=== PATIENT | female | born 1975 | race Caucasian/White ===

== ENCOUNTER 2018-03-16 22:26 | Emergency (ER) | payer MEDICARE, OTHER, SELFPAY ==
[2018-03-16 22:31] VITALS: BP 144/86; PULSE 71; RESP 17; TEMP 36.9; O2SAT 96
--- NOTE | 2018-03-16 22:58 | ED.GENADUL ---
Disposition Clinical Impression: Diarrhea, Dehydration Disposition: HOME Condition: Good Instructions: Dehydration (ED), Acute Diarrhea (ED) Additional Instructions: Small, frequent sips of fluids to maintain hydration. Home to rest this evening. Continue all regularly prescribed medications. Return to the emergency department for any acute concerns. Medical Decision Making - Lab Data Laboratory Results - last 24 hr 03/16/18 03/16/18 23:37 23:37 WBC 7.55 RBC 4.91 Hgb 13.7 Hct 41.0 MCV 83.5 MCH 27.9 MCHC 33.4 RDW 16.0 H Plt Count 185 MPV 11.9 H Immature Gran % 0.1 Neutrophils % 61.8 Lymphocytes % 23.8 Monocytes % 11.3 Eosinophils % 2.6 Basophils % 0.4 Absolute Neutrophils 4.66 Absolute Lymphocytes 1.80 Absolute Monocytes 0.85 H Absolute Eosinophils 0.20 Absolute Basophils 0.03 Sodium 140 Potassium 3.6 Chloride 106 Carbon Dioxide 27.6 Anion Gap 6.4 BUN 19 H Creatinine 0.74 Estimated GFR/1.73 m2 >= 60.00 Glucose 88 Calcium 8.7 Magnesium 2.3 Total Bilirubin 0.4 AST 15 ALT 24 Alkaline Phosphatase 109 Total Protein 6.6 Albumin 3.2 L Results reviewed for labs ordered during visit: Yes - Medical Decision Making 42-year-old female with recurrent diarrhea presents with increased episodes approximately 20 today. She is afebrile and well-appearing. She has increased bowel sounds on exam. Patient had IV access established, given fluid bolus, antiemetic, referred for laboratory testing. Comprehensive panel unremarkable except BUN of 19. White blood cell count 7, hematocrit 41, platelets 185. Patient improved following rehydration. She does likely have a component of short gut syndrome, therefore at risk for rapid GI losses. Able to tolerate liquids by mouth. Subjectively better. Stable and appropriate for home management. History of Present Illness - General Chief complaint: Nausea/Vomit/Diar Stated complaint: SEVERE DEHYDRATION Time Seen by Provider: 03/16/18 22:57 Source: patient, RN notes reviewed Mode of arrival: ambulatory Limitations: no limitations - History of Present Illness Initial comments: Diarrhea: 42-year-old female with a history of recurrent and near daily episodes of loose stool, now somewhat worsened since beginning the ketogenic diet. She also has history of short gut syndrome status post bowel resection. She presents today with generalized moderate weakness, lightheadedness with rising, multiple episodes of diarrhea today. No sniffing and vomiting. She has not had a fever. There has been no blood in the stool. Denies bloating or distention, no increased flatus. No exacerbating or ameliorating factors. - Related Data Lactobacillus Acidophilus [Acidophilus] 1 each PO DAILY 06/23/15 RiTUXimab [Rituxan] 10 mg IV DIRECTED vial 06/23/15 Multivitamin [Multi-Vitamin Daily] 1 each PO DAILY 11/03/15 SUMAtriptan [Imitrex] 50 mg PO 1 PRN,REPEAT IN 1 HR #18 tab 01/14/17 Cholecalciferol (Vitamin D3) [Vitamin D3] 1,000 unit PO DAILY 02/18/17 Folic Acid 1 mg PO DAILY tab-cap 02/28/17 Lactobacillus Rhamnosus R0011 [Probiotic Digestive Care] 1 each PO 02/28/17 Thiamine HCl 100 mg PO DAILY 02/28/17 Trazodone HCl 50 mg PO HS PRN #30 tab 10/11/17 Gabapentin 0 PO HS 11/21/17 Leflunomide 20 mg PO DAILY tab-cap 11/21/17 Apixaban [Eliquis] 5 mg PO BID #60 tab 01/15/18 Clonazepam 1 mg PO BID PRN #28 tab-cap 01/29/18 Allergies Allergy/AdvReac Type Severity Reaction Status Date / Time Sulfa (Sulfonamide Allergy Unknown Wheezing Unverified 01/29/18 12:40 Antibiotics) Latex, Natural Rubber AdvReac Unverified 01/29/18 12:40 medical tape AdvReac Mild local Uncoded 12/24/15 18:24 irritation Review of Systems Other: 6 systems reviewed, otherwise negative Past Medical History - Past Medical History Medical history: arthritis (Rheumatoid), GERD, PE cirrhosis, hernia, renal calculi Surgical history: cholecystectomy, - Social History Alcohol use: rarely, occasionally Drug use: none General Exam - General Limitations: no limitations General appearance: alert, in no apparent distress - Head Head exam: Present: atraumatic, normocephalic - Eye Eye exam: Present: PERRL, EOMI - ENT ENT exam: Present: mucous membranes dry - Neck Neck exam: Present: normal inspection - Respiratory Respiratory exam: Present: normal lung sounds bilaterally. Absent: respiratory distress - Cardiovascular Cardiovascular Exam: Present: regular rate, normal rhythm - GI/Abdominal GI/Abdominal exam: Present: soft, hyperactive bowel sounds. Absent: distended, tenderness - Extremities Exam Extremities exam: Present: normal inspection - Neurological Exam Neurological exam: Present: alert, oriented X3 - Psychiatric Psychiatric exam: Present: normal affect, normal mood - Skin Skin exam: Present: warm, dry, intact Course Vital Signs - 24 hr // 22:31 Temperature 36.9 C Pulse 71 Respiratory 17 Rate Blood Pressure 144/86 Pulse Oximetry 96
[2018-03-16 23:54] LABS: Abs Immature Grans 0.01 k/cumm (0.0-0.09); Absolute Basophil Count 0.03 k/cumm (0.0-0.2); Absolute Monocyte Count 0.85 k/cumm (0.11-0.7); Absolute Neutrophil Count 4.66 k/cumm (1.2-6.7); Basophils % 0.4; Eosinophils % 2.6; HGB 13.7 g/dL (12.0-15.5); Immature Grans % 0.1; Lymphocytes % 23.8; Mean Corp. HGB Concentration 33.4 g/dL (32.0-36.0); Mean Corpuscular Hemoglobin 27.9 pg (27.0-33.0); Mean Corpuscular Volume 83.5 fL (80-95); Mean Platelet Volume 11.9 fL (8.0-11.0); Monocytes % 11.3; Neutrophils % 61.8; Platelet Count 185 x1000/uL (130-400); RBC 4.91 m/cumm (4.00-5.20); White Blood Cell Count 7.55 k/cumm (4.4-10.8)
[2018-03-17] MEDS: Normal Saline 1,000 ML 1000 ML IV ×2 (00:01→00:40)
[2018-03-17] MEDS: Ondansetron 4 MG/2 ML VIAL IVP (00:02)
[2018-03-17 00:10] LABS: ALT 24 U/L (12-78); AST 15 U/L (15-37); Albumin 3.2 g/dL (3.4-5.0); Alkaline Phosphatase 109 U/L (46-116); Anion Gap 6.4 mmol/L (3-11); BUN 19 mg/dL (7-18); Bilirubin, Total 0.4 mg/dL (0.2-1.0); CO2 27.6 mmol/L (21.0-32.0); CREATININE 0.74 mg/dL (0.55-1.02); Calcium 8.7 mg/dL (8.5-10.1); Chloride 106 mmol/L (98-107); Glucose 88 mg/dL (70-100); Magnesium 2.3 mg/dL (1.8-2.4); Potassium 3.6 mmol/L (3.5-5.1); Sodium 140 mmol/L (136-145); Total Protein 6.6 g/dL (6.4-8.2)
[2018-03-17 03:00] VITALS: BP 140/84; PULSE 70; RESP 18; O2SAT 96
== END 2018-03-17 02:29 | disposition home or self-care (01) ==
PROVIDERS: Emergency Provider Emergency Medicine; PCP Nurse Practitioner
DX: R19.7 Diarrhea, unspecified (principal); E86.0 Dehydration; K91.2 Postsurgical malabsorption, not elsewhere classified; R42 Dizziness and giddiness
CPT/HCPCS: 36415; 80053; 96361; 96374; 99284; 83735; 85025; J2405

== ENCOUNTER 2018-10-02 20:20 | Emergency (ER) | payer MEDICARE, OTHER, SELFPAY ==
[2018-10-02 20:26] VITALS: BP 173/58; PULSE 63; RESP 20; TEMP 36.8; O2SAT 98
--- NOTE | 2018-10-02 20:44 | ED.GENADUL_ITS ---
Discharge Plan Disposition Patient Disposition: HOME Condition: Good Discharge Details Chief Complaint: FacialProb Clinical Impression: History of trigeminal neuralgia, TMJ (dislocation of temporomandibular joint) Primary Care Provider: Rosa Elena Conway ED Provider: Esvin Egan Home Meds and New Rx's Prescriptions: New acetaminophen [Mapap Extra Strength] 500 MG tablet 1,000 mg PO Q6H 5 Days Qty: 60 RF: 0 ibuprofen [Motrin IB] 200 MG tablet 600 mg PO Q6H 5 Days Qty: 60 RF: 0 carbamazepine 100 mg capsule, ER multiphase 12 hr 100 mg PO BID Qty: 10 RF: 0 No Action Rituxan 10 MG/1 ML concentrate 10 mg IV DIRECTED RF: 0 Lactobacillus acidophilus 1 EACH capsule 1 ea PO DAILY RF: 0 multivitamin [Daily Multi-Vitamin] 1 EACH tablet 1 ea PO DAILY RF: 0 sumatriptan succinate [Imitrex] 50 MG tablet 50 mg PO 1 PRN,REPEAT IN 1 HR Qty: 18 RF: 3 folic acid 1 MG tablet 1 mg PO DAILY RF: 0 hydroxychloroquine 200 mg Tablet 1 tab PO DAILY RF: 0 Discharge Instructions Instructions: Trigeminal Neuralgia (ED), Temporomandibular Disorder (ED) Additional Instructions: Please take medications as directed. Please follow-up with your primary care provider as soon as possible for reassessment. If you notice any worsening of your symptoms, or any new symptoms such as vomiting, diarrhea, fever, chills, shortness of breath, chest pain, numbness, weakness, or fainting , please return immediately to the emergency department for reevaluation. Please follow up with your primary care provider as soon as possible for reassessment and reevaluation. As always, it was a pleasure participating in your medical care today. Referrals: Rosa Elena Conway, ANA [Primary Care Provider] - Discharge Data Discharge Date/Time-TO BE ENTERED AT DEPARTURE: 10/02/18 21:07 Medical Decision Making This is a very pleasant 43-year-old female who presents today with 1-2 days of signs and symptoms concerning for trigeminal neuralgia complicated by TMJ. She has left-sided jaw pain primarily located over the left temporomandibular joint, however in conjunction with this there is some associated nerve like pain with tingling, is a cold-like sensation, and sharp sensation over the trigeminal nerve distribution. Physical exam demonstrates no neurologic abnormalities, and a clinical and neurologic exam inconsistent with a CVA or stroke. Because of the nature of the patient's pain, I did perform a local block with a 50-50 mixture of 1% lidocaine and 0.25% bupivacaine with no epinephrine. 8 cc total were injected, 4 over the left TMJ, and for the location of her tooth that was previously removed at the patient's personal request. The patient had complete resolution of her symptoms with this. With no clinical evidence of abscess in the tooth, no jaw abnormalities on exam, reassuring vital signs, no systemic symptoms concerning for fever, and a physical exam inconsistent with ACS, or a neurologic abnormality upstroke, feel that her signs and symptoms at this time are clinically consistent with trigeminal neuralgia and TMJ pain. With complete resolution of her symptoms after block, we will prescribe carbamazepine for trigeminal neuralgia, and r ecommend continued Tylenol or Motrin. We discussed the importance of follow-up with her dentist as well as her PCP and the patient understands. I have extensively reviewed the treatment plan and discharge instructions with the patient and their family. I have addressed all patient concerns at this time. The patient and family was made aware of what symptoms to monitor for that would warrant a return to the emergency department. Discussed the plan with the patient and family, they demonstrate verbal understanding and agreement with our assessment and plan at this time. HPI General Date/Time Provider Initiated Documentation: 10/02/18 20:28 . HPI Narrative: This is a pleasant 43-year-old female with a past medical history of rheumatoid arthritis, who presents today for left jaw and left tooth pain. The patient states that 2-3 weeks ago she had her bottom left tooth removed, and since then has had some residual numbness and tingling, however over the last 1- 2 days she has noted significant left TMJ pain, as well as pain near to the area where her tooth was removed. She describes it as a burning and sharp-like sensation with cold stabbing-like sensation as well. It radiates in the distribution of the trigeminal nerve over the left upper forehead, face and left jaw. No associated radiation to the neck, no pain or associated symptoms in the chest, shoulders, or arms. She denies any chest pressure or heaviness. She denies any history of cardiac disease or any family history of cardiac disease. Symptoms are made worse with chewing. They are not improved with Tylenol. She denies any trauma, and she denies any systemic symptoms of fever or chills. She has no other complaints at this time. Related Data Home Medications Medication Instructions Recorded Confirmed Lactobacillus acidophilus 1 ea PO DAILY 06/23/15 10/02/18 Rituxan 10 mg IV DIRECTED vial 06/23/15 10/02/18 multivitamin [Daily Multi-Vitamin] 1 ea PO DAILY 11/03/15 10/02/18 sumatriptan succinate [Imitrex] 50 mg PO 1 PRN,REPEAT IN 1 HR #18 01/14/17 tab folic acid 1 mg PO DAILY tab-cap 02/28/17 10/02/18 acetaminophen [Mapap Extra 1,000 mg PO Q6H 5 Days #60 tab 10/02/18 Strength] carbamazepine 100 mg PO BID #10 cap 10/02/18 hydroxychloroquine 1 tab PO DAILY 10/02/18 10/02/18 ibuprofen [Motrin Ib] 600 mg PO Q6H 5 Days #60 tab 10/02/18 Previous Rx's Medication Instructions Recorded acetaminophen [Mapap Extra 1,000 mg PO Q6H 5 Days #60 tab 10/02/18 Strength] carbamazepine 100 mg PO BID #10 cap 10/02/18 ibuprofen [Motrin Ib] 600 mg PO Q6H 5 Days #60 tab 10/02/18 Allergies Allergy/AdvReac Type Severity Reaction Status Date / Time Sulfa (Sulfonamide Allergy Unknown Wheezing Unverified 10/02/18 20:36 Antibiotics) Latex, Natural Rubber AdvReac Unverified 10/02/18 20:36 medical tape AdvReac Mild local Uncoded 10/02/18 20:36 irritation General Stated Complaint: FacialProb SINTIA: 3 Review of Systems Review of Systems All systems reviewed & are unremarkable except as noted in HPI and below PFSH Medical History Dysmenorrhea Pulmonary embolism Surgical History section (~2011) Ligation of fallopian tube (12/08/11) Family History Mother No problems noted. Father No problems noted. Social History Smoking/Tobacco Use Status: Never Exam Narrative Exam Narrative: 1.Const: Well-nourished, Well-developed, appearing stated age 2.Eyes: PERRL, no conjunctival injection, and symmetrical lids. 3.ENT: Atraumatic external nose and ears. Moist MM. Neck: Symmetric, trachea midline, No thyromegaly. Worsening tenderness on palpation over the TMJ, as well as over the left lower jaw. No neck tightness or stiffness. Oral exam demonstrates no evidence of abscess, fluctuance around the removed tooth, or other abnormalities. No dental caries. Removed tooth location demonstrates excellent gingival healing. 4.CVS: +S1/S2, No murmurs or gallops. Peripheral pulses 2+ and equal in all extremities. Brisk capillary refill in all extremities. 5.RESP: Unlabored respiratory effort. Clear to auscultation bilaterally. No wheezes rales or rhonchi 6.GI: Soft, Nontender/Nondistended, No hepatosplenomegaly. No guarding or rebound. 7.MSK: Normocephalic/Atraumatic, Extremities w/o deformity or ttp No cyanosis or clubbing, Normal movement of all extremities 8.Skin: Warm, Dry. No rashes or lesions. 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 Sensation grossly intact, no focal neurologic deficits. All 6 cardinal planes of vision are fully intact. No evidence of rotatory or vertical nystagmus. The patient demonstrated a normal [id number], good dexterity. There was no evidence of dysdiadochokinesia. Patient was able to ambulate without difficulty. There was no wide-based gait. Romberg, and oesm-[id number] are both normal on testing. Sensation was intact bilaterally as well as muscle strength bilaterally for all extremities. Patient was able to verbalize butter cup with no slurring, or miss pronunciation. 10.Psych: (AAO) x3. Appropriate mood and affect Course Vital Signs Temperature 36.8 C 10/02/18 20:26 Pulse 63 10/02/18 20:26 Respiratory Rate 20 10/02/18 20:26 Blood Pressure 173/58 H 10/02/18 20:26 Pulse Oximetry 98 10/02/18 20:26 Temperature 36.8 C 10/02/18 20:26 Temperature Source Temporal Artery Scan 10/02/18 20:26 Pulse 63 10/02/18 20:26 Respiratory Rate 20 10/02/18 20:26 Respiratory Effort Non-Labored 10/02/18 20:26 Blood Pressure 173/58 H 10/02/18 20:26 Blood Pressure Position Sitting 10/02/18 20:26 Pulse Oximetry 98 10/02/18 20:26 Oxygen Delivery Method Room Air 10/02/18 20:26 Oxygen Flow Rate 0 10/02/18 20:26 Pain Level 8 10/02/18 20:30
[2018-10-02 21:18] VITALS: BP 173/58; PULSE 77; RESP 16; TEMP 36.9; O2SAT 98
== END 2018-10-02 21:07 | disposition home or self-care (01) ==
LOC: ER 20:59
PROVIDERS: Emergency Provider Student in an Organized Health Care Education/Training Program; PCP Nurse Practitioner
DX: G50.0 Trigeminal neuralgia (principal); M26.622 Arthralgia of left temporomandibular joint; Y84.8 Other medical procedures as the cause of abnormal reaction of the patient, or of later complication, without mention of misadventure at the time of the procedure
CPT/HCPCS: 64402

== ENCOUNTER 2018-10-05 02:02 | Emergency (ER) | payer MEDICARE, SELFPAY ==
[2018-10-05 02:10] VITALS: BP 165/100; PULSE 84; RESP 20; TEMP 37; O2SAT 100
--- NOTE | 2018-10-05 02:19 | W.ED.GENAD ---
Discharge Plan Disposition Patient Disposition: HOME Condition: Good Discharge Details Chief Complaint: DentalOral Clinical Impression: Dental infection Primary Care Provider: Rosa Elena Conway ED Provider: Johnny Palomares Meds and New Rx's Prescriptions: New hydrocodone-acetaminophen 10-325 mg Tablet 1 tab PO Q6H PRN (Reason: Pain) Qty: 10 RF: 0 amoxicillin-pot clavulanate [Augmentin] 875-125 mg tablet 1 tab PO BID Qty: 14 RF: 0 Continued Rituxan 10 MG/1 ML concentrate 10 mg IV DIRECTED RF: 0 Lactobacillus acidophilus 1 EACH capsule 1 ea PO DAILY RF: 0 multivitamin [Daily Multi-Vitamin] 1 EACH tablet 1 ea PO DAILY RF: 0 sumatriptan succinate [Imitrex] 50 MG tablet 50 mg PO 1 PRN,REPEAT IN 1 HR Qty: 18 RF: 3 folic acid 1 MG tablet 1 mg PO DAILY RF: 0 hydroxychloroquine 200 mg Tablet 1 tab PO DAILY RF: 0 ibuprofen [Motrin IB] 200 MG tablet 600 mg PO Q6H 5 Days Qty: 60 RF: 0 Discontinued acetaminophen [Mapap Extra Strength] 500 MG tablet 1,000 mg PO Q6H 5 Days Qty: 60 RF: 0 carbamazepine 100 mg capsule, ER multiphase 12 hr 100 mg PO BID Qty: 10 RF: 0 Discharge Instructions Instructions: Dental Abscess (ED) Additional Instructions: You appear to have a dental infection. Please take antibiotic as directed. You may use the hydrocodone/acetaminophen for severe pain. Use ibuprofen for mild pain. Contact your dentist on Saturday for follow-up. Return to ED for difficulty breathing, inability to swallow, worsening pain or swelling to the face, high fever. Medical Decision Making Patient appears to have a significant dental infection as a cause of her pain and swelling. She is quite uncomfortable and crying. She is given Augmentin for the infection. She is given hydrocodone/acetaminophen for pain. She is also given an injection of Toradol. Patient eventually got enough relief that she was comfortable. She did develop some nausea and was given Zofran ODT. She will be discharged home to continue Augmentin. She is given a hydrocodone/acetaminophen for use in the morning as well as prescription for 10 more. She was given the state information sheet and informed consent was signed. She was told not to use regular Tylenol while using hydrocodone/acetaminophen. She may continue to use Motrin. She needs to contact her dentist on Saturday for follow-up. Return to ED for fever, difficulty breathing, inability to swallow, worsening pain swelling of the face. HPI General Mode of arrival: ambulatory. Date/Time Provider Initiated Documentation: 10/05/18 02:05. Limitations to Documentation: no limitations. Information obtained by: patient. HPI Narrative: Patient presents with left jaw pain and swelling. Patient seen here a few days ago for jaw pain. At that time had an injection and was prescribed medications for trigeminal neuralgia as well as possible dental problem. She has been unable to get the carbamazepine filled. She does have an appointment to see primary care. Pain has never really got better. If anything it is worse. Tonight her face began to swell up. She is not having any difficulty breathing. She has discomfort with swallowing but is able to swallow. She is in a significant amount of pain and comes in for evaluation. Related Data Home Medications Medication Instructions Recorded Confirmed Lactobacillus acidophilus 1 ea PO DAILY 06/23/15 10/02/18 Rituxan 10 mg IV DIRECTED vial 06/23/15 10/05/18 multivitamin [Daily Multi-Vitamin] 1 ea PO DAILY 11/03/15 10/05/18 sumatriptan succinate [Imitrex] 50 mg PO 1 PRN,REPEAT IN 1 HR #18 01/14/17 10/05/18 tab folic acid 1 mg PO DAILY tab-cap 02/28/17 10/05/18 hydroxychloroquine 1 tab PO DAILY 10/02/18 10/05/18 ibuprofen [Motrin IB] 600 mg PO Q6H 5 Days #60 tab 10/02/18 10/05/18 amoxicillin-pot clavulanate 1 tab PO BID #14 tab 10/05/18 [Augmentin] hydrocodone-acetaminophen 1 tab PO Q6H PRN #10 tab 10/05/18 Previous Rx's Medication Instructions Recorded ibuprofen [Motrin IB] 600 mg PO Q6H 5 Days #60 tab 10/02/18 amoxicillin-pot clavulanate 1 tab PO BID #14 tab 10/05/18 [Augmentin] hydrocodone-acetaminophen 1 tab PO Q6H PRN #10 tab 10/05/18 Allergies Allergy/AdvReac Type Severity Reaction Status Date / Time Sulfa (Sulfonamide Allergy Unknown Wheezing Unverified 10/05/18 02:17 Antibiotics) Latex, Natural Rubber AdvReac Unverified 10/05/18 02:17 medical tape AdvReac Mild local Uncoded 10/05/18 02:17 irritation General Stated Complaint: DentalOral SINTIA: 4 Review of Systems Constitutional Denies chills, Denies fever(s), Reports headache(s) and Denies weakness Eyes Denies change in vision and Denies eye pain ENT Reports dental pain, Denies otalgia, Reports facial pain, Reports headache(s), Denies lip swelling, Reports neck pain, Denies throat swelling and Denies tongue swelling Cardiovascular Denies dyspnea Respiratory Denies cough, Denies dyspnea and Denies stridor Musculoskeletal Reports neck pain and Denies numbness Integumentary/Breasts Denies erythema Neurologic Denies confusion, Reports headache(s), Denies focal weakness, Denies numbness and Denies weakness Psychiatric Denies confusion Allergic/Immunologic Denies lip swelling, Denies throat swelling and Denies tongue swelling [facility] Medical History Dysmenorrhea Pulmonary embolism Surgical History section (~2011) Ligation of fallopian tube (12/08/11) Family History Mother No problems noted. Father No problems noted. Social History Smoking/Tobacco Use Status: Never Exam Const General: cooperative and uncomfortable Orientation: alert and oriented x3 HENMT Head: normocephalic and atraumatic Ears: external ears normal Face and sinus: no erythema, no fluctuance, tenderness on the left mandible and other (left mandibular/facial swelling) Mouth: oropharynx normal Teeth and gingiva: gingiva normal and other (percussion tenderness of 18) Throat: posterior oropharynx normal and uvula midline Neck Neck: no lymphadenopathy, trachea midline, supple and tender (left anterior neck under jaw) Resp Effort & Inspection: normal respiratory effort and no stridor Auscultation: clear to auscultation bilaterally Skin General skin exam: no erythema Neuro General: alert, moves all extremities, no focal motor deficits and CN's II-XI intact bilaterally Course Vital Signs Temperature 98.6 F 10/05/18 02:10 Pulse 84 10/05/18 02:10 Respiratory Rate 20 10/05/18 02:10 Blood Pressure 165/100 H 10/05/18 02:10 Pulse Oximetry 100 10/05/18 02:10 Temperature 98.6 F 10/05/18 02:10 Temperature Source Temporal Artery Scan 10/05/18 02:10 Pulse 84 10/05/18 02:10 Respiratory Rate 20 10/05/18 02:10 Respiratory Effort 10/05/18 02:10 Blood Pressure 165/100 H 10/05/18 02:10 Pulse Oximetry 100 10/05/18 02:10 Oxygen Delivery Method Room Air 10/05/18 02:10 Oxygen Flow Rate 0 10/05/18 02:10 Pain Level 10 10/05/18 02:16
[2018-10-05] MEDS: Amoxicillin 875/Clav. 125 TAB PO (02:31)
[2018-10-05] MEDS: HYDROcodone 10/Acetaminophen 325 TAB PO ×2 (02:37→03:32)
[2018-10-05] MEDS: Ketorolac 30 MG/ML VIAL IM (02:57)
[2018-10-05] MEDS: Ondansetron O.D.T. 4 MG TABEF PO (03:31)
== END 2018-10-05 03:55 | disposition home or self-care (01) ==
PROVIDERS: Emergency Provider Emergency Medicine; PCP Nurse Practitioner
DX: K04.7 Periapical abscess without sinus (principal)
CPT/HCPCS: 96372; 99284; J1885; J3490

== ENCOUNTER 2020-09-29 03:01 | Outpatient (CLI) | payer MEDICARE, SELFPAY ==
--- NOTE | 2020-09-29 15:59 | DI.MAMMO_ITS ---
EXAM: MG MAMMO SCREENING CLINICAL HISTORY: screening,Z12.39 TECHNIQUE: Bilateral full field digital CC and MLO mammographic images were obtained with 3D tomosyn thesis and utilizing computer aided detection (CAD). COMPARISON: Available for comparison. FINDINGS: Masses/Architectural Distortion: None seen. Microcalcifications: No suspicious pleomorphic-type are seen. Skin Thickening/Nipple Retraction: None. IMPRESSION: 1. No significant interval change with no specific features of malignancy noted. 2. Unless there is more urgent need, screening mammography is recommended, as per [employer] guidelines. BI-RADS Category 1 - Negative Breast Density - Category B - Scattered areas of fibroglandular density Breast density category C or D implies that the patient has dense breast tissue. Dense breast tissue is very common and is not abnormal but dense breast tissue can make it harder to find cancer on a ma mmogram. Also, dense breast tissue may increase their breast cancer risk. This information about the result of the mammogram report was provided to the patient to raise their awareness. Use this report when you speak with the patient about their risks for breast cancer, which includes their family hist ory. At that time, you may recommend for more screening tests (Ultrasound or MRI) as they might be us eful based on their risk. A negative radiographic report should not delay biopsy if a dominant or clinically suspicious mass is present. Up to ten percent of cancers are not identified on mammography. A negative report may reinforce clinical impression. Adenosis and dense breasts may obscure an underlying neoplasm. False positive reports average 6 to 10%. Patient will receive a letter notifying them of these results.
== END 2020-09-29 03:21 ==
PROVIDERS: PCP Nurse Practitioner; Visit Provider Nurse Practitioner
DX: Z12.31 Encounter for screening mammogram for malignant neoplasm of breast (principal)
CPT/HCPCS: 77063; 77067

== ENCOUNTER 2020-10-25 00:49 | Outpatient (CLI) | payer MEDICARE, OTHER, SELFPAY ==
--- NOTE | 2020-10-25 07:45 | DI.US_ITS ---
EXAM: US PELVIS TRANSVAGINAL CLINICAL HISTORY: dysfunctional uterine bleeding, n93.8 TECHNIQUE: Ultrasound performed using standard protocol. COMPARISON: US RENAL ULTRASOUND(P) from 10/08/2016 FINDINGS: Pelvic ultrasound was performed transabdominally and transvaginally. Uterus measures 10.8 x 3.2 x 4. 3 cm in diameter. The endometrial stripe is not well visualized myometrium is grossly unremarkable. There are a couple of small nabothian cysts. Left ovary is nonvisualized. Right ovary measures 18 x 9 x 9 millimeters and has an unremarkable fol licular appearance. Limited scanning of the kidneys shows no gross hydronephrosis or nephrolithiasis. No free fluid identified in the cul-de-sac. IMPRESSION: Technically poor visualization of endometrial stripe. Otherwise uterus unremarkable. Left ovary non visualized, right ovary unremarkable in appearance. DATA REPOSITORY:
== END 2020-10-25 00:50 ==
LOC: DI 00:50
PROVIDERS: PCP Nurse Practitioner; Visit Provider Obstetrics & Gynecology
DX: N93.8 Other specified abnormal uterine and vaginal bleeding (principal)
CPT/HCPCS: 76830; 76856

== ENCOUNTER 2020-11-01 15:34 | Outpatient (REF) | payer MEDICARE, OTHER, SELFPAY ==
--- NOTE | 2020-11-01 15:00 | ENDOMET_PTH ---
PATIENT: Monique Zamora LOC: [facility] U#:[id number] AGE/SX: 45/F ROOM: RE11/01/[address]: Brittney Rodriguez DO : 1975 BED: DIS: 11/01/2020 SPEC #: [id number] RECD: 11/01/20 17:36 STATUS: LEAH REQ #: [id number] NIESHA: 11/01/20 15:[address]: Brittney Rodriguez DEPT: Surgical Specimen RECD BY: Kenia Bender ENTERED: 11/01/20 17:36 SP TYPE: Endomet OTHR DR: Rosa Elena Conway APRN Tissues: 1 - ENDOMETRIUM BX/GRACIA Procedures: GROSS AND MICRO LEVEL 4 Comments: [id number]
== END 2020-11-01 15:35 | disposition home or self-care (01) ==
LOC: LBN 15:34
PROVIDERS: PCP Nurse Practitioner; Visit Provider Obstetrics & Gynecology
DX: N85.8 Other specified noninflammatory disorders of uterus (principal); N93.8 Other specified abnormal uterine and vaginal bleeding
CPT/HCPCS: 88305

== ENCOUNTER → 2020-11-25 13:41 | Outpatient (CLI) | payer MEDICARE, OTHER, SELFPAY ==
--- NOTE | 2020-11-25 15:36 | DI.RAD_ITS ---
EXAM: XR ANKLE LT COMPLETE CLINICAL HISTORY: glass lac r/o foreign body, laceration with ankle complication, S91.019A TECHNIQUE: 2D digital imaging was performed. COMPARISON: No exams were available for comparison FINDINGS: BONES: No acute fracture is present. No bony destructive lesion is seen. Heel spurs. JOINTS:The ankle mortise is normally aligned. SOFT TISSUE: Soft tissue swelling, greater medially. No foreign body is visible. IMPRESSION: Soft tissue swelling. No visible foreign body DATA REPOSITORY: RADIATION DOSE DELIVERED:
== END ==
PROVIDERS: PCP Nurse Practitioner; Visit Provider Nurse Practitioner Family
DX: S91.019A Laceration without foreign body, unspecified ankle, initial encounter (principal); M79.89 Other specified soft tissue disorders
CPT/HCPCS: 73610

== ENCOUNTER 2020-11-25 15:59 | Outpatient (REF) | payer MEDICARE, OTHER, SELFPAY | END 2020-11-25 16:00 | disposition home or self-care (01) | LOC: LBN 15:59 | PROVIDERS: PCP Nurse Practitioner; Visit Provider Nurse Practitioner Family | DX: S91.012A Laceration without foreign body, left ankle, initial encounter (principal); L03.116 Cellulitis of left lower limb | CPT/HCPCS: 87070; 87205 ==

== ENCOUNTER 2021-11-20 13:21 | Outpatient (CLI) | payer MEDICARE, SELFPAY ==
[2021-11-20 13:26] LABS: Abs Immature Grans 0.02 10^3/uL (0.0-0.06); Absolute Basophil Count 0.03 10^3/uL (0.0-0.2); Absolute Eosinophil Count 0.14 10^3/uL (0.0-0.7); Absolute Lymphocyte Count 1.94 10^3/uL (1.2-3.4); Absolute Monocyte Count 0.44 10^3/uL (0.1-0.8); Absolute Neutrophil Count 4.08 10^3/uL (1.2-6.7); Basophils % 0.5; ESR 23 mm/hr (0-20); Eosinophils % 2.1; HCT 44.8 % (36.0-46.0); HGB 15.2 g/dL (11.2-15.7); Immature Grans % 0.3; Lymphocytes % 29.2; MCH 28.4 pg (27.0-33.0); MCHC 33.9 % (32.0-36.0); MCV 83.6 fL (80-95); MPV 9.3 fL (8.0-11.0); Monocytes % 6.6; Neutrophils % 61.3; Nucleated RBC 0 %; Platelet Count 218 10^3/uL (130-400); RBC 5.36 10^6/uL (3.93-5.22); RDW 13.3 % (11.7-14.6); RDW-SD 40.6 fL; WBC 6.65 10^3/uL (4.4-10.8)
[2021-11-20 14:17] LABS: ALT 48 U/L (14-59); AST 34 U/L (15-37); Alkaline Phosphatase 116 U/L (46-116); Anion Gap 10.8 mmol/L (3-11); BUN 18 mg/dL (7-18); Bilirubin, Total 0.5 mg/dL (0.2-1.0); C-Reactive Protein 2.67 mg/dL (0.0-0.3); CO2 24.2 mmol/L (21.0-32.0); CREATININE 0.9 mg/dL (0.55-1.02); Calcium 9.2 mg/dL (8.5-10.1); Chloride 105 mmol/L (98-107); Glucose 111 mg/dL (74-106); Magnesium 2.3 mg/dL (1.8-2.4); Potassium 4.2 mmol/L (3.5-5.1); Sodium 140 mmol/L (136-145); Total Protein 7.2 g/dL (6.4-8.2)
[2021-11-20 14:39] LABS: Vitamin D 25 Total 37.2 ng/mL (30-100)
[2021-11-21 11:50] LABS: Lyme Ab w Rflx to Lyme Confirm Negative (Negative)
== END 2021-11-20 13:22 | disposition home or self-care (01) ==
LOC: LBO 13:29
PROVIDERS: PCP Nurse Practitioner; Visit Provider Nurse Practitioner
DX: R52 Pain, unspecified (principal); Z79.899 Other long term (current) drug therapy; J45.909 Unspecified asthma, uncomplicated
CPT/HCPCS: 36415; 80053; 82306; 85652; 83735; 85025; 86140; 86618

== ENCOUNTER 2022-08-04 16:14 | Emergency (ER) | payer MEDICARE, SELFPAY ==
--- NOTE | 2022-08-04 16:18 | NUR.NOTE ---
Nursing Note: Patient brought in by EMS and delivered to Waiting room, Recieved Call from access stating patient was leaving, PT states that they are leaving, did not want to wait, and is going to try to be seen at [facility]
--- OUTSIDE RECORDS SUMMARY | 2022-08-04 16:22 | XMS_ITS | Encounter Summary ---
:1975 Author Organization [facility] [place] [address] Care Team Providers Name Role Phone Rosa Elena Conway APRN Primary Care Provider Encounter Details Date Type Department Care Team Description 07/25/2022 Telephone Rheumatology at [facility] [place] [address] Social History Tobacco Use Types Packs/Day Years Used Date Smoking Tobacco: Every Day Cigarettes 1 Smokeless Tobacco: Never Alcohol Use Standard Drinks/Week Comments No 0 (1 standard drink = 0.6 oz pure alcoho l) Sex Assigned at Date Recorded Not on file documented as of this encounter Plan of Treatment Not on filedocumented as of this encounter Visit Diagnoses Not on filedocumented in this encounter Care Teams Goodwill Ambassador Relationship Specialty Start Date End Date Rosa Elena Conway APRN PCP - General Internal Medicine 11/21/17 [address] [place], [place] [id number] documented as of this encounter
--- OUTSIDE RECORDS SUMMARY | 2022-08-04 16:22 | XMS_ITS | Encounter Summary ---
:1975 Author Organization [facility] [place] [address] Care Team Providers Name Role Phone Rosa Elena Conway APRN Primary Care Provider Reason for Visit Reason Onset Date Comments Medication Refill 07/24/2022 Encounter Details Date Type Department Care Team Description 07/24/2022 Refill Rheumatology at [facility] Nia Munguia RN Seropositive rheumatoid [facility] [place] [address] Social History Tobacco Use Types Packs/Day Years Used Date Smoking Tobacco: Every Day Cigarettes 1 Smokeless Tobacco: Never Alcohol Use Standard Drinks/Week Comments No 0 (1 standard drink = 0.6 oz pure alcoho l) Sex Assigned at Date Recorded Not on file documented as of this encounter Miscellaneous Notes Telephone Encounter - Nia Munguia RN - 07/24/2022 2:23 PM EST Call back to the patient. Nurse gave message the Provider would like to see her as it has been quite some time(over a year). The patient will call back and make an appointment. Telephone Encounter - Nia Munguia RN - 07/24/2022 1:21 PM EST Patient took last Methylprednisolone today and is the only way she manages her flares and really needs to have the additional doses as is out. Message sent to Provider to review. documented in this encounter Plan of Treatment Not on filedocumented as of this encounter Visit Diagnoses Diagnosis Seropositive rheumatoid arthritis Rheumatoid arthritis documented in this encounter Care Teams Line Installer Relationship Specialty Start Date End Date Rosa Elena Conway APRN PCP - General Internal Medicine 11/21/[address] [place] [address] documented as of this encounter
--- OUTSIDE RECORDS SUMMARY | 2022-08-04 16:22 | XMS_ITS | Encounter Summary ---
:1975 Author Organization [facility] [place] [address] Care Team Providers Name Role Phone Rosa Elena Conway APRN Primary Care Provider Encounter Details Date Type Department Care Team Description 12/22/2021 Refill Rheumatology at [facility] [place] [address] Social History Tobacco Use Types Packs/Day Years Used Date Smoking Tobacco: Every Day Cigarettes 1 Smokeless Tobacco: Never Alcohol Use Standard Drinks/Week Comments No 0 (1 standard drink = 0.6 oz pure alcoho l) Sex Assigned at Date Recorded Not on file documented as of this encounter Miscellaneous Notes Telephone Encounter - Nia Munguia RN - 12/22/2021 1:31 PM EDTSummary: Call back to the patient. Call back to patient to provider message from Provider as stated below: Per Shon CASTILLO no rx, pt has a hx of prednisone induced psychosis if she is having a flare, she can call her PCP or go to urgent care for immediate treatment she needs to be seen and does not have a scheduled appointment. Nurse states she had attempted to contact her(patient) The phone had gone to voicemail which was full/not able to leave a message to have her return the call back. Patient said Oh, I just got off the phone with the Provider, he called me directly. He said he will call in a Medrol Pack I cannot believe this. I do not want to see that Provider again I want to change to a different Provider, more in line with how I am, and to discuss my situation with I was berated on why I had not done things. I was not able to go see a Urologist as the Provider did not place the referral, and labs not ordered. This nurse encouraged the patient to chose one of the other, possibly female providers. The patient may be more comfortable with them and their style of doctoring? The patient thinks this would be good idea, and will call back later to re- schedule the appointment with a different clinician. Nurse discussed situation with Ana Lozoya DO. Dr Lozoya suggested Kimi Genao APRN for possible provider to have appointment with. Telephone Encounter - Nia Munguia RN - 12/22/2021 1:22 PM EDT TC to the patient many times(5 times). Mailbox full and not able to received any message at this time. Nurse also sent a message through [facility] Portal to go to urgent care/call PCP for more immediate treatment per Shon CASTILLO. Nurse will see if able to reach emergency contact-if appropriate. Telephone Encounter - Nia Munguia RN - 12/22/2021 10:39 AM EDT Caller: Patient Relationship: Self Clarified Two Patient Identifiers: [x] Reason For Call: Achiness x one week multiple sites Assessment/Symptom Review (onset, location, duration, what makes it better or worse, pertinent positives and negatives): Patient reported increase discomfort starting approximately one week ago. She currently is off all the RA medications. I try to stay off everything I can. Baseline complaints of joint stiffness, especially to arms bilaterally,hips, and knee. It is everywhere and then it changes. When asked about any sites red/hot/swollen patient states the worst spots are her Elbows, ribs, and hand. Sleeping poorly, and her family/ has had to help with activizes and movement in her home. This has been very troubling to her. Denied f/c/n/v and no complaints verbalized regarding urinary/bowels at this time. Has been using her Hot tub,seems to help some. I don't really want to be taking a Medrol Pack, but I know this is what I have to do Patient uses [facility] in [facility] for pharmacy needs. Nurse states she will send this note to the Provider. Nurse to call her with updated information and possible medication she may receive. Review of Systems Related to Reason for Call: System POS NEG Not Applicable Head (ENT /Neuro) [] [x] [] Cardiac [] [x] [] Respiratory [] [x] [] GI [] [x] [] [] [x] [] Musculoskeletal [x] [] [] Integumentary [] [x] [] Mental Health [] [x] [] Select Specific Decision Support Tool Used: Telephone Triage Protocols for Nurses, 5th Edition, Lilliam Garcia, 2016 Name of Guideline/Protocol Used: Pain Disposition/Plan of Care: Defer to provider recommendation Patient/Caregiver verbalizes understanding of plan of care: Yes Patient/Caregiver agrees with plan: Yes Advised patient/caregiver to: call office back for any new or worsening symptoms Patient/Caregiver demonstrates understanding via teach back: Yes documented in this encounter Plan of Treatment Not on filedocumented as of this encounter Visit Diagnoses Not on filedocumented in this encounter Care Teams Creative Art Director Relationship Specialty Start Date End Date Rosa Elena Conway APRN PCP - General Internal Medicine 11/21/17 [address] [place] [address] documented as of this encounter
--- OUTSIDE RECORDS SUMMARY | 2022-08-04 16:22 | XMS_ITS | Encounter Summary ---
:1975 Author Organization [facility] Address [address] [place] [address] Care Team Providers Name Role Phone Ramila Conwayilene Orantes APRN Primary Care Provider Reason for Visit Reason Comments Specialty Pharmacy Review abatacept (Orencia) 125 mg/m L Auto-Injector Encounter Details Date Type Department Care Team Description 03/08/2021 Specialty Pharmacy Pharmacy at [facility] Review (a [address] (Orencia) 125 mg/mL [place], [place] Auto-Injector) [id number] Social History Tobacco Use Types Packs/Day Years Used Date Smoking Tobacco: Every Day Cigarettes 0.5 Smokeless Tobacco: Never Alcohol Use Standard Drinks/Week Comments No 0 (1 standard drink = 0.6 oz pure alcoho l) Sex Assigned at Date Recorded Not on file documented as of this encounter Progress Notes [facility] - 03/08/2021 11:59 PM EDT The - Specialty Pharmacy has completed a benefits investigation for Monique Zamora to review their eligibility to fill at [facility]. Per patient's medication list they are prescribed abatacept (Orencia) 125 mg/mL Auto-Injector and the medication is able to be filled at the [facility]; however, due to excessive patient pay amount under current insurance plan, patient was advised to pursue sustainability director support. documented in this encounter Plan of Treatment Not on filedocumented as of this encounter Visit Diagnoses Not on filedocumented in this encounter Care Teams All Terrain Vehicle Racer Relationship Specialty Start Date End Date Rosa Elena Conway APRN PCP - General Internal Medicine 11/21/[address] [place] [address] documented as of this encounter
--- OUTSIDE RECORDS SUMMARY | 2022-08-04 16:22 | XMS_ITS | Encounter Summary ---
:1975 Author Organization [facility] [place] [address] Care Team Providers Name Role Phone ManRosa Elena APRN Primary Care Provider Encounter Details Date Type Department Care Team Description 12/22/2021 Orders Only [place] [facility] Shon Cabrera Seropositive [facility] JONATHAN [place] [address] [place] [address] R[place]UMATOLOGY [place] [id number] Social History Tobacco Use Types Packs/Day Years Used Date Smoking Tobacco: Every Day Cigarettes 1 Smokeless Tobacco: Never Alcohol Use Standard Drinks/Week Comments No 0 (1 standard drink = 0.6 oz pure alcoho l) Sex Assigned at Date Recorded Not on file documented as of this encounter Progress Notes Shon Cabrera PA - 12/22/2021 1:04 PM EDT Patient complaining of a polyarticular flare. Since her last visit patient reports that she has not been on hydroxychloroquine for probably about 5 years last prescription sent in by Dr. Knott was never picked up. Patient and her feel that the majority of her medical problems were related to her medical care and the medications she has been on. Patient feels that the majority of her problems are related to diet. The keto diet has been very helpful to her. 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 However her and her feel that she needs to try some intermittent low-dose Medrol to try and get her arthralgias under control because roghtnow they are severe, both hands are swollen and puffy, she has other arthralgias as well. They are aware of the side effects and will keep the dose down as low as reasonably possible. I did have the suspicion that she might be having recurrent cppd exacerbations at her last visit she was prescribed colchicine she did not pick it up because of the expense. Her and her just want to deal with the acute flareup and desires no additional intervention for now. I did suggest a retrial of hydroxychloroquine. Also discussed the implications of celiac disease. Patient was offered as needed Xanax to help deal with any anxiety caused by Medrol they declined. She takes neither NSAIDs nor tramadol although both were listed in the chart. It sounds like theremay have been an issue with tramadol in the past. May follow up here PRN, patient and generally unhappy with their medical care history. documented in this encounter Plan of Treatment Not on filedocumented as of this encounter Visit Diagnoses Diagnosis Seropositive rheumatoid arthritis Rheumatoid arthritis documented in this encounter Care Teams Thread Singer Relationship Specialty Start Date End Date Rosa Elena Conway APRN PCP - General Internal Medicine 11/21/[address] [place] [address] documented as of this encounter
--- OUTSIDE RECORDS SUMMARY | 2022-08-04 16:22 | XMS_ITS | Encounter Summary ---
:1975 Author Organization [facility] [place] [address] Care Team Providers Name Role Phone Rosa Elena Conway APRN Primary Care Provider Encounter Details Date Type Department Care Team Description 06/08/2021 Office Visit Rheumatology at [facility] Shon Cabrera Seropositive rheumatoid arth ritis (Primary Dx); [facility] JONATHAN Molina Seropositive rheumatoid arthritis of [place] [facility] current use of non -steroidal anti-inflammatories (NSAID); [place] [address] CENTER Fibromyalgia; [phone] RHEUMATOLOGY Obesity, unspecified classification, uns pecified obesity type, unspecified whether serious comorbidity present [place], [place] [address] Social History Tobacco Use Types Packs/Day Years Used Date Smoking Tobacco: Every Day Cigarettes 1 Smokeless Tobacco: Never Alcohol Use Standard Drinks/Week Comments No 0 (1 standard drink = 0.6 oz pure alcoho l) Sex Assigned at Date Recorded Not on file documented as of this encounter Last Filed Vital Signs Vital Sign Reading Time Taken Comments Blood Pressure 143/89 06/08/2021 12:45 PM EDT Pulse 77 06/08/2021 12:45 PM EDT Temperature 37.2 ??C (99 ??F) 06/08/2021 12:45 PM EDT Respiratory Rate - - Oxygen Saturation 100% 06/08/2021 12:45 PM EDT Inhaled Oxygen Concentration - - Weight 99.8 kg (220 lb) 06/08/2021 12:45 PM EDT Height - - Body Mass Index 41.59 09/23/2020 2:09 PM EST documented in this encounter Patient Instructions Patient InstructionsSShon helm PA - 06/08/2021 4:00 PM EDT Follow up 6 months Continue HCQ Follow up 6-12 months documented in this encounter Progress Notes Shon Cabrera PA - 06/08/2021 4:00 PM EDT Rheumatology Outpatient Note Chart review conducted prior to the visit includes review of PMHx, medications, allergies, and prioroffice notes. The most pertinent findings are listed below. The Patient History Form was reviewed with the patient, which included review of ROS, social hx, pmhx, famhx, current and prior medications, allergies, IZs, and ADLs. The form is scanned into the patient's chart. History of Present Illness: Monique Zamora is a 45 y.o. female who presents today for evaluation of RA. Problem List 1. Seropositive RA (RF and CCP) -Diagnosed with seropositive RA in 2006. Was following with a children's service worker at [facility]. Her RA control before was good on HCQ, MTX, and enbrel. She had very few flares on this combo. Prior xrays per patient showed no erosions. Unfortunately also got on this combination (her OCP was recalled b/c it was packaged improperly) and her prior children's service worker suggested aborting the . The patient opted not to do that and had a healthy baby boy. She had a placental abruptionand emergency . RX: - MTX - lack of efficacy - LEF - chronic diarrhea - Humira - 2ndary failure - Enbrel - 2ndary failure - RTX (1g every 4 months) - not covered by new insurance ?? 2. Diverticulitis ?? 3 Pneumatosis intestinalis - ?medication related perforation Right hemicolectomy January 2014, ileostomy, reversal July 2014. She now has chronic diarrhea. Within 15 minutes of eating she needs to go to the bathroom ?? 4. PTSD, depression and anxiety ?? 5. Fibromyalgia ?? 6. pulmonary embolism x 2 thought to be secondary to inflammatory state +OCP (See Dr. Russelljs note) 03/08/21: Per Dr. Knott: Assessment and Plan: Monique Zamora is a 45 y.o. female with seropositive RA not currently on DMARD therapy, PE X2, diverticulitis, and fibromyalgia who is following up on RA. In October we decided to start Orencia which was approved but with a high copay; Monique has not yet applied for financial assistance through the pharmaceutical [employer] and she has decided not to pursue this. Her medical history poses challenges with RA treatment. Due to history of diverticulitis and PE, DANITZA (-) and IL 6 (-) are contraindicated. Monique experienced secondary failures with TNF (-) (Enbrel, Humira). Rituxan worked well but was stopped due to insurance coverage issues. Monique wishes to avoid steroids because of significant emotional lability and psychosis from them. She is now on a ketogenic diet which worked well for her RA in the past. We discussed that a combination of DMARD therapy plus diet changes may be the best treatment for her, and she is willing to re try HCQ. ?? # Seropositive RA - active - Restart HCQ 200mg BID - this alone is unlikely to control her RA but is better than no DMARD therapy. - Next steps are to try reintroducing MTX or SSZ - cost is a barrier for Monique so triple therapy may be most reasonable - Tramadol for pain control - 50mg BID PRN ?? # Financial barrier to care - limits options for RA treatment - patient decided not to pursue financial assistance for orencia Interval History: Patient presents today for follow-up of rheumatoid arthritis she continues on hydroxychloroquine. She notices every time she loses weight she has decreased arthralgias. She is now re dedicated to losing weight as she is not significantly helpful. She reports frequent and flat fractions with a history of bladder infections and per the patient continuing infection she has a history of kidney stones butshe also gets upper respiratory tract infections. She has significant difficulty with steroids and gets steroid-induced psychosis so attempts to avoid this unless absolutely necessary. She is complaining of current pain in her hands hips and knees she utilizes Tylenol, ibuprofen, and ice to help control her arthralgias. ?? Review of Systems Constitutional: Negative for anorexia, diaphoresis, absenteeism and malaise/fatigue. Respiratory: Negative for cough, shortness of breath, hemoptysis, orthopnea and pleuritic pain. Gastrointestinal: Negative for GERD, nausea, steatorrhea and trouble swallowing. HENT: Negative. Musculoskeletal: Positive for joint pain, stiffness and joint swelling. Negative for myalgias and fracture. Endocrine: Negative for polydipsia, polyphagia, polyuria and Cushingoid appearance. Skin: Negative for erythema. Allergies Allergies Allergen Reactions ??? Latex, Natural Rubber Other reaction(s): Latex, Natural Rubber ??? Sulfa (Sulfonamide Antibiotics) Anaphylaxis Other reaction(s): Wheezing ??? Tape, Permeable Adhesive Medications Current Outpatient Medications on File Prior to Visit Medication Sig Dispense Refill ??? hydrOXYchloroQUINE (Plaquenil) 200 mg Tablet Take 1 tablet by mouth 2 times daily. 180 tablet 3 ??? traMADoL (Ultram) 50 mg Tablet Take 1 tablet by mouth 2 times daily as needed for Pain. 60 tablet 0 ??? omeprazole (PriLOSEC) 20 mg Capsule, Delayed Release(E.C.) Take 1 capsule by mouth daily. 30 capsule 11 ??? ibuprofen (Advil;Motrin) 800 mg Tablet Take 800 mg by mouth every 6 hours as needed for Pain. Indications: rheumatoid arthritis ??? brexpiprazole 0.5 mg Tablet Take by mouth daily. ??? MULTIVITAMIN/IRON/FOLIC ACID (MULTI-VIRAL ORAL) Take by mouth daily. No current facility-administered medications on file prior to visit. PMHX Patient Active Problem List Diagnosis Code ??? Rheumatoid arthritis(714.0) M06.9 ??? Anxiety F41.9 ??? Depression F32.9 ??? AMA (advanced maternal age) multigravida 35+ O09.529 ??? Obesity E66.9 ??? Pneumatosis coli K63.89 ??? Pulmonary embolism I26.99 SurgHX Past Surgical History: Procedure Laterality Date ??? SECTION 2001 ??? SECTION 2003 ??? SECTION 2011 ??? PRO COLONOSCOPY, DIAGNOSTIC 06/07/2014 COLONOSCOPY, DIAGNOSTIC performed by Beni Hernandez MD at [facility] ENDOSCOPY ??? PRO EXPLORATORY OF ABDOMEN 01/28/2014 @EXPLORATORY LAPAROTOMY, WITH/WITHOUT BIOPSY(S) performed by Mele Alexander MD at [facility] MAIN OR ? ? PRO REMVL COLON & TERM ILEUM W/ILEOCOLOSTOMY N/A 07/20/2014 @COLECTOMY, PARTIAL, WITH REMOVAL TERMINAL ILEUM, WITH ILEOCOLOSTOMY performed by Mele Alexander MD at [facility] MAIN OR ??? PRO UNLISTED PROCEDURE, SMALL INTESTINE 01/28/2014 HEMICOLECTOMY, WITH ILEOSTOMY performed by Mele Alexander MD at [facility] MAIN OR Physical Examination: BP 143/89 Pulse 77 Temp 37.2 ??C (99 ??F) (Temporal) Wt 99.8 kg (220 lb) SpO2 100% BMI 41.59 kg/m?? Musculoskeletal: Puffy appearance to the hands with diffuse swelling across the dorsum of the hand and PIPs No other peripheral synovitis erythema warmth noted Physical Exam Constitutional: General: She is not in acute distress. Appearance: She is not ill-appearing, toxic-appearing or diaphoretic. HENT: Head: Normocephalic and atraumatic. Right Ear: External ear normal. Left Ear: External ear normal. Nose: Nose normal. Eyes: General: No scleral icterus. Right eye: No discharge. Left eye: No discharge. Conjunctiva/sclera: Conjunctivae normal. Cardiovascular: Rate and Rhythm: Regular rhythm. Heart sounds: Normal heart sounds. No friction rub. No gallop. Pulmonary: Effort: Pulmonary effort is normal. No respiratory distress. Breath sounds: Normal breath sounds. No stridor. No wheezing, rhonchi or rales. Chest: Chest wall: No tenderness. Abdominal: Palpations: Abdomen is soft. Tenderness: There is no guarding or rebound. Musculoskeletal: General: Swelling present. No tenderness, deformity or signs of injury. Right lower leg: No edema. Left lower leg: No edema. Skin: General: Skin is warm and dry. Coloration: Skin is not jaundiced or pale. Findings: No bruising, erythema, lesion or rash. Neurological: Mental Status: She is alert and oriented to person, place, and time. Psychiatric: Mood and Affect: Mood normal. Behavior: Behavior normal. Thought Content: Thought content normal. Judgment: Judgment normal. Impression/Recommendations : Monique Zamora is a 45 y.o. female who presents today with seropositive rheumatoid arthritis patient on hydroxychloroquine without complication patient with complaints of recurrent infections unable to tolerate prednisone due to prednisone induced psychosis. After review of her options she elected to continue hydroxychloroquine as previous further immunosuppression is problematic given how frequently she gets infections. She will continue with as needed ibuprofen and Tylenol and given the appearance of her hands, puffy, will empirically try her on colchicine to see if she improves side effects reviewed expectations discussed patient in agreement we will otherwise see her again in follow-up in 6 to 12 months sooner if desired or indicated patient in agreement with this plan. documented in this encounter Plan of Treatment Not on filedocumented as of this encounter Visit Diagnoses Diagnosis Seropositive rheumatoid arthritis - Prim yaneth Rheumatoid arthritis Seropositive rheumatoid arthritis of myles d [facility] current use of non-steroidal a nti-inflammatories (NSAID) Encounter for long-term (current) use of non-steroidal anti-inflammatories Fibromyalgia Mylagia and myositis, unspecified Obesity, unspecified classification, uns pecified obesity type, unspecified whether serious comorbidity present documented in this encounter Care Teams Brand Inspector Relationship Specialty Start Date End Date Rosa Elena Conway APRN PCP - General Internal Medicine 11/21/[address] [place] [address] documented as of this encounter
--- OUTSIDE RECORDS SUMMARY | 2022-08-04 16:23 | XMS_ITS | Encounter Summary ---
:1975 Author Organization [facility] [place] [address] Care Team Providers Name Role Phone Derrick Johnson MD Primary Care Provider [phone] Reason for Visit Reason Comments GI Problem Consultation (Routine) - Closed Specialty Diagnoses / Procedures Referred By Contact Refer red To Contact Gastroenterology Diagnoses Rheumatoid arthritis of multiple sites without organ or system involvement with positive rheumatoid factor Chronic diarrhea Rebeca Valerio, [facility] DO [facility] [place] [phone] Fax: Referral ID Status Reason Start Date Expiration Date Visits V isits Requested Authorized [id number] Closed Consult, 11/23/2016 11/23/2017 1 1 Test & Treat Encounter Details Date Type Department Care Team Description 01/24/2017 Office Visit Gastroenterology at [facility] O'Cici, Tracia, Functional diarrhea [facility] [place] [address] [facility] MEDICAL [phone] [facility] [address] Social History Tobacco Use Types Packs/Day Years Used Date Smoking Tobacco: Every Day Cigarettes Smokeless Tobacco: Never Comments: Quit in 2008 Alcohol Use Standard Drinks/Week Comments No 0 (1 standard drink = 0.6 oz pure alcoho l) Sex Assigned at Date Recorded Not on file documented as of this encounter Last Filed Vital Signs Vital Sign Reading Time Taken Comments Blood Pressure 126/74 01/24/2017 9:07 AM EDT Pulse 86 01/24/2017 9:07 AM EDT Temperature - - Respiratory Rate - - Oxygen Saturation - - Inhaled Oxygen Concentration - - Weight 86.6 kg (191 lb) 01/24/2017 9:07 AM EDT Height 155 cm (5' 1.02) 01/24/2017 9:07 AM EDT Body Mass Index 36.06 01/24/2017 9:07 AM EDT documented in this encounter Progress Notes Gage Ramos RN - 01/24/2017 9:00 AM EDT Section of Gastroenterology and Hepatology [address] [place] [address] .Monique Zamora : 1975 Patient is here for further evaluation of gastrointestinal symptoms at the request of Rebeca Valerio. HPI: Pt is here for chronic diarrhea. Hx of pneumatosis intestinalis. Hemicolectomy with ileostomy. Reversal in 2013. Hx of c diff. Several tx. Per pt last cdiff test was negative. This was . Pt notes she knows the difference between cdiff diarrhea and her chronic diarrhea. Eating is the trigger. 10-15 minutes post-prandially has cramps and diarrhea. Has to avoid certain foods as they make sx worse. When sx at their worse she is on brat diet. Or will not eat. Has had fecal incontinent episodes. Having 3 or more stools per day. Tried imodium with no relief. No blood in stool. Mucous in stools. No sx during the night. Sometimes stool/flatus at anus but has difficulty evacuating. At times does not feel empty. At timesfood in stool. Hx of anal fissures and hemorrhoids. Daily florastor. 2013 colonoscopy: The perianal and digital rectal examinations were ? normal. ? Moderate amount of thick mucous in transverse colon ? impaired complete visualization of the mucosal ? surface. Moderate colitis (?diversion colitis) noted ? throughtout colon but findings more prominent in ? transverse and descending segments. Mucosal biopsies ? obtained at 40 cm and 20 cm from anal verge. ? A sessile polyp was found in the mid transverse ? colon. The polyp was 3 mm in size. The polyp was ? removed with a cold biopsy forceps. Resection and ? retrieval were complete. Verification of patient ? identification for the specimen was done. Estimated ? blood loss was minimal. ? The exam was otherwise without abnormality. ? Impression: ?- One 3 mm polyp in the mid ? transverse colon. Resected and ? retrieved. ? - The examination was otherwise ? normal. ? - Mild ? diversion colitis noted in ? more proximal portion of residual ? colon Recommendation: ?- Discharge patient to home. With dietary changes and exercising, pt is losing weight. Has lost 30 pounds since October. No chronic nsaids. No food allergies. No reflux, dysphagia, odynophagia, n/v, chest pain. Bloating. ? Social History Social History ??? Marital status: Spouse name: N/A ??? Number of children: N/A ??? Years of education: N/A Occupational History ??? Not on file. Social History Main Topics ??? Smoking status: Current Every Day Smoker Types: Cigarettes ??? Smokeless tobacco: Never Used Comment: Quit in 2008 ??? Alcohol use No ??? Drug use: No ??? Sexual activity: Yes Partners: Male Other Topics Concern ??? Tobacco In Home No Social History Narrative Medical History: RA, ptsd, anxiety, hx of PEs, fibromyalgia Surgical History: Hemicolectomy with ileostomy; reversal of ileostomy; csection x 3; cholecystectomy Family History: no gi etiologies Allergies Allergen Reactions ??? Latex, Natural Rubber Other reaction(s): Latex, Natural Rubber ??? Sulfa (Sulfonamide Antibiotics) Anaphylaxis Other reaction(s): Wheezing ??? Tape, Permeable Adhesive Current Outpatient Prescriptions: ??? traMADol (ULTRAM) 50 mg Tablet, Take 1-2 tablets by mouth every 6 hours as needed for Pain., Disp: 240 tablet, Rfl: 3 ??? CHOLECALCIFEROL, VITAMIN D3, (VITAMIN D3 ORAL), Take 400 Units by mouth., Disp: , Rfl: ??? apixaban (ELIQUIS) 5 mg Tablet, 2.5 mg 2 times daily., Disp: , Rfl: ??? RITUXIMAB (RITUXAN IV), , Disp: , Rfl: ??? ALPRAZolam (XANAX) 1 mg Tablet, Take 1 mg by mouth 2 times daily. Take 1 mg by mouth 2 times daily, Disp: , Rfl: ??? ferrous sulfate 325 mg (65 mg iron) Tablet, Take 325 mg by mouth daily (with breakfast)., Disp: , Rfl: ??? SUMAtriptan (IMITREX) 50 mg Tablet, , Disp: , Rfl: ??? acidophilus-pectin, citrus 100 million cell-10 mg Capsule, Take by mouth., Disp: , Rfl: ??? QUEtiapine (SEROQUEL) 100 mg Tablet, Take 100 mg by mouth. Takes 100 mg a.a. And 300 mg night, Disp: , Rfl: ??? acetaminophen (TYLENOL) 500 mg Tablet, Take 1,000 mg by mouth every 6 hours as needed for Pain.,Disp: , Rfl: ??? MULTIVITAMIN/IRON/FOLIC ACID (MULTI-VIRAL ORAL), Take by mouth daily., Disp: , Rfl: ??? diclofenac 1 % Gel, Apply 2 g topically 4 times daily. (Patient not taking: Reported on 07/18/2016), Disp: 1 Tube, Rfl: 3 Review of Systems - Negative except General: Cardiac: Resp: GI: see above : MS: Neuro: Skin: Psyche: Sleep: Endo: Impression: 1. Chronic diarrhea: questran 1 packet qd. Can increase if needed; Bentyl 10- 20mg qd to qid. 2. Bloating: low fodmap diet; kefir; may need to consider hbt. 3. Pelvic floor dysfunction: foot stool or squatty potty; relaxation 4. Gif in 6-8 weeks I spent a total of 54 minutes face to face with this patient; 39 minutes were spent counseling the patient in the medical problems described above. Sincerely, Gage Ramos NP Section of Gastroenterology and Hepatology documented in this encounter Plan of Treatment Not on filedocumented as of this encounter Visit Diagnoses Diagnosis Functional diarrhea documented in this encounter Care Teams Stores Naval Relationship Specialty Start Date End Date Derrick Johnson MD PCP - General General Internal Medicine 12/27/15 [address] [place] [address] documented as of this encounter
--- OUTSIDE RECORDS SUMMARY | 2022-08-04 16:23 | XMS_ITS | Encounter Summary ---
:1975 Author Organization [facility] [place] [address] Care Team Providers Name Role Phone Derrick Johnson MD Primary Care Provider [phone] Encounter Details Date Type Department Care Team Description 03/20/2017 Unscheduled Rheumatology at [facility] Iman Rheumatoid arthritis of mult iple sites without organ or system involvement with positive rheumatoid factor; Encounter One [facility] Rebeca Reeder DO Fibromyalgia [facility] [phone] RHEUMATOLOGY [phone] [place] [address] Social History Tobacco Use Types Packs/Day Years Used Date Smoking Tobacco: Every Day Cigarettes Smokeless Tobacco: Never Comments: Quit in 2008 Alcohol Use Standard Drinks/Week Comments No 0 (1 standard drink = 0.6 oz pure alcoho l) Sex Assigned at Date Recorded Not on file documented as of this encounter Progress Notes Rebeca Valerio DO - 03/20/2017 11:59 PM EDT Outpatient Rheumatology Followup Problem List 1. RF+, CCP+ RA. -Diagnosed with seropositive RA in 2006. Was following with a emergency room doctor at [facility]. Her RA control before was good on HCQ, MTX, and enbrel. She had very few flares on this combo. Prior xrays per patient showed no erosions. Unfortunately also got on this combination (her OCP was recalled b/c it was packaged improperly) and her prior emergency room doctor suggested aborting the . The patient opted not to do that and had a healthy baby boy. She had a placental abruptionand emergency . Treated then with MTX, and enbrel. Then humira. Most recently Rituxan 1000 mg every 4 months. Methotrexate stopped due to lack of efficacy. 2. Pneumatosis intestinalis Right hemicolectomy January 2014, ileostomy, reversal July 2014. She now has chronic diarrhea. Within 15 minutes of eating she needs to go to the bathroom (we are avoiding actemra and xeljanz) 3. PTSD, depression and anxiety 4. Fibromyalgia 5. pulmonary embolism x 2 thought to be secondary to inflammatory state +OCP (See Dr. Russelljs note) Interim History: Monique returns today for routine followup of her RA in med infusion. She is receiving rituxan today. Her RA is OK. Her life is settling down a bit. She had no acute issues to discuss today. PMH: seropositive ra dX in 2006, PTSD, fibromyalgia, 3 c-sections, cholecystectomy, kidney stones, migraines, pneumatosis coli s/p right hemicolectomy. Social Hx: she and her are . They have 3 children, no tobacco, no etoh. Has been unable to work due to her rheumatoid arthritis and fibromyalgia. Family Hx: maternal aunt with RA, does not know her father's side, 1 brother and 2 sisters with no autoimmune disease, has 3 children Exam: Gen: comfortable, pleasant, seen in med infusion today Skin: no rash Joints: hands puffy Eyes: normal sclera Neuro: grossly intact. She has multiple tenderpoints. Assessment and Plan: 1. RF+, CCP+ RA 2. PTSD, depression and anxiety 3. Pulmonary embolism x 2 4. Hx of c diff Monique will continue with every 4 month Rituxan infusions. No labs needed today. I will see her back in 4 months at next infusion documented in this encounter Plan of Treatment Not on filedocumented as of this encounter Visit Diagnoses Diagnosis Rheumatoid arthritis of multiple sites w ithout organ or system involvement with positive rheumatoid factor Fibromyalgia Mylagia and myositis, unspecified documented in this encounter Care Teams Research Attorney Relationship Specialty Start Date End Date Derrick Johnson MD PCP - General General Internal Medicine 12/27/[address] [place] [address] documented as of this encounter
--- OUTSIDE RECORDS SUMMARY | 2022-08-04 16:23 | XMS_ITS | Encounter Summary ---
:1975 Author Organization [facility] [place] [address] Care Team Providers Name Role Phone Derrick Johnson MD Primary Care Provider [phone] Reason for Referral High Dollar Medication (Routine) - Closed Specialty Diagnoses / Procedures Referred By Contact Refer red To Contact Med Infusion Diagnoses Rheumatoid arthritis involving multiple sites with positive rheumatoid factor Rebeca Valerio [facility] Med Infusion 3d Procedures TC RITUXIMAB, 100MG, INJECTION (RITUXAN) [facility] [place] [address] [place] [address] Referral ID Status Reason Start Date Expiration Date Visits V isits Requested Authorized [id number] Closed Consult, 07/23/2017 07/23/2018 3 3 Test & Treat Encounter Details Date Type Department Care Team Description 03/11/2017 Orders Only Rheumatology at [facility] Iman Rheumatoid arthritis [facility] Rebeca Reeder DO involving multiple [facility] [place] [address] [address] [address] rheumatoid factor [phone] RHEUMATOLOGY DEP T. [place], [place] [address] Social History Tobacco Use Types Packs/Day Years Used Date Smoking Tobacco: Every Day Cigarettes Smokeless Tobacco: Never Comments: Quit in 2008 Alcohol Use Standard Drinks/Week Comments No 0 (1 standard drink = 0.6 oz pure alcoho l) Sex Assigned at Date Recorded Not on file documented as of this encounter Plan of Treatment Scheduled Referrals Name Type Priority Associated Order Schedule Diagnoses Auth Request for Outpatient Referral Routine Rheumatoid Orde red: Infusion Medication arthritis involving 0 03/11/2017 multiple sites with positive rheumatoid factor documented as of this encounter Visit Diagnoses Diagnosis Rheumatoid arthritis involving multiple sites with positive rheumatoid factor documented in this encounter Care Teams Reed Man Relationship Specialty Start Date End Date Derrick Johnson MD PCP - General General Internal Medicine 12/27/15 8 [address] [place] [address] documented as of this encounter
--- OUTSIDE RECORDS SUMMARY | 2022-08-04 16:23 | XMS_ITS | Encounter Summary ---
:1975 Author Organization [facility] [place] [address] Care Team Providers Name Role Phone Rosa Elena Conway APRN Primary Care Provider Encounter Details Date Type Department Care Team Description 03/24/2018 Office Visit Rheumatology at [facility] Iman Rhe[facility] without organ or system involvement with positive rheumatoid factor; [facility] [place] [address] CENTER [phone] R[address]PT. [place] [address] Social History Tobacco Use Types Packs/Day Years Used Date Smoking Tobacco: Every Day Cigarettes Smokeless Tobacco: Never Comments: Quit in 2008 Alcohol Use Standard Drinks/Week Comments No 0 (1 standard drink = 0.6 oz pure alcoho l) Sex Assigned at Date Recorded Not on file documented as of this encounter Progress Notes Rebeca Valerio DO - 03/24/2018 1:30 PM EDT Outpatient Rheumatology Followup Problem List 1. RF+, CCP+ RA. -Diagnosed with seropositive RA in 2006. Was following with a antitank assault gunner at [facility]. Her RA control before was good on HCQ, MTX, and enbrel. She had very few flares on this combo. Prior xrays per patient showed no erosions. Unfortunately also got on this combination (her OCP was recalled b/c it was packaged improperly) and her prior antitank assault gunner suggested aborting the . The patient opted [...] returns today for routine followup of her . She received rituxan today. Last seen in November. At last visit I started her on leflunomide in addition to Rituxan. She does feel like it is helping her arthritis however she has had worsening of her chronic diarrhea particularly in the last 2 weeks. She had testing done by her primary care provider including CBC and CMP. Interestingly her albumin is 3.2 despite eating a high-protein diet. She also had stool studies done for ova andparasites and C. difficile and these were all negative. I started her on gabapentin for poor sleep and pain from fibromyalgia. It is helping her pain that she feels off balance with it. She is taking 800 mg at bedtime. We talked about adjusting the dose. PMH: seropositive ra dX in 2006, PTSD, fibromyalgia, 3 c-sections, cholecystectomy, kidney stones, migraines, pneumatosis coli s/p right hemicolectomy. Social Hx: , They have 3 children, no tobacco, no etoh. Has been unable to work due to her rheumatoid arthritis and fibromyalgia. Family Hx: maternal aunt with RA, does not know her father's side, 1 brother and 2 sisters with no autoimmune disease, has 3 children Exam: Gen: comfortable, pleasant, accompanied by her . I saw her in medical infusion today Skin: no rash Joints: no synovitis in the hands. Eyes: normal sclera Neuro: grossly intact. She has multiple tenderpoints. Assessment and Plan: 1. RF+, CCP+ RA 2. PTSD, depression and anxiety 3. Pulmonary embolism x 2 4. Hx of c diff 5. fibromyalgia Monique will continue with every 4 month Rituxan infusions. Since she has had worsening of her chronic diarrhea I told her to stop the leflunomide. I told her it would take several months for this to come out of her system completely. I will see her back in 2 months and at that point we will reevaluate her arthritis and decide if we need to add another medication. Regarding her gabapentin, she will continue with 800 mg at bedtime. I did say she could move this upcloser to dinner if she is having problems getting up in the morning. I gave her 100 mg tablets to try in the mid to late morning. This could be titrated up as well. I will see her back in 2 months. documented in this encounter Plan of Treatment Not on filedocumented as of this encounter Visit Diagnoses Diagnosis Rheumatoid arthritis of multiple sites w [facility] organ or system involvement with positive rheumatoid factor Fibromyalgia Mylagia and myositis, unspecified documented in this encounter Care Teams Nylon Mender Relationship Specialty Start Date End Date Rosa Elena Conway APRN PCP - General Internal Medicine 11/21/[address] [place] [address] documented as of this encounter
--- OUTSIDE RECORDS SUMMARY | 2022-08-04 16:23 | XMS_ITS | Encounter Summary ---
:1975 Author Organization [facility] [place] [address] Care Team Providers Name Role Phone Derrick Johnson MD Primary Care Provider [phone] Reason for Referral High Dollar Medication (Routine) - Duplicate Referral Specialty Diagnoses / Procedures Referred By Contact Refer red To Contact Med Infusion Diagnoses Rheumatoid arthritis involving multiple sites with positive rheumatoid factor Rebeca Valerio [facility] Med Infusion 3d DO [facility] [place] [address] [place] [address] Referral ID Status Reason Start Expiration Visits Visits Date Date Requested Authorized [id number] Duplicate Consult, 07/17/2017 07/17/2018 1 1 Referral Test & Treat Encounter Details Date Type Department Care Team Description 07/17/2017 Orders Only Rheumatology at [facility] Iman Rheumatoid arthritis [facility] Rebeca Reeder DO involving multiple [facility] [place] [place] [address] [address] [address] rheumatoid factor [phone] RHEUMAT[address] DEP T. [place], [place] [address] Social History Tobacco Use Types [...] Rheumatoid Orde red: Infusion Medication arthritis involving 1 09/16/2016 multiple sites with positive rheumatoid factor documented as of this encounter Visit Diagnoses Diagnosis Rheumatoid arthritis involving multiple sites with positive rheumatoid factor documented in this encounter Care Teams Manager Car Relationship Specialty Start Date End Date Derrick Johnson MD PCP - General General Internal Medicine 12/27/15 [address] [place] [address] documented as of this encounter
--- OUTSIDE RECORDS SUMMARY | 2022-08-04 16:23 | XMS_ITS | Encounter Summary ---
:1975 Author Organization [facility] [place] [address] Care Team Providers Name Role Phone Rosa Elena Conway APRN Primary Care Provider Encounter Details Date Type Department Care Team Description 12/06/[address] [facility] [place] [address] Social History Tobacco Use Types Packs/Day [...] on filedocumented in this encounter Care Teams Rag Cutting Machine Operator Relationship Specialty Start Date End Date Rosa Elena Conway APRN PCP - General Internal Medicine 11/21/17 [address] [place], [place] [address] documented as of this encounter
--- OUTSIDE RECORDS SUMMARY | 2022-08-04 16:23 | XMS_ITS | Encounter Summary ---
:1975 Author Organization [facility] [place] [address] Care Team Providers Name Role Phone Rosa Elena Conway APRN Primary Care Provider Reason for Referral High Dollar Medication (Routine) - Specialty Diagnoses / Procedures Referred By Contact Refer red To Contact Med Infusion Diagnoses Rheumatoid arthritis involving multiple sites with positive rheumatoid factor Rebeca Valerio madhu Med Infusion 3d DO [facility] [place] [address] [place] [address] Referral ID Status Reason Start Date Expiration Date Visits V isits Requested Authorized [id number] Consult, 07/07/2018 03/13/2019 2 2 Test & Treat Encounter Details Date Type Department Care Team Description 03/13/2018 Orders Only Rheumatology at [facility] Iman Rheumatoid arthritis [facility] Rebeca Reeder DO involving multiple [facility] [place] [address] [address] rheumatoid factor [phone] RHEUMATOLOGY DEP T. [place], [place] [address] Social History Tobacco Use Types [...] Orde red: Infusion Medication arthritis involving 0 03/13/2018 multiple sites with positive rheumatoid factor documented as of this encounter Visit Diagnoses Diagnosis Rheumatoid arthritis involving multiple sites with positive rheumatoid factor documented in this encounter Care Teams Activities Director Scouting Relationship Specialty Start Date End Date Rosa Elena Conway APRN PCP - General Internal Medicine 11/21/[address] [place] [address] documented as of this encounter
--- OUTSIDE RECORDS SUMMARY | 2022-08-04 16:23 | XMS_ITS | Encounter Summary ---
:1975 Author Organization [facility] [place] [address] Care Team Providers Name Role Phone Rosa Elena Conway APRN Primary Care Provider Reason for Visit Reason Onset Date Comments Medication Refill 10/29/2016 Encounter Details Date Type Department Care Team Description 10/29/2016 Refill Rheumatology at [facility] [place] [address] Social History Tobacco Use Types Packs/Day Years Used Date Smoking Tobacco: Former Cigarettes Smokeless Tobacco: Never Comments: Quit in 2008 Alcohol Use Standard Drinks/Week Comments No 0 (1 standard drink = 0.6 oz pure alcoho l) Sex Assigned at Date Recorded Not on file documented as of this encounter Plan of Treatment Not on filedocumented as of this encounter Visit Diagnoses Not on filedocumented in this encounter Care Teams Maintenance And Operations Supervisor Relationship Specialty Start Date End Date Rosa Elena Conway APRN PCP - General Internal Medicine 11/21/17 [address] [place], [place] [address] documented as of this encounter
--- OUTSIDE RECORDS SUMMARY | 2022-08-04 16:23 | XMS_ITS | Encounter Summary ---
:1975 Author Organization [facility] [place] [address] Care Team Providers Name Role Phone Derrick Johnson MD Primary Care Provider [phone] Reason for Visit Reason Onset Date Comments Other 10/01/2016 Encounter Details Date Type Department Care Team Description 10/01/2016 Refill Rheumatology at [facility] Deja Ibanez, [place] [address] Social History Tobacco Use Types Packs/Day Years Used Date Smoking Tobacco: Former Cigarettes Smokeless Tobacco: Never Comments: Quit in 2008 Alcohol Use Standard Drinks/Week Comments No 0 (1 standard drink = 0.6 oz pure alcoho l) Sex Assigned at Date Recorded Not on file documented as of this encounter Miscellaneous Notes Telephone Encounter - Deja Ibanez RN - 10/01/2016 1:29 PM EST I spoke with Monique and she tested last Saturday for C-Diff and has not received results yet. She is not taking antibiotics currently. She will call GI for results. Monique will take Prednisone as recommended by Dr. Valerio 20-3,15-3,10-3,5-3. Monique will call Rheumatology nurse if she is not improving by Saturday. Telephone Encounter - Deja Ibanez RN - 10/01/2016 12:40 PM EST Monique calls to report that she is having a flare of her whole body and reports swelling from head to toes. States she is unable to move without assistance. Reports that she had body aches and fever over the weekend and that resolved. She thinks this causedher to flare. Is requesting Prednisone and a letter so she can miss her Social Security hearing on . RTC to Monique, she states swelling is from neck down and she has multiple joint pain. No fevers now. Taking Tramadol and Tylenol. No Prednisone currently. Reports lumps in chest that she is going to have Mammogram and Ultrasound for end of September. Reports Bladder mass and is having Ultrasound as well. Will check with Dr. Valerio about seeing Monique. documented in this encounter Plan of Treatment Not on filedocumented as of this encounter Visit Diagnoses Not on filedocumented in this encounter Care Teams Tray Setter Relationship Specialty Start Date End Date Derrick Johnson MD PCP - General General Internal Medicine 12/27/15 [address] [place] [address] documented as of this encounter
--- OUTSIDE RECORDS SUMMARY | 2022-08-04 16:23 | XMS_ITS | Encounter Summary ---
:1975 [place] [address] Care Team Providers Name Role Phone Rosa Elena Conway APRN Primary Care Provider Encounter Details Date Type Department Care Team Description 10/19/2020 Telephone Rheumatology at [facility] Edd Knott DO [facility] [place] [address] RHEUMATOLOGY [phone] [place], [place] [address] (Wo rk) Social History Tobacco Use Types Packs/Day Years Used Date Smoking Tobacco: Every Day Cigarettes 0.5 Smokeless Tobacco: Never Alcohol Use Standard Drinks/Week Comments No 0 (1 standard drink = 0.6 oz pure alcoho l) Sex Assigned at Date Recorded Not on file documented as of this encounter Miscellaneous Notes Telephone Encounter - Edd Knott DO - 10/19/2020 1:29 PM EST Called Monique to discuss labs and treatment of RA. She is still experiencing active disease, and istaking indomethacin only as needed because of its high laboy. It does not help much. We reviewed Orencia as the next option for her, and she is agreeable to this. She prefers to do an injectable rather than RTX infusions. We will change indomethacin to naproxen which should be cheaper and she can use this twice a day. Monique prefers to avoid steroids because of their effects on her mood. We will follow up in 1 month at our schedule appt. Edd Knott DO [facility] Rheumatology documented in this encounter Plan of Treatment Not on filedocumented as of this encounter Visit Diagnoses Not on filedocumented in this encounter Care Teams Sap Business Analyst Relationship Specialty Start Date End Date Rosa Elena Conway APRN PCP - General Internal Medicine 11/21/[address] [place] [address] documented as of this encounter
--- OUTSIDE RECORDS SUMMARY | 2022-08-04 16:23 | XMS_ITS | Encounter Summary ---
:1975 Author Organization [place] [place] [address] Care Team Providers Name Role Phone Rosa Elena Conway APRN Primary Care Provider Reason for Visit Reason Onset Date Comments Medication Refill 12/09/2017 Encounter Details Date Type Department Care Team Description 12/09/2017 Refill Rheumatology at [facility] Carl Gr[place], [place] [address] Social History Tobacco Use Types Packs/Day Years Used Date Smoking Tobacco: Every Day Cigarettes Smokeless Tobacco: Never Comments: Quit in 2008 Alcohol Use Standard Drinks/Week Comments No 0 (1 standard drink = 0.6 oz pure alcoho l) Sex Assigned at Date Recorded Not on file documented as of this encounter Miscellaneous Notes Telephone Encounter - Carl Grissom RN - 12/09/2017 12:52 PM EDT Prescription routed and patient updated. documented in this encounter Plan of Treatment Not on filedocumented as of this encounter Visit Diagnoses Not on filedocumented in this encounter Care Teams Assisted Living Home Director Relationship Specialty Start Date End Date Rosa Elena Conway APRN PCP - General Internal Medicine 11/21/17 [address] [place] [address] documented as of this encounter
--- OUTSIDE RECORDS SUMMARY | 2022-08-04 16:23 | XMS_ITS | Encounter Summary ---
:1975 Author Organization [facility] [place] [address] Care Team Providers Name Role Phone Derrick Johnson MD Primary Care Provider [phone] Reason for Referral Consultation (Routine) - Closed Specialty Diagnoses / Procedures Referred By Contact Refer red To Contact Gastroenterology Diagnoses Rheumatoid arthritis of multiple sites without organ or system involvement with positive rheumatoid factor Chronic diarrhea Rebeca Valerio, [facility] DO One [facility] [place] [phone] Fax: Referral ID Status Reason Start Date Expiration Date Visits V isits Requested Authorized [id number] Closed Consult, 11/23/2016 11/23/2017 1 1 Test & Treat Encounter Details Date Type Department Care Team Description 11/23/2016 Unscheduled Rheumatology at [facility] Iman Rheumatoid arthritis of mult iple sites without organ or system involvement with positive rheumatoid factor; Encounter One [facility] Rebeca Reeder DO Fibromyalgia; [facility] PTSD (post-traumatic stress disorder); [place], [place] [address]ENTER DR Chronic diarrhea [phone] RHEUMATOLOGY [phone] [place] [address] Social History Tobacco Use Types Packs/Day Years Used Date Smoking Tobacco: Former Cigarettes Smokeless Tobacco: Never Comments: Quit in 2008 Alcohol Use Standard Drinks/Week Comments No 0 (1 standard drink = 0.6 oz pure alcoho l) Sex Assigned at Date Recorded Not on file documented as of this encounter Progress Notes Rebeca Valerio, - 11/23/2016 2:57 PM EDT Outpatient Rheumatology Followup Problem List 1. RF+, CCP+ RA. -Diagnosed with seropositive RA in 2006. Was following with a personal companion at [facility]. Her RA control before was good on HCQ, MTX, and enbrel. She had very few flares on this combo. Prior xrays per patient showed no erosions. Unfortunately also got on this combination (her OCP was recalled b/c it was packaged improperly) and her prior personal companion suggested aborting the . The patient opted [...] followup of her RA in med infusion. Had rituxan today which she receives as 1000 mg every 4 months. She feels it getting close to the time of infusion. Still feels she is getting benefit from this. Still has a lot of pain. Complicated by fibromyalgia,stress makes the pain worse. Her functioning is different day to day. Some days she can't get out ofbed. Other days are good days. Her has been helping with the kids. Despite her recent c diff testing being negative she continues to have diarrhea after every meal. Nofevers. No abdominal pain. PMH: seropositive ra dX in 2006, PTSD, [...] month Rituxan infusions. No labs needed today. Continue tramadol as needed for pain. I would like GI here to see her for her chronic diarrhea. I support her pursuing SSI. Her RA has been difficult to control and is complicated by her fibromyalgia pain and the stress in her life. She is trying to work through it as best she can. I will see her back in 4 months at next infusion on 03/20 documented in this encounter Plan of Treatment Scheduled Referrals Name Type Priority Associated Order Schedule Diagnoses Referral to Outpatient Routine Rheumatoid Ordered: Gastroenterology Referral arthritis of 11/23/2016 multiple sites without organ or system involvement with positive rheumatoid facto r Chronic diarrhea documented as of this encounter Visit Diagnoses Diagnosis Rheumatoid arthritis of multiple sites w ithout organ or system involvement with positive rheumatoid factor Fibromyalgia Mylagia and myositis, unspecified PTSD (post-traumatic stress disorder) Posttraumatic stress disorder Chronic diarrhea Diarrhea documented in this encounter Care Teams Production Department Supervisor Relationship Specialty Start Date End Date Derrick Johnson MD PCP - General General Internal Medicine 12/27/15 [address] [place] [address] documented as of this encounter
--- OUTSIDE RECORDS SUMMARY | 2022-08-04 16:23 | XMS_ITS | Encounter Summary ---
:1975 Author Organization [facility] [address] Care Team Providers Name Role Phone Rosa Elena Conway Rolanda DESOUZA Primary Care Provider Encounter Details Date Type Department Care Team Description 10/06/2018 Ancillary Procedure Radiology Library at [facility] sharmin Olson MD [facility] [place] [address] [place] [address] [phone] (Wo rk) Social History Tobacco Use Types Packs/Day Years Used Date Smoking Tobacco: Every Day Cigarettes Smokeless Tobacco: Never Comments: Quit in 2008 Alcohol Use Standard Drinks/Week Comments No 0 (1 standard drink = 0.6 oz pure alcoho l) Sex Assigned at Date Recorded Not on file documented as of this encounter Plan of Treatment Not on filedocumented as of this encounter Procedures Procedure Name Priority Date/Time Associated Diagnosis Comme nts FILM LIBRARY Routine 10/06/2018 3:58 PM Results f or this STORAGE ONLY CT EST procedure ar e in SPINE the results section. documented in this encounter Results Film Library- Storage Only CT Spine (10/06/2018 3:58 PM EST) Specimen (Source) Anatomical Location Collection Method / Collectio n Time Received Time / Laterality Volume Narrative RAD - 10/06/2018 3:58 PM EST This exam is for storage only and is aut o-finalizing. Kayla Olson MD IMG FILM LIBRARY ORDERABLES Performing Organization Address City/State/ZIP Code Phon e Number [facility] [place], [place] documented in this encounter Visit Diagnoses Not on filedocumented in this encounter Care Teams Human Factors Engineer Relationship Specialty Start Date End Date Rosa Elena Conway APRN PCP - General Internal Medicine 11/21/17 [address] [place] [address] documented as of this encounter
--- OUTSIDE RECORDS SUMMARY | 2022-08-04 16:23 | XMS_ITS | Encounter Summary ---
:1975 Author Organization [facility] [place] [address] Care Team Providers Name Role Phone Rosa Elena Conway APRN Primary Care Provider Encounter Details Date Type Department Care Team Description 11/21/2017 Office Visit [place] [facility] [place] Rheumatoid arthritis [facility] Rebeca Reeder DO of multiple sites [facility] [place] [address] system involvement [phone] RHEUMATOLOGY with positive DEPT. rheumatoid factor [place] [address] Social History Tobacco Use Types Packs/Day Years Used Date Smoking Tobacco: Every Day Cigarettes Smokeless Tobacco: Never Comments: Quit in 2008 Alcohol Use Standard Drinks/Week Comments No 0 (1 standard drink = 0.6 oz pure alcoho l) Sex Assigned at Date Recorded Not on file documented as of this encounter Progress Notes Rebeca Valerio DO - 11/21/2017 2:30 PM EDT Outpatient Rheumatology Followup Problem List 1. RF+, CCP+ RA. -Diagnosed with seropositive RA in 2006. Was following with a wet process operator at [facility]. Her RA control before was good on HCQ, MTX, and enbrel. She had very few flares on this combo. Prior xrays per patient showed no erosions. Unfortunately also got on this combination (her OCP was recalled b/c it was packaged improperly) and her prior wet process operator suggested aborting the . The patient opted [...] of her . She received rituxan today. Shecontinues to have benefit from Rituxan but feels it wearing off close to the time of her next infusion. Has been having trouble sleeping. taking trazodone 100 mg nightly. Trouble falling asleep. Combo of anxiety and pain Has tried flexeril and it does not help her sleep. Has never taken gabapentin. May be took amitriptyline when she was an inpatient but is not sure. PMH: seropositive ra dX in 2006, PTSD, [...] Gen: comfortable, pleasant, accompanied by her . Skin: no rash Joints: no synovitis in the hands. She is very tender to palpation Eyes: normal sclera Neuro: grossly intact. She has multiple tenderpoints. Assessment and Plan: 1. RF+, CCP+ RA 2. PTSD, depression and anxiety 3. Pulmonary embolism x 2 4. Hx of c diff fibromyalgia Monique will continue with every 4 month Rituxan infusions. We decided to add leflunomide 20 mg daily. We discussed risks and benefits including avoidance of . Will try Gabapentin 300-600 mg nightly. Can titrate up to 1200 mg if needed She needs Labs and hand/foot xrays-we will do these at [facility]. Next infusion is scheduled for March 24 infusion. I will try to see her at that time. documented in this encounter Plan of Treatment Not on filedocumented as of this encounter Visit Diagnoses Diagnosis Rheumatoid arthritis of multiple sites w [facility] organ or system involvement with positive rheumatoid factor documented in this encounter Care Teams Right Of Way Supervisor Relationship Specialty Start Date End Date Rosa Elena Conway APRN PCP - General Internal Medicine 11/21/[address] [place] [address] documented as of this encounter
--- OUTSIDE RECORDS SUMMARY | 2022-08-04 16:23 | XMS_ITS | Encounter Summary ---
:1975 Author Organization [facility] [place] [address] Care Team Providers Name Role Phone Ramila Conwayyce Rolanda DESOUZA Primary Care Provider Reason for Visit Reason Onset Date Comments Questions 03/24/2018 Encounter Details Date Type Department Care Team Description 03/24/2018 Telephone Rheumatology at [facility] [address] Social History Tobacco Use Types Packs/Day Years Used Date Smoking Tobacco: Every Day Cigarettes Smokeless Tobacco: Never Comments: Quit in 2008 Alcohol Use Standard Drinks/Week Comments No 0 (1 standard drink = 0.6 oz pure alcoho l) Sex Assigned at Date Recorded Not on file documented as of this encounter Miscellaneous Notes Telephone Encounter - Carl Grissom RN - 03/26/2018 2:05 PM EDT Call placed to [facility] Internal medicine, no answer. No return call from previous message left. Telephone Encounter - Carl Grissom RN - 03/24/2018 4:13 PM EDT Images from the original note were not included. Rebeca Valerio, DO Carl Grissom RN ? Caller: Unspecified (Today, ??3:56 PM) ? HI Carl, She is taking 800 mg at night. The 1200 mg that is prescribed makes her too off balance. I prescribed 100 mg tablets so that she can try a low dose during the day to see if this helps with her pain. Left message with [facility] Medicine with call back number provided. Telephone Encounter - Carl Grissom RN - 03/24/2018 3:57 PM EDT Cain from [facility] Medicine calls for clarification of Gabapentin. Note indicates 800 mg, order indicates 3x 400 mg. documented in this encounter Plan of Treatment Not on filedocumented as of this encounter Visit Diagnoses Not on filedocumented in this encounter Care Teams Plasticator Relationship Specialty Start Date End Date Rosa Elena Conway APRN PCP - General Internal Medicine 11/21/[address] [place] [address] documented as of this encounter
--- OUTSIDE RECORDS SUMMARY | 2022-08-04 16:23 | XMS_ITS | Encounter Summary ---
:1975 Author Organization [facility] [place] [address] Care Team Providers Name Role Phone Rosa Elena Conway APRN Primary Care Provider Encounter Details Date Type Department Care Team Description 11/22/2017 Hospital Encounter Radiology Library at Nikolas Valerio [facility] M, DO [facility] [place] [address] [place] [address] RHEUMATOLOGY DEPT. [phone] [place], [place] [address] (Wo rk) Social History Tobacco Use Types Packs/Day Years Used Date Smoking Tobacco: Every Day Cigarettes Smokeless Tobacco: Never Comments: Quit in 2008 Alcohol Use Standard Drinks/Week Comments No 0 (1 standard drink = 0.6 oz pure alcoho l) Sex Assigned at Date Recorded Not on file documented as of this encounter Medications at Time of Discharge Medication Sig Dispensed Refills Start Date End Date Lactobacillus Take by mouth. 0 06/23/2015 Acidophilus 100 million cell Capsule SUMAtriptan (Imitrex) 50 Take by mouth. 0 017 mg Tablet MULTIVITAMIN/IRON/FOLIC Take by mouth 0 ACID (MULTI-VIRAL ORAL) daily. folic acid (Folvite) 1 Take by mouth. 0 7 12/22/2021 mg Tablet riTUXimab (Rituxan) 10 Inject into the 0 06/23/20 15 12/22/2021 mg/mL Concentrate vein. leflunomide (ARAVA) 20 Take 1 tablet by 90 tablet 3 018 12/29/2018 mg Tablet mouth daily. gabapentin (NEURONTIN) Take 1-2 capsules 180 capsule 3 11/2112/09/2017 300 mg Capsule by mouth nightly. apixaban (ELIQUIS) 5 mg 2.5 mg 2 times 0 11/25/19 16 12/29/2018 Tablet daily. RITUXIMAB (RITUXAN IV) 0 06/23/2015 SUMAtriptan (IMITREX) 50 0 09/14/2015 12/29/2018 mg Tablet documented as of this encounter Plan of Treatment Not on filedocumented as of this encounter Procedures Procedure Name Priority Date/Time Associated Diagnosis Comme nts FILM LIBRARY Routine 11/22/2017 12:05 AM Results for this STORAGE ONLY DX EDT procedure ar e in HAND the results section. documented in this encounter Results Film Library- Storage Only DX Hand (11/22/2017 12:05 AM EDT) Specimen (Source) Anatomical Location Collection Method / Collectio n Time Received Time / Laterality Volume Narrative [facility] - 11/24/2017 12:59 PM EDT This exam is for storage only and is aut o-finalizing. Rebeca Valerio DO IMRyan FILM LIBRARY ORDERABLES Performing Organization Address City/State/ZIP Code Phon e Number [place], [place] documented in this encounter Visit Diagnoses Not on filedocumented in this encounter Care Teams Product Introduction Manager Relationship Specialty Start Date End Date Rosa Elena Conway APRN PCP - General Internal Medicine 11/21/[address] [place] [address] documented as of this encounter
--- OUTSIDE RECORDS SUMMARY | 2022-08-04 16:23 | XMS_ITS | Encounter Summary ---
:1975 Author Organization [facility] [place] [address] Care Team Providers Name Role Phone Rosa Elena Conway APRN Primary Care Provider Reason for Visit Reason Comments IV Medication High Dollar Medication (Routine) - Closed Specialty Diagnoses / Procedures Referred By Contact Refer red To Contact Med Infusion Diagnoses Rheumatoid arthritis involving multiple sites with positive rheumatoid factor Rebeca Valerio [facility] Med Infusion 3d Procedures TC RITUXIMAB, 100MG, INJECTION (RITUXAN) DO [facility] [place] [address] [place] [address] Referral ID Status Reason Start Date Expiration Date Visits V isits Requested Authorized [id number] Closed Consult, 07/23/2017 07/23/2018 3 3 Test & Treat Encounter Details Date Type Department Care Team Description 11/21/2017 Hospital En[place] [facility] [place] [facility] involving [place] [address] rheumatoid factor [phone] Social History Tobacco Use Types Packs/Day Years Used Date Smoking Tobacco: Every Day Cigarettes Smokeless Tobacco: Never Comments: Quit in 2008 Alcohol Use Standard Drinks/Week Comments No 0 (1 standard drink = 0.6 oz pure alcoho l) Sex Assigned at Date Recorded Not on file documented as of this encounter Last Filed Vital Signs Vital Sign Reading Time Taken Comments Blood Pressure - - Pulse 75 11/21/2017 9:25 AM EDT Temperature 36.4 ??C (97.5 ??F) 11/21/2017 9:25 AM EDT Respiratory Rate 20 11/21/2017 9:25 AM EDT Oxygen Saturation 99% 11/21/2017 9:25 AM EDT Inhaled Oxygen Concentration - - Weight - - Height - - Body Mass Index - - documented in this encounter Medications at Time of Discharge [...] mg Tablet documented as of this encounter Progress Notes Teresa Boston RN - 11/21/2017 9:32 AM EDT Patient Name: Monique Zamora Patient Age: 42 y.o. Birthdate: 1975 Admit date: 11/21/2017 Attending Physician: No att. providers found INFUSION THERAPY ADMINISTRATION NOTES DIAGNOSIS: Rheumatoid Arthritis REASON FOR VISIT: Rituxan infusion SUBJECTIVE: Offers no complaints. OBJECTIVE: Last dose received on 07/24/2017 VITALS: Pulse 75 Temp 36.4 ??C (97.5 ??F) (Oral) Resp 20 SpO2 99% IF PAIN >5, INTERVENTION AND EFFECTIVENESS: na IV ACCESS: Peripheral IV Line - Single Lumen 11/21/17 0930 median cubital vein (antecubital fossa), right 22 gauge (Active) HYDRATION: N/A ANTIEMETICS/PREMEDS, Benadryl 25 mg PO Patient identification and orders checked against actual dose given at bedside by Isabell Boston RN TREATMENT Rituxan 1000 mg IV Administration times: See NOV 08 dosing schedule used. REACTIONS None. ASSESSMENT: Tolerated infusion well. PLAN: Return to clinic 03/24/2018. documented in this encounter Plan of Treatment Not on filedocumented as of this encounter Visit Diagnoses Diagnosis Rheumatoid arthritis involving multiple sites with positive rheumatoid factor documented in this encounter Administered Medications Inactive Administered Medications - up to 3 most recent administrations Medication Order NOV Action Action Date Dose Rate Site diphenhydrAMINE (BENADRYL) capsule Given 11/21/2017 9:27 AM EDT 25 mg 25 mg 25 mg, Oral, ONCE, 1 dose, On Aditi 11/21/17 at 0930, FIRST INFUSION Upon arrival prior to rituximab, Outpatient Transfusion, Routine riTUXimab (RITUXAN) 1,000 mg in sodium New Bag 11/21/2017 9:55 AM EDT 1,000 mg chloride 0.9% 500 mL infusion 1,000 mg, Intravenous, ONCE, 1 dose, On Aditi 11/21/17 at 0930, FIRST INFUSION Administer intravenously at an initial rate of 50 mg/hour. If no hypersensitivity or infusion-related events occur, increase infusion rate in 50 mg/hour increments every 30 minutes, to a maximum of 400 mg/hour. If hypersensitivity or an infusion-related event develops, the infusion should be temporarily slowed or interrupted. Upon improvement of the patient's symptoms, the infusion can be continued at one-half the previous rate., Outpatient Transfusion, Indication: see associated diagnosis documented in this encounter Care Teams Auto Repair Technician Relationship Specialty Start Date End Date Rosa Elena Conway APRN PCP - General Internal Medicine 11/21/[address] [place] [address] documented as of this encounter
--- OUTSIDE RECORDS SUMMARY | 2022-08-04 16:23 | XMS_ITS | Encounter Summary ---
:1975 Author Organization [facility] [place] [address] Care Team Providers Name Role Phone Rosa Elena Conway APRN Primary Care Provider Reason for Visit Reason Onset Date Comments Medication Refill 05/23/2018 Encounter Details Date Type Department Care Team Description 05/23/2018 Refill Rheumatology at [facility] Rebeca Valerio [facility] [place] [address] RHEUMATOLOGY DEPT. [phone] [place], [place] [address] (Wo rk) Social History Tobacco [...] on filedocumented in this encounter Care Teams Electric Range Assembler Relationship Specialty Start Date End Date Rosa Elena Conway APRN PCP - General Internal Medicine 11/21/17 [address] [place], [place] [address] documented as of this encounter
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
--- OUTSIDE RECORDS SUMMARY | 2022-08-04 16:23 | XMS_ITS | Encounter Summary ---
:1975 Author Organization [facility] [place] [address] Care Team Providers Name Role Phone ManRosa Elena APRN Primary Care Provider Encounter Details Date Type Department Care Team Description 09/30/2020 Telephone Rheumatology at [facility] [place] Hema Cagle, [place] [address] Social History Tobacco Use Types Packs/Day Years Used Date Smoking Tobacco: Every Day Cigarettes 0.5 Smokeless Tobacco: Never Alcohol Use Standard Drinks/Week Comments No 0 (1 standard drink = 0.6 oz pure alcoho l) Sex Assigned at Date Recorded Not on file documented as of this encounter Miscellaneous Notes Telephone Encounter - Hema Cagle RN - 09/30/2020 8:47 AM EST Edd Knott, DO sent to Hema Cagle, MICHELLE ?? Helio Garrido, I'm working with our pharmacist to get Rituxan infusions for Monique, but we will need her to have labs done before I can order the infusion. Can you remind her that the labs are ordered to be done at , but that if she wants to have them elsewhere we can fax the orders. Thank you Travis RTC to Monique and let her know the above information from Dr. Knott. She states that she would liketo have her lab request sent to [facility]. She also states that after talking withher , that she does not want to do the Rituxan, she would like to try a biologic. I [facility]ed [facility]request to [facility]. documented in this encounter Plan of Treatment Not on filedocumented as of this encounter Visit Diagnoses Not on filedocumented in this encounter Care Teams Direct Entry Midwife Relationship Specialty Start Date End Date Rosa Elena Conway APRN PCP - General Internal Medicine 11/21/[address] [place] [address] documented as of this encounter
--- OUTSIDE RECORDS SUMMARY | 2022-08-04 16:23 | XMS_ITS | Encounter Summary ---
:1975 Author Organization [facility] [place] [address] Care Team Providers Name Role Phone Derrick Johnson MD Primary Care Provider [phone] Reason for Visit High Dollar Medication (Routine) - Closed Specialty Diagnoses / Procedures Referred By Contact Refer red To Contact Med Infusion Diagnoses Rheumatoid arthritis involving multiple sites with positive rheumatoid factor Rebeca Valerio, [facility] Med Infusion 3d Procedures TC RITUXIMAB, 100MG, INJECTION (RITUXAN) DO [facility] [place] [address] [place] [address] Referral ID Status Reason Start Date Expiration Date Visits V isits Requested Authorized [id number] Closed Consult, 07/23/2017 07/23/2018 3 3 Test & Treat Encounter Details Date Type Department Care Team Description 07/24/2017 Hospital Encounter Med Infusion [place] [facility] [place] Rheumatoid arthritis [facility] involving multiple [place] [address] rheumatoid factor [phone] Social History Tobacco Use Types Packs/Day Years Used Date Smoking Tobacco: Every Day Cigarettes Smokeless Tobacco: Never Comments: Quit in 2008 Alcohol Use Standard Drinks/Week Comments No 0 (1 standard drink = 0.6 oz pure alcoho l) Sex Assigned at Date Recorded Not on file documented as of this encounter Last Filed Vital Signs Vital Sign Reading Time Taken Comments Blood Pressure 119/75 07/24/2017 9:34 AM EST Pulse 88 07/24/2017 9:34 AM EST Temperature 36.9 ??C (98.4 ??F) 07/24/2017 9:34 AM EST Respiratory Rate - - Oxygen Saturation 99% 07/24/2017 9:34 AM EST Inhaled Oxygen Concentration - - Weight - - Height - - Body Mass Index - - documented in this encounter Medications at Time of Discharge Medication Sig Dispensed Refills Start Date End Date Lactobacillus Acidophilus Take by mouth. 0 2014 100 million cell Capsule SUMAtriptan (Imitrex) 50 Take by mouth. 0 017 mg Tablet MULTIVITAMIN/IRON/FOLIC Take by mouth 0 ACID (MULTI-VIRAL ORAL) daily. folic acid (Folvite) 1 mg Take by mouth. 0 201612/22/2021 Tablet riTUXimab (Rituxan) 10 Inject into the 0 06/23/20 15 12/22/2021 mg/mL Concentrate vein. apixaban (ELIQUIS) 5 mg 2.5 mg 2 times 0 11/25/19 16 12/29/2018 Tablet daily. RITUXIMAB (RITUXAN IV) 0 06/23/2015 SUMAtriptan (IMITREX) 50 0 09/14/2015 12/29/2018 mg Tablet documented as of this encounter Progress Notes Ace Chadwick RN - 07/24/2017 9:45 AM EST Patient Name: Monique Zamora Patient Age: 42 y.o. Birthdate: 1975 Admit date: 07/24/2017 Attending Physician: No att. providers found INFUSION THERAPY ADMINISTRATION NOTES DIAGNOSIS: The encounter diagnosis was Rheumatoid arthritis involving multiple sites with positive rheumatoid factor. REASON FOR VISIT: Rituxan Infusion SUBJECTIVE: Offers no complaints. OBJECTIVE: Last dose received on 03/20/17 VITALS: BP 119/75 (Patient Position: Sitting) Pulse 88 Temp 36.9 ??C (98.4 ??F) SpO2 99% IF PAIN >5, INTERVENTION AND EFFECTIVENESS: na IV ACCESS: Peripheral IV Line - Single Lumen 07/24/17 0940 basilic vein (medial side of arm), left 24 gauge;3/4in length (Active) HYDRATION: NS @ KVO starting with vascular access, off with start of infusion ANTIEMETICS/PREMEDS, Benadryl 25 mg IV@ [id number] Patient identification and orders checked against actual dose given at bedside by Ace Chadwick RN TREATMENT Rituxan 1000 mg IV Administration times: See Nov dosing schedule used. REACTIONS None. ASSESSMENT: Tolerated infusion well. PLAN: Return to clinic on 11/21/17. documented in this encounter Plan of Treatment Not on filedocumented as of this encounter Visit Diagnoses Diagnosis Rheumatoid arthritis involving multiple sites with positive rheumatoid factor documented in this encounter Administered Medications Inactive Administered Medications - up to 3 most recent administrations Medication Order Nov Dose Rate Site diphenhydrAMINE (BENADRYL) capsule Given 07/24/2017 9:40 AM EST 25 mg 25 mg 25 mg, Oral, ONCE, 1 dose, On Sat07/24/17 at 0945, FIRST INFUSION Upon arrival prior to rituximab, Outpatient Transfusion, Routine riTUXimab (RITUXAN) 1,000 mg in sodium New Bag 07/24/2017 9:56 AM EST 1,000 mg chloride 0.9% 500 mL infusion 1,000 mg, Intravenous, ONCE, 1 dose, On Sat07/24/17 at 0945, FIRST INFUSION Administer intravenously at an initial [...] diagnosis documented in this encounter Care Teams Head Men'S Golf Coach Relationship Specialty Start Date End Date Derrick Johnson MD PCP - General General Internal Medicine 12/27/15 [address] [place] [address] documented as of this encounter
--- OUTSIDE RECORDS SUMMARY | 2022-08-04 16:23 | XMS_ITS | Encounter Summary ---
:1975 Author Organization [facility] [place] [address] Care Team Providers Name Role Phone Rosa Elena Conway APRN Primary Care Provider Encounter Details Date Type Department Care Team Description 11/29/2020 [place] [facility]nott Seropositive rheumatoid arth ritis of hand; (TeleHealth) [facility] DO Jesse [facility] current use of non-steroidal a nti-inflammatories ([place]ID) [place] [address] CENTER [phone] [place] [address] Social History Tobacco Use Types Packs/Day Years Used Date Smoking Tobacco: Every Day Cigarettes 0.5 Smokeless Tobacco: Never Alcohol Use Standard Drinks/Week Comments No 0 (1 standard drink = 0.6 oz pure alcoho l) Sex Assigned at Date Recorded Not on file documented as of this encounter Progress Notes Edd Knott DO - 11/29/2020 3:45 PM EDT Outpatient Rheumatology Followup - Video Encounter ID: Monique Zamora is a 45 y.o. female with seropositive RA, diverticulitis, h/o PE X2, pneumatosis intestinalis and chronic diarrhea here for follow up on RA Interim History: Last seen 09/2020. - high RA activity off treatment - Orencia ordered 10/2020 but patient has not yet received it. CC: joint pain HPI: Monique is feeling worse than our last visit. Since then she developed a soft tissue infection ankle, on keflex since 11/25 - improving. Stitches remain, tomorrow possibly will be removed. She has a history of C diff and is worried about this on antibiotics. Joints feel worse. Hands, wrists, knees, shoulders are painful. She has not yet received orencia. Taking ibuprofen 800mg 4 times daily + night sweats No fevers ROS: all systems reviewed and are negative except as in HPI Problem List 1. Seropositive RA (RF and CCP) -Diagnosed with seropositive RA in 2006. Was following with a diesel engine fitter at [facility]. Her RA control before was good on HCQ, MTX, and enbrel. She had very few flares on this combo. Prior xrays per patient showed no erosions. Unfortunately also got on this combination (her OCP was recalled b/c it was packaged improperly) and her prior diesel engine fitter suggested aborting the . The patient opted not to do that and had a healthy baby boy. She had a placental abruptionand emergency . RX: - MTX - lack of efficacy - LEF - chronic diarrhea - Humira - 2ndary failure - Enbrel - 2ndary failure - RTX (1g every 4 months) - not covered by new insurance 2. Diverticulitis 3 Pneumatosis intestinalis - ?medication related perforation Right hemicolectomy January 2014, ileostomy, reversal July 2014. She now has chronic diarrhea. Within 15 minutes of eating she needs to go to the bathroom 4. PTSD, depression and anxiety 5. Fibromyalgia 6. pulmonary embolism x 2 thought to be secondary to inflammatory state +OCP (See Dr. Russelljs note) PMH: seropositive ra dX in 2006, PTSD, fibromyalgia, 3 c-sections, cholecystectomy, kidney stones, migraines, pneumatosis coli s/p right hemicolectomy. Social Hx: , 3 children, no tobacco, no etoh. Family Hx: maternal aunt with RA, does not know her father's side, 1 brother and 2 sisters with no autoimmune disease, has 3 children Exam: Vitals and exam not performed today Previous MDK US (09/2020) - Limited Exam R 2nd, 3rd and 5th MCPs: grade 2 synovitis by smith scale with negative PD, no erosions seen. Assessment and Plan: Monique Zamora is a 45 y.o. female with seropositive RA not currently on DMARD therapy, PE X2, diverticulitis, and fibromyalgia who is following up on RA after our initial visit in September during which she was suffering from high RA activity. In October we decided to start Orencia which was approved but with a high copay; Monique has not yet applied for financial assistance through the pharmaceutical [employer] and I encouraged her to do this. Her medical history poses challenges with RA treatment. Due to history of diverticulitis and PE, DANITZA(-) and IL 6 (-) are contraindicated. Monique experienced secondary failures with TNF (-) (Enbrel, Humira). Rituxan worked well but was stopped due to insurance coverage issues. Monique wishes to avoid steroids because of significant emotional lability from them, and instead wewill use NSAIDs with tylenol for pain relief. # Seropositive RA - active - Pending financial assistance application for Orencia - Advised Monique to start Orencia after skin infection is completely healed and finished with antibiotics # [facility] NSAID use - Advised that current dose of 800mg every 6 hours is above recommended amount - Start PPI # [employer] customer service immunosuppressant medication use - I recommended Monique receive the COVID vaccine, she declined - If she changes her mind she knows to reach out to me regarding orencia dose RTC 12 weeks Edd Knott DO [facility] [place] I spent 30 minutes caring for the patient today including chart review and documentation. documented in this encounter Plan of Treatment Not on filedocumented as of this encounter Visit Diagnoses Diagnosis Seropositive rheumatoid arthritis of myles d [facility] current use of non-steroidal a nti-inflammatories (NSAID) Encounter for long-term (current) use of non-steroidal anti-inflammatories documented in this encounter Care Teams Dramatic Teacher Relationship Specialty Start Date End Date Rosa Elena Conway APRN PCP - General Internal Medicine 11/21/[address] [place] [address] documented as of this encounter
--- OUTSIDE RECORDS SUMMARY | 2022-08-04 16:23 | XMS_ITS | Encounter Summary ---
:1975 [place] [address] Care Team Providers Name Role Phone Rosa Elena Conway APRN Primary Care Provider Encounter Details Date Type Department Care Team Description 09/29/2020 Orders Only [place] [facility] [place]nott, [facility] [place] [address] RHEUMATOLOGY [phone] [place], [place] [address] (Wo rk) Social History Tobacco [...] on filedocumented in this encounter Care Teams Communications Attendant Relationship Specialty Start Date End Date Rosa Elena Conway APRN PCP - General Internal Medicine 11/21/17 [address] [place], [place] [address] documented as of this encounter
--- OUTSIDE RECORDS SUMMARY | 2022-08-04 16:23 | XMS_ITS | Encounter Summary ---
:1975 Author Organization [facility] [place] [address] Care Team Providers Name Role Phone Rosa Elena Conway APRN Primary Care Provider Reason for Referral High Dollar Medication (Routine) - Closed Specialty Diagnoses / Procedures Referred By Contact Refer red To Contact Med Infusion Diagnoses Rheumatoid arthritis involving multiple sites with positive rheumatoid factor Rebeca Valerio [facility] Med Infusion 3d DO [facility] [place] [address] [place] [address] Referral ID Status Reason Start Date Expiration Date Visits V isits Requested Authorized [id number] Closed Consult, 11/27/2018 11/27/2019 1 1 Test & Treat Encounter Details Date Type Department Care Team Description 11/27/2018 Orders Only [place] [facility] Rheumatoid arthritis [facility] Rebeca Reeder DO involving multiple [facility] [place] [address] [address] [address] rheumatoid factor [phone] RHEUMATOLOGY DEP T. [place], [place] [address] Social History Tobacco Use Types [...] Orde red: Infusion Medication arthritis involving 0 11/27/2018 multiple sites with positive rheumatoid factor documented as of this encounter Visit Diagnoses Diagnosis Rheumatoid arthritis involving multiple sites with positive rheumatoid factor documented in this encounter Care Teams Laborer Driver Relationship Specialty Start Date End Date Rosa Elena Conway APRN PCP - General Internal Medicine 11/21/[address] [place] [address] documented as of this encounter
--- OUTSIDE RECORDS SUMMARY | 2022-08-04 16:23 | XMS_ITS | Encounter Summary ---
:1975 Author Organization [facility] [place] [address] Care Team Providers Name Role Phone ManRosa Elena APRN Primary Care Provider Reason for Visit Reason Onset Date Comments Triage 04/03/2018 Encounter Details Date Type Department Care Team Description 04/03/2018 Telephone Rhe[place] [facility] [place] [address] Social History Tobacco Use Types Packs/Day Years Used Date Smoking Tobacco: Every Day Cigarettes Smokeless Tobacco: Never Comments: Quit in 2008 Alcohol Use Standard Drinks/Week Comments No 0 (1 standard drink = 0.6 oz pure alcoho l) Sex Assigned at Date Recorded Not on file documented as of this encounter Miscellaneous Notes Telephone Encounter - Deja Ibanez RN - 04/14/2018 1:41 PM EDT No RTC from Monique. Will close encounter. Telephone Encounter - Deja Ibanez RN - 04/03/2018 12:46 PM EDT Call received from Monique asking for a RTC. RTC and left message for Monique to RTC to nurse. documented in this encounter Plan of Treatment Not on filedocumented as of this encounter Visit Diagnoses Not on filedocumented in this encounter Care Teams Gyroscopic Instrument Tester Relationship Specialty Start Date End Date Rosa Elena Conway APRN PCP - General Internal Medicine 11/21/[address] [place] [address] documented as of this encounter
--- OUTSIDE RECORDS SUMMARY | 2022-08-04 16:23 | XMS_ITS | Encounter Summary ---
:1975 Author Organization [facility] [place] [address] Care Team Providers Name Role Phone Rosa Elena Conway APRN Primary Care Provider Encounter Details Date Type Department Care Team Description 04/04/2018 Orders Only Rheumatology at [place] Rebeca Valerio, [facility] [place] [address] [facility] [phone] RHEUMATOLOGY [place], [place] [address] (Wo rk) Social History Tobacco [...] on filedocumented in this encounter Care Teams Mental Health Clinician Relationship Specialty Start Date End Date Rosa Elena Conway APRN PCP - General Internal Medicine 11/21/17 [place] [address] documented as of this encounter
--- OUTSIDE RECORDS SUMMARY | 2022-08-04 16:23 | XMS_ITS | Encounter Summary ---
:1975 Author Organization [facility] [place] [address] Care Team Providers Name Role Phone Rosa Elena Conway APRN Primary Care Provider Encounter Details Date Type Department Care Team Description 12/29/2018 [place] [facility] [place] Rheumatoid arthritis of mult iple sites without organ or system involvement with positive rheumatoid factor; [facility] Rebeca Reeder DO Anxiety; [place] [address] CENTER [phone] RHEUMATOLOGY DEPT. [place], [place] [address] Social History Tobacco Use Types [...] Sign Reading Time Taken Comments Blood Pressure 130/63 12/29/2018 12:10 PM EDT Pulse 84 12/29/2018 12:10 PM EDT Temperature 36.8 ??C (98.2 ??F) 12/29/2018 12:10 PM EDT Respiratory Rate - - Oxygen Saturation 100% 12/29/2018 12:10 PM EDT Inhaled Oxygen Concentration - - Weight 69.9 kg (154 lb) 12/29/2018 12:10 PM EDT Height 154.9 cm (5' 1) 12/29/2018 12:10 PM EDT Body Mass Index 29.1 12/29/2018 12:10 PM EDT documented in this encounter Progress Notes Rebeca Valerio, - 12/29/2018 12:00 PM EDT Outpatient Rheumatology Followup Problem List 1. RF+, CCP+ RA. -Diagnosed with seropositive RA in 2006. Was following with a recycle coordinator at [facility]. Her RA control before was good on HCQ, MTX, and enbrel. She had very few flares on this combo. Prior xrays per patient showed no erosions. Unfortunately also got on this combination (her OCP was recalled b/c it was packaged improperly) and her prior recycle coordinator suggested aborting the . The patient opted not to do that and had a healthy baby boy. She had a placental abruptionand emergency . Treated then with MTX, and enbrel. Then humira. Most recently Rituxan 1000 mg every 4 months. Methotrexate stopped due to lack of efficacy. Leflunomide stopped due to exacerbation of chronic diarrhea. 2. Pneumatosis intestinalis Right hemicolectomy January 2014, [...] today for routine followup of her . Last rituxan was in July. She was receiving 1 infusion every 4 months. She would like to stop the rituxan. She has lost about 70pounds and feels a lot better. She eats a keto diet. If she eats anything with gluten she feels immediately sick. She also discovered that her well water was contaminated. Once this was fixed her chronic diarrhea stopped. Taking hydroxychloroquine which we added at last visit. She is taking 1 pill daily. Would like to stop that too - she is very sensitive to the sun. She had 2 dental abscesses. Needed IV antibiotics. Lots of stress at home with her oldest son. PMH: seropositive ra dX in 2006, PTSD, fibromyalgia, 3 c-sections, cholecystectomy, kidney stones, migraines, pneumatosis coli s/p right hemicolectomy. Social Hx: , They have 3 children, no tobacco, no etoh. They are renovating their home and getting ready to sell it. Looking to move to the [facility]. Family Hx: maternal aunt with RA, does not know her father's side, 1 brother and 2 sisters with no autoimmune disease, has 3 children Exam: Gen: comfortable, pleasant, accompanied by her . She has a URI and is wearing a mask. Skin: no rash Joints: no synovitis in the hands but the MCPs are TTP Eyes: normal sclera Neuro: grossly intact. Assessment and Plan: 1. RF+, CCP+ RA 2. PTSD, depression and anxiety 3. Pulmonary embolism x 2 4. Hx of c diff 5. Fibromyalgia Monique seems to be doing well from the standpoint of her RA. She wants to hold off on rituxan for now which I think is reasonable. We discussed that the effect may linger for quite awhile. If her RA flares we should consider another dose. Continue 1 plaquenil per day for now. She would like to stop it with the warmer weather coming and more sun exposure. We will get xrays of her hands and feet today to look for progression of disease. RTC in 6 months documented in this encounter Plan of Treatment Not on filedocumented as of this encounter Visit Diagnoses Diagnosis Rheumatoid arthritis of multiple sites w [facility] organ or system involvement with positive rheumatoid factor Anxiety Anxiety state, unspecified Fibromyalgia Mylagia and myositis, unspecified documented in this encounter Care Teams Plan Nurse Relationship Specialty Start Date End Date Rosa Elena Conway APRN PCP - General Internal Medicine 11/21/[address] [place] [address] documented as of this encounter
--- OUTSIDE RECORDS SUMMARY | 2022-08-04 16:23 | XMS_ITS | Encounter Summary ---
:1975 Author Organization [facility] [place] [address] Care Team Providers Name Role Phone Rosa Elena Conway APRN Primary Care Provider Encounter Details Date Type Department Care Team Description 11/11/2019 Telephone [place] [facility] Candace Salinas APRN [facility] [address] [place] [id number] [phone] (Wo rk) Social History Tobacco Use Types Packs/Day Years Used Date Smoking Tobacco: Every Day Cigarettes Smokeless Tobacco: Never Comments: Quit in 2008 Alcohol Use Standard Drinks/Week Comments No 0 (1 standard drink = 0.6 oz pure alcoho l) Sex Assigned at Date Recorded Not on file documented as of this encounter Miscellaneous Notes Telephone Encounter - Keisha Sequeira RN - 11/11/2019 12:38 PM EST Kristel from the disability insurance company left a VM wanting to know if Dr Valerio had received the disability paperwork and if so, how far along is she in the process of getting it filled out. Relayed Dr Oquendo's message stating she had completed the paperwork and faxed it in last week. They stated that they never received it, could we provide the number that it was faxed. Unfortunately, I did not have that number available. documented in this encounter Plan of Treatment Not on filedocumented as of this encounter Visit Diagnoses Not on filedocumented in this encounter Care Teams Archeologist Relationship Specialty Start Date End Date Rosa Elena Conway APRN PCP - General Internal Medicine 11/21/[address] [place] [address] documented as of this encounter
--- OUTSIDE RECORDS SUMMARY | 2022-08-04 16:23 | XMS_ITS | Encounter Summary ---
:1975 Author Organization [facility] [place] [address] Care Team Providers Name Role Phone Rosa Elena Conway APRN Primary Care Provider Encounter Details Date Type Department Care Team Description 07/01/2019 Office Visit [place] [facility] [place] Rheumatoid arthritis of mult iple sites without organ or system involvement with positive rheumatoid factor; [facility] Rebeca [place] [address] CENTER [phone] RHE[address] DEPT. [place], [place] [address] Social History Tobacco Use Types [...] Sign Reading Time Taken Comments Blood Pressure 126/82 07/01/2019 11:32 AM EDT Pulse 68 07/01/2019 11:32 AM EDT Temperature 36.8 ??C (98.3 ??F) 07/01/2019 11:32 AM EDT Respiratory Rate - - Oxygen Saturation 99% 07/01/2019 11:32 AM EDT Inhaled Oxygen Concentration - - Weight 86.2 kg (190 lb) 07/01/2019 11:32 AM EDT Height 154.9 cm (5' 1) 07/01/2019 11:32 AM EDT Body Mass Index 35.9 07/01/2019 11:32 AM EDT documented in this encounter Progress Notes Rebeca Valerio, - 07/01/2019 11:30 AM EDT Outpatient Rheumatology Followup Problem List 1. RF+, CCP+ RA. -Diagnosed with seropositive RA in 2006. Was following with a assistance representative at [facility]. Her RA control before was good on HCQ, MTX, and enbrel. She had very few flares on this combo. Prior xrays per patient showed no erosions. Unfortunately also got on this combination (her OCP was recalled b/c it was packaged improperly) and her prior assistance representative suggested aborting the . The patient opted [...] secondary to inflammatory state +OCP (See Dr. Hadley note) Interim History: Monique returns today for routine followup of her . Last seen in December. rituxan wasin July 2018. She wanted to stop rituximab. We stopped plaquenil as well. She is very sore. She has gained some weight back. Keto diet made her feel better. Her right shoulder and left hip hurt themost. She has had 2 teeth extracted due to infections. She is taking advil and tylenol around the clock. They help a little. Hands, wrists, shoulders, hips are all involved. Her knees, ankles and feet are OK. She does not want to go back on medications at this time. PMH: seropositive ra dX in 2006, PTSD, fibromyalgia, 3 c-sections, cholecystectomy, kidney stones, migraines, pneumatosis coli s/p right hemicolectomy. Social Hx: , They have 3 children, no tobacco, no etoh. They are renovating their home and getting ready to sell it. Looking to move to the [facility]. Family Hx: maternal aunt with RA, does not know her father's side, 1 brother and 2 sisters with no autoimmune disease, has 3 children Exam: Gen: comfortable, pleasant, accompanied by her son. Skin: no rash Joints: 2nd and 3rd MCPs are swollen and tender b/l. Right shoulder with impingement signs Eyes: normal sclera Neuro: grossly intact. Assessment and Plan: 1. RF+, CCP+ RA 2. PTSD, depression and anxiety 3. Pulmonary embolism x 2 4. Hx of c diff 5. Fibromyalgia Monique always feels better when she is following a keto diet. She will try to get back to that. She does not want medications for her RA right now. If things flare she will let me know. It sounds like her new insurance will not pay for rituximab. I would favor xeljanz XR next for her. RTC in 6 months. documented in this encounter Plan of Treatment Not on filedocumented as of this encounter Visit Diagnoses Diagnosis [facility] with positive rheumatoid factor Fibromyalgia Mylagia and myositis, unspecified documented in this encounter Care Teams Memorial Adviser Relationship Specialty Start Date End Date Rosa Elena Conway APRN PCP - General Internal Medicine 11/21/[address] [place] [address] documented as of this encounter
--- OUTSIDE RECORDS SUMMARY | 2022-08-04 16:23 | XMS_ITS | Encounter Summary ---
:1975 Author Organization [facility] [address] Care Team Providers Name Role Phone Derrick Johnson MD Primary Care Provider [phone] Encounter Details Date Type Department Care Team Description 07/24/2017 Office Visit [place] [facility]man Rheumatoid arthritis [facility] Rebeca Reeder DO of multiple sites [facility] [place] [address] system involvement [phone] RHEUMATOLOGY with positive DEPT. rheumatoid factor [place] [address] Social History Tobacco Use Types Packs/Day Years Used Date Smoking Tobacco: Every Day Cigarettes Smokeless Tobacco: Never Comments: Quit in 2008 Alcohol Use Standard Drinks/Week Comments No 0 (1 standard drink = 0.6 oz pure alcoho l) Sex Assigned at Date Recorded Not on file documented as of this encounter Progress Notes Rebeca Valerio DO - 07/24/2017 12:00 PM EST Outpatient Rheumatology Followup Problem List 1. RF+, CCP+ RA. -Diagnosed with seropositive RA in 2006. Was following with a treasury representative at [facility]. Her RA control before was good on HCQ, MTX, and enbrel. She had very few flares on this combo. Prior xrays per patient showed no erosions. Unfortunately also got on this combination (her OCP was recalled b/c it was packaged improperly) and her prior treasury representative suggested aborting the . The patient [...] receiving rituxan today. Her RA is OK. Right 4th PIP joint hurts as do both of her knees. She feels as if she is still getting benefit from rituximab. No infections. She has stopped essentially all of her medications and is now only taking eliquis and rituxan. She continues to have chronic diarrhea. PMH: seropositive ra dX in 2006, PTSD, [...] med infusion today Skin: no rash Joints: no synovitis in the hands. Right 4th pip joint is tender. She can make a full fist. Both knee hyperextend Eyes: normal sclera Neuro: grossly intact. She has multiple tenderpoints. Assessment and Plan: 1. RF+, CCP+ RA 2. PTSD, depression and anxiety 3. Pulmonary embolism x 2 4. Hx of c diff Monique will continue with every 4 month Rituxan infusions. No labs needed today.we will repeat labs and hand/foot xrays at next visit. I will see her back in 4 months documented in this encounter Plan of Treatment Not on filedocumented as of this encounter Visit Diagnoses Diagnosis Rheumatoid arthritis of multiple sites w ithout organ or system involvement with positive rheumatoid factor documented in this encounter Care Teams Clinical Immunologist Relationship Specialty Start Date End Date Derrick Johnson MD PCP - General General Internal Medicine 12/27/[address] [place] [address] documented as of this encounter
--- OUTSIDE RECORDS SUMMARY | 2022-08-04 16:23 | XMS_ITS | Encounter Summary ---
:1975 Author Organization [facility] Address [address] [place] [address] Care Team Providers Name Role Phone ManRosa Elena moya APRN Primary Care Provider Reason for Visit Reason Comments Specialty Pharmacy Review abatacept (Orencia) 125 mg/m L Encounter Details Date Type Department Care Team Description 11/22/2020 Specialty [place] [facility] [place] [facility] Review (a [address] (Orencia) 125 mg/mL) [place] [id number] Social History Tobacco Use Types Packs/Day Years Used Date Smoking Tobacco: Every Day Cigarettes 0.5 Smokeless Tobacco: Never Alcohol Use Standard Drinks/Week Comments No 0 (1 standard drink = 0.6 oz pure alcoho l) Sex Assigned at Date Recorded Not on file documented as of this encounter Progress Notes [place] - 11/22/2020 11:59 PM EDT The - Specialty Pharmacy has completed a benefits investigation for Monique Zamora to review their eligibility to fill at [facility]. Per patient's medication list they are prescribed abatacept (Orencia) 125 mg/mL and the medication is not able to be filled at the [facility]. documented in this encounter Plan of Treatment Not on filedocumented as of this encounter Visit Diagnoses Not on filedocumented in this encounter Care Teams Surveillance Sensor Officer Relationship Specialty Start Date End Date Rosa Elena Conway APRN PCP - General Internal Medicine 11/21/[address] [place] [address] documented as of this encounter
--- OUTSIDE RECORDS SUMMARY | 2022-08-04 16:23 | XMS_ITS | Encounter Summary ---
:1975 Author Organization [facility] Address [address] [place] [address] Care Team Providers Name Role Phone Rosa Elena Conway APRN Primary Care Provider Reason for Visit Reason Comments Prior Authorization Orencia Clickject 125mg/mL S OAJ Encounter Details Date Type Department Care Team Description 10/19/2020 Specialty Pharmacy Pharmacy at [facility] [place] Mire[facility] Marie Prior Authorization [facility] A ([address] 125mg/mL SOAJ) [place] [id number] Social History Tobacco Use Types Packs/Day Years Used Date Smoking Tobacco: Every Day Cigarettes 0.5 Smokeless Tobacco: Never Alcohol Use Standard Drinks/Week Comments No 0 (1 standard drink = 0.6 oz pure alcoho l) Sex Assigned at Date Recorded Not on file documented as of this encounter Progress Notes Mirella Marie A - 10/19/2020 3:55 PM EST [facility], Medication Prior Authorization Patient: Monique Zamora Patient : 1975 Patient Address: [address] [place] [id number] (home) Medication Name: ORENCIA CLICKJECT 125 MG/ML SUBCUTANEOUS AUTO-INJECTOR Medication ID: [id number] Patient Location: [facility] RHEUMATOLOGY 5C Patient Location Comment: Subscriber Insurance: Rx Options [place] Subscriber Insurance Comment: Fax: Physician: LAWRENCE LANDAVERDE Physician Comment: Sent Via: [facility] [place]: [id number] Ref/Case/PA#: [id number] Medication Strength Frequency Requested: Inject the contents of one pen (125mg) subcutaneously once weekly. Qty/Day Supply: 01/04 New Start: New to Therapy Diagnosis & ICD-10 Code: Rheumatoid arthritis with positive rheumatoid factor, involving unspecified site M05.9 Patient Notified: Left Voicemessage Submission Notes: None Mirella Marie 10/19/20 4:06 PM Mirella Bolton - 10/19/2020 3:55 PM EST [facility], Prior Authorization Approval Medication Name: ORENCIA CLICKJECT 125 MG/ML SUBCUTANEOUS AUTO-INJECTOR Medication ID: [id number] Approval Dates: 10/19/2020 to 09/08/2021 Insurance requirements/notes: None Other Notes: None Case/Reference #: N/A Approval notification Received via: Fax Copay: $[phone] Copay assistance: Patient Assistance Referral Copay Notes: Insurance mandated Pharmacy: [facility] Fillable at [facility]: Yes Pharmacy staff will be reaching out to the patient to inform them of their medication's approval by their insurance. If applicable, a pharmacist will speak with the patient to offer our specialty pharmacy services and to arrange delivery of their medication. Mirella Marie 10/20/20 8:58 AM Delmis Kirby [facility] - 10/19/2020 3:55 PM EST [facility]- Career Development Director Assistance Update The [facility] has looked into assistance for the following patient, but we have not been able to find any copay cards or foundations with available funding for them. The patient has been provided information to apply for apron cleaner assistance program to receive free medication. The [facility] will follow-up with the patient in 7 days to see if they need any additional guidance. Patient: Monique Zamora : 1975 Medication: ORENCIA CLICKJECT 125 MG/ML SUBCUTANEOUS AUTO-INJECTOR Dosing: Inject the contents of one pen (125mg) subcutaneously once weekly. Insurance: Rx Options [place] Medicare Part D?: Yes [place] has been approved, current copay is: $1,782.40 Delmis Damon RPH 10/25/20 10:07 AM documented in this encounter Plan of Treatment Not on filedocumented as of this encounter Visit Diagnoses Not on filedocumented in this encounter Care Teams Piano Technician Relationship Specialty Start Date End Date Rosa Elena Conway APRN PCP - General Internal Medicine 11/21/[address] [place] [address] documented as of this encounter
--- OUTSIDE RECORDS SUMMARY | 2022-08-04 16:24 | XMS_ITS | Encounter Summary ---
:1975 Author Hub Email Address Author Hub Preferred Language Ivorian Marital Status Adventist Affiliation Unknown Race White Ethnic Group Not or Author Organization [place] [address] Care Team Providers Name Role Phone Adrián Reynolds MD Primary Care Provider [phone] Reason for Visit Reason Comments IV Medication High Dollar Medication (Routine) - Specialty Diagnoses / Procedures Referred By Contact Refer red To Contact Med Infusion Diagnoses Rheumatoid arthritis Rebeca Valerio, [facility] Med Infusion 3d Procedures TC RITUXIMAB, 100MG, INJECTION (RITUXAN) DO [facility] [place] [address] [place] [address] Referral ID Status Reason Start Date Expiration Date Visits V isits Requested Authorized [id number] Evaluate and 01/31/2015 02/01/2016 12 12 Treat Encounter Details Date Type Department Care Team Description 06/02/2015 Hospital Encounter Med Infusion at [facility], [place] [address] Social History Tobacco Use Types Packs/Day Years Used Date Smoking Tobacco: Former Cigarettes Smokeless Tobacco: Never Comments: Quit in 2008 Alcohol Use Standard Drinks/Week Comments No 0 (1 standard drink = 0.6 oz pure alcoho l) Sex Assigned at Date Recorded Not on file documented as of this encounter Last Filed Vital Signs Vital Sign Reading Time Taken Comments Blood Pressure 138/78 06/02/2015 10:14 AM EDT Pulse 77 06/02/2015 10:14 AM EDT Temperature 37.3 ??C (99.1 ??F) 06/02/2015 10:14 AM EDT Respiratory Rate 16 06/02/2015 10:14 AM EDT Oxygen Saturation 100% 06/02/2015 10:14 AM EDT Inhaled Oxygen Concentration - - Weight - - Height - - Body Mass Index - - documented in this encounter Medications at Time of Discharge Medication Sig Dispensed Refills Start Date End Date MULTIVITAMIN/IRON/FOLIC Take by mouth 0 ACID (MULTI-VIRAL ORAL) daily. QUEtiapine (SEROQUEL) 100 Take 100 mg by 0 07/24/2017 mg Tablet mouth. Takes 100 mg a.a. And 300 mg night L-Norgest&E Estradiol-E Take 1 tablet by 90 tablet 3 201410/31/2015 Estrad 0.15 mg-30 mcg mouth daily. (84)/10 mcg (7) Tablet, Dose Pack, 3 Months traMADol (ULTRAM) 50 mg Take 1-2 tablets 240 tablet 3 201408/01/2015 Tablet by mouth every 6 hours as needed for Pain. diclofenac 1 % Gel Apply 2 g 1 Tube 3 01/20/20152016 topically 4 times daily. methotrexate 2.5 mg Tablet Take 10 tablets 120 tablet 3 10/1105/10/2016 by mouth once a week. Split dose 5 in am. and 5 in pm. methylPREDNISolone (MEDROL) Take 2.5 tablets 90 tablet 3 06/20/2015 4 mg Tablet by mouth daily. Dose is 10 mg daily. clonazePAM (KLONOPIN) 1 mg Take 1 mg by 0 10/31/2015 Tablet mouth 2 times daily as needed for Anxiety. acetaminophen (TYLENOL) 500 Take 1,000 mg by 0 07/24/2017 mg Tablet mouth every 6 hours as needed for Pain. folic acid (FOLVITE) 1 mg Take 1 tablet by 90 tablet 3 12/0905/10/2016 tablet mouth daily. sertraline (ZOLOFT) 50 mg Take 100 mg by 0 10/31/2015 tablet mouth daily. documented as of this encounter Progress Notes Flavia Stein RN - 06/02/2015 11:22 AM EDT Patient Name: Monique Zamora Patient Age: 39 y.o. Birthdate: 1975 Admit date: 06/02/2015 Attending Physician: DR SCOTT BAUMANN INFUSION THERAPY ADMINISTRATION NOTES DIAGNOSIS: The encounter diagnosis was Rheumatoid arthritis. REASON FOR VISIT: Rituxan SUBJECTIVE: I was supposed to go 6 months between infusions but my arthritis started acting up so we are doing every 4 month infusions now OBJECTIVE: Last dose received on 12-23 VITALS: BP 138/78 mmHg Pulse 77 Temp(Src) 37.3 ??C (99.1 ??F) (Oral) Resp 16 SpO2 100% IF PAIN >5, INTERVENTION AND EFFECTIVENESS: na IV ACCESS: Peripheral IV - Single Lumen 06/02/15 1025 median cubital vein right (antecubital fossa) 3/4 in length;24 gauge (Active) HYDRATION, RATE, START TIME, STOP TIME NS @ KVO 1025. Off with infusion ANTIEMETICS/PREMEDS, DOSE, ROUTE, START TIME, STOP TIME Tylenol 650 mg po 1020 Benadryl 25 mg IV@ 1030 to 1045 Patient identification and orders checked against actual dose given at bedside by Flavia Stein RN TREATMENT/BLOOD/OTHER, DOSE, ROUTE, START TIME, STOP TIME rituxan 1000 mg IV see MAR Second dose schedule used REACTIONS (DESCRIPTION, TIME, INTERVENTION AND EFFECTIVENESS) None. ASSESSMENT: Tolerated infusion well. PLAN: Return to clinic in 4 months On 09-29 Follow up per rheumatology clinic. documented in this encounter Plan of Treatment Not on filedocumented as of this encounter Visit Diagnoses Diagnosis Rheumatoid arthritis documented in this encounter Administered Medications Inactive Administered Medications - up to 3 most recent administrations Medication Order MAR Action Action Date Dose Rate Site acetaminophen (TYLENOL) tablet Given 06/02/2015 10:20 AM EDT 650 mg 650 mg 650 mg, Oral, ONCE, 1 dose, On Aditi 06/02/15 at 1030, FIRST INFUSION Upon arrival prior to rituximab., Outpatient Transfusion, Routine diphenhydrAMINE (BENADRYL) injection 25 mg Given 06/02/2015 10:30 AM EDT 25 mg 25 mg, Intravenous, ONCE, 1 dose, On Aditi 06/02/15 at 1030, FIRST INFUSION Upon arrival prior to rituximab., Outpatient Transfusion, Routine riTUXimab (RITUXAN) 1,000 mg in sodium New Bag 06/02/2015 11:0 0 AM EDT 1,000 mg chloride 0.9% 500 mL infusion 1,000 mg, Intravenous, ONCE, 1 dose, On Aditi 06/02/15 at 1100, FIRST INFUSION Administer intravenously at an initial [...] diagnosis documented in this encounter Care Teams Ruby Software Developer Relationship Specialty Start Date End Date Adrián Reynolds MD PCP - General 12/04/13 10/30/[address] [place] [address] documented as of this encounter
--- OUTSIDE RECORDS SUMMARY | 2022-08-04 16:24 | XMS_ITS | Encounter Summary ---
:1975 Author Organization [facility] [place] [address] Care Team Providers Name Role Phone Estefani Rodriguez MD Primary Care Provider Encounter Details Date Type Department Care Team Description 11/05/2015 Telephone Hematology and Oncol ogy at [facility] Lilibeth Wu, [place] [phone] Social History Tobacco Use Types Packs/Day Years Used Date Smoking Tobacco: Former Cigarettes Smokeless Tobacco: Never Comments: Quit in 2008 Alcohol Use Standard Drinks/Week Comments No 0 (1 standard drink = 0.6 oz pure alcoho l) Sex Assigned at Date Recorded Not on file documented as of this encounter Miscellaneous Notes Telephone Encounter - Lilibeth Wu RN - 11/05/2015 9:42 AM EST T/c to patient and reviewed lab results and recommendations outlined by Dr. Son below. Monique had an opportunity to have questions answered. Patient has a follow up prosper't with Dr. Son in a few weeks and will discuss alternative oral anticoagulants at this time. Patient to see her CANVASS MANAGER physician to discuss options for mennorrhagia, including an ablation, Mirena IUD and progesterone only pills. Monique stated her menorrhagia has not been as 'bad' recently. Will discuss preparation needed from an anitcoagulation perspective prior to ablation with Dr. Barksdale at her next clinic visit. Lilibeth Wu, MSN, RN ===View-only below this line=== ----- Message ----- From: Sanjana Son MD Sent: 11/04/2015 1:12 PM To: MICHELLE March: can you let her know if she needs sth for her menorrhagia, she can consider Mirena IUD or progesterone only pill? I forgot to let her know at the visit. Thanks, Sanjana Ms. Melgar is a 40 year old woman with history of pulmonary embolism who is here for evaluation of thrombophilia and duration of anticoagulation. PLAN 1. Thrombophilia testing today ?? 2. Continue enoxaparin for now with a plan to switch to one of target specific oral anticoagulants either apixaban or rivaroxaban at follow-up visit ?? 3. I am in favor to recommend long-term anticoagulation in her case. Will determine the duration of anticoagulation after reviewing lab, imaging 4. Request CTA result/imaging from OSH ?? 5. Consider Mirena IUD or progesterone only pill for contraception/menorrhagia. All of her questions were answered at her satisfaction. I will see her back in 3 weeks to discuss thrombophilia testing and finalize my recommendation regarding choice and duration of anticoagulation. Sanjana Son MD [facility] Results for MONIQUE MELGAR ( ) as of 11/07/2015 15:08 Ref. Range 10/31/2015 16:15 Platelets Latest Ref Range: 145-370 x10(3)/mcL 210 PT Latest Ref Range: 12.0-15.0 sec 13.3 INR Latest Ref Range: 0.9-1.1 1.0 PTT Latest Ref Range: 25-35 sec 34 Fibrinogen Latest Ref Range: 175-450 mg/dL 320 Thrombin Time Latest Ref Range: 15-20 sec 25 (H) Lupus Anticoag Latest Ref Range: Neg Neg APC Resistance Latest Ref Range: >=2.00 2.42 Antithrombin Latest Ref Range: 80-120 % 72 (L) Protein C Act Latest Ref Range: 67-156 % activity 149 Protein S Act Latest Ref Range: 65-123 % activity 149 (H) Homocyst Tot Latest Ref Range: <=15 mcmol/L 8 PROTHROMBIN MUT Unknown In process Rpt documented in this encounter Plan of Treatment Not on filedocumented as of this encounter Visit Diagnoses Not on filedocumented in this encounter Care Teams Enlisted Aircrew/Aerial Observer/Gunner Relationship Specialty Start Date End Date Estefani Rodriguez MD PCP - General General Internal Medicine 10/31/15 [address] [place] [address] documented as of this encounter
--- OUTSIDE RECORDS SUMMARY | 2022-08-04 16:24 | XMS_ITS | Encounter Summary ---
:1975 Author Organization [facility] Address [address] [place] [address] Care Team Providers Name Role Phone Estefani Rodriguez MD Primary Care Provider Reason for Visit Reason Comments Advice Only Consultation (Routine) - Closed Specialty Diagnoses / Procedures Referred By Contact Refer red To Contact Hematology and Oncology Diagnoses coagulopathy eval due to second pulmonary emboli, despite therpeutic INR on Derrick Aranda [facility] Hem Onc roseline Moore MD [address] [id number] Fax: Referral ID Status Reason Start Date Expiration Date Visits V isits Requested Authorized [id number] Closed Consult, 10/04/2015 10/03/2016 1 1 [facility] Encounter Details Date Type Department Care Team Description 10/31/2015 Office Visit Hematology and Sanjana Delacruz R, Pulmona ry embolism, Oncology at [facility] other (Primary Dx) [facility] [address] HEMATOLOGY/ONCOLOG [id number] Y DEPT. [phone] [place], [place] [address] Social History Tobacco Use Types Packs/Day Years Used Date Smoking Tobacco: Former Cigarettes Smokeless Tobacco: Never Comments: Quit in 2008 Alcohol Use Standard Drinks/Week Comments No 0 (1 standard drink = 0.6 oz pure alcoho l) Sex Assigned at Date Recorded Not on file documented as of this encounter Last Filed Vital Signs Vital Sign Reading Time Taken Comments Blood Pressure 137/87 10/31/2015 2:24 PM EST Pulse 101 10/31/2015 2:24 PM EST Temperature 36.2 ??C (97.2 ??F) 10/31/2015 2:24 PM EST Respiratory Rate 18 10/31/2015 2:24 PM EST Oxygen Saturation 100% 10/31/2015 2:24 PM EST Inhaled Oxygen Concentration - - Weight 103.3 kg (227 lb 11.8 oz) 10/31/2015 2:24 PM EST Height 155.2 cm (5' 1.1) 10/31/2015 2:24 PM EST Body Mass Index 42.89 10/31/2015 2:24 PM EST documented in this encounter Progress Notes Camryn Xiao, DO - 10/31/2015 2:29 PM EST [facility] Department of Medicine [place] [id number] [facility] THROMBOSIS CONSULTATION DATE OF VISIT 10/31/2015 Patient Monique Zamora [address] Johnson PRIMARY CARE PHYSICIAN ESTEFANI RODRIGUEZ MD REASON FOR CONSULTATION Recurrent PE while on anticoagulation HISTORY OF THE PRESENT ILLNESS Monique Zamora is a 40 y.o. woman with Rheumatoid Arthritis, Obesity, and Fibromyalgia who is seenin consultation at the request of Dr. Johnson for recurrent pulmonary emboli. The history is obtained from the patient, and I have reviewed extensive medical records provided by the referring physician and located in the electronic medical record to fill in gaps in the patient's recollection of events, treatments and outcomes. Ms. Zamora initially presented in June 2015 when she developed symptoms of pain deep inside her left anterior rib cage. Symptoms came on gradually but acutely, her breathing became more labored and associated with shortness of breath so she sough immediate medical attention at [facility]. CT chest done was notable for a large thrombus in the posterior descending branch of the left pulmonary artery extending into the 2nd and 3rd order arterial branches. She was hospitalized and started on heparin infusion with a bridge to warfarin and her symptoms resolved within one months time. Ultrasound of bilateral LE done 07/07 revealed no lower extremity DVT. Preceding the development of this blood clot, she had been trialed on control in attempts to control heavy menses. She has a long history of having been on control as a young adult, at least 10 years. She also recalls having a flare of her RA in late May where she was relatively immobile in bed. Overall, she has had very poor disease control since diagnosis in 2006 with frequent flares in her hands, wrists, shoulders. She is currently on infusional rituximab every 4 months, this will be her third infusion but she thinks itis not frequent enough. Additionally, she is on weekly methotrexate and daily steroids. She was maintained on warfarin without complications until an episode of excessive menstrual bleeding in July requiring reversal with Vitamin K. She was not transfused with blood products, monitored overnight, but subsequently experienced nearly a month of subtherapeutic INR during August. At this time, CT chest was repeated on 07/29 noting resolution of previously described left sided PE. In mid-September, she developed chest pain symptoms with the same presentation as before but in a slightly more lateral location over her left chest wall. According to pulmonary notes, she was evaluated at [facility] where a chest Xray was negative and a follow up CT chest done at [place] showed new left-sided PE. Those exams are unavailable to us for review. She was taken off warfarin and put on Lovenox twice daily. Since then, she has bruising on her abdomen but otherwise is tolerating the injections well. There is no significant bleeding. There is no mention of any follow up LE ultrasound. She had one further episode of chest pain earlier this month prompting a repeat CT chest done 10/12 that showed no filling defects and small left pleural effusion. A malignancy work up noted a right breast nodule that was evaluated with ultrasound to be a simple cyst. THROMBOSIS RISK FACTORS Risk Factor Comment Obesity (BMI >30 kg/m2) V/A Y Body mass index is 42.89 kg/(m^2). Diabetes V/A Current smoker V/A Estrogen or estrogen/progestin V/A V/A Inflammatory disease V/A Y Recent surgery (<3 months) V Recent hospitalization (<3 mo) V Recent travel (<3 mo) V Period of immobility V Documented thrombophilia V Accident/Trauma V/A Cancer or treatment for cancer V/A Blood transfusion V/A Central venous catheter V Family history (1st degree) V/A Varicose veins/venous insuff. V Hypertension A Hyperlipidemia A Vascular disease A V: Risk factor for venous thrombosis; A: Risk factor for arterial thrombosis PAST MEDICAL HISTORY Past Medical History Diagnosis Date ??? Rheumatoid arthritis(714.0) ??? Depression ??? Anxiety ??? Fibromyalgia OPERATIVE PROCEDURES Past Surgical History Procedure Laterality Date ??? section 2000 ??? section 2003 ??? section 2011 ??? Pro exploratory of abdomen 01/28/2014 @EXPLORATORY LAPAROTOMY, WITH/WITHOUT BIOPSY(S) performed by Mele Alexander MD at [facility] MAIN OR ??? Pro unlisted procedure, small intestine 01/28/2014 HEMICOLECTOMY, WITH ILEOSTOMY performed by Mele Alexander MD at [facility] MAIN OR ??? Pro colonoscopy, diagnostic 06/07/2014 COLONOSCOPY, DIAGNOSTIC performed by Beni Hernandez MD at [facility] ENDOSCOPY ? ? Pro remvl colon & term ileum w/ileocolostomy N/A 07/20/2014 @COLECTOMY, PARTIAL, WITH REMOVAL TERMINAL ILEUM, WITH ILEOCOLOSTOMY performed by Mele Alexander MD at [facility] MAIN OR ??? N/A 07/20/2014 MODIFIER , ILEOSTOMY TAKEDOWN performed by Mele Alexander MD at [facility] MAIN OR OBSTETRIC HISTORY Menses at age 11 - medical - miscarriage at 24 weeks - 2 boys, 1 girl 2011 difficult with abruptio placenta 3 c-sections No estrogen creams/supplements BC use as above MEDICATIONS Medications 10/31/15 1437 Medication Sig Taking? enoxaparin (LOVENOX) 100 mg/mL Syringe 1 mg/kg/dose. Yes LORazepam (ATIVAN) 0.5 mg Tablet Yes PARoxetine (PAXIL) 20 mg Tablet Yes SUMAtriptan (IMITREX) 50 mg Tablet Yes acidophilus-pectin, citrus 100 million cell-10 mg Capsule Take by mouth. Yes traMADol (ULTRAM) 50 mg Tablet Take 1-2 tablets by mouth every 6 hours as needed for Pain. Yes methylPREDNISolone (MEDROL) 4 mg Tablet Take 3 tablets by mouth daily. Yes QUEtiapine (SEROQUEL) 100 mg Tablet Take 100 mg by mouth 2 times daily. Yes diclofenac 1 % Gel Apply 2 g topically 4 times daily. Yes methotrexate 2.5 mg Tablet Take 10 tablets by mouth once a week. Split dose 5 in am. and 5 in pm. Yes MULTIVITAMIN/IRON/FOLIC ACID (MULTI-VIRAL ORAL) Take by mouth daily. Yes folic acid (FOLVITE) 1 mg tablet Take 1 tablet by mouth daily. Yes prazosin (MINIPRESS) 5 mg Capsule venlafaxine (EFFEXOR-XR) 150 mg Capsule, Sust. Release 24 hr acetaminophen (TYLENOL) 500 mg Tablet Take 1,000 mg by mouth every 6 hours as needed for Pain. ADVERSE DRUG REACTIONS Allergies as of 10/31/2015 - Review Complete 10/31/2015 Allergen Reaction Noted ??? Latex, natural rubber 10/31/2015 ??? Sulfa (sulfonamide antibiotics) Anaphylaxis ??? Tape, permeable adhesive 01/28/2014 FAMILY HISTORY M: alive with emphysema from smoking F: unknown family history 1 brother, 2 sisters - no known health problems Maternal Aunt with RA No family hx of cancers or blood clotting conditions SOCIAL HISTORY Prior smoker age 14-24 ~1PPD No ETOH, drugs REVIEW OF SYSTEMS Fevers/chills/sweats No Recent infections No Unexplained weight loss/gain Weight gain with use of steroids, increased appetite Headache/lightheadedness/syncope Recent vertigo Sinus pain/pressure No Oral sores/lesions/bleeding No Sore throat/dysphagia No Nosebleeds No Cough/SOB/chest pain/heart racing No, last bout of chest pain ~2 weeks ago [facility] Nausea/vomiting/dyspepsia Occasional nausea Abdominal pain Constant IBS Diarrhea/constipation No Urinary pain, burning, incontinence No Hematuria No Vaginal discharge/bleeding No Skin rashes/ulcers No Back/joint pain/swelling RA: fingers, shoulders, knees, hips Leg swelling/pain/redness Chronic LE edema, L>R Bruising/petechiae/bleeding/melena No Sensory/motor No Polydipsia/polyuria/heat/cold intol No Lumps/bumps/swollen glands No Other Negative except as above PHYSICAL EXAMINATION BP 137/87 mmHg Pulse 101 Temp(Src) 36.2 ??C (97.2 ??F) (Temporal) Resp 18 Ht 155.2 cm (5' 1.1) Wt 103.3 kg (227 lb 11.8 oz) BMI 42.89 kg/m2 SpO2 100% GENERAL: Well-appearing, obese, articulate white female. HEENT: Oropharynx clear; no mucosal lesions, petechiae, bleeding, thrush or ulcers. NECK: Supple; no cervical, supraclavicular or submental adenopathy. BREASTS: Exam deferred. CHEST/LUNGS: Clear to auscultation/percussion. No rales, rhonchi, wheezes. HEART: Regular rate and rhythm; no murmur, rub, gallop GASTROINTESTINAL: Abdomen soft, non-tender, no hepatosplenomegaly. GENITOURINARY: Exam deferred. EXTREMITIES: No clubbing, cyanosis or edema. No erythema, tenderness or palpable cords. No venous varicosities. No skin discoloration or hemosiderin deposits. Peripheral pulses palpable. Hypertrophic joints noted over b/l MCPs, tender to palpation. MUSCULOSKELETAL: Spine nontender. Full ROM all joints. SKIN: No ecchymoses, petechiae, ulcers or rashes. LYMPH: No palpable lymph nodes. NEUROLOGIC: Alert, oriented. Speech clear, coherent. No focal deficits noted. PSYCHIATRIC: Appropriate affect, no apparent distress. LABORATORY STUDIES Pending. RADIOGRAPHIC STUDIES I have personally reviewed images from the following studies: as listed above in HPI. IMPRESSION Monique Zamora is a 40 y.o. obese woman with rheumatoid arthritis who sustained a large pulmonary embolus in the left pulmonary artery, likely provoked by her poorly controlled chronic inflammatory condition and obesity, less likely her use of oral contraceptives as she historically used these medica tions without VTE. We suspect her second PE may have been precipitated by continued RA and subtherapeutic INR during the month of July/August after administration of vitamin K. We agree with use of enoxaparin at this time, however do not feel this represents a failure of anticoagulation. We will recommend thrombophilia testing today and depending on these results may recommend continued (long-term) anticoagulation at least while her rheumatoid arthritis is not well controlled. PLAN/RECOMMENDATIONS - Stay on enoxaparin while ongoing risk factors not under control - Review September CT imaging to determine if this is truly recurrent or not - Thrombophilia testing to determine long-term options RTO: November 21, 2015 at 11 am Monique Zamora had the opportunity to ask questions and indicated that all her questions were answered to her satisfaction. She will follow up with me in approximately three weeks to discuss the results of the thrombosis testing, and I will finalize my recommendations at that time. Camryn Xiao DO Hematology-Oncology Fellow Pager [phone] 10/31/2015 4:36 PM +*+*+*+*+*+*+*+*+*+*+*+*+*+*+*+*+*+*+*+*+*+*+*+*+*+*+*+*+*+*+*+*+*+*+*+*+*+* Thrombosis Attending Physician I have independently interviewed and examined this patient in the outpatient clinic and have personally reviewed the relevant clinical, laboratory and radiological data with Dr. Xiao Hematology/Oncology Fellow. Please refer to the comprehensive consultation note above, with which I concur, for complete details of our encounter with this patient. I have reviewed and endorse the recommendations as outlined and have made any additions/corrections below. Ms. Zamora is a 40 year old woman with history of pulmonary embolism who is here for evaluation of thrombophilia and duration of anticoagulation. In her case, her pulmonary embolism appeared to be unprovoked. There was no surgery, hospitalization, travel within the 3 months of her PE. However, she has at least 2 ongoing clinical risk factors forVTE including her inflammatory disease such as poorly controlled rheumatoid arthritis and morbid obesity. She stated that her RA is poorly controlled and she would have at least acute flare of her RA every 1-2 months. There was one acute flare of RA in May 2015 (a few weeks before her PE). We reviewed that the risk of VTE recurrence is the highest within the first 3 months after initial diagnosis ofPE, I think her recurrent PE can be explained by subtherapeutic INR. She reports to have subtherapeutic INR levels for a month. First I recommend her to perform thrombophilia testing to rule out both inherited and acquired thrombophilia. Given that she had multiple imaging at different hospitals, I would like to request the imaging and result of those CT to review. We did not have the result of the second CT that confirmed her recurrent PE. For now, I asked her to continue enoxaparin until she sees me back in 3 weeks for follow-up. If there is no evidence of antiphospholipid syndrome, target specific oral anticoagulant such as apixaban orrivaxoban would be a good option for her. Given that her inflammatory disease and morbid obesity continue to be ongoing clinical risk factors and if she truly had a recurrent event, I think that her risk of VTE recurrence is as high as 20% over 2 years following discontinuation of anticoagulation, therefore I am in favor to recommend long-term anticoagulation in her case if she continues to do well on anticoagulant. I will finalize my recommendation at follow-up visit. Finally estrogen containing oral contraceptive is contraindicated for her. Mirena IUD or progesterone only pill are not associated with VTE risk and can be considered for contraception and menorrhagia. PLAN 1. Thrombophilia testing today 2. Continue enoxaparin for now with a plan to switch to one of target specific oral anticoagulants either apixaban or rivaroxaban at follow-up visit 3. I am in favor to recommend long-term anticoagulation in her case. Will determine the duration of anticoagulation after reviewing lab, imaging 4. Request CTA result/imaging from OSH 5. Consider Mirena IUD or progesterone only pill for contraception/menorrhagia. All of her questions were answered at her satisfaction. I will see her back in 3 weeks to discuss thrombophilia testing and finalize my recommendation regarding choice and duration of anticoagulation. Sanjana Son MD [facility] documented in this encounter Plan of Treatment Not on filedocumented as of this encounter Procedures Procedure Name Priority Date/Time Associated Comments Diagnosis PROTHROMBIN MUT Routine 10/31/2015 4:15 PM Result s for this EST procedure are i n the results section. TT Routine 10/31/2015 4:15 PM Pulmonary embolism, Re sults for this EST other procedure are i n the results section. PTT Routine 10/31/2015 4:15 PM Pulmonary embolism, Re sults for this EST other procedure are i n the results section. PT Routine 10/31/2015 4:15 PM Pulmonary embolism, Re sults for this EST other procedure are i n the results section. PLAT Routine 10/31/2015 4:15 PM Pulmonary embolism, Re sults for this EST other procedure are i n the results section. LANT Routine 10/31/2015 4:15 PM Pulmonary embolism, Re sults for this EST other procedure are i n the results section. FIBR Routine 10/31/2015 4:15 PM Pulmonary embolism, Re sults for this EST other procedure are i n the results section. THROMBOSIS SCREEN Routine 10/31/2015 4:15 PM Pulmonary embolis m, EST other THS REPORT Routine 10/31/2015 4:15 PM Pulmonary embolism, Re sults for this EST other procedure are i n the results section. PROTEIN S ACTIVITY Routine 10/31/2015 4:15 PM Res ults for this EST procedure are i n the results section. APC RESISTANCE Routine 10/31/2015 4:15 PM Results for this EST procedure are i n the results section. BETA-2 GLYCOPROTEIN Routine 10/31/2015 4:15 PM Pulmonary embol ism, Results for this ANTIBODIES EST other procedure are i n the results section. PROTEIN C ACTIVITY Routine 10/31/2015 4:15 PM Res ults for this EST procedure are i n the results section. CARDIOLIPIN ANTIBODY Routine 10/31/2015 4:15 PM Pulmonary embo lism, Results for this SCREEN EST other procedure are i n the results section. ANTITHROMBIN Routine 10/31/2015 4:15 PM Results f or this EST procedure are i n the results section. HOMOCYSTEINE TOTAL, Routine 10/31/2015 4:15 PM Pulmonary embol ism, Results for this PLASMA EST other procedure are i n the results section. THROMBOSIS SCREEN Routine 10/31/2015 4:07 PM Resu lts for this REPORT EST procedure are i n the results section. documented in this encounter Results PT Mut (10/31/2015 4:15 PM EST) Component Value Ref Test Analysis Performed At [facility] Range Method Time Signature Prothrombin Negative JESUS MANUEL Mutation [facility] Prothrombin RESULT: NEGATIVE FOR THE 202 10G>A MUTATON IN THE 3' UNTRANSLATED REGION OF THE JESUS MANUEL Mutation PROTHROMBIN GENE (([id number]) [id number]). [facility] METHODS: The region of interest in the Prothrombin gene (2 0210G->A) is HOSPITAL interrogated using a TaqMan allelic discrimination assay. Genomic DNA was LABORATORY isolated from the submitted peripheral blood specimen. Real- time PCR was performed to amplify a short region span brice the mutation site, and genotyping was performed by allelic discrimination using a mixture of f luorescently labeled probes, one of which is specific for the wild type g aparna, the other specific for the mutant gene. This assay was performed usi ng analyte specific reagents which are regulated by the U.S. Food and Drug Administration. This test was develop ed and its performance characteristics determined by the Molecular Pathology Laboratory at [facility]. This test is used for clinical purposes an d should not be considered as investigational or for research purposes. It has not been cleared or approved by the U.S. Food and Drug Administration. However, as a [employer] licensed laboratory, our facility is approved for such high complexity clinical testing. Comment: [VERIFIED DATE]11.08.15 Verified By:Isidro DOSS, Ph.D., Trinity Health Systeming Director, Cytogenetics (Electronic Signature) Specimen Anatomical Collection Method Collection Time Receive d Time (Source) Location / / Volume Laterality Blood specimen Venous Draw / 10/31/2015 4:15 PM 2015 (specimen) Unknown EST 12:01 PM EST Resulting Agency Comment Spec In Lab Sanjana Delacruz MD HEMATOLOGY ORDERABLES Performing Organization Address City/[facility]/[place] [address] (ABNORMAL) Protein S Activity (10/31/2015 4:15 PM EST) Patholo gist Method Time Signature Protein S Act 149 (H) 65 - 123 % [facility] LABORATORY Specimen Anatomical Collection Method Collection Time Receive d Time (Source) Location / / Volume Laterality Blood specimen Venous Draw / 10/31/2015 4:15 PM 2015 4:23 (specimen) Unknown EST PM EST Resulting Agency Comment Spec In Lab Sanjana Delacruz MD HEMATOLOGY ORDERABLES Performing Organization Address City/[facility]/[place] [address] Protein C activity (10/31/2015 4:15 PM EST) Analysis Performed At Patho logist Time Signature Protein C Act 149 67 - 156 % [facility] LABORATORY Specimen Anatomical Collection Method Collection Time Receive d Time (Source) Location / / Volume Laterality Blood specimen Venous Draw / 10/31/2015 4:15 PM 2015 4:23 (specimen) Unknown EST PM EST Resulting Agency Comment Spec In Lab Sanjana Delacruz MD HEMATOLOGY ORDERABLES Performing Organization Address City/[facility]/ZIP Code Phon e Number [address] (ABNORMAL) Antithrombin (10/31/2015 4:15 PM EST) P athologist Signature Antithrombin 72 (L) 80 - 120 % [facility] LAB[facility] Specimen Anatomical Collection Method Collection Time Receive d Time (Source) Location / / Volume Laterality Blood specimen Venous Draw / 10/31/2015 4:15 PM 2015 4:23 (specimen) Unknown EST PM EST Resulting Agency Comment Spec In Lab Sanjana Delacruz MD HEMATOLOGY ORDERABLES Performing Organization Address City/[facility] Code Phon e Number [address] APC resistance (10/31/2015 4:15 PM EST) athologist [facility] APC Resistance 2.42 >=2.00 [facility] Comment: Methodology: Clot-based This test was developed and its performa nce characteristics determined by [facility]. It h as not been cleared or approved by the FDA. The laboratory is regulated under [place] as qualified to perform high complexity testing. This test is used fo r clinical purposes. It should not be regarded as investigational or for resea [facility]. Specimen Anatomical Collection Method Collection Time Receive d Time (Source) Location / / Volume Laterality Blood specimen Venous Draw / 10/31/2015 4:15 PM 2015 4:23 (specimen) Unknown EST PM EST Resulting Agency Comment Spec In Lab Sanjana Delacruz MD HEMATOLOGY ORDERABLES Performing Organization Address City/[facility]/[place] [address] Beta-2 glycoprotein antibodies (10/31/2015 4:15 PM EST) P athologist Signature B2GPI IgG <21 <=20 [facility] Comment: Ranges ?Units ----- ? ----- Normal ? <21 Low Positive (+) ? 21-50 Moderate Positive (+) ? 51- 100 High Positive (+) ?>1 00 B2GPI IgM <21 <=20 unit(s) [facility] Comment: Ranges ? Units ----- ?----- Normal ?<21 Low Positive (+) ? 21 -50 Moderate Positive (+) ?51-1 00 High Positive (+) ? >100 B2GPI Interp see note [facility] Comment: See Thrombosis Screen Report in eDH under Coagulation Reports Specimen Anatomical Collection Method Collection Time Receive d Time (Source) Location / / Volume Laterality Blood specimen 10/31/2015 4:15 PM 016 7:48 (specimen) EST AM EST Resulting Agency Comment Spec In Lab Sanjana Delacruz MD IMMUNOLOGY ORDERABLES Performing Organization Address City/State/[place] [address] Homocysteine Total, Plasma (10/31/2015 4:15 PM EST) P athologist Signature Homocyst Tot 8 <=15 [facility] mcmol/L [facility] LAB[facility] Specimen Anatomical Collection Method Collection Time Receive d Time (Source) Location / / Volume Laterality Blood specimen 10/31/2015 4:15 PM 016 4:23 (specimen) EST PM EST Resulting Agency Comment Spec In Lab Sanjana Delacruz MD CHEMISTRY ORDERABLES Performing Organization Address City/State/[place] [address] [facility] [address] Cardiolipin Antibody Screen (10/31/2015 4:15 PM EST) P athologist Signature Cardiolipin IgG <23 <=22 GPL [facility] unit(s) [facility]OR[facility] Comment: Ranges ? GPL ------- ? ------ Normal ?<23 Low Positive ? 23-35 Moderate Positive ?36 -50 High Positive ? >5 0 Cardiolipin IgM <11 <=10 MPL unit(s) [facility] LABORATORY Comment: Ranges ?MPL ----- ?----- Normal ?<11 Low Positive ? 11-20 Moderate Positive ?21 -30 High Positive ? >3 0 Specimen Anatomical Collection Method Collection Time Receive d Time (Source) Location / / Volume Laterality Blood specimen 10/31/2015 4:15 PM 016 7:48 (specimen) EST AM EST Resulting Agency Comment Spec In Lab Sanjana Delacruz MD IMMUNOLOGY ORDERABLES Performing Organization Address City/[facility]/ZIP Code Phon e Number [address] THS Report (10/31/2015 4:15 PM EST) Analysis Performed At Patho logist Time Signature THS Report See Comment [facility] LABORATORY Comment: See Thrombosis Screen Report [id number] under Hematopathology Reports. Specimen Anatomical Collection Method Collection Time Receive d Time (Source) Location / / Volume Laterality Blood specimen 10/31/2015 4:15 PM 016 4:23 (specimen) EST PM EST Resulting Agency Comment Spec In Lab Sanjana Delacruz MD HEMATOLOGY ORDERABLES Performing Organization Address City/[facility]/[place] [address] Plat (10/31/2015 4:15 PM EST) P athologist Signature Platelets 210 145 - 370 [facility] x10(3)/[facility] LABORATORY Specimen Anatomical Collection Method Collection Time Receive d Time (Source) Location / / Volume Laterality Blood specimen 10/31/2015 4:15 PM 016 4:23 (specimen) EST PM EST Resulting Agency Comment Spec In Lab Sanjana Delacruz MD HEMATOLOGY ORDERABLES Performing Organization Address City/[facility]/ZIP Code Phon e Number [address] Lant (10/31/2015 4:15 PM EST) P athologist Signature Lupus Anticoag Neg Neg [facility] LABORATORY Specimen Anatomical Collection Method Collection Time Receive d Time (Source) Location / / Volume Laterality Blood specimen 10/31/2015 4:15 PM 02/22/2 016 4:23 (specimen) EST PM EST Resulting Agency Comment Spec In Lab Sanjana Delacruz MD HEMATOLOGY ORDERABLES Performing Organization Address City/[facility]/ZIP Code Phon e Number [address] (ABNORMAL) TT (10/31/2015 4:15 PM EST) P athologist Signature Thrombin Time 25 (H) 15 - 20 [facility] LABORATORY Comment: A prolongation in the thrombin time (>20 seconds) may be indicative of hypofibrinogenemia or dysfibrinogenemia. The thrombin time will be prolonged, often markedly so, by the presence of he lucille or direct thrombin inhibitors (argatroban, bivalirudin, dabigatran) in the specimen. Specimen Anatomical Collection Method Collection Time Receive d Time (Source) Location / / Volume Laterality Blood specimen 10/31/2015 4:15 PM 016 4:23 (specimen) EST PM EST Resulting Agency Comment Spec In Lab Sanjana Delacruz MD HEMATOLOGY ORDERABLES Performing Organization Address City/[facility]/[place] [address] FIBR (10/31/2015 4:15 PM EST) P athologist Signature Fibrinogen 320 175 - 450 [facility] mg/dL [facility] LAB[facility] Comment: A fibrinogen level >100 mg/dL is adequat e for hemostasis in most patients without underlying bleeding disorders. Specimen Anatomical Collection Method Collection Time Receive d Time (Source) Location / / Volume Laterality Blood specimen 10/31/2015 4:15 PM 016 4:23 (specimen) EST PM EST Resulting Agency Comment Spec In Lab Sanjana Delacruz MD HEMATOLOGY ORDERABLES Performing Organization Address City/[facility]/ZIP Code Phon e Number [address] PTT (10/31/2015 4:15 PM EST) P athologist Signature PTT 34 25 - 35 sec [facility] LABORATORY Comment: The recommended therapeutic range for fu ll dose, unfractionated heparin at [facility] is 80 ? 114 seconds. The use of the anti-Xa (heparin) level rather than the PTT is recommended for monitoring anticoagul ation intensity in critically ill patients receiving unfractionated hepari n by continuous IV infusion. Specimen Anatomical Collection Method Collection Time Receive d Time (Source) Location / / Volume Laterality Blood specimen 10/31/2015 4:15 PM 016 4:23 (specimen) EST PM EST Resulting Agency Comment Spec In Lab Sanjana Delacruz MD HEMATOLOGY ORDERABLES Performing Organization Address City/[facility] [place] [address] PT (10/31/2015 4:15 PM EST) P athologist Signature PT 13.3 12.0 - 15.0 [facility] LABORATORY Comment: An INR <2.0 indicates adequate procoagul ant activity for hemostasis in most patients without underlying bleeding dis orders, though the INR may not adequately reflect hemostatic capacity i n patients with liver disease and synthetic impairment. The recommended ta rget INR range for therapeutic anticoagulation is 2.0 ? 3.0 for most applications, though lower and higher ranges may be appropriate depending on c linical circumstances. INR 1.0 0.9 - 1.1 [facility] LABORATORY Specimen Anatomical Collection Method Collection Time Receive d Time (Source) Location / / Volume Laterality Blood specimen 10/31/2015 4:15 PM 016 4:23 (specimen) EST PM EST Resulting Agency Comment Spec In Lab Sanjana Delacruz MD HEMATOLOGY ORDERABLES Performing Organization Address City/[facility] Phon e Number [place] [phone] HOSPITAL LAB[address]ORY Drive Thrombosis Screen Report (10/31/2015 4:07 PM EST) Component Value Ref Test Analysis Performed At [facility] gist Range Method Time Signature Thrombosis [id number] ?Location: [address] [place] [address] The signing pathologist has (i) examined the relevant preparation(s) for the [facility] specimen(s) and (ii) rendered or confirmed the diagnosis(es) . HOSPITAL LABORATORY . ? Throm bosis Screen DIAGNOSIS Slightly decreased antithrom bin . otherwise, Negative test results for thrombotic risk factors commonly associated with thromboembolic disease. CORRECTED REPORT (see Discussion) 11/10/15 PK 11/29/15 Verified by: ? Brayan Lord MD ?Hematopathologist ?(Electronic Signature ) The attending pathologist whose signature appears on this re port has reviewed all diagnostic slides and has edited the gross and/ or microscopic portion of the report in john dering the final pathologic diagnosis. ADDITIONAL STUDIES TEST ?(REFERENCE RANGE) ?RESULT Platelet count ?(145,000-370,000/uL) ?210,000/cumm PT ?(12-15) ? 13.3 sec PTT ? (25-35) ? 34 sec Fibrinogen ?(175-450) ? 320 mg/dl Thrombin time ? (15-20) ? 25 sec APC resistance, ratio ? (>2.00) ? 2.4 Antithrombin ?(80-120%) ? 72% Protein C* ?(67-156%) ? 149% Protein S* ?(M:66-139%)( F:65-123%) ??149% Lupus anticoagulant ? (negative) ?neg Anticardiolipin antibodies ?(IgG <23 GPL) ? <23 GPL Anticardiolipin antibodies ?(IgM <11 MPL) ? <11 MPL Diob-1-eaeucuooqphi-1 antibodies ??(IgG <21 units) ? IgG <21 units Gmki-2-gsvjtnhqjfgg-1 antibodies ??(IgM <21 units) ? IgM <21 units Homocysteine, random, plasma ?(<15 umol/L) ?8 umol/L Factor V Leiden Mutation ?(normal) ?NOT DONE Prothrombin (13852 G->A) mutation (normal) ?neg ?* Functional assay for free Protein S and Protein C DISCUSSION The screening test for resis tance to activated protein C (APC) is normal, DNA assay for Factor V Leiden mutation is not indicated. Antithrombin level is margin ally low, and above that commonly seen in heterozygous deficiency (40-60%). Acquir ed deficiency may be seen in association with heparin therapy, liver disease, nephrotic sy ndrome, surgery, inflammatory bowel disease, use of oral contraceptives and other co nditions. Suggest correlation with clinical and family history, and repeat testing in 6-8 weeks if clinically ben anted Case discussed with Dr Sanjana Son MD 11/29/15. Correction Note: ??Discussion on antith rombin added. ?? There are no other changes to the text of this report. . CLINICAL INFORMATION DVT, on lovenox. Specimen (Source) Anatomical Collection Method Collection Time Re ceived Time Location / / Volume Laterality 10/31/2015 4:07 PM EST Sanjana Delacruz MD PATHOLOGY/CYTOLOGY ORDERABLE S Performing Organization Address City/State/ZIP Code Phon e Number [place] [phone] documented in this encounter Visit Diagnoses Diagnosis Pulmonary embolism, other - Primary documented in this encounter Care Teams Wind Turbine Electrical Engineer Relationship Specialty Start Date End Date Estefani Rodriguez MD PCP - General General Internal Medicine 10/31/15 [address] [place] [address] documented as of this encounter
--- OUTSIDE RECORDS SUMMARY | 2022-08-04 16:24 | XMS_ITS | Encounter Summary ---
:1975 Author Organization [facility] Address [address] [place] [address] Care Team Providers Name Role Phone Adrián Reynolds MD Primary Care Provider [phone] Encounter Details Date Type Department Care Team Description 07/07/2015 Hospital Encounter Radiology Library at [facility], [place] [address] Social History Tobacco Use Types Packs/Day [...] mouth. 0 2014 100 million cell Capsule MULTIVITAMIN/IRON/FOLIC Take by mouth 0 ACID (MULTI-VIRAL ORAL) daily. riTUXimab (Rituxan) 10 Inject into the 0 06/23/20 15 12/22/2021 mg/mL Concentrate vein. RITUXIMAB (RITUXAN IV) 0 06/23/2015 LORazepam (ATIVAN) 0.5 mg 0 06/27/2015 11/10/2015 Tablet methylPREDNISolone (MEDROL) Take 3 tablets by 90 tablet 3 1 11/10/2015 4 mg Tablet mouth daily. QUEtiapine (SEROQUEL) 100 Take 100 mg [...] 5 in am. and 5 in pm. clonazePAM (KLONOPIN) 1 mg Take 1 mg [...] mouth daily. documented as of this encounter Plan of Treatment Not on filedocumented as of this encounter Procedures Procedure Name Priority Date/Time Associated Comments Diagnosis FILM LIBRARY STORAGE Routine 07/07/2015 12:00 AM Pain Results for this ONLY ULTRASOUND EDT procedure ar e in STUDY the results section. documented in this encounter Results Film Library- Storage only Ultrasound Study (07/07/2015 12:00 AM EDT) Specimen (Source) Anatomical Location Collection Method / Collectio n Time Received Time / Laterality Volume Narrative KAMRYN - 10/14/2015 5:42 PM EST See PACS for result report. Dr Dawn [facility] IMRyan FILM LIBRARY ORDERABLES Performing Organization Address City/State/ZIP Code Phon e Number [place], [place] documented in this encounter Visit Diagnoses Diagnosis Pain Generalized pain documented in this encounter Care Teams Life Coach Relationship Specialty Start Date End Date Adrián Reynolds MD PCP - General 12/04/13 10/30/[address] [place] [address] documented as of this encounter
--- OUTSIDE RECORDS SUMMARY | 2022-08-04 16:24 | XMS_ITS | Encounter Summary ---
:1975 Author Organization [facility] [place] [address] Care Team Providers Name Role Phone Adrián Reynolds MD Primary Care Provider [phone] Encounter Details Date Type Department Care Team Description 05/05/2015 Telephone [place] [facility] [place] [place] [address] Social History Tobacco Use Types Packs/Day Years Used Date Smoking Tobacco: Former Cigarettes Smokeless Tobacco: Never Comments: Quit in 2008 Alcohol Use Standard Drinks/Week Comments No 0 (1 standard drink = 0.6 oz pure alcoho l) Sex Assigned at Date Recorded Not on file documented as of this encounter Miscellaneous Notes Telephone Encounter - Deja Ibanez RN - 05/06/2015 9:21 AM EDT I had discussed treating her with 2 infusions every 6 months vs 1 infusion every 4 months. It has been 4 months since her last infusion and since she is still flaring, I will schedule her for 1 infusion every 4 months. Jerri let her now that med infusion will contact her to schedule. Yudy will contact her for a f/u appt with me. Thanks, Rebeca I have spoken with Monique and she is on board 1 infusion every 4 months. Telephone Encounter - Deja Ibanez RN - 05/05/2015 8:47 AM EDT Monique calls this am because she is unable to make her appointment with Dr. Valerio due to GI illness for the last 3 days and she also reports an inflamed Right Elbo. Reports positive swelling andpain, denies redness or fevers. She is currently at 4 mg of Medrol and took Ibuprofen 400 mg this am after she was able to keep her food down. She will try some moist heat as well. She feels that she can manage this with current plan. She is concerned about scheduling Rituxan infusion, as she was going to discuss this with Dr. Valerio today. She would like to schedule per Dr. Valerio. documented in this encounter Plan of Treatment Not on filedocumented as of this encounter Visit Diagnoses Not on filedocumented in this encounter Care Teams Auxiliary Operator Relationship Specialty Start Date End Date Adrián Reynolds MD PCP - General 12/04/13 10/30/[address] [place] [address] documented as of this encounter
--- OUTSIDE RECORDS SUMMARY | 2022-08-04 16:24 | XMS_ITS | Encounter Summary ---
:1975 Author Organization [facility] [place] [address] Care Team Providers Name Role Phone Derrick Johnson MD Primary Care Provider [phone] Encounter Details Date Type Department Care Team Description 01/04/2016 Telephone Hematology and Oncol ogy at [facility] Lilibeth Wu, [place] [address] Social History Tobacco Use Types Packs/Day Years Used Date Smoking Tobacco: Former Cigarettes Smokeless Tobacco: Never Comments: Quit in 2008 Alcohol Use Standard Drinks/Week Comments No 0 (1 standard drink = 0.6 oz pure alcoho l) Sex Assigned at Date Recorded Not on file documented as of this encounter Miscellaneous Notes Telephone Encounter - Lilibeth Wu RN - 01/04/2016 10:28 AM EDT Request for [facility] Disability form was faxed for Dr. Son to fill out. Called and spoke with agent at the [facility] at . Relayed message that Dr. Son is gullet slitter saw patient for consultation due to a DVT. She recommends this form be forwarded to patient's P CP office to be completed. Agent appreciative and requested Dr. Son's clinic note be faxed for review. Clinic note faxed to . Lilibeth Wu, MSN, RN documented in this encounter Plan of Treatment Not on filedocumented as of this encounter Visit Diagnoses Not on filedocumented in this encounter Care Teams Scene Painter Relationship Specialty Start Date End Date Derrick Johnson MD PCP - General General Internal Medicine 12/27/15 [address] [place] [address] documented as of this encounter
--- OUTSIDE RECORDS SUMMARY | 2022-08-04 16:24 | XMS_ITS | Encounter Summary ---
:1975 Author Organization [facility] [place] [address] Care Team Providers Name Role Phone Adrián Reynolds MD Primary Care Provider [phone] Reason for Visit Reason Onset Date Comments Medication Refill 08/01/2015 Encounter Details Date Type Department Care Team Description 08/01/2015 Refill Rheumatology at [facility] Deja Ibanez, [place] [address] Social History Tobacco Use Types Packs/Day Years Used Date Smoking Tobacco: Former Cigarettes Smokeless Tobacco: Never Comments: Quit in 2008 Alcohol Use Standard Drinks/Week Comments No 0 (1 standard drink = 0.6 oz pure alcoho l) Sex Assigned at Date Recorded Not on file documented as of this encounter Miscellaneous Notes Telephone Encounter - Deja Ibanez RN - 08/01/2015 4:11 PM EST Called Tramadol to [facility] pharmacy. documented in this encounter Plan of Treatment Not on filedocumented as of this encounter Visit Diagnoses Not on filedocumented in this encounter Care Teams Rn Bsn Relationship Specialty Start Date End Date Adrián Reynolds MD PCP - General 12/04/13 10/30/15 [address] [place] [address] documented as of this encounter
--- OUTSIDE RECORDS SUMMARY | 2022-08-04 16:24 | XMS_ITS | Encounter Summary ---
:1975 Author Organization [facility] [place] [address] Care Team Providers Name Role Phone Derrick Johnson MD Primary Care Provider [phone] Encounter Details Date Type Department Care Team Description 03/22/2016 Telephone Hematology [place] [facility] [place] Wu, [place] [address] Social History Tobacco Use Types Packs/Day Years Used Date Smoking Tobacco: Former Cigarettes Smokeless Tobacco: Never Comments: Quit in 2008 Alcohol Use Standard Drinks/Week Comments No 0 (1 standard drink = 0.6 oz pure alcoho l) Sex Assigned at Date Recorded Not on file documented as of this encounter Miscellaneous Notes Telephone Encounter - Lilibeth Wu RN - 03/22/2016 12:27 PM EDT T/c to patient. Reviewed labs from 10/31 and 03/[address] Son's recommendations outlined below. Patient will reduce dose to apixaban, 2.5mg. By mouth, twice daily. T/c to PCP office. Requested Dr. Johnson renew script for apixaban going forward. A copy of Dr. Son's note and this phone note will be faxed to office for review. fax [phone] ELIJAH Vela RN Results for MONIQUE MELGAR ( ) as of 03/22/2016 12:27 Ref. Range 10/31/2015 16:15 03/13/2016 14:24 PT Latest Ref Range: 12.0 - 15.0 sec 13.3 INR Latest Ref Range: 0.9 - 1.1 1.0 PTT Latest Ref Range: 25 - 35 sec 34 Fibrinogen Latest Ref Range: 175 - 450 mg/dL 320 Thrombin Time Latest Ref Range: 15 - 20 sec 25 (H) THS Report Unknown See Comment Lupus Anticoag Latest Ref Range: Neg Neg APC Resistance Latest Ref Range: >=2.00 2.42 Antithrombin Latest Ref Range: 80 - 120 % 72 (L) 83 Protein C Act Latest Ref Range: 67 - 156 % activity 149 Protein S Act Latest Ref Range: 65 - 123 % activity 149 (H) Homocyst Tot Latest Ref Range: <=15 mcmol/L 8 B2GPI IgG Latest Ref Range: <=20 unit(s) <21 B2GPI IgM Latest Ref Range: <=20 unit(s) <21 B2GPI Interp Unknown see note Cardiolipin IgG Latest Ref Range: <=22 GPL unit(s) <23 Cardiolipin IgM Latest Ref Range: <=10 MPL unit(s) <11 Prothrombin Mutation Unknown Negative PROTHROMBIN MUT Unknown Rpt ===View-only below this line=== ----- Message ----- From: Sanjana Son MD Sent: 03/20/2016 6:03 PM To: Lilibeth Wu RN Subject: please call patient Lilibeth, She has cancelled follow-up appointment recently and I asked her to get lab drawn last week when I was away. I tried to reach her to review lab result, but not able to reach her. Can you call her to review lab result? Her repeat lab showed normal antithrombin level. No evidence of antithrombin deficiency. Currently she is on apixaban 5 mg PO BID. She has completed at least >6 months of anticoagulation. 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 Can you please also communicate this to her PCP's office and ask her PCP to refill her future apixaban? Thank you, Sanjana documented in this encounter Plan of Treatment Not on filedocumented as of this encounter Visit Diagnoses Not on filedocumented in this encounter Care Teams Sewage Treatment Plant Operator Relationship Specialty Start Date End Date Derrick Johnson MD PCP - General General Internal Medicine 12/27/15 [address] [place] [address] documented as of this encounter
--- OUTSIDE RECORDS SUMMARY | 2022-08-04 16:24 | XMS_ITS | Encounter Summary ---
:1975 [address] [facility] [place] [address] Care Team Providers Name Role Phone Derrick Johnson MD Primary Care Provider [phone] Reason for Visit Reason Onset Date Comments Other 05/16/2016 Referral Encounter Details Date Type Department Care Team Description 05/16/2016 Telephone Rheumatology at [facility] Deja Ibanez RN Other (Referral) [place] [address] Social History Tobacco Use Types Packs/Day Years Used Date Smoking Tobacco: Former Cigarettes Smokeless Tobacco: Never Comments: Quit in 2008 Alcohol Use Standard Drinks/Week Comments No 0 (1 standard drink = 0.6 oz pure alcoho l) Sex Assigned at Date Recorded Not on file documented as of this encounter Miscellaneous Notes Telephone Encounter - Deja Ibanez RN - 05/16/2016 12:18 PM EDT Monique calls to report that she has not heard from GI yet to schedule an appointment. She states Brynn advised she call Rheumatology if she has not heard from GI by the beginning of this week. documented in this encounter Plan of Treatment Not on filedocumented as of this encounter Visit Diagnoses Not on filedocumented in this encounter Care Teams Certified Hyperbaric Technician Relationship Specialty Start Date End Date Derrick Johnson MD PCP - General General Internal Medicine 12/27/15 [address] [place] [address] documented as of this encounter
--- OUTSIDE RECORDS SUMMARY | 2022-08-04 16:24 | XMS_ITS | Encounter Summary ---
:1975 Author Organization [facility] Address [address] [place] [address] Care Team Providers Name Role Phone Adrián Reynolds MD Primary Care Provider [phone] Encounter Details Date Type Department Care Team Description 10/12/2015 Hospital Encounter Radiology Library at [facility], [place] [address] Social History Tobacco Use Types Packs/Day [...] Concentrate vein. RITUXIMAB (RITUXAN IV) 0 06/23/2015 enoxaparin (LOVENOX) 100 1 mg/kg/dose. 0 10/03/19 16 11/21/2015 mg/mL Syringe LORazepam (ATIVAN) 0.5 mg 0 06/27/2015 11/10/2015 Tablet PARoxetine (PAXIL) 20 mg 0 10/05/2015 03/13/2016 Tablet SUMAtriptan (IMITREX) 50 mg 0 09/14/19 16 12/29/2018 Tablet venlafaxine (EFFEXOR-XR) 0 08/29/2015 11/10/2015 150 mg Capsule, Sust. Release 24 hr traMADol (ULTRAM) 50 mg Take 1-2 tablets 240 tablet 3 201411/10/2015 Tablet by mouth every 6 hours as needed for Pain. methylPREDNISolone (MEDROL) Take 3 tablets by 90 tablet 3 1 11/10/2015 4 mg Tablet mouth daily. QUEtiapine (SEROQUEL) 100 Take 100 mg by 0 07/24/2017 mg Tablet mouth. Takes 100 mg a.a. And 300 mg night L-Norgest&E Estradiol-E Take 1 tablet by 90 tablet 3 201410/31/2015 Estrad 0.15 mg-30 mcg mouth daily. (84)/10 mcg (7) Tablet, Dose Pack, 3 Months diclofenac 1 % Gel Apply 2 g [...] Associated Diagnosis Comme nts FILM LIBRARY Routine 10/12/2015 12:05 AM Pain Results for this STORAGE ONLY CT EST procedure ar e in CHEST the results section. documented in this encounter Results Film Library- Storage Only CT Chest (10/12/2015 12:05 AM EST) Specimen (Source) Anatomical Location Collection Method / Collectio n Time Received Time / Laterality Volume Narrative DH RAD - 10/14/2015 5:38 PM EST See PACS for result report. Dr Dawn [facility] IMG FILM LIBRARY ORDERABLES Performing Organization Address City/State/ZIP Code [facility] e Number [place], [place] documented in this encounter Visit Diagnoses Diagnosis Pain Generalized pain documented in this encounter Care Teams [employer] Architect Relationship Specialty Start Date End Date Adrián Reynolds MD PCP - General 12/04/13 10/30/[address] [place] [address] documented as of this encounter
--- OUTSIDE RECORDS SUMMARY | 2022-08-04 16:24 | XMS_ITS | Encounter Summary ---
:1975 Author Organization [facility] Address [address] [place] [address] Care Team Providers Name Role Phone Derrick Johnson MD Primary Care Provider [phone] Encounter Details Date Type Department Care Team Description 12/28/2015 Clinical Support Endocrinology at [facility] C Nurse, Adrenal insufficiency [address] [place] [address] Social History Tobacco Use Types Packs/Day Years Used Date Smoking Tobacco: Former Cigarettes Smokeless Tobacco: Never Comments: Quit in 2008 Alcohol Use Standard Drinks/Week Comments No 0 (1 standard drink = 0.6 oz pure alcoho l) Sex Assigned at Date Recorded Not on file documented as of this encounter Progress Notes Charisse Kirkpatrick LPN - 12/28/2015 9:24 AM EDT Cosyntropin 0.25 mg administered IM in left deltoid per order. Site negative before and after injection. Patient aware to return to lab in approx 1 hr for level draw. documented in this encounter Plan of Treatment Not on filedocumented as of this encounter Visit Diagnoses Diagnosis Adrenal insufficiency Glucocorticoid deficiency documented in this encounter Administered Medications Inactive Administered Medications - up to 3 most recent administrations Medication Order MAR Action Action Date Dose Rate Site cosyntropin (CORTROSYN) Given 12/28/2015 9:00 AM EDT 0.25 mg Left Arm injection 0.25 mg 0.25 mg, Intravenous, ONCE, 1 dose, On Sat12/28/15 at 0945, Routine documented in this encounter Care Teams Clay Press Operator Relationship Specialty Start Date End Date Derrick Johnson MD PCP - General General Internal Medicine 12/27/15 [address] [place] [address] documented as of this encounter
--- OUTSIDE RECORDS SUMMARY | 2022-08-04 16:24 | XMS_ITS | Encounter Summary ---
:1975 Author Organization [facility] [place] [address] Care Team Providers Name Role Phone Derrick Johnson MD Primary Care Provider [phone] Reason for Visit Reason Onset Date Comments Other 05/25/2016 Encounter Details Date Type Department Care Team Description 05/25/2016 Telephone Rheumatology at [facility] [place] [address] Social History Tobacco Use Types Packs/Day Years Used Date Smoking Tobacco: Former Cigarettes Smokeless Tobacco: Never Comments: Quit in 2008 Alcohol Use Standard Drinks/Week Comments No 0 (1 standard drink = 0.6 oz pure alcoho l) Sex Assigned at Date Recorded Not on file documented as of this encounter Miscellaneous Notes Telephone Encounter - Deja Ibanez RN - 05/28/2016 8:44 AM EDT Faxed GI referral to Dr. [place] Avery at request of Dr. Valerio. Telephone Encounter - Deja Ibanez RN - 05/25/2016 4:40 PM EDT Monique was seen at [facility] and Abdominal CT Scan was done with negative results. She did receive another name for a GI doctor closer to her home. She would like us to refer her to [facility] Avery [phone]. Monique has started Medrol Dose Pack. documented in this encounter Plan of Treatment Not on filedocumented as of this encounter Visit Diagnoses Not on filedocumented in this encounter Care Teams Educational Therapist Relationship Specialty Start Date End Date Derrick Johnson MD PCP - General General Internal Medicine 12/27/15 [address] [place] [address] documented as of this encounter
--- OUTSIDE RECORDS SUMMARY | 2022-08-04 16:24 | XMS_ITS | Encounter Summary ---
:1975 Author Organization [facility] [place] [address] Care Team Providers Name Role Phone Derrick Johnson MD Primary Care Provider [phone] Reason for Visit Reason Onset Date Comments Other 06/13/2016 Letter Encounter Details Date Type Department Care Team Description 06/13/2016 Telephone Rheumatology at [facility] Deja Ibanez RN Other (Letter) [place] [address] Social History Tobacco Use Types Packs/Day Years Used Date Smoking Tobacco: Former Cigarettes Smokeless Tobacco: Never Comments: Quit in 2008 Alcohol Use Standard Drinks/Week Comments No 0 (1 standard drink = 0.6 oz pure alcoho l) Sex Assigned at Date Recorded Not on file documented as of this encounter Miscellaneous Notes Telephone Encounter - Deja Ibanez RN - 06/13/2016 9:05 AM EDT Monique calls today wanting to know if we can write a letter for her to be released from Jury duty due to her illness. Will provide a letter and fax to [place] [address] at [phone]. documented in this encounter Plan of Treatment Not on filedocumented as of this encounter Visit Diagnoses Not on filedocumented in this encounter Care Teams Uke Driver Relationship Specialty Start Date End Date Derrick Johnson MD PCP - General General Internal Medicine 12/27/15 [address] [place] [address] documented as of this encounter
--- OUTSIDE RECORDS SUMMARY | 2022-08-04 16:24 | XMS_ITS | Encounter Summary ---
:1975 Author Organization [facility] [place] [address] Care Team Providers Name Role Phone Derrick Johnson MD Primary Care Provider [phone] Reason for Visit Reason Comments Hirsutism Consultation (Routine) - Closed Specialty Diagnoses / Procedures Referred By Contact Refer red To Contact Endocrinology Diagnoses Pt of RA on chronic steroids being tapered, has fatigue, hypotension, dizziness, ? glucocorticoid deficiency, please evaluate may need a low ACTM stimulation test. Estefani Rodriguez MD [facility] [address] [place] [id number] Referral ID Status Reason Start Date Expiration Date Visits V isits Requested Authorized [id number] Closed Evaluate and 12/19/2015 12/18/2016 1 1 [facility] Encounter Details Date Type Department Care Team Description 12/27/2015 Office Visit Endocrinology at [facility] C Juan Jose Miles MD [facility] [place] [address] Age related [facility] Shalonda Petty MD [facility] [place] [address] [place] [address] Social History Tobacco Use Types Packs/Day Years Used Date Smoking Tobacco: Former Cigarettes Smokeless Tobacco: Never Comments: Quit in 2008 Alcohol Use Standard Drinks/Week Comments No 0 (1 standard drink = 0.6 oz pure alcoho l) Sex Assigned at Date Recorded Not on file documented as of this encounter Last Filed Vital Signs Vital Sign Reading Time Taken Comments Blood Pressure 134/81 12/27/2015 8:54 AM EDT Pulse 91 12/27/2015 8:54 AM EDT Temperature - - Respiratory Rate - - Oxygen Saturation - - Inhaled Oxygen Concentration - - Weight 103 kg (227 lb) 12/27/2015 8:54 AM EDT Height 155.2 cm (5' 1.1) 12/27/2015 8:54 AM EDT Body Mass Index 42.75 12/27/2015 8:54 AM EDT documented in this encounter Progress Notes Juan Jose Miles MD - 01/03/2016 6:51 PM EDT I saw this patient with Dr petty . I reviewed the bishop portions of the history and physical exam, and reviewed pertinent lab data. I answered all patient questions. I was involved in all medical decision making and agree with this plan. Shlaonda Petty MD - 12/28/2015 1:51 PM EDT Results for MONIQUE MELGAR ( ) as of 12/28/2015 13:49 Ref. Range 12/28/2015 08:52 12/28/2015 10:10 Cortisol Latest Units: mcg/dL 19.9 29.3 Monique had a successful stim test. Baseline and post stim cortisol levels were normal. Will hold off hydrocortisone Shalonda Petty MD - 12/26/2015 2:51 PM EDT ENDOCRINOLOGY OUTPATIENT CONSULTATION Patient Name: Monique Melgar Date of Consultation: 12/26/2015 Consulting Physician: Dr. Johnson Reason for Consultation: rule out adrenal insufficiency History of Presenting Illness: This is a 40 y o F with PMH of RA on immunosuppressive therapy with biologics and steroids here for concern to r/o adrenal insufficiency. Mrs. Melgar was diagnosed with seropositive RA in 2006. Previously on HCQ, MTX, and enbrel. Most recently Rituxan 1000 mg every 4 months. She has non erosive arthritis as per rheum notes. Since her diagnosis in 2006, she has been on chronic steroids for much of the past 5 years. Most recently as per clinic note in 11/10/2015 her medrol was reduced from 6->4 mg with a slow taper. However most recently she had severe joint pains after a recent bout of viral gastroenteritis concerning for a RA flare, and her steroids were upped back to 12 mg medrol, which she has been taking for the past 3 days. She was referred to us since she has had at least 2 syncopal episodes and multiple pre-syncopal episodes over the past year, not particularly related in timing to the weaning of her steroids. She describes hypotension ( systolic of 90's), dizzy spells with tunnel vision associated with room spinning, difficulty in concentrating, and nausea without vomiting during the 2 syncopal episodes. Her maintenance dose of solumedrol previously was 6 mg daily ( 5-10 mg). Her PCP ordered 2 MRI's- the initial one suggested a pituitary cyst which was not visualized on f/u exam. ( scanned into our system). Has chronic headaches. Has regular menses. Denies polyuria, loss ofperipheral vision, galactorrhea, hypoglycemia, sexual dysfunction, temp intolerance or constipation. No hyperglycemia, h/o DM, no previous DEXA, no h/o HTN, Hypokalemia, falls or fractures. Easy bruising + But is on eliquis. Has had weight gain- Weight 227 lbs BMI- 42.8 ( 100 lbs since diagnosis). 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 No abnormal sweating or flushing. No galactorrhea or breast tenderness. Normal sexual desire. Integument: No excessive hair growth, balding, acne or oily skin. No ulcerations. No easily bruising. Neurological: No headache or weakness. No seizure, fainting or dizziness Eyes: No recent vision changes ENT: No dysphagia, dental issues Cardiovascular: No chest pain or palpitations Respiratory: No cough, wheezing, shortness of breath GI: Normal appetite. No nausea, vomiting, diarrhea, constipation : No frequent urinary tract infections or polyuria Musculoskeletal: No joint aches, muscle pain. No back pain Psychiatric: No depression, anxiety Past Medical History: Patient Active Problem List Diagnosis Code ??? Rheumatoid arthritis M06.9 ??? Anxiety F41.9 ??? Depression F32.9 ??? AMA (advanced maternal age) multigravida 35+ O09.529 ??? Obesity E66.9 ??? Pneumatosis coli K63.89 ??? Pulmonary embolism I26.99 Current Medications: ??? ALPRAZolam (XANAX) 1 mg Tablet ??? ferrous sulfate 325 mg (65 mg iron) Tablet ??? methylPREDNISolone (MEDROL) 4 mg Tablet ??? PARoxetine (PAXIL) 20 mg Tablet ??? prazosin (MINIPRESS) 5 mg Capsule ??? acidophilus-pectin, citrus 100 million cell-10 mg Capsule ??? QUEtiapine (SEROQUEL) 100 mg Tablet ??? diclofenac 1 % Gel ??? methotrexate 2.5 mg Tablet ??? MULTIVITAMIN/IRON/FOLIC ACID (MULTI-VIRAL ORAL) ??? folic acid (FOLVITE) 1 mg tablet ??? traMADol (ULTRAM) 50 mg Tablet ??? SUMAtriptan (IMITREX) 50 mg Tablet ??? acetaminophen (TYLENOL) 500 mg Tablet Social History: Alcohol use: no Cigarette use: no Illicit drug use: no Homemaker Family History: No adrenal disorders Thyroid No osteoporosis Allergies: Allergies Allergen Reactions ??? Latex, Natural Rubber Other reaction(s): Latex, Natural Rubber ??? Sulfa (Sulfonamide Antibiotics) Anaphylaxis Other reaction(s): Wheezing ??? Tape, Permeable Adhesive Vitals Last value Range last 24 hrs Temperature Heart Rate Blood Pressure Respiratory Rate SpO2 Physical Exam: General appearance: pleasant female pt, appears stated age, not in distress HEENT: anicteric, EOMI, BRITTNI, no lymphadenopathy, moist mucus membranes.+ Dorsal fat pad No acanthosis CVS: +S1, S2. no murmurs, RRR Pulm: clear to auscultation BL Abd: soft, non-tender, non-distended, +bowel sounds, no rebound or guarding. + abdominal obesity. Striae whitish Extremities: b/l synovitis of both hands, ? Early swan neck deformity left 4 th PCP Mild kyphosis Spine: no spinal tenderness Skin: no lesions, no violaceous striae, no acanthosis nigricans, no skin tags/freckling Thyroid gland: normal consistency no goiter Pertinent Laboratory Findings: Results for MONIQUE MELGAR ( ) as of 12/27/2015 10:07 Ref. Range 05/26/2015 11:43 Sodium Latest Ref Range: 135-145 mmol/L 141 Potassium Latest Ref Range: 3.5-5.0 mmol/L 4.2 Chloride Latest Ref Range: 98-107 mmol/L 105 CO2 Latest Ref Range: 22-31 mmol/L 25 Anion Gap Latest Ref Range: 5-15 mmol/L 11 BUN Latest Ref Range: 8-18 mg/dL 9 Creatinine Latest Ref Range: 0.70-1.20 mg/dL 0.71 Assessment: This is a 40 y.o. 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 Monique has had assistant terminal manager steroid use ( close to 20 mg of prednisone for >3 months) and hence we would most likely expect her HPA axis to be suppressed and being at risk of secondary adrenal insufficiency. She has been on doses of methy pred of 16 mg ( roughly= 20 mg prednisone) which is supra-physiologic ( normal prednisone close to 7.5 mg qd). Hence it is conceivable that when her steroid dose is lowered she could experience symptoms c/w partial adrenal insufficiency. To test this hypothesis wewill plan to conduct an ACTH stim test before her AM solumedrol dosing. If she fails to stim to a cortisol > 18, she may benefit from physiologic dose Hydrocortisone replacement 10, 5 and 5 mg dailyfor 3 months. If she has improvement in symptoms, this may be continued. If no improvement we would discontinue. This would also allow for titration down of her solumedrol as tolerated by Rheum. Per National osteoporosis guidelines, pt is a candidate for BMD testing to r/o osteoporosis. Plan: - f/u - cosyntropin test - f/u DEXA scan - needs fasting glucose, lipids checked yearly Thank you for the consult. This case has been discussed with Dr. Miles of Endocrinology. Shalonda Petty MD Endocrinology Fellow Pager- [phone] documented in this encounter Plan of Treatment Not on filedocumented as of this encounter Results Cortisol (12/28/2015 8:52 AM EDT) P athologist Signature Cortisol 19.9 mcg/dL [facility] Comment: Reference ranges: ??AM (7-10am): ??6.2-19.4 mcg/dL ??PM (4-8pm): ??2.3-12.3 mcg/dL Specimen Anatomical Collection Method Collection Time Receive d Time (Source) Location / / Volume Laterality Blood specimen 12/28/2015 8:52 AM 016 9:04 (specimen) EDT AM EDT Resulting Agency Comment Spec In Lab Juan Jose Miles MD CHEMISTRY ORDERABLES Performing Organization Address City/State/[place] [address] documented in this encounter Visit Diagnoses Diagnosis Age related osteoporosis Senile osteoporosis documented in this encounter Care Teams Archival Records Clerk Relationship Specialty Start Date End Date Derrick Johnson MD PCP - General General Internal Medicine 12/27/15 8 [address] [place] [address] documented as of this encounter
--- OUTSIDE RECORDS SUMMARY | 2022-08-04 16:24 | XMS_ITS | Encounter Summary ---
:1975 Author Organization [facility] [place] [address] Care Team Providers Name Role Phone Adrián Reynolds MD Primary Care Provider [phone] Encounter Details Date Type Department Care Team Description 04/15/2015 Telephone Rheumatology at [facility] Rebeca Valerio, [facility] [place] [address] [facility] [phone] RHEUMATOLOGY DEP [place] [id number] (Wo rk) Social History Tobacco Use Types Packs/Day Years Used Date Smoking Tobacco: Former Cigarettes Smokeless Tobacco: Never Comments: Quit in 2008 Alcohol Use Standard Drinks/Week Comments No 0 (1 standard drink = 0.6 oz pure alcoho l) Sex Assigned at Date Recorded Not on file documented as of this encounter Miscellaneous Notes Telephone Encounter - Dasha Zapata MD - 04/15/2015 5:13 PM EDT 39 y/o female with 1. RA (RF+, CCP+) on rituxan, MTX and medrol. 2. PTSD, depression and anxiety 3. 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 No shooting/radiating pains. No trauma. Low grade fevers and diaphoresis (+) Feels pain is not typical of her RA flare. Patient is on immunosuppressants for RA Plan: 1.Recommended ED visit. Concerns for psoas abscess (fever, diaphoresis, deep achy pain, h/o abdominal surgery). Believe patient would benefit from a thorough examination and vitals check and further evaluation as indicated. 2. Discussed possible differentials including infectious etiology. Patient admits to understand concerns and need for ED visit. DASHA ZAPATA MD Telephone Encounter - Carrol Evans RN - 04/15/2015 4:05 PM EDT Md field professional Dr. Zapata made aware of current patient status. Requested he contact patient and determineneed to go to ED due to extensive medical history and recent abdominal/colon surgery. Telephone Encounter - Chelsea Boles LPN - 04/15/2015 1:25 PM EDT Pt is currently on a slow taper of medrol. She has been taking 4 mg every day for the past 3 weeks. Today pt experienced increased low back and left hip pain that started this morning. Pain is 9/10; sharp, aching. Pt reports that this is an RA flare-up. Pt has been applying heat and ice and that has made the pain a little more tolerable, but if I movethe pain is excruciating. Pt discusses that in the past her medrol dose has been increased to alleviate an RA flare-up, however, she is trying to taper off of the medrol and so would like to know if there could be another option for her. In review of pt's chart it is noted that pt has taken dilaudid, as well as, oxycodone for pain/post-op in 2013. Denies: Numbness, tingling and/or progressive weakness in extremities, swelling and/or redness, recent trauma to affected area, and fever. Msg forwarded to Aleena Jones NP, in Dr. Oquendo's absence. documented in this encounter Plan of Treatment Not on filedocumented as of this encounter Visit Diagnoses Not on filedocumented in this encounter Care Teams Mangle Tender Relationship Specialty Start Date End Date Adrián Reynolds MD PCP - General 12/04/13 10/30/[address] [place] [address] documented as of this encounter
--- OUTSIDE RECORDS SUMMARY | 2022-08-04 16:24 | XMS_ITS | Encounter Summary ---
:1975 Author Organization [facility] [place] [address] Care Team Providers Name Role Phone Estefani Rodriguez MD Primary Care Provider Encounter Details Date Type Department Care Team Description 11/10/2015 Office Visit Rheumatology at [facility] Iman Rheumatoid arthritis(714.0); [facility] Rebeca Reeder DO Postoperative pulmonary embolism, [place] [address] CENTER [phone] RHEUMAT[address]PT. [place] [address] Social History Tobacco Use Types Packs/Day Years Used Date Smoking Tobacco: Former Cigarettes Smokeless Tobacco: Never Comments: Quit in 2008 Alcohol Use Standard Drinks/Week Comments No 0 (1 standard drink = 0.6 oz pure alcoho l) Sex Assigned at Date Recorded Not on file documented as of this encounter Progress Notes Rebeca Valerio DO - 11/10/2015 3:30 PM EST Outpatient Rheumatology Followup Problem List 1. RF+, CCP+ RA. -Diagnosed with seropositive RA in 2006. Was following with a choker setter at [facility]. Her RA control before was good on HCQ, MTX, and enbrel. She had very few flares on this combo. Prior xrays per patient showed no erosions. Unfortunately also got on this combination (her OCP was recalled b/c it was packaged improperly) and her prior choker setter suggested aborting the . The patient opted not to do that and had a healthy baby boy. She had a placental abruptionand emergency . Treated then with MTX, and enbrel. Then humira. Most recently Rituxan 1000 mg every 4 months. 2. Pneumatosis intestinalis Right hemicolectomy January 2014, ileostomy, reversal July 2014. She now has chronic diarrhea. Within 15 minutes of eating she needs to go to the bathroom 3. PTSD, depression and anxiety 4. Fibromyalgia Interim History: Since last being seen here in May she developed new pulmonary embolism x 2. Now on lovenox instead of warfarin. Was seen here in Hematology and had a workup for hypercoagulable states. She is taking medrol 8 mg daily.she had her next rituxan infusion today which went well. Her pain was really starting to escalate. This infusion was overdue because of her other medical issues that came up. She continues to take tramadol. PMH: seropositive ra dX in 2006, PTSD, fibromyalgia, 3 c-sections, cholecystectomy, kidney stones, migraines, pneumatosis coli s/p right hemicolectomy. 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 Wrists and elbows seem OK. Knees are not swollen but are tender in the medial joint lines b/l Assessment and Plan: 1. RF+, CCP+ RA 2. PTSD, depression and anxiety 3. Pulmonary embolism x 2 We discussed her methotrexate. She does not feel like it is helping at all. I think it is reasonableto take a break and stop it along with folic acid. We will see how she does with rituxan with medrol. i asked her to try decreasing medrol to 6 mg in about 2 weeks and to taper slowly - by every 4-6 weeks if she can. If she needs another medication I would start arava. We discussed that we should avoid actemra and xeljanz b/c of the risk of spontaneous bowel rupture. I will see her back in 4 months on the same day as her next rituxan infusion. documented in this encounter Plan of Treatment Not on filedocumented as of this encounter Visit Diagnoses Diagnosis Rheumatoid arthritis(714.0) Rheumatoid arthritis Postoperative pulmonary embolism, initia l encounter documented in this encounter Care Teams Silk Weaver Relationship Specialty Start Date End Date Estefani Rodriguez MD PCP - General General Internal Medicine 10/31/15 [address] [place] [address] documented as of this encounter
--- OUTSIDE RECORDS SUMMARY | 2022-08-04 16:24 | XMS_ITS | Encounter Summary ---
:1975 Author Organization [facility] [place] [address] Care Team Providers Name Role Phone Derrick Johnson MD Primary Care Provider [phone] Encounter Details Date Type Department Care Team Description 03/13/2016 Hospital Encounter Hematology and Other p [place] [facility] without acute [facility] [place] [address] Social History Tobacco Use Types Packs/Day [...] Tablet daily. RITUXIMAB (RITUXAN IV) 0 06/23/2015 ALPRAZolam (XANAX) 1 mg Take 1 mg by 0 07/24/2017 Tablet mouth 2 times daily. Take 1 mg by mouth 2 times daily ferrous sulfate 325 mg (65 Take 325 mg by 0 07/24/2017 mg iron) Tablet mouth daily (with breakfast). traMADol (ULTRAM) 50 mg Take 1-2 tablets 240 tablet 5 201506/11/2016 Tablet by mouth every 6 hours as needed for Pain. methylPREDNISolone (MEDROL) Take 2 tablets by 180 tablet 3 0 11/10/2015 05/10/2016 4 mg Tablet mouth daily. SUMAtriptan (IMITREX) 50 mg 0 09/14/19 16 12/29/2018 Tablet acidophilus-pectin, citrus Take by mouth. 0 07/24/2017 100 million cell-10 mg Capsule QUEtiapine (SEROQUEL) 100 Take 100 mg by 0 07/24/2017 mg Tablet mouth. Takes 100 mg a.a. And 300 mg night diclofenac 1 % Gel Apply 2 g 1 Tube 3 01/20/20152016 topically 4 times daily. methotrexate 2.5 mg Tablet Take 10 tablets 120 tablet 3 10/1105/10/2016 by mouth once a week. Split dose 5 in am. and 5 in pm. acetaminophen (TYLENOL) 500 Take 1,000 mg by 0 07/24/2017 mg Tablet mouth every 6 hours as needed for Pain. folic acid (FOLVITE) 1 mg Take 1 tablet by 90 tablet 3 12/0905/10/2016 tablet mouth daily. documented as of this encounter Plan of Treatment Not on filedocumented as of this encounter Procedures Procedure Name Priority Date/Time Associated Diagnosis Comme nts ANTITHROMBIN Routine 03/13/2016 2:24 PM Other pulmonary Result s for this EDT embolism without acute proce dure are in cor pulmonale, the results unspecified chronicity secti on. documented in this encounter Results Antithrombin (03/13/2016 2:24 PM EDT) P athologist Signature Antithrombin 83 80 - 120 % [facility] Specimen Anatomical Collection Method Collection Time Receive d Time (Source) Location / / Volume Laterality Blood specimen 03/13/2016 2:24 PM 016 2:31 (specimen) EDT PM EDT Resulting Agency Comment Spec In Lab Sanjana Delacruz MD HEMATOLOGY ORDERABLES Performing Organization Address City/State/[place] [address] documented in this encounter Visit Diagnoses Diagnosis Other pulmonary embolism without acute c or pulmonale, unspecified chronicity documented in this encounter Care Teams Call Center Director Relationship Specialty Start Date End Date Derrick Johnson MD PCP - General General Internal Medicine 12/27/15 [address] [place] [address] documented as of this encounter
--- OUTSIDE RECORDS SUMMARY | 2022-08-04 16:24 | XMS_ITS | Encounter Summary ---
:1975 Author Organization [facility] [address] Care Team Providers Name Role Phone Derrick Johnson MD Primary Care Provider [phone] Reason for Visit Reason Comments IV Medication High Dollar Medication (Routine) - Specialty Diagnoses / Procedures Referred By Contact Refer red To Contact Med Infusion Diagnoses Rheumatoid arthritis involving both hands, unspecified rheumatoid factor presence Rebeca Valerio, [facility] Med Infusion 3d Procedures TC RITUXIMAB, 100MG, INJECTION (RITUXAN) DO [facility] [place] [address] [place] [address] Referral ID Status Reason Start Date Expiration Date Visits V isits Requested Authorized [id number] Consult, 09/29/2015 07/18/2017 8 8 Test & Treat Encounter Details Date Type Department Care Team Description 07/18/2016 Hospital Encounter Med Infusion at [facility] Rheumatoid arthritis [facility] involving hand [place] [address] factor, unspecified [phone] laterality Social History Tobacco Use Types Packs/Day Years Used Date Smoking Tobacco: Former Cigarettes Smokeless Tobacco: Never Comments: Quit in 2008 Alcohol Use Standard Drinks/Week Comments No 0 (1 standard drink = 0.6 oz pure alcoho l) Sex Assigned at Date Recorded Not on file documented as of this encounter Last Filed Vital Signs Vital Sign Reading Time Taken Comments Blood Pressure 124/76 07/18/2016 9:31 AM EST Pulse 84 07/18/2016 9:31 AM EST Temperature 36.9 ??C (98.4 ??F) 07/18/2016 9:31 AM EST Respiratory Rate 16 07/18/2016 9:31 AM EST Oxygen Saturation 98% 07/18/2016 9:31 AM EST Inhaled Oxygen Concentration - - Weight - - Height - - Body Mass Index - - documented in this encounter Medications at Time of Discharge Medication Sig Dispensed Refills Start Date End Date Lactobacillus Take by mouth. 0 06/23/2015 Acidophilus 100 million cell Capsule MULTIVITAMIN/IRON/FOLIC Take by mouth daily. 0 ACID (MULTI-VIRAL ORAL) riTUXimab (Rituxan) 10 Inject into the 0 06/23/20 15 12/22/2021 mg/mL Concentrate vein. CHOLECALCIFEROL, VITAMIN Take 400 Units by 0 07/24/2017 D3, (VITAMIN D3 ORAL) mouth. traMADol (ULTRAM) 50 mg Take 1-2 tablets by 240 tablet 3 08/201610/29/2016 Tablet mouth every 6 hours as needed for Pain. prazosin (MINIPRESS) 5 nightly. Reported on 0 01/24/2017 mg Capsule 01/24/2017 apixaban (ELIQUIS) 5 mg 2.5 mg 2 times 0 11/25/19 16 12/29/2018 Tablet daily. RITUXIMAB (RITUXAN IV) 0 06/23/2015 ALPRAZolam (XANAX) 1 mg Take 1 mg by mouth 2 0 07/24/2017 Tablet times daily. Take 1 mg by mouth 2 times daily ferrous sulfate 325 mg Take 325 mg by mouth 0 07/24/2017 (65 mg iron) Tablet daily (with breakfast). SUMAtriptan (IMITREX) 50 0 09/14/2015 12/29/2018 mg Tablet acidophilus-pectin, Take by mouth. 0 1 09/23/2016 citrus 100 million cell-10 mg Capsule QUEtiapine (SEROQUEL) Take 100 mg by 0 07/24/2017 100 mg Tablet mouth. Takes 100 mg a.a. And 300 mg night diclofenac 1 % Gel Apply 2 g topically 1 Tube 3 01/21/20 15 07/24/2017 4 times daily. acetaminophen (TYLENOL) Take 1,000 mg by 0 07/24/2017 500 mg Tablet mouth every 6 hours as needed for Pain. documented as of this encounter Progress Notes Teresa Boston RN - 07/18/2016 9:33 AM EST Patient Name: Monique Zamora Patient Age: 41 y.o. Birthdate: 1975 Admit date: 07/18/2016 Attending Physician: No att. providers found INFUSION THERAPY ADMINISTRATION NOTES DIAGNOSIS: Rheumatoid Arthritis REASON FOR VISIT: Rituxan day # 1 SUBJECTIVE: Offers no complaints. OBJECTIVE: Last dose received in March VITALS: BP 124/76 (Patient Position: Sitting) Pulse 84 Temp 36.9 ??C (98.4 ??F) (Oral) Resp 16 SpO2 98% IF PAIN >5, INTERVENTION AND EFFECTIVENESS: na IV ACCESS: Peripheral IV Line - Single Lumen 07/18/16 0925 median cubital vein (antecubital fossa), right 22 gauge (Active) HYDRATION: NS @ KVO 0925 off with infusion ANTIEMETICS/PREMEDS, Benadryl 25 mg IV@ 0925 to 0935 Patient identification and orders checked against actual dose given at bedside by Isabell Boston RN TREATMENT Rituxan 1000 mg IV Administration times: See NOV 08 dosing schedule used. REACTIONS None. ASSESSMENT: Tolerated infusion well. PLAN: Return to clinic as scheduled. documented in this encounter Plan of Treatment Not on filedocumented as of this encounter Visit Diagnoses Diagnosis Rheumatoid arthritis involving hand with positive rheumatoid factor, unspecified laterality documented in this encounter Administered Medications Inactive Administered Medications - up to 3 most recent administrations Medication Order Nov Action Date Dose Rate Site diphenhydrAMINE (BENADRYL) Given 07/18/2016 9:25 AM EST 25 mg injection 25 mg 25 mg, Intravenous, ONCE, 1 dose, On Sat07/18/16 at 0930, FIRST INFUSION Upon arrival prior to rituximab., Outpatient Transfusion, Routine riTUXimab (RITUXAN) 1,000 mg in sodium New Bag 07/18/2016 9:50 AM EST 1,000 mg chloride 0.9% 500 mL infusion 1,000 mg, Intravenous, ONCE, 1 dose, On Sat07/18/16 at 0930, FIRST INFUSION Administer intravenously at [...] diagnosis documented in this encounter Care Teams Him Specialists Relationship Specialty Start Date End Date Derrick Johnson MD PCP - General General Internal Medicine 12/27/15 [address] [place] [address] documented as of this encounter
--- OUTSIDE RECORDS SUMMARY | 2022-08-04 16:24 | XMS_ITS | Encounter Summary ---
:1975 Author Organization [facility] [place] [address] Care Team Providers Name Role Phone Derrick Johnson MD Primary Care Provider [phone] Encounter Details Date Type Department Care Team Description 12/28/2015 Orders Only Endocrinology at [facility] Shalonda Kim, Adrenal insufficiency [facility] [place] [address] [place] [address] [place] [address] Social History Tobacco Use Types Packs/Day Years Used Date Smoking Tobacco: Former Cigarettes Smokeless Tobacco: Never Comments: Quit in 2008 Alcohol Use Standard Drinks/Week Comments No 0 (1 standard drink = 0.6 oz pure alcoho l) Sex Assigned at Date Recorded Not on file documented as of this encounter Plan of Treatment Not on filedocumented as of this encounter Results Cortisol (12/28/2015 10:10 AM EDT) P athologist Signature Cortisol 29.3 mcg/dL [facility] Comment: Reference ranges: ??AM (7-10am): ??6.2-19.4 mcg/dL ??PM (4-8pm): ??2.3-12.3 mcg/dL Specimen Anatomical Collection Method Collection Time Receive d Time (Source) Location / / Volume Laterality Blood specimen 12/28/2015 10:10 6 (specimen) AM EDT 10:23 AM EDT Resulting Agency Comment Spec In Lab Juan Jose Miles MD CHEMISTRY ORDERABLES Performing Organization Address City/State/ZIP Code Phon e Number [place] [id number] documented in this encounter Visit Diagnoses Diagnosis Adrenal insufficiency Glucocorticoid deficiency documented in this encounter Care Teams Printing Mechanist Relationship Specialty Start Date End Date eDrrick Johnson MD PCP - General General Internal Medicine 12/27/15 [address] [place] [address] documented as of this encounter
--- OUTSIDE RECORDS SUMMARY | 2022-08-04 16:24 | XMS_ITS | Encounter Summary ---
:1975 Author Organization [facility] [place] [address] Care Team Providers Name Role Phone Derrick Johnson MD Primary Care Provider [phone] Reason for Referral High Dollar Medication (Routine) - Closed Specialty Diagnoses / Procedures Referred By Contact Refer red To Contact Med Infusion Diagnoses Rheumatoid arthritis involving hand with positive rheumatoid factor, unspecified laterality Rebeca Valerio, [facility] Med Infusion 3d Procedures TC RITUXIMAB, 100MG, INJECTION (RITUXAN) DO [facility] [place] [address] [place] [address] Referral ID Status Reason Start Date Expiration Date Visits V isits Requested Authorized [id number] Closed Consult, 07/18/2016 07/18/2017 1 1 Test & Treat Encounter Details Date Type Department Care Team Description 07/13/2016 Orders Only Rheumatology at [facility] Rheumatoid arthritis [facility] Rebeca Reeder DO involving hand with Drive [facility] [place] [address] [address] [address] factor, unspecified [phone] [address] laterality [place], [place] [address] Social History Tobacco Use Types Packs/Day Years Used Date Smoking Tobacco: Former Cigarettes Smokeless Tobacco: Never Comments: Quit in 2008 Alcohol Use Standard Drinks/Week Comments No 0 (1 standard drink = 0.6 oz pure alcoho l) Sex Assigned at Date Recorded Not on file documented as of this encounter Plan of Treatment Scheduled Referrals Name Type Priority Associated Diagnoses Order S kellee Reed Request for Outpatient Referral Routine Rheumatoid arthri tis Ordered: Infusion Medication involving hand with 1 09/12/2015 positive rheumatoid factor, unspecified laterality documented as of this encounter Visit Diagnoses Diagnosis Rheumatoid arthritis involving hand with positive rheumatoid factor, unspecified laterality documented in this encounter Care Teams Oracle Consultant Relationship Specialty Start Date End Date Derrick Johnson MD PCP - General General Internal Medicine 12/27/15 [address] [place] [address] documented as of this encounter
--- OUTSIDE RECORDS SUMMARY | 2022-08-04 16:24 | XMS_ITS | Encounter Summary ---
:1975 Author Organization [facility] Address [address] [place] [address] Care Team Providers Name Role Phone Adrián Reynolds MD Primary Care Provider [phone] Encounter Details Date Type Department Care Team Description 10/12/2015 Hospital Encounter Radiology Library at [facility], [place] [address] Social History Tobacco Use Types Packs/Day [...] Diagnosis Comme nts FILM LIBRARY Routine 10/12/2015 12:00 AM Pain Results for this STORAGE ONLY DX EST procedure ar e in CHEST the results section. documented in this encounter Results Film Library- Storage only DX Chest (10/12/2015 12:00 AM EST) Specimen (Source) Anatomical Location Collection Method / Collectio n Time Received Time / Laterality Volume Narrative [facility] RAD - 10/14/2015 5:18 PM EST See PACS for result report. [facility] IMG FILM LIBRARY ORDERABLES Performing Organization Address City/State/ZIP Code [facility] e Number [place], [place] documented in this encounter Visit Diagnoses Diagnosis Pain Generalized pain documented in this encounter Care Teams Seismology Teacher Relationship Specialty Start Date End Date Adrián Reynolds MD PCP - General 12/04/13 10/30/[address] [place] [address] documented as of this encounter
--- OUTSIDE RECORDS SUMMARY | 2022-08-04 16:24 | XMS_ITS | Encounter Summary ---
:1975 Author Organization [facility] [place] [address] Care Team Providers Name Role Phone Estefani Rodriguez MD Primary Care Provider Reason for Visit Reason Comments IV Medication High Dollar Medication (Routine) - Specialty Diagnoses / Procedures Referred By Contact Refer red To Contact Med Infusion Diagnoses Rheumatoid arthritis Rebeca Valerio, [facility] Med Infusion 3d Procedures TC RITUXIMAB, 100MG, INJECTION (RITUXAN) DO [facility] [address] [place] [address] [place] [address] Referral ID Status Reason Start Date Expiration Date Visits V isits Requested Authorized [id number] Evaluate and 01/31/2015 02/01/2016 12 12 Treat Encounter Details Date Type Department Care Team Description 11/10/2015 Hospital Encounter Med Infusion at [facility] Rheumatoid arthritis [facility] involving both hands, [place] [address] factor presence [phone] [M06.041, M06.0 42] Social History Tobacco Use Types Packs/Day Years Used Date Smoking Tobacco: Former Cigarettes Smokeless Tobacco: Never Comments: Quit in 2008 Alcohol Use Standard Drinks/Week Comments No 0 (1 standard drink = 0.6 oz pure alcoho l) Sex Assigned at Date Recorded Not on file documented as of this encounter Last Filed Vital Signs Vital Sign Reading Time Taken Comments Blood Pressure 115/75 11/10/2015 11:35 AM EST Pulse 85 11/10/2015 11:35 AM EST Temperature 36.6 ??C (97.9 ??F) 11/10/2015 11:35 AM EST Respiratory Rate 16 11/10/2015 11:35 AM EST Oxygen Saturation 98% 11/10/2015 11:35 AM EST Inhaled Oxygen Concentration - - [...] Concentrate vein. RITUXIMAB (RITUXAN IV) 0 06/23/2015 ALPRAZolam (XANAX) [...] 11/10/2015 05/10/2016 4 mg Tablet mouth daily. enoxaparin (LOVENOX) 100 1 mg/kg/dose. 0 10/03/19 16 11/21/2015 mg/mL Syringe PARoxetine (PAXIL) 20 mg 0 10/05/2015 03/13/2016 Tablet prazosin (MINIPRESS) 5 mg 0 10/21/2015 03/13/2016 Capsule SUMAtriptan (IMITREX) 50 mg 0 09/14/19 16 [...] encounter Progress Notes Teresa Boston RN - 11/10/2015 11:46 AM EST Patient Name: Monique Zamora Patient Age: 40 y.o. Birthdate: 1975 Admit date: 11/10/2015 Attending Physician: No att. providers found INFUSION THERAPY ADMINISTRATION NOTES DIAGNOSIS: Rheumatoid Arthritis REASON FOR VISIT: Rituxan day # 1 SUBJECTIVE: Offers no complaints. OBJECTIVE: Last dose received on 06/02/2015 VITALS: BP 115/75 mmHg Pulse 85 Temp(Src) 36.6 ??C (97.9 ??F) (Oral) Resp 16 SpO2 98% IF PAIN >5, INTERVENTION AND EFFECTIVENESS: na IV ACCESS: Peripheral IV - Single Lumen 11/10/15 1135 median cubital vein right (antecubital fossa) 22 gauge (Active) HYDRATION: NS @ KVO 1130 off with infusion ANTIEMETICS/PREMEDS, Benadryl 25 mg IV@ 1135 to 1145 Patient identification and orders checked against actual dose given at bedside by Isabell Boston RN TREATMENT Rituxan 1000 mg IV Administration times: See NOV 08 day dosing schedule used. REACTIONS None. ASSESSMENT: Tolerated infusion well. PLAN: Return to clinic on 03/13/2016. documented in this encounter Plan of Treatment Not on filedocumented as of this encounter Visit Diagnoses Diagnosis Rheumatoid arthritis involving both hand s, unspecified rheumatoid factor presence [M06.041, M06.042] documented in this encounter Administered Medications Inactive Administered Medications - up to 3 most recent administrations Medication Order MAR Action Action Date Dose Rate Site acetaminophen (TYLENOL) tablet Given 11/10/2015 11:30 AM EST 650 mg 650 mg 650 mg, Oral, ONCE, 1 dose, On Aditi 11/10/15 at 1145, FIRST INFUSION Upon arrival prior to rituximab., Outpatient Transfusion, Routine diphenhydrAMINE (BENADRYL) injection 25 mg Given 11/10/2015 11:40 AM EST 25 mg 25 mg, Intravenous, ONCE, 1 dose, On Aditi 11/10/15 at 1145, FIRST INFUSION Upon arrival prior to rituximab., Outpatient Transfusion, Routine riTUXimab (RITUXAN) 1,000 mg in sodium New Bag 11/10/2015 11:5 5 AM EST 1,000 mg chloride 0.9% 500 mL infusion 1,000 mg, Intravenous, ONCE, 1 dose, On Aditi 11/10/15 at 1145, FIRST INFUSION Administer intravenously at an initial [...] diagnosis documented in this encounter Care Teams Screw Machine Tool Setter Relationship Specialty Start Date End Date Estefani Rodriguez MD PCP - General General Internal Medicine 10/31/15 [address] [place] [address] documented as of this encounter
--- OUTSIDE RECORDS SUMMARY | 2022-08-04 16:24 | XMS_ITS | Encounter Summary ---
:1975 Author Organization [facility] [place] [address] Care Team Providers Name Role Phone Derrick Johnson MD Primary Care Provider [phone] Reason for Visit Reason Comments Abdominal Pain Pelvic Pain Encounter Details Date Type Department Care Team Description 07/18/2016 - Emergency Emergency Department Rosa M Narayan, [place] norrhagia with regular cycle; 07/19/2016 Dora Iraheta MD Abnormal uterine and vaginal bleeding, u nspecified; [facility] MEDICAL Pelvic and perineal pain; [facility] Anemia, unspecified; [facility] EMERGENCY Shortness of breath; [facility] Rheumatoid arthritis, unspecified; [id number] [place] [address] Fibromyalgia; [phone] Anxiety; (Work) Major depressive disorder, single episod e, unspecified; [phone] Personal histor y of PE (pulmonary embolism); (Fax) Personal histor y of unspecified infectious and parasitic disease; Personal histor y of tobacco use, presenting hazards to health; Personal histor y of unspecified digestive disease; Other specified postprocedural states; Encounter for l alisha-term (current) use of other medications; 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; Other nonmedici nal substance allergy status; Personal histor y of allergy to sulfonamides; Allergy to late x Social History Tobacco Use Types Packs/Day Years Used Date Smoking Tobacco: Former Cigarettes Smokeless Tobacco: Never Comments: Quit in 2008 Alcohol Use Standard Drinks/Week Comments No 0 (1 standard drink = 0.6 oz pure alcoho l) Sex Assigned at Date Recorded Not on file documented as of this encounter Last Filed Vital Signs Vital Sign Reading Time Taken Comments Blood Pressure 136/78 07/19/2016 12:21 AM EST Pulse 80 07/18/2016 10:30 PM EST Temperature 36.9 ??C (98.4 ??F) 07/18/2016 3:18 PM EST Respiratory Rate 16 07/18/2016 3:18 PM EST Oxygen Saturation 91% 07/19/2016 12:21 AM EST Inhaled Oxygen Concentration - - Weight 97.5 kg (214 lb 15.2 oz) 07/18/2016 3:18 PM EST Height 155 cm (5' 1.02) 07/18/2016 3:18 PM EST Body Mass Index 40.58 07/18/2016 3:18 PM EST documented in this encounter Discharge Instructions Discharge InstructionsRosa M Nraayan MD - 07/19/2016 12:05 AM EST Images from the original note were not included. [facility] Anemia From Heavy Bleeding: Care Instructions Have your hemoglobin rechecked within 24-28 hours if you continue to have heavy menstrual bleeding. Follow up with your [facility]. Your Care Instructions Anemia means that your body does not have enough red blood cells. Red blood cells carry oxygen around the body. When you have anemia, you may feel dizzy, tired, and weak. You may also feel your heart pounding. For some people, it's hard to focus and think clearly. One common cause of anemia is bleeding. Bleeding from ulcers, hemorrhoids, cancer, or other problemscan cause anemia. It may also be caused by heavy menstrual periods. Your treatment may include iron pills. Iron helps your body make hemoglobin. Hemoglobin is the part of the red blood cell that carries oxygen. If you have severe anemia, you may need a blood transfusion to give you red blood cells as quickly as possible. Sometimes it takes several months to get iron levels back to normal. Follow-up care is a bishop part of your treatment and safety. Be sure to make and go to all appointments, and call your doctor if you are having problems. It's also a good idea to know your test results and keep a list of the medicines you take. How can you care for yourself at home? ?? Be safe with medicines. Take your medicines exactly as prescribed. Call your doctor if you think you are having a problem with your medicine. ?? Follow your doctor's advice about eating foods that have a lot of iron in them. These include redmeat, shellfish, poultry, and eggs. They also include beans, raisins, whole-grain bread, and leafy green vegetables. ?? Steam your vegetables. This is the best way to prepare them if you want to get as much iron as possible. ?? Iron pills can cause constipation. If you take them, there are things you can do to avoid constipation. Drink plenty of fluids, eat foods with a lot of fiber, and exercise every day. When should you call for help? Call 911 anytime you think you may need emergency care. For example, call if: ?? You passed out (lost consciousness). ?? Your stools are maroon or very bloody. Call your doctor now or seek immediate medical care if: ?? You have new or worse trouble breathing. ?? You are dizzy or lightheaded, or you feel like you may faint. ?? You have any abnormal bleeding, such as: ?? Nosebleeds. ?? Vaginal bleeding that is different (heavier, more frequent, at a different time of the month) than what you are used to. ?? Bloody or black stools, or rectal bleeding. ?? Bloody or pink urine. Watch closely for changes in your health, and be sure to contact your doctor if: ?? You feel weaker or more tired than usual. ?? You do not get better as expected. Where can you learn more? Visit our health information library at [email or web address] You can also view health information on [employer], your personal patient account. Log in or sign up today. Enter I435 in the search box to learn more about Anemia From Heavy Bleeding: Care Instructions. ?? [id number] [employer]. Care instructions adapted under license by [facility]. This care instruction is for use with your licensed healthcare professional. If you have questionsabout a medical condition or this instruction, always ask your healthcare professional. [employer] disclaims any warranty or liability for your use of this information. Content Version: [id number]; Current as of: February 24, 2016 documented in this encounter Medications at Time [...] for Pain. documented as of this encounter ED Notes Rosa M Narayan MD - 07/18/2016 11:35 PM EST Chief Complaint Patient presents with ??? Abdominal Pain ??? 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 Diff in april which has resolved. Notes her bowel movements have returned to her baseline consistency and frequency and are not mucosusy or particularly malodorous. Pt is unable to quantify how many pads she has used in the last few hours but notes that there has been a lot of bleeding. No fevers or chills. Has been seen by [facility] for heavy periods and is considering an ablation for chronic mild anemia. No other vaginal discharge. No new sexual partners but does have sex with one male partner. Allergies Allergen Reactions ??? Latex, Natural Rubber Other reaction(s): Latex, Natural Rubber ??? Sulfa (Sulfonamide Antibiotics) Anaphylaxis Other reaction(s): Wheezing ??? Tape, Permeable Adhesive Review of Systems All other systems reviewed and are negative. Physical Exam Constitutional: She is oriented to person, place, and time. She appears well- developed and well-nourished. She appears distressed. HENT: Head: Normocephalic and atraumatic. Mouth/Throat: No oropharyngeal exudate. Eyes: EOM are normal. Pupils are equal, round, and reactive to light. Neck: Normal range of motion. Neck supple. Cardiovascular: Normal rate, regular rhythm and normal heart sounds. Exam reveals no gallop and no friction rub. No murmur heard. Pulmonary/Chest: Effort normal and breath sounds normal. No respiratory distress. She has no wheezes. She has no rales. She exhibits no tenderness. Abdominal: Soft. Bowel sounds are normal. She exhibits no distension and no mass. There is tenderness (TTP most pronounced in the suprapubic area, no tender in the upper quadrants. ). There is no rebound and no guarding. Exam limited by morbid obesity Genitourinary: Vagina normal. No vaginal discharge found. Genitourinary Comments: Blood in the vaginal vault, no vaginal or cervical lacs, cervical os closed,no friability, mass, or erythema of the cervix. Bimanual exam reveals tenderness of the bilateral adenexa and uterus. Musculoskeletal: Normal range of motion. She exhibits no edema. Neurological: She is alert and oriented to person, place, and time. Skin: Skin is warm and dry. No rash noted. No erythema. Psychiatric: She has a normal mood and affect. Her behavior is normal. Procedures MDM Ddx includes menorrhagia, ovarian cyst, ectopic , spontaneous or missed AB, less likely ovarian torsion. Doubt appendicitis, c. Diff (though checking stool per pt request), mesenteric ischemia, SBO. Will get US, labs, treat pain, IVF, re-eval. ED Course: Of note pt had subjective SOB for a very short period of time which seemed to be related to some anxiety and pain. CXR ordered and negative. US negative, discussed with pt RBA of further imaging (CT), admission to [facility] or d/c home with close f/u, pt elects to go home and f/u for repeat Hgb within 24-48 hr. 6 hr Hgb dropped by 0.7, no needfor transfusion at this time. Rosa M Narayan MD 07/19/16 0025 documented in this encounter Miscellaneous Notes ED Triage - Abram Molina - 07/18/2016 3:21 PM EST Patient is treated for rheumatoid arthritis and received Ritixan infusion before going to rheumatology appoint where her baseline abdominal pain and pelvic pain acutely worsened prompting code white. She has had gas cramps since being treated for C. Diff in April having completed course of antibiotics. documented in this encounter Plan of Treatment Not on filedocumented as of this encounter Procedures Procedure Name Priority Date/Time Associated Comments Diagnosis US TRANSVAGINAL NON STAT 07/18/2016 11:43 Resu lts for this OB PM EST procedure are i n the results section. HEMOGLOBIN STAT 07/18/2016 10:02 Results for this PM EST procedure are i n the results section. C. DIFFICILE SCREEN Routine 07/18/2016 9:39 PM Re sults for this EST procedure are i n the results section. XR CHEST PA AND STAT 07/18/2016 7:17 PM Result s for this LATERAL EST procedure are i n the results section. HEMOGRAM STAT 07/18/2016 5:10 PM Results f or this EST procedure are i n the results section. DIFFERENTIAL, STAT 07/18/2016 5:10 PM Results for this AUTOMATED EST procedure are i n the results section. BLUE TUBE HOLD STAT 07/18/2016 5:10 PM Results for this EST procedure are i n the results section. GREEN TUBE HOLD STAT 07/18/2016 5:10 PM Result s for this EST procedure are i n the results section. CBC (WITH DIFF) STAT 07/18/2016 5:10 PM EST BETA HCG, STAT 07/18/2016 5:10 PM Results f or this QUANTITATIVE EST procedure are i n the results section. POCT URINE STAT 07/18/2016 Results for this procedure are i n the results section. POCT URINE DIPSTICK STAT 07/18/2016 Results for this procedure are i n the results section. documented in this encounter Results US Transvaginal Non OB (07/18/2016 11:43 PM EST) Anatomical Region Laterality Modality Ultrasound Specimen (Source) Anatomical Location Collection Method / Collectio n Time Received Time / Laterality Volume Impressions 07/19/2016 4:49 AM EST 1. ??No evidence of active ovarian torsion. 2. ??Bladder wall thickening and debris within the lumen consistent with UTI. I have personally reviewed the image(s) and the residents interpretation and agree with the findings, Nick Jara at 07/19/2016 4:49 AM Narrative 07/19/2016 4:49 AM EST EXAM: US TRANSVAGINAL NON OB CLINICAL HISTORY: ?? Bilateral adnexal and uterine tenderness to palpation, large-volume vaginal bleeding COMPARISON STUDY: ?? None TECHNIQUE: ?? Transvaginal images were obtained. [place] r Doppler studies performed. Emergency study. Probe #36 was used FINDINGS: The uterus is retroverted and retroflexe d and measures 5.7 cm in length. Small 0.5 cm x 0.6 cm fibroid in the mid poste rior myometrium. The endometrial echo measures 0.9 cm. Pa tient is currently menstruating. The right ovary measures 3.0 cm x 1.8 cm x 1.9 cm. Doppler detected blood flow. Total volume of 5.0 cc and containing a anechoic thick-walled cyst with a vessel that courses nearby to this cyst as conf irmed on cine clips. The left ovary measures 2.7 cm x 1.6 cm x 1.6 cm. Doppler sector blood flow. Total volume of 3.6 cc. There is a small amount of simple fluid in the cul-de-sac. The bladder wall is thickened and floati ng debris is seen within the bladder. Procedure Note Nick Jara MD - 07/19/2016 EXAM: US TRANSVAGINAL NON OB CLINICAL HISTORY: Bilateral adnexal and uterine tenderness to palpation, large-volume vaginal bleeding COMPARISON STUDY: None TECHNIQUE: Transvaginal images were obtained. [place] r Doppler studies performed. Emergency study. Probe #36 was used FINDINGS: The uterus is retroverted and retroflexe d and measures 5.7 cm in length. Small 0.5 cm x 0.6 cm fibroid in the mid poste rior myometrium. The endometrial echo measures 0.9 cm. Pa [place] is currently menstruating. The right ovary measures 3.0 cm x 1.8 cm x 1.9 cm. Doppler detected blood flow. Total volume of 5.0 cc and containing a anechoic thick-walled cyst with a vessel that courses nearby to this cyst as conf irmed on cine clips. The left ovary measures 2.7 cm x 1.6 cm x 1.6 cm. Doppler sector blood flow. Total volume of 3.6 cc. There is a small amount of simple fluid in the cul-de-sac. The bladder wall is thickened and floati ng debris is seen within the bladder. IMPRESSION 1. No evidence of active ovarian torsion . 2. Bladder wall thickening and debris wi thin the lumen consistent with UTI. I have personally reviewed the image(s) and the residents interpretation and agree with the findings, Nick Jara at 07/19/2016 4:49 AM Rosa M Narayan MD IMG US PELVIC ORDERABLES (ABNORMAL) Hemoglobin (07/18/2016 10:02 PM EST) P athologist Signature Hemoglobin 11.3 (L) 11.7 - [facility]/dL [facility] Specimen Anatomical Collection Method Collection Time Receive d Time (Source) Location / / Volume Laterality Blood specimen 07/18/2016 10:02 6 (specimen) PM EST 10:09 PM EST Resulting Agency Comment Spec In Lab Rosa M Narayan MD HEMATOLOGY ORDERABLES Performing Organization Address [facility]/[place] [address] (ABNORMAL) C. Difficile Screen (07/18/2016 9:39 PM EST) [facility] gist Method Time Signature C Diff Screen Positive (A) Negative [facility] Comment: C. diff ??Positive (Toxin negative, PCR positive) A positive PCR test establishes the pres ence of a toxin-carrying C. difficile strain in the specimen, but does not dis tinguish between colonization and disease. Patient needs to remain on Cont act Precautions until discharge or approval by Infection Prevention. Specimen Anatomical Collection Method Collection Time Receive d Time (Source) Location / / Volume Laterality Stool specimen 07/18/2016 9:39 PM 016 (specimen) EST 10:59 PM EST Comment: I am aware that this test may b e canceled if the patient has had->formed stool, laxatives within 48hrs, (-) test within 7 days, (+) test within 14 days Resulting Agency Comment Spec In Lab Rosa M Narayan MD MICROBIOLOGY - GENERAL ORDER ANGELES Performing Organization Address City/[facility] [place] [address] XR Chest PA & Lateral (Generic) (07/18/2016 7:17 PM EST) Anatomical Region Laterality Modality Chest N/A Digital Radiography Specimen (Source) Anatomical Location Collection Method / Collectio n Time Received Time / Laterality Volume Impressions 07/18/2016 7:24 PM EST No radiographic evidence of active cardiopulmonary disease. Narrative 07/18/2016 7:24 PM EST EXAMINATION: XR CHEST PA AND LATERAL (GENERIC) CLINICAL HISTORY: sudden onset SOB TECHNIQUE: Frontal and lateral radiograp hs of the chest COMPARISON: 10/12/2015 FINDINGS: Cardiomediastinal contours are within no rmal limits. Lungs are clear. There are no pleural ef fusions. Kyphosis of the thoracic spine. Procedure Note Tammy Xiao MD - 07/18/2016 EXAMINATION: XR CHEST PA AND LATERAL (GE NERIC) CLINICAL HISTORY: sudden onset SOB TECHNIQUE: Frontal and lateral radiograp hs of the chest COMPARISON: 10/12/2015 FINDINGS: Cardiomediastinal contours are within no rmal limits. Lungs are clear. There are no pleural ef fusions. Kyphosis of the thoracic spine. IMPRESSION No radiographic evidence of active cardi opulmonary disease. Rosa M Narayan MD IMG DX ORDERABLES Green Tube HOLD (07/18/2016 5:10 PM EST) P athologist Signature Green Hold Sample in [facility] LABORATORY Specimen Anatomical Collection Method Collection Time Receive d Time (Source) Location / / Volume Laterality Blood specimen Venous Draw / 07/18/2016 5:10 PM 2015 5:21 (specimen) Unknown EST PM EST Rosa M Narayan MD CHEMISTRY ORDERABLES Performing Organization Address City/[facility]/[place] [address] Blue Tube HOLD (07/18/2016 5:10 PM EST) P athologist Signature Blue Hold Sample in [facility] LABORATORY Specimen Anatomical Collection Method Collection Time Receive d Time (Source) Location / / Volume Laterality Blood specimen Venous Draw / 07/18/2016 5:10 PM 2015 5:22 (specimen) Unknown EST PM EST Rosa M Narayan MD HEMATOLOGY ORDERABLES Performing Organization Address City/[facility]/[place] [address] (ABNORMAL) Differential, Automated (07/18/2016 5:10 PM EST) athologist Signature Neutrophils % 62.0 % [facility] Neutr Abs (ANC) 3.75 1.70 - [facility] 6.10 [facility] x10(3)/[facility] LABORATORY Lymphocytes % 24.0 % [facility] Lymphocytes Abs 1.4 0.9 - 3.2 [facility] x10(3)/[facility] LABORATORY Monocytes % 8.9 % [facility] Monocyte Abs 0.5 0.3 - 0.9 [facility] x10(3)/[facility] LABORATORY Eosinophils % 3.1 % [facility] Eosinophils Abs 0.2 0.0 - 0.4 [facility] x10(3)/[facility] LABORATORY Basophils % 0.7 % [facility] Basophils Abs 0.0 0.0 - 0.1 [facility] x10(3)/[facility] LABORATORY Immature Gran % 1.30 % [facility] Comment: Immature granulocytes(IG's)percentage an d absolute count will include metamyelocytes, myelocytes, and promyelo cytes. Blood smears from CBCs yielding IG's will be scanned manually for concor dance. If this scan disagrees with the automated IG or if promyelocytes are not ed, a manual differential will be performed. Helen Gran Abs 0.08 (H) 0.00 - 0.04 x10(3)/[facility] LABORATORY Specimen Anatomical Collection Method Collection Time Receive d Time (Source) Location / / Volume Laterality Blood specimen 07/18/2016 5:10 PM 016 5:21 (specimen) EST PM EST Resulting Agency Comment Spec In Lab Rosa M Narayan MD HEMATOLOGY ORDERABLES Performing Organization Address City/State/[place] [address] Hemogram (07/18/2016 5:10 PM EST) P athologist Signature WBC 6.0 4.0 - 9.5 [facility] x10(3)/[facility] LABORATORY RBC 4.19 4.00 - [facility] 5.21 [facility] x10(6)/[facility] LABORATORY Hemoglobin 12.0 11.7 - [facility] 15.5 gm/dL [facility] Hematocrit 36.0 35.7 - [facility] 45.8 % [facility] MCV 85.9 82.6 - [facility] 94.4 fL [facility] MCH 28.6 27.1 - [facility] 32.0 pg [facility] MCHC 33.3 31.7 - [place] 35.0 gm/dL [facility] Platelets 208 145 - 357 [place] x10(3)/[facility] LABORATORY RDWSD 43.8 37.0 - [place] 46.0 [facility] RDWCV 14.1 11.5 - [facility] CAL 14.1 % [facility] MPV 10.0 7.6 - 12.9 [facility] nRBC % Auto 0.0 % [facility] nRBC Abs Auto 0.000 0.000 - [place] 0.000 [facility] x10(3)/[facility] LABORATORY Specimen Anatomical Collection Method Collection Time Receive d Time (Source) Location / / Volume Laterality Blood specimen 07/18/2016 5:10 PM 016 5:21 (specimen) EST PM EST Resulting Agency Comment Spec In Lab Rosa M Narayan MD HEMATOLOGY ORDERABLES Performing Organization Address City/State/[place] [address] Beta HCG, quantitative (07/18/2016 5:10 PM EST) athologist Signature Beta hCG Quant <1 mlU/ML [facility] Comment: REFERENCE RANGES NON- FEMALE: ??Less than 5 mIU/m L POSTMENOPAUSAL FEMALE: ??Less than 8 mIU /mL ? -- FEMALES -- Weeks of ? HCG range ??(mIU/mL) ? 3 weeks ? 5.8 - 71.2 ? 4 weeks ? 9.5 - 750 ? 5 weeks ? 217 - 7,138 ? 6 weeks ? 158 - 31,795 ? 7 weeks ? 3,697 - 163,563 ? 8 weeks ? 32,065 - 149,571 ? 9 weeks ? 63,803 - 151,410 ?10 weeks ? 46,509 - 186,977 ?12 weeks ? 27,832 - 210,612 ?14 weeks ? 13,950 - 62,530 ?15 weeks ? 12,039 - 70,971 ?16 weeks ? 9,040 - 56,451 ?17 weeks ? 8,175 - 55,868 ?18 weeks ? 8,409 - 63,829 Specimen Anatomical Collection Method Collection Time Receive d Time (Source) Location / / Volume Laterality Blood specimen 07/18/2016 5:10 PM 016 5:21 (specimen) EST PM EST Resulting Agency Comment Spec In Lab Rosa M Narayan MD CHEMISTRY ORDERABLES Performing Organization Address City/State/[place] [address] POCT urine (07/18/2016) [employer] gist Method Time Signature POC Urine HCG Negative Negative - Negative POC Control Internal Controls Acceptable Specimen (Source) Anatomical Location Collection Method / Collectio n Time Received Time / Laterality Volume 07/18/2016 Rosa M Narayan MD POINT OF CARE TEST ORDERABLE S POCT urine dipstick (07/18/2016) [employer] Method Time Signature POC Sp 1.025 1.002 - [place] 1.030 POC pH, UA 5 5.0 - 8.5 POC Leuk, UA trace Negative - Negative POC Nitrite, negative Negative - UA Negative POC Protein, 30 Negative - UA Negative mg/dL POC Glucose, normal Normal - UA Normal mg/dL POC Ketone, negative Negative - UA Negative POC Urobil, normal 0.2 - 1.0 UA mg/dL POC Bili, UA negative Negative - Negative POC Blood, UA about 250 Negative - Negative lizette/uL Specimen (Source) Anatomical Location Collection Method / Collectio n Time Received Time / Laterality Volume 07/18/2016 Rosa M Narayan MD POINT OF CARE TEST ORDERABLE S documented in this encounter Visit Diagnoses Diagnosis Menorrhagia with regular cycle Excessive or frequent menstruation Abnormal uterine and vaginal bleeding, u nspecified Pelvic and perineal pain Unspecified symptom associated with fema le genital organs Anemia, unspecified Shortness of breath Rheumatoid arthritis, unspecified Fibromyalgia Mylagia and myositis, unspecified Anxiety Anxiety state, unspecified Major depressive disorder, single episod e, unspecified Personal history of PE (pulmonary emboli sm) Personal history of pulmonary embolism Personal history of unspecified infectio us and parasitic disease Personal history of tobacco use, present ing hazards to health Personal history of unspecified digestiv e disease Other specified postprocedural states Encounter 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 long-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 (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 Long-term (current) use of anticoagulant s Other nonmedicinal substance allergy sta tus Personal history of allergy to sulfonami jovanny Allergy to latex documented in this encounter Administered Medications Inactive Administered Medications - up to 3 most recent administrations Medication Order MAR Action Action Date Dose Rate Site HYDROmorphone (DILAUDID) injection 1 Given 07/18/2016 5:16 PM ES T 1 mg mg 1 mg, Intravenous, ONCE, 1 dose, On Sat07/18/16 at 1715, STAT HYDROmorphone (DILAUDID) injection 1 mg Given 07/18/2016 8:29 PM EST 1 mg 1 mg, Intravenous, ONCE, 1 dose, On Sat07/18/16 at 1951, STAT HYDROmorphone (DILAUDID) injection 1 mg Given 07/18/2016 10:14 PM EST 1 mg 1 mg, Intravenous, ONCE, 1 dose, On Sat07/18/16 at 2207, STAT HYDROmorphone (DILAUDID) injection 1 mg Given 07/18/2016 11:54 PM EST 1 mg 1 mg, Intravenous, ONCE, 1 dose, On Sat07/18/16 at 2344, STAT morphine 4 mg/mL carpuject 10 mg Given 07/18/2016 4:24 PM EST 10 mg 10 mg, Intravenous, ONCE, 1 dose, On Sat07/18/16 at 1556, STAT sodium chloride 0.9% 1,000 mL IV bolus Given 07/18/2016 4:26 PM EST 4000 mL/hr at 4,000 mL/hr, Intravenous, ONCE, 1 dose, On Sat07/18/16 at 1556 sodium chloride 0.9% 1,000 mL IV bolus Given 07/18/2016 6:41 PM EST 4000 mL/hr at 4,000 mL/hr, Intravenous, ONCE, 1 dose, On Sat07/18/16 at 1841 TAKE HOME vial of 5, oxyCODONE-acetamino phen (PERCOCET) 5-325 mg tablet 1-2 tablet, Oral, EVERY 6 HOURS PRN, Sta rting on Aditi 07/19/16 at 0001, Until Aditi 07/19/16 at 0238, Pain, Maximum dose of acetaminophen is 4000 mg from all sources in 24 hours., STAT documented in this encounter Active and Recently Administered Medications Times are shown in EST. Scheduled Medication Order 07/17/2016 07/18/2016 07/19/2016 HYDROmorphone (DILAUDID) injection 1 mg (COMPLETED) 171 (Given - Provider: Abram Molina) 1 mg, Intravenous, ONCE, 1 dose, Sat07/18/16 at 1715, STAT HYDROmorphone (DILAUDID) injection 1 mg (COMPLETED) 202 (Given - Provider: Abram Molina) 1 mg, Intravenous, ONCE, 1 dose, Sat07/18/16 at 1951, STAT HYDROmorphone (DILAUDID) injection 1 mg (COMPLETED) 2214 (Given - Provider: Abram Molina) 1 mg, Intravenous, ONCE, 1 dose, Sat07/18/16 at 2207, STAT HYDROmorphone (DILAUDID) injection 1 mg (COMPLETED) 2354 (Given - Provider: Abram Molina) 1 mg, Intravenous, ONCE, 1 dose, Sat07/18/16 at 2344, STAT morphine 4 mg/mL carpuject 10 mg (COMPLETED) 1624 (Given - Provider: Abram Molina) 10 mg, Intravenous, ONCE, 1 dose, Sat07/18/16 at 1556, STAT sodium chloride 0.9% 1,000 mL IV bolus (COMPLETED) 1626 (Given - Provider: Abram Molina)1718 (IV Stop - Provider: Abram Molina) at 4,000 mL/hr, Intravenous, ONCE, 1 dose, Sat07/18/16 at 1556 sodium chloride 0.9% 1,000 mL IV bolus (COMPLETED) 1841 (Given - Provider: Marcy Proctor RN) at 4,000 mL/hr, Intravenous, ONCE, 1 dose, Sat07/18/16 at 1841 PRN Medication Order 07/17/2016 07/18/2016 07/19/2016 TAKE HOME vial of 5, oxyCODONE-acetaminophen (PERCOCET) 5-325 mg tablet 1-2 tablet, Oral, EVERY 6 HOURS PRN, Sta rting Aditi 07/19/16 at 0001, Until Aditi 07/19/16 at 0238, Pain, Maximum dose of acetaminophen is 4000 mg from all sources in 24 hours., STAT documented in this encounter Care Teams Call Center Operator Relationship Specialty Start Date End Date Ziobrowski, Derrick F, MD PCP - General General Internal Medicine 12/27/15 [address] [place] [address] documented as of this encounter
--- OUTSIDE RECORDS SUMMARY | 2022-08-04 16:24 | XMS_ITS | Encounter Summary ---
:1975 Author Organization [place] [address] Care Team Providers Name Role Phone Adrián Reynolds MD Primary Care Provider [phone] Reason for Referral High Dollar Medication (Routine) - Duplicate Referral Specialty Diagnoses / Procedures Referred By Contact Refer red To Contact Med Infusion Diagnoses Rheumatoid arthritis involving both hands, unspecified rheumatoid factor presence Rebeca Valerio [facility] Med Infusion 3d Procedures TC RITUXIMAB, 100MG, INJECTION (RITUXAN) DO [facility] [place] [address] [place] [address] Referral ID Status Reason Start Expiration Visits Visits Date Date Requested Authorized [id number] Duplicate Consult, 09/28/2015 09/27/2016 4 4 Referral Test & Treat Encounter Details Date Type Department Care Team Description 09/28/2015 Orders Only Rheumatology at [facility] Katy Valerio arthritis [facility] Rebeca Reeder DO involving both hands, Drive [facility] [place] [address] [address] rheumatoid factor [phone] RHEUMATOLOGY DEP T. presence [M06.041, [place], [place] [address] M06.042] Social History Tobacco Use Types Packs/Day Years [...] Rheumatoid arthri tis Ordered: Infusion Medication involving both 2015 hands, unspecified rheumatoid factor presence [M06.041, M06.042] documented as of this encounter Visit Diagnoses Diagnosis Rheumatoid arthritis involving both hand s, unspecified rheumatoid factor presence [M06.041, M06.042] documented in this encounter Care Teams Hydro Operator Relationship Specialty Start Date End Date Adrián Reynolds MD PCP - General 12/04/13 10/30/[address] [place] [address] documented as of this encounter
--- OUTSIDE RECORDS SUMMARY | 2022-08-04 16:24 | XMS_ITS | Encounter Summary ---
:1975 Author Organization [facility] [place] [address] Care Team Providers Name Role Phone Derrick Johnson MD Primary Care Provider [phone] Reason for Referral Consultation (Routine) - Canceled Specialty Diagnoses / Procedures Referred By Contact Refer red To Contact Gastroenterology Diagnoses Postprandial diarrhea Rebeca Valerio O'Shana, Tracia, APRN DO [facility] GASTROENTEROLOGY DEPT. [place] [address] [place] [address] Referral ID Status Reason Start Date Expiration Date Visits V isits Requested Authorized [id number] Canceled Consult, 03/13/2016 03/13/2017 1 1 Test & Treat Encounter Details Date Type Department Care Team Description 03/13/2016 Office [place] [facility] [place] Miguel Valerio diarrhea [facility] [place] [address] CENTER [phone] [address] [place] [id number] Social History Tobacco Use Types Packs/Day Years Used Date Smoking Tobacco: Former Cigarettes Smokeless Tobacco: Never Comments: Quit in 2008 Alcohol Use Standard Drinks/Week Comments No 0 (1 standard drink = 0.6 oz pure alcoho l) Sex Assigned at Date Recorded Not on file documented as of this encounter Last Filed Vital Signs Vital Sign Reading Time Taken Comments Blood Pressure 121/67 03/13/2016 2:38 PM EDT Pulse 59 03/13/2016 2:38 PM EDT Temperature 36.7 ??C (98.1 ??F) 03/13/2016 2:38 PM EDT Respiratory Rate - - Oxygen Saturation 99% 03/13/2016 2:38 PM EDT Inhaled Oxygen Concentration - - Weight - - Height 154.9 cm (5' 1) 03/13/2016 2:38 PM EDT Body Mass Index - - documented in this encounter Progress Notes Rebeca Valerio, DO - 03/13/2016 2:35 PM EDT Outpatient Rheumatology Followup Problem List 1. RF+, CCP+ RA. -Diagnosed with seropositive RA in 2006. Was following with a vice president network at [facility]. Her RA control before was good on HCQ, MTX, and enbrel. She had very few flares on this combo. Prior xrays per patient showed no erosions. Unfortunately also got on this combination (her OCP was recalled b/c it was packaged improperly) and her prior vice president network suggested aborting the . The patient opted [...] +OCP (See Dr. Hadley note) Interim History: Had rituxan today which she receives as 1000 mg every 4 months. She came off medrol1 week ago. She is weaning herself off tramadol - only taking 1/2 pill BID. She has been trying to swim. Was seen in endocrinology and adrenal insufficiency was ruled out with normal cosyntropin stim test. Her anticoagulation was changed to oral and she is doing well with that. Her bowel issues are significant. Last week and 1 day the week before she was in bed all day with cramping abdominal pain. everytime she eats she has diarrhea. She has been eating a BRAT diet for 2 weeks. She just ate a breadstick and a few bites of pizza and she had to run to the bathroom. PMH: seropositive ra dX in 2006, PTSD, fibromyalgia, 3 c-sections, cholecystectomy, kidney stones, migraines, pneumatosis coli s/p right hemicolectomy. 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 RF+, CCP+ RA 2. PTSD, depression and anxiety 3. Pulmonary embolism x 2 4. Post-prandial diarrhea Rituxan is working well for her arthritis. MTX is off and she is no worse. In fact, she is now off medrol x 1 week and weaning herself off tramadol. i congratulated her for all of this. I am referring her to GI for recommendations for her post-prandial diarrhea. For now I asked her to try imodium. She is not having fever and otherwise looks the best that I have seen her in a long time. RTC in 4 months on same day as next Rituxan infusion. documented in this encounter Plan of Treatment Scheduled Referrals Name Type Priority Associated Order Schedule Diagnoses Referral to Outpatient Routine Postprandial Ordered: Gastroenterology Referral diarrhea 03/13/2016 documented as of this encounter Visit Diagnoses Diagnosis Postprandial diarrhea Diarrhea documented in this encounter Care Teams Small Business Consultant Relationship Specialty Start Date End Date Derrick Johnson MD PCP - General General Internal Medicine 12/27/15 [address] [place] [address] documented as of this encounter
--- OUTSIDE RECORDS SUMMARY | 2022-08-04 16:24 | XMS_ITS | Encounter Summary ---
:1975 Author Organization [facility] [place] [address] Care Team Providers Name Role Phone Derrick Johnson MD Primary Care Provider [phone] Encounter Details Date Type Department Care Team Description 05/29/2016 Telephone Rheumatology at [facility] [place] [address] Social History Tobacco Use Types Packs/Day Years Used Date Smoking Tobacco: Former Cigarettes Smokeless Tobacco: Never Comments: Quit in 2008 Alcohol Use Standard Drinks/Week Comments No 0 (1 standard drink = 0.6 oz pure alcoho l) Sex Assigned at Date Recorded Not on file documented as of this encounter Miscellaneous Notes Telephone Encounter - Deja Ibanez RN - 05/29/2016 4:22 PM EDT I spoke with Jeffreykevin and she will call [facility] and ask for Containers for stool specimens. I advised that I requested them when I faxed the orders. Telephone Encounter - Deja Ibanez RN - 05/29/2016 12:42 PM EDT Mo, I spoke with Dr. Avery. He recommended ordering stool studies for c diff and lactoferrin. If they areboth negative we can try questran. Her appointment is still in July. He thinks she has something called choleretic diarrhea. I have ordered the stool studies in e[place]. Can you have her do them in [place]? I think it is a closest place. Rebeca I have left a message for Monique to RTC to nurse. Telephone Encounter - Deja Ibanez RN - 05/29/2016 10:39 AM EDT Monique calls back and states Referral was not received at office of . I sent this yesterday after calling his office for the fax number. I will fax again if needed. Monique states Dr. Avery is booking into July but can get her in quicker if Dr. Valerio callshim directly to discuss urgency. I advised that I will pass this message along to her with the contact number. [phone]. documented in this encounter Plan of Treatment Not on filedocumented as of this encounter Visit Diagnoses Not on filedocumented in this encounter Care Teams Hazmat Cdl A Driver Relationship Specialty Start Date End Date Derrick Johnson MD PCP - General General Internal Medicine 12/27/15 [address] [place] [address] documented as of this encounter
--- OUTSIDE RECORDS SUMMARY | 2022-08-04 16:24 | XMS_ITS | Encounter Summary ---
:1975 Author Organization [facility] Address [address] [place] [address] Care Team Providers Name Role Phone Adrián Reynolds MD Primary Care Provider [phone] Encounter Details Date Type Department Care Team Description 06/24/2015 Hospital Encounter Radiology Library at [facility], [place] [address] Social History Tobacco Use Types Packs/Day [...] Concentrate vein. RITUXIMAB (RITUXAN IV) 0 06/23/2015 methylPREDNISolone (MEDROL) Take 3 tablets by 90 [...] Associated Diagnosis Comme nts FILM LIBRARY Routine 06/24/2015 12:05 AM Pain Results for this STORAGE ONLY CT EDT procedure ar e in CHEST the results section. documented in this encounter Results Film Library- Storage Only CT Chest (06/24/2015 12:05 AM EDT) Specimen (Source) Anatomical Location Collection Method / Collectio n Time Received Time / Laterality Volume Narrative KAMRYN - 10/14/2015 5:44 PM EST See PACS for result report. Dr Dawn [facility] FILM LIBRARY ORDERABLES Performing Organization Address City/State/ZIP Code Phon e Number KAMRYN KAMRYN [place], [place] documented in this encounter Visit Diagnoses Diagnosis Pain Generalized pain documented in this encounter Care Teams Clothing Cutter Relationship Specialty Start Date End Date Adrián Reynolds MD PCP - General 12/04/13 10/30/[address] [place] [address] documented as of this encounter
--- OUTSIDE RECORDS SUMMARY | 2022-08-04 16:24 | XMS_ITS | Encounter Summary ---
:1975 Author Organization [facility] Address [address] [place] [address] Care Team Providers Name Role Phone Adrián Reynolds MD Primary Care Provider [phone] Encounter Details Date Type Department Care Team Description 07/29/2015 Hospital Encounter Radiology Library at [facility], [place] [address] Social History Tobacco Use Types Packs/Day [...] Associated Diagnosis Comme nts FILM LIBRARY Routine 07/29/2015 12:00 AM Pain Results for this STORAGE ONLY CT EST procedure ar e in CHEST the results section. documented in this encounter Results Film Library- Storage Only CT Chest (07/29/2015 12:00 AM EST) Specimen (Source) Anatomical Location Collection Method / Collectio n Time Received Time / Laterality Volume Narrative KAMRYN - 10/14/2015 5:43 PM EST See PACS for result report. [facility] FIL[facility] LIBRARY ORDERABLES Performing Organization Address City/State/ZIP Code Phon e Number [place], [place] documented in this encounter Visit Diagnoses Diagnosis Pain Generalized pain documented in this encounter Care Teams Buttonhole Maker Relationship Specialty Start Date End Date Adrián Reynolds MD PCP - General 12/04/13 10/30/[address] [place] [address] documented as of this encounter
--- OUTSIDE RECORDS SUMMARY | 2022-08-04 16:24 | XMS_ITS | Encounter Summary ---
:1975 Author Organization [facility] [address] Care Team Providers Name Role Phone Derrick Johnson MD Primary Care Provider [phone] Reason for Visit Reason Onset Date Comments Medication Refill 06/20/2016 Encounter Details Date Type Department Care Team Description 06/20/2016 Refill [place] [facility] [place]banez, [place] [address] Social History Tobacco Use Types Packs/Day Years Used Date Smoking Tobacco: Former Cigarettes Smokeless Tobacco: Never Comments: Quit in 2008 Alcohol Use Standard Drinks/Week Comments No 0 (1 standard drink = 0.6 oz pure alcoho l) Sex Assigned at Date Recorded Not on file documented as of this encounter Miscellaneous Notes Telephone Encounter - Deja Ibanez RN - 06/20/2016 3:43 PM EDT Monique calls today and states she was only given 60 tablets of Tramadol with last Rx. She states that she has to pay $10 with each prescription no matter if it is 60 tabs or 240 tablets. She would like a new Rx sent to pharmacy documented in this encounter Plan of Treatment Not on filedocumented as of this encounter Visit Diagnoses Not on filedocumented in this encounter Care Teams Material Mover Relationship Specialty Start Date End Date Derrick Johnson MD PCP - General General Internal Medicine 12/27/15 [address] [place] [address] documented as of this encounter
--- OUTSIDE RECORDS SUMMARY | 2022-08-04 16:24 | XMS_ITS | Encounter Summary ---
:1975 Author Organization [facility] [place] [address] Care Team Providers Name Role Phone Adrián Reynolds MD Primary Care Provider [phone] Encounter Details Date Type Department Care Team Description 06/20/2015 Orders Only Rheumatology at [facility] Rebeca Valerio, [place] [address] [facility] [phone] RHEUMATOLOGY [place], [place] [address] (Wo rk) Social History Tobacco [...] on filedocumented in this encounter Care Teams Electronics Worker Relationship Specialty Start Date End Date Adrián Reynolds MD PCP - General 12/04/13 10/30/15 4 [place] [address] documented as of this encounter
--- OUTSIDE RECORDS SUMMARY | 2022-08-04 16:24 | XMS_ITS | Encounter Summary ---
:1975 Author Organization [facility] [place] [address] Care Team Providers Name Role Phone Adrián Reynolds MD Primary Care Provider [phone] Reason for Referral Consultation (Routine) - Complete - Patient Seen (External Appt Consult Notes Rcv'd) Specialty Diagnoses / Procedures Referred By Contact Refer red To Contact Med Infusion Diagnoses Rheumatoid arthritis Rebeca Valerio, [facility] Med Infusion 3d [facility] [place] [address] [place] [address] Referral ID Status Reason Start Expiration Visits Visits Date Date Requested Authorized [id number] Complete - Consult, 05/06/2015 05/05/2016 1 1 Patient Seen Test & (External Treat Appt Consult Notes Rcv'd) Encounter Details Date Type Department Care Team Description 05/06/2015 Orders Only Rheumatology at [facility] Iman Rheumatoid reza [facility] [place] [address] RHEUMATOLOGY DEP T. [place], [place] [address] Social History Tobacco Use Types Packs/Day Years Used Date Smoking Tobacco: Former Cigarettes Smokeless Tobacco: Never Comments: Quit in 2008 Alcohol Use Standard Drinks/Week Comments No 0 (1 standard drink = 0.6 oz pure alcoho l) Sex Assigned at Date Recorded Not on file documented as of this encounter Plan of Treatment Scheduled Referrals Name Type Priority Associated Diagnoses Order S chedule Referral to Outpatient Referral Routine Rheumatoid arthritis Ordered: Infusion Clinic 05/06/2015 documented as of this encounter Visit Diagnoses Diagnosis Rheumatoid arthritis documented in this encounter Care Teams Manager Acute Relationship Specialty Start Date End Date Adrián Reynolds MD PCP - General 12/04/13 10/30/[address] [place] [address] documented as of this encounter
--- OUTSIDE RECORDS SUMMARY | 2022-08-04 16:24 | XMS_ITS | Encounter Summary ---
:1975 Author Organization [facility] [place] [address] Care Team Providers Name Role Phone Derrick Johnson MD Primary Care Provider [phone] Reason for Visit Reason Onset Date Comments Other 06/11/2016 Follow Up Encounter Details Date Type Department Care Team Description 06/11/2016 Telephone Rheumatology at [facility] Deja Ibanez RN Other (Follow Up) [place] [address] Social History Tobacco Use Types Packs/Day Years Used Date Smoking Tobacco: Former Cigarettes Smokeless Tobacco: Never Comments: Quit in 2008 Alcohol Use Standard Drinks/Week Comments No 0 (1 standard drink = 0.6 oz pure alcoho l) Sex Assigned at Date Recorded Not on file documented as of this encounter Miscellaneous Notes Telephone Encounter - Deja Ibanez RN - 06/11/2016 1:14 PM EDT No, I have not received his notes yet. There is no need for her to see GI at this point if Dr. Avery is going to followup with her. Thanks, Rebeca I spoke with Monique and she will have notes faxed to us. She will continue with Dr. Avery. I advised that Tramadol was ordered. Telephone Encounter - Deja Ibanez RN - 06/11/2016 11:21 AM EDT Monique calls today to ask if we received office notes from Dr. Avery? She has heard from GI @ [facility] and wants to know if referral is still needed? She reports that she was started on Antibiotics 4 times daily for 14 days and she is starting to feel better. documented in this encounter Plan of Treatment Not on filedocumented as of this encounter Visit Diagnoses Not on filedocumented in this encounter Care Teams Welding Machine Operator Resistance Relationship Specialty Start Date End Date Derrick Johnson MD PCP - General General Internal Medicine 12/27/15 [address] [place] [address] documented as of this encounter
--- OUTSIDE RECORDS SUMMARY | 2022-08-04 16:24 | XMS_ITS | Encounter Summary ---
:1975 Author Organization [facility] [place] [address] Care Team Providers Name Role Phone Derrick Johnson MD Primary Care Provider Reason for Visit Reason Onset Date Comments Other 06/06/2016 Follow Up Encounter Details Date Type Department Care Team Description 06/06/2016 Telephone Rhe[place]ology at [facility] Deja Ibanez RN Other (Follow Up) [place] [address] Social History Tobacco Use Types Packs/Day Years Used Date Smoking Tobacco: Former Cigarettes Smokeless Tobacco: Never Comments: Quit in 2008 Alcohol Use Standard Drinks/Week Comments No 0 (1 standard drink = 0.6 oz pure alcoho l) Sex Assigned at Date Recorded Not on file documented as of this encounter Miscellaneous Notes Telephone Encounter - Deja Ibanez RN - 06/06/2016 3:20 PM EDT Monique calls today to report that PCP called her today to tell her that stool specimen came back aspositive for C-Diff. Monique has an appointment tomorrow with GI, Dr. Avery. She would like to follow up with him for his recommendations. She will have labs faxed to this office. documented in this encounter Plan of Treatment Not on filedocumented as of this encounter Visit Diagnoses Not on filedocumented in this encounter Care Teams Sea Captain Relationship Specialty Start Date End Date Derrick Johnson MD PCP - General General Internal Medicine 12/27/15 [address] [place] [address] documented as of this encounter
--- OUTSIDE RECORDS SUMMARY | 2022-08-04 16:24 | XMS_ITS | Encounter Summary ---
:1975 Author Organization [place] [address] Care Team Providers Name Role Phone Derrick Johnson MD Primary Care Provider [phone] Reason for Visit Reason Comments IV Medication High Dollar Medication (Routine) - Specialty Diagnoses / Procedures Referred By Contact Refer red To Contact Med Infusion Diagnoses Rheumatoid arthritis involving both hands, unspecified rheumatoid factor presence Rebeca Valerio, [facility] Med Infusion 3d Procedures TC RITUXIMAB, 100MG, INJECTION (RITUXAN) DO [facility] [place] [address] [place] [address] Referral ID Status Reason Start Date Expiration Date Visits V isits Requested Authorized [id number] Consult, 09/29/2015 07/18/2017 8 8 Test & Treat Encounter Details Date Type Department Care Team Description 03/13/2016 Hospital Encounter Med Infusion [place] [facility] [place] Rheumatoid arthritis [facility] involving both hands, [place] [address] factor presence [phone] [M06.041, M06.0 42] Social History Tobacco Use [...] Time Taken Comments Blood Pressure 121/67 03/13/2016 10:48 AM EDT Pulse 59 03/13/2016 10:48 AM EDT Temperature 36.7 ??C (98.1 ??F) 03/13/2016 10:48 AM EDT Respiratory Rate 16 03/13/2016 10:48 AM EDT Oxygen Saturation 99% 03/13/2016 10:48 AM EDT Inhaled Oxygen Concentration - - [...] encounter Progress Notes Ace Chadwick RN - 03/13/2016 2:24 PM EDT Patient Name: Monique Zamora Patient Age: 40 y.o. Birthdate: 1975 Admit date: 03/13/2016 Attending Physician: Eda att. providers found INFUSION THERAPY ADMINISTRATION NOTES DIAGNOSIS: The encounter diagnosis was Rheumatoid arthritis involving both hands, unspecified rheumatoid factorpresence [M06.041, M06.042]. REASON FOR VISIT: Rituxan Infusion SUBJECTIVE: Offers no complaints. OBJECTIVE: Last dose received on 11/10/15 VITALS: BP 121/67 (Patient Position: Sitting) Pulse 59 Temp 36.7 ??C (98.1 ??F) (Oral) Resp 16 SpO2 99% IF PAIN >5, INTERVENTION AND EFFECTIVENESS: na IV ACCESS: Peripheral IV - Single Lumen 03/13/16 1043 basilic vein right (medial side of arm) 24 gauge;3/4 in length (Active) HYDRATION: NS @ KVO 1043 off with infusion ANTIEMETICS/PREMEDS, Methylprednisolone - Does not receive the solumedrol Benadryl 25 mg IV@ See MAR for times Patient identification and orders checked against actual dose given at bedside by Ace Chadwick RN TREATMENT Rituxan 100 mg IV Administration times: See NOV second day dosing schedule used. REACTIONS None. ASSESSMENT: Tolerated infusion well. PLAN: Follow up per Rheumatology documented in this encounter Plan of Treatment Not on filedocumented as of this encounter Visit Diagnoses Diagnosis Rheumatoid arthritis involving both hand s, unspecified rheumatoid factor presence [M06.041, M06.042] documented in this encounter Administered Medications Inactive Administered Medications - up to 3 most recent administrations Medication Order MAR Action Action Date Dose Rate Site diphenhydrAMINE (BENADRYL) Given 03/13/2016 10:43 AM EDT 25 mg injection 25 mg 25 mg, Intravenous, ONCE, 1 dose, On Sat03/13/16 at 1045, FIRST INFUSION Upon arrival prior to rituximab., Outpatient Transfusion, Routine riTUXimab (RITUXAN) 1,000 mg in sodium New Bag 03/13/2016 11:0 5 AM EDT 1,000 mg chloride 0.9% 500 mL infusion 1,000 mg, Intravenous, ONCE, 1 dose, On Sat03/13/16 at 1130, FIRST INFUSION Administer intravenously at an initial [...] diagnosis documented in this encounter Care Teams Cougar Hunter Relationship Specialty Start Date End Date Derrick Johnson MD PCP - General General Internal Medicine 12/27/15 [address] [place] [address] documented as of this encounter
--- OUTSIDE RECORDS SUMMARY | 2022-08-04 16:24 | XMS_ITS | Encounter Summary ---
:1975 Author Organization [facility] [address] Care Team Providers Name Role Phone Derrick Johnson MD Primary Care Provider [phone] Encounter Details Date Type Department Care Team Description 12/28/2015 Orders Only Endocrinology at [facility] Shalonda Kim, Adrenal insufficiency [place] [address] [place] [address] ENDOCRINOLOGY [place] [id number] Social History Tobacco Use Types Packs/Day Years [...] deficiency documented in this encounter Care Teams Warehouse Order Puller Relationship Specialty Start Date End Date Derrick Johnson MD PCP - General General Internal Medicine 12/27/15 8 [address] [place] [address] documented as of this encounter
--- OUTSIDE RECORDS SUMMARY | 2022-08-04 16:24 | XMS_ITS | Encounter Summary ---
:1975 Author Organization [facility] [place] [address] Care Team Providers Name Role Phone Adrián Reynolds MD Primary Care Provider [phone] Reason for Referral High Dollar Medication (Routine) - Specialty Diagnoses / Procedures Referred By Contact Refer red To Contact Med Infusion Diagnoses Rheumatoid arthritis involving both hands, unspecified rheumatoid factor presence Rebeca Valerio, [facility] Med Infusion 3d Procedures TC RITUXIMAB, 100MG, INJECTION (RITUXAN) DO [facility] [place] [address] [place] [address] Referral ID Status Reason Start Date Expiration Date Visits V isits Requested Authorized [id number] Consult, 09/29/2015 07/18/2017 8 8 Test & Treat Encounter Details Date Type Department Care Team Description 09/29/2015 Orders Only [place] [facility] [place]y Valerio arthritis [facility] Rebeca Reeder DO involving both hands, Drive [facility] [place] [address] [address] rheumatoid factor [phone] RHEUMATOLOGY DEP T. presence [M06.041, [place], [place] [address] M06.042] Social History Tobacco [...] Name Type Priority Associated Diagnoses Order S cheduadenike Auth Request for Outpatient Referral Routine Rheumatoid arthri tis Ordered: Infusion Medication involving both 2015 hands, unspecified rheumatoid factor presence [M06.041, M06.042] documented as of this encounter Visit Diagnoses Diagnosis Rheumatoid arthritis involving both hand s, unspecified rheumatoid factor presence [M06.041, M06.042] documented in this encounter Care Teams Dental Director Relationship Specialty Start Date End Date Adrián Reynolds MD PCP - General 12/04/13 10/30/15 [address] [place] [address] documented as of this encounter
--- OUTSIDE RECORDS SUMMARY | 2022-08-04 16:25 | XMS_ITS | Encounter Summary ---
:1975 Author Organization [facility] [address] Care Team Providers Name Role Phone Adrián Reynolds MD Primary Care Provider Encounter Details Date Type Department Care Team Description 07/20/2014 Anesthesia Event Main Operating Room Jeffry Cornejo MD [facility] [place] [address] [facility] Keila Nixon MD [facility] [place]PT [place] [address] [place] [address] Anesthesia Record Procedure Summary Procedure Name Responsible Anesthesia Start Anesthesia Stop Time Anesthesiologist Time MODIFIER Yair Benjamin D, MD 07/20/14 1533 07/20/14 1857 ILEOSTOMY TAKEDOWN Events Date Time Event Comment 07/20/2014 1429 1533 Start 1536 AN Verify 1536 An Start Data 1541 An Induction 1548 An Intubation 1549 Anesthesia Ready 1610 Procedure Start 1646 Break/Relief In BETTY Orantes CRNA 1657 Break/Relief Out 1755 Handoff The patient's ch art was reviewed. The current anestetic course as well as the anesthetic plans were also review ed. HEIDE BRAN CRNA 1812 Quick Note 18 FR NG tube in serted, placement confirmed by surgeon. 53 CM @ Lt Nare. 1844 Extubation/LMA Out Extubated w/o event to at 6L. 1847 an stop data 185 Stop To PACU, report to RN. VSS. Medicated for pain with good effect . Name Total Midazolam 2 mg fentaNYL 200 mcg Propofol 150 mg Rocuronium 70 mg Ondansetron 4 mg Dexamethasone 8 mg Neostigmine 2 mg Glycopyrrolate 0.3 mg ceFAZolin (ANCEF) 2g in dextrose 5% 50 mL 2 g metroNIDAZOLE (FLAGYL) 1000 mg in sodium chloride 0.9% 200 mL (2x100 mL 500 mg bags) heparin (porcine) subcutaneous injection 5,000 Units 5 ,000 Units HYDROmorphone 1.6 mg Lactated Ringers 2,000 mL Agents Name O2 Air N2O Sevoflurane (et) Blood No blood administrations on file. Lines, Drains, and Airways Type Details Placement Removal (RETIRED By SPR20) 12/08/11; 0333; 07/18/16 12/08/11 0333 by 05/25 0000 by Incision Ese March RN Scott, Mar k W Incision 01/28/14; abdomen; 01/28/14 0000 by 07/18/16 000 0 by 07/18/16 Antonio Brewer RN Scott, Mark W Ileostomy 01/29/14; ileostomy; 01/29/14 0000 by 07/17/16 0 000 by 07/17/16 Antonio Brewer RN Scott, Mark W Incision 07/20/14; abdomen; 07/20/14 0000 by 07/18/16 000 0 by midline; 07/18/16 Trinidad Mohamud RN Scott, Ma rk W Incision 07/20/14; abdomen; 07/20/14 0000 by 07/18/16 000 0 by (ileostomy takedown); Slime Madrigal RN Scott, Mark W 07/18/16 PIV 07/20/14; 1244; 07/20/14 1244 by 07/24/14 1051 b y metacarpal vein left Dora Alexander RN Camp, Ci ndy R, RN (top of hand); [id number] catheter system; 20 gauge, 1 in length; intradermal injection; painful upon flushing; site symptomatic, catheter intact; 07/24/14; 1051 ETT Mask Ventilation: Easy 07/20/14 1548 by 07/20/14 1844 by (1); ETT Type: Cuffed; Kayla Mckinnon David C, ETT Size: 7 mm; Mac E, JITTERBUG OPERATOR JITTERBUG OPERATOR Blade: 3; Notes: Asleep, Pre-O2; Attempts: 1; Laryngoscopy Grade: 1 NG/OG Tube 07/20/14; 1551; 07/20/14 1551 by 07/21/14 1040 b y orogastric; mouth; Kayla Mckinnon Meaghan E, Inserted without E, JITTERBUG OPERATOR RN resistance, placed to low wall suction; 07/21/14; 1040 Urethral Catheter 07/20/14; 1600; 07/20/14 1600 by 07/21/14 0657 by indwelling double lumen Joan Weber, RN Bran ch, Eliana R, catheter; 100% silicone; RN 16; inserted at this facility; 1; 5; 10; none; drainage bag to dependent drainage; Inserted by Martir Mohamud RN. ; 07/21/14; 0657 documented in this encounter Social History Tobacco Use Types Packs/Day Years Used Date Smoking Tobacco: Former Cigarettes Smokeless Tobacco: Never Comments: Quit in 2008 Alcohol Use Standard Drinks/Week Comments No 0 (1 standard drink = 0.6 oz pure alcoho l) Sex Assigned at Date Recorded Not on file documented as of this encounter OR Notes Anesthesia Postprocedure Evaluation - Jeffry Mazariegos MD - 07/21/2014 9:44 AM EST Patient: Monique Zamora Procedure(s) Performed: Procedure(s): MODIFIER , ILEOSTOMY TAKEDOWN @COLECTOMY, PARTIAL, WITH REMOVAL TERMINAL ILEUM, WITH ILEOCOLOSTOMY Actual Anesthetic: general Patient location: floor Post-op pain: Adequate analgesia Post-op nausea: no nausea or vomiting Last Vitals: Filed Vitals: 07/21/14 0854 BP: Pulse: Temp: Resp: 16 Post-op cardiovascular and respiratory status: is stable Level of consciousness: awake, alert and oriented Complications: no apparent complications and tolerated the procedure well Fluid Status: normal Anesthesia Preprocedure Evaluation - Lorin Kwan MD - 07/20/2014 2:26 PM EST Pre-Anesthesia Evaluation for: Monique Zamora a 39 y.o. female. Procedure(s): @CLOSE ENTEROSTOMY, LG,SM INTESTINE, W\RESECT COLORECTAL ANAST. MODIFIER , ILEOSTOMY TAKEDOWN Patient Active Problem List Diagnosis ??? 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 Obesity ??? AMA (advanced maternal age) multigravida 35+ ??? Rheumatoid arthritis ??? Anxiety ??? Depression Past Medical History Diagnosis Date ??? Rheumatoid arthritis(714.0) ??? Depression ??? Anxiety ??? Fibromyalgia Past Surgical History Procedure Laterality Date ??? section 2000 ??? section 2003 ??? section 2011 ??? Exploratory of abdomen 01/28/2014 @EXPLORATORY LAPAROTOMY, WITH/WITHOUT BIOPSY(S) performed by Mele Alexander MD at [facility] MAIN OR ??? Intestine surg procedure unlisted 01/28/2014 HEMICOLECTOMY, WITH ILEOSTOMY performed by Mele Alexander MD at [facility] MAIN OR ??? Colonoscopy, diagnostic 06/07/2014 COLONOSCOPY, DIAGNOSTIC performed by Beni Hernandez MD at [facility] ENDOSCOPY History Substance Use Topics ??? Smoking status: Former Smoker Types: Cigarettes ??? Smokeless tobacco: Never Used Comment: Quit in 2008 ??? Alcohol Use: No History Drug Use No Allergies Allergen Reactions ??? Sulfa (Sulfonamide Antibiotics) Anaphylaxis ??? Tape, Permeable Adhesive Medications: MAR and/or home medications have been reviewed. Physical Exam: Filed Vitals: 07/20/14 1230 BP: 157/100 Pulse: 87 Temp: 36.6 ??C (97.9 ??F) Resp: 18 Body mass index is 40.04 kg/(m^2). Height: 152.4 cm (5') Weight - Scale: 92.987 kg (205 lb) Airway Assessment: Mallampati: II TM distance: >3 FB Neck ROM: full Cardiovascular Assessment: Pulmonary Assessment: Dental Assessment: - normal exam Misc Assessment: Anesthesia Plan: ASA 3 general, with a(n) intravenous induction 39 year old female presents for ileostomy reversal following hemicolectomy 01/2014. Patient is chronically immunosuppressed because of treatment for RA. Also history of depression. No cardiopulmonary disease. Appropriately NPO. Anaphylaxis to Sulfa. Region - Other Informed Consent: Anesthetic plan and risks discussed with patient and spouse. Plan discussed with JITTERBUG OPERATOR. [facility]. Assessment: documented in this encounter Plan of Treatment Not on filedocumented as of this encounter Visit Diagnoses Not on filedocumented in this encounter Administered Medications Inactive Administered Medications - up to 3 most recent administrations Medication Order MAR Action Action Date Dose Rate Site ceFAZolin (ANCEF) 2g in dextrose 5% Given 07/20/2014 3:56 PM EST 2 g 50 mL 2 g, Intravenous, EVERY 3 HOURS, 1 dose, First dose on Sat07/20/14 at 1300, For 30 minutes., Day of Surgery (Day of Procedure), Indication for (Active or Suspected): Prophylaxis dexamethasone (DECADRON) injection Given 07/20/2014 4:05 PM EST 8 mg PRN, Starting on Sat07/20/14 at 1605, Until Sat07/20/14 at 1858, Anesthesia Intra-op, Routine fentaNYL 50mcg/mL injection Given 07/20/2014 4:09 PM EST 100 mcg PRN, Starting on Sat07/20/14 at 1540, Until Sat07/20/14 at 1858, Pain, Anesthesia Intra-op, Routine Given 07/20/2014 3:40 PM EST 100 mcg glycopyrrolate (ROBINUL) injection Given 07/20/2014 6:31 PM EST 0.3 mg PRN, Starting on Sat07/20/14 at 1831, Until Sat07/20/14 at 1858, Anesthesia Intra-op, Routine heparin (porcine) subcutaneous injection Given 014 3:59 PM EST 5,000 Units 5,000 Units 5,000 Units, Subcutaneous, ONCE, 1 dose, On Sat07/20/14 at 1300, Day of Surgery (Day of Procedure), Routine HYDROmorphone (DILAUDID) injection Given 07/20/2014 6:47 PM EST 0.6 mg PRN, Starting on Sat07/20/14 at 1613, Until Sat07/20/14 at 1858, Pain, Anesthesia Intra-op, Routine Given 07/20/2014 6:40 PM EST 0.4 mg Given 07/20/2014 4:13 PM EST 0.6 mg lactated ringers infusion New Bag 07/20/2014 3:33 PM EST CONTINUOUS PRN, Starting on Sat07/20/14 at 1533, Until Sat07/20/14 at 1858, Anesthesia Intra-op metroNIDAZOLE (FLAGYL) 1000 mg in sodium Given 07/20/2014 3:56 P M EST 500 mg chloride 0.9% 200 mL (2x100 mL bags) 1,000 mg, Intravenous, EVERY 8 HOURS, 1 dose, First dose on Sat07/20/14 at 1300, Administer over 60 Minutes, Infuse two bags of 500 mg/100 mL each over 30 minutes consecutively. Total dose 1000 mg/200 mL. Document infusion initiation time of first bag., Day of Surgery (Day of Procedure), Indication for (Active or Suspected): Prophylaxis midazolam (PF) (VERSED) 1 mg/mL injectio n Given 07/20/2014 3:33 PM EST 2 mg PRN, Starting on Sat07/20/14 at 1533, Until Sat07/20/14 at 1858, Sleep, Anesthesia Intra-op, Routine neostigmine (PROSTIGMINE) injection Given 07/20/2014 6:31 PM EST 2 mg PRN, Starting on Sat07/20/14 at 1831, Until Sat07/20/14 at 1858, Anesthesia Intra-op, Routine ondansetron (ZOFRAN) injection Given 07/20/2014 5:57 PM EST 4 mg PRN, Starting on Sat07/20/14 at 1757, Until Sat07/20/14 at 1858, Nausea, Anesthesia Intra-op, Routine propofol (DIPRIVAN) 10 mg/mL bolus injection Given 07/2014 3:43 PM EST 150 mg (Anesthesia) PRN, Starting on Sat07/20/14 at 1543, Until Sat07/20/14 at 1858, Anesthesia Intra-op rocuronium (ZEMURON) injection Given 07/20/2014 4:39 PM EST 20 mg PRN, Starting on 11/11/14 at 1543, Until Sat07/20/14 at 1858, Anesthesia Intra-op, Routine Given 07/20/2014 3:43 PM EST 50 mg documented in this encounter Care Teams Medical Office Scheduler Relationship Specialty Start Date End Date Adrián Reynolds MD PCP - General 12/04/13 10/30/[address] [place] [address] documented as of this encounter
--- OUTSIDE RECORDS SUMMARY | 2022-08-04 16:25 | XMS_ITS | Encounter Summary ---
:1975 [place] [address] Care Team Providers Name Role Phone Adrián Reynolds MD Primary Care Provider [phone] Reason for Visit Reason Onset Date Comments Medication Refill 03/25/2015 Encounter Details Date Type Department Care Team Description 03/25/2015 Refill Rheumatology at [facility] [place] Rebeca Valerio [facility] [address] RHEUMATOLOGY DEPT. [phone] [place], [place] [address] (Wo rk) Social History Tobacco [...] on filedocumented in this encounter Care Teams Special Library Librarian Relationship Specialty Start Date End Date Adrián Reynolds MD PCP - General 12/04/13 10/30/15 [address] [place] [address] documented as of this encounter
--- OUTSIDE RECORDS SUMMARY | 2022-08-04 16:25 | XMS_ITS | Encounter Summary ---
:1975 Author Organization [facility] [place] [address] Care Team Providers Name Role Phone Adrián Reynolds MD Primary Care Provider [phone] Encounter Details Date Type Department Care Team Description 06/07/2014 Surgery Gastroenterology at [facility] [place] Carlos Alberto Vázquez MD COLONOSCOPY, [facility] D rive [facility] [place] [address] GENERAL SURGERY [place] [address] Social History Tobacco Use Types Packs/Day Years Used Date Smoking Tobacco: Former Cigarettes Smokeless Tobacco: Never Comments: Quit in 2008 Alcohol Use Standard Drinks/Week Comments No 0 (1 standard drink = 0.6 oz pure alcoho l) Sex Assigned at Date Recorded Not on file documented as of this encounter Last Filed Vital Signs Vital Sign Reading Time Taken Comments Blood Pressure 110/64 06/07/2014 10:50 AM EDT Pulse 77 06/07/2014 10:50 AM EDT Temperature 36.6 ??C (97.9 ??F) 06/07/2014 9:30 AM EDT Respiratory Rate 16 06/07/2014 10:50 AM EDT Oxygen Saturation 98% 06/07/2014 10:50 AM EDT Inhaled Oxygen Concentration - - Weight - - Height - - Body Mass Index - - documented in this encounter Discharge Instructions Discharge Merna Mtz RN - 06/07/2014 10:56 AM EDT Colonoscopy and polyp removal What to expect after the procedure You may feel a little more gassy or bloated than usual, this is normal. You should expect the return of normal bowel function in the next 2 to 3 days. Because some polyps were removed, you may see a little blood with the next few bowel movements, this should be a small amount ( less than a few tablespoons) and will resolve on it's own. ACTIVITY Because of the sedation that you received Your judgement and reaction time are effected ?? Go home and rest for the remainder for the day. You may resume your normal activities tomorrow ?? Change from one position to the next slowly because you may lose your balance unexpectedly. ?? Be careful on stairs, as you may be unsteady. ?? Avoid strenuous activity for 48 to 72 hrs FOR THE NEXT 24 HRS ?? DO NOT DRIVE OR OPERATE MACHINERY ?? DO NOT DRINK ALCOHOLIC BEVERAGES ?? DO NOT SIGN LEGAL DOCUMENTS ?? If you are a smoker: DO NOT SMOKE WHILE YOU ARE ALONE Diet ?? Start by eating small portions of foods that ordinarily will not upset your stomach, avoid gas producing foods for the next few days. ?? Be gentle with what you choose to start with ?? A soft diet may be helpful for the next 3 days as this may help to keep your stools soft. ?? Drink plenty of fluids ( unless your doctor has told you not to). Medicines Avoid medicines that influence the way your blood clots for the next week. These would include anti-inflammatory medicine, such as ibuprofen( Advil, Motrin) and naproxen ( Aleve). If you need something for discomfort, Tylenol (Acetaminophen) is safe if used as directed. Your Doctor will tell you whento restart your prescribed blood thinners The IV site-- slight tenderness, or redness is normal, you can use warm compresses if you get concerned. If the tenderness +/or redness increases or foul drainage and a red streak occurs, please contact your PCP immediately. When should you call for help? Call 911 anytime you think you may need emergency care. For example If you pass out (loss of consciousness) If you pass maroon or bloody stools If you have severe belly pain Call your healthcare provider or seek immediate medical care if: Your stools are black or tar like Your stools have streaks of blood that is more pronounced with each BM You have belly pain, or your belly is swollen and firm You vomit You have a fever You are very dizzy Watch closely for changes in your health, and be sure to contact your doctor if you have any problems. Your Doctor will let you know when you will need your next colonoscopy. The results of your test andyour risk for colorectal cancer will help your doctor decide how often you need to be checked. Saturday-Saturday Clinic [phone] 8a-5p Same Day Endo [phone] 7a-8p Otherwise contact [phone] and ask to speak to the cone trucker reservation agent Follow up care is a bishop part of your treatment and safety. Be sure to make and go to all appointments, and call your doctor if you are having problems. Discharge instructions reviewed with patient who expresses understanding Patient InstructionsMuCarlos Alberto brower MD - 06/07/2014 10:47 AM EDT Please see Recommendations in the Provation procedure report which is documented in the procedural note in [facility]. documented in this encounter Medications at Time of Discharge Medication Sig Dispensed Refills Start Date End Date Adalimumab (HUMIRA PEN) Inject 0.8 mLs 12 each 3 04/08/20 14 07/29/2014 40 mg/0.8 mL PnKt subcutaneously once a week. traMADol (ULTRAM) 50 mg Take 1-2 tablets by 240 tablet 3 06/201408/03/2014 tablet mouth every 6 hours as needed for Pain. methotrexate 2.5 mg Take 8 tablets by 96 tablet 3 4 11/04/2014 tablet mouth once a week. Ostomy Adhesive Convatec Stomahesive 1 Tube 12 02/05/2014 07/29/2014 PsteIndications: Paste #[id number] Attention to ileostomy Ostomy Supplies 12 Coloplast cut to fit 20 each 12 02/0507/29/2014 MiscIndications: flat pouch #[id number] Attention to ileostomy Ostomy Supplies Coloplast Elastic 40 strip 12 02/05/2014 StrpIndications: Barrier Strips, box Attention to ileostomy of 20 pouches (2 boxes/mos) #[id number] Ostomy Supplies Stomahesive Powder 1 Bottle 4 02/05/2014 1 09/28/2013 PowdIndications: #68796 Attention to ileostomy Ostomy Supplies [employer] 50 each 4 02/05/201407/29 SwabIndications: Nosting skin barrier Attention to ileostomy wipes (box/50) #[id number] methylPREDNISolone 24 mg daily x 7 180 tablet 2 01/11/2014 1 10/03/2013 (MEDROL) 4 mg tablet days, then decrease by 4 mg every 7 days ondansetron (ZOFRAN-ODT) 0 12/24/2013 07/19/2014 4 mg oral disintegrating tablet folic acid (FOLVITE) 1 mg Take 1 tablet by 90 tablet 3 12/0905/10/2016 tablet mouth daily. SUMAtriptan (IMITREX) 50 as needed. 0 09/16/2013 07/19/2014 mg tablet sertraline (ZOLOFT) 50 mg Take 100 mg by mouth 0 10/31/2015 tablet daily. clonAZEpam (KLONOPIN) 1 0 11/01/2006 1 09/18/2013 mg tablet documented as of this encounter H&P Notes Carlos Alberto Vázquez MD - 06/07/2014 9:59 AM EDT Patient Name: Aaron Zamora Patient Age: 38 y.o. Birthdate: 1975 Admit date: 06/07/2014 Attending Physician: Carlos Alberto Vázquez MD 38 yo female, S/P ascending colectomy with ileostomy and Keith closure of colon For pneumatosis intestinalis in 01/20 presents for colonoscopic surveillance of distal colon prior to reanastomosis. Hxminor rectal bleeding several yrs ago. No family hx colorectal Ca or IBD. PMH: Rhematoid arthritis ROS otherwise negative Meds: as listed in EMR (Humira, Medrol, Klonopin, Tramadol, Sertrolene, Allergies: Sulfa P/E WD, obese female with Cushingoid facies Neck: FROM Chest: Clear Cor: RR w/out M Abd: Soft, obese, nontender. Well healed midline incision. Ileostomy RLQ Ext: No calf tenderness or edema. IMP: S/P ascending colectomy for Pneumatosis, for screening colonoscopy. Details of plannned [procedure discussed. Risks and complications outlined. Pt aware that inadequate prep may preclude performing the procedure. She wishes to proceed. documented in this encounter Miscellaneous Notes Miscellaneous - Provider, Scanning - 06/07/2014 9:35 PM EDT Miscellaneous - Provider, Scanning - 06/07/2014 4:23 PM EDT OR Attestation - Carlos Alberto Vázquez MD - 06/07/2014 10:47 AM EDT Attestation:Attestation: I was present and I participated during the entire procedure (does not need to include opening and closing). CARLOS ALBERTO VÁZQUEZ Case Date: 06/07/2014 CARLOS ALBERTO VÁZQUEZ MD 06/07/2014 documented in this encounter Plan of Treatment Not on filedocumented as of this encounter Procedures Procedure Name Priority Date/Time Associated Comments Diagnosis SURGICAL PATHOLOGY Routine 06/07/2014 10:47 Resul ts for this REPORT AM EDT procedure are i n the results section. SPECIMEN TO PATHOLOGY Routine 06/07/2014 10:47 Re sults for this AM EDT procedure are i n the results section. SPECIMEN TO PATHOLOGY Routine 06/07/2014 10:47 Re sults for this AM EDT procedure are i n the results section. SPECIMEN TO PATHOLOGY Routine 06/07/2014 10:47 Re sults for this AM EDT procedure are i n the results section. COLONOSCOPY, 06/07/2014 10:00 PRE OSTOMY REVERSAL DIAGNOSTIC AM EDT COLONOSCOPY Routine 06/07/2014 9:43 AM Results f or this EDT procedure are i n the results section. documented in this encounter Results Surgical Pathology Report (06/07/2014 10:47 AM EDT) [facility] Method Time Signature Surgical CERNER Pathology ? [facility] Report ? Provider: ?? CARLOS ALBERTO VÁZQUEZ ?Pt. Name: ?? SHAHEED CARTER AARON Ag ? Acc #: ?[id number] ?Pt. MRN: ?[id number] ? Col Date: ?? 4 ? /Sex: ?1975,(38 years),Female ? Rec Date: ?? 06/07/2014 ? LOC: ?4T ? SURGICAL PATHOLOGY ? ---Pathologic Diagnosis--- ? A - Transverse colon polyp, biopsy: ? Polypoid colonic mucosa with lymphoid aggregate . ? B - Colon, 40 cm, biopsies: ? Colonic mucosa within normal limits. ? C - Colon, 20 cm, biopsy: ? Colonic mucosa within normal limits. ? Cr-PX ? 06/08/14 ? AAS ? 06/08/14 Verified by: ? Kevon Doll MD ? Pathologist ? (Electronic Si gnature) ? The attending pathologist whose signature appears o n this report has ? reviewed all diagnostic slides and has edited the hai ss and/or ? microscopic portion of the report in rendering the fi nal pathologic ? diagnosis. ? ---Gross Description--- ? A - Labeled/Fixative: Polyp biopsy (3 mm) mid transve rse, formalin. ? Quantity/Size: Single, 0.4 cm. ? Tissue Description: Soft, benton-pink tissue. ? Sections/Processing: (T1) ? B - Labeled/Fixative: Mucosal biopsy 40 cm, formalin. ? Quantity/Size: Two, 0.1 and 0.3 cm. ? Tissue Description: Soft, benton-pink tissue. ? Sections/Processing: (T1) ? C - Labeled/Fixative: Mucosal biopsy at 20 cm, formal in. ? Quantity/Size: Single, 0.3 cm. ? Tissue Description: Soft, red-benton tissue. ? Sections/Processing: (T1) ??ejr ? ---Clinical Information--- ? Specimen Submitted: ? A - Polyp biopsy (3mm) mid transverse colon ? B - Mucosal biopsy at 40cm ? C - Mucosal biopsy at 20cm ? [facility] ? Provider: ?? CARLOS ALBERTO VÁZQUEZ ?Pt. Name: ?? AARON BARTON ? Acc #: ?[id number] ?Pt. MRN: ?[id number] ? Col Date: ?? 4 ? /Sex: ?1975,(38 years),Female ? Rec Date: ?? 06/07/2014 ? LOC: ?4T ? SURGICAL PATHOLOGY ? Clinical History: ? Status post right colectomy for pneumatosis intesti nalis,? 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 Clinical Diagnosis: ? Same Specimen (Source) Anatomical Collection Method Collection Time Re ceived Time Location / / Volume Laterality 06/07/2014 10:47 AM EDT Carlos Alberto Vázquez MD PATHOLOGY/CYTOLOGY ORDERABLE S Performing Organization Address City/State/[place] [address] CERNER MILLENNIUM Specimen to Pathology (surgical or derm) (06/07/2014 10:47 AM EDT) Specimen Anatomical Collection Method Collection Time Receive d Time (Source) Location / / Volume Laterality AP Specimen 06/07/2014 10:47 06/07/2014 AM EDT 10:47 AM EDT Narrative CERNER MILLENNIUM - 06/07/2014 10:47 AM EDT Specimen requisition ordered. ??Separate Pathology report to follow Carlos Alberto Vázquez MD PATHOLOGY/CYTOLOGY ORDERABLE S Performing Organization Address [facility]/[place] [address] CERNER MILLENNIUM Specimen to Pathology (surgical or derm) (06/07/2014 10:47 AM EDT) Specimen Anatomical Collection Method Collection Time Receive d Time (Source) Location / / Volume Laterality AP Specimen 06/07/2014 10:47 06/07/2014 AM EDT 10:47 AM EDT Narrative CERNER MILLENNIUM - 06/07/2014 10:47 AM EDT Specimen requisition ordered. ??Separate Pathology report to follow Carlos Alberto Vázquez MD PATHOLOGY/CYTOLOGY ORDERABLE S Performing Organization Address City/State/[place] [address] CERNER MILLENNIUM Specimen to Pathology (surgical or derm) (06/07/2014 10:47 AM EDT) Specimen Anatomical Collection Method Collection Time Receive d Time (Source) Location / / Volume Laterality AP Specimen 06/07/2014 10:47 06/07/2014 AM EDT 10:47 AM EDT Narrative CERNER MILLENNIUM - 06/07/2014 10:47 AM EDT Specimen requisition ordered. ??Separate Pathology report to follow Carlos Alberto Vázquez MD PATHOLOGY/CYTOLOGY ORDERABLE S Performing Organization Address City/State/[place] [address] CERNER MILLENNIUM COLONOSCOPY (06/07/2014 9:43 AM EDT) Patholo gist Method Time Signature COLONOSCOPY [facility]OVATION Endoscopy Patient Name: Aaron Zamora ? Procedure Date: 06/07/2014 9:43 AM ? Date of : 1975 ? Age: 38 ? Order #: [id number] ? Procedure: ? Colonoscopy Indications: ? S/P ascending colectomy with ? ileostomy for pneumatosis ? intestinalis of uncertain cau se. Providers: ? Carlos Alberto Vázquez MD, Ese Jarrell. ? Arnold RN, Destiney Smith tt, ? Private Chef Referring MD: ?Adrián Reynolds MD Medicines: ? Midazolam 8 mg IV, Fentanyl 450 ? micrograms IV Complications: ? No immediate complications. Procedure: ? Pre-Anesthesia Assessment: ? - Mental Status Examination: alert ? and oriented. Airway Examinat ion: ? normal oropharyngeal airway a nd neck ? mobility. Respiratory Examina tion: ? clear to auscultation. CV ? Examination: RRR, no murmurs, no S3 ? or S4. ? - ASA Grade Assessment: II - A ? patient with mild systemic di sease. ? - After reviewing the risks a nd ? benefits, the patient was wild med in ? satisfactory condition to und ergo the ? procedure. ? - The anesthesia plan was to use ? moderate sedation/analgesia ? (conscious sedation). ? - Immediately prior to admini stration ? of medications, the patient w as ? re-assessed for adequacy to r eceive ? sedatives. ? - Sedation was administered b y an ? endoscopy nurse. The sedation level ? attained was moderate. ? - The heart rate, respiratory rate, ? oxygen saturations, blood pre ssure, ? adequacy of pulmonary ventila tion, ? and response to care were mon itored ? throughout the procedure. ? - The physical status of the patient ? was re-assessed after the pro cedure. ? The procedure, indications, b enefits, ? risks and alternatives were e xplained ? to the patient. Specifically ? discussed were potential ? complications including, but not ? limited to, bleeding, perfora tion, ? infection, missing a cancer, and ? adverse medication reactions. The ? patient was placed in the lef t ? lateral decubitus position, a nd a ? digital rectal exam was perfo rmed. ? The Colonoscope was inserted in the ? anus and under direct visuali zation, ? advanced to the proximal end of the ? divided colon (transverse col on, 80 ? cm) for evaluation. This was the ? intended extent. Careful insp ection ? was made as the colonoscope w as ? withdrawn. The colonoscopy wa s ? performed without difficulty. The ? patient tolerated the procedu re ? fairly well. The quality of t he bowel ? preparation was good. ? Findings: ? The perianal and digital rectal examinations were [...] in the mid ? transverse colon. Resected an d ? retrieved. ? - The examination was otherwi se ? normal. ? - Mild ? diversion colitis no ari in ? more proximal portion of resi dual ? colon Recommendation: ?- Discharge patient to home. ? Carlos Alberto Vázquez MD 06/07/2014 10:58 AM This report has been signed electronically. Number of Addenda: 0 Note Initiated On: 06/07/2014 9:43 AM Specimen (Source) Anatomical Collection Method Collection Time Re ceived Time Location / / Volume Laterality 06/07/2014 9:43 AM EDT Adrián Reynolds MD GENERAL SURGICAL ORDERABLES Performing Organization Address City/State/ZIP Code Phon e Number [employer] documented in this encounter Visit Diagnoses Not on filedocumented in this encounter Administered Medications Inactive Administered Medications - up to 3 most recent administrations Medication Order MAR Action Action Date Dose Rate Site fentaNYL 50mcg/mL injection Given 06/07/2014 10:27 AM EDT 50 mcg ONCE PRN, Starting on Sat06/07/14 at 1006, Until Sat06/07/14 at 1135, Pain, Intra-Operative (Intra-Procedure), Routine Given 06/07/2014 10:24 AM EDT 50 mcg Given 06/07/2014 10:21 AM EDT 50 mcg lactated ringers infusion New Bag 06/07/2014 9:33 AM EDT 100 mL/hr 100 mL/hr 100 mL/hr, Intravenous, CONTINUOUS, Starting on Sat06/07/14 at 0945, Until Sat06/07/14 at 1135, Endoscopy (Day of Procedure) midazolam (PF) (VERSED) 1 mg/mL injectio n Given 06/07/2014 10:27 AM EDT 0.5 mg ONCE PRN, Starting on Sat06/07/14 at 1006, Until Sat06/07/14 at 1135, Sleep, Intra-Operative (Intra-Procedure), Routine Given 06/07/2014 10:24 AM EDT 0.5 mg Given 06/07/2014 10:21 AM EDT 1 mg documented in this encounter Active and Recently Administered Medications Times are shown in EDT. Continuous Medication Order 06/05/2014 06/06/2014 06/07/2014 lactated ringers infusion (CANCELED) 0933 (New Bag - Provider: Douglas Sinclair RN) 100 mL/hr, at 100 mL/hr, Intravenous, CO NTINUOUS, Starting Sat06/07/14 at 0945, Until Sat06/07/14 at 1135, Endo (Day of Procedure) PRN Medication Order 06/05/2014 06/06/2014 06/07/2014 fentaNYL 50mcg/mL injection (CANCELED) 1006 (Given - Provider: Ese Barrett RN)1009 (Given - Provider: Ese Barrett RN)1012 (Given - Provider: Ese Barrett RN)1015 (Given - Provider: Ese Barrett RN)1018 (Given - Provider: Ese Barrett RN) ONCE PRN, Starting Sat06/07/14 at 1006, Until Sat06/07/14 at 1135, Pain, Intra- Operative (Intra-Procedure), Routine 102 1 (Given - Provider: Ese Barrett RN)1024 (Given - Provider: Ese Barrett RN)1027 (Given - Provider: Ese Barrett RN) midazolam (PF) (VERSED) 1 mg/mL injection (CANCELED) 1006 (Given - Provider: Ese Barrett RN)1009 (Given - Provider: Ese Barrett RN)1012 (Given - Provider: Ese Barrett RN)1015 (Given - Provider: Ese Barrett RN)1018 (Given - Provider: Ese Barrett RN) ONCE PRN, Starting Sat06/07/14 at 1006, Until Sat06/07/14 at 1135, Sleep, Intra- Operative (Intra-Procedure), Routine 102 1 (Given - Provider: Ese Barrett RN)1024 (Given - Provider: Ese Barrett RN)1027 (Given - Provider: Ese Barrett RN) documented in this encounter Care Teams Mechanic Driver Relationship Specialty Start Date End Date Adrián Reynolds MD PCP - General 12/04/13 10/30/15 [address] [place] [address] documented as of this encounter
--- OUTSIDE RECORDS SUMMARY | 2022-08-04 16:25 | XMS_ITS | Encounter Summary ---
:1975 Author Organization [facility] [place] [address] Care Team Providers Name Role Phone Adrián Reynolds MD Primary Care Provider [phone] Reason for Visit Reason Onset Date Comments Medication Refill 11/04/2014 Encounter Details Date Type Department Care Team Description 11/04/2014 Refill Rheumatology at [facility] [place] Deja Ibanez, [place] [address] Social History Tobacco Use Types Packs/Day [...] on filedocumented in this encounter Care Teams Mix Crusher Operator Relationship Specialty Start Date End Date Adrián Reynolds MD PCP - General 12/04/13 10/30/15 [facility] [place] [address] documented as of this encounter
--- OUTSIDE RECORDS SUMMARY | 2022-08-04 16:25 | XMS_ITS | Encounter Summary ---
:1975 Author Organization [facility] [place] [address] Care Team Providers Name Role Phone Adrián Reynolds MD Primary Care Provider [phone] Encounter Details Date Type Department Care Team Description 12/23/2014 Hospital Encounter Med Infusion at CLINIC, DR DENISE Adams umatoid arthritis [facility] [place]etta Martinez MD [facility] [place] [address] [place] [address] Social History Tobacco Use Types Packs/Day Years Used Date Smoking Tobacco: Former Cigarettes Smokeless Tobacco: Never Comments: Quit in 2008 Alcohol Use Standard Drinks/Week Comments No 0 (1 standard drink = 0.6 oz pure alcoho l) Sex Assigned at Date Recorded Not on file documented as of this encounter Last Filed Vital Signs Vital Sign Reading Time Taken Comments Blood Pressure 132/80 12/23/2014 10:41 AM EDT Pulse 88 12/23/2014 10:41 AM EDT Temperature 36.8 ??C (98.2 ??F) 12/23/2014 10:41 AM EDT Respiratory Rate 18 12/23/2014 10:41 AM EDT Oxygen Saturation 99% 12/23/2014 10:41 AM EDT Inhaled Oxygen Concentration - - Weight - - Height - - Body Mass Index - - documented in this encounter Medications at Time of Discharge Medication Sig Dispensed Refills Start Date End Date MULTIVITAMIN/IRON/FOLIC ACID Take by mouth 0 (MULTI-VIRAL ORAL) daily. traMADol (ULTRAM) 50 mg Take 1-2 tablets 240 tablet 3 201403/25/2015 Tablet by mouth every 6 hours as needed for Pain. methotrexate 2.5 mg Tablet Take 10 tablets [...] encounter Progress Notes Ace Chadwick RN - 12/23/2014 11:10 AM EDT Patient Name: Monique Zamora Patient Age: 39 y.o. Birthdate: 1975 Admit date: 12/23/2014 Attending Physician: Dr Denise Valverde INFUSION THERAPY ADMINISTRATION NOTES DIAGNOSIS: The encounter diagnosis was Rheumatoid arthritis. REASON FOR VISIT: # 15 SUBJECTIVE: Offers no complaints. OBJECTIVE: Last dose received on 12/01/14 VITALS: BP 132/80 Pulse 88 Temp(Src) 36.8 ??C (98.2 ??F) (Oral) Resp 18 SpO2 99% IF PAIN >5, INTERVENTION AND EFFECTIVENESS: na IV ACCESS: Peripheral IV - Single Lumen 12/23/14 1050 median vein left (underside of arm) 24 gauge;3/4 in length (Active) HYDRATION: NS @ KVO 1050 off with infusion ANTIEMETICS/PREMEDS, Methylprednisolone 100 mg IV @ See MAR Benadryl 25 mg IV@ See MAR Patient identification and orders checked against actual [...] Date Dose Rate Site diphenhydrAMINE (BENADRYL) Given 12/23/2014 11:00 AM EDT 25 mg injection 25 mg 25 mg, Intravenous, ONCE, 1 dose, On Aditi 12/23/14 at 1045, SUBSEQUENT INFUSION Upon arrival prior to rituximab., Outpatient Transfusion, Routine methylPREDNISolone sodium succinate (PF) Given 12/23/2014 10:50 AM EDT 100 mg (solu-MEDROL) injection 100 mg 100 mg, Intravenous, ONCE, 1 dose, On Aditi 12/23/14 at 1045, SUBSEQUENT INFUSION Upon arrival prior to rituximab., Outpatient Transfusion riTUXimab (RITUXAN) 1,000 mg in sodium New Bag 12/23/2014 11:1 5 AM EDT 1,000 mg chloride 0.9% 500 mL infusion 1,000 mg, Intravenous, ONCE, 1 dose, On Aditi 12/23/14 at 1130, SUBSEQUENT INFUSION Administer at an initial rate of 100 mg/hour. Increase by 100 mg/hour at 30 minute intervals to a maximum of 400 mg/hour, as tolerated. If hypersensitivity or an infusion-related event develops, the infusion should be temporarily slowed or interrupted. Upon improvement of the patient's symptoms, the infusion can be continued at one-half the previous rate., Outpatient Transfusion, Indication: see associated diagnosis documented in this encounter Care Teams Ship Unloader Relationship Specialty Start Date End Date Adrián Reynolds MD PCP - General 12/04/13 10/30/[id number] [place] [address] documented as of this encounter
--- OUTSIDE RECORDS SUMMARY | 2022-08-04 16:25 | XMS_ITS | Encounter Summary ---
:1975 Author Organization [facility] [place] [address] Care Team Providers Name Role Phone Adrián Reynolds MD Primary Care Provider [phone] Encounter Details Date Type Department Care Team Description 11/04/2014 [place] [facility]y Valerio [facility] Ag Reeder DO arthritis(714.0) [place] [address] [facility] [phone] RHEUMATOLOGY [place], [place] [address] Social History Tobacco Use Types Packs/Day Years Used Date Smoking Tobacco: Former Cigarettes Smokeless Tobacco: Never Comments: Quit in 2008 Alcohol Use Standard Drinks/Week Comments No 0 (1 standard drink = 0.6 oz pure alcoho l) Sex Assigned at Date Recorded Not on file documented as of this encounter Progress Notes Rebeca Valerio DO - 11/04/2014 2:13 PM EST Outpatient Rheumatology Followup HPI: 37 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 The patient was diagnosed with seropositive RA in 2006 and was seen here once by Dr. Bello. Was following with a plate and frame filter operator at [facility]. Her RA control before was good on HCQ, MTX,and enbrel. She had very few flares on this combo. Prior xrays per patient showed no erosions. Unfortunately also got on this combination (her OCP was recalled b/c it was packaged improperly) and her prior plate and frame filter operator suggested aborting the . The patient opted not to do that and has been following her with BIOLOGICAL SCIENCE TECHNICIAN and her is advancing normally. She stopped all RA meds ataround 6 weeks gestation which is when she found out she was . Her RA was OK during her 1st trimester but during her 2nd trimester her pain worsened requiring moderate doses of prednisone. I ended up putting her back on enbrel during her . She delivered her son 7 weeks prematurely after she had a placental abruption and emergency . Methotrexate was restarted after I spoke with her in January 2012. Interim History: Last seen in May. Had her colostomy reversed. Having diarrhea after eating. Is taking 12 mg of medrol daily. Can not go down to 8 mg. She feels manic with this dose. She is back on MTX and humira since early August. Her left shoulder hurts, her feet hurt also. PMH: seropositive ra dX in 2006, PTSD, fibromyalgia, 3 c-sections, cholecystectomy, kidney stones, migraines, pneumatosis coli s/p right hemicolectomy. 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 Stoma is intact and draining Mouth: MMM, no oral ulcers Eyes: normal sclera Joints: her 2nd and 3rd MCPs are swollen and tender. Better shoulder ROM today. Elbows nontender. B/l knees are tender. Assessment and Plan: 1. RF+, CCP+ RA 2. PTSD, depression and anxiety 3. 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 Her RA is not under control. Has tried 2 TNF inhibitors and a 3rd is likely not going to produce anybenefit. Stop humira. Start rituxan Decrease medrol to 10 mg daily Labs today. Increase mtx to 10 tabs RTC in 3 months. documented in this encounter Miscellaneous Notes Addendum Note - Jossie Blue - 11/04/2014 2:51 PM EST Addended by: JOSSIE BLUE on: 11/04/2014 02:51 PM Modules accepted: Orders documented in this encounter Plan of Treatment Not on filedocumented as of this encounter Procedures Procedure Name Priority Date/Time Associated Comments Diagnosis HEMOGRAM Routine 11/04/2014 2:50 PM Rheumatoid Results f or this EST arthritis(714.0) procedure a re in the results section. DIFFERENTIAL, Routine 11/04/2014 2:50 PM Rheumatoid Results for this AUTOMATED EST arthritis(714.0) procedure a re in the results section. SEDIMENTATION RATE Routine 11/04/2014 2:50 PM Rheumatoid Res ults for this EST arthritis(714.0) procedure a re in the results section. CBC (WITH DIFF) Routine 11/04/2014 2:50 PM Rheumatoid EST arthritis(714.0) CRP, CARDIAC RISK (HS Routine 11/04/2014 2:50 PM Rheumatoid Results for this CRP) EST arthritis(714.0) procedure a re in the results section. COMPREHENSIVE Routine 11/04/2014 2:50 PM Rheumatoid Results for this METABOLIC PANEL EST arthritis(714.0) procedur e are in (NON-FASTING) the results section. documented in this encounter Results (ABNORMAL) Differential, Automated (11/04/2014 2:50 PM EST) [facility] Method Time Signature Neutrophils % 81.8 % CERNER MILLENNIUM Neutr Abs (ANC) 9.88 (H) 1.50 - CERNER 6.30 MILLENNIUM x10(3)/mc L Lymphocytes % 13.5 % CERNER MILLENNIUM Lymphocytes Abs 1.6 1.0 - 3.6 CERNER x10(3)/mc MILLENNIUM L Monocytes % 3.6 % CERNER MILLENNIUM Monocyte Abs 0.4 0.2 - 1.0 CERNER x10(3)/mc MILLENNIUM L Eosinophils % 0.2 % CERNER MILLENNIUM Eosinophils Abs 0.0 0.0 - 0.5 CERNER x10(3)/mc MILLENNIUM L Basophils % 0.2 % CERNER MILLENNIUM Basophils Abs 0.0 0.0 - 0.2 CERNER x10(3)/mc MILLENNIUM L Immature Gran % 0.70 % CERNER MILLENNIUM Comment: Immature granulocytes(IG's)percentage an d absolute count will include metamyelocytes, myelocytes, and promyelo cytes. Blood smears from CBCs yielding IG's will be scanned manually for concor dance. If this scan disagrees with the automated IG or if promyelocytes are not ed, a manual differential will be performed. Helen Gran Abs 0.09 (H) 0.00 - 0.05 x10(3)/mcL CER NER MILLENNIUM Specimen Anatomical Collection Method Collection Time Receive d Time (Source) Location / / Volume Laterality Blood specimen 11/04/2014 2:50 PM 015 2:58 (specimen) EST PM EST Resulting Agency Comment Spec In Lab Rebeca Valerio DO HEMATOLOGY ORDERABLES Performing Organization Address City/State/[place] [address] CERNER MILLENNIUM (ABNORMAL) Hemogram (11/04/2014 2:50 PM EST) P athologist Signature WBC 12.1 (H) 4.0 - 10.0 CERNER x10(3)/mcL MILLENNIUM RBC 4.81 3.93 - CERNER 5.22 MILLENNIUM x10(6)/mcL Hemoglobin 12.5 11.2 - CERNER 15.7 gm/dL MILLENNIUM Hematocrit 39.1 34.0 - CERNER 45.0 % MILLENNIUM MCV 81.3 79.0 - CERNER 94.0 fL MILLENNIUM MCH 26.0 (L) 26.6 - CERNER 32.2 pg MILLENNIUM MCHC 32.0 32.0 - CERNER 36.5 gm/dL MILLENNIUM Platelets 244 145 - 370 CERNER x10(3)/mcL MILLENNIUM RDWSD 41.8 35.0 - CERNER 46.0 fL MILLENNIUM RDWCV 14.1 10.9 - CERNER 14.4 % MILLENNIUM MPV 9.9 9.0 - 12.0 CERNER fL MILLENNIUM Specimen Anatomical Collection Method Collection Time Receive d Time (Source) Location / / Volume Laterality Blood specimen 11/04/2014 2:50 PM 015 2:58 (specimen) EST PM EST Resulting Agency Comment Spec In Lab Rebeca M Iman DO HEMATOLOGY ORDERABLES Performing Organization Address City/State/[place] [address] CERNER MILLENNIUM Sedimentation rate (11/04/2014 2:50 PM EST) P athologist Signature Sed Rate 12 0 - 20 CERNER mm/hr MILLENNIUM Specimen Anatomical Collection Method Collection Time Receive d Time (Source) Location / / Volume Laterality Blood specimen 11/04/2014 2:50 PM 015 2:58 (specimen) EST PM EST Resulting Agency Comment Spec In Lab Rebeca M Iman DO HEMATOLOGY ORDERABLES Performing Organization Address City/[facility]/[place] [address] CERNER MILLENNIUM High Sensitivity CRP (11/04/2014 2:50 PM EST) P athologist Signature CRP High Sens 5.4 mg/L CERNER MILLENNIUM Comment: Interpretations: 1) For accurate cardiac risk assessment, the average of 2 values >2 weeks apart should be obtained (ref 1&2). A value >1 0 mg/L indicates an inflammatory condition, concentrations >10 mg/L shoul d not be used for cardiac risk assessment. ?<1.0 mg/L: low risk ?1.0 - 3.0 mg/L: moderate risk ?>3.0 mg/L: high risk groups for fu ture cardiovascular events 2) The general reference range of appare ntly healthy individuals using this test is <5.0 mg/L (derived from the test package insert) References: 1. Morgan YEE et. al. ??AHA/CDC Scientif ic Statement: Markers of Inflammation and Cardiovascular Disease. ??Circulatio n 2003; 107:499-511 2. Ridker PM. ??Clinical applications of C-reactive protein for cardiovascular disease detection and prevention. ??Circ ulation 2003; 107:363-369 Specimen Anatomical Collection Method Collection Time Receive d Time (Source) Location / / Volume Laterality Blood specimen 11/04/2014 2:50 PM 015 2:58 (specimen) EST PM EST Resulting Agency Comment Spec In Lab Rebeca Valerio DO CHEMISTRY ORDERABLES Performing Organization Address City/State/ZIP Code Phon e Number [place] [id number] CERNER MILLENNIUM Comprehensive metabolic panel (non-fasting) (11/04/2014 2:50 PM EST) P athologist Signature Glucose Lvl 114 60 - 199 CERNER mg/dL MILLENNIUM Comment: Diabetes: >=200 mg/dL plus symp toms BUN 18 8 - 18 mg/dL CERNER MILLENNIUM Creatinine 0.71 0.70 - 1.20 mg/dL CERNER MILL ENNIUM Comment: Please note that the pediatric reference intervals supplied above were not validated at [facility]. Results from pediatri c patients should be interpreted in conjunction to the patient's age, height and muscle mass. Sodium 140 135 - 145 mmol/L CERNER ARIS NIUM Potassium 4.1 3.5 - 5.0 mmol/L CERNER RAIS NIUM Comment: Please note: ??Patients with WBC >100,00 0 may have falsely elevated Potassium levels. ??For accurate Potassium quantif ication in these patients send serum separator tube (gold top) for subsequent determinations. ??Contact the Clinical Chemistry Laboratory if there are any qu estions. Chloride 101 98 - 107 mmol/L CERNER MILLENN IUM CO2 26 22 - 31 mmol/L CERNER MILLENNI UM Anion Gap 13 5 - 15 mmol/L CERNER MILLENNIU M Calcium 9.2 8.5 - 10.5 mg/dL CERNER ARIS NIUM Total Protein 7.4 6.4 - 8.3 gm/dL CERNER MIL LENNIUM Albumin 4.2 3.2 - 5.2 gm/dL CERNER MILLENN IUM AST 18 0 - 30 unit/L CERNER MILLENNIU M ALT 22 0 - 30 unit/L CERNER MILLENNIU M Alk Phos 98 40 - 104 unit/L CERNER MILLENN IUM Total Bilirubin 0.2 0.2 - 1.3 mg/dL MICHELLE M ILLENNIUM Bili, Direct 0.1 0.0 - 0.3 mg/dL MICHELLE MILL ENNIUM Estimated GFR >60 >=60 MICHELLE BABCOCKCARLIEMAYCO Reeder Comment: This estimated GFR (eGFR) value was calc ulated using the MDRD equation which has been validated on patients between t he ages of 18 and 70. The MDRD should not be used to assess kidney function in patients < 18 years of age or in patients with extremes of body mass, or in patients with acute kidney failure. This value should be multiplied by 1.2 f or patients. For further information please copy and past e the following links into your internet browser. http://[employer]/DHnkdep http://[employer]/DHMCnkf Specimen Anatomical Collection Method Collection Time Receive d Time (Source) Location / / Volume Laterality Blood specimen 11/04/2014 2:50 PM 015 2:58 (specimen) EST PM EST Resulting Agency Comment Spec In Lab Rebeca Valerio DO CHEMISTRY ORDERABLES Performing Organization Address City/State/ZIP Code Phon e Number [address] MICHELLE ESCALANTE documented in this encounter Visit Diagnoses Diagnosis Rheumatoid arthritis(714.0) Rheumatoid arthritis documented in this encounter Care Teams Crochet Beader Relationship Specialty Start Date End Date Adrián Reynolds MD PCP - General 12/04/13 10/30/[address] [place] [address] documented as of this encounter
--- OUTSIDE RECORDS SUMMARY | 2022-08-04 16:25 | XMS_ITS | Encounter Summary ---
:1975 Author Organization [facility] [place] [address] Care Team Providers Name Role Phone Adrián Reynolds MD Primary Care Provider [phone] Reason for Visit Reason Comments Pharyngitis Otalgia Encounter Details Date Type Department Care Team Description 08/16/2014 Telephone General Surgery at [facility] Maxine Murphy RN Pharyngitis; [place] [address] Social History Tobacco Use Types Packs/Day Years Used Date Smoking Tobacco: Former Cigarettes Smokeless Tobacco: Never Comments: Quit in 2008 Alcohol Use Standard Drinks/Week Comments No 0 (1 standard drink = 0.6 oz pure alcoho l) Sex Assigned at Date Recorded Not on file documented as of this encounter Miscellaneous Notes Telephone Encounter - Maxine Murphy RN - 08/16/2014 8:49 AM EST Ms. Zamora calls today to report a fever of 101.7, chills, right ear pain, and a sore throat to the point that it is too painful for her to swallow. I recommended she contact her PCP for an urgent appointment. She agrees. documented in this encounter Plan of Treatment Not on filedocumented as of this encounter Visit Diagnoses Not on filedocumented in this encounter Care Teams Scow Hand Relationship Specialty Start Date End Date Adrián Reynolds MD PCP - General 12/04/13 10/30/[address] [place] [address] documented as of this encounter
--- OUTSIDE RECORDS SUMMARY | 2022-08-04 16:25 | XMS_ITS | Encounter Summary ---
:1975 Author Organization [facility] [place] [address] Care Team Providers Name Role Phone Adrián Reynolds MD Primary Care Provider [phone] Reason for Visit Reason Onset Date Comments Medication Refill 08/03/2014 Encounter Details Date Type Department Care Team Description 08/03/2014 Refill Rheumatology at [facility] [place] Rebeca Valerio [facility] [place] [address] [place] [address] RHEUMATOLOGY DEPT. [phone] [place], [place] [address] (Wo rk) Social History Tobacco Use Types Packs/Day Years Used Date Smoking Tobacco: Former Cigarettes Smokeless Tobacco: Never Comments: Quit in 2008 Alcohol Use Standard Drinks/Week Comments No 0 (1 standard drink = 0.6 oz pure alcoho l) Sex Assigned at Date Recorded Not on file documented as of this encounter Miscellaneous Notes Telephone Encounter - Deja Ibanez RN - 08/03/2014 3:48 PM EST Call received from Shanedimitris requesting Medrol taper. She is currently off Humira for another month due to surgery and has been on Medrol 16 mg for the last 8 days, she thinks she can decrease to 12 mg. She would like a refill on Tramadol as well. She states that her surgeon is ok with her taking Medrol. She is also taking MTX. We can call Tramadol in if she is out or it can wait until returns Saturday. i have asked Monique to call tomorrow for follow up with Candy. documented in this encounter Plan of Treatment Not on filedocumented as of this encounter Visit Diagnoses Not on filedocumented in this encounter Care Teams Licensed Retail Supervisor Relationship Specialty Start Date End Date Adrián Reynolds MD PCP - General 12/04/13 10/30/[address] [place] [address] documented as of this encounter
--- OUTSIDE RECORDS SUMMARY | 2022-08-04 16:25 | XMS_ITS | Encounter Summary ---
:1975 Author Organization [place] [address] Care Team Providers Name Role Phone Adrián Bautista MD Primary Care Provider [phone] Encounter Details Date Type Department Care Team Description 07/20/2014 Surgery Main Operating Room Deepthi Alexander MD MODIFIER , [place] [address] [place] [address] [phone] Social History Tobacco Use Types Packs/Day Years Used Date Smoking Tobacco: Former Cigarettes Smokeless Tobacco: Never Comments: Quit in 2008 Alcohol Use Standard Drinks/Week Comments No 0 (1 standard drink = 0.6 oz pure alcoho l) Sex Assigned at Date Recorded Not on file documented as of this encounter Last Filed Vital Signs Vital Sign Reading Time Taken Comments Blood Pressure 113/66 07/29/2014 9:09 AM EST Pulse 74 07/29/2014 9:09 AM EST Temperature 36.8 ??C (98.2 ??F) 07/29/2014 9:09 AM EST Respiratory Rate 16 07/29/2014 9:09 AM EST Oxygen Saturation 97% 07/29/2014 9:09 AM EST Inhaled Oxygen Concentration - - Weight 93 kg (205 lb) 07/20/2014 12:30 PM EST Height 152.4 cm (5') 07/20/2014 12:30 PM EST Body Mass Index 40.04 07/20/2014 12:30 PM EST documented in this encounter Discharge Instructions Patient InstructionsJocelyne Mejia MD - 07/23/2014 8:04 PM EST Discharge Instructions CALL YOUR PHYSICIAN IF: ??? You have a fever greater than 101 degrees Farenheit within one month of your surgery. ? ? You have diarrhea or vomiting for >24 hours, or stop having bowel movements and passing flatus ??? You have worsening pain, not controlled with your pain medication. ??? You develop redness, swelling, or new drainage from your wound. Prescriptions: You have been prescribed narcotic pain medications (Dilaudid) to control your discomfort after surgery. ? DO NOT use alcohol, drive, or operate heavy or complex machinery while taking these medications. ? Narcotic pain medications may cause constipation. ? Stool softeners, such as Colace; mild laxatives, such as Milk of Magnesia, Sennakot, or Ducolax tabs; or enemas may be used if needed and are [id number] (OTC) medications available at most local pharmacies. Prunes or prune juice, taken daily, can also be helpful for constipation treatment or pr evention and are available at most supermarkets. Driving Restrictions: - No driving if you are too sore from surgery to enter or exit your vehicle comfortably, or if you are too sore to easily check your blind spot. No driving while using prescription pain medications Activities: ? Discuss return to work or school with your surgeon. ? No heavy lifting. You may lift what is comfortable to lift with one arm. Nothing greater than 15 pounds until re-evaluated by your physician. Diet: ? Eat a well-balanced diet. Fresh fruits, vegetables and fiber-containing foods are recommended. This will assist in wound healing. Recommendations: ? Take it easy for two weeks. Remember, If it hurts, don't do it. ? Take several slow, short walks each day for the first two weeks, and gradually increase your distance. We recommend at least 4 times a day. Wound Care: ? You can shower per usual routine and wash the incision area gently. Pat incision dry with a clean,dry towel. ? Do not submerge the wound under water (avoid spas, pools and bathtubs) until it is fully healed. ? Do not use creams, oils, or ointments on the wound. ? Keep the wound open to air if it is not draining. Comfort: ? Some incision soreness can be expected. ? Take your pain medication as needed and prescribed. ? Taper use of pain medication as pain lessens. Follow-up Appointments: A Follow-up appointment will be scheduled with Dr. Alexander in the [facility] the first week in August. You will recieve a letter in the mail and/or a phone call with information about this appointment. Please call [phone] (clinic number for appointments) to confirm date and time of your appointment, or if you do not receive information about your appointment in a timely manner. Your surgeon may not be Mechanical Technician, especially during the night or on weekends, so be ready to describe yourself and your surgery when you call. CC: Primary Care Physician: ADRIÁN BAUTISTA MD documented in this encounter Medications at Time of Discharge Medication Sig Dispensed Refills Start Date End Date MULTIVITAMIN/IRON/FOLIC Take by mouth 0 ACID (MULTI-VIRAL ORAL) daily. HYDROmorphone (DILAUDID) 2 Take 1-2 tablets 90 tablet 0 08/13/2014 mg Tablet by mouth every 4 hours as needed for Pain (for mild pain). ondansetron (ZOFRAN, Take 1 tablet by 20 tablet 0 201308/13/2014 HYDROCHLORIDE,) 4 mg Tablet mouth every 8 hours as needed for Nausea. clonazePAM (KLONOPIN) 1 mg Take 1 mg by 0 10/31/2015 Tablet mouth 2 times daily as needed for Anxiety. acetaminophen (TYLENOL) 500 Take 1,000 mg by 0 07/24/2017 mg Tablet mouth every 6 hours as needed for Pain. traMADol (ULTRAM) 50 mg Take 1-2 tablets 240 tablet 3 201308/03/2014 tablet by mouth every 6 hours as needed for Pain. methotrexate 2.5 mg tablet Take 8 tablets by 96 tablet 3 11/04/2014 mouth once a week. methylPREDNISolone (MEDROL) 24 mg daily x 7 180 tablet 2 01/201408/03/2014 4 mg tablet days, then decrease by 4 mg every 7 days folic acid (FOLVITE) 1 mg Take 1 tablet by 90 tablet 3 12/0905/10/2016 tablet mouth daily. sertraline (ZOLOFT) 50 mg Take 100 mg by 0 10/31/2015 tablet mouth daily. documented as of this encounter Progress Notes Slime Madrigal RN - 07/29/2014 3:30 PM EST Patient discharged to home with [facility] services. IV removed, site benign. My assessment remains unchanged from my previous assessment. Patient denies chest pain and shortness of breath. Discussed pain management with patient, pain tolerable. Patient medicated prior to discharge. Patient has all belongings. Patient received discharge summary and prescriptions. These were reviewed. All questions answered.Patient encouraged to call with questions or concerns. Patient discharged to home with family. Discharge Summary was faxed, RN called report to [facility]. Denny Shook - 07/29/2014 2:53 PM EST Puller Out Encounter Note Patient Name: Aaron Zamora : [id number] MR#: [id number] Admit Date: 07/20/2014 12:07 PM Hospital Day 9 days Narrative:Visited to introduce and assess acceptance of Puller Out services. Pt was awake, alert, oriented and in chair. Pt says that she is feeling better and she is living with her and has three children and youngest is three years old. Pt said that she was working but because of health issues she was not able to carry on but now she is hoping to get better and go back to work again. Pt askfor prayers and blessings. Assessment:Patient coping positively with stresses of illness/hospitalization at this time. Pt has purpose of life and thankful to God for her children. Pt was tearful as she was talking about her health issues and when her third child was born and has many complications. Pt maurizio and family is sourceof source of courage an strength. Intervention and Outcome: Provided emotional support and encouraging presence.[facility] Out services accepted.Conversation to build trusting relationship.Provided prayer.Provided pastoral presence.Provided spiritual guidance. Pt expressed thankfulness for visit and asked to visit again. Follow-up: yes Time in Direct Care:30 Mins Denny Shook 07/29/2014 Janette Fernandez - 07/29/2014 1:26 PM EST Nutrition Services - Initial Note Aaron Zamora : 1975 AGE: 39 y.o. Patient Active Problem List Diagnosis Date Noted ??? Pneumatosis coli 02/02/2014 Priority: High ??? Obesity 09/08/2011 ??? AMA (advanced maternal age) multigravida 35+ 08/25/2011 ??? Rheumatoid arthritis ??? Anxiety ??? Depression Reason for Nutrition Intervention: Hospital Day 9 Diet Order: Regular Appetite: Fair Food allergies: NKFA Chewing/Swallowing difficulty: None Height: 152.4cm Weight: 92.9kg Body mass index is 40.04 kg/(m^2). Assessment: Patient stated her appetite depends on if she is nauseas. She reported sticking to blandfoods for now and slowly increasing her appetite. Patient had eaten almost all of lunch tray during visit. Encouraged patient to contact Nutrition Services if further questions arise. Nutrition Plan: Continue Current Diet Recommend Daily Multi Vitamins. Monitor weight. Encourage good po intake. Support and encouragement provided. Nutrition services to follow weekly thru hospital course unless consulted in the interim. STEFAN Nation Jocelyne Mejia MD - 07/29/2014 10:14 AM EST ACUTE CARE SURGERY SERVICE INPATIENT PROGRESS NOTE ID: Aaron Zamora ( ) is a 39 y.o. female admitted on 07/20/2014 s/p ileostomy takedown on 07/20/14. 24hr events: -ambulating daily -advanced to regular yesterday, tolerated some PO intake but had abdominal cramping in afternoon, reglan was also started but thought to be contributing to cramps and was d/c'd -ezekiel removed -c-diff sent given immunosuppression and loose stool S: feeling well, continues to pass flatus and stool, stool is becoming more solid. Vitals: Last value Range last 24 hrs Temperature Temp: 37.1 ??C (98.8 ??F) Temp: [36.9 ??C (98.4 ??F)-37.4 ??C (99.3 ??F)] Heart Rate Heart Rate: 70 Heart Rate: [66-70] Blood Pressure BP: 135/78 mmHg BP: (126-135)/(66-78) Respiratory Rate Resp: 18 Resp: [16-18] SpO2 SpO2: 97 % SpO2: [97 %-100 %] RA Intake and Output: Last 24 Current Shift Last 3 Shifts 07/28 07 - 07/29 0700 In: 1476 [P.O.:1320] Out: - UOP not recorded overnight 07/27 190 - 07/29 0700 In: 1956 [P.O.:1800] Out: - Physical Exam: General: resting comfortably in no acute distress. Neuro: Awake, alert, responds to questions appropriately, CN II-XII grossly intact, moving all four extremities spontaneously. CV: RRR. Pulm: Normal effort, no respiratory distress. Abd: Soft, non-tender, non-distended, no peritoneal signs. Incision c/d/i covered by steristrips, ileostomy site without packing in place, non- erythematous or malodorous. Skin: warm, dry, well perfused. Psych: mood and affect normal and appropriate Meds: Drips: Scheduled: lactobacillus 1 tablet Oral Daily esomeprazole 40 mg Oral Daily heparin (porcine) 5,000 Units Subcutaneous Q8H WILFRIDO methylPREDNISolone 4 mg Intravenous Daily sertraline 50 mg Oral Daily sodium chloride 0.9 % 5 mL Intravenous BID PRN: prochlorperazine 10 mg Q6H PRN Or prochlorperazine 10 mg Q6H PRN HYDROmorphone 2 mg Q4H PRN Or HYDROmorphone 4 mg Q4H PRN Or HYDROmorphone 6 mg Q4H PRN acetaminophen 1,000 mg Q6H PRN LORazepam 0.5 mg Q6H PRN Or LORazepam 0.5 mg Q6H PRN flu vacc (5 yrs+) (PF) 0.5 mL Prior to discharge sodium chloride 0.9 % 5-20 mL Q1 Min PRN lidocaine 0.3 mL Once PRN ondansetron 4 mg Q8H PRN Labs: Recent Labs 07/27/14 0430 07/26/14 0600 07/25/14 0453 WBC 6.8 6.8 9.3 HGB 10.3* 9.9* 10.4* HCT 31.2* 30.2* 32.2* PLATELET 230 214 243 Recent Labs 07/29/14 0429 07/28/14 0335 07/27/14 0430 NA 139 137 138 K 3.5 3.5 3.4* CL 100 99 98 CO2 24 23 24 BUN 8 8 8 CREATININE 0.60* 0.61* 0.58* GLUCOSE 87 89 86 Micro: c-diff pending Imaging/Studies: No new. Assessment: Aaron Zamora is a 39 y.o. female s/p elective ileostomy reversal on 07/20/14, AROBF,NGT removed 07/21, re-inserted 07/24 for vomiting and signs of obstruction, imaging 06/24 negative for obstruction, bowel function returning, advancing diet. Primary problem is persistent nausea not controlled with medications. Plan: -f/u c diff -PO dilaudid PRN -ativan PRN -mIVFs: HLIV -diet: Regular diet -BID WTD changes of ileostomy packing -methylprednisolone 4mg qday -holding other RA meds -ppx: nexium; SQH q8h Dispo: -floor status, possible d/c over the weekend -[X] follow-up w/ Lori Nino scheduled for 08/10 Code Status: Full Code Jocelyne Mejia MD PGY-1 Pager #[phone] Associated attestation - Deepthi Alexander MD - 07/29/2014 1:48 PM EST Acute Care Surgery Attending Addendum: I have seen this patient and agree with the above note with the following additions and/or modifications. Feels better today. Bowel movements much less and now more formed. Tolerated lunch without antiemetics and no nausea. Wound c/d/i without erythema. No feversor chills. Suggested she start back her methotrexate and can use medrol for RA pain. She is asking to leave and at this time there is no medical indication to keep her in the hospital. Will discharge today and follow up with me in two weeks. Jocelyne Mejia MD - 07/28/2014 11:59 AM EST ACUTE CARE SURGERY SERVICE INPATIENT PROGRESS NOTE ID: Aaron Zamora ( ) is a 39 y.o. female admitted on 07/20/2014 s/p ileostomy takedown on 07/20/14. 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 Vitals: Last value Range last 24 hrs Temperature Temp: 36.8 ??C (98.2 ??F) Temp: [36.8 ??C (98.2 ??F)-37.4 ??C (99.3 ??F)] Heart Rate Heart Rate: 68 Heart Rate: [59-74] Blood Pressure BP: 129/74 mmHg BP: (129-146)/(73-84) Respiratory Rate Resp: 16 Resp: [16] SpO2 SpO2: 98 % SpO2: [96 %-100 %] RA Intake and Output: Last 24 Current Shift Last 3 Shifts 07/27 701 - 07/28 700 In: 630 [P.O.:630] Out: - UOP not recorded overnight 07/28 701 - 07/28 1900 In: 396 [P.O.:240] Out: - 07/26 1901 - 07/28 700 In: 2346.7 [P.O.:630; I.V.:1716.7] Out: - Physical Exam: General: resting comfortably in no acute distress. Neuro: Awake, alert, responds to questions appropriately, CN II-XII grossly intact, moving all four extremities spontaneously. CV: RRR. Pulm: Normal effort, no respiratory distress. Abd: Soft, non-tender, non-distended, no peritoneal signs. Incision closed with ezekiel c/d/i, ileostomy site without packing in place, non-erythematous or malodorous. Skin: warm, dry, well perfused. Psych: mood and affect normal and appropriate Meds: Drips: Scheduled: metoclopramide 10 mg Oral 4 Times Daily AC & HS esomeprazole 40 mg Oral Daily heparin (porcine) 5,000 Units Subcutaneous Q8H WILFRIDO methylPREDNISolone 4 mg Intravenous Daily sertraline 50 mg Oral Daily sodium chloride 0.9 % 5 mL Intravenous BID PRN: HYDROmorphone 2 mg Q4H PRN Or HYDROmorphone 4 mg Q4H PRN Or HYDROmorphone 6 mg Q4H PRN acetaminophen 1,000 mg Q6H PRN LORazepam 0.5 mg Q6H PRN Or LORazepam 0.5 mg Q6H PRN flu vacc (5 yrs+) (PF) 0.5 mL Prior to discharge sodium chloride 0.9 % 5-20 mL Q1 Min PRN lidocaine 0.3 mL Once PRN ondansetron 4 mg Q8H PRN Labs: Recent Labs 07/27/14 0430 07/26/14 0600 07/25/14 0453 WBC 6.8 6.8 9.3 HGB 10.3* 9.9* 10.4* HCT 31.2* 30.2* 32.2* PLATELET 230 214 243 Recent Labs 07/28/14 0335 07/27/14 0430 07/26/14 0600 NA 137 138 142 K 3.5 3.4* 3.5 CL 99 98 102 CO2 23 24 26 BUN 8 8 12 CREATININE 0.61* 0.58* 0.56* GLUCOSE 89 86 76 Imaging/Studies: No new. Assessment: Aaron Zamora is a 39 y.o. female s/p elective ileostomy reversal on 07/20/14, AROBF,NGT removed 07/21, re-inserted 07/24 for vomiting and signs of obstruction, imaging 06/24 negative for obstruction, bowel function returning, advancing diet. Plan: -remove ezekiel today -PO dilaudid PRN -ativan PRN -mIVFs: HLIV -diet: Regular diet -BID WTD changes of ileostomy packing -methylprednisolone 4mg qday -holding other RA meds -ppx: nexium; SQH q8h Dispo: -floor status -[X] follow-up w/ Lori Nino scheduled for 08/10 Code Status: Full Code Jocelyne Mejia MD PGY-1 Pager #[phone] Associated attestation - Deepthi Alexander MD - 07/28/2014 9:16 PM EST Acute Care Surgery Attending Addendum: I have seen this patient and agree with the above note with the following additions and/or modifications. Was feeling better this morning until receiving reglan which resulted in increased abdominal cramps and loose bowel movements. Nausea better tonight and trying to take some liquids. Afebrile and non taxic appearing. Given her loose bowel movements, immunosuppression and risk for C diff will send a stool sample. Continue diet as tolerated. IPI Certification I certify that I am a D-H credentialed attending provider with admitting privileges and that the patient meets or has met medical necessity to require an inpatient IPI level of care meeting a minimum of two midnights or is on the [facility] inpatient only procedure list (status C) due to: Postop ileus Jocelyne Mejia MD - 07/27/2014 2:12 PM EST ACUTE CARE SURGERY SERVICE INPATIENT PROGRESS NOTE ID: Aaron Zamora ( ) is a 39 y.o. female admitted on 07/20/2014 s/p ileostomy takedown on 07/20/14. 24hr events: -ambulating daily -advanced to clears yesterday, tolerated well, some nausea this morning S: feeling well, continues to pass flatus and loose stool Vitals: Last value Range last 24 hrs Temperature Temp: 37.3 ??C (99.1 ??F) Temp: [36.6 ??C (97.9 ??F)-37.3 ??C (99.1 ??F)] Heart Rate Heart Rate: 59 Heart Rate: [59-81] Blood Pressure BP: 142/81 mmHg BP: (126-147)/(70-81) Respiratory Rate Resp: 16 Resp: [16-17] SpO2 SpO2: 97 % SpO2: [96 %-99 %] RA Intake and Output: Last 24 Current Shift Last 3 Shifts 07/26 07 - 07/27 0700 In: 2938.7 [I.V.:2938.7] Out: 650 [Urine:650] UOP not recorded overnight 07/25 1901 - 07/27 07 In: 4023.7 [I.V.:3993.7] Out: 1630 [Urine:1450] Physical Exam: General: resting comfortably in no acute distress. Neuro: Awake, alert, responds to questions appropriately, CN II-XII grossly intact, moving all four extremities spontaneously. CV: RRR. Pulm: Normal effort, no respiratory distress. Abd: Soft, non-tender, non-distended, no peritoneal signs. Incision closed with ezekiel c/d/i, ileostomy site without packing in place, non-erythematous or malodorous. Skin: warm, dry, well perfused. Psych: mood and affect normal and appropriate Meds: Drips: ??? HYDROmorphone ??? ONLINE MARKETING ANALYST bishop Scheduled: [START ON 07/28/2014] esomeprazole 40 mg Oral Daily heparin (porcine) 5,000 Units Subcutaneous Q8H WILFRIDO methylPREDNISolone 4 mg Intravenous Daily sertraline 50 mg Oral Daily sodium chloride 0.9 % 5 mL Intravenous BID PRN: HYDROmorphone 2 mg Q4H PRN Or HYDROmorphone 4 mg Q4H PRN Or HYDROmorphone 6 mg Q4H PRN acetaminophen 1,000 mg Q6H PRN LORazepam 0.5 mg Q6H PRN Or LORazepam 0.5 mg Q6H PRN diphenhydrAMINE 25 mg Q30 Min PRN nalOXone 0.2 mg Q1 Min PRN ONLINE MARKETING ANALYST bishop Continuous PRN prochlorperazine 10 mg Q6H PRN flu vacc (5 yrs+) (PF) 0.5 mL Prior to discharge sodium chloride 0.9 % 5-20 mL Q1 Min PRN lidocaine 0.3 mL Once PRN ondansetron 4 mg Q8H PRN Labs: Recent Labs 07/27/14 0430 07/26/14 0600 07/25/14 0453 WBC 6.8 6.8 9.3 HGB 10.3* 9.9* 10.4* HCT 31.2* 30.2* 32.2* PLATELET 230 214 243 Recent Labs 07/27/14 0430 07/26/14 0600 07/25/14 0453 NA 138 142 139 K 3.4* 3.5 4.1 CL 98 102 99 CO2 24 26 27 BUN 8 12 13 CREATININE 0.58* 0.56* 0.63* GLUCOSE 86 76 88 Imaging/Studies: No new. Assessment: Aaron Zamora is a 39 y.o. female s/p elective ileostomy reversal on 07/20/14, AROBF,NGT removed 07/21, re-inserted 07/24 for vomiting and signs of obstruction, imaging 06/24 negative for obstruction, bowel function returning, advancing diet. Plan: -Dilaudid ONLINE MARKETING ANALYST, d/c when controlled on PO meds -PO dilaudid PRN -ativan PRN -mIVFs: HLIV -diet: Regular diet -BID WTD changes of ileostomy packing -methylprednisolone 4mg qday -restart methotrexate when tolerating PO -home adalimumab injection brought from home, plan to give today -ppx: nexium; SQH q8h Dispo: -floor status -[ ] restart RA meds -[X] follow-up w/ Lori Nino scheduled for 08/10 -[X] nursing visit for staple removal schedule for 07/28 Code Status: Full Code Jocelyne Mejia MD PGY-1 Pager #[phone] Associated attestation - Deepthi Alexander MD - 07/27/2014 4:14 PM EST Acute Care Surgery Attending Addendum: I have seen this patient and agree with the above note with the following additions and/or modifications. Passing stool and flatus regularly. Pain decreased and controlled. No fevers or chills. Tolerating some clears and a little food. Intermittent nausea, no emesis. Will continue with diet as tolerated but have advised her to go slow. IPI Certification I certify that I am a D-H credentialed attending provider with admitting privileges and that the patient meets or has met medical necessity to require an inpatient IPI level of care meeting a minimum of two midnights or is on the [facility] inpatient only procedure list (status C) due to: Post-op ileus Melanie Seay RN - 07/26/2014 10:32 PM EST Assumed care of this patient at 1900. AFVSS. Is ambulating independently to the bathroom after ringing for assist with lines and getting OOB. Her pain is well controlled. + bowel sounds, had a watery BM this shift. Spirits good. Will monitor. Deepthi Malagon MD - 07/26/2014 10:18 AM EST ACUTE CARE SURGERY SERVICE INPATIENT PROGRESS NOTE ID: Aaron Zamora ( ) is a 39 y.o. female admitted on 07/20/2014 s/p ileostomy takedown on 07/20/14. 24hr events: -acute abdominal series negative for obstruction -ambulating daily -NGT put to gravity with minimal output after 4 hours, removed at 1030 S: feeling well, had a large BM and passing flatus since last night Vitals: Last value Range last 24 hrs Temperature Temp: 36.9 ??C (98.4 ??F) Temp: [36.6 ??C (97.9 ??F)-37.2 ??C (99 ??F)] Heart Rate Heart Rate: 84 Heart Rate: [70-87] Blood Pressure BP: 135/79 mmHg BP: (127-146)/(70-81) Respiratory Rate Resp: 18 Resp: [17-18] SpO2 SpO2: 98 % SpO2: [96 %-98 %] RA Intake and Output: Last 24 Current Shift Last 3 Shifts 07/25 701 - 07/26 700 In: 2584 [I.V.:2374] Out: 2480 [Urine:1200] NGT: 1300 07/26 701 - 07/26 1900 In: - Out: 250 [Urine:250] 07/24 1901 - 07/26 700 In: 3836 [I.V.:3476] Out: 3080 [Urine:1500] Physical Exam: General: resting comfortably in no acute distress. Neuro: Awake, alert, responds to questions appropriately, CN II-XII grossly intact, moving all four extremities spontaneously. HEENT: NGT in place to suction, draining green fluid CV: RRR. Pulm: Normal effort, no respiratory distress. Abd: Soft, non-tender, non-distended, no peritoneal signs. Incision closed with ezekiel c/d/i, ileostomy site without packing in place, non-erythematous or malodorous. Skin: warm, dry, well perfused. Psych: mood and affect normal and appropriate Meds: Drips: ??? lactated ringers 100 mL/hr (07/25/14 4008) ??? HYDROmorphone ??? ONLINE MARKETING ANALYST bishop Scheduled: heparin (porcine) 5,000 Units Subcutaneous Q8H WILFRIDO methylPREDNISolone 4 mg Intravenous Daily esomeprazole 40 mg Intravenous Daily sertraline 50 mg Oral Daily sodium chloride 0.9 % 5 mL Intravenous BID PRN: LORazepam 0.5 mg Q6H PRN diphenhydrAMINE 25 mg Q30 Min PRN prochlorperazine 5 mg Q30 Min PRN nalOXone 0.2 mg Q1 Min PRN ONLINE MARKETING ANALYST bishop Continuous PRN prochlorperazine 10 mg Q6H PRN flu vacc (5 yrs+) (PF) 0.5 mL Prior to discharge sodium chloride 0.9 % 5-20 mL Q1 Min PRN lidocaine 0.3 mL Once PRN ondansetron 4 mg Q8H PRN Labs: Recent Labs 07/26/14 0600 07/25/14 0453 07/24/14 0450 WBC 6.8 9.3 12.2* HGB 9.9* 10.4* 12.9 HCT 30.2* 32.2* 39.1 PLATELET 214 243 318 Recent Labs 07/26/14 0600 07/25/14 0453 07/24/14 0450 NA 142 139 140 K 3.5 4.1 3.7 CL 102 99 102 CO2 26 27 22 BUN 12 13 11 CREATININE 0.56* 0.63* 0.59* GLUCOSE 76 88 135 Imaging/Studies: Acute Abdominal Series: Chest: No acute lung disease. Abdomen: Scattered, nonspecific small bowel air-fluid levels. No distended loops of small bowel. No evidence of small bowel obstruction. Nasogastric tube tip in stomach. No free air. Paucity of bowel gas in the colon. Assessment: Aaron Zamora is a 39 y.o. female s/p elective ileostomy reversal on 07/20/14, AROBF,NGT removed 07/21, re-inserted 07/24 for vomiting and signs of obstruction, imaging 06/24 negative for obstruction, currently NGT/NPO for decompression and AROBF. Plan: -Dilaudid ONLINE MARKETING ANALYST -mIVFs: LR@100 -diet: NPO diet (Give Meds), may advance this sips this evening if doing well -BID WTD changes of ileostomy packing -methylprednisolone 4mg qday -restart methotrexate when tolerating PO -will speak with pharmacy regarding adalimumab injection -ppx: nexium; SQH q8h Dispo: -floor status -[ ] ?restart RA meds -[X] follow-up w/ Lori Nino scheduled for 08/10 -[X] nursing visit for staple removal schedule for 07/28 Code Status: Full Code Jocelyne Mejia MD PGY-1 Pager #[phone] Acute Care Surgery Attending Addendum: I have seen this patient and agree with the above note with the following additions and/or modifications. Once again moving bowels and now less nauseated. NGT clamped for several hours and feels well, removed. Will continue with just ice chips for now and consider sips later if she remains without nausea. Continue to encourage ambulation. IPI Certification I certify that I am a D-H credentialed attending provider with admitting privileges and that the patient meets or has met medical necessity to require an inpatient IPI level of care meeting a minimum of two midnights or is on the CMS inpatient only procedure list (status C) due to: Post-op Ileus Rose Mary Monte RN - 07/25/2014 10:49 PM EST I assumed care for pt from [id number]. I agree with previous nurses assessment. Pt remains in NAD, VSS, NG tube connected to cont wall suction, intermittently flushed. Pt's pain is being controlled withDilaudid ONLINE MARKETING ANALYST. Pt up with 1x assist. Dressing remains c/d/i. Pt encouraged to call with any needs. Will continue to monitor. Deepthi Malagon MD - 07/25/2014 10:56 AM EST ACUTE CARE SURGERY SERVICE INPATIENT PROGRESS NOTE ID: Aaron Zamora ( ) is a 39 y.o. female admitted on 07/20/2014 s/p ileostomy takedown on 07/20/14. 24hr events: -vomiting and NGT replaced yesterday -ambulating daily S: feeling much better with NGT in place and dilaudid ONLINE MARKETING ANALYST Vitals: Last value Range last 24 hrs Temperature Temp: 36.8 ??C (98.2 ??F) Temp: [36.8 ??C (98.2 ??F)-37.5 ??C (99.5 ??F)] Heart Rate Heart Rate: 77 Heart Rate: [74-95] Blood Pressure BP: 120/72 mmHg BP: (113-140)/(63-82) Respiratory Rate Resp: 18 Resp: [16-18] SpO2 SpO2: 97 % SpO2: [95 %-98 %] RA Intake and Output: Last 24 Current Shift Last 3 Shifts 07/24 701 - 07/25 0700 In: 2941 [P.O.:120; I.V.:2671] Out: 2200 [Urine:700] 07/25 701 - 07/25 190 In: 30 Out: - 07/23 1901 - 07/25 0700 In: 2941 [P.O.:120; I.V.:2671] Out: 2750 [Urine:700] Physical Exam: General: resting comfortably in no acute distress. Neuro: Awake, alert, responds to questions appropriately, CN II-XII grossly intact, moving all four extremities spontaneously. HEENT: NGT in place to suction, draining green fluid CV: RRR. Pulm: Normal effort, no respiratory distress. Abd: Soft, non-tender, non-distended, no peritoneal signs. Incision closed with ezekiel c/d/i, ileostomy site without packing in place, non-erythematous or malodorous. Skin: warm, dry, well perfused. Psych: mood and affect normal and appropriate Meds: Drips: ??? lactated ringers 100 mL/hr (07/25/14 0223) ??? HYDROmorphone ??? ONLINE MARKETING ANALYST bishop Scheduled: heparin (porcine) 5,000 Units Subcutaneous Q8H WILFRIDO methylPREDNISolone 4 mg Intravenous Daily esomeprazole 40 mg Intravenous Daily sertraline 50 mg Oral Daily sodium chloride 0.9 % 5 mL Intravenous BID PRN: LORazepam 0.5 mg Q6H PRN acetaminophen 1,000 mg Q6H PRN diphenhydrAMINE 25 mg Q30 Min PRN prochlorperazine 5 mg Q30 Min PRN nalOXone 0.2 mg Q1 Min PRN ONLINE MARKETING ANALYST bishop Continuous PRN prochlorperazine 10 mg Q6H PRN flu vacc (5 yrs+) (PF) 0.5 mL Prior to discharge sodium chloride 0.9 % 5-20 mL Q1 Min PRN lidocaine 0.3 mL Once PRN ondansetron 4 mg Q8H PRN Labs: Recent Labs 07/25/14 0453 07/24/14 0450 07/23/14 0441 WBC 9.3 12.2* 7.2 HGB 10.4* 12.9 9.3* HCT 32.2* 39.1 29.2* PLATELET 243 318 182 Recent Labs 07/25/14 0453 07/24/14 0450 07/23/14 0441 NA 139 140 141 K 4.1 3.7 3.7 CL 99 102 105 CO2 27 22 26 BUN 13 11 6* CREATININE 0.63* 0.59* 0.58* GLUCOSE 88 135 86 Imaging/Studies: -no new Assessment: Aaron Zamora is a 39 y.o. female s/p elective ileostomy reversal on 07/20/14, AROBF,NGT removed 07/21, re-inserted 07/24 for vomiting and signs of obstruction. Plan: -acute abd series this morning -NGT to suction -IV dilaudid PRN -mIVFs: LR@100 -diet: NPO -BID WTD changes of ileostomy packing -methylprednisolone 4mg qday -transition home meds to IV -ppx: nexium; SQH q8h Dispo: -floor status -[X] schedule follow-up with Dr. Alexander or Lori in 2 weeks -[X] schedule nursing visit for staple removal 7-10d from surgery Code Status: Full Code Jocelyne Mejia MD PGY-1 Pager #[phone] Acute Care Surgery Attending Addendum: I have seen this patient and agree with the above note with the following additions and/or modifications. Feeling better today. Pain control switched back to ONLINE MARKETING ANALYST over night with better pain control and decreased narcotic usage. NGT output decreased over night butstill not moving bowels. Ambulating some. Acute abdominal series with minimal dilation of small bowel and a paucity of gas in the colon. As she is afebrile with a normal WBC will hold off on CT scan today and continue with NGT decompression. IPI Certification I certify that I am a D-H credentialed attending provider with admitting privileges and that the patient meets or has met medical necessity to require an inpatient IPI level of care meeting a minimum of two midnights or is on the [facility] inpatient only procedure list (status C) due to: Postop ileus Lucy Madrid - 07/24/2014 2:55 PM EST Removed catheter Lucy Madrid - 07/24/2014 2:54 PM EST Patient c/o pain at piv site. Possible insertion bruise at site and small vein with 20g catheter. Lilliam Ramey RN - 07/24/2014 2:42 AM EST Patient arrived to floor via bed Flex Bed unit. Patient A&O x 4, lungs clear, heart rate regular. Patient has hypoactive bowel sounds and. Patient has a midline incision that is open to air, and a wet to dry dressing to the ileostomy site, noted to be clean dry and intact. Patient states their pain level is 6/10. Patient denies chest pain, shortness of breath, numbness or tingling. Patient does endorse nausea, Zofran 4 mg IV given. Patient oriented to room, call perry. RN will monitor patient. Deepthi Alexander MD - 07/24/2014 12:33 AM EST ACUTE CARE SURGERY SERVICE INPATIENT PROGRESS NOTE ID: Aaron Zamora ( ) is a 39 y.o. female admitted on 07/20/2014 s/p ileostomy takedown on 07/20/14. 24hr events: 1. Emesis ~2 L this AM 2. Nauseated, pain poorly controlled 3. LUE IV failed Vitals: Last value Range last 24 hrs Temperature Temp: 37.3 ??C (99.1 ??F) Temp: [36.9 ??C (98.4 ??F)-37.5 ??C (99.5 ??F)] Heart Rate Heart Rate: 94 Heart Rate: [72-94] Blood Pressure BP: 141/95 mmHg BP: (114-149)/(73-105) Respiratory Rate Resp: 18 Resp: [16-20] SpO2 SpO2: 95 % SpO2: [95 %-99 %] RA Intake and Output: Last 24 Current Shift Last 3 Shifts 07/23 07 - 07/24 0700 In: 420 [P.O.:420] Out: 525 [Urine:525] 07/22 701 - 07/23 1900 In: 3337 [P.O.:970; I.V.:2367] Out: 1975 [Urine:1975] Physical Exam: General: resting comfortably in no acute distress. Neuro: Awake, alert, responds to questions appropriately, CN II-XII grossly intact, moving all four extremities spontaneously. CV: RRR. Pulm: Normal effort, no respiratory distress. Abd: Soft, non-tender, non-distended, no peritoneal signs. Incision closed with ezekiel c/d/i, ileostomy site without packing in place, non-erythematous or malodorous. Skin: warm, dry, well perfused. Psych: mood and affect normal and appropriate Meds: Drips: Scheduled: acetaminophen 1,000 mg Oral Q6H WILFRIDO methylPREDNISolone 4 mg Oral Daily sertraline 50 mg Oral Daily sodium chloride 0.9 % 5 mL Intravenous BID heparin (porcine) 5,000 Units Subcutaneous Q12H WILFRIDO esomeprazole 40 mg Oral Daily Or esomeprazole 40 mg Intravenous Daily PRN: HYDROmorphone 0.3-0.6 mg Q2H PRN HYDROmorphone 4-8 mg Q3H PRN prochlorperazine 10 mg Q6H PRN Or prochlorperazine 10 mg Q6H PRN flu vacc (5 yrs+) (PF) 0.5 mL Prior to discharge clonazePAM 1 mg BID PRN sodium chloride 0.9 % 5-20 mL Q1 Min PRN lidocaine 0.3 mL Once PRN ondansetron 4 mg Q8H PRN Or ondansetron 4 mg Q8H PRN Labs: Recent Labs 07/23/14 0441 07/22/14 0516 07/21/14 0438 WBC 7.2 9.4 17.3* HGB 9.3* 9.8* 11.7 HCT 29.2* 29.9* 35.4 PLATELET 182 176 224 Recent Labs 07/23/14 0441 07/22/14 0516 07/21/14 0438 NA 141 139 139 K 3.7 3.5 4.3 CL 105 101 100 CO2 26 27 24 BUN 6* 9 8 CREATININE 0.58* 0.65* 0.79 GLUCOSE 86 95 134 Imaging/Studies: -no new Assessment: Aaron Zamora is a 39 y.o. female s/p elective ileostomy reversal on 07/20/14, bowel function returned, but with new emesis this AM and associated nausea Plan: -NGT -IV team for new IV -IV dilaudid PRN -mIVFs: LR@75 -diet: NPO -BID WTD changes of ileostomy packing -methylprednisolone 4mg qday -transition home meds to IV -ppx: nexium; SQH changed to Q8 from Q12 Dispo: -floor status -[X] schedule follow-up with Dr. Alexander or Lori in 2 weeks -[X] schedule nursing visit for staple removal 7-10d from surgery Code Status: Full Code LUIS GOMEZ MD 07/24/2014 Acute Care Surgery Attending Addendum: I have seen this patient and agree with the above note with the following additions and/or modifications. Reports to feeling nauseated most of yesterday and over night. Large amount of emesis this morning and NGT placed with relief. Denies any fevers or chills. Abdominal distension is better now and was causing some discomfort but improved. Bowel movements and flatus decreased. CBC hemo-concentrated and uop decreased, suspect she is intravascularly depleted so will order a one liter fluid bolus. Have encouraged ambulation. If no evidence of improvement tomorrow or fever or rising WBC will consider CT scan to assess. IPI Certification I certify that I am a D-H credentialed attending provider with admitting privileges and that the patient meets or has met medical necessity to require an inpatient IPI level of care meeting a minimum of two midnights or is on the [facility] inpatient only procedure list (status C) due to: Post-op ileus Kayla Recinos RN - 07/23/2014 11:45 PM EST Report called to Lilliam on . Patient notified of transfer, belongings With patient. Transportation called. Jocelyne Sanchez MD - 07/23/2014 9:09 AM EST ACUTE CARE SURGERY SERVICE INPATIENT PROGRESS NOTE ID: Aaron Zamora ( ) is a 39 y.o. female admitted on 07/20/2014 s/p ileostomy takedown on 07/20/14. 24hr events: -had a small BM and passing flatus -bowel sounds returning -tolerated clears Subjective: Pt denies SOB, chest pain, n/v or worsening of pain. Vitals: Last value Range last 24 hrs Temperature Temp: 36.9 ??C (98.4 ??F) Temp: [36.7 ??C (98.1 ??F)-37 ??C (98.6 ??F)] Heart Rate Heart Rate: 88 Heart Rate: [72-88] Blood Pressure BP: 114/73 mmHg BP: (102-136)/(65-90) Respiratory Rate Resp: 18 Resp: [16-18] SpO2 SpO2: 99 % SpO2: [97 %-99 %] RA Intake and Output: Last 24 Current Shift Last 3 Shifts 07/22 07 - 07/23 07 In: 2917 [P.O.:550; I.V.:2367] Out: 1450 [Urine:1450] 07/21 1901 - 07/23 0700 In: 5088 [P.O.:590; I.V.:4498] Out: 2500 [Urine:2500] Physical Exam: General: resting comfortably in no acute distress. Neuro: Awake, alert, responds to questions appropriately, CN II-XII grossly intact, moving all four extremities spontaneously. CV: RRR. Pulm: Normal effort, no respiratory distress. Abd: Soft, non-tender, non-distended, no peritoneal signs. Incision closed with ezekiel c/d/i, ileostomy site packed. Skin: warm, dry, well perfused. Meds: Drips: Scheduled: methylPREDNISolone 4 mg Oral Daily sertraline 50 mg Oral Daily sodium chloride 0.9 % 5 mL Intravenous BID heparin (porcine) 5,000 Units Subcutaneous Q12H WILFRIDO esomeprazole 40 mg Oral Daily Or esomeprazole 40 mg Intravenous Daily acetaminophen 1,000 mg Intravenous Q6H WILFRIDO PRN: HYDROmorphone 2 mg Q4H PRN Or HYDROmorphone 4 mg Q4H PRN Or HYDROmorphone 6 mg Q4H PRN flu vacc (5 yrs+) (PF) 0.5 mL Prior to discharge clonazePAM 1 mg BID PRN sodium chloride 0.9 % 5-20 mL Q1 Min PRN lidocaine 0.3 mL Once PRN ondansetron 4 mg Q8H PRN Or ondansetron 4 mg Q8H PRN Labs: Recent Labs 07/23/141 07/22/14 0516 07/21/14 0438 WBC 7.2 9.4 17.3* HGB 9.3* 9.8* 11.7 HCT 29.2* 29.9* 35.4 PLATELET 182 176 224 Recent Labs 07/23/14 0441 07/22/14 0516 07/21/14 0438 NA 141 139 139 K 3.7 3.5 4.3 CL 105 101 100 CO2 26 27 24 BUN 6* 9 8 CREATININE 0.58* 0.65* 0.79 GLUCOSE 86 95 134 Imaging/Studies: -no new Assessment: Aaron Zamora is a 39 y.o. female s/p elective ileostomy reversal on 07/20/14, doing well post-op, bowel function returning. Plan: -d/c dilaudid ONLINE MARKETING ANALYST -PO dilaudid PRN -mIVFs: HLIV -diet: Regular diet -BID WTD changes of ileostomy packing -scheduled IV tylenol and ketorolac 15mg q8h -methylprednisolone 4mg qday -restarted home meds -may shower today -ppx: nexium and SQH Dispo: -floor status -[X] schedule follow-up with Dr. Alexander or Lori in 2 weeks -[X] schedule nursing visit for staple removal 7-10d from surgery Code Status: Full Code Jocelyne Mejia MD PGY-1 Pager #[phone] 07/23/2014 Angela Zhang RN - 07/22/2014 2:37 PM EST Paged resident, pt states she is feeling dizzy and a little nauseated and the pain is changing in her abdomen. Catherine Nixon RN - 07/22/2014 1:44 PM EST Chart reviewed 39 y.o. female admitted on 07/20/2014 s/p ileostomy takedown on 07/20/14. Met with patient today- up in chair- manager life sciences for pain control Patient lives with and 3 children in [facility]- has been followed by [facility]- patient requesting Referral to [facility] for RN, ENRIQUE and homemaking Given her recent RA flares and difficulty with rx- she feels she needs more support @ home Advised that given RA dz- she should consider contacting [facility] and be assigned a machine adjuster leader case trim as heradvocate P- will contact RS with above referral and pend orders for MD signature Jocelyne Mejia MD - 07/22/2014 11:57 AM EST ACUTE CARE SURGERY SERVICE INPATIENT PROGRESS NOTE ID: Aaron Zamora ( ) is a 39 y.o. female admitted on 07/20/2014 s/p ileostomy takedown on 07/20/14. 24hr events: -doing well, no events Subjective: Pt denies SOB, chest pain, n/v or worsening of pain. No flatus. Vitals: Last value Range last 24 hrs Temperature Temp: 37 ??C (98.6 ??F) Temp: [36.6 ??C (97.9 ??F)-37.1 ??C (98.8 ??F)] Heart Rate Heart Rate: 86 Heart Rate: [68-86] Blood Pressure BP: 121/70 mmHg BP: (93-126)/(54-73) Respiratory Rate Resp: 18 Resp: [16-18] SpO2 SpO2: 96 % SpO2: [94 %-98 %] RA Intake and Output: Last 24 Current Shift Last 3 Shifts 07/21 701 - 07/22 07 In: 2291 [P.O.:160; I.V.:2131] Out: 1300 [Urine:1300] 07/22 701 - 07/22 1900 In: 1020 [P.O.:720; I.V.:300] Out: - 07/20 1901 - 07/22 07 In: 2596 [P.O.:160; I.V.:2436] Out: 2500 [Urine:2500] Physical Exam: General: resting comfortably in no acute distress. Neuro: Awake, alert, responds to questions appropriately, CN II-XII grossly intact, moving all four extremities spontaneously. CV: RRR. Pulm: Normal effort, no respiratory distress. Abd: Soft, non-tender, non-distended, no peritoneal signs. Incision closed with ezekiel c/d/i, ileostomy site packed. Skin: warm, dry, well perfused. Meds: Drips: ??? HYDROmorphone ??? ONLINE MARKETING ANALYST bishop ??? dextrose 5% and sodium chloride 0.45% 100 mL/hr (07/22/14 0648) Scheduled: ketorolac 15 mg Intravenous Q8H methylPREDNISolone 4 mg Oral Daily sertraline 50 mg Oral Daily sodium chloride 0.9 % 5 mL Intravenous BID heparin (porcine) 5,000 Units Subcutaneous Q12H WILFRIDO esomeprazole 40 mg Oral Daily Or esomeprazole 40 mg Intravenous Daily acetaminophen 1,000 mg Intravenous Q6H WILFRIDO PRN: HYDROmorphone 2 mg Q4H PRN Or HYDROmorphone 4 mg Q4H PRN Or HYDROmorphone 6 mg Q4H PRN diphenhydrAMINE 25 mg Q30 Min PRN prochlorperazine 5 mg Q30 Min PRN nalOXone 0.2 mg Q1 Min PRN ONLINE MARKETING ANALYST bishop Continuous PRN flu vacc (5 yrs+) (PF) 0.5 mL Prior to discharge clonazePAM 1 mg BID PRN sodium chloride 0.9 % 5-20 mL Q1 Min PRN lidocaine 0.3 mL Once PRN ondansetron 4 mg Q8H PRN Or ondansetron 4 mg Q8H PRN Labs: Recent Labs 07/22/14 0516 07/21/14 0438 WBC 9.4 17.3* HGB 9.8* 11.7 HCT 29.9* 35.4 PLATELET 176 224 Recent Labs 07/22/14 0516 07/21/14 0438 NA 139 139 K 3.5 4.3 CL 101 100 CO2 27 24 BUN 9 8 CREATININE 0.65* 0.79 GLUCOSE 95 134 Imaging/Studies: -no new Assessment: Aaron Zamora is a 39 y.o. female s/p elective ileostomy reversal on 07/20/14, doing well post-op, AROBF. Plan: -dilaudid ONLINE MARKETING ANALYST -PO dilaudid PRN -mIVFs: D5 1/2NS @ 75/hr -diet: NPO diet (Give Meds) -BID WTD changes of ileostomy packing -scheduled IV tylenol and ketorolac 15mg q8h -advance to clears when passing flatus -methylprednisolone 4mg qday -restarted home meds -january shower Saturday -ppx: nexium and SQH Dispo: -floor status -[ ] schedule follow-up with Dr. Alexander or Lori in 2 weeks Code Status: Full Code Jocelyne Mejia MD PGY-1 Pager #[phone] 07/22/2014 Juan Jose Mustafa RN - 07/22/2014 6:27 AM EST MD in to see---abd. Incision now CUT OFF SAW OPERATOR METAL--- Jocelyne Sanchez MD - 07/21/2014 12:55 PM EST ACUTE CARE SURGERY SERVICE INPATIENT PROGRESS NOTE ID: Aaron Zamora ( ) is a 39 y.o. female admitted on 07/20/2014 s/p ileostomy takedown on 07/20/14. 24hr events: -admitted to floor post-op, stable, doing well -200ml output from NGT since surgery, NGT removed on rounds -lim d/c'd, voided spontaneously -difficulty with pain control with morphine, changed to dilaudid ONLINE MARKETING ANALYST with significant improvement Subjective: Pt denies SOB, chest pain, abdominal pain, n/v or worsening of pain. Vitals: Last value Range last 24 hrs Temperature Temp: 37.1 ??C (98.8 ??F) Temp: [36.1 ??C (97 ??F)-37.7 ??C (99.9 ??F)] Heart Rate Heart Rate: 81 Heart Rate: [71-106] Blood Pressure BP: 103/65 mmHg BP: (103-141)/(60-87) Respiratory Rate Resp: 16 Resp: [10-16] SpO2 SpO2: 95 % SpO2: [95 %-100 %] Intake and Output: Last 24 Current Shift Last 3 Shifts 07/20 701 - 07/21 07 In: 2305 [I.V.:2305] Out: 1500 [Urine:1400] NGT: 200 07/21 701 - 07/21 1900 In: - Out: 50 [Urine:50] 07/19 1901 - 07/21 0700 In: 2305 [I.V.:2305] Out: 1500 [Urine:1400] Physical Exam: General: resting comfortably in no acute distress. Neuro: Awake, alert, responds to questions appropriately, CN II-XII grossly intact, moving all four extremities spontaneously. CV: RRR. Pulm: Normal effort, no respiratory distress. Abd: Soft, non-tender, non-distended, no peritoneal signs. Incision c/d/i, ileostomy site packed. Skin: warm, dry, well perfused. Meds: Drips: ??? HYDROmorphone ??? ONLINE MARKETING ANALYST bishop ??? dextrose 5% and sodium chloride 0.45% 100 mL/hr (07/21/14 0958) Scheduled: ketorolac 15 mg Intravenous Q8H methylPREDNISolone 4 mg Oral Daily sertraline 50 mg Oral Daily sodium chloride 0.9 % 5 mL Intravenous BID heparin (porcine) 5,000 Units Subcutaneous Q12H WILFRIDO esomeprazole 40 mg Oral Daily Or esomeprazole 40 mg Intravenous Daily acetaminophen 1,000 mg Intravenous Q6H WILFRIDO PRN: diphenhydrAMINE 25 mg Q30 Min PRN prochlorperazine 5 mg Q30 Min PRN nalOXone 0.2 mg Q1 Min PRN ONLINE MARKETING ANALYST bishop Continuous PRN clonazePAM 1 mg BID PRN sodium chloride 0.9 % 5-20 mL Q1 Min PRN lidocaine 0.3 mL Once PRN ondansetron 4 mg Q8H PRN Or ondansetron 4 mg Q8H PRN Labs: Recent Labs 07/21/14 0438 WBC 17.3* HGB 11.7 HCT 35.4 PLATELET 224 Recent Labs 07/21/14 0438 NA 139 K 4.3 CL 100 CO2 24 BUN 8 CREATININE 0.79 GLUCOSE 134 Imaging/Studies: -no new Assessment: Aaron Zamora is a 39 y.o. female s/p elective ileostomy reversal on 07/20/14, doing well post-op, AROBF. Plan: -dilaudid ONLINE MARKETING ANALYST -mIVFs: D5 1/2NS -diet: NPO diet (Give Meds) -BID WTD changes of ileostomy packing -scheduled IV tylenol and ketorolac 15mg q8h -advance to clears when passing flatus -methylprednisolone 4mg qday -restarted home meds -ppx: nexium and SQH Dispo: -floor status -[ ] schedule follow-up with Dr. Alexander Code Status: Full Code Jocelyne Mejia MD PGY-1 Pager #[phone] 07/21/2014 Associated attestation - Blas Gutierrez III, MD - 07/21/2014 1:17 PM EST Trauma/Acute Care Surgery, Attending Please see the above progress note by Dr. Mejia for complete details. His note reflects my personal examination, review of labs/imaging and discussion on rounds. The note documents an acurate reflection of our assessment; post op recovery from ileostomy reversal. Will be assuming care from Dr Alexander. IPI Certification I certify that I am a D-H credentialed attending provider with admitting privileges and that the patient meets or has met medical necessity to require an inpatient IPI level of care meeting a minimum of two midnights or is on the [facility] inpatient only procedure list (status C) due to: post-operative carethat cannot be delivered as an outpatient; examples: pain only controlled with IV pain medication; frequent or complex wound care/dressing changes; NPO requiring IV fluid support. Eliana Sosa RN - 07/21/2014 5:11 AM EST 1mg dilaudid was effective in relieving patient pain, ONLINE MARKETING ANALYST 4 hr dose limit modified. Resting in bed now, will continue to monitor. Anjel Salinas MD - 07/20/2014 11:55 PM EST Post-Operative Check: ID: Aaron Zamora is a 39 y.o. female s/p modifier, ileostomy takedown, removal of terminal ileumwith ileocolostomy. Subjective: Complaining of 10/10 abdominal pain, found crying during visit. Denies nausea/vomiting, chest pain or SOB. Last value Range last 24 hrs Temperature Temp: 37.7 ??C (99.9 ??F) Temp: [36.1 ??C (97 ??F)-37.7 ??C (99.9 ??F)] Heart Rate Heart Rate: 91 Heart Rate: [71-106] Blood Pressure BP: 122/79 mmHg BP: (121-157)/(69-100) BP (Arterial Line): -- Respiratory Rate Resp: 12 Resp: [10-18] SpO2 SpO2: 99 % SpO2: [96 %-100 %] I/O: I/O last 3 completed shifts: In: 1999 [I.V.:1999] Out: 300 [Urine:200; Blood:100] I/O this shift: In: 305 [I.V.:305] Out: 500 [Urine:500] Physical Exam: General: Appears to be in distress due to inadequate pain control, uncomfortable, conversant HEENT: NGT in place suctioning dark green bilious fluid CVS: RRR, no m/r/g Pulm: CTAB, no wheezes or rhonchi Abd: soft, appropriately tender by incision, moderately distended, incision is c/d/i. No rebounding,gaurding, or rigidity Skin: warm, dry Ext: no cyanosis, clubbing or edema. Cap refill <2sec A&P: Aaron Zamora is a 39 y.o. female s/p modifier, ileostomy takedown, removal of terminal ileum with ileocolostomy currently in stable condition. Postoperative course complicated by Increasedabdominal pain which is resolving following adjustment of pain regimen, all vital signs stable and no evidence of peritoneal signs at this time. - Continue post operative plan per primary team - Morphine ONLINE MARKETING ANALYST settings have been adjusted to 1mg/7 minute lockout interval/15mg max in 4 hours. Scheduled IV tylenol ordered q6 hours. Unresponsive to morphine 1mg/ml injection. Dilaudid Injection 1mgone time for breakthrough pain ordered, and she appears to be responsive to this. Continue home zoloft. - LR @ 125ml/hr - Continue NGT, PRN Zofran for nausea, PRN phenergan for nausea - Continue intraop Ancef and Flagyl - Nexium, SQH Eliana Heaton RN - 07/20/2014 10:00 PM EST Patient arrived from PACU, Reported pained worsening in abdomen, manager life sciences in place, however patient had reached lock out of 10mg /4 hr limit. paged, IV tylenol ordered. Patient continues to complain of pain, paged several times throughout 2200 hour and informed of this. 1 mg IV morphine ordered and given at 2330. Patient complaining of pain continuously all through 2200/2300 hour. Wire Frame Lampshade Maker in to see patient, continues to have pain, Wire Frame Lampshade Maker reports continuous pain and that has not been relieved by 1 mgmorphine. 2336- Awaiting more Breakthrough pain medication and alteration of ONLINE MARKETING ANALYST dose/MEdication. Afua Kimbrough RN - 07/20/2014 7:45 PM EST 1847 - pt to pacu via bed. Monitor and o2 attached. Monitor alarms set per pacu protocols. Report received and care resumed. Pt arouses to verbal. kezia Hooks. Neuro intact. C/o pain in abd 910 - moansooow frequently. Iv meds begun. gd sats on mask and lungs clear but decreased. Encouraged pt to take deep breaths. Vss. ivf infusing via left hand piv. Skin intact. Afebrile. abd dressing cdi. No drains. bilat venodynes on. Pt npo. Left nare NGT to CLWS - irrigated with 30 cc sterile water and air bolus confirmed. Blue port flushed with air as well. ngt draining small brown bilious driange. Pt c/o nausea - iv meds begun. Lim with gd amounts pale yellow urine. 2 bags belongings at bedside. manager life sciences hung and pt using well. 1999 - redosed with ancef [address] Alexander at bedside to update pt. Pt resting soundly with stable vss however will moan out and state pain 7/10. Also c/o occassional nausea. Pt seems anxious at times. 2029 - pt pain level 6/10 - tolerates this at home. Pt states ok to tolerate this level. Vss. Turnedpt - back intact - joi turn well. Dressing with moist drainage at lower portion. Mouth care done. 2044 - report called to MICHELLE Fleming and pt readied for transfer to [facility] via bed with o2. documented in this encounter H&P Notes Deepthi Alexander MD - 07/20/2014 2:13 PM EST Patient Name: Aaron Zamora Patient Age: 39 y.o. Birthdate: 1975 Admit date: 07/20/2014 Attending Physician: Deepthi Alexander MD Presents today after being seen last week in clinic. Denies any chest pain, shortness of breath, fevers or chills. Has stopped taking her medrol for a couple of days. Last dose of Humira was ten days ago. Clear liquids last night and ileostomy output thin. No changes since exam last week, heart is regular and lungs are clear bilateral. Plan for OR today for ileostomy reversal. documented in this encounter Miscellaneous Notes Discharge Summary - Jocelyne Mejia MD - 07/29/2014 1:45 PM EST ACUTE CARE SURGERY SERVICE INPATIENT DISCHARGE SUMMARY Patient Name: Aaron Zamora Patient Age: 39 y.o. : 1975 Attending Physician: Deepthi Alexander MD Date of Admission: 07/20/2014 Date of Discharge: 07/29/2014 Primary Diagnosis: 1. Ileostomy takedown 2. Post-operative ileus Secondary Diagnosis: 1. Rheumatoid arthritis Operations/Major Procedures: Operations: 07/20/2014 Surgeon(s) and Role: * Deepthi Alexander MD - Primary * Carrol Kumar MD - Resident-Surgeon Chief: Procedure(s): MODIFIER , ILEOSTOMY TAKEDOWN @COLECTOMY, PARTIAL, WITH REMOVAL TERMINAL ILEUM, WITH ILEOCOLOSTOMY HPI: Source: Dr. [facility] Note Ms. Zamora presents to clinic today to discuss reversal of her ileostomoy. She underwent a right hemicolectomy in January of this year for pneumatosis And given the amount of immunosuppression she was on at the time an end ileostomy was created. Since surgery her abdominal pain has improved and her RA hasbeen doing well, and she has nearly weaned off of her Medrol. She has been eating well and is payingclose attention to her liquids for fear of becoming dehydrated. The ileostomy output has been a little loose lately leading to some skin irritation, however she feels she is able to manage this at thistime. Denies any fevers, chills, nausea, emesis, chest pain or shortness of breath. She has had an active summer and her energy has been good. 38 year old woman recovering well nearly four months after surgery. Her RA has been well controlled and she is weaning from her Medrol. We discussed the plan for surgery which would be through her previous incision and would involve connecting her small intestine back with her colon. The risk of anastomotic leak, abdominal infection and hernia were all discussed, and I mentioned that given her obesity and immunosuppression her risk of hernia was higher. I explained that despite her you age that a pre-op colonoscopy is important to rule out any tumor or obstruction prior to surgery and this has beenscheduled. We will need to hold some of her medications around the time of surgery to help reduce her risk of infection and to allow for wound healing. I will discuss this with her Oncologist. Hospital Course: Aaron Zamora was admitted to the Acute Care Surgery Service on 07/20/2014 for ileostomy takedown. On 07/20/14 she was taken to the operating room where the above procedures were performed. She tolerated the operation well and there were no apparent complications. She was admitted post-operatively for observation and management. Her post-operative course was complicated by slow return of bowel function requiring reinsertion of an NG tube on 07/24. She began passing flatus and stool on 07/25, however had difficultly tolerating PO until day before discharge. For her RA she was given methylprednisolone throughout her stay but methotrexate and humira were held. Aaron Zamora was tolerating regular diet, ambulating and voiding without difficulty, afebrile with stable vital signs, and her pain was well controlled on oral pain medications when she was deemed ready for discharge on 07/29/2014. Shefelt that she was ready to return home and was please with this plan. VNA was ordered. Follow-up appo intment to see Dr. Alexander the first week of August were made. Updated Allergies/ADRs: Allergies Allergen Reactions ??? Sulfa (Sulfonamide Antibiotics) Anaphylaxis ??? Tape, Permeable Adhesive Pending Lab Data at Discharge: No current labs Condition at Discharge: Stable Important Studies and Lab Data: Labs: Recent Labs 07/27/14 0430 WBC 6.8 HGB 10.3* HCT 31.2* PLATELET 230 Recent Labs 07/29/14 0429 07/28/14 0335 07/27/14 0430 NA 139 137 138 K 3.5 3.5 3.4* CL 100 99 98 CO2 24 23 24 BUN 8 8 8 CREATININE 0.60* 0.61* 0.58* GLUCOSE 87 89 86 CALCIUM 9.2 8.9 9.2 Studies: XR Abd post-op 07/20/14: Findings NG tube projects over left upper quadrant. An additional small metallic density projects above the NG tube and may represent a portion of the NG tube. This is above the top clips and therefore not within the surgical field. Remainder of the abdomen appears normal. Impression No evidence of retained surgical object. XR Abd 07/24/14: Findings A feeding tube extends below the level of the diaphragm and current across midline at the level of the gastric body. Surgical clips are present in the right upper quadrant. XR acute abd series 07/25/14: Chest: No acute lung disease. Abdomen: Scattered, nonspecific small bowel air-fluid levels. No distended loops of small bowel. No evidence of small bowel obstruction. Nasogastric tube tip in stomach. No free air. Paucity of bowel gas in the colon. Discharge Examination: Last value Range last 12 hrs Temperature Temp: 36.8 ??C (98.2 ??F) Temp: [36.8 ??C (98.2 ??F)-37.1 ??C (98.8 ??F)] Heart Rate Heart Rate: 74 Heart Rate: [70-74] Blood Pressure BP: 113/66 mmHg BP: (113-135)/(66-78) Respiratory Rate Resp: 16 Resp: [16-18] SpO2 SpO2: 97 % SpO2: [97 %] I/Os: I/O last 3 completed shifts: In: 6 [P.O.:1800; IV Piggyback:156] Out: - Physical Exam: General: resting comfortably in no acute distress. Neuro: Awake, alert, responds to questions appropriately, CN II-XII grossly intact, moving all four extremities spontaneously. CV: RRR. Pulm: Normal effort, no respiratory distress. Abd: Soft, non-tender, non-distended, no peritoneal signs. Incision c/d/i covered by steristrips, stables removed, ileostomy site packed. Skin: warm, dry, well perfused. Discharge to: Home Discharge Medications: The following medications have been prescribed for you. If you notice any adverse reactions to your medications, please contact your primary care physician immediately or go to the nearest Emergency Department. Your Medications New Medications Dose Details HYDROmorphone 2 mg Tab Commonly known as: DILAUDID Take 1-2 tablets by mouth every 4 hours as needed for Pain (for mild pain). 2-4 mg Quantity: 90 tablet Refills: 0 ondansetron 4 mg Tab Commonly known as: ZOFRAN ( HYDROCHLORIDE) Take 1 tablet by mouth every 8 hours as needed for Nausea. 4 mg Quantity: 20 tablet Refills: 0 Continued medications, unchanged Dose Details acetaminophen 500 mg Tab Commonly known as: TYLENOL Take 1,000 mg by mouth every 6 hours as needed for Pain. 1000 mg Refills: 0 clonazePAM 1 mg Tab Commonly known as: KlonoPIN Take 1 mg by mouth 2 times daily as needed for Anxiety. 1 mg Refills: 0 folic acid 1 mg Tab Commonly known as: FOLVITE Take 1 tablet by mouth daily. 1 mg Quantity: 90 tablet Refills: 3 methotrexate 2.5 mg Tab Take 8 tablets by mouth once a week. 20 mg Quantity: 96 tablet Refills: 3 methylPREDNISolone 4 mg Tab Commonly known as: MEDROL 24 mg daily x 7 days, then decrease by 4 mg every 7 days Quantity: 180 tablet Refills: 2 MULTI-VIRAL ORAL Take by mouth daily. Refills: 0 sertraline 50 mg Tab Commonly known as: ZOLOFT Take 50 mg by mouth daily. 50 mg Refills: 0 traMADol 50 mg Tab Commonly known as: ULTRAM Take 1-2 tablets by mouth every 6 hours as needed for Pain. 50-100 mg Quantity: 240 tablet Refills: 3 STOPPED Medications Adalimumab 40 mg/0.8 mL Pnkt Commonly known as: HUMIRA PEN Ostomy Adhesive Pste Ostomy Supplies 12 Misc Ostomy Supplies Powd Ostomy Supplies Strp Ostomy Supplies Swab Follow-up Care & Plans: For questions, orders or appointments related to your continuing care after your discharge, you or your provider should contact the physician that managed that part of your care. General Surgery: PCP: ADRIÁN BAUTISTA MD, . Please follow-up with your PCP as needed. Issues to be followed-up with your PCP: 1. Rheumatoid arthritis Scheduled Appointments: To be scheduled. Outpatient Services/Studies: Referral to Home Health - at DISCHARGE Order Comments: DOCUMENTATION FOR VNA SERVICES (INCLUDING THOSE PATIENTS WITH MEDICARE COVERAGE REQUIRING HOME VNA SERVICES AND/OR HOSPICE SERVICES) PATIENT'S LOCATION: [facility] [address] [address] (home) Cell: No relevant phone numbers on file. Technology Education Instructor's Name: self In discussion with the attending physician, it is certified that this patient is under their care and that they, or a Nurse Practitioner,Clinical Nurse specialist or Physician Hide Shaker who is working directly with them, had a face to face encounter that meets the physician face to face encounter requirements with this patient on 07/22/2014 The encounter with the patient was in whole, or in part, for the following medical condition, which is the primary reason for home health care services: post operative monitoring In discussion with the provider, it is certified that, based on their findings, the following services are medically necessary for home health services. To provide the following care/treatments with the clinical findings supporting the need for servicesas follows: HOME CARE ORDERS: RN ORDERS:Assess incision, vital signs, cardiopulmonary status, nutrition, hydration, elimination, meds effectiveness and management; reinforce education re health issues- assess for homemaking services SENIOR TALENT MANAGEMENT CONSULTANT: assist with personal care- light meal prep HOME HEALTH CARE AGENCY: [facility]. PHONE: [phone] FAX: [phone] Start of care: 24 hrs after discharge Please note that any additional orders needs or changes will need to be obtained from this patient'sPCP: ADRIÁN BAUTISTA MD [phone] [facility] / [facility] [id number] All VNA agencies which cover the area of patient's residence have been reviewed, either verbally or in writing, and patient/family have chosen the home health care agency noted Question Response Notes Agency name and contact information [facility] Patient location post discharge home What services are requested Registered Nurse What services are requested Home Health Aide Responsible MD post discharge contact info PCP Instructions Given to Patient at Discharge: Patient Instructions Discharge Instructions CALL YOUR PHYSICIAN IF: ??? You have a fever greater than 101 degrees Farenheit within one month of your surgery. ? ? You have diarrhea or vomiting for >24 hours, or stop having bowel movements and passing flatus ??? You have worsening pain, not controlled with your pain medication. ??? You develop redness, swelling, or new drainage from your wound. Prescriptions: You have been prescribed narcotic pain medications (Dilaudid) to control your discomfort after surgery. ? DO NOT use alcohol, drive, or operate heavy or complex machinery while taking these medications. ? Narcotic pain medications may cause constipation. ? Stool softeners, such as Colace; mild laxatives, such as Milk of Magnesia, Sennakot, or Ducolax tabs; or enemas may be used if needed and are zjdt-fvc-[id number] (OTC) medications available at most local pharmacies. Prunes or prune juice, taken daily, can also be helpful for constipation treatment or pr evention and are available at most supermarkets. Driving Restrictions: - No driving if you are too sore from surgery to enter or exit your vehicle comfortably, or if you are too sore to easily check your blind spot. No driving while using prescription pain medications Activities: ? Discuss return to work or school with your surgeon. ? No heavy lifting. You may lift what is comfortable to lift with one arm. Nothing greater than 15 pounds until re-evaluated by your physician. Diet: ? Eat a well-balanced diet. Fresh fruits, vegetables and fiber-containing foods are recommended. This will assist in wound healing. Recommendations: ? Take it easy for two weeks. Remember, If it hurts, don't do it. ? Take several slow, short walks each day for the first two weeks, and gradually increase your distance. We recommend at least 4 times a day. Wound Care: ? You can shower per usual routine and wash the incision area gently. Pat incision dry with a clean,dry towel. ? Do not submerge the wound under water (avoid spas, pools and bathtubs) until it is fully healed. ? Do not use creams, oils, or ointments on the wound. ? Keep the wound open to air if it is not draining. Comfort: ? Some incision soreness can be expected. ? Take your pain medication as needed and prescribed. ? Taper use of pain medication as pain lessens. Follow-up Appointments: A Follow-up appointment will be scheduled with Dr. Alexander in the [facility] the first week in August. You will recieve a letter in the mail and/or a phone call with information about this appointment. Please call [phone] (clinic number for appointments) to confirm date and time of your appointment, or if you do not receive information about your appointment in a timely manner. Your surgeon may not be Mechanical Technician, especially during the night or on weekends, so be ready to describe yourself and your surgery when you call. CC: Primary Care Physician: ADRIÁN BAUTISTA MD General Instructions None Call your doctor if: Please call your doctor immediately or go to an Emergency Department if you notice worsening pain not controlled by pain medications, uncontrolled headache, vision changes, chest pain, difficulty breathing, persistent nausea and vomiting, new redness or swelling in any extremities, new onset weakness or changes in sensation, or for any fevers greater than 101.3 F. Signed: JOCELYNE MEJIA MD 07/29/2014 Plan of Care - Padmini Valdez RN - 07/29/2014 3:55 AM EST Problem: General Plan of Care Goal: Plan of Care Review 07/29/14 0349 Plan of Care Review Plan of Care Outcome Status ongoing (interventions implemented as appropriate) Progress improving Coping/Psychosocial Response Interventions Plan of Care Reviewed with patient OUTCOME EVALUATION NOTE: OUTCOME SUMMARY: Pain well controlled this evening, one episode of nausea resolved with PO compazine, stool sample sent to lab for C. Diff testing. PLAN MOVING FORWARD: Pending outcome of C. Diff test, preparing for discharge soon? INDIVIDUALIZED FALL PREVENTION: Assistance: independent Supervision: when out of room Surveillance: Robert, hourly rounding CPG OUTCOME EVALUATION: Goal: Fall Prevention-Safe Patient Handling 07/28/142027 Safety Interventions Safety Precautions/Fall Reduction environmental modification;fall reduction program maintained;lighting adjusted for task/safety;nonskid shoes/slippers when out of bed Musculoskeletal Interventions Activity/Level of Assistance up in room;independently Positioning independent Ying Fall Risk History of Falling 0 Secondary Diagnosis 15 Ambulatory Aids 0 Intravenous Therapy/Heparin/Saline Lock 20 Gait/Transferring 0 Mental Status 0 Score 35 OTHER Ying Fall Risk Medium (25-44) Goal: Discharge Needs Assessment 07/29/14348 Discharge Needs Assessment Concerns to be Addressed no discharge needs identified Readmission Within the Last 30 Days no previous admission in last 30 days Equipment Needed After Discharge none Living Environment Transportation Available family or friend will provide Self-Care Equipment Currently Used at Home none Current Health Anticipated Changes Related to Illness none Problem: Pain, Acute (Adult, Obstetrics) Goal: Identify Signs and Symptoms and Related Risk Factors Signs and symptoms and related risk factors are identified upon initiation of Human Response Clinical Practice Guideline (CPG) 07/29/149 Pain, Acute Related Risk Factors (Acute Pain) anxiety Signs and Symptoms (Acute Pain) verbalization of pain descriptors Goal: Acceptable Pain Control/Comfort Level Patient will demonstrate the desired outcomes. 07/29/14348 Pain, Acute (Adult, Obstetrics) Acceptable Pain Control/Comfort Level achieves outcome Plan of Care - Lilliam Barfield RN - 07/28/2014 1:25 PM EST Problem: General Plan of Care Goal: Plan of Care Review Outcome: Ongoing (Interventions Implemented as Appropriate) 07/28/14 1318 Plan of Care Review Plan of Care Outcome Status ongoing (interventions implemented as appropriate) Progress improving Coping/Psychosocial Response Interventions Plan of Care Reviewed with patient OUTCOME EVALUATION NOTE: OUTCOME SUMMARY: ONLINE MARKETING ANALYST discontinued this morning. Pt tolerating oral pain medication as needed. First dose of reglan given, see MAR. Pt having increased diarrhea. Reglan discontinued. Pt ambulating independently in room.Pt continues to have nausea. Antinausea medication given when available. Wet to dry dressing change to abdomen done this morning. PLAN MOVING FORWARD: Pain control; nausea control INDIVIDUALIZED FALL PREVENTION: Assistance: independent Supervision: no assistance with ADLs Surveillance: Greggo, hourly rounding CPG GOAL OUTCOME EVALUATION: Goal: Individualization and Mutuality 07/28/14 1318 Individualization Patient Specific Goals pain control; nausea control Goal: Fall Prevention-Safe Patient Handling 07/28/14 0912 Safety Interventions Safety Precautions/Fall Reduction assistive device;fall reduction program maintained;environmental modification;nonskid shoes/slippers when out of bed Goal: Discharge Needs Assessment 07/28/14 131 Discharge Needs Assessment Equipment Needed After Discharge none Self-Care Equipment Currently Used at Home none Problem: Pain, Acute (Adult, Obstetrics) Goal: Acceptable Pain Control/Comfort Level Patient will demonstrate the desired outcomes. 07/28/14 1318 Pain, Acute (Adult, Obstetrics) Acceptable Pain Control/Comfort Level making progress toward outcome Plan of Care - Padmini Valdez RN - 07/28/2014 4:48 AM EST Problem: General Plan of Care Goal: Plan of Care Review 07/28/14 0440 Plan of Care Review Plan of Care Outcome Status ongoing (interventions implemented as appropriate) Progress improving Coping/Psychosocial Response Interventions Plan of Care Reviewed with patient OUTCOME EVALUATION NOTE: OUTCOME SUMMARY: Trying to move away from ONLINE MARKETING ANALYST towards PO pain control complicated by nausea when swallowing pills. Patient preferring to use ONLINE MARKETING ANALYST at this time despite reminding of above plan to transition. PLAN MOVING FORWARD: Discuss ways to help pt take pills (ex. Crushed in applesauce) to help with moving away from ONLINE MARKETING ANALYST INDIVIDUALIZED FALL PREVENTION: Assistance: Standby assist Supervision: with toileting, walking long distances Surveillance: Robert, hourly rounding CPG OUTCOME EVALUATION: Goal: Fall Prevention-Safe Patient Handling 07/26/14 1300 07/27/14 2134 07/28/14 0440 Safety Interventions Safety Precautions/Fall Reduction -- assistive device;environmental modification;fall reduction program maintained;lighting adjusted for task/safety -- Musculoskeletal Interventions Activity/Level of Assistance -- up in room;independently -- Positioning -- independent -- Muscle Strengthening -- -- activity/mobility promoted Self-Care Promotion -- -- adaptive equipment provided Ying Fall Risk History of Falling -- 0 -- Secondary Diagnosis -- 15 -- Ambulatory Aids -- 0 -- Intravenous Therapy/Heparin/Saline Lock -- 20 -- Gait/Transferring -- 10 -- Mental Status -- 0 -- Score -- 45 -- Activity and Safety Assistive Device (none) -- -- OTHER Ying Fall Risk -- High (45 and higher) -- Goal: Discharge Needs Assessment 07/28/14 0440 Discharge Needs Assessment Concerns to be Addressed no discharge needs identified Readmission Within the Last 30 Days no previous admission in last 30 days Equipment Needed After Discharge none Living Environment Transportation Available family or friend will provide Self-Care Equipment Currently Used at Home none Current Health Anticipated Changes Related to Illness none Problem: Pain, Acute (Adult, Obstetrics) Goal: Identify Signs and Symptoms and Related Risk Factors Signs and symptoms and related risk factors are identified upon initiation of Human Response Clinical Practice Guideline (CPG) 07/28/140 Pain, Acute Related Risk Factors (Acute Pain) anxiety;initially high pain levels Signs and Symptoms (Acute Pain) constipation/diarrhea;verbalization of pain descriptors Goal: Acceptable Pain Control/Comfort Level Patient will demonstrate the desired outcomes. 07/28/14 0440 Pain, Acute (Adult, Obstetrics) Acceptable Pain Control/Comfort Level making progress toward outcome Plan of Care - Damaris Bender RN - 07/27/2014 6:45 PM EST Problem: General Plan of Care Goal: Plan of Care Review 07/27/141837 Plan of Care Review Plan of Care Outcome Status ongoing (interventions implemented as appropriate) Progress improving Coping/Psychosocial Response Interventions Plan of Care Reviewed with patient OUTCOME EVALUATION NOTE: OUTCOME SUMMARY: PT taking oral PRN pain medications (see MAR) and trying to use less of ONLINE MARKETING ANALYST. Intermittent nausea throughout day and dry heaving. Medications given to help with nausea (see MAR). Pt tolerating regular diet fairly well. Eating slowly and light foods helps to avoid nausea. PLAN MOVING FORWARD: Pain control, nausea control, ambulation INDIVIDUALIZED FALL PREVENTION: Assistance: Independent Supervision: Independent Surveillance: Hourly aramingrobert CPG GOAL OUTCOME EVALUATION: Goal: Individualization and Mutuality 11/18/14 1838 Individualization Individualize the Plan of Care: Maintain pain and nausea control using PRN meds Patient Specific Goals Pain control, tolerate regular diet, no N/V Mutuality/Individual Preferences What anxieties, fears or concerns do you have about your health or care? Pain, N/V Goal: Fall Prevention-Safe Patient Handling 07/27/14 0800 Musculoskeletal Interventions Activity/Level of Assistance up ad lisa;up in room Positioning independent Muscle Strengthening activity/mobility promoted Self-Care Promotion independence encouraged while providing assistance Goal: Discharge Needs Assessment 07/27/141837 Discharge Needs Assessment Concerns to be Addressed no discharge needs identified Equipment Needed After Discharge none Living Environment Transportation Available family or friend will provide Self-Care Equipment Currently Used at Home none Problem: Pain, Acute (Adult, Obstetrics) Intervention: Pain Management Interventions 07/27/14 0800 Pain/Comfort Interventions Pain Management Interventions multimodal measures utilized Plan of Care - Josué Eng RN - 07/27/2014 1:30 AM EST Problem: General Plan of Care Goal: Plan of Care Review Outcome: Ongoing (Interventions Implemented as Appropriate) 07/25/14 1417 07/26/14 1300 Plan of Care Review Plan of Care Outcome Status ongoing (interventions implemented as appropriate) -- Progress improving -- Coping/Psychosocial Response Interventions Plan of Care Reviewed with -- patient Goal: Individualization and Mutuality Outcome: Ongoing (Interventions Implemented as Appropriate) 07/25/14 0400 07/25/14 1417 07/26/14 1820 Individualization Individualize the Plan of Care: -- Maintaine adequate pain control and maintain nausea relief. -- Patient Specific Preferences -- Like to be apart of care decisions. -- Patient Specific Goals -- -- Pain control, tolerate clear liquid diet, ambulate Patient Specific Interventions -- NGT flushed frequently for nausea relief, clumbs gather in tubing.-- Mutuality/Individual Preferences What anxieties, fears or concerns do you have about your health or care? -- -- Inadequate pain control What questions do you have about your health or care? Patient wants to know if her concerns will be listened to by staff. -- -- What information would help us give you more personalized care? -- Patient has chronic pain. Anxietyr/t prior care providers to listening to patient needs. -- Goal: Fall Prevention-Safe Patient Handling Outcome: Ongoing (Interventions Implemented as Appropriate) 07/25/14 0833 07/26/14 1300 07/26/14 2145 Safety Interventions Safety Precautions/Fall Reduction -- assistive device;low bed;fall reduction program maintained;nonskid shoes/slippers when out of bed -- Musculoskeletal Interventions Activity/Level of Assistance -- up ad lisa;up in de leon -- Positioning -- -- independent Muscle Strengthening -- activity/mobility promoted -- Self-Care Promotion independence encouraged while providing assistance -- -- Ying Fall Risk History of Falling -- 0 -- Secondary Diagnosis -- 15 -- Ambulatory Aids -- 15 -- Intravenous Therapy/Heparin/Saline Lock -- 20 -- Gait/Transferring -- 10 -- Mental Status -- 0 -- Score -- 60 -- Activity and Safety Assistive Device -- (none) -- OTHER Ying Fall Risk -- High (45 and higher) -- Goal: Discharge Needs Assessment Outcome: Ongoing (Interventions Implemented as Appropriate) 07/23/14 1012 07/26/14 1820 Discharge Needs Assessment Concerns to be Addressed -- no discharge needs identified Concerns Comments home health through [facility] and working on -- Readmission Within the Last 30 Days -- no previous admission in last 30 days Equipment Needed After Discharge -- none Living Environment Transportation Available -- family or friend will provide Problem: Pain, Acute (Adult, Obstetrics) Goal: Identify Signs and Symptoms and Related Risk Factors Signs and symptoms and related risk factors are identified upon initiation of Human Response Clinical Practice Guideline (CPG) Outcome: Ongoing (Interventions Implemented as Appropriate) 07/25/14 1417 07/26/14 1820 Pain, Acute Related Risk Factors (Acute Pain) anxiety;initially high pain levels;surgery -- Signs and Symptoms (Acute Pain) -- constipation/diarrhea;verbalization of pain descriptors Goal: Acceptable Pain Control/Comfort Level Patient will demonstrate the desired outcomes. Outcome: Ongoing (Interventions Implemented as Appropriate) 07/26/14 1820 Pain, Acute (Adult, Obstetrics) Acceptable Pain Control/Comfort Level making progress toward outcome Comments: OUTCOME EVALUATION NOTE: OUTCOME SUMMARY: Pt. Stable, no signs of nausea or vomiting, pt. oob with minimal assistance to void. No change in condition noted this shift PLAN MOVING FORWARD: INDIVIDUALIZED FALL PREVENTION: Assistance: Supervision: Surveillance: Masimo and rounding CPG GOAL OUTCOME EVALUATION: Plan of Care - Damaris Bender RN - 07/26/2014 6:28 PM EST Problem: General Plan of Care Goal: Plan of Care Review OUTCOME EVALUATION NOTE: OUTCOME SUMMARY: Pt ambulated around unit today independently. NG tube was removed. Tolerating well with no N/V. Pt ate popsicle and jello, tolerated both well. Diet advanced to clear liquids. Had several BM's this afternoon. Pain controled well with ONLINE MARKETING ANALYST. Wet to dry dressing change done at ileostomy site this am. PLAN MOVING FORWARD: Pain control, see how pt tolerated advanced diet to clear liquids, ambulate INDIVIDUALIZED FALL PREVENTION: Assistance: Independent Supervision: Independent Surveillance: Hourly rounding, robert CPG GOAL OUTCOME EVALUATION: Goal: Individualization and Mutuality 07/26/141819 Individualization Patient Specific Goals Pain control, tolerate clear liquid diet, ambulate Mutuality/Individual Preferences What anxieties, fears or concerns do you have about your health or care? Inadequate pain control Goal: Fall Prevention-Safe Patient Handling 07/26/14 1300 Safety Interventions Safety Precautions/Fall Reduction assistive device;low bed;fall reduction program maintained;nonskidshoes/slippers when out of bed Musculoskeletal Interventions Activity/Level of Assistance up ad lisa;up in de leon Positioning up in chair;independent Muscle Strengthening activity/mobility promoted Goal: Discharge Needs Assessment 07/26/14 182 Discharge Needs Assessment Concerns to be Addressed no discharge needs identified Readmission Within the Last 30 Days no previous admission in last 30 days Equipment Needed After Discharge none Living Environment Transportation Available family or friend will provide Problem: Pain, Acute (Adult, Obstetrics) Intervention: Pain Management Interventions 07/26/14 1300 Pain/Comfort Interventions Pain Management Interventions multimodal measures utilized Goal: Identify Signs and Symptoms and Related Risk Factors Signs and symptoms and related risk factors are identified upon initiation of Human Response Clinical Practice Guideline (CPG) 07/26/14 1820 Pain, Acute Signs and Symptoms (Acute Pain) constipation/diarrhea;verbalization of pain descriptors Goal: Acceptable Pain Control/Comfort Level Patient will demonstrate the desired outcomes. 07/26/14 1820 Pain, Acute (Adult, Obstetrics) Acceptable Pain Control/Comfort Level making progress toward outcome Plan of Care - Josué Eng RN - 07/26/2014 1:59 AM EST Problem: General Plan of Care Goal: Plan of Care Review Outcome: Ongoing (Interventions Implemented as Appropriate) 07/25/14 1417 Plan of Care Review Plan of Care Outcome Status ongoing (interventions implemented as appropriate) Progress improving Coping/Psychosocial Response Interventions Plan of Care Reviewed with patient OUTCOME EVALUATION NOTE: Patient on masimo and rounding. No changes or problems noted this shift PLAN MOVING FORWARD: No changes noted this shift continue towards discharge INDIVIDUALIZED FALL PREVENTION: Assistance: Supervision: Surveillance: CPG GOAL OUTCOME EVALUATION: Goal: Individualization and Mutuality Outcome: Ongoing (Interventions Implemented as Appropriate) 07/25/14 0400 07/25/14 1417 Individualization Individualize the Plan of Care: -- Maintaine adequate pain control and maintain nausea relief. Patient Specific Preferences -- Like to be apart of care decisions. Patient Specific Goals -- Pain control, nausea control, mobilize, Xray, dsg changes BID. Patient Specific Interventions -- NGT flushed frequently for nausea relief, clumbs gather in tubing. Mutuality/Individual Preferences What anxieties, fears or concerns do you have about your health or care? -- Inadequate pain control,not being listened to by care providers. What questions do you have about your health or care? Patient wants to know if her concerns will be listened to by staff. -- What information would help us give you more personalized care? -- Patient has chronic pain. Anxietyr/t prior care providers to listening to patient needs. Goal: Fall Prevention-Safe Patient Handling Outcome: Ongoing (Interventions Implemented as Appropriate) 07/25/14 0833 07/25/14 1000 07/25/14 1835 Safety Interventions Safety Precautions/Fall Reduction assistive device;commode/urinal/bedpan at bedside;fall reduction program maintained;environmental modification;lighting adjusted for task/safety;low bed;room near unitstation;nonskid shoes/slippers when out of bed -- -- Musculoskeletal Interventions Activity/Level of Assistance -- -- up in room;ambulated;with stand by assist Positioning independent -- -- Muscle Strengthening activity/mobility promoted;up in chair encouraged for meals and activities -- -- Self-Care Promotion independence encouraged while providing assistance -- -- Ying Fall Risk History of Falling 0 -- -- Secondary Diagnosis 15 -- -- Ambulatory Aids 15 -- -- Intravenous Therapy/Heparin/Saline Lock 20 -- -- Gait/Transferring 0 -- -- Mental Status 0 -- -- Score 50 -- -- Activity and Safety Assistive Device -- Front wheel walker -- OTHER Ying Fall Risk High (45 and higher) -- -- Goal: Discharge Needs Assessment Outcome: Ongoing (Interventions Implemented as Appropriate) 07/23/14 1012 07/25/141416 Discharge Needs Assessment Concerns to be Addressed -- no discharge needs identified Concerns Comments home health through [facility] and working on -- Readmission Within the Last 30 Days -- no previous admission in last 30 days Equipment Needed After Discharge none;other (see comments) (poise pads, bed pads ) -- Living Environment Transportation Available -- family or friend will provide Problem: Pain, Acute (Adult, Obstetrics) Goal: Identify Signs and Symptoms and Related Risk Factors Signs and symptoms and related risk factors are identified upon initiation of Human Response Clinical Practice Guideline (CPG) Outcome: Ongoing (Interventions Implemented as Appropriate) 07/25/141416 Pain, Acute Related Risk Factors (Acute Pain) anxiety;initially high pain levels;surgery Signs and Symptoms (Acute Pain) constipation/diarrhea;facial mask of pain/grimace;fatigue/weakness;guarding/abnormal posturing/positioning;nausea/vomiting/anorexia;verbalization of pain descriptors Goal: Acceptable Pain Control/Comfort Level Patient will demonstrate the desired outcomes. Outcome: Ongoing (Interventions Implemented as Appropriate) 07/25/141416 Pain, Acute (Adult, Obstetrics) Acceptable Pain Control/Comfort Level making progress toward outcome Plan of Care - Laxmi Sheldon RN - 07/25/2014 2:28 PM EST Problem: General Plan of Care Goal: Plan of Care Review 07/25/141416 Plan of Care Review Plan of Care Outcome Status ongoing (interventions implemented as appropriate) Progress improving Coping/Psychosocial Response Interventions Plan of Care Reviewed with patient OUTCOME EVALUATION NOTE: OUTCOME SUMMARY: Patient progressing towards d/c goals appropriately. Patient had NGT replaced yesterday and has put out moderate amounts of green drainage. Patient tried for BM with no outcome, passing flatus. Nausea improved from previous days per patient. Patient states pain is well managed with ONLINE MARKETING ANALYST, anxious about how long providers with let her keep it for pain control. Family visited with patient for couple of hours this afternoon, which put patient in better spirits. Will continue to monitor and help patient reach d/c goals. PLAN MOVING FORWARD: Plan to continue with nausea management keeping pt NPO, and monitoring output from NGT. Improve patient anxiety but allowing time with patient and listening to patient needs. Frequently monitor and assess pain level to ensure adequate pain control. Mobilize as tolerated. INDIVIDUALIZED FALL PREVENTION: Assistance: Patient is mobilizing with standby assist. Supervision: Patient requires minimal assistance with ADL's. Surveillance: Patient monitored with purposeful rounding and teresa. CPG GOAL OUTCOME EVALUATION: Goal: Individualization and Mutuality 07/25/14 1417 Individualization Individualize the Plan of Care: Maintaine adequate pain control and maintain nausea relief. Patient Specific Preferences Like to be apart of care decisions. Patient Specific Goals Pain control, nausea control, mobilize, Xray, dsg changes BID. Patient Specific Interventions NGT flushed frequently for nausea relief, clumbs gather in tubing. Mutuality/Individual Preferences What anxieties, fears or concerns do you have about your health or care? Inadequate pain control, not being listened to by care providers. What information would help us give you more personalized care? Patient has chronic pain. Anxiety r/t prior care providers to listening to patient needs. Goal: Fall Prevention-Safe Patient Handling 07/25/14 0833 07/25/14 1000 07/25/14 1258 Safety Interventions Safety Precautions/Fall Reduction assistive device;commode/urinal/bedpan at bedside;fall reduction program maintained;environmental modification;lighting adjusted for task/safety;low bed;room near unitstation;nonskid shoes/slippers when out of bed -- -- Musculoskeletal Interventions Activity/Level of Assistance -- -- up in room;ambulated;with stand by assist Positioning independent -- -- Muscle Strengthening activity/mobility promoted;up in chair encouraged for meals and activities -- -- Self-Care Promotion independence encouraged while providing assistance -- -- Ying Fall Risk History of Falling 0 -- -- Secondary Diagnosis 15 -- -- Ambulatory Aids 15 -- -- Intravenous Therapy/Heparin/Saline Lock 20 -- -- Gait/Transferring 0 -- -- Mental Status 0 -- -- Score 50 -- -- Activity and Safety Assistive Device -- Front wheel walker -- OTHER Ying Fall Risk High (45 and higher) -- -- Goal: Discharge Needs Assessment 07/25/14 1417 Discharge Needs Assessment Concerns to be Addressed no discharge needs identified Readmission Within the Last 30 Days no previous admission in last 30 days Living Environment Transportation Available family or friend will provide Problem: Pain, Acute (Adult, Obstetrics) Goal: Identify Signs and Symptoms and Related Risk Factors Signs and symptoms and related risk factors are identified upon initiation of Human Response Clinical Practice Guideline (CPG) 07/25/14 1417 Pain, Acute Related Risk Factors (Acute Pain) anxiety;initially high pain levels;surgery Signs and Symptoms (Acute Pain) constipation/diarrhea;facial mask of pain/grimace;fatigue/weakness;guarding/abnormal posturing/positioning;nausea/vomiting/anorexia;verbalization of pain descriptors Goal: Acceptable Pain Control/Comfort Level Patient will demonstrate the desired outcomes. 07/25/14 1417 Pain, Acute (Adult, Obstetrics) Acceptable Pain Control/Comfort Level making progress toward outcome Plan of Care - Lilliam Ramey RN - 07/25/2014 4:21 AM EST Problem: General Plan of Care Goal: Plan of Care Review 07/25/14 0400 Plan of Care Review Plan of Care Outcome Status ongoing (interventions implemented as appropriate) Progress improving Coping/Psychosocial Response Interventions Plan of Care Reviewed with patient OUTCOME EVALUATION NOTE: OUTCOME SUMMARY: At start of shift patient pain was poorly controlled. Patient was able to receive 0.6mg dilaudid IV for pain every two hours, but this was only effective for about an hour at a time before wearing off.MD was contacted and pain control strategies were discussed. Patient was started on a Dilaudid ONLINE MARKETING ANALYST at 0.2-10-4. Overall patient's pain is well controlled, decreasing from 7-8/10 to 3/10. Patient has actually used less pain medication with the ONLINE MARKETING ANALYST, and has not approached her 4 hour limit at any time. Patient also has and NG tube to wall suction in place. NGT has required flushing several times due to thickness of secretions to maintain patency. Patient has had some anxiety and intermittent nausea forwhich she has received lorazepam IV with good effect. PLAN MOVING FORWARD: Continue to monitor pain, and when patient is able to tolerate orals, transition off ONLINE MARKETING ANALYST to PO medication. Continue to monitor NGT for patency. INDIVIDUALIZED FALL PREVENTION: Assistance: Patient is standby assist as she requires help with IV pole and NGT. Supervision: Assisting with medical equipment when patient mobilizes. Surveillance: Robert, Purposeful Hourly Rounding CPG GOAL OUTCOME EVALUATION: Goal: Individualization and Mutuality 07/25/14 0400 Individualization Individualize the Plan of Care: Maintain adequate pain control, monitor and treat s/s of nausea Patient Specific Goals pain control and treatment for nausea and anxiety as needed Patient Specific Interventions Patient started on ONLINE MARKETING ANALYST for better pain management Mutuality/Individual Preferences What anxieties, fears or concerns do you have about your health or care? That pain will not adequately be controlled, and that she won't be listened to/believed about her pain. What questions do you have about your health or care? Patient wants to know if her concerns will be listened to by staff. What information would help us give you more personalized care? Patient has been in a lot of pain, and has tried to be patint with the process, but this has been difficult Goal: Fall Prevention-Safe Patient Handling 07/22/14 0130 07/22/14 1654 07/24/14 0100 Safety Interventions Safety Precautions/Fall Reduction -- -- -- Musculoskeletal Interventions Activity/Level of Assistance -- -- -- Positioning -- -- -- Muscle Strengthening -- activity/mobility promoted;mobility in bed promoted -- Self-Care Promotion meal setup provided -- -- Ying Fall Risk History of Falling -- -- -- Secondary Diagnosis -- -- -- Ambulatory Aids -- -- -- Intravenous Therapy/Heparin/Saline Lock -- -- -- Gait/Transferring -- -- -- Mental Status -- -- -- Score -- -- -- Activity and Safety Assistive Device -- -- Standard walker OTHER Ying Fall Risk -- -- -- 07/24/14 4708 Safety Interventions Safety Precautions/Fall Reduction environmental modification;fall reduction program maintained;lighting adjusted for task/safety;nonskid shoes/slippers when out of bed Musculoskeletal Interventions Activity/Level of Assistance up ad lisa;up in room;ambulated;with stand by assist Positioning up in chair Muscle Strengthening -- Self-Care Promotion -- Ying Fall Risk History of Falling 0 Secondary Diagnosis 15 Ambulatory Aids 15 Intravenous Therapy/Heparin/Saline Lock 20 Gait/Transferring 0 Mental Status 0 Score 50 Activity and Safety Assistive Device -- OTHER Ying Fall Risk High (45 and higher) Goal: Discharge Needs Assessment 07/25/14 0400 Discharge Needs Assessment Concerns to be Addressed care coordination/care conferences Readmission Within the Last 30 Days no previous admission in last 30 days Living Environment Transportation Available family or friend will provide;car Problem: Pain, Acute (Adult, Obstetrics) Goal: Acceptable Pain Control/Comfort Level Patient will demonstrate the desired outcomes. Outcome: Ongoing (Interventions Implemented as Appropriate) 07/25/14 0400 Pain, Acute (Adult, Obstetrics) Acceptable Pain Control/Comfort Level making progress toward outcome Plan of Care - Arpan Lugo RN - 07/24/2014 7:52 PM EST Problem: Nausea/Vomiting in Preg, Includes Hyperemesis (Adult, Obstetrics) Goal: Signs and symptoms of listed potential problems will be absent or manageable (reference (Nausea/Vomiting in Preg, Includes Hyperemesis (Adult, Obstetrics)) CPG) Outcome: Ongoing (Interventions Implemented as Appropriate) Had a projectile vomiting todat for 2.5 liter of greenish emesis which promoted NG placement by MD at 1240 PM. Had 900 cc returned right away with relief. NGT on cont suction with occasional requiring flush. Received one liter of IV bolus/ K runs. UO 400 cc all day dark justin urine. IV at 100 cc started. Plan of Care - Arpan Lugo RN - 07/24/2014 7:46 PM EST Problem: Pain, Acute (Adult, Obstetrics) Goal: Acceptable Pain Control/Comfort Level Patient will demonstrate the desired outcomes. Outcome: Ongoing (Interventions Implemented as Appropriate) 07/24/141944 Pain, Acute (Adult, Obstetrics) Acceptable Pain Control/Comfort Level making progress toward outcome Pain med given q 2 IV dilaudid. Added Acetaminophen IV this evening per MD. Plan of Care - Arpan Lugo RN - 07/24/2014 7:45 PM EST Problem: Activity Intolerance (Adult, Obstetrics) Goal: Activity Tolerance Patient will demonstrate the desired outcomes. Outcome: Outcome (s) achieved Date Met: 07/24/14 07/24/141943 Activity Intolerance (Adult, Obstetrics) Activity Tolerance achieves outcome Steady with one stand by assist. No dizziness. Tolerating well with activities. Plan of Care - Arpan Lugo RN - 07/24/2014 7:44 PM EST Problem: Skin Integrity Impairment, Risk/Actual (Adult, Obstetrics) Goal: Identify Signs and Symptoms and Related Risk Factors Signs and symptoms and related risk factors are identified upon initiation of Human Response Clinical Practice Guideline (CPG) Outcome: Ongoing (Interventions Implemented as Appropriate) VSS afebrile. Patient is being closely monitored. Plan of Care - Arpan Lugo RN - 07/24/2014 7:42 PM EST Problem: Skin Integrity Impairment, Risk/Actual (Adult, Obstetrics) Goal: Skin Integrity/Wound Healing Patient will demonstrate the desired outcomes. Outcome: Ongoing (Interventions Implemented as Appropriate) 07/24/141940 Skin Integrity Impairment, Risk/Actual (Adult, Obstetrics) Skin Integrity/Wound Healing making progress toward outcome Abd incision open to air with ezekiel. Intact S/p ileo site ar right side healing wound pink. Wet to dry dressing done. Plan of Care - Delmis Monet RN - 07/23/2014 10:33 AM EST Problem: General Plan of Care Goal: Plan of Care Review 07/23/14 101 Plan of Care Review Plan of Care Outcome Status ongoing (interventions implemented as appropriate) Progress improving Coping/Psychosocial Response Interventions Plan of Care Reviewed with patient Garden Labourer assumed care of pt at 0700. A&OX3. VSS on RA. Pt controlled per MAR. Pt OOB to chair for most of morning. Pt up to bathroom with standby assist. Pt calm and cooperative in care. Plan of carereviewed with pt. Pt now on regular diet and tolerating well. PO fluids encouraged. Pt able to make needs known, call light within reach. Please see MAR and interactive view for additional information. Goal: Individualization and Mutuality 07/21/14 1200 07/23/14 101 Individualization Patient Specific Goals -- pain control Mutuality/Individual Preferences What anxieties, fears or concerns do you have about your health or care? getting sicker -- Goal: Fall Prevention-Safe Patient Handling 07/23/14 1012 Safety Interventions Safety Precautions/Fall Reduction commode/urinal/bedpan at bedside Goal: Discharge Needs Assessment Outcome: Ongoing (Interventions Implemented as Appropriate) 07/22/14 0129 07/23/14 101 Discharge Needs Assessment Concerns to be Addressed -- adjustment to diagnosis/illness concerns Concerns Comments -- home health through [facility] and working on Readmission Within the Last 30 Days no previous admission in last 30 days -- Equipment Needed After Discharge -- none;other (see comments) (poise pads, bed pads ) Problem: Pain, Acute (Adult, Obstetrics) Goal: Acceptable Pain Control/Comfort Level Patient will demonstrate the desired outcomes. Outcome: Ongoing (Interventions Implemented as Appropriate) 07/23/14 101 Pain, Acute (Adult, Obstetrics) Acceptable Pain Control/Comfort Level making progress toward outcome Problem: Activity Intolerance (Adult, Obstetrics) Goal: Activity Tolerance Patient will demonstrate the desired outcomes. Outcome: Ongoing (Interventions Implemented as Appropriate) 07/23/14 101 Activity Intolerance (Adult, Obstetrics) Activity Tolerance making progress toward outcome Goal: Effective Energy Conservation Techniques Patient will demonstrate the desired outcomes. Outcome: Ongoing (Interventions Implemented as Appropriate) 07/23/14 1012 Activity Intolerance (Adult, Obstetrics) Effective Energy Conservation Techniques making progress toward outcome Plan of Care - Eliana Sosa RN - 07/23/2014 6:43 AM EST Problem: General Plan of Care Goal: Plan of Care Review 07/23/14 0642 Plan of Care Review Plan of Care Outcome Status ongoing (interventions implemented as appropriate) Progress progress toward functional goals is gradual Coping/Psychosocial Response Interventions Plan of Care Reviewed with patient Plan of Care - Angela Zhang RN - 07/22/2014 5:05 PM EST Problem: General Plan of Care Goal: Plan of Care Review Outcome: Ongoing (Interventions Implemented as Appropriate) 07/22/14 1654 Plan of Care Review Plan of Care Outcome Status ongoing (interventions implemented as appropriate) Progress improving Coping/Psychosocial Response Interventions Plan of Care Reviewed with patient Pt OOB today ambulating. Had 2 BMs one formed one liquid. Had period of dizziness/discomfort prior to second BM, relief after. Now tolerating small amts of clear PO. Pain otherwise tolerable on currentregimen. Goal: Individualization and Mutuality 07/21/14 1200 Mutuality/Individual Preferences What anxieties, fears or concerns do you have about your health or care? getting sicker Goal: Fall Prevention-Safe Patient Handling Outcome: Ongoing (Interventions Implemented as Appropriate) 07/21/14 1300 07/22/14 0130 07/22/14 0800 Safety Interventions Safety Precautions/Fall Reduction -- -- environmental modification;fall reduction program maintained;low bed;lighting adjusted for task/safety Musculoskeletal Interventions Activity/Level of Assistance -- -- -- Positioning -- -- -- Muscle Strengthening -- -- -- Self-Care Promotion -- meal setup provided -- Ying Fall Risk History of Falling -- -- 0 Secondary Diagnosis -- -- 15 Ambulatory Aids -- -- 0 Intravenous Therapy/Heparin/Saline Lock -- -- 20 Gait/Transferring -- -- 0 Mental Status -- -- 0 Score -- -- 35 Activity and Safety Assistive Device Front wheel walker -- -- OTHER Ying Fall Risk -- -- Medium (25-44) 07/22/14 1500 07/22/141653 Safety Interventions Safety Precautions/Fall Reduction -- -- Musculoskeletal Interventions Activity/Level of Assistance up ad lisa;bed rest -- Positioning HOB up 30-45 degrees;supine -- Muscle Strengthening -- activity/mobility promoted;mobility in bed promoted Self-Care Promotion -- -- Ying Fall Risk History of Falling -- -- Secondary Diagnosis -- -- Ambulatory Aids -- -- Intravenous Therapy/Heparin/Saline Lock -- -- Gait/Transferring -- -- Mental Status -- -- Score -- -- Activity and Safety Assistive Device -- -- OTHER Ying Fall Risk -- -- Goal: Discharge Needs Assessment Outcome: Ongoing (Interventions Implemented as Appropriate) Problem: Pain, Acute (Adult, Obstetrics) Goal: Identify Signs and Symptoms and Related Risk Factors Signs and symptoms and related risk factors are identified upon initiation of Human Response Clinical Practice Guideline (CPG) Outcome: Outcome (s) achieved Date Met: 07/22/14 07/22/141653 Pain, Acute Related Risk Factors (Acute Pain) comorbidities;inadequate control (episodic versus continuous management);surgery Signs and Symptoms (Acute Pain) constipation/diarrhea;fatigue/weakness;fear of reinjury;guarding/abnormal posturing/positioning Goal: Acceptable Pain Control/Comfort Level Patient will demonstrate the desired outcomes. Outcome: Ongoing (Interventions Implemented as Appropriate) Problem: Activity Intolerance (Adult, Obstetrics) Goal: Identify Signs and Symptoms and Related Risk Factors Signs and symptoms and related risk factors are identified upon initiation of Human Response Clinical Practice Guideline (CPG) Outcome: Outcome (s) achieved Date Met: 07/22/14 07/22/141653 Activity Intolerance Personal Related Risk Factors (Activity Intolerance) general weakness Physiological Related Risk Factors (Activity Intolerance) pain Treatment Related Related Risk Factors (Activity Intolerance) medication side effects;surgical treatment Signs and Symptoms (Activity Intolerance) pain/discomfort Goal: Activity Tolerance Patient will demonstrate the desired outcomes. Outcome: Ongoing (Interventions Implemented as Appropriate) 07/22/141653 Activity Intolerance (Adult, Obstetrics) Activity Tolerance making progress toward outcome Goal: Effective Energy Conservation Techniques Patient will demonstrate the desired outcomes. Outcome: Ongoing (Interventions Implemented as Appropriate) 07/22/141653 Activity Intolerance (Adult, Obstetrics) Effective Energy Conservation Techniques making progress toward outcome Plan of Care - Juan Jose Vidal RN - 07/22/2014 1:32 AM EST Problem: General Plan of Care Goal: Plan of Care Review Outcome: Ongoing (Interventions Implemented as Appropriate) 07/22/14 0132 Plan of Care Review Plan of Care Outcome Status ongoing (interventions implemented as appropriate) Progress improving Coping/Psychosocial Response Interventions Plan of Care Reviewed with patient Plan of Natalio - Juan Jose Vidal RN - 07/22/2014 1:32 AM EST Problem: General Plan of Care Goal: Fall Prevention-Safe Patient Handling Outcome: Ongoing (Interventions Implemented as Appropriate) 07/22/14 0130 Safety Interventions Safety Precautions/Fall Reduction environmental modification;lighting adjusted for task/safety;room near unit station Musculoskeletal Interventions Activity/Level of Assistance with stand by assist Positioning independent Self-Care Promotion meal setup provided Plan of Natalio - Juan Jose Vidal RN - 07/22/2014 1:30 AM EST Problem: General Plan of Care Goal: Discharge Needs Assessment Outcome: Ongoing (Interventions Implemented as Appropriate) 07/22/14 0129 Discharge Needs Assessment Concerns to be Addressed no discharge needs identified Readmission Within the Last 30 Days no previous admission in last 30 days Plan of Natalio - Juan Jose Vidal RN - 07/22/2014 1:29 AM EST Problem: Pain, Acute (Adult, Obstetrics) Goal: Identify Signs and Symptoms and Related Risk Factors Signs and symptoms and related risk factors are identified upon initiation of Human Response Clinical Practice Guideline (CPG) Outcome: Ongoing (Interventions Implemented as Appropriate) 07/22/14 0128 Pain, Acute Related Risk Factors (Acute Pain) anxiety Signs and Symptoms (Acute Pain) moaning Plan of Natalio - Juan Jose Vidal RN - 07/22/2014 1:28 AM EST Problem: Pain, Acute (Adult, Obstetrics) Goal: Acceptable Pain Control/Comfort Level Patient will demonstrate the desired outcomes. Outcome: Ongoing (Interventions Implemented as Appropriate) 07/22/14 0127 Pain, Acute (Adult, Obstetrics) Acceptable Pain Control/Comfort Level making progress toward outcome Plan of Care - Delmis Monet RN - 07/21/2014 1:22 PM EST Problem: General Plan of Care Goal: Fall Prevention-Safe Patient Handling Outcome: Ongoing (Interventions Implemented as Appropriate) 07/21/14 1320 Safety Interventions Safety Precautions/Fall Reduction nonskid shoes/slippers when out of bed;room near unit station Musculoskeletal Interventions Activity/Level of Assistance up in room;with 1-person assist Goal: Discharge Needs Assessment Outcome: Ongoing (Interventions Implemented as Appropriate) Problem: Pain, Acute (Adult, Obstetrics) Goal: Identify Signs and Symptoms and Related Risk Factors Signs and symptoms and related risk factors are identified upon initiation of Human Response Clinical Practice Guideline (CPG) Outcome: Ongoing (Interventions Implemented as Appropriate) Goal: Acceptable Pain Control/Comfort Level Patient will demonstrate the desired outcomes. Outcome: Ongoing (Interventions Implemented as Appropriate) Comments: Garden Labourer assumed care of pt at 0700. A&OX3. VSS on RA. Pt calm and cooperative in care. Plan of care reviewed with pt. Plan for pain control reviewed with pt and pt receiving good pain relief with ONLINE MARKETING ANALYST. NG tube removed in AM by team. Pt tolerating ice chips and hard candy per diet order. Lim removed in am and voiding and PVRs documented in interactive view. Pt able to make needs known, call light within reach. Please see MAR and interactive view for additional information. Op Note - Deepthi Alexander MD - 07/21/2014 11:33 AM EST [facility] Operative Note Patient Name: Aaron Zamora : [id number] MR#: [id number] Case Date: 07/20/2014 Surgeon: Surgeon(s) and Role: * Deepthi Alexander MD - Primary * Carrol Kumar MD - Resident-Surgeon Chief Preoperative diagnosis: ILEOSTOMY Postoperative diagnosis: ILEOSTOMY Procedure(s): MODIFIER , ILEOSTOMY TAKEDOWN REMOVAL TERMINAL ILEUM, WITH ILEOCOLOSTOMY Anesthesia: General Findings: Terminal ileum resected after taking down the ileostomy. Stapled side to side ileocolonic anastomosis performed and mesentery closed. Complications: none Fluids: 2800 mls Estimated Blood Loss: 100 mls UOP: 200 mls Drains: none Disposition: awakened from anesthesia, extubated and taken to the recovery room in a stable condition, having suffered no apparent untoward event. Condition: doing well without problems Specimens removed during surgery: terminal ileum Surgical Closure: midline wound with all layers closed; RLQ wound with fascia closed, skin left partially open and packed. 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 Presents this admission for take down of ileostomy. Procedure Description: After informed consent was confirmed the patient was brought back to the operating room and placed supine on the OR table. Anesthesia administered general anesthetic and intubated the patient with an ETT. Additional support lines and a lim were placed. Her stoma appliance was r emoved and stoma oversewn with silk to prevent contamination during the surgery. Pre-operative antibiotics were given. Her abdomen was prepped and draped in the usual sterile fashion. A time-out was performed. Our attention was then turned to the patient's abdomen where a midline incision was made over her previous scar, extending slightly inferior to ensure entrance into unscarred abdomen. Subcutaneous tissues and midline fascia were divided with cautery. We then entered her peritoneum sharply. We noted relatively dense adhesions of omentum to the midline scar. Adhesiolysis was performed with a combination of sharp dissection and electrocautery. Her abdomen was explored. Additional interloop adhesions were noted and lysed with sharp dissection, taking great care to avoid enterotomy. A Bookwalter retractor was placed to improve exposure. Once all adhesions were taken down, we identified the end ileostomy and the stapled transverse colon. Next, we isolated the end ileostomy just below the fascia. We turned our attention to taking this down. To do so, an elliptical incision was made on the patient's RLQto include the stoma. Electrocautery was used to dissect the end ileostomy free from subcutaneous tis sues. The ileostomy was then reduced into the abdomen. The distal 5cm was stapled with an endo AMANDA (blue load) and sent to pathology. At this time we ran the entire small bowel from the ligament of Treitz to the TI and ensured the mesentary was well aligned. We then turned our attention to creating our anastomosis. To do this we aligned the stapled off transverse colon and the TI in a [id number] fashion. A 75 blue load endo AMANDA was used to create the ileocolonic anastomosis and the common enterotomy was then closed in a two layer fashion: first, with an imbricating stitch using 3-0 PDS, then withLemberts using 3-0 silk. This was done without incident and no tension. The anastomosis was widely patent. The mesenteric defect was closed with running 3-0 vicryl. Next, our attention was turned to the patient's RLQ, at her prior stoma site. We repaired the fascial defect primarily from within the abdomen, reapproximating the fascia and peritoneum with a running PDS suture fashion. Once we were satis fied with this repair we inspected the abdomen one last time. The abdomen was irrigated and hemostasis was ensured. The midiline fascia was then closed primarily with running #1 PDS. The wound was irrigated with antibiotic solution and the skin overlying this incision was then closed with ezekiel. Next, we turned to the subcutaneous defect in the RLQ over the prior stoma. The underlying fascial/muscle layers were closed with figure of eight PDS. Then, the skin and superficial subcutaneous tissues were irrigated with Bacitracin solution, the skin edges on both sides of the previous ileostomy site was closed with ezekiel and the middle portion of the wound was packed with a damp to dry dressing. Midline wound was closed with ezekiel. All counts were reported to be correct at the end of the case. Post-operative xray confirmed no retained objects. The patient was awoken, extubated and taken to PACU in stable condition. Dr. Alexander waspresent and scrubbed for the entire case. [facility] - Eliana Sosa RN - 07/20/2014 10:14 PM EST Problem: General Plan of Care Goal: Plan of Care Review Outcome: Ongoing (Interventions Implemented as Appropriate) 07/20/142 Plan of Care Review Plan of Care Outcome Status ongoing (interventions implemented as appropriate) Progress no change Coping/Psychosocial Response Interventions Plan of Care Reviewed with patient Attempting to maintain patient comfort as she recovers from Ileostomy reversal surgery. ONLINE MARKETING ANALYST in placeand patient aware of how to use and is doing so appropriately. Brief Op Note - Deepthi Alexander MD - 07/20/2014 6:50 PM EST Brief Operative Note Patient Name: Aaron Zamora : [id number] MR#: [id number] Case Date: 07/20/2014 Surgeon: Surgeon(s) and Role: * Deepthi Alexander MD - Primary * Carrol Kumar MD - Resident-Surgeon Chief Preoperative diagnosis: ILEOSTOMY Postoperative diagnosis: ILEOSTOMY Procedure(s): MODIFIER , ILEOSTOMY TAKEDOWN REMOVAL TERMINAL ILEUM, WITH ILEOCOLOSTOMY Anesthesia: General Findings: Terminal ileum resected after taking down the ileostomy. Stapled side to side ileocolonic anastomosis performed and mesentery closed. Complications: none Fluids: 2800 mls Estimated Blood Loss: 100 mls UOP: 200 mls Drains: none Disposition: awakened from anesthesia, extubated and taken to the recovery room in a stable condition, having suffered no apparent untoward event. Condition: doing well without problems (Please see the Surgical Encounter Summary for any Implant and Specimen details pertinent to this patient.) documented in this encounter Plan of Treatment Not on filedocumented as of this encounter Procedures Procedure Name Priority Date/Time Associated Comments Diagnosis BASIC METABOLIC PANEL Routine 07/29/2014 4:29 AM Results for this (NON-FASTING) EST procedure are in the results section. C. DIFFICILE SCREEN Routine 07/28/2014 11:55 Resu lts for this PM EST procedure are i n the results section. BASIC METABOLIC PANEL Routine 07/28/2014 3:35 AM Results for this (NON-FASTING) EST procedure are in the results section. HEMOGRAM Routine 07/27/2014 4:30 AM Results f or this EST procedure are i n the results section. DIFFERENTIAL, Routine 07/27/2014 4:30 AM Results for this AUTOMATED EST procedure are i n the results section. CBC (WITH DIFF) Routine 07/27/2014 4:30 AM EST BASIC METABOLIC PANEL Routine 07/27/2014 4:30 AM Results for this (NON-FASTING) EST procedure are in the results section. HEMOGRAM Routine 07/26/2014 6:00 AM Results f or this EST procedure are i n the results section. DIFFERENTIAL, Routine 07/26/2014 6:00 AM Results for this AUTOMATED EST procedure are i n the results section. CBC (WITH DIFF) Routine 07/26/2014 6:00 AM EST BASIC METABOLIC PANEL Routine 07/26/2014 6:00 AM Results for this (NON-FASTING) EST procedure are in the results section. XR ABDOMEN ACUTE Routine 07/25/2014 11:28 Results for this SERIES W PA CHEST AM EST procedure are in the results section. HEMOGRAM Routine 07/25/2014 4:53 AM Results f or this EST procedure are i n the results section. DIFFERENTIAL, Routine 07/25/2014 4:53 AM Results for this AUTOMATED EST procedure are i n the results section. CBC (WITH DIFF) Routine 07/25/2014 4:53 AM EST BASIC METABOLIC PANEL Routine 07/25/2014 4:53 AM Results for this (NON-FASTING) EST procedure are in the results section. XR ABDOMEN 1 VIEW Routine 07/24/2014 5:51 PM Resu lts for this EST procedure are i n the results section. HEMOGRAM Routine 07/24/2014 4:50 AM Results f or this EST procedure are i n the results section. DIFFERENTIAL, Routine 07/24/2014 4:50 AM Results for this AUTOMATED EST procedure are i n the results section. CBC (WITH DIFF) Routine 07/24/2014 4:50 AM EST BASIC METABOLIC PANEL Routine 07/24/2014 4:50 AM Results for this (NON-FASTING) EST procedure are in the results section. HEMOGRAM Routine 07/23/2014 4:41 AM Results f or this EST procedure are i n the results section. DIFFERENTIAL, Routine 07/23/2014 4:41 AM Results for this AUTOMATED EST procedure are i n the results section. CBC (WITH DIFF) Routine 07/23/2014 4:41 AM EST BASIC METABOLIC PANEL Routine 07/23/2014 4:41 AM Results for this (NON-FASTING) EST procedure are in the results section. HEMOGRAM Routine 07/22/2014 5:16 AM Results f or this EST procedure are i n the results section. DIFFERENTIAL, Routine 07/22/2014 5:16 AM Results for this AUTOMATED EST procedure are i n the results section. CBC (WITH DIFF) Routine 07/22/2014 5:16 AM EST BASIC METABOLIC PANEL Routine 07/22/2014 5:16 AM Results for this (NON-FASTING) EST procedure are in the results section. HEMOGRAM Routine 07/21/2014 4:38 AM Results f or this EST procedure are i n the results section. DIFFERENTIAL, Routine 07/21/2014 4:38 AM Results for this AUTOMATED EST procedure are i n the results section. CBC (WITH DIFF) Routine 07/21/2014 4:38 AM EST BASIC METABOLIC PANEL Routine 07/21/2014 4:38 AM Results for this (NON-FASTING) EST procedure are in the results section. XR ABDOMEN 1 VIEW Routine 07/20/2014 6:29 PM Resu lts for this EST procedure are i n the results section. SURGICAL PATHOLOGY Routine 07/20/2014 5:11 PM Res ults for this REPORT EST procedure are i n the results section. SPECIMEN TO PATHOLOGY Routine 07/20/2014 5:11 PM Results for this EST procedure are i n the results section. @COLECTOMY, PARTIAL, 07/20/2014 3:36 PM ILEOSTOMY WITH REMOVAL TERMINAL EST ILEUM, WITH ILEOCOLOSTOMY (WRVU 20.89) MODIFIER , ILEOSTOMY 07/20/2014 3:36 PM ILEOSTOMY TAKEDOWN EST documented in this encounter Results (ABNORMAL) Basic Metabolic Panel (non-fasting) (07/29/2014 4:29 AM EST) athologist Signature Glucose Lvl 87 60 - 199 CERNER mg/dL MILLENNIUM Comment: Diabetes: >=200 mg/dL plus symp toms BUN 8 8 - 18 mg/dL CERNER MILLENNIUM Creatinine 0.60 (L) 0.70 - 1.20 mg/dL CERNER MILL ENNIUM Comment: Please note that the pediatric reference intervals supplied above were not validated at [facility]. Results from pediatri c patients should be interpreted in conjunction to the patient's age, height and muscle mass. Sodium 139 135 - 145 mmol/L CERNER ARIS NIUM Potassium 3.5 3.5 - 5.0 mmol/L CERNER ARIS NIUM Comment: Please note: ??Patients with WBC >100,00 0 may have falsely elevated Potassium levels. ??For accurate Potassium quantif ication in these patients send serum separator tube (gold top) for subsequent determinations. ??Contact the Clinical Chemistry Laboratory if there are any qu estions. Chloride 100 98 - 107 mmol/L CERNER MILLENN IUM CO2 24 22 - 31 mmol/L CERNER MILLENNI UM Anion Gap 15 5 - 15 mmol/L CERNER MILLENNIU M Calcium 9.2 8.5 - 10.5 mg/dL CERNER ARIS NIUM Estimated GFR >60 >=60 CERNER MILLENNIU M Comment: This estimated GFR (eGFR) value was [...] the following links into your internet browser. [email or web address] [email or web address] Specimen Anatomical Collection Method Collection Time Receive d Time (Source) Location / / Volume Laterality Blood specimen 07/29/2014 4:29 AM 014 5:11 (specimen) EST AM EST Resulting Agency Comment Spec In Lab Deepthi Alexander MD CHEMISTRY ORDERABLES Performing Organization Address City/State/ZIP Code Phon e Number [place] [phone] CERNER MILLENNIUM C. Difficile Screen (07/28/2014 11:55 PM EST) Analysis Performed At Patho logist Time Signature C Diff Screen Negative Negative CERNER MILLENNIUM Specimen Anatomical Collection Method Collection Time Receive d Time (Source) Location / / Volume Laterality Stool specimen 07/28/2014 11:55 11/20/201 4 7:21 (specimen) PM EST AM EST Resulting Agency Comment Spec In Lab Deepthi Alexander MD MICROBIOLOGY - GENERAL ORDER ANGELES Performing Organization Address City/State/[place] [address] CERNER MILLENNIUM (ABNORMAL) Basic Metabolic Panel (non-fasting) (07/28/2014 3:35 AM EST) P athologist Signature Glucose Lvl 89 60 - 199 CERNER mg/dL MILLENNIUM Comment: Diabetes: >=200 mg/dL plus symp toms BUN 8 8 - 18 mg/dL CERNER MILLENNIUM Creatinine 0.61 (L) 0.70 - 1.20 mg/dL CERNER MILL ENNIUM Comment: Please note that the pediatric reference intervals supplied above were not validated at [facility]. Results from pediatri c patients should be interpreted in conjunction to the patient's age, height and muscle mass. Sodium 137 135 - 145 mmol/L CERNER ARIS NIUM Potassium 3.5 3.5 - 5.0 mmol/L CERNER ARIS NIUM Comment: Please note: ??Patients with WBC >100,00 0 may have falsely elevated Potassium levels. ??For accurate Potassium quantif ication in these patients send serum separator tube (gold top) for subsequent determinations. ??Contact the Clinical Chemistry Laboratory if there are any qu estions. Chloride 99 98 - 107 mmol/L CERNER MILLENN IUM CO2 23 22 - 31 mmol/L CERNER MILLENNI UM Anion Gap 15 5 - 15 mmol/L CERNER MILLENNIU M Calcium 8.9 8.5 - 10.5 mg/dL CERNER ARIS NIUM Estimated GFR >60 >=60 CERNER MILLENNIU M Comment: This estimated GFR (eGFR) value was [...] the following links into your internet browser. [email or web address]/DHnkdep [email or web address] Specimen Anatomical Collection Method Collection Time Receive d Time (Source) Location / / Volume Laterality Blood specimen 07/28/2014 3:35 AM 014 4:01 (specimen) EST AM EST Resulting Agency Comment Spec In Lab Deepthi Alexander MD CHEMISTRY ORDERABLES Performing Organization Address City/[facility]/[place]IP [facility] [place] [address] CERNER MILLENNIUM (ABNORMAL) Differential, Automated (07/27/2014 4:30 AM EST) P athologist Signature Neutrophils % 59.2 % CERNER MILLENNIUM Neutr Abs (ANC) 4.03 1.50 - CERNER 6.30 MILLENNIUM x10(3)/mcL Lymphocytes % 28.7 % CERNER MILLENNIUM Lymphocytes Abs 2.0 1.0 - 3.6 CERNER x10(3)/mcL MILLENNIUM Monocytes % 7.4 % CERNER MILLENNIUM Monocyte Abs 0.5 0.2 - 1.0 CERNER x10(3)/mcL MILLENNIUM Eosinophils % 2.9 % CERNER MILLENNIUM Eosinophils Abs 0.2 0.0 - 0.5 CERNER x10(3)/mcL MILLENNIUM Basophils % 0.3 % CERNER MILLENNIUM Basophils Abs 0.0 0.0 - 0.2 CERNER x10(3)/mcL MILLENNIUM Immature Gran % 1.50 % CERNER MILLENNIUM Comment: Immature granulocytes(IG's)percentage an d absolute count will include metamyelocytes, myelocytes, and promyelo cytes. Blood smears from CBCs yielding IG's will be scanned manually for concor dance. If this scan disagrees with the automated IG or if promyelocytes are not ed, a manual differential will be performed. Helen Gran Abs 0.10 (H) 0.00 - 0.05 x10(3)/mcL CER NER MILLENNIUM Specimen Anatomical Collection Method Collection Time Receive d Time (Source) Location / / Volume Laterality Blood specimen 07/27/2014 4:30 AM 014 4:48 (specimen) EST AM EST Resulting Agency Comment Spec In Lab Deepthi Alexander MD HEMATOLOGY ORDERABLES Performing Organization Address City/State/ZIP Code [place] [address] CERNER MILLENNIUM (ABNORMAL) Hemogram (07/27/2014 4:30 AM EST) athologist Signature WBC 6.8 4.0 - 10.0 CERNER x10(3)/mcL MILLENNIUM RBC 3.70 (L) 3.93 - CERNER 5.22 MILLENNIUM x10(6)/mcL Hemoglobin 10.3 (L) 11.2 - CERNER 15.7 gm/dL MILLENNIUM Hematocrit 31.2 (L) 34.0 - CERNER 45.0 % MILLENNIUM MCV 84.3 79.0 - CERNER 94.0 fL MILLENNIUM MCH 27.8 26.6 - CERNER 32.2 pg MILLENNIUM MCHC 33.0 32.0 - CERNER 36.5 gm/dL MILLENNIUM Platelets 230 145 - 370 CERNER x10(3)/mcL MILLENNIUM RDWSD 43.4 35.0 - CERNER 46.0 fL MILLENNIUM RDWCV 14.1 10.9 - CERNER 14.4 % MILLENNIUM MPV 9.9 9.0 - 12.0 CERNER fL MILLENNIUM Specimen Anatomical Collection Method Collection Time Receive d Time (Source) Location / / Volume Laterality Blood specimen 07/27/2014 4:30 AM 014 4:48 (specimen) EST AM EST Resulting Agency Comment Spec In Lab Deepthi Alexander MD HEMATOLOGY ORDERABLES Performing Organization Address City/[facility]/ZIP Code [place] [address] CERNER MILLENNIUM (ABNORMAL) Basic Metabolic Panel (non-fasting) (07/27/2014 4:30 AM EST) athologist Signature Glucose Lvl 86 60 - 199 CERNER mg/dL MILLENNIUM Comment: Diabetes: >=200 mg/dL plus symp toms BUN 8 8 - 18 mg/dL CERNER MILLENNIUM Creatinine 0.58 (L) 0.70 - 1.20 mg/dL CERNER MILL ENNIUM Comment: Please note that the pediatric reference intervals supplied above were not validated at [facility]. Results from pediatri c patients should be interpreted in conjunction to the patient's age, height and muscle mass. Sodium 138 135 - 145 mmol/L CERNER ARIS NIUM Potassium 3.4 (L) 3.5 - 5.0 mmol/L CERNER ARIS NIUM Comment: Please note: ??Patients with WBC >100,00 0 may have falsely elevated Potassium levels. ??For accurate Potassium quantif ication in these patients send serum separator tube (gold top) for subsequent determinations. ??Contact the Clinical Chemistry Laboratory if there are any qu estions. Chloride 98 98 - 107 mmol/L CERNER MILLENN IUM CO2 24 22 - 31 mmol/L CERNER MILLENNI UM Anion Gap 16 (H) 5 - 15 mmol/L CERNER MILLENNIU M Calcium 9.2 8.5 - 10.5 mg/dL CERNER ARIS NIUM Estimated GFR >60 >=60 CERNER MILLENNIU M Comment: This estimated GFR (eGFR) value was [...] the following links into your internet browser. [email or web address] Specimen Anatomical Collection Method Collection Time Receive d Time (Source) Location / / Volume Laterality Blood specimen 07/27/2014 4:30 AM 014 4:48 (specimen) EST AM EST Resulting Agency Comment Spec In Lab Deepthi Alexander MD CHEMISTRY ORDERABLES Performing Organization Address City/State/ZIP Code Phon e Number [place] [phone] CERNER MILLENNIUM (ABNORMAL) Differential, Automated (07/26/2014 6:00 AM EST) P athologist Signature Neutrophils % 62.1 % CERNER MILLENNIUM Neutr Abs (ANC) 4.23 1.50 - CERNER 6.30 MILLENNIUM x10(3)/mcL Lymphocytes % 26.2 % CERNER MILLENNIUM Lymphocytes Abs 1.8 1.0 - 3.6 CERNER x10(3)/mcL MILLENNIUM Monocytes % 7.0 % CERNER MILLENNIUM Monocyte Abs 0.5 0.2 - 1.0 CERNER x10(3)/mcL MILLENNIUM Eosinophils % 3.4 % CERNER MILLENNIUM Eosinophils Abs 0.2 0.0 - 0.5 CERNER x10(3)/mcL MILLENNIUM Basophils % 0.1 % CERNER MILLENNIUM Basophils Abs 0.0 0.0 - 0.2 CERNER x10(3)/mcL MILLENNIUM Immature Gran % 1.20 % CERNER MILLENNIUM Comment: Immature granulocytes(IG's)percentage an d absolute count will include metamyelocytes, myelocytes, and promyelo cytes. Blood smears from CBCs yielding IG's will be scanned manually for concor dance. If this scan disagrees with the automated IG or if promyelocytes are not ed, a manual differential will be performed. Helen Gran Abs 0.08 (H) 0.00 - 0.05 x10(3)/mcL CER NER MILLENNIUM Specimen Anatomical Collection Method Collection Time Receive d Time (Source) Location / / Volume Laterality Blood specimen 07/26/2014 6:00 AM 014 6:57 (specimen) EST AM EST Resulting Agency Comment Spec In Lab Deepthi Alexander MD HEMATOLOGY ORDERABLES Performing Organization Address City/State/ZIP Code Phon e Number [place] [phone] CERNER MILLENNIUM (ABNORMAL) Hemogram (07/26/2014 6:00 AM EST) P athologist Signature WBC 6.8 4.0 - 10.0 CERNER x10(3)/mcL MILLENNIUM RBC 3.53 (L) 3.93 - CERNER 5.22 MILLENNIUM x10(6)/mcL Hemoglobin 9.9 (L) 11.2 - CERNER 15.7 gm/dL MILLENNIUM Hematocrit 30.2 (L) 34.0 - CERNER 45.0 % MILLENNIUM MCV 85.6 79.0 - CERNER 94.0 fL MILLENNIUM MCH 28.0 26.6 - CERNER 32.2 pg MILLENNIUM MCHC 32.8 32.0 - CERNER 36.5 gm/dL MILLENNIUM Platelets 214 145 - 370 CERNER x10(3)/mcL MILLENNIUM RDWSD 45.3 35.0 - CERNER 46.0 fL MILLENNIUM RDWCV 14.6 (H) 10.9 - CERNER 14.4 % MILLENNIUM MPV 9.6 9.0 - 12.0 CERNER fL MILLENNIUM Specimen Anatomical Collection Method Collection Time Receive d Time (Source) Location / / Volume Laterality Blood specimen 07/26/2014 6:00 AM 014 6:57 (specimen) EST AM EST Resulting Agency Comment Spec In Lab Deepthi Alexander MD HEMATOLOGY ORDERABLES Performing Organization Address City/State/ZIP Code Phon e Number [place] [phone] CERNER MILLENNIUM (ABNORMAL) Basic Metabolic Panel (non-fasting) (07/26/2014 6:00 AM EST) athologist Signature Glucose Lvl 76 60 - 199 CERNER mg/dL MILLENNIUM Comment: Diabetes: >=200 mg/dL plus symp toms BUN 12 8 - 18 mg/dL CERNER MILLENNIUM Creatinine 0.56 (L) 0.70 - 1.20 mg/dL CERNER MILL ENNIUM Comment: Please note that the pediatric reference intervals supplied above were not validated at [facility]. Results from pediatri c patients should be interpreted in conjunction to the patient's age, height and muscle mass. Sodium 142 135 - 145 mmol/L CERNER ARIS NIUM Potassium 3.5 3.5 - 5.0 mmol/L CERNER ARIS NIUM Comment: Please note: ??Patients with WBC >100,00 0 may have falsely elevated Potassium levels. ??For accurate Potassium quantif ication in these patients send serum separator tube (gold top) for subsequent determinations. ??Contact the Clinical Chemistry Laboratory if there are any qu estions. Chloride 102 98 - 107 mmol/L CERNER MILLENN IUM CO2 26 22 - 31 mmol/L CERNER MILLENNI UM Anion Gap 14 5 - 15 mmol/L CERNER MILLENNIU M Calcium 8.7 8.5 - 10.5 mg/dL CERNER ARIS NIUM Estimated GFR >60 >=60 MICHELLE Reeder Comment: This estimated GFR (eGFR) value [...] the following links into your internet browser. [email or web address] Specimen Anatomical Collection Method Collection Time Receive d Time (Source) Location / / Volume Laterality Blood specimen 07/26/2014 6:00 AM 014 6:57 (specimen) EST AM EST Resulting Agency Comment Spec In Lab Deepthi Alexander MD CHEMISTRY ORDERABLES Performing Organization Address City/State/ZIP Code [place] [address] MICHELLE ROJASIUM XR abdomen acute series with PA chest (07/25/2014 11:28 AM EST) Anatomical Region Laterality Modality Abdomen, Chest N/A Radiographic Imaging Specimen (Source) Anatomical Collection Method Collection Time Re ceived Time Location / / Volume Laterality 07/25/2014 11:28 AM EST Narrative 07/25/2014 11:34 AM EST Examination ACUTE ABD SERIES WITH PA CHEST/CORE Clinical History pod#5 from ileostomy reversal. no return of bowel function. ?ileus vs obstruction. Comparison None Technique Single-view chest. ??3 views abdomen. Findings Chest: No acute lung disease. Abdomen: Scattered, nonspecific small bowel air-f luid levels. ??No distended loops of small bowel. ??No evidence of small amanda l obstruction. Nasogastric tube tip in stomach. No free air. ?? Paucity of bowel gas in the colon. Impression Procedure Note Lenny Cody MD - 07/25/2014Form atting of this note might be different from the original. Examination ACUTE ABD SERIES WITH PA CHEST/CORE Clinical History pod#5 from ileostomy reversal. no return of bowel function. ?ileus vs obstruction. Comparison None Technique Single-view chest. 3 views abdomen. Findings Chest: No acute lung disease. Abdomen: Scattered, nonspecific small bowel air-f luid levels. No distended loops of small bowel. No evidence of small bowel obstruction. Nasogastric tube tip in stomach. No free air. Paucity of bowel gas in the colon. Impression Blas uGtierrez III, MD IMG DX ORDERABLES (ABNORMAL) Differential, Automated (07/25/2014 4:53 AM EST) athologist Signature Neutrophils % 63.6 % CERNER MILLENNIUM Neutr Abs (ANC) 5.94 1.50 - CERNER 6.30 MILLENNIUM x10(3)/mcL Lymphocytes % 27.1 % CERNER MILLENNIUM Lymphocytes Abs 2.5 1.0 - 3.6 CERNER x10(3)/mcL MILLENNIUM Monocytes % 6.4 % CERNER MILLENNIUM Monocyte Abs 0.6 0.2 - 1.0 CERNER x10(3)/mcL MILLENNIUM Eosinophils % 1.8 % CERNER MILLENNIUM Eosinophils Abs 0.2 0.0 - 0.5 CERNER x10(3)/mcL MILLENNIUM Basophils % 0.2 % CERNER MILLENNIUM Basophils Abs 0.0 0.0 - 0.2 CERNER x10(3)/mcL MILLENNIUM Immature Gran % 0.90 % CERNER MILLENNIUM Comment: Immature granulocytes(IG's)percentage an d absolute count will include metamyelocytes, myelocytes, and promyelo cytes. Blood smears from CBCs yielding IG's will be scanned manually for concor dance. If this scan disagrees with the automated IG or if promyelocytes are not ed, a manual differential will be performed. Helen Gran Abs 0.08 (H) 0.00 - 0.05 x10(3)/mcL CER NER MILLENNIUM Specimen Anatomical Collection Method Collection Time Receive d Time (Source) Location / / Volume Laterality Blood specimen 07/25/2014 4:53 AM 014 4:58 (specimen) EST AM EST Resulting Agency Comment Spec In Lab Deepthi Alexander MD HEMATOLOGY ORDERABLES Performing Organization Address City/State/ZIP Code [place] [address] CERNER MILLENNIUM (ABNORMAL) Hemogram (07/25/2014 4:53 AM EST) athologist Signature WBC 9.3 4.0 - 10.0 CERNER x10(3)/mcL MILLENNIUM RBC 3.73 (L) 3.93 - CERNER 5.22 MILLENNIUM x10(6)/mcL Hemoglobin 10.4 (L) 11.2 - CERNER 15.7 gm/dL MILLENNIUM Hematocrit 32.2 (L) 34.0 - CERNER 45.0 % MILLENNIUM MCV 86.3 79.0 - CERNER 94.0 fL MILLENNIUM MCH 27.9 26.6 - CERNER 32.2 pg MILLENNIUM MCHC 32.3 32.0 - CERNER 36.5 gm/dL MILLENNIUM Platelets 243 145 - 370 CERNER x10(3)/mcL MILLENNIUM RDWSD 45.1 35.0 - CERNER 46.0 fL MILLENNIUM RDWCV 14.4 10.9 - CERNER 14.4 % MILLENNIUM MPV 9.7 9.0 - 12.0 CERNER fL MILLENNIUM Specimen Anatomical Collection Method Collection Time Receive d Time (Source) Location / / Volume Laterality Blood specimen 07/25/2014 4:53 AM 014 4:58 (specimen) EST AM EST Resulting Agency Comment Spec In Lab Deepthi Alexander MD HEMATOLOGY ORDERABLES Performing Organization Address City/State/ZIP Code [place] [address] CERNER MILLENNIUM (ABNORMAL) Basic Metabolic Panel (non-fasting) (07/25/2014 4:53 AM EST) athologist Signature Glucose Lvl 88 60 - 199 CERNER mg/dL MILLENNIUM Comment: Diabetes: >=200 mg/dL plus symp toms BUN 13 8 - 18 mg/dL CERNER MILLENNIUM Creatinine 0.63 (L) 0.70 - 1.20 mg/dL CERNER MILL ENNIUM Comment: Please note that the pediatric reference intervals supplied above were not validated at [facility]. Results from pediatri c patients should be interpreted in conjunction to the patient's age, height and muscle mass. Sodium 139 135 - 145 mmol/L CERNER ARIS NIUM Potassium 4.1 3.5 - 5.0 mmol/L CERNER ARIS NIUM Comment: Please note: ??Patients with WBC >100,00 0 may have falsely elevated Potassium levels. ??For accurate Potassium quantif ication in these patients send serum separator tube (gold top) for subsequent determinations. ??Contact the Clinical Chemistry Laboratory if there are any qu estions. Chloride 99 98 - 107 mmol/L CERNER MILLENN IUM CO2 27 22 - 31 mmol/L CERNER MILLENNI UM Anion Gap 13 5 - 15 mmol/L CERNER MILLENNIU M Calcium 8.9 8.5 - 10.5 mg/dL CERNER ARIS NIUM Estimated GFR >60 >=60 CERNER MILLENNIU M Comment: This estimated GFR (eGFR) value was [...] the following links into your internet browser. [email or web address] Specimen Anatomical Collection Method Collection Time Receive d Time (Source) Location / / Volume Laterality Blood specimen 07/25/2014 4:53 AM 014 4:58 (specimen) EST AM EST Resulting Agency Comment Spec In Lab Deepthi Alexander MD CHEMISTRY ORDERABLES Performing Organization Address City/State/ZIP Code Phon e Number [place] [phone] CERNER MILLENNIUM XR abdomen 1 view (07/24/2014 5:51 PM EST) Anatomical Region Laterality Modality Abdomen N/A Radiographic Imaging Specimen (Source) Anatomical Collection Method Collection Time Re ceived Time Location / / Volume Laterality 07/24/2014 5:51 PM EST Narrative 07/24/2014 8:58 PM EST Examination ABDOMEN SINGLE VIEW/CORE Clinical History post ngt placement Comparison None Technique Single supine abdomen. Findings A feeding tube extends below the level o f the diaphragm and current across midline at the level of the gastric body . ??Surgical clips are present in the right upper quadrant. Procedure Note Marlon Rosenberg MD - 07/24/2014Forma tting of this note might be different from the original. Examination ABDOMEN SINGLE VIEW/CORE Clinical History post ngt placement Comparison None Technique Single supine abdomen. Findings A feeding tube extends below the level o f the diaphragm and current across midline at the level of the gastric body . Surgical clips are present in the right upper quadrant. Blas Gutierrez III, MD IMG DX ORDERABLES (ABNORMAL) Differential, Automated (07/24/2014 4:50 AM EST) [facility] Method Time Signature Neutrophils % 79.0 % CERNER MILLENNIUM Neutr Abs (ANC) 9.64 (H) 1.50 - CERNER 6.30 MILLENNIUM x10(3)/mc L Lymphocytes % 11.7 % CERNER MILLENNIUM Lymphocytes Abs 1.4 1.0 - 3.6 CERNER x10(3)/mc MILLENNIUM L Monocytes % 6.9 % CERNER MILLENNIUM Monocyte Abs 0.8 0.2 - 1.0 CERNER x10(3)/mc MILLENNIUM L Eosinophils % 1.6 % CERNER MILLENNIUM Eosinophils Abs 0.2 0.0 - 0.5 CERNER x10(3)/mc MILLENNIUM L Basophils % 0.2 % CERNER MILLENNIUM Basophils Abs 0.0 0.0 - 0.2 CERNER x10(3)/mc MILLENNIUM L Immature Gran % 0.60 % CERNER MILLENNIUM Comment: Immature granulocytes(IG's)percentage an d absolute count will include metamyelocytes, myelocytes, and promyelo cytes. Blood smears from CBCs yielding IG's will be scanned manually for concor dance. If this scan disagrees with the automated IG or if promyelocytes are not ed, a manual differential will be performed. Helen Gran Abs 0.07 (H) 0.00 - 0.05 x10(3)/mcL CER NER MILLENNIUM Specimen Anatomical Collection Method Collection Time Receive d Time (Source) Location / / Volume Laterality Blood specimen 07/24/2014 4:50 AM 014 5:21 (specimen) EST AM EST Resulting Agency Comment Spec In Lab Deepthi Alexander MD HEMATOLOGY ORDERABLES Performing Organization Address City/[facility]/ZIP Code [place] [address] CERNER MILLENNIUM (ABNORMAL) Hemogram (07/24/2014 4:50 AM EST) P athologist Signature WBC 12.2 (H) 4.0 - 10.0 CERNER x10(3)/mcL MILLENNIUM RBC 4.55 3.93 - CERNER 5.22 MILLENNIUM x10(6)/mcL Hemoglobin 12.9 11.2 - CERNER 15.7 gm/dL MILLENNIUM Hematocrit 39.1 34.0 - CERNER 45.0 % MILLENNIUM MCV 85.9 79.0 - CERNER 94.0 fL MILLENNIUM MCH 28.4 26.6 - CERNER 32.2 pg MILLENNIUM MCHC 33.0 32.0 - CERNER 36.5 gm/dL MILLENNIUM Platelets 318 145 - 370 CERNER x10(3)/mcL MILLENNIUM RDWSD 46.3 (H) 35.0 - CERNER 46.0 fL MILLENNIUM RDWCV 14.9 (H) 10.9 - CERNER 14.4 % MILLENNIUM MPV 10.1 9.0 - 12.0 CERNER fL MILLENNIUM Specimen Anatomical Collection Method Collection Time Receive d Time (Source) Location / / Volume Laterality Blood specimen 07/24/2014 4:50 AM 014 5:21 (specimen) EST AM EST Resulting Agency Comment Spec In Lab Deepthi Alexander MD HEMATOLOGY ORDERABLES Performing Organization Address City/[facility]/ZIP Code [place] [address] CERNER MILLENNIUM (ABNORMAL) Basic Metabolic Panel (non-fasting) (07/24/2014 4:50 AM EST) P athologist Signature Glucose Lvl 135 60 - 199 CERNER mg/dL MILLENNIUM Comment: Diabetes: >=200 mg/dL plus symp toms BUN 11 8 - 18 mg/dL CERNER MILLENNIUM Comment: result rechecked- llu Creatinine 0.59 (L) 0.70 - 1.20 mg/dL CERNER MILL ENNIUM Comment: Please note that the pediatric reference intervals supplied above were not validated at [facility]. Results from pediatri c patients should be interpreted in conjunction to the patient's age, height and muscle mass. Sodium 140 135 - 145 mmol/L CERNER ARIS NIUM Potassium 3.7 3.5 - 5.0 mmol/L CERNER ARIS NIUM Comment: Please note: ??Patients with WBC >100,00 0 may have falsely elevated Potassium levels. ??For accurate Potassium quantif ication in these patients send serum separator tube (gold top) for subsequent determinations. ??Contact the Clinical Chemistry Laboratory if there are any qu estions. Chloride 102 98 - 107 mmol/L CERNER MILLENN IUM CO2 22 22 - 31 mmol/L CERNER MILLENNI UM Anion Gap 16 (H) 5 - 15 mmol/L CERNER MILLENNIU M Calcium 9.2 8.5 - 10.5 mg/dL CERNER ARIS NIUM Estimated GFR >60 >=60 CERNER MILLENNIU M Comment: This estimated GFR (eGFR) value was [...] the following links into your internet browser. [email or web address] Specimen Anatomical Collection Method Collection Time Receive d Time (Source) Location / / Volume Laterality Blood specimen 07/24/2014 4:50 AM 014 5:21 (specimen) EST AM EST Resulting Agency Comment Spec In Lab Deepthi Alexander MD CHEMISTRY ORDERABLES Performing Organization Address City/State/Z[place] [address] CERNER MILLENNIUM Differential, Automated (07/23/2014 4:41 AM EST) P athologist Signature Neutrophils % 65.8 % CERNER MILLENNIUM Neutr Abs (ANC) 4.77 1.50 - CERNER 6.30 MILLENNIUM x10(3)/mcL Lymphocytes % 22.5 % CERNER MILLENNIUM Lymphocytes Abs 1.6 1.0 - 3.6 CERNER x10(3)/mcL MILLENNIUM Monocytes % 7.6 % CERNER MILLENNIUM Monocyte Abs 0.6 0.2 - 1.0 CERNER x10(3)/mcL MILLENNIUM Eosinophils % 3.4 % CERNER MILLENNIUM Eosinophils Abs 0.2 0.0 - 0.5 CERNER x10(3)/mcL MILLENNIUM Basophils % 0.1 % CERNER MILLENNIUM Basophils Abs 0.0 0.0 - 0.2 CERNER x10(3)/mcL MILLENNIUM Immature Gran % 0.60 % CERNER MILLENNIUM Comment: Immature granulocytes(IG's)percentage an d absolute count will include metamyelocytes, myelocytes, and promyelo cytes. Blood smears from CBCs yielding IG's will be scanned manually for concor dance. If this scan disagrees with the automated IG or if promyelocytes are not ed, a manual differential will be performed. Helen Gran Abs 0.04 0.00 - 0.05 x10(3)/mcL CER NER MILLENNIUM Specimen Anatomical Collection Method Collection Time Receive d Time (Source) Location / / Volume Laterality Blood specimen 07/23/2014 4:41 AM 014 5:12 (specimen) EST AM EST Resulting Agency Comment Spec In Lab Deepthi Alexander MD HEMATOLOGY ORDERABLES Performing Organization Address City/State/ZIP Code Phon e Number [place] [phone] CERNER MILLENNIUM (ABNORMAL) Hemogram (07/23/2014 4:41 AM EST) P athologist Signature WBC 7.2 4.0 - 10.0 CERNER x10(3)/mcL MILLENNIUM RBC 3.33 (L) 3.93 - CERNER 5.22 MILLENNIUM x10(6)/mcL Hemoglobin 9.3 (L) 11.2 - CERNER 15.7 gm/dL MILLENNIUM Hematocrit 29.2 (L) 34.0 - CERNER 45.0 % MILLENNIUM MCV 87.7 79.0 - CERNER 94.0 fL MILLENNIUM MCH 27.9 26.6 - CERNER 32.2 pg MILLENNIUM MCHC 31.8 (L) 32.0 - CERNER 36.5 gm/dL MILLENNIUM Platelets 182 145 - 370 CERNER x10(3)/mcL MILLENNIUM RDWSD 48.6 (H) 35.0 - CERNER 46.0 fL MILLENNIUM RDWCV 15.2 (H) 10.9 - CERNER 14.4 % MILLENNIUM MPV 9.1 9.0 - 12.0 CERNER fL MILLENNIUM Specimen Anatomical Collection Method Collection Time Receive d Time (Source) Location / / Volume Laterality Blood specimen 07/23/2014 4:41 AM 014 5:12 (specimen) EST AM EST Resulting Agency Comment Spec In Lab Deepthi Alexander MD HEMATOLOGY ORDERABLES Performing Organization Address City/State/ZIP Code Phon e Number [place] [phone] CERNER MILLENNIUM (ABNORMAL) Basic Metabolic Panel (non-fasting) (07/23/2014 4:41 AM EST) athologist Signature Glucose Lvl 86 60 - 199 CERNER mg/dL MILLENNIUM Comment: Diabetes: >=200 mg/dL plus symp toms BUN 6 (L) 8 - 18 mg/dL CERNER MILLENNIUM Creatinine 0.58 (L) 0.70 - 1.20 mg/dL CERNER MILL ENNIUM Comment: Please note that the pediatric reference intervals supplied above were not validated at [facility]. Results from pediatri c patients should be interpreted in conjunction to the patient's age, height and muscle mass. Sodium 141 135 - 145 mmol/L CERNER ARIS NIUM Potassium 3.7 3.5 - 5.0 mmol/L CERNER ARIS NIUM Comment: Please note: ??Patients with WBC >100,00 0 may have falsely elevated Potassium levels. ??For accurate Potassium quantif ication in these patients send serum separator tube (gold top) for subsequent determinations. ??Contact the Clinical Chemistry Laboratory if there are any qu estions. Chloride 105 98 - 107 mmol/L CERNER MILLENN IUM CO2 26 22 - 31 mmol/L CERNER MILLENNI UM Anion Gap 10 5 - 15 mmol/L CERNER MILLENNIU M Calcium 8.7 8.5 - 10.5 mg/dL MICHELLE HURST NIUM Estimated GFR >60 >=60 CERERIN ROJASIU M Comment: This estimated GFR (eGFR) value was [...] the following links into your internet browser. [email or web address] Specimen Anatomical Collection Method Collection Time Receive d Time (Source) Location / / Volume Laterality Blood specimen 07/23/2014 4:41 AM 014 5:12 (specimen) EST AM EST Resulting Agency Comment Spec In Lab Deepthi Alexander MD CHEMISTRY ORDERABLES Performing Organization Address City/State/ZIP Code [place] [address] CERNER MILLENNIUM (ABNORMAL) Differential, Automated (07/22/2014 5:16 AM EST) [facility] Method Time Signature Neutrophils % 70.9 % CERNER MILLENNIUM Neutr Abs (ANC) 6.64 (H) 1.50 - CERNER 6.30 MILLENNIUM x10(3)/mc L Lymphocytes % 20.0 % CERNER MILLENNIUM Lymphocytes Abs 1.9 1.0 - 3.6 CERNER x10(3)/mc MILLENNIUM L Monocytes % 6.9 % CERNER MILLENNIUM Monocyte Abs 0.6 0.2 - 1.0 CERNER x10(3)/mc MILLENNIUM L Eosinophils % 1.9 % CERNER MILLENNIUM Eosinophils Abs 0.2 0.0 - 0.5 CERNER x10(3)/mc MILLENNIUM L Basophils % 0.1 % CERNER MILLENNIUM Basophils Abs 0.0 0.0 - 0.2 CERNER x10(3)/mc MILLENNIUM L Immature Gran % 0.20 % CERNER MILLENNIUM Comment: Immature granulocytes(IG's)percentage an d absolute count will include metamyelocytes, myelocytes, and promyelo cytes. Blood smears from CBCs yielding IG's will be scanned manually for concor dance. If this scan disagrees with the automated IG or if promyelocytes are not ed, a manual differential will be performed. Helen Gran Abs 0.02 0.00 - 0.05 x10(3)/mcL CER NER MILLENNIUM Specimen Anatomical Collection Method Collection Time Receive d Time (Source) Location / / Volume Laterality Blood specimen 07/22/2014 5:16 AM 014 5:31 (specimen) EST AM EST Resulting Agency Comment Spec In Lab Deepthi Alexander MD HEMATOLOGY ORDERABLES Performing Organization Address City/State/ZIP Code Phon e Number [place] [phone] CERNER MILLENNIUM (ABNORMAL) Hemogram (07/22/2014 5:16 AM EST) P athologist Signature WBC 9.4 4.0 - 10.0 CERNER x10(3)/mcL MILLENNIUM RBC 3.42 (L) 3.93 - CERNER 5.22 MILLENNIUM x10(6)/mcL Hemoglobin 9.8 (L) 11.2 - CERNER 15.7 gm/dL MILLENNIUM Hematocrit 29.9 (L) 34.0 - CERNER 45.0 % MILLENNIUM MCV 87.4 79.0 - CERNER 94.0 fL MILLENNIUM MCH 28.7 26.6 - CERNER 32.2 pg MILLENNIUM MCHC 32.8 32.0 - CERNER 36.5 gm/dL MILLENNIUM Platelets 176 145 - 370 CERNER x10(3)/mcL MILLENNIUM RDWSD 48.0 (H) 35.0 - CERNER 46.0 fL MILLENNIUM RDWCV 15.2 (H) 10.9 - CERNER 14.4 % MILLENNIUM MPV 9.4 9.0 - 12.0 CERNER fL MILLENNIUM Specimen Anatomical Collection Method Collection Time Receive d Time (Source) Location / / Volume Laterality Blood specimen 07/22/2014 5:16 AM 014 5:31 (specimen) EST AM EST Resulting Agency Comment Spec In Lab Deepthi Alexander MD HEMATOLOGY ORDERABLES Performing Organization Address City/State/ZIP Code Phon e Number [place] [phone] CERNER MILLENNIUM (ABNORMAL) Basic Metabolic Panel (non-fasting) (07/22/2014 5:16 AM EST) P athologist Signature Glucose Lvl 95 60 - 199 CERNER mg/dL MILLENNIUM Comment: Diabetes: >=200 mg/dL plus symp toms BUN 9 8 - 18 mg/dL CERNER MILLENNIUM Creatinine 0.65 (L) 0.70 - 1.20 mg/dL CERNER MILL ENNIUM Comment: Please note that the pediatric reference intervals supplied above were not validated at [facility]. Results from pediatri c patients should be interpreted in conjunction to the patient's age, height and muscle mass. Sodium 139 135 - 145 mmol/L CERNER ARIS NIUM Potassium 3.5 3.5 - 5.0 mmol/L CERNER ARIS NIUM Comment: Please note: ??Patients with WBC >100,00 0 may have falsely elevated Potassium levels. ??For accurate Potassium quantif ication in these patients send serum separator tube (gold top) for subsequent determinations. ??Contact the Clinical Chemistry Laboratory if there are any qu estions. Chloride 101 98 - 107 mmol/L CERNER MILLENN IUM CO2 27 22 - 31 mmol/L CERNER MILLENNI UM Anion Gap 11 5 - 15 mmol/L CERNER MILLENNIU M Calcium 8.4 (L) 8.5 - 10.5 mg/dL CERNER ARIS NIUM Estimated GFR >60 >=60 CERNER MILLENNIU M Comment: This estimated GFR (eGFR) value was [...] the following links into your internet browser. [email or web address] Specimen Anatomical Collection Method Collection Time Receive d Time (Source) Location / / Volume Laterality Blood specimen 07/22/2014 5:16 AM 014 5:31 (specimen) EST AM EST Resulting Agency Comment Spec In Lab Deepthi Alexander MD CHEMISTRY ORDERABLES Performing Organization Address City/State/[place] [address] CERNER MILLENNIUM (ABNORMAL) Differential, Automated (07/21/2014 4:38 AM EST) [facility] gist Method Time Signature Neutrophils % 87.5 % CERNER MILLENNIUM Neutr Abs (ANC) 15.14 (H) 1.50 - CERNER 6.30 MILLENNIUM x10(3)/mc L Lymphocytes % 6.1 % CERNER MILLENNIUM Lymphocytes Abs 1.0 1.0 - 3.6 CERNER x10(3)/mc MILLENNIUM L Monocytes % 6.0 % CERNER MILLENNIUM Monocyte Abs 1.0 0.2 - 1.0 CERNER x10(3)/mc MILLENNIUM L Eosinophils % 0.0 % CERNER MILLENNIUM Eosinophils Abs 0.0 0.0 - 0.5 CERNER x10(3)/mc MILLENNIUM L Basophils % 0.1 % CERNER MILLENNIUM Basophils Abs 0.0 0.0 - 0.2 CERNER x10(3)/mc MILLENNIUM L Immature Gran % 0.30 % CERNER MILLENNIUM Comment: Immature granulocytes(IG's)percentage an d absolute count will include metamyelocytes, myelocytes, and promyelo cytes. Blood smears from CBCs yielding IG's will be scanned manually for concor dance. If this scan disagrees with the automated IG or if promyelocytes are not ed, a manual differential will be performed. Helen Gran Abs 0.05 0.00 - 0.05 x10(3)/mcL CER NER MILLENNIUM Specimen Anatomical Collection Method Collection Time Receive d Time (Source) Location / / Volume Laterality Blood specimen 07/21/2014 4:38 AM 014 4:46 (specimen) EST AM EST Resulting Agency Comment Spec In Lab Deepthi Alexander MD HEMATOLOGY ORDERABLES Performing Organization Address City/State/ZIP [place] [address] CERNER MILLENNIUM (ABNORMAL) Hemogram (07/21/2014 4:38 AM EST) athologist Signature WBC 17.3 (H) 4.0 - 10.0 CERNER x10(3)/mcL MILLENNIUM RBC 4.19 3.93 - CERNER 5.22 MILLENNIUM x10(6)/mcL Hemoglobin 11.7 11.2 - CERNER 15.7 gm/dL MILLENNIUM Hematocrit 35.4 34.0 - CERNER 45.0 % MILLENNIUM MCV 84.5 79.0 - CERNER 94.0 fL MILLENNIUM MCH 27.9 26.6 - CERNER 32.2 pg MILLENNIUM MCHC 33.1 32.0 - CERNER 36.5 gm/dL MILLENNIUM Platelets 224 145 - 370 CERNER x10(3)/mcL MILLENNIUM RDWSD 46.2 (H) 35.0 - CERNER 46.0 fL MILLENNIUM RDWCV 15.0 (H) 10.9 - CERNER 14.4 % MILLENNIUM MPV 9.1 9.0 - 12.0 CERNER fL MILLENNIUM Specimen Anatomical Collection Method Collection Time Receive d Time (Source) Location / / Volume Laterality Blood specimen 07/21/2014 4:38 AM 014 4:46 (specimen) EST AM EST Resulting Agency Comment Spec In Lab Deepthi Alexander MD HEMATOLOGY ORDERABLES Performing Organization Address City/State/ZIP Code Phon e Number JESUS MANUEL ESPARZA[address] CERNER MILLENNIUM Basic Metabolic Panel (non-fasting) (07/21/2014 4:38 AM EST) athologist Signature Glucose Lvl 134 60 - 199 CERNER mg/dL MILLENNIUM Comment: Diabetes: >=200 mg/dL plus symp toms BUN 8 8 - 18 mg/dL CERNER MILLENNIUM Creatinine 0.79 0.70 - 1.20 mg/dL CERNER MILL ENNIUM Comment: Please note that the pediatric reference intervals supplied above were not validated at [facility]. Results from pediatri c patients should be interpreted in conjunction to the patient's age, height and muscle mass. Sodium 139 135 - 145 mmol/L CERNER ARIS NIUM Potassium 4.3 3.5 - 5.0 mmol/L CERNER ARIS NIUM Comment: Please note: ??Patients with WBC >100,00 0 may have falsely elevated Potassium levels. ??For accurate Potassium quantif ication in these patients send serum separator tube (gold top) for subsequent determinations. ??Contact the Clinical Chemistry Laboratory if there are any qu estions. Chloride 100 98 - 107 mmol/L CERNER MILLENN IUM CO2 24 22 - 31 mmol/L CERNER MILLENNI UM Anion Gap 15 5 - 15 mmol/L CERNER MILLENNIU M Calcium 8.8 8.5 - 10.5 mg/dL CERNER ARIS NIUM Estimated GFR >60 >=60 CERNER MILLENNIU M Comment: This estimated GFR (eGFR) value was [...] the following links into your internet browser. http://Memento/DHnkdep http://Memento/DHMCnkf Specimen Anatomical Collection Method Collection Time Receive d Time (Source) Location / / Volume Laterality Blood specimen 07/21/2014 4:38 AM 014 4:46 (specimen) EST AM EST Resulting Agency Comment Spec In Lab Deepthi Alexander MD CHEMISTRY ORDERABLES Performing Organization Address City/State/ZIP [place] [address] CERNER MILLENNIUM XR abdomen 1 view (07/20/2014 6:29 PM EST) Anatomical Region Laterality Modality Abdomen N/A Radiographic Imaging Specimen (Source) Anatomical Collection Method Collection Time Re ceived Time Location / / Volume Laterality 07/20/2014 6:29 PM EST Narrative 07/20/2014 6:[address] scan 01/28/2014. Examination ABDOMEN SINGLE VIEW/XPORT Clinical History [place] Screening for foreign object RETAINED OBJECT PROTOCOL---OR20 CALL [id number] WITH RESULT Comparison None Technique Findings NG tube projects over left upper quadran t. ??An additional small metallic density projects above the NG tube and m ay represent a portion of the NG tube. ?? This is above the top clips and therefor e not within the surgical field. ?? Remainder of the abdomen appears normal. ?? Impression No evidence of retained surgical object . Procedure Note Ana Almanza MD - 07/[address] scan 01/28/2014. Examination ABDOMEN SINGLE VIEW/XPORT Clinical History TN Screening for foreign object RETAINED OBJECT PROTOCOL---OR20 CALL [id number] WITH RESULT Comparison None Technique Findings NG tube projects over left upper quadran t. An additional small metallic density projects above the NG tube and m ay represent a portion of the NG tube. This is above the top clips and therefor e not within the surgical field. Remainder of the abdomen appears normal. Impression No evidence of retained surgical object . Deepthi Alexander MD IMG DX ORDERABLES Surgical Pathology Report (07/20/2014 5:11 PM EST) Component Value Ref Test Analysis Performed At [facility] Method Time Signature Surgical CERNER Pathology ? [facility] Report ? Provider: ?? DEEPTHI ALEXANDER ?Pt. Name: ?? AARON BARTON ? Acc #: ?[id number] ?Pt. MRN: ?[id number] ? Col Date: ?? 07/20/20 14 ?/Sex: ?1975,(39 years),Female ? Rec Date: ?? 07/20/2014 ?LOC: ?FTU ? SURGICAL PATHOLOGY ? ---Pathologic Diagnosis--- ? 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 ? CR-0 ? 07/23/14 ? JLH ? 07/23/14 Verified by: ? Jim Anderson MD ? Pathologist ? (Electronic Si gnature) ? The attending pathologist whose signature appears o n this report has ? reviewed all diagnostic slides and has edited the hai ss and/or ? microscopic portion of the report in rendering the fi nal pathologic ? diagnosis. ? ---Gross Description--- ? A - Labeled/Fixative: Terminal ileum, fresh. ? Quantity/Size: Single, 8.5 x 3.1 x 3 x 1 cm. ? Tissue Description: Segment of small amanda l with an intact 2.5 x 2.3 cm ? stoma. ??At examination, the stoma is intact wi thout lesions grossly. ? Sections of the underlying segment of small bow el are folded benton-pink ? without lesions. ? Sections/Processing: Dietetic Intern secti ons are submitted. (R2) ??pps ? ---Clinical Information--- ? Specimen Submitted: ? A - Terminal ileum ? Clinical History: ? Ileostomy ? Clinical Diagnosis: ? Ileostomy Specimen (Source) Anatomical Collection Method Collection Time Re ceived Time Location / / Volume Laterality 07/20/2014 5:11 PM EST Deepthi Alexander MD PATHOLOGY/CYTOLOGY ORDERABLE S Performing Organization Address City/State/ZIP [place] [address] MICHELLE ESCALANTE Specimen to Pathology (surgical or derm) (07/20/2014 5:11 PM EST) Specimen Anatomical Collection Method Collection Time Receive d Time (Source) Location / / Volume Laterality AP Specimen 07/20/2014 5:11 PM 4 5:11 EST PM EST Narrative MICHELLE ESCALANTE - 07/20/2014 5:[address] Specimen requisition ordered. ??Separate Pathology report to follow Deepthi Alexander MD PATHOLOGY/CYTOLOGY ORDERABLE S Performing Organization Address City/State/ZIP Code [place] [address] [facility] documented in this encounter Visit Diagnoses Not on filedocumented in this encounter Active and Recently Administered Medications Times are shown in EST. Scheduled Medication Order 07/27/2014 07/28/2014 07/29/2014 acetaminophen (OFIRMEV) injection 1,000 mg (COMPLETED) 2039 (Given - Provider: Padmini Valdez RN) 1,000 mg, Intravenous, at 400 mL/hr, ONC E, 1 dose, 07/27/14 at 2100, Maximum dose of acetaminophen is 4000 mg from all sources in 24 hours., STAT esomeprazole (NexIUM) capsule 40 mg (CANCELED) 0912 (Given - Provider: Lilliam Barfield, MICHELLE) 0911 (Given - Provider: Slime Madrigal RN) 40 mg, Oral, DAILY, First dose on Sat at 0900, Until Discontinued, Routine esomeprazole (NexIUM) injection 40 mg (CANCELED) 0829 (Given - Provider: Damaris Bender, MICHELLE) 40 mg, Intravenous, DAILY, First dose on Sat07/24/14 at 1145, Until Discontinued, Routine heparin (porcine) subcutaneous injection 5,000 Units ( CANCELED) 0640 (Given - Provider: Josué Eng RN)1314 (Given - Provider: Damaris Bender, MICHELLE)2053 (Given - Provider: Padmini Valdez RN)2200 (Not Given - Provider: Padmini Valdez RN - Reason: See comment - Comment: given earlier per pt request) 0600 (Not Given - Provider: Padmini stiles RN - Reason: Patient/family refused)1400 (Not Given - Provider: Lilliam Barfield RN - Reason: Patient/family refused)2045 (Given - Provider: Padmini Valdez, MICHELLE) 0631 (Given - Provider: Padmini Valdez, MICHELLE)1341 (Not Given - Provider: Slime Madrigal RN - Reason: Patient/family refused) 5,000 Units, Subcutaneous, EVERY 8 HOURS SCHEDULED, First dose on Sat07/24/14 at 1400, Until Discontinued, Routine lactobacillus (BACID) tablet 1 tablet (CANCELED) 2042 (Given - Provider: Padmini Valdez, MICHELLE) 0911 (Given - Provider: Slime Madrigal, MICHELLE) 1 tablet, Oral, DAILY, First dose on Sat07/28/14 at 2000, Until Discontinued, Routine methylPREDNISolone sodium succinate (PF) (solu-MEDROL) 40 mg/mL injection 4 mg (CANCELED) 0830 (Given - Provider: Damaris Bender, MICHELLE) 05 26 (Given - Provider: Lilliam Barfield, MICHELLE) 0911 (Given - Provider: Slime Madrigal, MICHELLE) 4 mg, Intravenous, DAILY, First dose on Sat07/24/14 at 1130, Until Discontinued, Routine metoclopramide (REGLAN) tablet 10 mg (CANCELED) 1140 (Given - Provider: Lilliam Barfield, MICHELLE) 10 mg, Oral, 4 TIMES DAILY BEFORE MEALS & NIGHTLY, First dose on Sat07/28/14 at 1130, Until Discontinued, Routine sertraline (ZOLOFT) tablet 50 mg (CANCELED) 0828 (Give n - Provider: Damaris Bender RN) 09 (Given - Provider: Lilliam Barfield, MICHELLE) 0911 (Give n - Provider: Slime Madrigal, MICHELLE) 50 mg, Oral, DAILY, First dose on Sat at 0900, Until Discontinued, Routine sodium chloride 0.9 % flush 5 mL (CANCELED) 0830 (Give n - Provider: Damaris Bender RN)2034 (Given - Provider: Padmini Valdez, MICHELLE) 920 (Given - Provider: Lilliam Barfield, MICHELLE)2010 (Given - Provider: Padmini Valdez, MICHELLE) 09 (Given - Provider: Slime Madrigal, MICHELLE) 5 mL, Intravenous, 2 TIMES DAILY, First dose on Sat07/20/14 at 2215, Until Discontinued, Recovery (Recovery-Hospital Unit), Routine PRN Medication Order 07/27/2014 07/28/2014 07/29/2014 acetaminophen (OFIRMEV) injection 1,000 mg (CANCELED) 0505 (Given - Provider: Josué Eng RN)1113 (Given - Provider: Damaris Bender, MICHELLE) 1,000 mg, Intravenous, at 400 mL/hr, QUAN RY 6 HOURS PRN, 4 doses, Starting 07/26/14 at 1041, Until Sat07/27/14 at 1308, pain, Maximum dose of acetaminophen is 4000 mg from all sources in 24 hours., Routine acetaminophen (TYLENOL) tablet 1,000 mg (CANCELED) 0917 (Given - Provider: Lilliam Barfield RN)1801 (Given - Provider: Lilliam Barfield RN) 1,000 mg, Oral, EVERY 6 HOURS PRN, Start ing Sat07/27/14 at 1306, Until Aditi 07/29/14 at 1734, Pain, Maximum dose of acetaminophen is 4000 mg from all sources in 24 hours., Routine HYDROmorphone (DILAUDID) tablet 2 mg 0945 (See Alterna tive - Provider: Damaris Bender RN)1422 (See Alternative - Provider: Damaris Bender, MICHELLE)1804 (See Alternative - Provider: Damaris Bender, MICHELLE) 0913 (See Alternative - Provider: Lilliam Barfield RN)1611 (See Alternative - Provider: Lilliam Barfield RN)2028 (See Alternative - Provider: Padmini Valdez, MICHELLE) 0439 (See Alternative - Provider: Padmini Valdez, MICHELLE)0922 (See Alternative - Provider: Slime Madrigal RN)1342 (See Alternative - Provider: Slime Madrigal RN) 2 mg, Oral, EVERY 4 HOURS PRN, Starting Sat07/27/14 at 0737, Until Aditi 07/29/14 at 1734, Pain, for mild pain, May give an additional 2 mg one time if pain not relieved in 30-60 minutes., Routine HYDROmorphone (DILAUDID) tablet 4 mg (CANCELED) 0945 ( Given - Provider: Damaris Bender RN)1422 (Given - Provider: Damaris Bender RN)1804 (Given - Provider: Damaris Bender RN) 0913 (Given - Provider: Lilliam Barfield RN)1611 (Given - Provider: Lilliam Barfield RN)2027 (See Alternative - Provider: Padmini Valdez RN) 0439 (See Alternative - Provider: Padmini Valdez RN)0922 (Given - Provider: Slime Madrigal, MICHELLE)1342 (See Alternative - Provider: Slime Madrigal, MICHELLE) 4 mg, Oral, EVERY 4 HOURS PRN, Starting Sat07/27/14 at 0737, Until Sat07/29/14 at 1734, Pain, for moderate pain, May give an additional 2 mg one time if pain not relieved in 30-60 minutes., Routine HYDROmorphone (DILAUDID) tablet 6 mg (CANCELED) 0945 ( See Alternative - Provider: Damaris Bender RN)1422 (See Alternative - Provider: Damaris Bender RN)1804 (See Alternative - Provider: Damaris Bender RN) 0913 (See Alternative - Provider: Lilliam Barfield RN)1611 (See Alternative - Provider: Lilliam Barfield RN)2027 (Given - Provider: Padmini Valdez RN) 0439 (Given - Provider: Padmini Valdez RN)0922 (See Alternative - Provider: Slime Madrigal, MICHELLE)1342 (Given - Provider: Slime Madrigal, MICHELLE) 6 mg, Oral, EVERY 4 HOURS PRN, Pain, for severe pain, Starting Sat07/27/14 at 0737, May give an additional 2 mg one time if pain not relieved in 30-60 minutes. LORazepam (ATIVAN) injection 0.5 mg (CANCELED) 0505 (S ee Alternative - Provider: Josué Eng RN)2049 (Given - Provider: Padmini Valdez, MICHELLE) 0916 (See Alternative - Provider: Lilliam Barfield RN)2027 (See Alternative - Provider: Padmini Valdez, MICHELLE) 0922 (See Alternative - Provider: Slime Madrigal, MICHELLE) 0.5 mg, Intravenous, EVERY 6 HOURS PRN, Starting Sat07/26/14 at 1125, Until Sat07/29/14 at 1734, Anxiety, Routine LORazepam (ATIVAN) tablet 0.5 mg (CANCELED) 0505 (Give n - Provider: Josué Eng RN)2049 (See Alternative - Provider: Padmini Valdez, RN) 0916 (Given - Provider: Lilliam Barfield, RN)2027 (Given - Provider: Padmini Valdez, RN) 09 (Given - Provider: Slime Madrigal RN) 0.5 mg, Oral, EVERY 6 HOURS PRN, Startin g 07/26/14 at 1125, Until Aditi 07/29/14 at 1734, Anxiety, Routine ondansetron (ZOFRAN) injection 4 mg (CANCELED) 1314 (G iven - Provider: Damaris Bender, MICHELLE) 0613 (Given - Provider: Padmini Valdez, MICHELLE) 4 mg, Intravenous, EVERY 8 HOURS PRN, St arting 07/20/14 at 2151, Until Aditi 07/29/14 at 1734, Nausea, May repeat times one in 30 minutes if ineffective, Recovery (Recovery-Hospital Unit), Routine prochlorperazine (COMPAZINE) injection 5 mg (COMPLETED ) 0402 (Given - Provider: Josué Eng RN) 5 mg, Intravenous, EVERY 30 MIN PRN, 2 d oses, Starting 07/24/14 at 2137, Until Discontinued, Nausea, May repeat in 30 minutes if no relief from previous dose. HOLD if patient is sedated. Maximum dose is 40 mg in 24 hours., Routine prochlorperazine (COMPAZINE) tablet 10 mg (CANCELED) 1 805 (Given - Provider: Damaris Bender, MICHELLE) 10 mg, Oral, EVERY 6 HOURS PRN, Starting Sat07/23/14 at 1636, Until Sat07/28/14 at 0725, Nausea, Nausea/Vomiting, If unable to take PO, may give IV, Routine prochlorperazine (COMPAZINE) tablet 10 mg (CANCELED) 1333 (Given - Provider: Lilliam Barfield, RN)2007 (Given - Provider: Padmini Valdez, MICHELLE) 0439 (Given - Provider: Padmini Valdez, MICHELLE) 10 mg, Oral, EVERY 6 HOURS PRN, Starting 07/28/14 at 1308, Until Aditi 07/29/14 at 1734, Nausea, Nausea/Vomiting, If unable to take PO, may give IV, Routine documented in this encounter Care Teams Surgical Nurse Practitioner Relationship Specialty Start Date End Date Adrián Bautista MD PCP - General 12/04/13 10/30/[address] [place] [address] documented as of this encounter
--- OUTSIDE RECORDS SUMMARY | 2022-08-04 16:25 | XMS_ITS | Encounter Summary ---
:1975 Author Organization [facility] [place] [address] Care Team Providers Name Role Phone Adrián Reynolds MD Primary Care Provider [phone] Encounter Details Date Type Department Care Team Description 01/20/2015 Follow-Up Rheumatology at [facility] Katy Valerio [facility] Ag Reeder DO arthritis(714.0) [place] [address] [facility] [phone] RHEUMATOLOGY [place], [place] [address] Social History Tobacco Use Types Packs/Day Years Used Date Smoking Tobacco: Former Cigarettes Smokeless Tobacco: Never Comments: Quit in 2008 Alcohol Use Standard Drinks/Week Comments No 0 (1 standard drink = 0.6 oz pure alcoho l) Sex Assigned at Date Recorded Not on file documented as of this encounter Progress Notes Rebeca Valerio DO - 01/20/2015 1:46 PM EDT Outpatient Rheumatology Followup HPI: 37 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 The patient was diagnosed with seropositive RA in 2006 and was seen here once by Dr. Bello. Was following with a college or university department head at [facility]. Her RA control before was good on HCQ, MTX,and enbrel. She had very few flares on this combo. Prior xrays per patient showed no erosions. Unfortunately also got on this combination (her OCP was recalled b/c it was packaged improperly) and her prior college or university department head suggested aborting the . The patient opted not to do that and has been following her with COMPUTER ASSISTANT and her is advancing normally. She stopped [...] January 2012. Interim History: Last seen in October. Was inpatient at [facility] for 6 days for abdominal pain, diarrhea, couldn't eat or drink. Was treated with abx. CT was negative. She saw a GI and will have a colonoscopy on February 09. She is taking 6 mg of medrol, down from 12 mg. Every 2 weeks she is going downby 1/4 of a pill. She received rituxan x 2 end of November/beginning of December. This seems to be helping. She had a terrible reaction to solumedrol and describes what I think is psychosis. PMH: seropositive ra dX in 2006, PTSD, fibromyalgia, 3 c-sections, cholecystectomy, kidney stones, migraines, pneumatosis coli s/p right hemicolectomy. 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 Elbows and wrists nontender. B/l knees are tender. Assessment and Plan: 1. RF+, CCP+ RA 2. PTSD, depression and anxiety 3. 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 I do not know what her recent hospitalization was caused by. I will get the records from [facility]. Repeat rituxan at 6 month margot or we could repeat one dose at 4 months.she will let me know as we get closer. NO SOLUMEDROL with next infusion. Gets labs and records from [facility]. RT in 3 months. documented in this encounter Plan of Treatment Not on filedocumented as of this encounter Visit Diagnoses Diagnosis Rheumatoid arthritis(714.0) Rheumatoid arthritis documented in this encounter Care Teams Land Inspector Relationship Specialty Start Date End Date Adrián Reynolds MD PCP - General 12/04/13 10/30/[address] [place] [address] documented as of this encounter
--- OUTSIDE RECORDS SUMMARY | 2022-08-04 16:25 | XMS_ITS | Encounter Summary ---
:1975 Author Organization [facility] [place] [address] Care Team Providers Name Role Phone Adrián Reynolds MD Primary Care Provider [phone] Reason for Visit Reason Onset Date Comments Other 12/31/2014 Encounter Details Date Type Department Care Team Description 12/31/2014 Telephone [place] [facility] Deja Ibanez, [place] [address] Social History Tobacco Use Types Packs/Day Years Used Date Smoking Tobacco: Former Cigarettes Smokeless Tobacco: Never Comments: Quit in 2008 Alcohol Use Standard Drinks/Week Comments No 0 (1 standard drink = 0.6 oz pure alcoho l) Sex Assigned at Date Recorded Not on file documented as of this encounter Miscellaneous Notes Telephone Encounter - Deja Ibanez RN - 12/31/2014 2:22 PM EDT Monique calls for PCP recommendation in [place]. She states she was told but is not sure. She will call Dr. Loi Billy to schedule an appointment. documented in this encounter Plan of Treatment Not on filedocumented as of this encounter Visit Diagnoses Not on filedocumented in this encounter Care Teams Manager Business Planning Relationship Specialty Start Date End Date Adrián Reynolds MD PCP - General 12/04/13 10/30/[address] [place] [address] documented as of this encounter
--- OUTSIDE RECORDS SUMMARY | 2022-08-04 16:25 | XMS_ITS | Encounter Summary ---
:1975 Author Organization [facility] [place] [address] Care Team Providers Name Role Phone Adrián Bautista MD Primary Care Provider [phone] Encounter Details Date Type Department Care Team Description 07/20/2014 - Hospital Encounter 3 Deepthi Hoffman MD [facility] [place] [address] Pneumatosis coli 07/29/2014 [facility] Blas Gutierrez III, MD [facility] [place] [address] [place] [id number] Social History Tobacco Use Types Packs/Day Years [...] may be used if needed and are wihb-mik-ecwnkvl (OTC) medications available at most local pharmacies. [...] Alexander in the General Surgery Outpatient Clinic -Automotive Quality Engineer 4L the first week in August. You will recieve a letter in the mail and/or a phone call with information about this appointment. Please call [phone] (clinic number for appointments) to confirm date and time of your appointment, or if you do not receive information about your appointment in a timely manner. Your surgeon may not be Functional Skills Tutor, especially during the night or on weekends, [...] PM EST Patient discharged to home with VNA services. IV removed, site benign. My assessment [...] faxed, RN called report to VNA. Denny Tsang - 07/29/2014 2:53 PM EST Owner Professional Engineer Encounter Note Patient Name: Aaron Zamora : [id number] MR#: [id number] Admit Date: 07/20/2014 12:07 PM Hospital Day 9 days Narrative:Visited to introduce and assess acceptance of Owner Professional Engineer services. Pt was awake, alert, oriented and [...] and Outcome: Provided emotional support and encouraging presence.Owner Professional Engineer services accepted.Conversation to build trusting relationship.Provided prayer.Provided pastoral presence.Provided spiritual guidance. Pt expressed thankfulness for visit and asked to visit again. Follow-up: yes Time in Direct Care:30 Mins Dennyjimena Shook 07/29/2014 Janette Fernandez - 07/29/2014 1:26 [...] 24 Current Shift Last 3 Shifts 07/28 0701 - 07/29 0700 In: 1476 [P.O.:1320] Out: [...] Full Code Jocelyne Mejia MD PGY-1 Pager #[phone] Associated attestation - Deepthi Alexander MD - [...] morning, pt thinks may be related to BLEND PLANT OPERATOR, d/c'd BLEND PLANT OPERATOR S: feeling well, continues to pass flatus [...] Full Code Jocelyne Mejia MD PGY-1 Pager #[phone] Associated attestation - Deepthi Alexander MD - [...] of two midnights or is on the [facility] inpatient only procedure list (status C) due [...] 24 Current Shift Last 3 Shifts 07/26 0701 - 07/27 0700 In: 2938.7 [I.V.:2938.7] Out: 650 [Urine:650] UOP not recorded overnight 07/25 1901 - 07/27 0700 In: 4023.7 [I.V.:3993.7] Out: 1630 [Urine:1450] Physical [...] and appropriate Meds: Drips: ??? HYDROmorphone ??? BLEND PLANT OPERATOR bishop Scheduled: [START ON 07/28/2014] esomeprazole 40 [...] PRN nalOXone 0.2 mg Q1 Min PRN BLEND PLANT OPERATOR bishop Continuous PRN prochlorperazine 10 mg Q6H [...] bowel function returning, advancing diet. Plan: -Dilaudid BLEND PLANT OPERATOR, d/c when controlled on PO meds -PO [...] Full Code Jocelyne Mejia MD PGY-1 Pager #[phone] Associated attestation - Deepthi Alexander MD - [...] of two midnights or is on the [facility] inpatient only procedure list (status C) due [...] 24 Current Shift Last 3 Shifts 07/25 07 - 07/26 0700 In: 2584 [I.V.:2374] Out: 2480 [Urine:1200] NGT: 1300 07/26 0701 - 07/26 1900 In: - Out: 250 [...] Meds: Drips: ??? lactated ringers 100 mL/hr (07/25/142252) ??? HYDROmorphone ??? BLEND PLANT OPERATOR bishop Scheduled: heparin (porcine) 5,000 Units Subcutaneous Q8H WILFRIDO methylPREDNISolone 4 mg Intravenous Daily esomeprazole 40 mg Intravenous Daily sertraline 50 mg Oral Daily sodium chloride 0.9 % 5 mL Intravenous BID PRN: LORazepam 0.5 mg Q6H PRN diphenhydrAMINE 25 mg Q30 Min PRN prochlorperazine 5 mg Q30 Min PRN nalOXone 0.2 mg Q1 Min PRN BLEND PLANT OPERATOR bishop Continuous PRN prochlorperazine 10 mg Q6H [...] NGT/NPO for decompression and AROBF. Plan: -Dilaudid BLEND PLANT OPERATOR -mIVFs: LR@100 -diet: NPO diet (Give Meds), [...] Full Code Jocelyne Mejia MD PGY-1 Pager #[phone] Acute Care Surgery Attending Addendum: I have [...] C) due to: Post-op Ileus Rose Mary Tipton RN - 07/25/2014 10:49 PM EST I assumed care for pt from [id number]. I agree with previous nurses assessment. Pt remains in NAD, VSS, NG tube connected to cont wall suction, intermittently flushed. Pt's pain is being controlled withDilaudid BLEND PLANT OPERATOR. Pt up with 1x assist. Dressing remains c/d/i. Pt encouraged to call with any needs. Will continue to monitor. Deepthi Alexander MD - 07/25/2014 10:56 AM EST ACUTE CARE SURGERY SERVICE INPATIENT PROGRESS NOTE ID: Aaron Zamora ( ) is a 39 y.o. female admitted on 07/20/2014 s/p ileostomy takedown on 07/20/14. 24hr events: -vomiting and NGT replaced yesterday -ambulating daily S: feeling much better with NGT in place and dilaudid BLEND PLANT OPERATOR Vitals: Last value Range last 24 hrs [...] Last 3 Shifts 07/24 701 - 07/25 700 In: 2941 [P.O.:120; I.V.:2671] Out: 2200 [Urine:700] 07/25 701 - 07/25 1900 In: 30 Out: - 07/23 1901 - 07/25 07 In: 2941 [P.O.:120; I.V.:2671] Out: 2750 [Urine:700] [...] 100 mL/hr (07/25/14 0223) ??? HYDROmorphone ??? BLEND PLANT OPERATOR bishop Scheduled: heparin (porcine) 5,000 Units Subcutaneous Q8H WILFRIDO methylPREDNISolone 4 mg Intravenous Daily esomeprazole 40 mg Intravenous Daily sertraline 50 mg Oral Daily sodium chloride 0.9 % 5 mL Intravenous BID PRN: LORazepam 0.5 mg Q6H PRN acetaminophen 1,000 mg Q6H PRN diphenhydrAMINE 25 mg Q30 Min PRN prochlorperazine 5 mg Q30 Min PRN nalOXone 0.2 mg Q1 Min PRN BLEND PLANT OPERATOR bishop Continuous PRN prochlorperazine 10 mg Q6H [...] Full Code Jocelyne Mejia MD PGY-1 Pager #[phone] Acute Care Surgery Attending Addendum: I have seen this patient and agree with the above note with the following additions and/or modifications. Feeling better today. Pain control switched back to BLEND PLANT OPERATOR over night with better pain control and [...] of two midnights or is on the [facility] inpatient only procedure list (status C) due [...] call perry. RN will monitor patient. Deepthi Malagon MD - 07/24/2014 12:33 AM EST ACUTE [...] 24 Current Shift Last 3 Shifts 07/23 701 - 07/24 0700 In: 420 [P.O.:420] Out: [...] from surgery Code Status: Full Code LUIS GOMZE MD 07/24/2014 Acute Care Surgery Attending Addendum: [...] of two midnights or is on the [facility] inpatient only procedure list (status C) due [...] 2917 [P.O.:550; I.V.:2367] Out: 1450 [Urine:1450] 07/21 190 - 07/23 0700 In: 5088 [P.O.:590; I.V.:4498] [...] post-op, bowel function returning. Plan: -d/c dilaudid BLEND PLANT OPERATOR -PO dilaudid PRN -mIVFs: HLIV -diet: Regular [...] Full Code Jocelyne Mejia MD PGY-1 Pager #[phone] 07/23/2014 Angela Zhang RN - 07/22/2014 2:37 PM EST Paged resident, pt states she is feeling dizzy and a little nauseated and the pain is changing in her abdomen. Catherine Nixon RN - 07/22/2014 1:44 PM EST Chart reviewed 39 y.o. female admitted on 07/20/2014 s/p ileostomy takedown on 07/20/14. Met with patient today- up in chair- lead operator for pain control Patient lives with and 3 children in [facility]- has been followed by [facility]- patient requesting Referral to [facility] for RN, CURRICULUM AND INSTRUCTION DIRECTOR and homemaking Given her recent RA flares and difficulty with rx- she feels she needs more support @ home Advised that given RA dz- she should consider contacting Walter and be assigned a case mgr as heradvocate P- will contact RS with [...] Last 3 Shifts 07/21 701 - 07/22 700 In: 2291 [P.O.:160; I.V.:2131] Out: 1300 [Urine:1300] [...] well perfused. Meds: Drips: ??? HYDROmorphone ??? BLEND PLANT OPERATOR bishop ??? dextrose 5% and sodium chloride [...] PRN nalOXone 0.2 mg Q1 Min PRN BLEND PLANT OPERATOR bishop Continuous PRN flu vacc (5 yrs+) [...] 07/20/14, doing well post-op, AROBF. Plan: -dilaudid BLEND PLANT OPERATOR -PO dilaudid PRN -mIVFs: D5 1/2NS @ 75/hr -diet: NPO diet (Give Meds) -BID WTD changes of ileostomy packing -scheduled IV tylenol and ketorolac 15mg q8h -advance to clears when passing flatus -methylprednisolone 4mg qday -restarted home meds -may shower Saturday -ppx: nexium and SQH Dispo: -floor status -[ ] schedule follow-up with Dr. Alexander or Lori in 2 weeks Code Status: Full Code Jocelyne Mejia MD PGY-1 Pager #[phone] 07/22/2014 Juan Jose Mustafa RN - 07/22/2014 6:27 AM EST in to see---abd. Incision now DOMONIQUE--- Jocelyne Sanchez MD - 07/21/2014 12:55 PM [...] pain control with morphine, changed to dilaudid BLEND PLANT OPERATOR with significant improvement Subjective: Pt denies SOB, [...] 24 Current Shift Last 3 Shifts 07/20 0701 - 07/21 0700 In: 2305 [I.V.:2305] Out: 1500 [Urine:1400] NGT: 200 07/21 0701 - 07/21 190 In: - Out: 50 [Urine:50] 07/19 1901 [...] well perfused. Meds: Drips: ??? HYDROmorphone ??? BLEND PLANT OPERATOR bishop ??? dextrose 5% and sodium chloride [...] PRN nalOXone 0.2 mg Q1 Min PRN BLEND PLANT OPERATOR bishop Continuous PRN clonazePAM 1 mg BID [...] 07/20/14, doing well post-op, AROBF. Plan: -dilaudid BLEND PLANT OPERATOR -mIVFs: D5 1/2NS -diet: NPO diet (Give Meds) -BID WTD changes of ileostomy packing -scheduled IV tylenol and ketorolac 15mg q8h -advance to clears when passing flatus -methylprednisolone 4mg qday -restarted home meds -ppx: nexium and SQH Dispo: -floor status -[ ] schedule follow-up with Dr. Alexander Code Status: Full Code Jocelyne Mejia MD PGY-1 Pager #[phone] 07/21/2014 Associated attestation - Blas Gutierrez III, [...] of two midnights or is on the [facility] inpatient only procedure list (status C) due to: post-operative carethat cannot be delivered as an outpatient; examples: pain only controlled with IV pain medication; frequent or complex wound care/dressing changes; NPO requiring IV fluid support. Loli Sosa RN - 07/21/2014 5:11 AM EST 1mg dilaudid was effective in relieving patient pain, BLEND PLANT OPERATOR 4 hr dose limit modified. Resting in [...] operative plan per primary team - Morphine BLEND PLANT OPERATOR settings have been adjusted to 1mg/7 minute [...] intraop Ancef and Flagyl - Nexium, SQH Loli Sosa, RN - 07/20/2014 10:00 PM EST Patient arrived from PACU, Reported pained worsening in abdomen, lead operator in place, however patient had reached lock out of 10mg /4 hr limit. paged, IV tylenol ordered. Patient continues to complain of pain, MD paged several times throughout 2200 hour and informed of this. 1 mg IV morphine ordered and given at 2330. Patient complaining of pain continuously all through 2200/2300 hour. Dinkey Engine Operator in to see patient, continues to have pain, Dinkey Engine Operator reports continuous pain and that has not been relieved by 1 mgmorphine. 2336- Awaiting more Breakthrough pain medication and alteration of BLEND PLANT OPERATOR dose/MEdication. Afua Kimbrough RN - 07/20/2014 7:45 PM EST 184 - pt to pacu via bed. Monitor and o2 attached. Monitor alarms set per pacu protocols. Report received and care resumed. Pt arouses to verbal. kezia Hooks. Neuro intact. C/o pain in abd 9/10 - moansooow frequently. Iv meds begun. gd [...] yellow urine. 2 bags belongings at bedside. lead operator hung and pt using well. 1999 - [...] [facility] documented in this [...] but methotrexate and humira were held. Aaron Zamoar was tolerating regular diet, ambulating and voiding [...] I/Os: I/O last 3 completed shifts: In: 1955 [P.O.:1800; IV Piggyback:156] Out: - Physical Exam: [...] VNA SERVICES AND/OR HOSPICE SERVICES) PATIENT'S LOCATION: [facility] Zamora [address] [place] [phone] (home) Cell: No relevant phone numbers on file. Line Inspector's Name: self In discussion with the attending physician, it is certified that this patient is under their care and that they, or a Nurse Practitioner,Clinical Nurse specialist or Physician Surgical Resident who is working directly with them, had [...] re health issues- assess for homemaking services CURRICULUM AND INSTRUCTION DIRECTOR: assist with personal care- light meal prep HOME HEALTH CARE AGENCY: [facility] PHONE: [phone] FAX: [phone] Start of care: 24 hrs after discharge Please note that any additional orders needs or changes will need to be obtained from this patient'sPCP: ADRIÁN BAUTISTA MD [address] [facility] [place] [place] [address] All A agencies which cover the area of patient's residence have been reviewed, either verbally or in writing, and patient/family have chosen the home health care agency noted Question Response Notes Agency name and contact information [facility] Patient location post discharge home [...] may be used if needed and are smya-wmg-jqsxtog (OTC) medications available at most local pharmacies. Prunes or prune juice, taken daily, can also be helpful for constipation treatment or pr evention and are available at most [facility]. Driving Restrictions: - No driving if you [...] Alexander in the General Surgery Outpatient Clinic -Automotive Quality Engineer 4L the first week in August. You will recieve a letter in the mail and/or a phone call with information about this appointment. Please call [phone] (clinic number for appointments) to confirm date and time of your appointment, or if you do not receive information about your appointment in a timely manner. Your surgeon may not be Functional Skills Tutor, especially during the night or on weekends, [...] independent Supervision: when out of room Surveillance: Masimo, hourly rounding CPG OUTCOME EVALUATION: Goal: Fall [...] Level Patient will demonstrate the desired outcomes. 07/29/14 0349 Pain, Acute (Adult, Obstetrics) Acceptable Pain Control/Comfort [...] with patient OUTCOME EVALUATION NOTE: OUTCOME SUMMARY: BLEND PLANT OPERATOR discontinued this morning. Pt tolerating oral pain [...] independent Supervision: no assistance with ADLs Surveillance: Masimo, hourly rounding CPG GOAL OUTCOME EVALUATION: Goal: Individualization and Mutuality 07/28/14 1318 Individualization Patient Specific Goals pain control; nausea control Goal: Fall Prevention-Safe Patient Handling 07/28/14 0912 Safety Interventions Safety Precautions/Fall Reduction assistive device;fall reduction program maintained;environmental modification;nonskid shoes/slippers when out of bed Goal: Discharge Needs Assessment 07/28/14 1318 Discharge Needs Assessment Equipment Needed After Discharge [...] OUTCOME SUMMARY: Trying to move away from BLEND PLANT OPERATOR towards PO pain control complicated by nausea when swallowing pills. Patient preferring to use BLEND PLANT OPERATOR at this time despite reminding of above plan to transition. PLAN MOVING FORWARD: Discuss ways to help pt take pills (ex. Crushed in applesauce) to help with moving away from BLEND PLANT OPERATOR INDIVIDUALIZED FALL PREVENTION: Assistance: Standby assist Supervision: with toileting, walking long distances Surveillance: Masimo, hourly rounding CPG OUTCOME EVALUATION: Goal: Fall [...] of Human Response Clinical Practice Guideline (CPG) 07/28/14 0440 Pain, Acute Related Risk Factors (Acute Pain) [...] of Care Goal: Plan of Care Review 07/27/14 1198 Plan of Care Review Plan of Care Outcome Status ongoing (interventions implemented as appropriate) Progress improving Coping/Psychosocial Response Interventions Plan of Care Reviewed with patient OUTCOME EVALUATION NOTE: OUTCOME SUMMARY: PT taking oral PRN pain medications (see MAR) and trying to use less of BLEND PLANT OPERATOR. Intermittent nausea throughout day and dry heaving. Medications given to help with nausea (see MAR). Pt tolerating regular diet fairly well. Eating slowly and light foods helps to avoid nausea. PLAN MOVING FORWARD: Pain control, nausea control, ambulation INDIVIDUALIZED FALL PREVENTION: Assistance: Independent Supervision: Independent Surveillance: Hourly rounding, robert CPG GOAL OUTCOME EVALUATION: Goal: Individualization and Mutuality 07/27/14 183 Individualization Individualize the Plan of Care: Maintain [...] needs identified Concerns Comments home health through [facility] and working on -- Readmission Within [...] BM's this afternoon. Pain controled well with BLEND PLANT OPERATOR. Wet to dry dressing change done at [...] Strengthening activity/mobility promoted Goal: Discharge Needs Assessment 07/26/141819 Discharge Needs Assessment Concerns to be Addressed [...] Ongoing (Interventions Implemented as Appropriate) 07/25/14 0400 07/25/147 Individualization Individualize the Plan of Care: -- [...] Ongoing (Interventions Implemented as Appropriate) 07/23/14 1012 07/25/14 141 Discharge Needs Assessment Concerns to be Addressed -- no discharge needs identified Concerns Comments home health through [facility] and working on -- Readmission Within [...] Outcome: Ongoing (Interventions Implemented as Appropriate) 07/25/14 141 Pain, Acute Related Risk Factors (Acute Pain) anxiety;initially high pain levels;surgery Signs and Symptoms (Acute Pain) constipation/diarrhea;facial mask of pain/grimace;fatigue/weakness;guarding/abnormal posturing/positioning;nausea/vomiting/anorexia;verbalization of pain descriptors Goal: Acceptable Pain Control/Comfort Level Patient will demonstrate the desired outcomes. Outcome: Ongoing (Interventions Implemented as Appropriate) 07/25/14 1417 Pain, Acute (Adult, Obstetrics) Acceptable [...] Patient states pain is well managed with BLEND PLANT OPERATOR, anxious about how long providers with let [...] GOAL OUTCOME EVALUATION: Goal: Individualization and Mutuality 07/25/141416 Individualization Individualize the Plan of Care: Maintaine [...] discussed. Patient was started on a Dilaudid BLEND PLANT OPERATOR at 0.2-10-4. Overall patient's pain is well controlled, decreasing from 7-8/10 to 3/10. Patient has actually used less pain medication with the BLEND PLANT OPERATOR, and has not approached her 4 hour [...] is able to tolerate orals, transition off BLEND PLANT OPERATOR to PO medication. Continue to monitor NGT for patency. INDIVIDUALIZED FALL PREVENTION: Assistance: Patient is standby assist as she requires help with IV pole and NGT. Supervision: Assisting with medical equipment when patient mobilizes. Surveillance: Roderickimo, Purposeful Hourly Rounding CPG GOAL OUTCOME EVALUATION: Goal: Individualization and Mutuality 07/25/14 0400 Individualization Individualize the Plan of Care: Maintain adequate pain control, monitor and treat s/s of nausea Patient Specific Goals pain control and treatment for nausea and anxiety as needed Patient Specific Interventions Patient started on BLEND PLANT OPERATOR for better pain management Mutuality/Individual Preferences What [...] Ying Fall Risk -- -- -- 07/24/14 2332 Safety Interventions Safety Precautions/Fall Reduction environmental modification;fall [...] Care Goal: Plan of Care Review 07/23/14 1012 Plan of Care Review Plan of Care Outcome Status ongoing (interventions implemented as appropriate) Progress improving Coping/Psychosocial Response Interventions Plan of Care Reviewed with patient Airline Hostess assumed care of pt at 0700. A&OX3. [...] Goal: Individualization and Mutuality 07/21/14 1200 07/23/14 1012 Individualization Patient Specific Goals -- pain control Mutuality/Individual Preferences What anxieties, fears or concerns do you have about your health or care? getting sicker -- Goal: Fall Prevention-Safe Patient Handling 07/23/14 1012 Safety Interventions Safety Precautions/Fall Reduction commode/urinal/bedpan at bedside Goal: Discharge Needs Assessment Outcome: Ongoing (Interventions Implemented as Appropriate) 07/22/14 0129 07/23/14 1012 Discharge Needs Assessment Concerns to be Addressed -- adjustment to diagnosis/illness concerns Concerns Comments -- home health through [facility] aware and working on Readmission Within the Last [...] Appropriate) 07/23/14 1012 Activity Intolerance (Adult, Obstetrics) Activity Tolerance making progress toward outcome Goal: Effective Energy Conservation Techniques Patient will demonstrate the desired outcomes. Outcome: Ongoing (Interventions Implemented as Appropriate) 07/23/14 1012 Activity Intolerance (Adult, Obstetrics) Effective Energy Conservation Techniques making progress toward outcome Plan of Care - Loli Sosa RN - 07/23/2014 6:43 AM EST [...] Ongoing (Interventions Implemented as Appropriate) 07/22/14 1654 Activity Intolerance (Adult, Obstetrics) Effective Energy Conservation [...] Reviewed with patient Plan of Care - Juan Jose Vidal [...] admission in last 30 days Plan of Care - Juan Jose Vidal [...] and Symptoms (Acute Pain) moaning Plan of Care - Juan Jose Vidal [...] Outcome: Ongoing (Interventions Implemented as Appropriate) Comments: Airline Hostess assumed care of pt at 0700. A&OX3. VSS on RA. Pt calm and cooperative in care. Plan of care reviewed with pt. Plan for pain control reviewed with pt and pt receiving good pain relief with BLEND PLANT OPERATOR. NG tube removed in AM by team. Pt tolerating ice chips and hard candy per diet order. Lim removed in am and voiding and PVRs documented in interactive view. Pt able to make needs known, call light within reach. Please see MAR and interactive view for additional information. Op Note - Deepthi Alexander MD - 07/21/2014 11:33 AM EST [facility] Operative Note Patient Name: Aaron Zamora : [id number] MR#: [id number] Case Date: 07/20/2014 Surgeon: Surgeon(s) and Role: [...] transverse colon and the TI in a jqbl-hw-fdhy fashion. A 75 blue load endo AMANDA [...] taken to PACU in stable condition. Dr. Benjamin waspresent and scrubbed for the entire case. Plan of Care - Loli Sosa RN - 07/20/2014 10:14 PM EST Problem: General Plan of Care Goal: Plan of Care Review Outcome: Ongoing (Interventions Implemented as Appropriate) 07/20/14 2212 Plan of Care Review Plan of Care Outcome Status ongoing (interventions implemented as appropriate) Progress no change Coping/Psychosocial Response Interventions Plan of Care Reviewed with patient Attempting to maintain patient comfort as she recovers from Ileostomy reversal surgery. BLEND PLANT OPERATOR in placeand patient aware of how to use and is doing so appropriately. Brief Op Note - Deepthi Alexander MD - 07/20/2014 6:50 PM EST Brief Operative Note Patient Name: Aaron Zamora : [id number] MR#: [id number] Case Date: 07/20/2014 Surgeon: Surgeon(s) and Role: [...] Metabolic Panel (non-fasting) (07/29/2014 4:29 AM EST) P athologist Signature Glucose Lvl 87 60 - 199 CERNER mg/dL MILLENNIUM Comment: Diabetes: >=200 mg/dL plus symp toms BUN 8 8 - 18 mg/dL CERNER MILLENNIUM Creatinine 0.60 (L) 0.70 - 1.20 mg/dL CERNER MILL ENNIUM Comment: Please note that the pediatric reference intervals supplied above were not validated at [facility]. Results from pediatri c patients should be [...] the following links into your internet browser. [email or web address] Specimen Anatomical Collection Method Collection Time Receive d Time (Source) Location / / Volume Laterality Blood specimen 07/29/2014 4:29 AM 014 5:11 (specimen) EST AM EST Resulting Agency Comment Spec In Lab Deepthi Alexander MD CHEMISTRY ORDERABLES Performing Organization Address City/State/[place] [address] CERNER MILLENNIUM C. Difficile Screen (07/28/2014 11:55 PM EST) Analysis Performed At Patho logist Time Signature C Diff Screen Negative Negative CERNER MILLENNIUM Specimen Anatomical Collection Method Collection Time Receive d Time (Source) Location / / Volume Laterality Stool specimen 07/28/2014 11:55 4 7:21 (specimen) PM EST AM EST Resulting Agency Comment Spec In Lab Deepthi Alexander MD MICROBIOLOGY - GENERAL ORDER ANGELES Performing Organization Address City/State/[place] [address] CERNER MILLENNIUM (ABNORMAL) Basic [...] intervals supplied above were not validated at [facility]. Results from pediatri c patients should be [...] the following links into your internet browser. [email or web address] [email or web address] Specimen Anatomical Collection Method Collection Time Receive d Time (Source) Location / / Volume Laterality Blood specimen 07/28/2014 3:35 AM 014 4:01 (specimen) EST AM EST Resulting Agency Comment Spec In Lab Deepthi Alexander MD CHEMISTRY ORDERABLES Performing Organization Address City/State/[place] [address] CERNER MILLENNIUM (ABNORMAL) Differential, [...] Alexander MD HEMATOLOGY ORDERABLES Performing Organization Address City/[facility]/[place] [address] CERNER MILLENNIUM (ABNORMAL) Hemogram (07/27/2014 4:30 AM EST) P athologist Signature WBC 6.8 [...] City/State/ZIP Code Phon e Number [place] [address] CERNER MILLENNIUM (ABNORMAL) Basic Metabolic Panel (non-fasting) (07/27/2014 4:30 AM EST) P athologist Signature Glucose Lvl 86 60 - 199 CERNER mg/dL MILLENNIUM Comment: Diabetes: >=200 mg/dL plus symp toms BUN 8 8 - 18 mg/dL CERNER MILLENNIUM Creatinine 0.58 (L) 0.70 - 1.20 mg/dL CERNER MILL ENNIUM Comment: Please note that the pediatric reference intervals supplied above were not validated at [facility]. Results from pediatri c patients should be [...] the following links into your internet browser. [email or web address] [email or web address]://[employer]/[facility]kf Specimen Anatomical Collection Method Collection Time Receive d Time (Source) Location / / Volume Laterality Blood specimen 07/27/2014 4:30 AM 014 4:48 (specimen) EST AM EST Resulting Agency Comment Spec In Lab Deepthi Alexander MD CHEMISTRY ORDERABLES Performing Organization Address City/State/[place] [address] CERNER MILLENNIUM (ABNORMAL) Differential, [...] Organization Address City/State/[place] [address] CERNER MILLENNIUM (ABNORMAL) Hemogram [...] Organization Address City/State/[place] [address] CERNER MILLENNIUM (ABNORMAL) Basic [...] intervals supplied above were not validated at [facility]. Results from pediatri c patients should be [...] IUM CO2 26 22 - 31 mmol/L CERERIN MILLENNI UM Anion Gap 14 5 - 15 mmol/L CERNER MILLENNIU M Calcium 8.7 8.5 - 10.5 mg/dL MICHELLE ARIS NIUM Estimated GFR >60 >=60 CERNER [...] the following links into your internet browser. [email or web address] [email or web address] Specimen Anatomical Collection Method Collection Time Receive d Time (Source) Location / / Volume Laterality Blood specimen 07/26/2014 6:00 AM 014 6:57 (specimen) EST AM EST Resulting Agency Comment Spec In Lab Deepthi Alexander MD CHEMISTRY ORDERABLES Performing Organization Address City/State/[place] [address] CERERIN MILLENNIUM XR abdomen acute series with PA chest [...] bowel gas in the colon. Impression Blas Gutierrez III, MD IMG DX ORDERABLES (ABNORMAL) Differential, Automated (07/25/2014 4:53 AM EST) P athologist Signature Neutrophils % 63.6 % CERNER [...] Alexander MD HEMATOLOGY ORDERABLES Performing Organization Address City/[facility]/[place] [address] CERNER MILLENNIUM (ABNORMAL) Hemogram [...] Alexander MD HEMATOLOGY ORDERABLES Performing Organization Address City/[facility]/[place] [address] CERNER MILLENNIUM (ABNORMAL) Basic [...] intervals supplied above were not validated at [facility]. Results from pediatri c patients should be [...] the following links into your internet browser. [email or web address] [email or web address] Specimen Anatomical Collection Method Collection Time Receive d Time (Source) Location / / Volume Laterality Blood specimen 07/25/2014 4:53 AM 014 4:58 (specimen) EST AM EST Resulting Agency Comment Spec In Lab Deepthi Alexander MD CHEMISTRY ORDERABLES Performing Organization Address City/State/ZIP Code Phon e Number [place] [id number] CERNER MILLENNIUM XR abdomen [...] (ABNORMAL) Differential, Automated (07/24/2014 4:50 AM EST) [facility] Method Time Signature Neutrophils % 79.0 % [...] Alexander MD HEMATOLOGY ORDERABLES Performing Organization Address City/[facility]/[place] [address] CERNER MILLENNIUM (ABNORMAL) Hemogram [...] Alexander MD HEMATOLOGY ORDERABLES Performing Organization Address City/[facility]/[place] [address] [facility] MILL[facility] (ABNORMAL) Basic Metabolic Panel (non-fasting) (07/24/2014 [...] intervals supplied above were not validated at [facility]. Results from pediatri c patients should be [...] the following links into your internet browser. http://[email or web address] [email or web address] Specimen Anatomical Collection Method Collection Time Receive d Time (Source) Location / / Volume Laterality Blood specimen 07/24/2014 4:50 AM 014 5:21 (specimen) EST AM EST Resulting Agency Comment Spec In Lab Deepthi Alexander MD CHEMISTRY ORDERABLES Performing Organization Address City/State/[place] [address] CERNER MILLENNIUM Differential, Automated [...] Organization Address City/State/[place] [address] CERNER MILLENNIUM (ABNORMAL) Hemogram [...] Organization Address City/State/[place] [address] CERNER MILLENNIUM (ABNORMAL) Basic [...] intervals supplied above were not validated at [facility]. Results from pediatri c patients should be [...] the following links into your internet browser. http://[email or web address] [email or web address]/DHMCnkf Specimen Anatomical Collection Method Collection Time Receive d Time (Source) Location / / Volume Laterality Blood specimen 07/23/2014 4:41 AM 014 5:12 (specimen) EST AM EST Resulting Agency Comment Spec In Lab Deepthi Alexander MD CHEMISTRY ORDERABLES Performing Organization Address City/State/[place] [address] CERNER MILLENNIUM (ABNORMAL) Differential, Automated (07/22/2014 5:16 AM EST) [facility] Method Time Signature Neutrophils % 70.9 % [...] Organization Address City/State/[place] [address] CERNER MILLENNIUM (ABNORMAL) Hemogram [...] Organization Address City/State/[place] [address] CERNER MILLENNIUM (ABNORMAL) Basic [...] intervals supplied above were not validated at [facility]. Results from pediatri c patients should be [...] the following links into your internet browser. http://[employer]/DHnkdep [email or web address]://[employer]/DHMCnkf Specimen Anatomical Collection Method Collection Time Receive d Time (Source) Location / / Volume Laterality Blood specimen 07/22/2014 5:16 AM 014 5:31 (specimen) EST AM EST Resulting Agency Comment Spec In Lab Deepthi Alexander MD CHEMISTRY ORDERABLES Performing Organization Address City/State/ZIP Code Phon e Number [place] [phone] CERNER MILLENNIUM (ABNORMAL) Differential, Automated (07/21/2014 4:38 AM EST) [facility] Method Time Signature Neutrophils % 87.5 % [...] Alexander MD HEMATOLOGY ORDERABLES Performing Organization Address City/[facility]/[place] [address] CERNER MILLENNIUM (ABNORMAL) Hemogram (07/21/2014 4:38 AM EST) P athologist Signature WBC 17.3 (H) 4.0 - [...] Organization Address City/State/[place] [address] CERNER MILLENNIUM Basic Metabolic Panel (non-fasting) (07/21/2014 4:38 AM EST) P athologist Signature Glucose Lvl 134 60 - 199 CERNER mg/dL MILLENNIUM Comment: Diabetes: >=200 mg/dL plus symp toms BUN 8 8 - 18 mg/dL CERNER MILLENNIUM Creatinine 0.79 0.70 - 1.20 mg/dL CERNER MILL ENNIUM Comment: Please note that the pediatric reference intervals supplied above were not validated at [facility]. Results from pediatri c patients should be [...] the following links into your internet browser. [email or web address]://[email or web address] [email or web address] Specimen Anatomical Collection Method Collection Time Receive d Time (Source) Location / / Volume Laterality Blood specimen 07/21/2014 4:38 AM 014 4:46 (specimen) EST AM EST Resulting Agency Comment Spec In Lab Deepthi Alexander MD CHEMISTRY ORDERABLES Performing Organization Address City/State/[place] [address] CERNER MILLENNIUM XR abdomen [...] for foreign object RETAINED OBJECT PROTOCOL---OR20 CALL [id number] WITH RESULT Comparison None Technique Findings NG [...] for foreign object RETAINED OBJECT PROTOCOL---OR20 CALL [id number] WITH RESULT Comparison None Technique Findings NG [...] Component Value Ref Test Analysis Performed At [facility] Method Time Signature Surgical CERNER Pathology ? [facility] Report ? Provider: ?? DEEPTHI ALEXANDER ?Pt. Name: ?? AARON BARTON ? Acc #: ?[id number] ?Pt. MRN: ?[id number] ? Col Date: ?? 07/20/20 14 ?/Sex: [...] folded benton-pink ? without lesions. ? Sections/Processing: [employer] secti ons are submitted. (R2) ??pps ? ---Clinical Information--- ? Specimen Submitted: ? A - Terminal ileum ? Clinical History: ? Ileostomy ? Clinical Diagnosis: ? Ileostomy Specimen (Source) Anatomical Collection Method Collection Time Re ceived Time Location / / Volume Laterality 07/20/2014 5:11 PM EST Deepthi Alexander MD PATHOLOGY/CYTOLOGY ORDERABLE S Performing Organization Address City/State/[place] [address] [facility] Specimen to Pathology (surgical or derm) (07/20/2014 [...] Organization Address City/State/[place] [address] MICHELLE ESCALANTE documented in this encounter Visit Diagnoses Diagnosis Pneumatosis coli Other specified disorder of intestines documented in this encounter Administered Medications Inactive Administered Medications - up to 3 most recent administrations Medication Order MAR Action Action Date Dose Rate Site acetaminophen (OFIRMEV) Given 07/20/2014 10:52 PM 1,000 mg 400 mL/hr injection 1,000 mg EST 1,000 mg, Intravenous, at 400 mL/hr, ONCE, 1 dose, On Sat07/20/14 at 2300, Maximum dose of acetaminophen is 4000 mg from all sources in 24 hours., Routine, Is the indication for perioperative pain? Yes, Are alternative routes (po or pr) not appropriate in this patient? Yes acetaminophen (OFIRMEV) injection Given 07/23/2014 5:[address] 1,000 mg 400 mL/hr 1,000 mg 1,000 mg, Intravenous, at 400 mL/hr, EVERY 6 HOURS SCHEDULED, First dose (after last reorder) on Sat07/21/14 at 0015, Until Discontinued, Maximum dose of acetaminophen is 4000 mg from all sources in 24 hours., Routine, Is the indication for perioperative pain? Yes, Are alternative routes (po or pr) not appropriate in this patient? Yes Given 07/22/2014 10:32 PM EST 1,000 mg 400 mL/hr Given 07/22/2014 5:08 PM EST 1,000 mg 400 mL/hr acetaminophen (OFIRMEV) injection Given 07/25/2014 8:[address] 1,000 mg 400 mL/hr 1,000 mg 1,000 mg, Intravenous, at 400 mL/hr, EVERY 6 HOURS PRN, 4 doses, Starting on 07/24/14 at 1656, Until 07/25/14 at 2109, pain, Maximum dose of acetaminophen is 4000 mg from all sources in 24 hours., Routine, Is the indication for perioperative pain? Yes, Are alternative routes (po or pr) not appropriate in this patient? Yes Given 07/25/2014 2:54 PM EST 1,000 mg 400 mL/hr Given 07/25/2014 6:11 AM EST 1,000 mg 400 mL/hr acetaminophen (OFIRMEV) injection Given 07/27/2014 11:13 AM EST 1,000 mg 400 mL/hr 1,000 mg 1,000 mg, Intravenous, at 400 mL/hr, EVERY 6 HOURS PRN, 4 doses, Starting on Sat07/26/14 at 1041, Until Sat07/27/14 at 1308, pain, Maximum dose of acetaminophen is 4000 mg from all sources in 24 hours., Routine, Is the indication for perioperative pain? Yes, Are alternative routes (po or pr) not appropriate in this patient? Yes Given 07/27/2014 5:05 AM EST 1,000 mg 400 mL/hr Given 07/26/2014 9:28 PM EST 1,000 mg 400 mL/hr acetaminophen (OFIRMEV) injection Given 07/27/2014 8:[address] 1,000 mg 400 mL/hr 1,000 mg 1,000 mg, Intravenous, at 400 mL/hr, ONCE, 1 dose, On Sat07/27/14 at 2100, Maximum dose of acetaminophen is 4000 mg from all sources in 24 hours., STAT, Is the indication for perioperative pain? Yes, Are alternative routes (po or pr) not appropriate in this patient? Yes acetaminophen (TYLENOL) tablet 1,000 mg Given 07/24/2014 6:01 AM EST 1,000 mg 1,000 mg, Oral, EVERY 6 HOURS SCHEDULED, First dose on Sat07/23/14 at 1215, Until Discontinued, Maximum dose of acetaminophen is 4000 mg from all sources in 24 hours., Routine Given 07/24/2014 12:58 AM EST 1,000 mg Given 07/23/2014 12:10 PM EST 1,000 mg acetaminophen (TYLENOL) tablet 1,000 mg Given 07/28/2014 6:01 PM EST 1,000 mg 1,000 mg, Oral, EVERY 6 HOURS PRN, Starting on Sat07/27/14 at 1306, Until Aditi 07/29/14 at 1734, Pain, Maximum dose of acetaminophen is 4000 mg from all sources in 24 hours., Routine Given 07/28/2014 9:17 AM EST 1,000 mg ceFAZolin (ANCEF) 2g in dextrose 5% 50 Given 07/21/2014 3:16 AM EST 2 g 100 mL/hr mL 2 g, Intravenous, EVERY 8 HOURS, 2 doses, First dose on Sat07/20/14 at 1945, Last dose on Sat07/21/14 at 0345, Administer over 30 Minutes, *Beta-lactam based antibiotics (eg. Ampicillin, Cefazolin, Aztreonam) should be administered within 4 hours of the preceding intraoperative dose. *Vancomycin, Flouroquinolones, Clindamycin, Gentamicin, and Metronidazole should be administered within 8 hours of the preceding intraoperative dose., Indication for (Active or Suspected): Prophylaxis Given 07/20/2014 7:50 PM EST 2 g 100 mL/hr clonazePAM (KlonoPIN) tablet 1 mg Given 07/24/2014 6:29 AM EST 1 mg 1 mg, Oral, 2 TIMES DAILY PRN, Starting on Sat07/20/14 at 2152, Until Sat07/24/14 at 1100, Anxiety, Routine Given 07/23/2014 8:20 AM EST 1 mg Given 07/22/2014 2:21 PM EST 1 mg dextrose 5% and sodium chloride New Bag 07/23/2014 3:58 PM EST 75 mL/hr 75 mL/hr 0.45% infusion 75 mL/hr (100 mL/hr), Intravenous, CONTINUOUS, Starting on Sat07/21/14 at 0900, Until Sat07/23/14 at 0738 Rate/Dose Change 07/22/2014 12:00 PM EST 75 mL/hr 75 mL/hr New Bag 07/22/2014 6:48 AM EST 100 mL/hr 100 mL/hr esomeprazole (NexIUM) capsule 40 mg Given 07/23/2014 8:21 AM EST 40 mg 40 mg, Oral, DAILY, First dose on Sat07/21/14 at 0900, Until Discontinued, If unable to take PO, may give IV, Routine Given 07/22/2014 8:03 AM EST 40 mg esomeprazole (NexIUM) capsule 40 mg Given 07/29/2014 9:11 AM EST 40 mg 40 mg, Oral, DAILY, First dose on Sat07/28/14 at 0900, Until Discontinued, Routine Given 07/28/2014 9:12 AM EST 40 mg esomeprazole (NexIUM) injection 40 mg Given 07/21/2014 8:43 AM EST 40 mg 40 mg, Intravenous, DAILY, First dose on Sat07/21/14 at 0900, Until Discontinued, Routine esomeprazole (NexIUM) injection 40 mg Given 07/27/2014 8:29 AM EST 40 mg 40 mg, Intravenous, DAILY, First dose on Sat07/24/14 at 1145, Until Discontinued Given 07/26/2014 8:39 AM EST 40 mg Given 07/25/2014 8:36 AM EST 40 mg heparin (porcine) subcutaneous injection Given 014 8:19 PM EST 5,000 Units 5,000 Units 5,000 Units, Subcutaneous, EVERY 12 HOURS SCHEDULED (2 times per day), First dose on Sat07/21/14 at 0900, Until Discontinued, Routine Given 07/23/2014 9:41 AM EST 5,000 Units Given 07/22/2014 8:50 PM EST 5,000 Units heparin (porcine) subcutaneous injection Given 014 6:31 AM EST 5,000 Units 5,000 Units 5,000 Units, Subcutaneous, EVERY 8 HOURS SCHEDULED, First dose (after last modification) on 07/24/14 at 1400, Until Discontinued, Routine Given 07/28/2014 8:45 PM EST 5,000 Units Given 07/27/2014 8:53 PM EST 5,000 Units HYDROmorphone (DILAUDID) 0.2 mg/mL 10mL Given 07/20/2014 8:17 PM EST 0.4 mg Syringe (IR ONLY) 0.2-0.4 mg, Intravenous, EVERY 5 MIN PRN, Pain, Starting on Sat07/20/14 at 1901, Until Sat07/20/14 at 2105, For moderate pain give: 0.2 mg every 5 minute prn For severe pain give: 0.4 mg every 5 minutes prn Maximum dose: 4 mg per hour Hold for respiratory rate less than 10 per minute., PACU Recovery Given 07/20/2014 7:53 PM EST 0.4 mg Given 07/20/2014 7:21 PM EST 0.4 mg HYDROmorphone (DILAUDID) 1 mg/mL New Syringe/Cartridge 07/21/2014 6:4 5 AM EST [employer] 30 mL Intravenous, [employer] ONLY, Starting on Sat07/21/14 at 0645, Until Sat07/23/14 at 0737 HYDROmorphone (DILAUDID) 1 mg/mL Rate/Dose Verify 07/25/2014 10:04 PM EST 30 mg [employer] 30 mL Intravenous, [employer] ONLY, Starting on 07/24/14 at 2200, Until Sat07/28/14 at 0724 New Syringe/Cartridge 07/24/2014 10:37 PM EST 30 mg HYDROmorphone (DILAUDID) injection 0.3 m g Given 07/24/2014 12:27 PM EST 0.3 mg 0.3 mg, Intravenous, ONCE, 1 dose, On 07/24/14 at 1230, Routine HYDROmorphone (DILAUDID) injection 0.3-0 .6 mg Given 07/24/2014 9:35 PM EST 0.6 mg 0.3-0.6 mg, Intravenous, EVERY 2 HOURS PRN, Starting on Sat07/23/14 at 1257, Until 07/24/14 at 2138, Pain, Routine Given 07/24/2014 7:47 PM EST 0.6 mg Given 07/24/2014 5:24 PM EST 0.6 mg HYDROmorphone (DILAUDID) injection 0.4 m g Given 07/23/2014 12:48 PM EST 0.4 mg 0.4 mg, Intravenous, ONCE, 1 dose, On Sat07/23/14 at 1245, Routine HYDROmorphone (DILAUDID) injection 1 mg Given 07/20/2014 11:44 PM EST 1 mg 1 mg, Intravenous, ONCE, 1 dose, On Sat07/21/14 at 0000, Routine HYDROmorphone (DILAUDID) tablet 2 mg Given 07/23/2014 6:12 AM EST 2 mg 2 mg, Oral, EVERY 4 HOURS PRN, Starting on Aditi 07/22/14 at 0716, Until Sat07/23/14 at 0939, Pain, for mild pain, May give an additional 2 mg one time if pain not relieved in 30-60 minutes., Routine HYDROmorphone (DILAUDID) tablet 2 mg Given 07/23/2014 10:42 AM EST 2 mg 2 mg, Oral, EVERY 3 HOURS PRN, Starting on Sat07/23/14 at 0945, Until Sat07/23/14 at 1258, Pain, for mild pain, May give an additional 2 mg one time if pain not relieved in 30-60 minutes., Routine HYDROmorphone (DILAUDID) tablet 4 mg Given 07/23/2014 9:55 AM EST 4 mg 4 mg, Oral, EVERY 3 HOURS PRN, Starting on Sat07/23/14 at 0945, Until Sat07/23/14 at 1258, Pain, for moderate pain, May give an additional 2 mg one time if pain not relieved in 30-60 minutes., Routine HYDROmorphone (DILAUDID) tablet 4 mg Given 07/29/2014 9:22 AM EST 4 mg 4 mg, Oral, EVERY 4 HOURS PRN, Starting on Sat07/27/14 at 0737, Until Aditi 07/29/14 at 1734, Pain, for moderate pain, May give an additional 2 mg one time if pain not relieved in 30-60 minutes., Routine Given 07/28/2014 4:11 PM EST 4 mg Given 07/28/2014 9:13 AM EST 4 mg HYDROmorphone (DILAUDID) tablet 4-8 mg Given 07/24/2014 6:01 AM EST 8 mg 4-8 mg, Oral, EVERY 3 HOURS PRN, Starting on Sat07/23/14 at 1258, Until 07/24/14 at 1100, Pain, May have up to 8mg in each 3 hour period. May give in divided doses., Routine Given 07/24/2014 1:49 AM EST 8 mg Given 07/23/2014 10:15 PM EST 8 mg HYDROmorphone (DILAUDID) tablet 6 mg Given 07/29/2014 1:42 PM EST 6 mg 6 mg, Oral, EVERY 4 HOURS PRN, Starting on Sat07/27/14 at 0737, Until Aditi 07/29/14 at 1734, Pain, for severe pain, May give an additional 2 mg one time if pain not relieved in 30-60 minutes., Routine Given 07/29/2014 4:39 AM EST 6 mg Given 07/28/2014 8:28 PM EST 6 mg ketorolac (TORADOL) injection 15 mg Given 07/23/2014 5:08 AM EST 15 mg 15 mg, Intravenous, EVERY 8 HOURS, 6 doses, First dose (after last modification) on Sat07/21/14 at 1400, Last dose on Sat07/23/14 at 0600, Routine Given 07/22/2014 10:31 PM EST 15 mg Given 07/22/2014 2:21 PM EST 15 mg ketorolac (TORADOL) injection 30 mg Given 07/21/2014 6:32 AM EST 30 mg 30 mg, Intravenous, EVERY 6 HOURS SCHEDULED, 20 doses, First dose on Sat07/21/14 at 0645, Last dose on Sat07/26/14 at 0000, Routine lactated ringers 1,000 mL IV bolus Given 07/24/2014 3:12 PM EST Intravenous, ONCE, 1 dose, On Sat07/24/14 at 1430 lactated ringers infusion New Bag 07/20/2014 7:26 PM EST 125 mL/hr 125 mL/hr 125 mL/hr, Intravenous, CONTINUOUS, Starting on Sat07/20/14 at 1945, Until Sat07/21/14 at 0832 lactated ringers infusion New Bag 07/26/2014 6:58 PM EST 100 mL/hr 100 mL/hr 100 mL/hr, Intravenous, CONTINUOUS, Starting on Sat07/24/14 at 1315, Until Sat07/27/14 at 1308 New Bag 07/25/2014 10:53 PM EST 100 mL/hr 100 mL/hr New Bag 07/25/2014 12:05 PM EST 100 mL/hr 100 mL/hr lactobacillus (BACID) tablet 1 tablet Given 07/29/2014 9:11 AM EST 1 tablet 1 tablet, Oral, DAILY, First dose on Sat07/28/14 at 2000, Until Discontinued, Routine Given 07/28/2014 8:43 PM EST 1 tablet LORazepam (ATIVAN) injection 0.5 mg Given 07/26/2014 3:06 AM EST 0.5 mg 0.5 mg, Intravenous, EVERY 6 HOURS PRN, Starting on Sat07/24/14 at 1059, Until Sat07/26/14 at 1126, Anxiety, Routine Given 07/25/2014 8:54 PM EST 0.5 mg Given 07/25/2014 2:54 PM EST 0.5 mg LORazepam (ATIVAN) injection 0.5 mg Given 07/26/2014 11:10 AM EST 0.5 mg 0.5 mg, Intravenous, ONCE, 1 dose, On Sat07/26/14 at 1100, Routine LORazepam (ATIVAN) injection 0.5 mg Given 07/27/2014 8:50 PM EST 0.5 mg 0.5 mg, Intravenous, EVERY 6 HOURS PRN, Starting on Sat07/26/14 at 1125, Until Aditi 07/29/14 at 1734, Anxiety, Routine Given 07/26/2014 6:13 PM EST 0.5 mg LORazepam (ATIVAN) tablet 0.5 mg Given 07/29/2014 9:22 AM EST 0.5 mg 0.5 mg, Oral, EVERY 6 HOURS PRN, Starting on Sat07/26/14 at 1125, Until Aditi 07/29/14 at 1734, Anxiety, Routine Given 07/28/2014 8:28 PM EST 0.5 mg Given 07/28/2014 9:16 AM EST 0.5 mg methylPREDNISolone (MEDROL) tablet 4 mg Given 07/24/2014 8:49 AM EST 4 mg 4 mg, Oral, DAILY, First dose on Sat07/21/14 at 0900, Until Discontinued, Routine Given 07/23/2014 8:20 AM EST 4 mg Given 07/22/2014 8:03 AM EST 4 mg methylPREDNISolone sodium succinate (PF) Given 07/29/2014 9:11 A M EST 4 mg (solu-MEDROL) 40 mg/mL injection 4 mg 4 mg, Intravenous, DAILY, First dose on Sat07/24/14 at 1130, Until Discontinued Given 07/28/2014 9:17 AM EST 4 mg Given 07/27/2014 8:30 AM EST 4 mg metoclopramide (REGLAN) tablet 10 mg Given 07/28/2014 11:40 AM EST 10 mg 10 mg, Oral, 4 TIMES DAILY BEFORE MEALS & NIGHTLY, First dose on Sat07/28/14 at 1130, Until Discontinued, Routine morphine (PF) 1 mg/mL injection 1 mg Given 07/20/2014 11:30 PM EST 1 mg 1 mg, Intravenous, ONCE, 1 dose, On Sat07/20/14 at 2330, For breakthrough pain, Routine morphine 1 mg/mL [employer] 30 mL New Syringe/Cartridge 07/20/2014 7:26 PM EST 30 mg Intravenous, [employer] ONLY, Starting on Sat07/20/14 at 1945, Until Sat07/20/14 at 2336 morphine 1 mg/mL [employer] 30 mL Rate/Dose Change 07/20/2014 11:47 PM EST 30 mg Intravenous, [employer] ONLY, Starting on Sat07/21/14 at 0000, Until Sat07/21/14 at 0618 morphine 2 mg/mL carpuject Given 07/20/2014 11:17 PM EST 2 mg 1 dose, Starting on Sat07/20/14 at 2307, Until Sat07/20/14 at 2317, LOLI BRANCH: cabinet override ondansetron (ZOFRAN) injection 4 mg Given 07/28/2014 6:13 AM EST 4 mg 4 mg, Intravenous, EVERY 8 HOURS PRN, Starting on Sat07/20/14 at 2151, Until Aditi 07/29/14 at 1734, Nausea, May repeat times one in 30 minutes if ineffective, Recovery (Rec[facility]-Hospital Unit) Given 07/27/2014 1:14 PM EST 4 mg Given 07/24/2014 10:57 AM EST 4 mg ondansetron (ZOFRAN) injection 4 mg Given 07/20/2014 7:10 PM EST 4 mg 4 mg, Intravenous, EVERY 30 MIN PRN, Starting on Sat07/20/14 at 1901, Until Sat07/20/14 at 2105, Nausea, May repeat 4 mg once in 30 minutes. Consider prochlorperazine if ineffective., PACU Recovery ondansetron (ZOFRAN) injection 4 mg Given 07/23/2014 1:00 PM EST 4 mg 4 mg, Intravenous, ONCE, 1 dose, On Sat07/23/14 at 1315 potassium chloride 10 mEq in 100 mL Given 07/24/2014 6:47 PM EST 5 mEq 100 mL/hr 10 mEq, Intravenous, EVERY 2 HOURS, 4 doses, First dose on Sat07/24/14 at 1200, Last dose on Sat07/24/14 at 1800, Administer over 60 Minutes Given 07/24/2014 4:44 PM EST 5 mEq 100 mL/hr Given 07/24/2014 1:39 PM EST 10 mEq 100 mL/hr prochlorperazine (COMPAZINE) injection 1 0 mg Given 07/23/2014 11:53 PM EST 10 mg 10 mg, Intravenous, EVERY 6 HOURS PRN, Starting on Sat07/23/14 at 1636, Until 07/24/14 at 2138, Nausea, Nausea/Vomiting, Routine Given 07/23/2014 4:56 PM EST 10 mg prochlorperazine (COMPAZINE) injection 5 mg Given 07/27/2014 4:02 AM EST 5 mg 5 mg, Intravenous, EVERY 30 MIN PRN, 2 doses, Starting on Sat07/24/14 at 2137, Until Sat07/27/14 at 0402, Nausea, May repeat in 30 minutes if no relief from previous dose. HOLD if patient is sedated. Maximum dose is 40 mg in 24 hours., Routine Given 07/26/2014 6:49 AM EST 5 mg prochlorperazine (COMPAZINE) tablet 10 m g Given 07/27/2014 6:05 PM EST 10 mg 10 mg, Oral, EVERY 6 HOURS PRN, Starting on Sat07/23/14 at 1636, Until Sat07/28/14 at 0725, Nausea, Nausea/Vomiting, If unable to take PO, may give IV, Routine Given 07/24/2014 8:59 AM EST 10 mg prochlorperazine (COMPAZINE) tablet 10 m g Given 07/29/2014 4:39 AM EST 10 mg 10 mg, Oral, EVERY 6 HOURS PRN, Starting on Sat07/28/14 at 1308, Until Aditi 07/29/14 at 1734, Nausea, Nausea/Vomiting, If unable to take PO, may give IV, Routine Given 07/28/2014 8:08 PM EST 10 mg Given 07/28/2014 1:33 PM EST 10 mg promethazine (PHENERGAN) injection 6.25 mg Given 07/20/2014 7:55 PM EST 6.25 mg 6.25 mg, Intravenous, ONCE PRN, 1 dose, Starting on Sat07/20/14 at 1901, Until Sat07/20/14 at 1955, Nausea, Dilute in 20 mL sodium chloride 0.9% and administer through a free flowing IV. Usual dose range 0.25-0.5 mg/kg/dose to a maximum of 25 mg/dose, PACU Recovery, Routine sertraline (ZOLOFT) tablet 50 mg Given 07/29/2014 9:11 AM EST 50 mg 50 mg, Oral, DAILY, First dose on Sat07/21/14 at 0900, Until Discontinued, Routine Given 07/28/2014 9:12 AM EST 50 mg Given 07/27/2014 8:28 AM EST 50 mg sodium chloride 0.9 % flush 5 mL Given 07/29/2014 9:11 AM EST 5 mLs 5 mL, Intravenous, 2 TIMES DAILY, First dose on Sat07/20/14 at 2215, Until Discontinued, Recovery (Recovery-Hospital Unit), Routine Given 07/28/2014 8:11 PM EST 5 mLs Given 07/28/2014 9:21 AM EST 5 mLs documented in this encounter Active and Recently Administered Medications Times are shown in EST. Scheduled Medication Order 07/27/2014 07/28/2014 07/29/2014 acetaminophen (OFIRMEV) injection 1,000 mg (COMPLETED) 2039 (Given - Provider: Padmini Valdez RN) 1,000 mg, Intravenous, at 400 mL/hr, ONC E, 1 dose, Sat07/27/14 at 2100, Maximum dose of acetaminophen is 4000 mg from all sources in 24 hours., STAT esomeprazole (NexIUM) capsule 40 mg (CANCELED) 0912 (Given - Provider: Lilliam Barfield RN) 0911 (Given - Provider: Slime Madrigal RN) 40 mg, Oral, DAILY, First dose on Sat at 0900, Until Discontinued, Routine esomeprazole (NexIUM) injection 40 mg (CANCELED) 0829 (Given - Provider: Damaris Bender RN) 40 mg, Intravenous, DAILY, First dose on Sat07/24/14 at 1145, Until Discontinued, Routine heparin (porcine) subcutaneous injection 5,000 Units ( CANCELED) 0640 (Given - Provider: Josué Eng RN)1314 (Given - Provider: Damaris Bender RN)2053 (Given - Provider: Padmini Valdez, MICHELLE)2200 (Not Given - Provider: Padmini Valdez RN - Reason: See comment - Comment: given earlier per pt request) 0600 (Not Given - Provider: Padmini stiles RN - Reason: Patient/family refused)1400 (Not Given - Provider: Lilliam Barfield RN - Reason: Patient/family refused)2045 (Given - Provider: Padmini Valdez, MICHELLE) 0631 (Given - Provider: Padmini Valdez RN)1341 (Not Given - Provider: Slime Madrigal RN [...] MICHELLE) 05 26 (Given - Provider: Lilliam Barfield RN) 0911 (Given - Provider: Slime Madrigal, MICHELLE) 4 mg, Intravenous, DAILY, First dose on Sat07/24/14 at 1130, Until Discontinued, Routine metoclopramide (REGLAN) tablet 10 mg (CANCELED) 1140 (Given - Provider: Lilliam Barfield RN) 10 mg, Oral, 4 TIMES DAILY BEFORE [...] Josué Eng RN)1113 (Given - Provider: Damaris Bender RN) 1,000 mg, Intravenous, at 400 mL/hr, QUAN [...] Barfield RN)2028 (See Alternative - Provider: Padmini Valdez RN) 0439 (See Alternative - Provider: Padmini Valdez RN)0922 (See Alternative - Provider: Slime Madrigal RN)1342 [...] Padmini Valdez RN)0922 (Given - Provider: Slime Madrigal RN)1342 (See Alternative - Provider: Slime Madrigal RN) 4 mg, Oral, EVERY 4 HOURS PRN, Starting Sat07/27/14 at 0737, Until Aditi 07/29/14 at 1734, Pain, for moderate pain, May give an additional 2 mg one time if pain not relieved in 30-60 minutes., Routine HYDROmorphone (DILAUDID) tablet 6 mg (CANCELED) 0945 ( See Alternative - Provider: Damaris Bender RN)1422 (See Alternative - Provider: Damaris Bender RN)1804 (See Alternative - Provider: Damaris Bender RN) 0913 (See Alternative - Provider: Lilliam Barfield RN)161 (See Alternative - Provider: Lilliam Barfield RN)2027 (Given - Provider: Padmini Valdez RN) 0439 (Given - Provider: Padmini Valdez RN)0922 (See Alternative - Provider: Slime Madrigal RN)1342 (Given - Provider: Slime Madrigal RN) 6 mg, Oral, EVERY 4 HOURS PRN, Pain, for severe pain, Starting Sat07/27/14 at 0737, May give an additional 2 mg one time if pain not relieved in 30-60 minutes. LORazepam (ATIVAN) injection 0.5 mg (CANCELED) 0505 (S ee Alternative - Provider: Josué Eng RN)2049 (Given - Provider: Padmini Valdez RN) 0916 (See Alternative - Provider: Lilliam Barfield RN)202 (See Alternative - Provider: Padmini Valdez RN) 0922 (See Alternative - Provider: Slime Madrigal RN) 0.5 mg, Intravenous, EVERY 6 HOURS PRN, Starting 07/26/14 at 1125, Until Aditi 07/29/14 at 1734, Anxiety, Routine LORazepam (ATIVAN) tablet 0.5 mg (CANCELED) 0505 (Give n - Provider: Josué Eng RN)2049 (See Alternative - Provider: Padmini Valdez, MICHELLE) 0916 (Given - Provider: Lilliam Barfield, RN)2027 (Given - Provider: Padmini Valdez, MICHELLE) 0922 (Given - Provider: Slime Madrigal RN) 0.5 mg, Oral, EVERY 6 HOURS PRN, Startin g 07/26/14 at 1125, Until Aditi 07/29/14 at 1734, Anxiety, Routine ondansetron (ZOFRAN) injection 4 mg (CANCELED) 1314 (G iven - Provider: Damaris Bender, MICHELLE) 0613 (Given - Provider: Padmini Valdez, MICHELLE) 4 mg, Intravenous, EVERY 8 HOURS PRN, [facility] 07/20/14 at 2151, Until Aditi 07/29/14 at [...] (CANCELED) 1333 (Given - Provider: Lilliam Barfield, MICHELLE)2007 (Given - Provider: Padmini Valdez, MICHELLE) 0439 (Given - Provider: Padmini Valdez RN) 10 mg, Oral, EVERY 6 HOURS PRN, Starting 07/28/14 at 1308, Until Aditi 07/29/14 at 1734, Nausea, Nausea/Vomiting, If unable to take PO, may give IV, Routine documented in this encounter Care Teams Hris Administrator Relationship Specialty Start Date End Date Adrián Bautista MD PCP - General 12/04/13 10/30/[address] [place] [address] documented as of this encounter
--- OUTSIDE RECORDS SUMMARY | 2022-08-04 16:25 | XMS_ITS | Encounter Summary ---
:1975 [place] [address] Care Team Providers Name Role Phone Adrián Reynolds MD Primary Care Provider [phone] Reason for Visit Reason Onset Date Comments Medication Refill 08/23/2014 Encounter Details Date Type Department Care Team Description 08/23/2014 Refill Rheumatology at [facility] Rebeca Valerio [facility]ly [facility] [place] [address] RHEUMATOLOGY DEPT. [phone] [place], [place] [address] (Wo rk) Social History Tobacco [...] on filedocumented in this encounter Care Teams Plant Cytologist Relationship Specialty Start Date End Date Adrián Reynolds MD PCP - General 12/04/13 10/30/15 [address] [place] [address] documented as of this encounter
--- OUTSIDE RECORDS SUMMARY | 2022-08-04 16:25 | XMS_ITS | Encounter Summary ---
:1975 Author Organization [facility] [place] [address] Care Team Providers Name Role Phone Adrián Reynolds MD Primary Care Provider [phone] Reason for Visit Reason Comments Follow-up Encounter Details Date Type Department Care Team Description 07/12/2014 Follow-Up General Surgery at [facility] Mele Alexander MD Pneumatosis coli; [facility] [address] [place] [address] GENERAL SURGERY [phone] [place] [address] (Wo rk) Social History Tobacco Use Types Packs/Day Years Used Date Smoking Tobacco: Former Cigarettes Smokeless Tobacco: Never Comments: Quit in 2008 Alcohol Use Standard Drinks/Week Comments No 0 (1 standard drink = 0.6 oz pure alcoho l) Sex Assigned at Date Recorded Not on file documented as of this encounter Last Filed Vital Signs Vital Sign Reading Time Taken Comments Blood Pressure 134/79 07/12/2014 3:11 PM EST Pulse 81 07/12/2014 3:11 PM EST Temperature - - Respiratory Rate 16 07/12/2014 3:11 PM EST Oxygen Saturation 100% 07/12/2014 3:11 PM EST Inhaled Oxygen Concentration - - Weight 94.2 kg (207 lb 10.8 oz) 07/12/2014 3:11 PM EST Height - - Body Mass Index 39.26 05/20/2014 1:00 PM EDT documented in this encounter Progress Notes Mele Alexander MD - 07/18/2014 9:41 PM EST 01/28/14:Exploratory laparotomy Right colectomy with end ileostomy-Benjamin HPI: Returns today to further discuss ileostomy reversal. She underwent a colonoscopy on 06/07 which showed some diversion colitis along the transverse and proximal descending colon. She has been doing well, managing her ileostomy output although it is frequently loose. Her RA has overall been well controlled but she did bump her medrol up to 6 mg recently, but has since decreased back to 4 mg. Deniesany recent fevers, chills, nausea or emesis. No chest pain or shortness of breath. Exam Gen: over weight, pleasant, in no distress CV: regular Resp: clear bilateral Abd: Soft, non distended, non tender. Well healed midline incision, no hernia. Stoma is pink and there is loose stool noted. Ext: trace bilateral edema of the LE A/P: 39 year old woman almost six months out from a partial colectomy and ileostomy. She is gratefulshe underwent this procedure when she did as it greatly helped her abdominal distress and allowed her to get healthy. She believes her RA is controlled well enough at this time to stop her Humira and pr oceed with surgery. I explained the procedure would involve taking down her ileostomy and removing alittle more of her colon to provide good tissue for isaac anastomosis. We discussed the risks to include anastomotic leak, hernia and infection given her medrol and methotrexate. She understands and wishes to proceed. Plan for surgery next week. documented in this encounter Plan of Treatment Not on filedocumented as of this encounter Procedures Procedure Name Priority Date/Time Associated Diagnosis Comme nts HEMOGRAM Routine 07/12/2014 4:01 PM Pneumatosis coli Resul ts for this EST procedure are i n the results section. DIFFERENTIAL, Routine 07/12/2014 4:01 PM Pneumatosis coli Resu lts for this AUTOMATED EST procedure are i n the results section. CREATININE Routine 07/12/2014 4:01 PM Pneumatosis coli Resul ts for this EST procedure are i n the results section. CBC (WITH DIFF) Routine 07/12/2014 4:01 PM Pneumatosis coli EST BUN Routine 07/12/2014 4:01 PM Pneumatosis coli Resul ts for this EST procedure are i n the results section. ELECTROLYTES PANEL Routine 07/12/2014 4:01 PM Pneumatosis coli Results for this EST procedure are i n the results section. documented in this encounter Results (ABNORMAL) Differential, Automated (07/12/2014 4:01 PM EST) [facility] Method Time Signature Neutrophils % 71.9 % CERNER MILLENNIUM Neutr Abs (ANC) 9.58 (H) 1.50 - CERNER 6.30 MILLENNIUM x10(3)/mc L Lymphocytes % 21.4 % CERNER MILLENNIUM Lymphocytes Abs 2.8 1.0 - 3.6 CERNER x10(3)/mc MILLENNIUM L Monocytes % 5.6 % CERNER MILLENNIUM Monocyte Abs 0.7 0.2 - 1.0 CERNER x10(3)/mc MILLENNIUM L Eosinophils % 0.5 % CERNER MILLENNIUM Eosinophils Abs 0.1 0.0 - 0.5 CERNER x10(3)/mc MILLENNIUM L Basophils % 0.2 % CERNER MILLENNIUM Basophils Abs 0.0 0.0 - 0.2 CERNER x10(3)/mc MILLENNIUM L Immature Gran % 0.40 % CERNER MILLENNIUM Comment: Immature granulocytes(IG's)percentage an [...] Location / / Volume Laterality Blood specimen 07/12/2014 4:01 PM 014 4:06 (specimen) EST PM EST Resulting Agency Comment Spec In Lab Mele Alexander MD HEMATOLOGY ORDERABLES Performing Organization Address City/State/ZIP Code Phon e Number [place] [phone] CERNER MILLENNIUM (ABNORMAL) Hemogram (07/12/2014 4:01 PM EST) athologist Signature WBC 13.3 (H) 4.0 - 10.0 CERNER x10(3)/mcL MILLENNIUM RBC 4.76 3.93 - CERNER 5.22 MILLENNIUM x10(6)/mcL Hemoglobin 13.9 11.2 - CERNER 15.7 gm/dL MILLENNIUM Hematocrit 40.3 34.0 - CERNER 45.0 % MILLENNIUM MCV 84.7 79.0 - CERNER 94.0 fL MILLENNIUM MCH 29.2 26.6 - CERNER 32.2 pg MILLENNIUM MCHC 34.5 32.0 - CERNER 36.5 gm/dL MILLENNIUM Platelets 254 145 - 370 CERNER x10(3)/mcL MILLENNIUM RDWSD 46.5 (H) 35.0 - CERNER 46.0 fL MILLENNIUM RDWCV 15.1 (H) 10.9 - CERNER 14.4 % MILLENNIUM MPV 10.0 9.0 - 12.0 CERNER fL MILLENNIUM Specimen Anatomical Collection Method Collection Time Receive d Time (Source) Location / / Volume Laterality Blood specimen 07/12/2014 4:01 PM 014 4:06 (specimen) EST PM EST Resulting Agency Comment Spec In Lab Mele Alexander MD HEMATOLOGY ORDERABLES Performing Organization Address City/State/[place] [address] CERNER MILLENNIUM Creatinine (07/12/2014 4:01 PM EST) athologist Signature Creatinine 0.82 0.70 - 1.20 CERNER mg/dL MILLENNIUM Comment: Please note that the pediatric reference intervals supplied above were not validated at [facility]. Results from pediatri c patients should be interpreted in conjunction to the patient's age, height and muscle mass. Estimated GFR >60 >=60 CERNER MILLENNIU M [...] the following links into your internet browser. [email or web address] Specimen Anatomical Collection Method Collection Time Receive d Time (Source) Location / / Volume Laterality Blood specimen 07/12/2014 4:01 PM 014 4:06 (specimen) EST PM EST Resulting Agency Comment Spec In Lab Mele Alexander MD CHEMISTRY ORDERABLES Performing Organization Address City/[facility]/[place] [address] CERNER MILLENNIUM (ABNORMAL) BUN (07/12/2014 4:01 PM EST) P athologist Signature BUN 22 (H) 8 - 18 CERNER mg/dL MILLENNIUM Specimen Anatomical Collection Method Collection Time Receive d Time (Source) Location / / Volume Laterality Blood specimen 07/12/2014 4:01 PM 014 4:06 (specimen) EST PM EST Resulting Agency Comment Spec In Lab Mele Alexander MD CHEMISTRY ORDERABLES Performing Organization Address City/[facility]/[place] [address] CERNER MILLENNIUM Electrolytes panel (07/12/2014 4:01 PM EST) P athologist Signature Sodium 138 135 - 145 CERNER mmol/L MILLENNIUM Potassium 4.4 3.5 - 5.0 CERNER mmol/L MILLENNIUM Comment: Please note: ??Patients with WBC >100,00 [...] 5 - 15 mmol/L CERNER MILLENNIU M Specimen Anatomical Collection Method Collection Time Receive d Time (Source) Location / / Volume Laterality Blood specimen 07/12/2014 4:01 PM 014 4:06 (specimen) EST PM EST Resulting Agency Comment Spec In Lab Mele Alexander MD CHEMISTRY ORDERABLES Performing Organization Address City/State/[place] [address] [facility] documented in this encounter Visit Diagnoses Diagnosis Pneumatosis coli Other specified disorder of intestines Ileostomy in place Ileostomy status documented in this encounter Care Teams Kinesiology Internship Relationship Specialty Start Date End Date Adrián Reynolds MD PCP - General 12/04/13 10/30/[address] [place] [address] documented as of this encounter
--- OUTSIDE RECORDS SUMMARY | 2022-08-04 16:25 | XMS_ITS | Encounter Summary ---
:1975 Author Organization [facility] [place] [address] Care Team Providers Name Role Phone Adrián Reynolds MD Primary Care Provider [phone] Reason for Visit Reason Comments IV Medication Encounter Details Date Type Department Care Team Description 12/01/2014 Hospital Encounter Med Infusion at CLINIC, DR DENISE Adams umcristo arthritis [facility] Josh Hermosillo MD [facility] [place] [address] [place] [address] Social History Tobacco Use Types Packs/Day Years Used Date Smoking Tobacco: Former Cigarettes Smokeless Tobacco: Never Comments: Quit in 2008 Alcohol Use Standard Drinks/Week Comments No 0 (1 standard drink = 0.6 oz pure alcoho l) Sex Assigned at Date Recorded Not on file documented as of this encounter Last Filed Vital Signs Vital Sign Reading Time Taken Comments Blood Pressure 132/84 12/01/2014 10:06 AM EDT Pulse 93 12/01/2014 10:06 AM EDT Temperature 36.7 ??C (98.1 ??F) 12/01/2014 10:06 AM EDT Respiratory Rate 18 12/01/2014 10:06 AM EDT Oxygen Saturation 95% 12/01/2014 10:06 AM EDT Inhaled Oxygen Concentration - - [...] encounter Progress Notes Ace Chadwick RN - 12/01/2014 11:58 AM EDT Patient Name: Monique Zamora Patient Age: 39 y.o. Birthdate: 1975 Admit date: 12/01/2014 Attending Physician: Dr Denise Valverde INFUSION THERAPY ADMINISTRATION NOTES DIAGNOSIS: The encounter diagnosis was Rheumatoid arthritis. REASON FOR VISIT: xa # 1 SUBJECTIVE: Offers no complaints. OBJECTIVE: First time receiving this medication, nursing education provided VITALS: BP 132/84 Pulse 93 Temp(Src) 36.7 ??C (98.1 ??F) (Oral) Resp 18 SpO2 95% IF PAIN >5, INTERVENTION AND EFFECTIVENESS: na IV ACCESS: Peripheral IV - Single Lumen 12/01/14 1020 median vein right (underside of arm) 24 gauge;3/4 in length (Active) HYDRATION: NS @ KVO 1020 off with infusion ANTIEMETICS/PREMEDS, Methylprednisolone 100 mg IV @ [id number] Benadryl 25 mg IV@ 1030 to 1040 Patient identification and orders checked against actual dose given at bedside by Ace Chadwick RN TREATMENT Rituxan 1000 mg IV Administration times: See NOV First dosing schedule used. REACTIONS None. ASSESSMENT: Tolerated infusion well. PLAN: Return to clinic on 12/15/14 Follow up per Rheumatology documented in this encounter Plan of Treatment Not on filedocumented as of this encounter Visit Diagnoses Diagnosis Rheumatoid arthritis documented in this encounter Administered Medications Inactive Administered Medications - up to 3 most recent administrations Medication Order MAR Action Action Date Dose Rate Site diphenhydrAMINE (BENADRYL) Given 12/01/2014 10:46 AM EDT 25 mg injection 25 mg 25 mg, Intravenous, ONCE, 1 dose, On Sat12/01/14 at 1015, FIRST INFUSION Upon arrival prior to rituximab., Outpatient Transfusion, Routine methylPREDNISolone sodium succinate (PF) Given 12/01/2014 10:20 AM EDT 100 mg (solu-MEDROL) injection 100 mg 100 mg, Intravenous, ONCE, 1 dose, On Sat12/01/14 at 1015, FIRST INFUSION Upon arrival prior to rituximab., Outpatient Transfusion riTUXimab (RITUXAN) 1,000 mg in sodium New Bag 12/01/2014 11:1 0 AM EDT 1,000 mg chloride 0.9% 500 mL infusion 1,000 mg, Intravenous, ONCE, 1 dose, On Sat12/01/14 at 1045, FIRST INFUSION Administer intravenously at an initial [...] diagnosis documented in this encounter Care Teams Heat Curer Relationship Specialty Start Date End Date Adrián Reynolds MD PCP - General 12/04/13 10/30/15 [address] [facility] [place] [address] documented as of this encounter
--- OUTSIDE RECORDS SUMMARY | 2022-08-04 16:26 | XMS_ITS | Encounter Summary ---
:1975 Author Organization [facility] [place] [address] Care Team Providers Name Role Phone Adrián Reynolds MD Primary Care Provider Reason for Visit Reason Onset Date Comments Results 01/28/2014 Encounter Details Date Type Department Care Team Description 01/28/2014 Telephone Rheumatology at [facility] Rebeca Valerio, Results [facility] [place] [address] [facility] [phone] RHEUMATOLOGY DEP [place], [place] [address] (Wo rk) Social History Tobacco Use Types Packs/Day Years Used Date Smoking Tobacco: Former Cigarettes Comments: quit 2 years ago Alcohol Use Standard Drinks/Week Comments No 0 (1 standard drink = 0.6 oz pure alcoho l) Sex Assigned at Date Recorded Not on file documented as of this encounter Miscellaneous Notes Telephone Encounter - Rebeca Valerio DO - 01/28/2014 5:37 PM EDT I received a call from Dr. Shin in radiology regarding Mrs. Zamora's CT scan of the abdomen. She has had 3-4 weeks of recurrent nausea, vomiting abdominal pain and diarrhea. 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 She continues to have abdominal pain, bloating and nausea. She has been on high dose steroids for her RA and has recently tapered down to 12 of of medrol daily. She is also on Humira which seems to be helping her RA and is allowing us to taper the steroids. Given her continued symptoms and risk for intestinal perforation, I asked her to come to the ED to be evaluated by general surgery. The patient expressed understanding. documented in this encounter Plan of Treatment Not on filedocumented as of this encounter Visit Diagnoses Diagnosis Pneumatosis intestinalis - Primary Other specified disorder of intestines documented in this encounter Care Teams Sheet Cutter Relationship Specialty Start Date End Date Adrián Reynolds MD PCP - General 12/04/13 10/30/[address] [place] [address] documented as of this encounter
--- OUTSIDE RECORDS SUMMARY | 2022-08-04 16:26 | XMS_ITS | Encounter Summary ---
:1975 Author Organization [facility] [place] [address] Care Team Providers Name Role Phone Fadia Bautista MD Primary Care Provider [phone] Reason for Visit Reason Comments Abdominal Pain Encounter Details Date Type Department Care Team Description 01/28/2014 - Hospital Encounter [address] [place] Janene Cline MD [facility] [place] [address] Abdominal pain, 02/03/2014 [facility] Deepthi Alexander MD [facility] [place] [address] unspecified site Hospital Declan Graham MD [facility] [place] [address] [place] [address] Social History Tobacco Use Types Packs/Day Years Used Date Smoking Tobacco: Former Cigarettes Comments: quit 2 years ago Alcohol Use Standard Drinks/Week Comments No 0 (1 standard drink = 0.6 oz pure alcoho l) Sex Assigned at Date Recorded Not on file documented as of this encounter Last Filed Vital Signs Vital Sign Reading Time Taken Comments Blood Pressure 123/63 02/03/2014 9:37 AM EDT Pulse 79 02/03/2014 9:37 AM EDT Temperature 36.7 ??C (98.1 ??F) 02/03/2014 9:37 AM EDT Respiratory Rate 16 02/03/2014 9:37 AM EDT Oxygen Saturation 99% 02/03/2014 9:37 AM EDT Inhaled Oxygen Concentration - - Weight 88.9 kg (196 lb) 01/29/2014 5:18 PM EDT Height 154.9 cm (5' 1) 01/29/2014 5:18 PM EDT Body Mass Index 37.03 01/29/2014 5:18 PM EDT documented in this encounter Discharge Instructions Patient InstructionsHeide Townsend MD - 01/29/2014 5:42 PM EDT Call your doctor if: Please call if you notice worsening redness or drainage from incision(s) lasting longer than 5 days after your surgery, any foul- smelling drainage from the incision, pain not controlled by pain medications, persistent nausea and vomiting, or for any fevers greater than 101.3 F. The number for questions is [phone] before 5 PM weekdays and [phone] after 5 PM and weekends. Activity level: No heavy lifting greater than 10 pounds (about equal to a full gallon jug) for the next 4 weeks or until cleared to do so at follow-up appointment. Otherwise activity as tolerated by comfort level. Diet: You may resume your regular diet as tolerated. Driving: No driving while still taking opioid pain medications (wait at least 6- 8 hours since last dose). No driving if you are still sore from surgery as it may limit your ability to react quickly if necessary. Shower/Bath: You may shower and get incision(s) wet. Pat dry immediately following. Do not scrub them vigorously for the next 2-3 weeks. Do not soak incision(s) for the next 2 weeks (i.e. soaking in bath or swimming) as this may promote a wound infection. Wound Care: Wash incision with soap and water, pat dry, and leave open to air. Allow steri-strips (pieces of tape) to fall off on their own if you have them. You may cover with gauze as needed to prevent incision rubbing on clothes or for any seepage. *Ezekiel: These may be removed in 10-14 days from the date of operation. This may be done during your follow up visit with general surgery Follow up Appointments: Follow-up appointment will be scheduled with general surgery clinic Appointment will be mailed to you. Please call [phone] (clinic number for appointments) to confirm date and time of your appointment if you do not receive your apointment in a timely fashion. DIVISION OF COLON AND RECTAL SURGERY High Ileostomy Output Patient Instructions: This content was designed for use in [facility] Division of Colon & Rectal Surgery Patients Only Patients with new ileostomies are especially prone to dehydration - the most common preventable cause of readmission to the hospital after you are discharged. Please take the following instructions seriously in order to avoid being re-admitted for dehydration. 1. If you are having >1.5 liters (about 6 1/2 cups or 50 ounces) per 24 hours of ileostomy output, then you are at increased risk of becoming dehydrated. 2. Dry mouth, dark urine or less than normal urine output, dizziness, or flu- like symptoms are some signs of dehydration. 3. Please re-hydrate yourself not with plain water (which can make dehydration worse by diluting thesalt in your body) but with coconut water, Pedialyte, or snom-ibw-xxuediv Oral Rehydration Solutions(ORS) available from the pharmacy. 4. If you are having thin watery/loose stool then it needs to be thickened with diet ?? eat stool thickening foods such as the BRAT diet (soft Bananas, white Rice, Applesauce, [place]) aswell as cheese, creamy peanut butter, pasta, mashed potatoes. ?? take Metamucil one TABLESPOON in only 4 oz. of water two to three times per day to thicken your stool. ?? Drink most of your liquids between meals (not with meals) to maximize absorption of the food you eat. ?? Do not restrict salt in your diet, as sodium losses in ostomy output can be great. ?? Potato chips and Gatorade can help to thicken the stool and replace salt losses quickly. ?? Peeled pickles are another high salt food option to help prevent sodium losses in ostomy output. 5. If your stool becomes thicker but still >1.5L per 24 hours then start [id number] Imodiumto slow your stool down ?? Start with half a tablet 30 minutes before meals and at bedtime. ?? If this helps but not enough then increase to 1 tablet 30 minutes before meals and at bedtime. ?? If this helps but not enough then increase to 2 tablets 30 minutes before meals and at bedtime. 6. If you are still having high output then call your team (doctor or stoma nurse) at the hospital (as above). Remember do not take extended release pills or large pills which may cause a blockage. You may crushnon-extended release pills and take them with applesauce, yogurt, or pudding. Intake and Output for New Ileostomy Patients [facility] Division of Colon & Rectal Surgery Name: Intakes / Outputs Date in in in in out out out out out Food Liquid IV fluids TPN urine stool drain #1 drain #2 drain #3 7am 8am 9am 10am 11am 12pm 1pm 2pm 3pm 4pm 5pm 6pm 7pm 12 hour total 8pm 9pm 10pm 11pm 12am 1am 2am 3am 4am 5am 6am 7am 12 hour total 24 hour total documented in this encounter Medications at Time of Discharge Medication Sig Dispensed Refills Start Date End Date oxyCODONE (ROXICODONE) 5 mg Take 1-3 tablets 100 tablet 0 02/15/2014 immediate release tablet by mouth every 3 hours as needed for Pain. methylPREDNISolone (MEDROL) 24 mg daily x 7 180 tablet 2 01/201408/03/2014 4 mg tablet days, then decrease by 4 mg every 7 days ondansetron (ZOFRAN-ODT) 4 0 4 07/19/2014 mg oral disintegrating tablet folic acid (FOLVITE) 1 mg Take 1 tablet by 90 tablet 3 12/0905/10/2016 tablet mouth daily. SUMAtriptan (IMITREX) 50 mg as needed. 0 09/16/19 14 07/19/2014 tablet traMADol (ULTRAM) 50 mg Take 1-2 tablets 240 tablet 3 201303/18/2014 tablet by mouth every 6 hours as needed for Pain. leflunomide (ARAVA) 20 mg Take 1 tablet by 90 tablet 3 11/0705/20/2014 tablet mouth daily. sertraline (ZOLOFT) 50 mg Take 100 mg by 0 10/31/2015 tablet mouth daily. clonAZEpam (KLONOPIN) 1 mg 0 7 07/19/2014 tablet documented as of this encounter Progress Notes Claudette Johnson - 02/03/2014 2:10 PM EDT I met with pt x 2 this a.m prior to her d/c home. She admits that she did not sleep well last night and when she finally took some pain med earlier this a.m the Surgeons arrived and woke her to tell her she could go home. She states she began to panic. I saw her first around 1100 and by that time she states she had calmed down a bit, as she has spoken with her , who is very level headed and got me to think realistically. I visited her for some time today, answering questions, going over paperwork, diet, hydration, pouch change, etc. She has been emptying her own pouch and the stool in the pouch this a.m. Is quite thick and mushy. Her Ileostomy output slowed by 500 cc yesterday compared with the day before without taking any medications (Immodium, Lomotil or Metamucil). I stressed the importance of eating well, particularly protein. She has 3 children at home, the youngest is 2 yrs old but in Preschool. She sounds like she has all in order for help at home. I did not change her pouch today as it had been yesterday, she does like the Coloplast with velcro closure. I packed her 4 more ofthis pouch, #[id number], and paperwork. We will f/u on 02/10 when she RTC to have her ezekiel out. I gave her I & O sheets along with her other paperwork. Luci Al RN - 02/03/2014 1:10 PM EDT Patient discharged to home w/ VNA. IV removed, site benign. My assessment remains unchanged from my previous assessment. Discussed pain management with patient, pain tolerable. Patient medicated prior to discharge. Patient has all belongings and supplies needed. Patient received AVS and prescriptions.These were reviewed, patient verbalizes understanding of AVS. All questions answered. Patient encouraged to call with questions or concerns. Patient discharged to home with friend. Report called to VNA. Claudette Johnsno - 02/03/2014 12:57 PM EDT Intake and Output for New Ileostomy Patients [facility] Division of Colon & Rectal Surgery Name: Intakes / Outputs Date in in in in out out out out out Food Liquid IV fluids TPN urine stool drain #1 drain #2 drain #3 7am 8am 9am 10am 11am 12pm 1pm 2pm 3pm 4pm 5pm 6pm 7pm 12 hour total 8pm 9pm 10pm 11pm 12am 1am 2am 3am 4am 5am 6am 7am 12 hour total 24 hour total Claudette Johnson - 02/03/2014 11:52 AM EDT Ileostomy/Colostomy Pouching: Disposable 1-piece pouch Name: Monique Melgar Type of Ostomy: Ileostomy Use this procedure as a guide when changing your appliance. Read all instructions, assemble all equipment, and empty contents from pouch before beginning actual change. If you have questions, do not hesitate to call Claudette Johnson RN CWOCN or Ana Kingsley RN [facility]OCN at [phone]. Equipment: Company/Order Numbers Wet and dry soft cloth (paper towels) Plastic bag Pen, Scissors, stoma pattern One-piece Pouch Coloplast #[id number] Protective powder Convatec #: [id number] Stomahesive Paste Convate #[id number] Non-allergic tape (4 strips) [employer] paper tape if necessary Liquid Deodorant [place] M9 #0099 Other Supplies (if any) Procedure: 1. Using pattern, trace stoma size on back of wafer and cut out tracing (Be careful not to cut pouch!). 1. Place wafer in a warm place to make it more pliable. 1. Remove old pouch and wafer from skin and discard in plastic bag, be sure to remove clamp from theold pouch. 1. Wash skin and stoma with warm water and pat skin dry. 1. Examine skin and stoma for any irritation. If skin irritation present, apply a dusting of Stomahesive protective powder. Peebles off excess powder, or wafer will not adhere. 1. Remove paper backing from wafer. 1. Apply a bead of Stomahesive paste around cut opening. 1. Apply pouch to skin being sure to center over stoma--angle pouch as desired. Press down firmly, first in center closest to stoma and then outer edges. You may remove paper backing from adhesive outer edges at this point. 1. Attach Clamp. 1. Picture frame (apply 1-piece of tape to each side of the wafer) with waterproof tape when showering, bathing or swimming (optional). Changing Schedule: Twice Weekly Always bring supplies needed for a pouch change when you come in for your clinic visits, or into thespital. Pharmacy or Medical Supply: [facility] DIVISION OF COLON AND RECTAL SURGERY High Ileostomy Output Patient Instructions: This content was designed for use in [facility] Division of Colon & Rectal Surgery Patients Only Patients with new ileostomies are especially prone to dehydration - the most common preventable cause of readmission to the hospital after you are discharged. Please take the following instructions seriously in order to avoid being re-admitted for dehydration. 1. If you are having >1.5 liters (about 6 1/2 cups or 50 ounces) per 24 hours of ileostomy output, then you are at increased risk of becoming dehydrated. 2. Dry mouth, dark urine or less than normal urine output, dizziness, or flu- like symptoms are some signs of dehydration. 3. Please re-hydrate yourself not with plain water (which can make dehydration worse by diluting thesalt in your body) but with coconut water, Pedialyte, or efca-olv-sgcrnzo Oral Rehydration Solutions(ORS) available from the pharmacy. 4. If you are having thin watery/loose stool then it needs to be thickened with diet ?? eat stool thickening foods such as the BRAT diet (soft Bananas, white Rice, Applesauce, [place]) aswell as cheese, creamy peanut butter, pasta, mashed potatoes. ?? take Metamucil one TABLESPOON in only 4 oz. of water two to three times per day to thicken your stool. ?? Drink most of your liquids between meals (not with meals) to maximize absorption of the food you eat. ?? Do not restrict salt in your diet, as sodium losses in ostomy output can be great. ?? Potato chips and Gatorade can help to thicken the stool and replace salt losses quickly. ?? Peeled pickles are another high salt food option to help prevent sodium losses in ostomy output. 5. If your stool becomes thicker but still >1.5L per 24 hours then start [id number] Imodiumto slow your stool down ?? Start with half a tablet 30 minutes before meals and at bedtime. ?? If this helps but not enough then increase to 1 tablet 30 minutes before meals and at bedtime. ?? If this helps but not enough then increase to 2 tablets 30 minutes before meals and at bedtime. 6. If you are still having high output then call your team (doctor or stoma nurse) at the hospital (as above). Remember do not take extended release pills or large pills which may cause a blockage. You may crushnon-extended release pills and take them with applesauce, yogurt, or pudding. Ileostomy Instructions: 2. Skin: The enzymes present in the ileostomy stool are very irritating to the skin. The longer the skin is exposed to these enzymes, the more irritated the skin will become. The pouch should be changed as soon as possible when a leak develops. The signs of leakage include burning or itching of the skin beneath the appliance or obvious visible leakage. Many of problems with skin care evolve from an improper pattern. You must always be sure the size opening cut in your pouch barrier is not more than 1/8 larger than your stoma. If skin becomes irritated, apply a light dusting of protective powder and brush excess off skin; seal this in with a barrier wipe, otherwise pouch will not adhere. If irritated skindoes not clear up in one week, call your ostomy nurse. 3. Odor: May indicate infrequent or improper cleansing of pouch, a soiled clamp, or a leaky pouch. Some odoris expected when emptying and rinsing your pouch. This can be neutralized by dropping a liquid deodorizer into your pouch--such as [place] M9 drops. Odor offenders in the food category are: beans, fish, cheese and eggs. Certain medications such as multivitamins or antibiotics can also cause odor. 4. Gas: Gas is a normal product of the intestine. However, excessive gas can be caused by chewing gum, drinking with a straw or drinking carbonated beverages. Other gas-causing foods: broccoli, cabbage, beans, onions, brussel sprouts, beer, cucumbers. 5. Diet: Chew foods well and drink fluids when eating. Try new foods one at a time to be sure that you can tolerate them. Fiber contained in food may cause a blockage in the stoma if chewing has not broken down the fiber. Some of these offenders are popcorn, nuts, mohawk vegetables, coconut, whole kernel corn, seeds, orange pulp, and the skins of fruit. If in doubt of a certain food, eat it in moderation and follow with extra fluid by mouth. 6. Food Blockage: If a blockage occurs, you may experience cramping in the abdomen, little or no stool output, nauseaor vomiting, or a large amount of liquid stool. If you think that a blockage has occurred, drink more fluids and withhold solid foods. A warm bath/shower may relieve the blockage as well. If symptons persist for more than few hours, Notify your doctor!!! He may ask you to come in to his clinic or the emergency room. 7. Dehydration: (See previous section on High Ileostomy Output) Dehydration can easily occur with the flu or normal perspiring on a hot day. Signs of dehydration include dry mouth, a feeling of weakness, muscle cramps in the legs, or decreased urine output. It's important to replace fluid if you have increased perspiration because of activity, heat or fever, or if you have increased diarrhea. Gatorade is a good fluid replacement since it contains sodium and potassium. Other suggested fluids to take include broths, Coke or 7- Up, and tea. If dehydration occurs because of diarrhea, eat bland foods that will also thicken the consistency of stool. These are applesauce, rice, cereals, bananas, peanut butter and breads. If you become dehydrated Call your Doctor!!!, he may want to order antidiarrheal medications. 8. Medications: It is important to remind all you doctors that you have an ileostomy. Some medications are coated with a thick shell and will not dissolve in the upper gastrointestinal tract. These may pass in entirety into the pouch. The same applies to time release medications. Neither of these will do you any good, they will just increase your pharmacy bill! Laxatives are not needed. Infact, they may cause harm by inducing diarrhea and dehydration. Maalox is a popular antacid which can cause diarrhea if it istaken with any frequency or in large amounts. The antacid Amphogel does not have a laxative effect. 9. Miscellaneous: You should measure your stoma weekly for the first month, then every other week for the second month. (This is when the greatest shrinkage of your stoma occurs.) Measure monthly thereafter. The skin barrier should fit exactly around the stoma or not greater than 1/8 larger. Always carry an extra clamp and skin barrier/pouch with you. Pt with Ileostomy/Colostomy When to call your cardboard inserter/ MD Change in Color: The stoma should always be pink or red in color. Should the color change to white, blue or black, medical notification is required. Bleeding: It is common and normal for the stoma to bleed minimally during gentle washing. Blood found in the pouch requires medical notification. Obstruction (ileostomies only): This situation, moist common with ileostomies, may be due to undigested or improperly chewed foods. Signs and symptoms include, no stool eliminated into the pouch for 6-12hrs, or excess amounts of watery diarrhea, abdominal pain or nausea or vomiting. If swelling of thestoma occurs, a large disposable pouch should be applied. Notify your harvesting contractor or MD. Prolapse: The term implies that the stoma now extends further from the skin surface than it did at discharge from the hospital. An increase of one inch or more requires medical notification. Pain may or may not accompany a prolapse. Retraction: This term implies that the bowel has slightly fallen back into the abdominal cavity. It may become flush with or recessed below the skin. A good seal with the pouch is difficult. Herniation: This term implies that the muscular area in which the stoma is sewn has lost its tone and the entire area, including skin and surrounding stoma now protrudes beyond the normal skin surface. Irritated Skin: Irritated skin can quickly worsen to a difficult to manage situation. Treat irritated skin as you have been taught. If it has not cleared up after one week call your ostomy nurse. Leaky Pouch: If you are having to change the pouch every other day or more frequently due to leakageit is reasonable for you to give your Ostomy Nurse a call. Juma Joshi, TRESTLE MAINTERNANCE LABORER - 02/03/2014 11:44 AM EDT Physical Therapy Treatment Note Visit #: 3 Patient Dx: Pt. is a 38 y.o. female admitted on 01/28/2014 by Deepthi Sotelo MD for 6 weeks of RLQ abdominal pain, n/v, diaphoresis, chills; worse after eating, loose stools (occasional small streaks of blood). Pain seemed to get worse and RA got better since switched medication regimen in December 2013. Symptoms started with viral enteritis and UTI, with 7d ciprofloxacin course. Recent CT on 01/28 showing new pneumatosis R colon (had normal CT on 01/04, C- diff neg). Last humira dose was Wednesday 01/24. She is s/p ex-lap (saw normal appearing colon), R hemicolectomy and end ileostomy on 01/29/14. Precautions: Log rolling for bed mobility. Staff communication/Mobility Recommendations: Ambulation with FWW for distances out of room close supervision, As tolerated. Interval History: Medically ready for d/c S: I've been writing everything down because the pain medication makes me loopy and I can't remember anything. O: Patient seen for 30 mins for ambulation, transfer, balance, stair ambulation, pt education to address goals. Pt demonstrated the following: Functional mobility: Supine><Sit with HOB up via log rolling technique x 3, independent. Sit><Stand from elevated bed and cardiac chair, independent. Gait: Pt ambulated ~ 300 ft with no assistive device, independent. Gait Pattern: Steady reciprocal gait Stair training: Pt ascended/descended 4 seven inch steps with one hand rail sideways with two hands on the railing, independent. Pain: 12/17. Education: Pt/family education ongoing for mobility, transfers, gait and safety. A: Pt was pleasant and eager to participate in PT this morning. Pt demonstrated increase tolerance and progress to functional bed mobility, transfers, gait and stair training. Pt has met hospital PT goals to home when medically ready for d/c. Physical Therapy Goals: To be achieved by discharge. 1. Pt. to demonstrate knowledge of precautions during functional activities. MET 2. Pt. to perform bed mobility with min assist with HOB flat. MET 3. Pt. to perform sit-stand transfers with supervision utilizing a rolling walker. MET 4. Pt. to ambulate 100 feet; with a rolling walker, and supervision.MET 5. Pt. to ambulate up/down 3 step/stairs with contact guard, using one railing. MET 6. Family or caregiver to demonstrate understanding of therapeutic interventions to support the careof the patient. Discharge Recommendations: Home with family support and VNA services. P: Pt has met hospital PT goals to home with family support and VNA services when medically ready for d/c. Total time spent with patient: 30 minutes Total timed interventions: 25 minutes TE-F Pager: [phone] JUMA JOSHI [facility] Physical Therapy Rehabilitation Department Melanie Meredith RN - 02/03/2014 10:38 AM EDT Care Management/ CRC pager# [phone]/ Discharge note S: I do feel ready to head home today. I had a visit with the ostomy nurse yesterday and then I met with Haydee yesterday. That was a help. Having home visits through [facility] will be a good plan. O: Met with patient this morning. Patient is POD# 6 exp lap, right colectomy with end colostomy. Referral in place to [facility] for home RN visits and ET RN Kimberly Keys visit. A/P: contract runner to call report to VNA and Discharge Summary to be faxed. Heide Townsend MD - 02/03/2014 6:42 AM EDT General Surgery Resident Inpatient Progress Note DOA: 01/28/2014 6 Diet: Fiber/Residue Restricted Code: Full Code Room: 313/313-A ID: Monique Melgar is a 38 y.o. female admitted 01/28 for 6 weeks of RLQ abdominal pain, n/v, diaphoresis, chills; worse after eating, loose stools (occasional small streaks of blood). Pain seemed to get worse and RA got better since switched medication regimen in December 2013. Symptoms started with viral enteritis and UTI, with 7d ciprofloxacin course. Recent CT on 01/28 showing new pneumatosis R colon (had normal CT on 01/04, C-diff neg). Last humira dose was Wednesday 01/24. She is s/p ex-lap (saw normal appearing colon), R hemicolectomy and end ileostomy on 01/29. Now 3 Days Post-Op PMH/PSH: RA, fibromyalgia, depression, anxiety Home Meds: Methotrexate 10mg weekly, Humira 40mg weekly, medrol taper, imitrex, zoloft, folic acid, zofran Hospital Course: HD#1- admitted as above. Lactate 4. Discussed with pt option of stopping humira and methotrexate while treating with antibiotics, versus surgery. Started IV antibiotics. Pt decided on surgery HD#2/POD#0- s/p R hemicolectomy with end ileostomy. Having some back pain and tolerable abdominal pain this morning. Planning on mobilizing with PT, ostomy nurse consult. Perioperative vancomycin/zosynto stop today. Novoa out if ambulating HD#3/POD#1: MIVF decreased, Novoa removed, NGT to gravity and possibly pulled, started on home steroid dose HD#4/POD#2: No acute events, minimal output from ostomy, steroid dose decreased to baseline dose HD# 5/POD#3: Ostomy output increasing Nausea without vomiting early in the AMNo acute events overnight HD#6/POD#4: Ostomy output increased (1.8L), no n/v, pain well controlled HD#7/POD#5 OStomy output thicker and decreased to 1.2L, tolerating diet, pain issues overnight afterPCA Dc'd, increased PO meds Meds: ??? acetaminophen 1,000 mg Oral 4 Times Daily ??? methylPREDNISolone 12 mg Oral Daily ??? sodium chloride 0.9 % 5 mL Intravenous BID ??? heparin (porcine) 5,000 Units Subcutaneous Q8H WILFRIDO ??? esomeprazole 40 mg Intravenous Daily Or ??? esomeprazole 40 mg Oral Daily ??? [DISCONTINUED] dextrose 5% and sodium chloride 0.45% with potassium chloride 20 mEq Stopped (02/02/141728) ??? [DISCONTINUED] HYDROmorphone Stopped (02/02/141728) ??? [DISCONTINUED] [employer] bishop oxyCODONE, [DISCONTINUED] oxyCODONE, promethazine, Vancomycin Level - MAR Order Reminder, ondansetron, [DISCONTINUED] diphenhydrAMINE, [DISCONTINUED] nalOXone, [DISCONTINUED] [employer] bishop, prochlorperazine,prochlorperazine O: Last value Range last 24hrs Temperature Temp: 36.8 ??C (98.2 ??F) Temp: [36.4 ??C (97.5 ??F)-37 ??C (98.6 ??F)] Heart Rate Heart Rate: 76 Heart Rate: [64-89] Blood Pressure BP: 127/62 mmHg BP: (112-128)/(60-87) Respiratory Rate Resp: 18 Resp: [16-18] SpO2 SpO2: 98 % SpO2: [98 %-100 %] Physical Exam: General: NAD, resting comfortably CVS: RRR Pulm: CTAB Abd: soft, appropriately tender. Midline dressing ezekiel in place c/d/i. Gas and stool in ostomy : voiding w/o difficulty Skin: warm, dry Neuro: nonfocal,moving all four extremities spontaneously Labs: Recent Labs Basename 02/03/146 02/02/146 02/01/14 032 WBC 12.2* 12.8* 12.4* HGB 10.9* 12.4 12.7 HCT 33.5* 37.9 38.4 PLATELET 225 230 184 No results found for this basename: PT,PTT,INR in the last 168 hours Recent Labs Basename 02/03/14 0326 02/02/14 0416 02/01/14 032 NA 136 136 137 K 3.3* 4.3 3.7 CL 100 101 98 CO2 25 24 27 BUN 17 13 12 CREATININE 0.73 0.72 0.62* Recent Labs Basename 02/03/14 0326 02/02/14 0416 02/01/14 0329 CALCIUM 9.0 9.2 9.2 MAGNESIUM 0.77 0.92 0.96 PHOS 3.3 4.6* 4.5 Recent Labs Basename 01/28/14 1905 AST 16 ALT 21 ALKPHOS 124* BILITOT 0.3 BILIDIR 0.1 AMYLASE -- LIPASE -- Recent Labs Basename 02/03/14 0326 GLUCOSE 85 NEW IMAGING: CT abd/pel 01/28: 1. Pneumatosis involving the cecum, ascending, and proximal transverse colon. While not associated with wall thickening or adjacent inflammatory changes and possibly related to corticosteroid use, thisfinding is concerning in the setting of recent onset of abdominal pain. CRITICAL FINDING. 2. No free air, small bowel pneumatosis, or evidence of vascular compromise. 3. Mild splenomegaly. ASSESSMENT: Monique Melgar is a 38 y.o. female with hx of steroid use and other immunosuppression for RA, presenting with 6 weeks of abdominal pain with new R colon pneumatosis on CT. S/p R hemicolectomy with ileostomy on 01/29. Now 5 Days Post-Op with return of bowel function yesterday. Tolerating diet, ostomy output thickening, pain better controlled after pO meds increased, ready for discharge. PLAN: NEURO: - PO pain meds CV: - HD stable, no active issues PULM: - Encourage IS 10x/hr FEK/: - low res diet - voiding adequately GI: - good ostomy output, thicker today, HEME: - HD stable, trend hgb ID: - afebrile, no abx ENDO: - Normoglycemia, home steroids RHEUM: - Last took humira on 01/24 hold for now; continue Medrol, restart MTX in 1-2 weeks PPX: -SCDs, SQH, Nexium DISPO: - Floor status, Full Code Denisa Centeno RN - 02/03/2014 2:59 AM EDT [employer] was taken down this afternoon, medicated with 10mg Oxycodone @2230. @0200, pt complained of increased pain to abdomen and lower back, MD made aware, Oxy increased to 15mg and changed to q3hrs. Willcontinue to monitor. Ana Kingsley RN - 02/02/2014 5:26 PM EDT I stopped back and told her that Haydee (ostomy resource who works here) is working today and tomorrow, if she wanted to meet. Monique wasn't sure she was ready, but asked me to pass on her contact information (name/ph/email) to Haydee. She also asked if she could have Haydee's email address to correspond and ask questions. I told her I would get Haydee's email address for her prior to discharge. Carmen Evans LD - 02/02/2014 3:32 PM EDT Nutrition Progress Note: S: Per pt: This is going to be a life style change. I need to loose weight and I need to get my RA under control. Plus I have young children and I try to provide them with good nutrition and they needto see me eat well too. Appetite: Getting better per pt O: Patient Active Problem List Diagnosis Code ??? Rheumatoid arthritis 714.0 ??? Anxiety 300.00 ??? Depression 311 ??? AMA (advanced maternal age) multigravida 35+ 659.60 ??? Obesity 278.00 ??? 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 Rheumatoid arthritis(714.0) ??? Depression ??? Anxiety ??? Fibromyalgia Diet: Low Fiber Height: 154.9 cm Admit Weight: 88.9 kg BMI: 37.1 Labs: Phos: 4.6 Medications: Nexium, Compazine, others noted A: RD consulted for pt with new ileotomy on a low fiber diet. Provided low fiber diet education and reviewed generally guidelines for eating with an ileostomy. Pt asked good questions which I answered for her. Encouraged decaf fluids and lightly salting foods. Suggested adding back in higher fiber foods one at a time and monitoring tolerance once she adjust to ileostomy. Handouts and means of contactfor future reference provided. P: 1. Low fiber and eating with an ileostomy diet education and handouts provided. 2. Nutrition to follow up in one week, unless consulted sooner. Beni Madera II, DO - 02/02/2014 12:57 PM EDT Rheumatology Fellow Inpatient Follow up Note Reason for initial consult: Pt with RA, admitted with abdominal pneumotosis. We were asked to assistwith medication management with regards to her RA in the setting of an active infection. Interval Hx: - pt maintained on medrol 12mg po daily ROS: Monique reports that her joints feel great, and overall she is feeling much better today. She is eating, abd pain has diminished, she is ambulating and is producing stool in the ostomy. Medications: reviewed Physical Exam: Temp: [36.4 ??C (97.5 ??F)-37.1 ??C (98.8 ??F)] Heart Rate: [64-104] Resp: [16-18] BP: (112-126)/(60-87) SpO2: [93 %-100 %] General: Appears comfortable eating lunch, sitting in a chair, in NAD HEENT: anicteric Cardiovascular: RRR, (-)murmurs, rubs, or gallops. Lungs: Clear to auscultation bilaterally. (-)R/R/W Abdomen: Part of incision observed and appeared intact (ezekiel in place). 1+BS. Neuro: Alert and oriented Extremities Elbows:FROM, (-)pain, (-)nodules Wrists: FROM, no swelling, non-tender Hands: No synovitis, no MCP compression tenderness, full fist Knees: (-)large effusions Labs: CBC Lab Results Component Value Date WBC 12.8* 02/02/2014 Hemoglobin 12.4 02/02/2014 Hematocrit 37.9 02/02/2014 Platelets 230 02/02/2014 Assessment: Monique Melgar is a 38 y.o. female with seropositive RA admitted with colonic pneumotosis. Overallthe patient appears to be improving. Her arthritis symptoms are currently well-controlled on the medrol 12mg po daily. We discussed with her the possibility of adjusting the dose of medrol when she gets home - to alternate taking 12mg and 8mg daily (every other day). She agreed to this plan. 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 Valerio within 1-2 weeks of discharge. Plan: - continue medrol 12mg po daily while an inpatient - upon discharge would decrease to alternating doses of 12mg daily and 8mg daily (discussed with thepatient) - we will arrange for f/u with Dr. Valerio within 1-2 weeks - please call us with any questions or concerns, we will sign off for now. Patient seen and discussed with Dr. Madera Rheumatology Staff Addendum I have seen and examined the patient, with Dr. Martinez. I have reviewed the Fellow???s above note; my evaluation of the patient is below: 38 y/o F with seropositive RA s/p hemicolectomy for colonic pneumotosis. She is improving from her surgery and has no synovitis on exam which has been difficult to control in the past. We recommended continuing on medrol 12 mg daily for now, and upon discharge could alternate 8mg and 12mg in an effortto gradually decrease her steroids. She will have close follow up with Dr. Valerio. Beni Madera DO, MPH Rheumatology Ana Kingsley RN - 02/02/2014 12:48 PM EDT I met with pt this morning for ostomy teaching. She is emptying independently, but had a lot of questions. She emptied with me, first, and did not have any problems. We then changed the pouch. She watched today, but I do not anticipate she will have difficulties doing this herself. She said she is very independent. She has 3 children, a 13 y/o boy (just had his birthday yesterday!), 10 y/o girl, and 2 y/o son. She said her is very supportive, but said she is worried as it is a lot for him with her in the hospital. Her stoma is flush, but pink and viable. She had some mild irritation of her peristomal skin that I treated with stomahesive powder and no-sting skin prep. I applied a Coloplast 1 pc pouch (flat) with an Fany seal molded to the back. She may need convexity in the future, but herstoma is close to her incision, so the flat pouches are easier to off center. I had her practice emptying with the velcro. She said this may be easier for her for when her RA flares as her dexterity becomes limited. We discussed intimacy, lifestyle adjustments, basic ostomy care, diet and dehydration.She asked excellent questions and took notes. She was teary at times and said this was a bit overwhelming. I offered for her to talk with another patient of ours who works on [email or web address] who has offered to meetwith [employer]. SHe is very interested in this and I will check back with her to see if she would like me to set this up. She said she is very outgoing and would love to have someone she could ask questions to. We will continue to follow. ENT Declan Graham MD - 02/02/2014 11:12 AM EDT SURGERY ATTENDING SUBSEQUENT HOSPITAL CARE Monique Melgar is a 38 y.o. female with the following issues: Active Problems / Surgery Past Medical History Patient Active Problem List Diagnosis Code ??? Rheumatoid arthritis 714.0 ??? Anxiety 300.00 ??? Depression 311 ??? AMA (advanced maternal age) multigravida 35+ 659.60 ??? Obesity 278.00 ??? 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 Rheumatoid arthritis(714.0) ??? Depression ??? Anxiety ??? Fibromyalgia Temp: [36.4 ??C (97.5 ??F)-37.1 ??C (98.8 ??F)] Heart Rate: [64-104] Resp: [16-18] BP: (112-126)/(60-87) SpO2: [93 %-100 %] Intake/Output Summary (Last 24 hours) at 02/02/14 1112 Last data filed at 02/02/14 0941 Gross per 24 hour Intake 2918.8 ml Output 2750 ml Net 168.8 ml No new complaints Large volume of ileostomy output Lab Results Component Value Date NA 136 02/02/2014 Lab Results Component Value Date K 4.3 02/02/2014 Lab Results Component Value Date WBC 12.8* 02/02/2014 RBC 4.61 02/02/2014 HGB 12.4 02/02/2014 HCT 37.9 02/02/2014 MCV 82.2 02/02/2014 MCH 26.9 02/02/2014 MCHC 32.7 02/02/2014 PLATELET 230 02/02/2014 RDWCV 16.4* 02/02/2014 Lab Results Component Value Date BUN 13 02/02/2014 CREATININE 0.72 02/02/2014 . Assessment: Satisfactory post op course - at risk for volume/electrolyte depletion. [] This patient will continue to need inpatient services for the next two days. Plan: [continue IVF for now until PO intake is sufficient.] [x] I saw and evaluated the patient. I reviewed Dr. Townsend[]'s note and agree with the findings andplans as documented. Heide Townsend MD - 02/02/2014 7:42 AM EDT General Surgery Resident Inpatient Progress Note DOA: 01/28/2014 5 Diet: Fiber/Residue Restricted Code: Full Code Room: 313/313-A ID: Monique Melgar is a 38 y.o. female admitted 01/28 for 6 weeks of RLQ abdominal pain, n/v, diaphoresis, chills; worse after eating, loose stools (occasional small streaks of blood). Pain seemed to get worse and RA got better since switched medication regimen in December 2013. Symptoms started with viral enteritis and UTI, with 7d ciprofloxacin course. Recent CT on 01/28 showing new pneumatosis R colon (had normal CT on 01/04, C-diff neg). Last humira dose was Wednesday 01/24. She is s/p ex-lap (saw normal appearing colon), R hemicolectomy and end ileostomy on 01/29. Now 3 Days Post-Op PMH/PSH: RA, fibromyalgia, depression, anxiety Home Meds: Methotrexate 10mg weekly, Humira 40mg weekly, medrol taper, imitrex, zoloft, folic acid, zofran Hospital Course: HD#1- admitted as above. Lactate 4. Discussed with pt option of stopping humira and methotrexate while treating with antibiotics, versus surgery. Started IV antibiotics. Pt decided on surgery HD#2/POD#0- s/p R hemicolectomy with end ileostomy. Having some back pain and tolerable abdominal pain this morning. Planning on mobilizing with PT, ostomy nurse consult. Perioperative vancomycin/zosynto stop today. Novoa out if ambulating HD#3/POD#1: MIVF decreased, Novoa removed, NGT to gravity and possibly pulled, started on home steroid dose HD#4/POD#2: No acute events, minimal output from ostomy, steroid dose decreased to baseline dose HD# 5/POD#3: Ostomy output increasing Nausea without vomiting early in the AMNo acute events overnight HD#6/POD#4: Ostomy output increased (1.8L), no n/v, pain well controlled Meds: ??? acetaminophen 1,000 mg Oral 4 Times Daily ??? methylPREDNISolone 12 mg Oral Daily ??? sodium chloride 0.9 % 5 mL Intravenous BID ??? heparin (porcine) 5,000 Units Subcutaneous Q8H WILFRIDO ??? esomeprazole 40 mg Intravenous Daily Or ??? esomeprazole 40 mg Oral Daily ??? dextrose 5% and sodium chloride 0.45% with potassium chloride 20 mEq 50 mL/hr (02/01/142156) ??? HYDROmorphone ??? [employer] bishop promethazine, Vancomycin Level - MAR Order Reminder, ondansetron, diphenhydrAMINE, nalOXone, [employer] bishop, prochlorperazine, prochlorperazine O: Last value Range last 24hrs Temperature Temp: 37 ??C (98.6 ??F) Temp: [36.4 ??C (97.5 ??F)-37.1 ??C (98.8 ??F)] Heart Rate Heart Rate: 81 Heart Rate: [64-104] Blood Pressure BP: 112/60 mmHg BP: (112-126)/(60-87) Respiratory Rate Resp: 16 Resp: [16-18] SpO2 SpO2: 100 % SpO2: [93 %-100 %] Date 02/02/14 07 - 02/03/14 0659 Shift 1136-8058 2813-2091 1268-0795 24 Hour Total I N T A K E P.O. 240 240 Shift Total (mL/kg) 240 (2.7) 240 (2.7) O U T P U T Urine (mL/kg/hr) 700 700 Stool 750 750 Shift Total (mL/kg) 1450 (16.3) 1450 (16.3) Weight (kg) 88.9 88.9 88.9 88.9 Physical Exam: General: NAD, resting comfortably CVS: RRR Pulm: CTAB Abd: soft, appropriately tender. Midline dressing ezekiel in place c/d/i. Gas and stool in ostomy : voiding w/o difficulty Skin: warm, dry Neuro: nonfocal,moving all four extremities spontaneously Labs: Recent Labs Basename 02/02/1441502/01/1432801/31/14 0409 WBC 12.8* 12.4* 11.0* HGB 12.4 12.7 10.3* HCT 37.9 38.4 32.7* PLATELET 230 184 157 No results found for this basename: PT,PTT,INR in the last 168 hours Recent Labs Basename 02/02/1441502/01/1432801/31/14 0409 NA 136 137 136 K 4.3 3.7 3.8 CL 101 98 98 CO2 24 27 31 BUN 13 12 18 CREATININE 0.72 0.62* 0.64* Recent Labs Basename 02/02/1441502/01/1432801/31/14 0409 CALCIUM 9.2 9.2 8.9 MAGNESIUM 0.92 0.96 0.98 PHOS 4.6* 4.5 3.4 Recent Labs Basename 01/28/14 1905 AST 16 ALT 21 ALKPHOS 124* BILITOT 0.3 BILIDIR 0.1 AMYLASE -- LIPASE -- Recent Labs Basename 02/02/14 0416 GLUCOSE 104 NEW IMAGING: CT abd/pel 01/28: 1. Pneumatosis involving the cecum, ascending, and proximal transverse colon. While not associated with wall thickening or adjacent inflammatory changes and possibly related to corticosteroid use, thisfinding is concerning in the setting of recent onset of abdominal pain. CRITICAL FINDING. 2. No free air, small bowel pneumatosis, or evidence of vascular compromise. 3. Mild splenomegaly. ASSESSMENT: Monique Melgar is a 38 y.o. female with hx of steroid use and other immunosuppression for RA, presenting with 6 weeks of abdominal pain with new R colon pneumatosis on CT. S/p R hemicolectomy with ileostomy on 01/29. Now 4 Days Post-Op with return of bowel function yesterday. Will advancediet, HLIV if tolerates. PLAN: NEURO: - Pain well controlled continue with [employer], IV Tylenol, transition to PO pain meds and DC [employer] later ifpain controlled CV: - HD stable, no active issues PULM: - Encourage IS 10x/hr FEK/: - MIVF @ 50cc/hr HLIV later today - voiding adequately GI: - good ostomy output, will monitor output and start stool thickening agent if needed HEME: - HD stable, trend hgb ID: - afebrile, no abx ENDO: - Normoglycemia, home steroids RHEUM: - Last took humira on 01/24 hold for now; continue Medrol, restart MTX in 1-2 weeks PPX: -SCDs, SQH, Nexium DISPO: - Floor status, Full Code Luci Al RN - 02/01/2014 3:54 PM EDT I assumed care of this pt from [id number]. Assessment remains unchanged from previous RN. Pt sitting in bed, comfortable, no needs at this time. Will continue to monitor. Lawrence Benites MD - 02/01/2014 8:52 AM EDT General Surgery Resident Inpatient Progress Note ID: Monique Melgar is a 38 y.o. female admitted 01/28 for 6 weeks of RLQ abdominal pain, n/v, diaphoresis, chills; worse after eating, loose stools (occasional small streaks of blood). Pain seemed to get worse and RA got better since switched medication regimen in December 2013. Symptoms started with viral enteritis and UTI, with 7d ciprofloxacin course. Recent CT on 01/28 showing new pneumatosis R colon (had normal CT on 01/04, C-diff neg). Last humira dose was Wednesday 01/24. She is s/p ex-lap (saw normal appearing colon), R hemicolectomy and end ileostomy on 01/29. Now 4 Days Post-Op PMH/PSH: RA, fibromyalgia, depression, anxiety Home Meds: Methotrexate 10mg weekly, Humira 40mg weekly, medrol taper, imitrex, zoloft, folic acid, zofran Hospital Course: HD#1- admitted as above. Lactate 4. Discussed with pt option of stopping humira and methotrexate while treating with antibiotics, versus surgery. Started IV antibiotics. Pt decided on surgery HD#2/POD#0- s/p R hemicolectomy with end ileostomy. Having some back pain and tolerable abdominal pain this morning. Planning on mobilizing with PT, ostomy nurse consult. Perioperative vancomycin/zosynto stop today. Novoa out if ambulating HD#3/POD#1: MIVF decreased, Novoa removed, NGT to gravity and possibly pulled, started on home steroid dose HD#4/POD#2: No acute events, minimal output from ostomy, steroid dose decreased to baseline dose 24hr events: ?? Ostomy output increasing ?? Nausea without vomiting early in the AM ?? No acute events overnight Subjective: No major complaints, denies N/V, minimal output from stoma, pain controlled. O: Last value Range last 24hrs Temperature Temp: 36.7 ??C (98.1 ??F) Temp: [36.4 ??C (97.5 ??F)-37.4 ??C (99.3 ??F)] Heart Rate Heart Rate: 73 Heart Rate: [63-75] Blood Pressure BP: 123/68 mmHg BP: (123-141)/(68-87) Respiratory Rate Resp: 16 Resp: [16-18] SpO2 SpO2: 99 % SpO2: [98 %-99 %] 01/31 0701 - 02/01 0700 In: 1950 [P.O.:1320; I.V.:630] Out: 4750 [Urine:2450] Physical Exam: General: NAD, resting comfortably CVS: RRR Pulm: CTAB Abd: soft, appropriately tender. Midline dressing ezekiel in place c/d/i. Enteric output in ostomy, minimal flatus. : voiding w/o difficulty Skin: warm, dry Neuro: nonfocal,moving all four extremities spontaneously LABS: Recent Labs Basename 02/01/14 0329 01/31/14 0409 01/30/14 0350 WBC 12.4* 11.0* 15.9* HGB 12.7 10.3* 11.9 HCT 38.4 32.7* 36.8 PLATELET 184 157 210 PT -- -- -- INR -- -- -- PTT -- -- -- Recent Labs Basename 02/01/14 0329 01/31/14 0409 01/30/14 0350 NA 137 136 138 K 3.7 3.8 4.2 CL 98 98 99 CO2 27 31 25 BUN 12 18 12 CREATININE 0.62* 0.64* 0.68* GLUCOSE 98 92 128 CALCIUM 9.2 8.9 9.2 MAGNESIUM 0.96 0.98 0.90 PHOS 4.5 3.4 3.5 NEW IMAGING: CT abd/pel 01/28: 1. Pneumatosis involving the cecum, ascending, and proximal transverse colon. While not associated with wall thickening or adjacent inflammatory changes and possibly related to corticosteroid use, thisfinding is concerning in the setting of recent onset of abdominal pain. CRITICAL FINDING. 2. No free air, small bowel pneumatosis, or evidence of vascular compromise. 3. Mild splenomegaly. ASSESSMENT: Monique Melgar is a 38 y.o. female with hx of steroid use and other immunosuppression for RA, presenting with 6 weeks of abdominal pain with new R colon pneumatosis on CT. S/p R hemicolectomy with ileostomy on 01/29. Now 4 Days Post-Op Awaiting return of bowel function. PLAN: NEURO: - Pain well controlled continue with [employer], IV Tylenol CV: - HD stable, no active issues PULM: - Encourage IS 10x/hr FEK/: - MIVF @ 50cc/hr - Discontinue Novoa today GI: - Plan for NGT gravity trial, can discontinue if < 150 cc out after hooking back to suction, canthen advance to clears as tolerated HEME: - HD stable, trend hgb ID: - Perioperative vanc/zosyn completed, no active issues ENDO: - Normoglycemia, plan to start on home steroid dose RHEUM: - Last took humira on 01/24; continue Medrol, Full consultation for rheumatology pending. PPX: -SCDs, SQH, Nexium DISPO: - Floor status, Full Code LAWRENCE BENITES MD Carmen Evans LD - 02/01/2014 8:42 AM EDT Nutrition NPO Note: S/O: Dx: s/p R Hemicolectomy with ileostomy Diet: NPO/Clera Liquids x 5 days Height: 154.9 cm Weight: 88.9 kg BMI: 37.1 A/P: Pt has been NPO and/or on clear liquids x 5 days. If diet can not be advanced over the next 48 - 72 hours, recommend nutrition support if consistent with goals of care. Once feasible to advanced diet, recommend low fiber. Nutrition to follow throughout hospital stay. Barbara Tao PTA - 01/31/2014 3:34 PM EDT Physical Therapy Treatment Note Visit #: 2 Patient Dx: Pt. is a 38 y.o. female admitted on 01/28/2014 by Deepthi Sotelo MD for 6 weeks of RLQ abdominal pain, n/v, diaphoresis, chills; worse after eating, loose stools (occasional small streaks of blood). Pain seemed to get worse and RA got better since switched medication regimen in December 2013. Symptoms started with viral enteritis and UTI, with 7d ciprofloxacin course. Recent CT on 01/28 showing new pneumatosis R colon (had normal CT on 01/04, C- diff neg). Last humira dose was Wednesday 01/24. She is s/p ex-lap (saw normal appearing colon), R hemicolectomy and end ileostomy on 01/29/14. Precautions: Fall risk, back pain, [employer] Staff communication/Mobility Recommendations: Ambulation with FWW for distances out of room close supervision, As tolerated. Interval History: d/c novoa and increases Ind with ostomy S: I am moving better, my pain still problematic. O: Patient seen for 23 mins for ambulation, transfer, balance, stair ambulation, pt education to address goals. Pt demonstrated the following: ?? Supine to sit with HOB 50 degrees (pt understands she need to work on OOB with HOB flat.) Pt ableto perform with heavy use on railing with supervision. ?? Sit to stand with supervision ?? Ambulation with FWW 150 feet with close supervision. ?? Up and down 4 stairs with 2 railings with close supervision, step too pattern. ?? Pt ed:re uses/demo of log roll technique to get OOB, pt will practice. ?? Needed [employer] pump at end of session. Ind in room without AD, Steady gait. Pain: 8/10 end of session Education: Pt/family education ongoing for mobility, transfers, gait and safety. A: Improved ambulation distance, still requires AD for distance for energy conservation. Able to perform stairs balance good. Difficulties with supine to sit with HOB flat, will continue to work on this.Pt will benefit from ongoing therapeutic interventions to achieve therapy goals Physical Therapy Goals: To be achieved by discharge. 1. Pt. to demonstrate knowledge of precautions during functional activities. 2. Pt. to perform bed mobility with min assist with HOB flat. 3. Pt. to perform sit-stand transfers with supervision utilizing a rolling walker. MET 4. Pt. to ambulate 100 feet; with a rolling walker, and supervision.MET 5. Pt. to ambulate up/down 3 step/stairs with contact guard, using one railing. 6. Family or caregiver to demonstrate understanding of therapeutic interventions to support the careof the patient. Discharge Recommendations: Anticipate pt will be safe to go home with family P: Cont per POC as outlined on 01/29/14. Total time spent with patient: 23 minutes Total timed interventions: 23 minutes TE-F/GT Pager: [phone] BARBAR[employer] Physical Therapy Rehabilitation Department Edmond Patiño MD - 01/31/2014 12:15 PM EDT General Surgery Resident Inpatient Progress Note ID: Monique Melgar is a 38 y.o. female admitted 01/28 for 6 weeks of RLQ abdominal pain, n/v, diaphoresis, chills; worse after eating, loose stools (occasional small streaks of blood). Pain seemed to get worse and RA got better since switched medication regimen in December 2013. Symptoms started with viral enteritis and UTI, with 7d ciprofloxacin course. Recent CT on 01/28 showing new pneumatosis R colon (had normal CT on 01/04, C-diff neg). Last humira dose was Wednesday 01/24. She is s/p ex-lap (saw normal appearing colon), R hemicolectomy and end ileostomy on 01/29. Now 3 Days Post-Op PMH/PSH: RA, fibromyalgia, depression, anxiety Home Meds: Methotrexate 10mg weekly, Humira 40mg weekly, medrol taper, imitrex, zoloft, folic acid, zofran Hospital Course: HD#1- admitted as above. Lactate 4. Discussed with pt option of stopping humira and methotrexate while treating with antibiotics, versus surgery. Started IV antibiotics. Pt decided on surgery HD#2/POD#0- s/p R hemicolectomy with end ileostomy. Having some back pain and tolerable abdominal pain this morning. Planning on mobilizing with PT, ostomy nurse consult. Perioperative vancomycin/zosynto stop today. Novoa out if ambulating HD#3/POD#1: MIVF decreased, Novoa removed, NGT to gravity and possibly pulled, started on home steroid dose HD#4/POD#2: No acute events, minimal output from ostomy, steroid dose decreased to baseline dose 24hr events: ?? No acute events overnight Subjective: No major complaints, denies N/V, minimal output from stoma, pain controlled. O: Last value Range last 24hrs Temperature Temp: 36.4 ??C (97.5 ??F) Temp: [36.4 ??C (97.5 ??F)-36.8 ??C (98.2 ??F)] Heart Rate Heart Rate: 63 Heart Rate: [63-75] Blood Pressure BP: 128/79 mmHg BP: (127-145)/(64-91) Respiratory Rate Resp: 16 Resp: [16-18] SpO2 SpO2: 98 % SpO2: [95 %-100 %] 01/30 0701 - 01/31 0700 In: 1391 [I.V.:1391] Out: 2250 [Urine:2200] Physical Exam: General: NAD, resting comfortably CVS: RRR Pulm: CTAB Abd: soft, appropriately tender. Midline dressing with mild serosang shadowing. Minimal bilious output in ostomy, minimal flatus. : voiding w/o difficulty Skin: warm, dry Neuro: nonfocal,moving all four extremities spontaneously LABS: Recent Labs Basename 01/31/14 0409 01/30/14 0350 01/28/14 1905 WBC 11.0* 15.9* 15.1* HGB 10.3* 11.9 14.0 HCT 32.7* 36.8 42.8 PLATELET 157 210 218 PT -- -- -- INR -- -- -- PTT -- -- -- Recent Labs Basename 01/31/14 0409 01/30/14 0350 01/28/14 1905 NA 136 138 137 K 3.8 4.2 4.0 CL 98 99 100 CO2 31 25 22 BUN 18 12 17 CREATININE 0.64* 0.68* 0.87 GLUCOSE 92 128 125 CALCIUM 8.9 9.2 -- MAGNESIUM 0.98 0.90 -- PHOS 3.4 3.5 -- NEW IMAGING: CT abd/pel 01/28: 1. Pneumatosis involving the cecum, ascending, and proximal transverse colon. While not associated with wall thickening or adjacent inflammatory changes and possibly related to corticosteroid use, thisfinding is concerning in the setting of recent onset of abdominal pain. CRITICAL FINDING. 2. No free air, small bowel pneumatosis, or evidence of vascular compromise. 3. Mild splenomegaly. ASSESSMENT: Monique Melgar is a 38 y.o. female with hx of steroid use and other immunosuppression for RA, presenting with 6 weeks of abdominal pain with new R colon pneumatosis on CT. S/p R hemicolectomy with ileostomy on 01/29. Now 3 Days Post-Op Awaiting return of bowel function. PLAN: NEURO: - Pain well controlled continue with [employer], IV Tylenol x 4 doses CV: - HD stable, no active issues PULM: - Encourage IS 10x/hr FEK/: - MIVF @ 50cc/hr - Discontinue Novoa today GI: - Plan for NGT gravity trial, can discontinue if < 150 cc out after hooking back to suction, canthen advance to clears as tolerated HEME: - HD stable, trend hgb ID: - Perioperative vanc/zosyn completed, no active issues ENDO: - Normoglycemia, plan to start on home steroid dose RHEUM: - Last took humira on 01/24; will create plan for restart of immunosuppressants - will discuss with rheumatology. PPX: -SCDs, SQH, Nexium DISPO: - Floor status, Full Code EDMOND PATIÑO MD Luis Hinkle - 01/30/2014 10:09 AM EDT General Surgery Resident Inpatient Progress Note ID: Monique Melgar is a 38 y.o. female admitted 01/28 for 6 weeks of RLQ abdominal pain, n/v, diaphoresis, chills; worse after eating, loose stools (occasional small streaks of blood). Pain seemed to get worse and RA got better since switched medication regimen in December 2013. Symptoms started with viral enteritis and UTI, with 7d ciprofloxacin course. Recent CT on 01/28 showing new pneumatosis R colon (had normal CT on 01/04, C-diff neg). Last humira dose was Wednesday 01/24. She is s/p ex-lap (saw normal appearing colon), R hemicolectomy and end ileostomy on 01/29. Now 2 Days Post-Op PMH/PSH: RA, fibromyalgia, depression, anxiety Home Meds: Methotrexate 10mg weekly, Humira 40mg weekly, medrol taper, imitrex, zoloft, folic acid, zofran Hospital Course: HD#1- admitted as above. Lactate 4. Discussed with pt option of stopping humira and methotrexate while treating with antibiotics, versus surgery. Started IV antibiotics. Pt decided on surgery HD#2/POD#0- s/p R hemicolectomy with end ileostomy. Having some back pain and tolerable abdominal pain this morning. Planning on mobilizing with PT, ostomy nurse consult. Perioperative vancomycin/zosynto stop today. Novoa out if ambulating HD#3/POD#1: MIVF decreased, Novoa removed, NGT to gravity and possibly pulled, started on home steroid dose 24hr events: ?? No acute events overnight Subjective: No major complaints, denies N/V, ostomy working, pain well controlled, denies CP, SOB, ambulating O: Last value Range last 24hrs Temperature Temp: 36.3 ??C (97.3 ??F) Temp: [36.3 ??C (97.3 ??F)-37.1 ??C (98.8 ??F)] Heart Rate Heart Rate: 67 Heart Rate: [63-84] Blood Pressure BP: 146/77 mmHg BP: (103-154)/(53-84) Respiratory Rate Resp: 16 Resp: [14-20] SpO2 SpO2: 96 % SpO2: [96 %-98 %] 01/29 0701 - 01/30 0700 In: 958 [I.V.:958] Out: 2925 [Urine:2825] Physical Exam: General: NAD, resting comfortably CVS: RRR Pulm: CTAB Abd: soft, appropriately tender. Midline dressing with mild serosang shadowing. Brown stool in ostomy. : Novoa in place Skin: warm, dry Neuro: nonfocal,moving all four extremities spontaneously LABS: Recent Labs Basename 01/30/14 0350 01/28/14 1905 WBC 15.9* 15.1* HGB 11.9 14.0 HCT 36.8 42.8 PLATELET 210 218 PT -- -- INR -- -- PTT -- -- Recent Labs Basename 01/30/14 0350 01/28/14 1905 NA 138 137 K 4.2 4.0 CL 99 100 CO2 25 22 BUN 12 17 CREATININE 0.68* 0.87 GLUCOSE 128 125 CALCIUM 9.2 -- MAGNESIUM 0.90 -- PHOS 3.5 -- NEW IMAGING: CT abd/pel 01/28: 1. Pneumatosis involving the cecum, ascending, and proximal transverse colon. While not associated with wall thickening or adjacent inflammatory changes and possibly related to corticosteroid use, thisfinding is concerning in the setting of recent onset of abdominal pain. CRITICAL FINDING. 2. No free air, small bowel pneumatosis, or evidence of vascular compromise. 3. Mild splenomegaly. ASSESSMENT: Monique Melgar is a 38 y.o. female with hx of steroid use and other immunosuppression for RA, presenting with 6 weeks of abdominal pain with new R colon pneumatosis on CT. S/p R hemicolectomy with ileostomy on 01/29. Now 2 Days Post-Op PLAN: NEURO: - Pain well controlled continue with [employer], IV Tylenol x 4 doses CV: - HD stable, no active issues PULM: - Encourage IS 10x/hr FEK/: - MIVF @ 50cc/hr - Discontinue Novoa today GI: - Plan for NGT gravity trial, can discontinue if < 150 cc out after hooking back to suction, canthen advance to clears as tolerated HEME: - HD stable, trend hgb ID: - Perioperative vanc/zosyn completed, no active issues ENDO: - Normoglycemia, plan to start on home steroid dose RHEUM: - Last took humira on 01/24; will create plan for restart of immunosuppressants though anastamosis leak risk is worrisome PPX: -SCDs, SQH, Nexium DISPO: - Floor status, Full Code LUIS HINKLE MD Claudette Johnson - 01/29/2014 1:00 PM EDT Inpatient post op note Diagnosis: pneumatosis Surgery/Date: Procedure(s) (LRB): @EXPLORATORY LAPAROTOMY, WITH/WITHOUT BIOPSY(S) (N/A) HEMICOLECTOMY, WITH ILEOSTOMY (Right) Appliance: Activelife with paste Changed: [x} Yes Stoma:red and viable, just about flush to abd, RLQ, small diameter, 1 09/16 Peristomal Skin:intact Teaching:Pt is less than 12 hrs post op but was anxious to see cardboard inserter and family was in as well. Given it is a 3 day weekend I decided to change her Ileostomy pouch as I wanted to assess her stoma and skin. Pt tolerated well though she did use her [employer] during the change. She was sitting in the chairwhen I arrived but had just asked to get back to bed. I helped her back and then began teaching. Shewas not too interested today, understandably, was quite groggy. Her and 2 older children (Madina 10, Heide 13) were here with her, their youngest son, Allen (2) is at home at Daycare. I did some teaching with her , Giuliano, and the children. Pt was listening, she told me. I reviewed A & P, surgical procedure and general lifestyle implications with an Ileostomy first. I then changed her pouch, being careful to remove, using adhesive remover. I applied a new one piece Activelife pouch, off centered away from her stapled and dressed midline incision. I left supplies at bedside and gave her the Ileostomy booklet and Ostomy Resource and High Ileostomy output papers to read. We will follow on Saturday. Family Present: [x} Yes Family Member Present: and 2 older children (10 and 13) Psychosocial Acceptance: anxious in this early post op stage. Melanie Meredith RN - 01/29/2014 11:26 AM EDT Care Management/ CRC Pager# [phone] assisting Giuliano Nixon RN/ Assessment and Initial discharge planning S: Coming back later would be fine so I can talk with my family. O: Met briefly this morning. Patient's Abdiel, daughter Madina and son Heide in visiting. Notes reviewed. Patient and family reside in [facility]. Patient has [employer] H[employer] POS insurance.No Advance Directives on file here at [facility]. Patient admitted through [facility] ED with abdominal pain, nausea. CT scan revealed pneumatosis. Patient is now POD # 1 exp lap, right colectomy with end ileostomy. Discussion with Enterostomal therapist Claudette Johnson RN. Patient is NPO except meds, NGT to LCWS. IVF at 100/hr. Hydromorphone [employer]. Solumedrol 50mg IV q8hr. Zosyn IV q8hr [id number], Vancomycin IV q12hr [id number]. Novoa to gravity. Ileostomy pouch intact. PatientOOB with assistance. PT consult. 99% on 2.5liter oxygen via steward/stewardess second. A: Patient progressing post-op. Supportive family. P: I will continue in CRC role, following patient's in-hospital course, offering support to patient/family, coordinating discharge planning when appropriate. Addendum at 1500: S: Getting a referral in to [facility] for home RN visits and Ostomy Specialist RN visitswould be great. Thanks for your help. O: Met with patent this afternoon. Message to Rivet Driver for referral to [facility]. Care Management note for MD Discharge Summary (with VNA information) completed and pended by conventional underwriter. A/P: Continue in CRC role. At time of patient's discharge, social staff worker to call report to [facility] and MD Discharge Summary to be faxed. Ra Villegas - 01/29/2014 10:12 AM EDT General Surgery Resident Inpatient Progress Note ID: Monique Melgar is a 38 y.o. female admitted 01/28 for 6 weeks of RLQ abdominal pain, n/v, diaphoresis, chills; worse after eating, loose stools (occasional small streaks of blood). Pain seemed to get worse and RA got better since switched medication regimen in December 2013. Symptoms started with viral enteritis and UTI, with 7d ciprofloxacin course. Recent CT on 01/28 showing new pneumatosis R colon (had normal CT on 01/04, C-diff neg). Last humira dose was Wednesday 01/24. She is s/p ex-lap (saw normal appearing colon), R hemicolectomy and end ileostomy on 01/29 PMH/PSH: RA, fibromyalgia, depression, anxiety Home Meds: Methotrexate 10mg weekly, Humira 40mg weekly, medrol taper, imitrex, zoloft, folic acid, zofran Hospital Course: HD#1- admitted as above. Lactate 4. Discussed with pt option of stopping humira and methotrexate while treating with antibiotics, versus surgery. Started IV antibiotics. Pt decided on surgery HD#2/POD#0- s/p R hemicolectomy with end ileostomy. Having some back pain and tolerable abdominal pain this morning. Planning on mobilizing with PT, ostomy nurse consult. Perioperative vancomycin/zosynto stop today. Novoa out if ambulating 24hr events: ?? As above Subjective: some back pain and diffuse abdominal pain, tolerable O: Last value Range last 24hrs Temperature Temp: 36.7 ??C (98.1 ??F) Temp: [36.7 ??C (98.1 ??F)-36.9 ??C (98.4 ??F)] Heart Rate Heart Rate: 103 Heart Rate: [68-103] Blood Pressure BP: 147/80 mmHg BP: (125-173)/(68-129) Respiratory Rate Resp: 20 Resp: [8-22] SpO2 SpO2: 99 % SpO2: [93 %-100 %] 01/28 0701 - 01/29 0700 In: 395 [I.V.:395] Out: 1665 [Urine:1665] Physical Exam: General: NAD, resting comfortably CVS: RRR Pulm: unlabored Abd: soft, appropriately tender. Midline dressing with mild serosang shadowing. Brown stool in ostomy. : novoa Skin: warm, dry Neuro: nonfocal,moving all four extremities spontaneously LABS: Recent Labs Basename 01/28/14 1905 WBC 15.1* HGB 14.0 HCT 42.8 PLATELET 218 PT -- INR -- PTT -- Recent Labs Basename 01/28/14 1905 NA 137 K 4.0 CL 100 CO2 22 BUN 17 CREATININE 0.87 GLUCOSE 125 CALCIUM -- MAGNESIUM -- PHOS -- NEW IMAGING: CT abd/pel 01/28: 1. Pneumatosis involving the cecum, ascending, and proximal transverse colon. While not associated with wall thickening or adjacent inflammatory changes and possibly related to corticosteroid use, thisfinding is concerning in the setting of recent onset of abdominal pain. CRITICAL FINDING. 2. No free air, small bowel pneumatosis, or evidence of vascular compromise. 3. Mild splenomegaly. ASSESSMENT: Monique Melgar is a 38 y.o. female with hx of steroid use and other immunosuppression for RA, presenting with 6 weeks of abdominal pain with new R colon pneumatosis on CT. S/p R hemicolectomy with ileostomy on 01/29. PLAN: NEURO: -[employer], IV tylenol x 4 doses CV: -HD stable; lactate 4 on arrival, 3.9 post-op - follow UOP and bolus PRN PULM: -encourage IS 10x/hr FEK/: -LR @100cc/hr -novoa out today if ambulatory GI: -NPO, awaiting ROBF HEME: -HD stable, trend hgb ID: -perioperative vanc/zosyn - to stop tonight ENDO: -normoglycemia RHEUM: -last took humira on 01/24; will create plan for restart of immunosuppressants though anastamosis leak risk is worrisome PPX: -SCDs, SQH, nexium DISPO: -floor [facility] Department of General Surgery Pager: [phone] Kathie Wan RN - 01/29/2014 3:00 AM EDT Pt admit to rm# [id number] via bed from PACU. Lethargic but easily arouses. Oriented X 4, oriented to room and plann of care. Lungs decreased @ bases. O2 on @ 2L. Abdomen soft, stoma pink, no c/o nausea. NGT to LCS, No drainage. Pt c/o pain in lower, mid back. Repositioned with ice packs against back. Pt awake sitting up on side of bed with assist. Using Dilaudid [employer]. Stated pain level 5/10. Novoa intact patent passing clear dark yellow urine. Midline incision dressing dry and intact. Vital signs stable. Will continue to monitor. Jeffry Perez RN - 01/29/2014 2:49 AM EDT Patient admitted from OR, received report from anesthesia. Patient attached to monitor, alarms audible. 0245: Updated Dr. Coe on patient status prior to transfer, and patients BP. okay with BP for transfer. documented in this encounter ED Notes Star Maguire RN - 01/28/2014 10:11 PM EDT Pt to the OR, continues to deny nausea, states she feels drowsy, pain continues @ 04/18, pt medicatedfor abdominal pain. Star Maguire RN - 01/28/2014 9:29 PM EDT Nausea is better, pt resting quietly, call perry in reach, clinical status unchanged. Dr Garcia aware of pt pain level. Janene Garcia MD - 01/28/2014 8:39 PM EDT Chief Complaint Patient presents with ??? Abdominal Pain HPI Monique Melgar is a 38 y.o. who presents to the Emergency Department, with abdominal pain. Patient has a history of rheumatoid arthritis and is on Medrol, Humira and methotrexate. She complains of 6 weeks of abdominal pain. She's been seeing multiple hospitals he has CT at an outside hospital 2 weeks ago that was normal. Patient had repeat CT done as an outpatient here at [facility] today. She has air in her bowel wall. She complains of diffuse abdominal pain with nausea no vomiting denies any fevers or chills or sweats. States her last 2 weeks the pain has been worse. Allergies Allergen Reactions ??? Sulfa (Sulfonamide Antibiotics) CIS - Anaphylaxis ??? Tape, Permeable Adhesive Review of Systems Constitutional: Negative for fever, chills, activity change, appetite change and unexpected weight change. HENT: Negative for hearing loss, congestion, sore throat and trouble swallowing. Eyes: Negative for photophobia and visual disturbance. Respiratory: Negative for cough, chest tightness, shortness of breath and wheezing. Cardiovascular: Negative for chest pain, palpitations and leg swelling. Gastrointestinal: Positive for nausea and abdominal pain. Negative for vomiting and abdominal distention. Genitourinary: Negative for dysuria, urgency, frequency and difficulty urinating. Musculoskeletal: Positive for joint swelling and arthralgias. Negative for back pain. Skin: Negative for color change and rash. Neurological: Negative for dizziness, syncope, weakness, light-headedness and headaches. Hematological: Negative for adenopathy. Does not bruise/bleed easily. Psychiatric/Behavioral: Negative for confusion and decreased concentration. Physical Exam Nursing note and vitals reviewed. Constitutional: She is oriented to person, place, and time. She appears well- developed and well-nourished. She appears distressed. HENT: Head: Normocephalic and atraumatic. Mouth/Throat: No oropharyngeal exudate. Eyes: Conjunctivae normal are normal. Pupils are equal, round, and reactive to light. Right eye exhibits no discharge. Left eye exhibits no discharge. No scleral icterus. Neck: Normal range of motion. Neck supple. No tracheal deviation present. No thyromegaly present. Cardiovascular: Normal rate, regular rhythm and normal heart sounds. Pulmonary/Chest: Effort normal and breath sounds normal. No respiratory distress. Abdominal: Soft. Bowel sounds are normal. She exhibits distension. She exhibits no mass. There is tenderness. There is guarding. There is no rebound. Musculoskeletal: Normal range of motion. She exhibits no edema and no tenderness. Neurological: She is alert and oriented to person, place, and time. No cranial nerve deficit. Skin: Skin is warm. No rash noted. She is diaphoretic. Psychiatric: She has a normal mood and affect. Her behavior is normal. Procedures MDM Number of Diagnoses or Management Options Abdominal pain, unspecified site: Diagnosis management comments: Review the patient's past medical history, medication list, allergy list and social history review the patient's CT scan and consulted general surgery. Patient on a whitecount of 15,000 with a lactate of 4.0 patient was hydrated with 2 L of fluid we'll recheck a lactatepatient was treated with vancomycin and Zosyn. Patient will be admitted to the surgery service for ongoing monitoring ED Course: Impression: Abdominal pain with abnormal CT scan of the abdomen patient will be admitted to surgery for IV antibiotics and resuscitation. Janene Garcia MD 01/28/142043 Star Maguire RN - 01/28/2014 8:00 PM EDT Surgery in to talk to pt. Star Maguire RN - 01/28/2014 7:51 PM EDT Nausea under control, pt abdominal pain continues-Dr Garcia made aware, see new orders. Star Maguire RN - 01/28/2014 6:45 PM EDT Pt states as in triage, skin p/w/d, RRR, even unlabored, lungs CTA bi lat, abdomin is soft tender topalpation in her mid and lower R quad. Pt has no trouble voiding, but has been having diarrhea. Dr Garcia in to assess pt. documented in this encounter Miscellaneous Notes Miscellaneous - Provider, Scanning - 02/04/2014 11:08 AM EDT Miscellaneous - Provider, Scanning - 02/04/2014 11:08 AM EDT Discharge Summary - Heide Townsend MD - 02/03/2014 12:08 PM EDT Inpatient - Discharge Summary Patient Name: Monique Melgar Patient Age: 38 y.o. Birthdate: 1975 Admit date: 01/28/2014 Discharge date and time: 02/03/2014 Attending Physician: Declan Graham MD Primary Diagnosis: 1) pneumatosis R colon, s/p ex-lap, right hemicolectomy with end ileostomy Secondary Diagnosis: Active Hospital Problems Diagnosis ??? Pneumatosis coli Priority: High Now s/p right colectomy with ileostomy Resolved Hospital Problems Diagnosis Date Resolved No resolved problems to display. Active Non-Hospital Problems Diagnosis ??? Obesity ??? AMA (advanced maternal age) multigravida 35+ ??? Rheumatoid arthritis ??? Anxiety ??? Depression HPI: Ms. Melgar is a 38yo woman with h/o RA on immunosuppression (humira, methotrexate, medrol) who presented to the ED with ~6 weeks of chronic diffuse abdominal pain. She was sent to the ED by her PCP after a CT scan today showed diffuse pneumatosis in the R colon. For the past 6 weeks, Ms. Melgar has been experiencing abdominal pain throughout her abdomen that sometimes radiates to her back. It constant and dull, but she gets exacerbations after eating which are sharp, worst in RLQ, sometimes go to her back, and are associated with nausea and occasionally vomiting. She has not had bloody bowel movements recently, but does have loose stools interspersed with normal stools. Her last stool was yesterday mid day and was mucousy diarrhea and nonbloody. She has daily episodes of diaphoresis, and does getfevers/chills when the abdominal pain is worse. She says the pain hasn't changed in character over the past month and she has tolerated it with meditation, and has avoided pain meds. Her RA is better controlled since she switched her medication regimen in late December. Of note, the patient's problems first started a couple of months ago when she had a viral enteritis episode and was dx'ed with a UTI. She was treated with 7d course of cipro (ended 01/01) at that time and did not feel any better on the abx (GI sxs the same, RA sxs worse because had to stop the Humira).She had one bout of bloody diarrhea in mid December, but this resolved. Has had a few stools with smallstreaks of blood since then, but none in the past few days. She had a CT scan performed 01/04 at [facility] which was normal by report, without pneumatosis. C. Diff was negative per report. Currently has a little nausea, has not vomited today. Is diaphoretic. Her last humira dose was Saturday. Comprehensive 10-point ROS positive for weight gain and above noted symptoms, and prior sxs of IBS in the past, but otherwise negative. Operations/Major Procedures: Operations: 01/28/2014 - 01/29/2014 Surgeon(s) and Role: * Deepthi Alexander MD - Primary * Carrol Kumar MD: Procedure(s): @EXPLORATORY LAPAROTOMY, WITH/WITHOUT BIOPSY(S) HEMICOLECTOMY, WITH ILEOSTOMY Hospital Course: Moniuqe Melgar admitted as above. Lactate 4. Discussed with pt option of stopping humira and methotrexate while treating with antibiotics, versus surgery. Started IV antibiotics. Pt decided on surgery. She was taken to the operating room where the above procedures were performed. She tolerated the operation well and without complication. She was admitted post-operatively for observation and management. POD#0- Having some back pain and tolerable abdominal pain this morning. Pt mobilized with PT, ostomynurse consult was placed. Perioperative vancomycin/zosyn stopped. HD#1- admitted as above. Lactate 4. Discussed with pt option of stopping humira and methotrexate while treating with antibiotics, versus surgery. Started IV antibiotics. Pt decided on surgery HD#2/POD#0- s/p R hemicolectomy with end ileostomy. Having some back pain and tolerable abdominal pain this morning. Planning on mobilizing with PT, ostomy nurse consult. Perioperative vancomycin/zosynto stop today. Novoa out if ambulating HD#3/POD#1: MIVF decreased, Novoa removed, NGT to gravity and possibly pulled, started on home steroid dose HD#4/POD#2: No acute events, minimal output from ostomy, steroid dose decreased to baseline dose HD# 5/POD#3: Ostomy output increasing Nausea without vomiting early in the AM. No acute events overnight HD#6/POD#4: Ostomy output increased (1.8L), no n/v, pain well controlled HD#7/POD#5 OStomy output thicker and decreased to 1.2L, tolerating diet, pain issues overnight afterPCA Dc'd, increased PO meds She ambulated with physical therapy who thought she was stable for discharge to home with VNA for ostomy care. Hemoglobin was monitored and stable throughout stay. She was tolerating a regular diet, ambulating and voiding without difficulty, pain was well controlled on oral pain medications, and she was afebrile with stable vital signs when he was deemed ready for discharge on POD 5. Follow-up was planned for next week for staple removal and 2 weeks for post op check. VNA set up to help with ostomy care. Immunizations: Immunization History Administered Date(s) Administered ??? Influenza Vaccine w/Preservative, Split 06/09/2013 ??? Influenza Vaccine, Whole 08/16/2006 ??? Pneumococcal Polyvalent 23 08/16/2006 ??? Tuberculin Skin Test, PPD 10/09/2006 Functional/Cognitive Status: Ambulatory and cognitively intact Smoking Status at Discharge: History Smoking status ??? Former Smoker ??? Types: Cigarettes Smokeless tobacco ??? Not on file Comment: quit 2 years ago Pending Lab Data at Discharge: None Important Studies and Lab Data: Recent Results (from the past 24 hour(s)) BASIC METABOLIC PANEL (NON-FASTING) Component Value Range Glucose Lvl 85 60 - 199 mg/dL BUN 17 8 - 18 mg/dL Creatinine 0.73 0.70 - 1.20 mg/dL Sodium 136 135 - 145 mmol/L Potassium 3.3 (*) 3.5 - 5.0 mmol/L Chloride 100 98 - 107 mmol/L CO2 25 22 - 31 mmol/L Anion Gap 11 5 - 15 mmol/L Calcium 9.0 8.5 - 10.5 mg/dL Estimated GFR >60 >=60 MAGNESIUM Component Value Range Magnesium 0.77 0.69 - 1.07 mmol/L PHOSPHORUS Component Value Range Phosphorus 3.3 2.5 - 4.5 mg/dL HEMOGRAM Component Value Range WBC 12.2 (*) 4.0 - 10.0 x10(3)/mcL RBC 4.04 3.93 - 5.22 x10(6)/mcL Hemoglobin 10.9 (*) 11.2 - 15.7 gm/dL Hematocrit 33.5 (*) 34.0 - 45.0 % MCV 82.9 79.0 - 94.0 fL MCH 27.0 26.6 - 32.2 pg MCHC 32.5 32.0 - 36.5 gm/dL Platelets 225 145 - 370 x10(3)/mcL RDWSD 47.8 (*) 35.0 - 46.0 fL RDWCV 16.2 (*) 10.9 - 14.4 % MPV 9.8 9.0 - 12.0 fL DIFFERENTIAL, AUTOMATED Component Value Range Neutrophils % 56.6 34.0 - 71.0 % Neutr Abs (ANC) 6.93 (*) 1.50 - 6.30 x10(3)/mcL Lymphocytes % 31.4 19.0 - 53.0 % Lymphocytes Abs 3.8 (*) 1.0 - 3.6 x10(3)/mcL Monocytes % 8.2 4.0 - 13.0 % Monocyte Abs 1.0 0.2 - 1.0 x10(3)/mcL Eosinophils % 1.6 0.0 - 7.0 % Eosinophils Abs 0.2 0.0 - 0.5 x10(3)/mcL Basophils % 0.2 0.0 - 2.0 % Basophils Abs 0.0 0.0 - 0.2 x10(3)/mcL Immature Gran % 2.00 (*) 0.00 - 0.66 % Helen Gran Abs 0.25 (*) 0.00 - 0.05 x10(3)/mcL Radiology: 01/28 CT abd/pel: Abdomen: Imaged portions of the lung bases are unremarkable. The liver is normal in size and contour, without focal hepatic lesion or biliary dilatation. The gallbladder has been removed. The spleen is mildly enlarged, measuring up to 15.7 cm in length. The adrenal glands are atrophic, consistent with history of corticosteroid use. The pancreas and kidneys are normal. There is no free air. No dilated or abnormally thickened loops of small bowel. No ascites, abdominal fluid collection, or abscess. No retroperitoneal or mesenteric adenopathy. There is extensive pneumatosis involving the cecum, ascending colon, and proximal transverse colon, without associated wall thickening or adjacent stranding. The appendix is normal. No small bowel pneumatosis is seen. The remainder of the colon is normal in appearance, with moderate amount of formed stool seen from the transverse colon through the rectum. The SMA and SMV appear patent, including the ileocolic and right colic branches of the SMA, within limits of this non arterial phase examination. Pelvis: The uterus and adnexa are unremarkable. The bladder is minimally filled but grossly normal in contour. No free fluid, pelvic mass, or lymphadenopathy. Skeleton: No suspicious lytic or sclerotic osseous lesion. The SI joints and hips are unremarkable. There is a minimal levoconvex lumbar curvature, which may be positional. Impression 1. Pneumatosis involving the cecum, ascending, and proximal transverse colon. While not associated with wall thickening or adjacent inflammatory changes and possibly related to corticosteroid use, this finding is concerning in the setting of recent onset of abdominal pain. CRITICAL FINDING. 2. No free air, small bowel pneumatosis, or evidence of vascular compromise. 3. Mild splenomegaly. Exam: Temp: [36.4 ??C (97.5 ??F)-36.8 ??C (98.2 ??F)] Heart Rate: [64-89] Resp: [16-18] BP: (119-128)/(62-72) SpO2: [98 %-100 %] I/O last 3 completed shifts: In: 2738.8 [P.O.:960; I.V.:1778.8] Out: 4325 [Urine:1975; Stool:2350] General: NAD, resting comfortably CVS: RRR Pulm: CTAB Abd: soft, appropriately tender. Midline dressing ezekiel in place c/d/i. Gas and stool in ostomy : voiding w/o difficulty Skin: warm, dry Neuro: nonfocal,moving all four extremities spontaneously Discharge to: Home with VNA Discharge Conditions/Prognosis: Stable Discharge Medications: Your Medications As of 02/03/2014 12:08 PM Notice Some of the medications listed here do not show instructions, such as how often to take the medication. Ask your doctor or nurse how to use these medications. New Medications Dose Details oxyCODONE 5 mg immediate release tablet Commonly known as: ROXICODONE Take 1-3 tablets by mouth every 3 hours as needed for Pain. 5-15 mg Quantity: 100 tablet Refills: 0 Continued medications, unchanged Dose Details folic acid 1 mg tablet Commonly known as: FOLVITE Take 1 tablet by mouth daily. 1 mg Quantity: 90 tablet Refills: 3 KlonoPIN 1 mg tablet (Ask your doctor or nurse how to take this medication.) Generic drug: clonazePAM Refills: 0 leflunomide 20 mg tablet Commonly known as: ARAVA Take 1 tablet by mouth daily. 20 mg Quantity: 90 tablet Refills: 3 methylPREDNISolone 4 mg tablet Commonly known as: MEDROL 24 mg daily x 7 days, then decrease by 4 mg every 7 days Quantity: 180 tablet Refills: 2 ondansetron 4 mg oral disintegrating tablet Commonly known as: ZOFRAN-ODT Refills: 0 sertraline 50 mg tablet Commonly known as: ZOLOFT Take 50 mg by mouth daily. 50 mg Refills: 0 SUMAtriptan 50 mg tablet Commonly known as: IMITREX as needed. Refills: 0 traMADol 50 mg tablet Commonly known as: ULTRAM Take 1-2 tablets by mouth every 6 hours as needed for Pain. 50-100 mg Quantity: 240 tablet Refills: 3 STOPPED Medications Adalimumab 40 mg/0.8 mL Pnkt hydroCODone-Acetaminophen 5-300 mg Tab methotrexate 2.5 mg tablet PHENADOZ 25 mg suppository Generic drug: promethazine Updated Allergies/ADRs: Allergies Allergen Reactions ??? Sulfa (Sulfonamide Antibiotics) CIS - Anaphylaxis ??? Tape, Permeable Adhesive Follow-up Recommendations for Providers: - continue medrol 12mg po daily while an inpatient - upon discharge would decrease to alternating doses of 12mg daily and 8mg daily (discussed with thepatient) - we will arrange for f/u with Dr. Valerio within 1-2 weeks - please call us with any questions or concerns, we will sign off for now. PCP: FADIA BAUTISTA MD Scheduled Appointments: Future Appointments Date Time Provider Department Center 02/10/2014 1:00 PM Nurse, General Surgery [facility] 02/15/2014 10:30 AM Rebeca Valerio DO [facility] 02/24/2014 9:30 AM Lori Nino APRN [facility] 02/24/2014 9:30 AM Ostomy Nurse, General Surgery [facility] 02/25/2014 11:00 AM Gage Ramos APRN [facility] Outpatient Services/Studies: Referral to Home Health Order Comments: DISCHARGE DOCUMENTATION FOR VNA SERVICES (INCLUDING THOSE PATIENTS WITH MEDICARE COVERAGE BEING DISCHARGED HOME WITH VNA SERVICES AND THOSE PATIENTS WITH MEDICARE COVERAGE WHO ARE BEINGDISCHARGED HOME WITH HOSPICE SERVICES) In discussion with the attending physician, it is certified that this patient is under their care and that they, or a nurse practitioner, clinical nurse specialist or physician's bilingual administrative assistant who is working directly with them, had a face to face encounter that meets the physician face to face encounter re quirements with this patient on 02/03/14. The encounter with the patient was in whole, or in part, for the following medical condition, which is the primary reason for home health care services: [ OR 01/28/14 exp lap, right colectomy with end ileostomy ] In discussion with the primary medical team, it is certified that, based on their findings, the indicated services are medically necessary and appropriate for home health services. Please note that any additional orders needs or changes will need to be obtained from [facility] General Surgery Nurse Line [phone] or from this patient's PCP: FADIA BAUTISTA MD [address] [place] [address] All VNA agencies which cover the area of patient's residence have been reviewed, either verbally or in writing, and patient/family have chosen the indicated home health care agency for home services. [facility] PHONE: [phone] FAX: [phone] RN visits to begin on day after patient's discharge to home, if possible. RN visits 3-4times for post-operative assessment, checking for signs and symptoms of infection. Assess nutrition and hydration/abdomen/stooling via ileostomy. Reinforcement of teaching about ileostomy care. Referral to Kimberly Keys RN. Cardio-pulmonary assessment. Medication review. Question Response Notes Agency name and contact information [facility] Patient location post discharge home What services are requested Registered Nurse Start date 02/04/2014 Responsible MD post discharge contact info [facility] Dr. Deepthi Alexander or PCP Fadia Bautista Instructions Given to Patient at Discharge:. An After Visit Summary was printed and given to the patient. Provider Instructions Call your doctor if: Please call if you notice worsening redness or drainage from incision(s) lasting longer than 5 days after your surgery, any foul- smelling drainage from the incision, pain not controlled by pain medications, persistent nausea and vomiting, or for any fevers greater than 101.3 F. The number for questions is [phone] before 5 PM weekdays and [phone] after 5 PM and weekends. Activity level: No heavy lifting greater than 10 pounds (about equal to a full gallon jug) for the next 4 weeks or until cleared to do so at follow-up appointment. Otherwise activity as tolerated by comfort level. Diet: You may resume your regular diet as tolerated. Driving: No driving while still taking opioid pain medications (wait at least 6- 8 hours since last dose). No driving if you are still sore from surgery as it may limit your ability to react quickly if necessary. Shower/Bath: You may shower and get incision(s) wet. Pat dry immediately following. Do not scrub them vigorously for the next 2-3 weeks. Do not soak incision(s) for the next 2 weeks (i.e. soaking in bath or swimming) as this may promote a wound infection. Wound Care: Wash incision with soap and water, pat dry, and leave open to air. Allow steri-strips (pieces of tape) to fall off on their own if you have them. You may cover with gauze as needed to prevent incision rubbing on clothes or for any seepage. *[place]: These may be removed in 10-14 days from the date of operation. This may be done during your follow up visit with general surgery Follow up Appointments: Follow-up appointment will be scheduled with general surgery clinic Appointment will be mailed to you. Please call [phone] (clinic number for appointments) to confirm date and time of your appointment if you do not receive your apointment in a timely fashion. DIVISION OF COLON AND RECTAL SURGERY High Ileostomy Output Patient Instructions: This content was designed for use in [facility] Division of Colon & Rectal Surgery Patients Only Patients with new ileostomies are especially prone to dehydration - the most common preventable cause of readmission to the hospital after you are discharged. Please take the following instructions seriously in order to avoid being re-admitted for dehydration. 1. If you are having >1.5 liters (about 6 1/2 cups or 50 ounces) per 24 hours of ileostomy output, then you are at increased risk of becoming dehydrated. 2. Dry mouth, dark urine or less than normal urine output, dizziness, or flu- like symptoms are some signs of dehydration. 3. Please re-hydrate yourself not with plain water (which can make dehydration worse by diluting thesalt in your body) but with coconut water, Pedialyte, or [id number] Oral Rehydration Solutions(ORS) available from the pharmacy. 4. If you are having thin watery/loose stool then it needs to be thickened with diet ?? eat stool thickening foods such as the BRAT diet (soft Bananas, white Rice, Applesauce, [place]) aswell as cheese, creamy peanut butter, pasta, mashed potatoes. ?? take Metamucil one TABLESPOON in only 4 oz. of water two to three times per day to thicken your stool. ?? Drink most of your liquids between meals (not with meals) to maximize absorption of the food you eat. ?? Do not restrict salt in your diet, as sodium losses in ostomy output can be great. ?? Potato chips and Gatorade can help to thicken the stool and replace salt losses quickly. ?? Peeled pickles are another high salt food option to help prevent sodium losses in ostomy output. 5. If your stool becomes thicker but still >1.5L per 24 hours then start [id number] Imodiumto slow your stool down ?? Start with half a tablet 30 minutes before meals and at bedtime. ?? If this helps but not enough then increase to 1 tablet 30 minutes before meals and at bedtime. ?? If this helps but not enough then increase to 2 tablets 30 minutes before meals and at bedtime. 6. If you are still having high output then call your team (doctor or stoma nurse) at the hospital (as above). Remember do not take extended release pills or large pills which may cause a blockage. You may crushnon-extended release pills and take them with applesauce, yogurt, or pudding. Intake and Output for New Ileostomy Patients [facility] Division of Colon & Rectal Surgery Name: Intakes / Outputs Date in in in in out out out out out Food Liquid IV fluids TPN urine stool drain #1 drain #2 drain #3 7am 8am 9am 10am 11am 12pm 1pm 2pm 3pm 4pm 5pm 6pm 7pm 12 hour total 8pm 9pm 10pm 11pm 12am 1am 2am 3am 4am 5am 6am 7am 12 hour total 24 hour total General Instructions None Provider Contact Information: Department of Trauma and Acute Care Surgery - [phone] Signed: HEIDE TOWNSEND MD 02/03/2014 Plan of Care - Denisa Centeno RN - 02/03/2014 3:48 AM EDT Problem: Pain, Acute (Adult, Obstetrics) Goal: Acceptable Pain Control/Comfort Level Patient will demonstrate the desired outcomes. Patient medicated with oral pain meds. Patient states that pain is currently well controlled.RN will also seek to provide any non-pharmacological comfort measures as appropriate to help patient mitigate pain. RN continues to monitor. Problem: Skin Integrity Impairment, Risk/Actual (Adult, Obstetrics) Goal: Skin Integrity/Wound Healing Patient will demonstrate the desired outcomes. Patients skin appears to be intact at this time and free of pressure ulcers. Surgical sites are dry and intact. Patient able to independently reposition themselves every 2 hours. Nutrition and hydration promoted as tolerated. RN will monitor patients skin. Problem: Fall/Trauma/Injury Risk (Adult, Obstetrics) Goal: Absence of Trauma/Injury/Falls Patient will demonstrate the desired outcomes. Patient ambulating with standby assist and has been up ad lisa in room. Patient remains free of fallsduring this hospitalization. RN encouraging patient to perform self-care acts as tolerated. Patient has a call perry within reach and alerts RN appropriately when they want to mobilize. Plan of Care - Jose Joyner RN - 02/02/2014 12:55 AM EDT Problem: Pain, Acute (Adult, Obstetrics) Intervention: Pain Management Interventions Patient using [employer] with dilaudid to control pain. Patient states that pain is currently well controlled and pain management has been improving. RN will look to switch to orals as ordered by MD and monitor patient for any acute changes in pain. RN will also seek to provide any non-pharmacological comfort measures as appropriate to help patient mitigate pain. RN continues to monitor. Problem: Skin Integrity Impairment, Risk/Actual (Adult, Obstetrics) Intervention: Pressure Reduction Techniques Patients skin appears to be intact at this time and free of pressure ulcers. Surgical sites are dry and intact. Patient able to independently reposition themselves every 2 hours. Nutrition and hydration promoted as tolerated. RN will monitor patients skin. Problem: Fall/Trauma/Injury Risk (Adult, Obstetrics) Intervention: Self-Care Promotion Patient ambulating with standby assist and has been up ad lisa in room. Patient remains free of fallsduring this hospitalization. RN encouraging patient to perform self-care acts as tolerated. Patient has a call perry within reach and alerts RN appropriately when they want to mobilize. See doc flowsheet for additional documentation. Consult Note - Rose Ricci MD - 02/01/2014 9:01 AM EDT Rheumatology Fellow Inpatient Consult Note Reason for Consult: Monique Melgar has a history of sero-positive RA treated with MTx/Humira required hospitalization for abdominal pain now s/p ex-lab surgery for pneumatosis. Surgery iss requestingevaluation and post-operative management of her RA. HPI: Monique Melgar is a 38 y.o. female who presented to [facility] on 01/28/14 for abdominal pain found to have pneumotosis on CT scan requiring ex-lab surgery and ileostomy. We have been asked by the surgical team to evaluate and assist with her post-operative RA management. In brief, Mrs. Melgar was Dx with seropositive RA in 2006. She had a complicated in 01/2012 while on treatment for RA. Her RA control before was good on HCQ, MTX, and enbrel with very few flares on this combo. She stopped all RA meds at around 6 weeks gestation which is when she found out she was . Her RA wasOK during her 1st trimester but during her 2nd trimester her pain worsened requiring moderate doses of prednisone (15-20mg daily). Since then she has been back on a stable regimen of Humira and MTX (briefly tried arava in mid-november but could not tolerate due to GI side effects). She developed an infectious GI illness and stopped arava and humira. Off all meds she developed severe joint pain and couldnot tolerate higher doses of steroids due to mood issues (prednisone 20mg daily). She required Abx therapy for her GI illness but ultimately at CT scan was performed several days ago due to worsening abd pain and she required hospitalization and urgent surgical intervention for an abdominal pneumatosis. She has been taken to the OR and is POD #4 of ex-lab with ileostomy. She has not flared her RA while in the hospital. She has been walking and out of bed without joint limitations. She currently denies having any swollen or painful joints. She knows her body and RA well and she thinks her symptoms are stable but worried that the stress of surgery will cause a flare. She had a minor set-back in her recovery this morning due to nausea and inability to keep po down (team thinking her pain meds-[employer] pump- may be adding to this). She denies any oral ulcers, sicca symptoms, no eye involvement, no fever/chills etc. ROS: General (-)fevers, (-)chills, (-)night sweats, (-)wt loss/gain. HEENT (-)vision change, (-)sore throat, (-)bleeding gums, (-)oral ulcers, (-)dry eyes, (-)dry mouth,(-)dysphagia, (-)GERD CVS (-)chest pain, (-)palpitations, (-)pedal edema, (-)PND, (-)orthopnea. Pulm (-)shortness of breath, (-)JOHNSON, (-)wheezes, (-)cough GI (+)N/V, (+)abdominal pain s/p surgery, (-)dec in appetite post op also s/p major abd wall surgery (-)hematuria, (-)dysuria, (-)frequency, (-)nocturia, (-)genital ulcers MS (-)muscle weakness, (-)paralysis, (-)joint pain, (-)hx of arthritis Endo (-)thyroid disorders, (-)diabetes, (-)temperature intolerance. Neuro (-)focal weakness, (-)paresthesias, (-)gait instability. Skin (-)Raynaud's, ulcers Psych (-) mood disorder. PMH: seropositive ra dX in 2006 PTSD Fibromyalgia kidney stones Migraines Medication(s) at Home: Methotrexate 10mg weekly Folic Acid 1mg daily Humira SQ weekly Currently taking Medrol 12mg daily IV Abx (vanc/zosyn) Allergies Allergen Reactions ??? Sulfa (Sulfonamide Antibiotics) CIS - Anaphylaxis ??? 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 Cardiovascular: RR, (-)murmurs, rubs, or gallops. Lungs: Clear to auscultation bilaterally. (-)R/R/W Abdomen: Soft, nontender, nondistended, normal active bowel sounds, no hepatosplenomegaly. Back: Nontender over the spine and costovertebral angles bilaterally. Neuro: Alert and oriented x3. Cranial nerves II through XII grossly intact. Strength 5/5 throughout,Sensation to light touch is grossly normal throughout. DTRs are 2+ throughout. Toes downgoing bilaterally. Skin: (-)ulcers, (-)rash Extremities Shoulders: FROM, non-tender to palpation Elbows:FROM, (-)pain, (-)nodules Wrists: FROM, no swelling, non-tender Hands: No synovitis, no MCP compression tenderness, full claw and fist Hips: FROM Knees: (-)effusions, non-tender ROM Ankles: FROM, non-tender, no swelling Feet: no MTP compression tenderness Vascular: Pulses are equal in all extremities. Labs: Results for MONIQUE MELGAR ( ) as of 02/01/2014 09:09 Ref. Range 02/01/2014 03:29 WBC Latest Range: 4.0-10.0 x10(3)/mcL 12.4 (H) RBC Latest Range: 3.93-5.22 x10(6)/mcL 4.74 Hemoglobin Latest Range: 11.2-15.7 gm/dL 12.7 Hematocrit Latest Range: 34.0-45.0 % 38.4 MCV Latest Range: 79.0-94.0 fL 81.0 MCH Latest Range: 26.6-32.2 pg 26.8 MCHC Latest Range: 32.0-36.5 gm/dL 33.1 RDWSD Latest Range: 35.0-46.0 fL 46.0 RDWCV Latest Range: 10.9-14.4 % 16.1 (H) Platelets Latest Range: 145-370 x10(3)/mcL 184 MPV Latest Range: 9.0-12.0 fL 9.1 Neutr Abs (ANC) Latest Range: 1.50-6.30 x10(3)/mcL 8.19 (H) Neutrophils % Latest Range: 34.0-71.0 % 65.8 Immature Gran % Latest Range: 0.00-0.66 % 1.10 (H) Lymphocytes % Latest Range: 19.0-53.0 % 22.3 Monocytes % Latest Range: 4.0-13.0 % 10.3 Eosinophils % Latest Range: 0.0-7.0 % 0.3 Basophils % Latest Range: 0.0-2.0 % 0.2 Helen Gran Abs Latest Range: 0.00-0.05 x10(3)/mcL 0.14 (H) Lymphocytes Abs Latest Range: 1.0-3.6 x10(3)/mcL 2.8 Monocyte Abs Latest Range: 0.2-1.0 x10(3)/mcL 1.3 (H) Eosinophils Abs Latest Range: 0.0-0.5 x10(3)/mcL 0.0 Basophils Abs Latest Range: 0.0-0.2 x10(3)/mcL 0.0 Sodium Latest Range: 135-145 mmol/L 137 Potassium Latest Range: 3.5-5.0 mmol/L 3.7 Chloride Latest Range: 98-107 mmol/L 98 CO2 Latest Range: 22-31 mmol/L 27 Anion Gap Latest Range: 5-15 mmol/L 12 BUN Latest Range: 8-18 mg/dL 12 Creatinine Latest Range: 0.70-1.20 mg/dL 0.62 (L) Estimated GFR Latest Range: >=60 >60 Glucose Lvl Latest Range: 60-199 mg/dL 98 Calcium Latest Range: 8.5-10.5 mg/dL 9.2 Magnesium Latest Range: 0.69-1.07 mmol/L 0.96 Phosphorus Latest Range: 2.5-4.5 mg/dL 4.5 Studies: CT abd/pelvis: Impression 1. Pneumatosis involving the cecum, ascending, and proximal transverse colon. While not associated with wall thickening or adjacent inflammatory changes and possibly related to corticosteroid use, this finding is concerning in the setting of recent onset of abdominal pain. CRITICAL FINDING. 2. No free air, small bowel pneumatosis, or evidence of vascular compromise. 3. Mild splenomegaly. Assessment: Monique Melgar is a 38 y.o. female with a PMH of sero-positive RA on Humira/Mtx and recent steroidtaper admitted to the hospital with adb pain from pneumatosis requiring surgical intervention (ex-lab and ileostomy) currently POD #4 on IV Abx. At this time her RA seems to be quite and not flared. There is always a concern that the stress of surgery can cause a flare but she seems to be stable at this time. In the past, when she required the equivalent of prednisone 15-20mg to keep her dz stable. She has received a dose of medrol 12mg daily starting yesterday. At this time we would like to keep medrol at the current dose with the potential restarting of Mtx 10mg weekly in about 1 week. We will need to hold Humira at this time given her recent major abd surgery and need for Abx therapy. Her last dose of Humira was on 01/24 and we recommend holding at least the next dose. If there is concern over her current dose of medrol and wound healing/GI complications post operatively we can consider lowering it a bit until she remains comfortable and asymptomatic. We will be following her along with you and thank you for allowing us to participate in her care. Plan: 1. Sero-positive RA in a post operative patient - continue to hold Humira (at least next dose-last given 01/24) - may restart MTX 10mg weekly in 1-2 weeks if recovering well - continue current dose of medrol 12mg daily - post-op care per surgical team - will follow with you - please call on-call fellow with any concerns/questions Juni Lorenzo D.O. Rheumatology Fellow [phone] Patient seen and examined with Dr. Rose Ricci ATTENDING ADDENDUM Ms. Melgar was seen on rounds with Dr. Lorenzo and I agree with the details of the history, PE assessment and plan as outlined in his note. In brief Ms. Melgar is a 38 yo woman with seropositive RA with a complicated course most recently treated with MTX 10 mg weekly, Humira 40mg (last dose 01/24) and medrol taper who developed colonic pneumotosis and is now POD 4 for hemicolectomy and ileostomy. She was doing fairly well until this morning when her ileostomy back up and she had an increase in abdominal pain-now improving again. She started medrol 12mg daily yesterday for her RA and her joints are doing well. She was sleepy on my exam today-nodding off-but exceptionally pleasant and her joints and hands were puffy (her baseline) withoutactive synovitis or tenderness. Will continue on medrol 12mg po daily for now, add back in MTX one week post op if all continues to go smoothly and anti-TNF as indicated. Will continue to follow and adjust plan as warranted by her course. Thank you for involving us in her care. Rose Ricci MD pg [phone] Plan of Care - Jose Joyner RN - 02/01/2014 1:00 AM EDT Problem: General Plan of Care Goal: Individualization and Mutuality Ostomy care reviewed with patient this evening. RN allowed patient to perform care, and RN facilitated care by offering pointers and providing supplies to encourage patient independence. RN will continue to offer support and provide necessary materials for patient to perform self- care. RN continues to monitor. Problem: Pain, Acute (Adult, Obstetrics) Intervention: Pain Management Interventions Patient still using [employer] around the clock for pain control. Patient has only progressed to clears diet and it not ready yet for oral medications. Patient appears to be resting comfortably currently. RN continues to monitor for any acute changes in pain levels. Problem: Skin Integrity Impairment, Risk/Actual (Adult, Obstetrics) Intervention: Skin/Mucous Membrane Protection Patients skin appears to be grossly intact at this time and free of pressure ulcers. Patient's incision is well-approximated with ezekiel intact. Ostomy appears to by tangirnaq in color, and patient proficiently performs ostomy skin care with RN monitoring. Patient able to independently turn themselvesevery 2 hours. Nutrition and hydration promoted as tolerated. RN will monitor patients skin. Problem: Fall/Trauma/Injury Risk (Adult, Obstetrics) Intervention: Muscle Strengthening Patient ambulating with standby assist. Patient alerts RN when needing to mobilize and shows no acute signs of confusion. RN will continue to monitor and intervene as necessary. Plan of Care - Carrol Jacobo RN - 01/29/2014 7:00 PM EDT Problem: Pain, Acute (Adult, Obstetrics) Goal: Acceptable Pain Control/Comfort Level Patient will demonstrate the desired outcomes. Outcome: Present (see interventions, notes) Patient tolerating pain to lower back and abdomen. Patient states pain tolerable at 6/10 after IV tylenol given along with ice packs. Patient aware to alert RN if pain is not being controlled with current pain medication. RN will continue to monitor patient. Problem: Skin Integrity Impairment, Risk/Actual (Adult, Obstetrics) Goal: Skin Integrity/Wound Healing Patient will demonstrate the desired outcomes. Outcome: Present (see interventions, notes) Patient's ileostomy with thick, dark brown output. cardboard inserter came, changed ostomy bag and educated patient and family members. Abdominal incision with gauze intact. Otherwise patient's skin intact. RN will continue to monitor. Problem: Fall/Trauma/Injury Risk (Adult, Obstetrics) Goal: Absence of Trauma/Injury/Falls Patient will demonstrate the desired outcomes. Outcome: Present (see interventions, notes) Patient stood at bedside, ambulated to chair several times throughout the day with walker and 1 person assist. Patient remains free of fall/injury this shift. Patient calling for assistance when needed. Nonskid stockings on when out of bed. Environmental modifications and fall reduction measures in place. Clutter free environment maintained. Call light within reach at all times. Masimo on. Will continue to monitor. Initial Assessments - Shena Burkett, PT - 01/29/2014 10:52 AM EDT Physical Therapy Evaluation Patient profile: Pt. is a 38 y.o. female admitted on 01/28/2014 by Deepthi Sotelo MD for 6 weeksof RLQ abdominal pain, n/v, diaphoresis, chills; worse after eating, loose stools (occasional small streaks of blood). Pain seemed to get worse and RA got better since switched medication regimen in December 2013. Symptoms started with viral enteritis and UTI, with 7d ciprofloxacin course. Recent CT on 01/28 showing new pneumatosis R colon (had normal CT on 01/04, C- diff neg). Last humira dose was Wednesday 01/24. She is s/p ex-lap (saw normal appearing colon), R hemicolectomy and end ileostomy on 01/29/14. PMH: Past Medical History Diagnosis Date ??? Rheumatoid arthritis(714.0) ??? Depression ??? Anxiety ??? Fibromyalgia Past Surgical History Procedure Date ??? section 2000 ??? section 2003 ??? section 2011 ??? Exploratory of abdomen 01/28/2014 @EXPLORATORY LAPAROTOMY, WITH/WITHOUT BIOPSY(S) performed by Deepthi Alexander MD at [facility] MA[facility] OR ??? Intestine surg procedure unlisted 01/28/2014 HEMICOLECTOMY, WITH ILEOSTOMY performed by Deepthi Alexander MD at [facility] MAIN OR Social History: Patient lives with their family ( and 3 children) in [place], [place] in a 1 level home. Stairs: 3 with a rail to enter. Baseline Mobility: Indep prior to admission Equipment at home: None Precautions/Special Considerations: Fall risk, back pain, NG to suction, Novoa, and [employer] Subjective: ???The pain is more tolerable now. Objective: Pt seen for evaluation today on [facility]. Pt has been OOB to chair x2. Skin: Midline dressing with mild serosang shadowing. Brown stool in ostomy. Pain: 7on a scale of 0 - 10 dffuse abdominal pain. Reports improved pain in her back. Vital Signs: Sp02: 95% HR: 70s Mental Status: alert, oriented to person, place, and time Musculoskeletal: ROM: WFL Strength: WFL Sensation: WFL Bed Mobility: Supine to Sit: Need assistance per pt. Did not observe. Pt received up in the chair. Sit to Supine: Not observed Transfers: Sit to Stand: CGA with FWW. Good breathing technique Stand to Sit: CGA - able to reach back and sit slowly and controlled.Good breathing technique. Gait: Distance: 5ft Device used: rolling walker Level of assist: contact guard Gait pattern: Steady, reciprocal gait pattern Pt. to utilize rolling walker and supervision for ambulation with nursing. Balance: Sitting: Good Standing: CGA, better with FWW. Exercises: Standing with FWW - toe raises and marching, taking steps forwards/backwards. Sitting: long arc quads, seated marching, toe taps. Informed Consent: The family and patient agrees to and understands the PT treatment plan and goals. Education: family and patient have been educated on Bed mobility, Transfers, Assistive device/technique, Gait , Role of therapy and Discharge planning and verbalize and demonstrate understanding. Discussed progression of walking and importance of walking at least 3x/day. Pt receptive. Patient status, treatment, and mobility recommendations discussed with nursing. Assessment: Pt tolerated today???s evaluation with 7/10 pain (used [employer]), needed CGA for transfers and ambulation, and has decreased activity tolerance. The pt would benefit from skilled therapy services to maximize functional independence while in the hospital and to address limitations as noted above. Goals: To be achieved by discharge. 1. Pt. to demonstrate knowledge of precautions during functional activities. 2. Pt. to perform bed mobility with min assist with HOB flat. 3. Pt. to perform sit-stand transfers with supervision utilizing a rolling walker. 4. Pt. to ambulate 100 feet; with a rolling walker, and supervision. 5. Pt. to ambulate up/down 3 step/stairs with contact guard, using one railing. 6. Family or caregiver to demonstrate understanding of therapeutic interventions to support the careof the patient. Plan: Pt to be seen on Saturday. Will not be seen on Saturday. Pt to be seen 2-3 times per week for therapy including Bed mobility, Transfers, Assistive device/technique, Stairs, Breathing exercises, Positioning, Safety , Gait , Activity pacing/Energy conservationand Discharge planning. Patient agrees with plan as stated above. Equipment needs: Rolling walker Discharge Recommendations: Anticipate pt will be safe to go home with family. Patient would benefit from continued therapeutic interventions 2-3 times a week as provided in a home environment to progress toward functional goals. Occupational Therapy consult Total time spent with patient: 30 minutes EVALUATION Total timed interventions: 0 minutes SHENA BURKETT PT 01/29/2014 Pager: [phone] Physical Therapy Rehabilitation Department Op Note - Deepthi Alexander MD - 01/29/2014 7:28 AM EDT [facility] [place] Operative Note Patient Name: Monique Melgar : [id number] MR#: [id number] Case Date: 01/28/2014 - 01/29/2014 Surgeon: Surgeon(s) and Role: * Deepthi Alexander MD - Primary * Carrol Kumar MD - Surgeon Joaquim Preoperative diagnosis: pneumatosis Postoperative diagnosis: pneumatosis Procedure(s): 1. Exploratory laparotomy 2. Right colectomy with end ileostomy. Anesthesia: General ET Findings: Grossly normal appearing colon. Right hemicolectomy performed and decision made to not perform an ileocolostomy given immunosuppression and inability to assess where normal, healthy transverse colon began. End ileostomy created. Complications: none Fluids: 1700 mls Estimated Blood Loss: 150 mls UOP: 1000 mls Drains: none Disposition: awakened from anesthesia, extubated and taken to the recovery room in a stable condition, having suffered no apparent untoward event. HPI/Surgical Indications: 38 y.o. woman p/w 6 weeks of abdominal pain, nausea, and intermittent diarrhea in the setting of immunosuppressive treatment. She is diaphoretic and tender on exam and has a leukocytosis and elevated lactate. Her CT scan is c/w pneumatosis which seems to be a new development since 01/04. After discussion of the options for treatment, the patient has elected to undergo exploratory laparotomy and right colectomy for her pneumatosis. Procedure Description: After informed consent was obtained the patient was brought back to the OR and placed supine on the OR table. General anesthesia was administered and she was intubated. Additional support lines were placed. Pre- operative antibiotics (Vanc, Zosyn) were confirmed. A time-out was performed. Our attention was then turned to the patient's abdomen which was prepped and draped in the usual sterile fashion. A midline incision was made with a scalpel and brought down sharply through the dermis.Electrocautery was used to divide the subcutaneous tissue and the rectus fascia. The peritoneum was entered sharply with mets and extended with cautery, taking care not to injure underlying structures.Upon entrance to the abdomen we did not note any real abnormalities. The small intestine was run from the ligament of Treitz to the TI. To do this, several adhesions to the gallbladder bed fossa from the patient's prior cholecystectomy were taken down. There were no remarkable abnormalities. The largeintestine was then also examined and appeared grossly normal throughout. Given that we were not expecting the patient's colon to appear grossly abnormal (as we suspected her pneumatosis was most likely infectious in etiology), we elected to pursue a right colectomy. The white line of Toldt was taken down with electrocautery, taking great care not to injure the ureter proximally nor the duodenum distally. Once the colon was mobilized and brought up nicely into the field, we divided the TI with a blueload of the endoGIA stapler. Next, we selected a point in the mid-transverse colon, based on blood supply, to divide the colon. We then divided the mesentary between the TI and the selected portion of transverse colon by doubly clamping, cutting and tying with 3-0 silks. We then divided the transversecolon with the endoGIA as well. The specimen was sent to pathology. Next, given the degree of immunos uppression in the patient, as well as the fact that we could not grossly see the abnormality of her colon and thus were not entirely secure that we had resected all of the affected transverse colon, weelected to perform an end ileostomy without ileocolic anastomosis. Thus, we inspected the abdomen toensure hemostasis and appropriate positioning of the small intestine on it's mesentary. We then selected a position for end ileostomy in the right mid-lower quadrant. A dime sized hole was created fromthe skin, through the subcutaneous tissues. The anterior rectus sheath was incised in a cruciate fashion, the muscle spread to separate and the posterior rectus sheath incised with cautery as well. Theend ileostomy was then brought up through the stoma site. Unfortunately, the ileum was quite short on its mesentary and, in conjunction with the patient's body habitus with thick abdominal wall, we were unable to achieve acceptable end ileostomy so the decision was made to create a slight candy cane end ostomy. This was done with ease and without tension. Prior to maturing the stoma, we closed the midline incision: first, with PDS in a running fashion on the fascia and then with ezekiel on the skin.We then matured the stoma in the standard fashion with brooking sutures and interrupted sutures, allusing 3-0 vicryl. The stoma was noted to sit relatively flush with the skin. At this time a stoma appliance was applied and the midline wound was dressed with sterile gauze and tape. The patient was awoken, extubated and taken to PACU in stable condition. All counts were reported to be correct at the end of the case. Dr. Alexander was present and scrubbed for the entire procedure. OR Attestation - Deepthi Alexander MD - 01/29/2014 1:12 AM EDT Attestation: Case Date: 01/28/2014 - 01/29/2014 I was present and participated during the entire case. DEEPTHI ALEXANDER MD 01/29/2014 Brief Op Note - Deepthi Alexander MD - 01/29/2014 1:10 AM EDT Brief Operative Note Patient Name: Monique Melgar : [id number] MR#: [id number] Case Date: 01/28/2014 - 01/29/2014 Surgeon: Surgeon(s) and Role: * Deepthi Alexander MD - Primary * Carrol Kumar MD Preoperative diagnosis: pneumatosis Postoperative diagnosis: pneumatosis Procedure(s): @EXPLORATORY LAPAROTOMY, WITH/WITHOUT BIOPSY(S) HEMICOLECTOMY, WITH ILEOSTOMY Anesthesia: General Findings: Grossly normal appearing colon. Right hemicolectomy performed and decision made to not perform an ileocolostomy given immunosuppression and inability to assess where normal, healthy transverse colon began. End ileostomy created. Complications: none Fluids: 1700 mls Estimated Blood Loss: 150 mls UOP: 1000 mls Drains: none Disposition: awakened from anesthesia, extubated and taken to the recovery room in a stable condition, having suffered no apparent untoward event. Condition: doing well without problems (Please see the Surgical Encounter Summary for any Implant and Specimen details pertinent to this patient.) Miscellaneous - Provider, Scanning - 01/28/2014 9:03 PM EDT Miscellaneous - Provider, Scanning - 01/28/2014 7:55 PM EDT Consult Note - Deepthi Alexander MD - 01/28/2014 7:25 PM EDT General Surgery Resident Consult Note Patient Name: Monique Melgar Patient Age: 38 y.o. Birthdate: 1975 Admit date: 01/28/2014 Date of Consult: 01/28/14 Requesting Provider: Dr. Garcia Reason for Consult: Pneumatosis on CT scan Staffing Surgical Provider: Dr. Alexander HPI: Ms. Melgar is a 38yo woman with h/o RA on immunosuppression (humira, methotrexate, medrol) who presented to the ED with ~6 weeks of chronic diffuse abdominal pain. She was sent to the ED by her PCP after a CT scan today showed diffuse pneumatosis in the R colon. For the past 6 weeks, Ms. Melgar has been experiencing abdominal pain throughout her abdomen that sometimes radiates to her back. It constant and dull, but she gets exacerbations after eating which are sharp, worst in RLQ, sometimes go to her back, and are associated with nausea and occasionally vomiting. She has not had bloody bowel movements recently, but does have loose stools interspersed with normal stools. Her last stool was yesterday mid day and was mucousy diarrhea and nonbloody. She has daily episodes of diaphoresis, and does get fevers/chills when the abdominal pain is worse. She says the pain hasn't changed in character over the past month and she has tolerated it with meditation, and has avoided pain meds. Her RA is better controlled since she switched her medication regimen in late December. Of note, the patient's problems first started a couple of months ago when she had a viral enteritis episode and was dx'ed with a UTI. She was treated with 7d course of cipro (ended 01/01) at that time and did not feel any better on the abx (GI sxs the same, RA sxs worse because had to stop the Humira).She had one bout of bloody diarrhea in mid December, but this resolved. Has had a few stools with smallstreaks of blood since then, but none in the past few days. She had a CT scan performed 01/04 at [facility] which was normal by report, without pneumatosis. C. Diff was negative per report. Currently has a little nausea, has not vomited today. Is diaphoretic. Her last humira dose was Saturday. Comprehensive 10-point ROS positive for weight gain and above noted symptoms, and prior sxs of IBS in the past, but otherwise negative. Past Medical Hx: Past Medical History Diagnosis Date ??? Rheumatoid arthritis(714.0) ??? Depression ??? Anxiety ??? Fibromyalgia Past Surgical Hx: 3 c-sections Tubal ligation Cholecystectomy Social Hx: History Social History ??? Marital Status: Spouse Name: N/A Number of Children: N/A ??? Years of Education: N/A Social History Main Topics ??? Smoking status: Former Smoker Types: Cigarettes ??? Smokeless tobacco: Not on file Comment: quit 2 years ago ??? Alcohol Use: No ??? Drug Use: No ??? Sexually Active: Yes -- Male partner(s) Other Topics Concern ??? Not on file Social History Narrative ??? No narrative on file Family Hx: Family History Problem Relation Age of Onset ??? Chronic Obstructive Pulmonary Disease Mother Home Medications: Methotrexate 10mg weekly Humira 40mg weekly Medrol Taper Imitrex Zoloft Folic acid Zofran Allergies: Allergies Allergen Reactions ??? Sulfa (Sulfonamide Antibiotics) CIS - Anaphylaxis ??? Tape, Permeable Adhesive 24 Hour Vitals Last value Range last 24 hrs Temperature Temp: 36.8 ??C (98.2 ??F) Temp: [36.8 ??C (98.2 ??F)] Heart Rate Heart Rate: 88 Heart Rate: [88] Blood Pressure BP: 140/82 mmHg BP: (140)/(82) Arterial Blood Pressure BP (Arterial Line): -- Respiratory Rate Resp: 22 Resp: [22] SpO2 SpO2: 99 % SpO2: [99 %] RA PE: Gen: A&Ox3, diaphoretic Moist mucous membranes No lymphadenopathy, no scleral icterus CV: RRR, no m/g/r Pulm: CTAB no w/r/r GI: Obese, soft, tender to deep palpation in RLQ, + rebound tenderness in RLQ, no guarding, no masses Musculoskeletal: Moving all 4 extremities spontaneously, no cyanosis or edema, warm Derm: Rash under pannus and breasts Labs: No results found for this basename: WBC:3,HGB:3,PLATELET:3 in the last 168 hours No results found for this basename: NA:3,K:3,CL:3,CO2:3,BUN:3,CREATININE:3 in the last 168 hours No results found for this basename: AST:3,ALT:3,ALKPHOS:3,BILITOT:3,BILIDIR:3 in the last 168 hours No results found for this basename: CALCIUM:3,PHOS:3 in the last 168 hours No results found for this basename: GLUCOSE:5 in the last 168 hours Imaging: CT A/P 01/28 - Pneumatosis throughout R colon. No thickened bowel wall. No free air. Patent mesenteric vessels. A/P: 38 y.o. woman p/w 6 weeks of abdominal pain, nausea, and intermittent diarrhea in the setting of immunosuppressive treatment. She is diaphoretic and tender on exam and has a leukocytosis and elevated lactate. Her CT scan is c/w pneumatosis which seems to be a new development since 01/04. At this point the pneumatosis is less likely to be an ischemic cause and more likely infectious (bact translocvs. Viral) or a side effect of her RA meds. She is a poor surgical candidate due to her chronic immunosuppression, but her imaging and physical exam findings are worrisome given her degree of immunosuppression, and she is at risk for perforation, which would make surgery more urgent. Had extensive disc ussion with patient regarding risks/benefits of surgery and need for colostomy. Patient would like to try abx for 24-48 hours and see if she feels better. Plan as follows: Admit Vanc/Zosyn Bolus 2L IVF Hold all immunosuppressive meds except medrol (12mg daily until Saturday then was supposed to taper to8 but will d/w Rheum) Talk to her carpenter's assistant tomorrow Serial lactates and abdominal exams, close monitoring OR if worsens. Patient seen & examined with Dr. Kumar and Dr. Alexander. ARSENIO AVILA MD Acute Care Surgery Attending Addendum: I have seen this patient and agree with the above note with the following additions and/or modifications. Very nice 38 year old woman with a six week history of abdominal pain and daily sweats. This started after switching from Enbril to Arava and humira due to aflare of her RA. She had nausea and vomiting so the Arava was stopped and she has since been managedwith humira, methotrexate and metylprednisolone. Since then she has continued to have abdominal painand frequent loose stools requiring several visits to the ED. At one point she was given a week of Cipro for UTI, which ended 01/01. She denies feeling any better with the Cipro. A CT scan was done on 01/04 that per report was normal, images are not available here at this time. The pain is mostly in theRLQ and has not changed. Her sweats start in the afternoon and can last all night long. She reports that blood cultures were drawn recently and were negative, as were multiple stool studies. She underwent a CT scan due to her ongoing symptoms and was found to have pneumatosis of the colon prompting her to present to the ED. On exam she is lying in bed in no distress but appears a little uncomfortable. Her skin is cool and clammy. Chest is clear bilateral, heart rate is regular. Abdomen is obese, soft and a little distended and tympanitic. She is tender to palpation over the RLQ and epigastric region but not to percussionand there is now guarding. A/P: 38 year old woman on steroids, humira and methotrexate with a six week history of abdominal pain, intermitent diarrhea and daily sweats with no recent change in symptoms but was found on CT scan today to have pneumatosis. We discussed this finding with her and how it can be associated with steroid use and bacterial translocation, but that it is a very concerning finding given her clinical symptoms. That fact that there was no evidence on a CT scan done 01/04 is also bothersome. That said her symptoms have not changed over time. I explained that surgery would mean a partial colectomy with eitherend ileostomy or an ileocolonic anastomosis and diverting loop ileostomy. She is not excited about surgery and an ostomy so we discussed the option of stopping her humira and methotrexate while treating with IV antibiotics. This would entail very close monitoring with frequent abdominal exams and a very low threshold for proceeding to the OR. I also explained that if there was no evidence of improvement in the next 24-48 hours that she may also need surgery. She understands and would like to proceedwith a non operative strategy at this time. Will admit, keep npo and start IV antibiotics. Lactate was 4 on admission and will hydrate well with a plan to repeat the lactate in 4 hours. Addendum: After further contemplation the patient has expressed her desire for surgery given the risk of perforation and associated possible complications. Given her pain, elevated WBC and ability to mask more concerning signs and symptoms due to her immunosuppression I feel this is reasonable. Will proceed to the OR this evening. Med Student H&P - Janene Garcia MD - 01/28/2014 6:57 PM EDT Monique Melgar is an 38 y.o. female who presents to the ED with: Chief Complaint Patient presents with ??? Abdominal Pain I saw this patient 01/28/2014 at 6:57 PM HPI Monique Luong Noah is a 38 y.o. female with hx of RA on medrol, MTX and Humira who presents to the Emergency Department with abd pain after CT A/P today revealed pneumatosis intestinalis. Diffuse abd pain (worse on the right),distension, nausea and intermittent diarrhea have been present for about the past 6 weeks. She has been seen in an OSH ED 3x for this pain, initially treated with cipro with no improvement in pain. She feels about the same now as she has for the past few weeks with abd pain about8/10. A month ago she had an episode of BRBPR. No blood in stool since then. She is having 1-2 episodes of diarrhea per day, with intermittent normal BMs. No vomiting since she has been taking Zofran, but still has nausea. +low grade temps up to 100.1F, most recently last week. +chills. Reports baseline diaphoresis, but feels this is worse than usual. No wgt loss. Has been eating a bland diet. Currently midway through a Medrol taper that started at 24mg/day three weeks ago and now she is down to 12mg/day. Hx of appendectomy, c-sectionx3 and tubal ligation. Review of Systems: Gen: +fevers, +chills, no wgt loss CV: no chest pain, no palpitations Resp: no SOB, no cough GI: see above : no dysuria, no hematuria MS: no new myalgias or arthralgias Patient Vitals for the past 24 hrs: BP Temp Temp src Pulse Resp SpO2 Weight 01/28/14 1821 140/82 mmHg 36.8 ??C (98.2 ??F) Oral 88 22 99 % 88.905 kg (196 lb) Physical Exam: Gen: alert, pleasant young woman, walking around, diaphoretic and flush, appears in moderate distress CV: RRR, s1, s2, no m/r/g Resp: CTAB with no w/c/r Abd: obese, NABS, soft, but mildly distended with tympany, tender to palpation diffusely, right worse than left, no rebound tenderness, multiple well healed surgical scars Ext: warm and well perfused with no LE edema ED Course: - Patient was evaluated and discussed with Dr. Garcia - Medications, allergies and past medical history reviewed CT A/P: per rads read 1. Pneumatosis involving the cecum, ascending, and proximal transverse colon.While not associated with wall thickening or adjacent inflammatory changes and possibly related to corticosteroid use, this finding is concerning in the setting of recent onset of abdominal pain. CRITICAL FINDING. 2. No free air, small bowel pneumatosis, or evidence of vascular compromise. 3. Mild splenomegaly. Labs significant for lactate 4.0, WBC 15.1, alk phos 124 Patient rec'd 2L IVF bolus, 3x 0.5 mg Dilaudid and 4mg Zofran Surgery evaluated patient. Assessment and Plan: Assessment: 38 y.o. female on steroids and immunomodulators for RA who presents with 6 wks of abd pain, nausea, diarrhea and found to have pneumatosis on CT A/P. No peritoneal signs on exam, but leukocytosis and elevated lactate concerning given her chronic immunosuppression. Plan: Admit with management per surgery Stephani Schultz DMS IV This note was written by a medical student observing this patient's care. The student's note is reviewed for educational purposes. The medical student note is not used for clinical or billing purposes.My cosignature attests to my educational involvement with the student and is not an endorsement of the clinical validity of the note. ED Triage - Lizette Madrid RN - 01/28/2014 6:23 PM EDT Pt. Had an abdominal CT done today. Was called onher cell phone by Dr. Arguelles to return to [facility] to the ED due to abnormal CT scan. documented in this encounter Plan of Treatment Not on filedocumented as of this encounter Procedures Procedure Name Priority Date/Time Associated Diagnosis Comme nts HEMOGRAM Routine 02/03/2014 3:26 AM Results f or this EDT procedure are i n the results section. DIFFERENTIAL, Routine 02/03/2014 3:26 AM Results for this AUTOMATED EDT procedure are i n the results section. CBC (WITH DIFF) Routine 02/03/2014 3:26 AM EDT PHOSPHORUS Routine 02/03/2014 3:26 AM Results f or this EDT procedure are i n the results section. MAGNESIUM Routine 02/03/2014 3:26 AM Results f or this EDT procedure are i n the results section. BASIC METABOLIC PANEL Routine 02/03/2014 3:26 AM Results for this (NON-FASTING) EDT procedure are in the results section. HEMOGRAM Routine 02/02/2014 4:16 AM Results f or this EDT procedure are i n the results section. DIFFERENTIAL, Routine 02/02/2014 4:16 AM Results for this AUTOMATED EDT procedure are i n the results section. CBC (WITH DIFF) Routine 02/02/2014 4:16 AM EDT PHOSPHORUS Routine 02/02/2014 4:16 AM Results f or this EDT procedure are i n the results section. MAGNESIUM Routine 02/02/2014 4:16 AM Results f or this EDT procedure are i n the results section. BASIC METABOLIC PANEL Routine 02/02/2014 4:16 AM Results for this (NON-FASTING) EDT procedure are in the results section. HEMOGRAM Routine 02/01/2014 3:29 AM Results f or this EDT procedure are i n the results section. DIFFERENTIAL, Routine 02/01/2014 3:29 AM Results for this AUTOMATED EDT procedure are i n the results section. CBC (WITH DIFF) Routine 02/01/2014 3:29 AM EDT PHOSPHORUS Routine 02/01/2014 3:29 AM Results f or this EDT procedure are i n the results section. MAGNESIUM Routine 02/01/2014 3:29 AM Results f or this EDT procedure are i n the results section. BASIC METABOLIC PANEL Routine 02/01/2014 3:29 AM Results for this (NON-FASTING) EDT procedure are in the results section. HEMOGRAM Routine 01/31/2014 4:09 AM Results f or this EDT procedure are i n the results section. DIFFERENTIAL, Routine 01/31/2014 4:09 AM Results for this AUTOMATED EDT procedure are i n the results section. CBC (WITH DIFF) Routine 01/31/2014 4:09 AM EDT PHOSPHORUS Routine 01/31/2014 4:09 AM Results f or this EDT procedure are i n the results section. MAGNESIUM Routine 01/31/2014 4:09 AM Results f or this EDT procedure are i n the results section. BASIC METABOLIC PANEL Routine 01/31/2014 4:09 AM Results for this (NON-FASTING) EDT procedure are in the results section. VANCOMYCIN, TROUGH Timed 01/30/2014 8:25 AM Res ults for this EDT procedure are i n the results section. NUCLEATED RED BLOOD Routine 01/30/2014 3:50 AM Re sults for this CELLS EDT procedure are i n the results section. HEMOGRAM Routine 01/30/2014 3:50 AM Results f or this EDT procedure are i n the results section. DIFFERENTIAL, Routine 01/30/2014 3:50 AM Results for this AUTOMATED EDT procedure are i n the results section. LACTATE, WHOLE BLOOD, Routine 01/30/2014 3:50 AM Results for this SEND TO LAB EDT procedure are i n ([facility] the results section. CBC (WITH DIFF) Routine 01/30/2014 3:50 AM EDT PHOSPHORUS Routine 01/30/2014 3:50 AM Results f or this EDT procedure are i n the results section. MAGNESIUM Routine 01/30/2014 3:50 AM Results f or this EDT procedure are i n the results section. BASIC METABOLIC PANEL Routine 01/30/2014 3:50 AM Results for this (NON-FASTING) EDT procedure are in the results section. LACTATE, WHOLE BLOOD, Routine 01/29/2014 2:35 AM Results for this SEND TO LAB EDT procedure are i n ([facility] the results section. HEMICOLECTOMY, WITH Routine 01/29/2014 1:12 AM ILEOSTOMY EDT SURGICAL PATHOLOGY Routine 01/29/2014 12:01 Resul ts for this REPORT AM EDT procedure are i n the results section. SPECIMEN TO PATHOLOGY Routine 01/29/2014 12:00 Re sults for this AM EDT procedure are i n the results section. HEMICOLECTOMY, WITH 01/28/2014 10:22 pneumatosis ILEOSTOMY (VU PM EDT 15.61) @EXPLORATORY 01/28/2014 10:22 pneumatosis LAPAROTOMY, PM EDT WITH/WITHOUT BIOPSY(S) (VU 12.54) EXPLORATORY Routine 01/28/2014 9:38 PM LAPAROTOMY, EDT WITH/WITHOUT BIOPSY(S) BLOOD CULTURE STAT 01/28/2014 8:40 PM Results for this EDT procedure are i n the results section. HEMOGRAM STAT 01/28/2014 7:05 PM Results f or this EDT procedure are i n the results section. DIFFERENTIAL, STAT 01/28/2014 7:05 PM Results for this AUTOMATED EDT procedure are i n the results section. BLUE TUBE HOLD STAT 01/28/2014 7:05 PM Results for this EDT procedure are i n the results section. CREATININE STAT 01/28/2014 7:05 PM Results f or this EDT procedure are i n the results section. ABO/RH TYPING STAT 01/28/2014 7:05 PM Results for this EDT procedure are i n the results section. BLOOD CULTURE STAT 01/28/2014 7:05 PM Results for this EDT procedure are i n the results section. CBC (WITH DIFF) STAT 01/28/2014 7:05 PM EDT ANTIBODY SCREEN STAT 01/28/2014 7:05 PM Result s for this EDT procedure are i n the results section. TYPE AND SCREEN STAT 01/28/2014 7:05 PM ([facility]ICOLE) EDT BUN STAT 01/28/2014 7:05 PM Results f or this EDT procedure are i n the results section. GLUCOSE, RANDOM STAT 01/28/2014 7:05 PM Result s for this EDT procedure are i n the results section. CK STAT 01/28/2014 7:05 PM Results f or this EDT procedure are i n the results section. HEPATIC FUNCTION STAT 01/28/2014 7:05 PM Resul ts for this PANEL EDT procedure are i n the results section. ELECTROLYTES PANEL STAT 01/28/2014 7:05 PM Res ults for this EDT procedure are i n the results section. LACTATE, WHOLE BLOOD, STAT 01/28/2014 6:54 PM Results for this SEND TO LAB EDT procedure are i n ([facility]) the results section. documented in this encounter Results (ABNORMAL) Differential, Automated (02/03/2014 3:26 AM EDT) [facility] Method Time Signature Neutrophils % 56.6 34.0 - CERNER 71.0 % MILLENNIUM Neutr Abs (ANC) 6.93 (H) 1.50 - CERNER 6.30 MILLENNIUM x10(3)/mc L Lymphocytes % 31.4 19.0 - CERNER 53.0 % MILLENNIUM Lymphocytes Abs 3.8 (H) 1.0 - 3.6 CERNER x10(3)/mc MILLENNIUM L Monocytes % 8.2 4.0 - CERNER 13.0 % MILLENNIUM Monocyte Abs 1.0 0.2 - 1.0 CERNER x10(3)/mc MILLENNIUM L Eosinophils % 1.6 0.0 - 7.0 CERNER % MILLENNIUM Eosinophils Abs 0.2 0.0 - 0.5 CERNER x10(3)/mc MILLENNIUM L Basophils % 0.2 0.0 - 2.0 CERNER % MILLENNIUM Basophils Abs 0.0 0.0 - 0.2 CERNER x10(3)/mc MILLENNIUM L Immature Gran % 2.00 (H) 0.00 - CERNER 0.66 % MILLENNIUM Comment: Immature granulocytes(IG's)percentage an d absolute count will include metamyelocytes, myelocytes, and promyelo cytes. Blood smears from CBCs yielding IG's will be scanned manually for concor dance. If this scan disagrees with the automated IG or if promyelocytes are not ed, a manual differential will be performed. Helen Gran Abs 0.25 (H) 0.00 - 0.05 x10(3)/mcL CER NER MILLENNIUM Specimen Anatomical Collection Method Collection Time Receive d Time (Source) Location / / Volume Laterality Blood specimen 02/03/2014 3:26 AM 014 3:58 (specimen) EDT AM EDT Resulting Agency Comment Spec In Lab Janene Garcia MD HEMATOLOGY ORDERABLES Performing Organization Address City/State/Z[place] [address] CERNER MILLENNIUM (ABNORMAL) Hemogram (02/03/2014 3:26 AM EDT) P athologist Signature WBC 12.2 (H) 4.0 - 10.0 CERNER x10(3)/mcL MILLENNIUM RBC 4.04 3.93 - CERNER 5.22 MILLENNIUM x10(6)/mcL Hemoglobin 10.9 (L) 11.2 - CERNER 15.7 gm/dL MILLENNIUM Hematocrit 33.5 (L) 34.0 - CERNER 45.0 % MILLENNIUM MCV 82.9 79.0 - CERNER 94.0 fL [facility] M[facility] 27.0 26.6 - CERNER 32.2 pg MILLENNIUM MCHC 32.5 32.0 - CERNER 36.5 gm/dL [facility] Platelets 225 145 - 370 CERNER x10(3)/mcL MILLENNIUM RDWSD 47.8 (H) 35.0 - C[facility] 46.0 fL [facility] RDW[facility] 16.2 (H) 10.9 - CERNER 14.4 % MILLENNIUM MPV 9.8 9.0 - 12.0 [facility] fL [facility] Specimen Anatomical Collection Method Collection Time Receive d Time (Source) Location / / Volume Laterality Blood specimen 02/03/2014 3:26 AM 014 3:58 (specimen) EDT AM EDT Resulting Agency Comment Spec In Lab Janene Garcia MD HEMATOLOGY ORDERABLES Performing Organization Address City/[facility] Phon e Number [address] CERNER MILLENNIUM Phosphorus (02/03/2014 3:26 AM EDT) P athologist Signature Phosphorus 3.3 2.5 - 4.5 CERNER mg/dL [facility] Specimen Anatomical Collection Method Collection Time Receive d Time (Source) Location / / Volume Laterality Blood specimen 02/03/2014 3:26 AM 014 3:58 (specimen) EDT AM EDT Resulting Agency Comment Spec In Lab Deepthi Alexander MD CHEMISTRY ORDERABLES Performing Organization Address City/[facility]/ZIP Code Phon e Number [address] CERNER MILLENNIUM Magnesium (02/03/2014 3:26 AM EDT) P athologist Signature Magnesium 0.77 0.69 - 1.07 CERNER mmol/L [facility] Specimen Anatomical Collection Method Collection Time Receive d Time (Source) Location / / Volume Laterality Blood specimen 02/03/2014 3:26 AM 014 3:58 (specimen) EDT AM EDT Resulting Agency Comment Spec In Lab Deepthi Alexander MD CHEMISTRY ORDERABLES Performing Organization Address City/[facility] [place] [address] CERNER MILLENNIUM (ABNORMAL) Basic Metabolic Panel (non-fasting) (02/03/2014 3:26 AM EDT) athologist Signature Glucose Lvl 85 60 - 199 CERNER mg/dL MILLENNIUM Comment: Diabetes: >=200 mg/dL plus symp toms BUN 17 8 - 18 mg/dL CERNER MILLENNIUM Creatinine 0.73 0.70 - 1.20 mg/dL CERNER MILL ENNIUM Comment: Please note that the pediatric reference intervals supplied above were not validated at [facility]. Results from pediatri c patients should be interpreted in conjunction to the patient's age, height and muscle mass. Sodium 136 135 - 145 mmol/L CERNER ARIS NIUM Potassium 3.3 (L) 3.5 - 5.0 mmol/L CERNER ARIS NIUM Comment: Please note: ??Patients with WBC >100,00 0 may have falsely elevated Potassium levels. ??For accurate Potassium quantif ication in these patients send serum separator tube (gold top) for subsequent determinations. ??Contact the Clinical Chemistry Laboratory if there are any qu estions. Chloride 100 98 - 107 mmol/L CERNER MILLENN IUM CO2 25 22 - 31 mmol/L CERNER MILLENNI UM Anion Gap 11 5 - 15 mmol/L CERNER MILLENNIU M Calcium 9.0 8.5 - 10.5 mg/dL CERNER ARIS NIUM [...] the following links into your internet browser. http://www.nkdep.nih.gov/lab-evaluation. shtml http://www.kidney.org/professionals/ Specimen Anatomical Collection Method Collection Time Receive d Time (Source) Location / / Volume Laterality Blood specimen 02/03/2014 3:26 AM 014 3:58 (specimen) EDT AM EDT Resulting Agency Comment Spec In Lab Janene Garcia MD CHEMISTRY ORDERABLES Performing Organization Address City/State/ZIP Code Phon e Number [place] [id number] CERNER MILLENNIUM (ABNORMAL) Differential, Automated (02/02/2014 4:16 AM EDT) [facility] Method Time Signature Neutrophils % 71.9 (H) 34.0 - CERNER 71.0 % MILLENNIUM Neutr Abs (ANC) 9.22 (H) 1.50 - CERNER 6.30 MILLENNIUM x10(3)/mc L Lymphocytes % 17.0 (L) 19.0 - CERNER 53.0 % MILLENNIUM Lymphocytes Abs 2.2 1.0 - 3.6 CERNER x10(3)/mc MILLENNIUM L Monocytes % 8.4 4.0 - CERNER 13.0 % MILLENNIUM Monocyte Abs 1.1 (H) 0.2 - 1.0 CERNER x10(3)/mc MILLENNIUM L Eosinophils % 0.7 0.0 - 7.0 CERNER % MILLENNIUM Eosinophils Abs 0.1 0.0 - 0.5 CERNER x10(3)/mc MILLENNIUM L Basophils % 0.2 0.0 - 2.0 CERNER % MILLENNIUM Basophils Abs 0.0 0.0 - 0.2 CERNER x10(3)/mc MILLENNIUM L Immature Gran % 1.80 (H) 0.00 - CERNER 0.66 % MILLENNIUM Comment: Immature granulocytes(IG's)percentage an d absolute count will include metamyelocytes, myelocytes, and promyelo cytes. Blood smears from CBCs yielding IG's will be scanned manually for concor dance. If this scan disagrees with the automated IG or if promyelocytes are not ed, a manual differential will be performed. Helen Gran Abs 0.23 (H) 0.00 - 0.05 x10(3)/mcL CER NER MILLENNIUM Specimen Anatomical Collection Method Collection Time Receive d Time (Source) Location / / Volume Laterality Blood specimen 02/02/2014 4:16 AM 014 4:32 (specimen) EDT AM EDT Resulting Agency Comment Spec In Lab Jannee Garcia MD HEMATOLOGY ORDERABLES Performing Organization Address City/[facility]/[place] [address] CERNER MILLENNIUM (ABNORMAL) Hemogram (02/02/2014 4:16 AM EDT) P athologist Signature WBC 12.8 (H) 4.0 - 10.0 CERNER x10(3)/mcL MILLENNIUM RBC 4.61 3.93 - CERNER 5.22 MILLENNIUM x10(6)/mcL Hemoglobin 12.4 11.2 - CERNER 15.7 gm/dL MILLENNIUM Hematocrit 37.9 34.0 - CERNER 45.0 % MILLENNIUM MCV 82.2 79.0 - CERNER 94.0 fL MILLENNIUM MCH 26.9 26.6 - CERNER 32.2 pg MILLENNIUM MCHC 32.7 32.0 - CERNER 36.5 gm/dL MILLENNIUM Platelets 230 145 - 370 CERNER x10(3)/mcL MILLENNIUM RDWSD 47.7 (H) 35.0 - CERNER 46.0 fL MILLENNIUM RDWCV 16.4 (H) 10.9 - CERNER 14.4 % MILLENNIUM MPV 9.3 9.0 - 12.0 CERNER fL MILLENNIUM Specimen Anatomical Collection Method Collection Time Receive d Time (Source) Location / / Volume Laterality Blood specimen 02/02/2014 4:16 AM 014 4:32 (specimen) EDT AM EDT Resulting Agency Comment Spec In Lab Janene Garcia MD HEMATOLOGY ORDERABLES Performing Organization Address City/[facility]/[place] [address] CERNER MILLENNIUM (ABNORMAL) Phosphorus (02/02/2014 4:16 AM EDT) P athologist Signature Phosphorus 4.6 (H) 2.5 - 4.5 CERNER mg/dL MILLENNIUM Specimen Anatomical Collection Method Collection Time Receive d Time (Source) Location / / Volume Laterality Blood specimen 02/02/2014 4:16 AM 014 4:32 (specimen) EDT AM EDT Resulting Agency Comment Spec In Lab Deepthi Alexander MD CHEMISTRY ORDERABLES Performing Organization Address City/[facility]/ZIP Code Phon e Number [address] CERNER MILLENNIUM Magnesium (02/02/2014 4:16 AM EDT) athologist Signature Magnesium 0.92 0.69 - 1.07 CERNER mmol/L MILLENNIUM Specimen Anatomical Collection Method Collection Time Receive d Time (Source) Location / / Volume Laterality Blood specimen 02/02/2014 4:16 AM 014 4:32 (specimen) EDT AM EDT Resulting Agency Comment Spec In Lab Deepthi Alexander MD CHEMISTRY ORDERABLES Performing Organization Address City/[facility] Phon e Number [address] CERNER MILLENNIUM Basic Metabolic Panel (non-fasting) (02/02/2014 4:16 AM EDT) athologist Signature Glucose Lvl 104 60 - 199 CERNER mg/dL MILLENNIUM Comment: Diabetes: >=200 mg/dL plus symp toms BUN 13 8 - 18 mg/dL CERNER MILLENNIUM Creatinine 0.72 0.70 - 1.20 mg/dL CERNER MILL ENNIUM Comment: Please note that the pediatric reference intervals supplied above were not validated at [facility]. Results from pediatri c patients should be interpreted in conjunction to the patient's age, height and muscle mass. Sodium 136 135 - 145 mmol/L CERNER ARIS NIUM [...] ARIS NIUM Estimated GFR >60 >=60 CERNER STEPHANIEU M Comment: This estimated GFR (eGFR) value [...] the following links into your internet browser. http://www.nkdep.nih.gov/lab-evaluation. shtml http://www.kidney.org/professionals/ Specimen Anatomical Collection Method Collection Time Receive d Time (Source) Location / / Volume Laterality Blood specimen 02/02/2014 4:16 AM 014 4:32 (specimen) EDT AM EDT Resulting Agency Comment Spec In Lab Janene Garcia MD CHEMISTRY ORDERABLES Performing Organization Address City/State/[place] [address] MICHELLE BABCOCKENNIUM (ABNORMAL) Differential, Automated (02/01/2014 3:29 AM EDT) [facility] Method Time Signature Neutrophils % 65.8 34.0 - CERNER 71.0 % MILLENNIUM Neutr Abs (ANC) 8.19 (H) 1.50 - CERNER 6.30 MILLENNIUM x10(3)/mc L Lymphocytes % 22.3 19.0 - CERNER 53.0 % MILLENNIUM Lymphocytes Abs 2.8 1.0 - 3.6 CERNER x10(3)/mc MILLENNIUM L Monocytes % 10.3 4.0 - CERNER 13.0 % MILLENNIUM Monocyte Abs 1.3 (H) 0.2 - 1.0 CERNER x10(3)/mc MILLENNIUM L Eosinophils % 0.3 0.0 - 7.0 CERNER % MILLENNIUM Eosinophils Abs 0.0 0.0 - 0.5 CERNER x10(3)/mc MILLENNIUM L Basophils % 0.2 0.0 - 2.0 CERNER % MILLENNIUM Basophils Abs 0.0 0.0 - 0.2 CERNER x10(3)/mc MILLENNIUM L Immature Gran % 1.10 (H) 0.00 - CERNER 0.66 % MILLENNIUM Comment: Immature granulocytes(IG's)percentage an d absolute count will include metamyelocytes, myelocytes, and promyelo cytes. Blood smears from CBCs yielding IG's will be scanned manually for concor dance. If this scan disagrees with the automated IG or if promyelocytes are not ed, a manual differential will be performed. Helen Gran Abs 0.14 (H) 0.00 - 0.05 x10(3)/mcL CER NER MILLENNIUM Specimen Anatomical Collection Method Collection Time Receive d Time (Source) Location / / Volume Laterality Blood specimen 02/01/2014 3:29 AM 014 3:33 (specimen) EDT AM EDT Resulting Agency Comment Spec In Lab Janene Garcia MD HEMATOLOGY ORDERABLES Performing Organization Address City/State/ZIP Code Phon e Number [place] [id number] CERNER MILLENNIUM (ABNORMAL) Hemogram (02/01/2014 3:29 AM EDT) P athologist Signature WBC 12.4 (H) 4.0 - 10.0 CERNER x10(3)/mcL MILLENNIUM RBC 4.74 3.93 - CERNER 5.22 MILLENNIUM x10(6)/mcL Hemoglobin 12.7 11.2 - CERNER 15.7 gm/dL MILLENNIUM Hematocrit 38.4 34.0 - CERNER 45.0 % MILLENNIUM MCV 81.0 79.0 - CERNER 94.0 fL MILLENNIUM MCH 26.8 26.6 - CERNER 32.2 pg MILLENNIUM MCHC 33.1 32.0 - CERNER 36.5 gm/dL MILLENNIUM Platelets 184 145 - 370 CERNER x10(3)/mcL MILLENNIUM RDWSD 46.0 35.0 - CERNER 46.0 fL MILLENNIUM RDWCV 16.1 (H) 10.9 - CERNER 14.4 % MILLENNIUM MPV 9.1 9.0 - 12.0 CERNER fL MILLENNIUM Specimen Anatomical Collection Method Collection Time Receive d Time (Source) Location / / Volume Laterality Blood specimen 02/01/2014 3:29 AM 014 3:33 (specimen) EDT AM EDT Resulting Agency Comment Spec In Lab Janene Garcia MD HEMATOLOGY ORDERABLES Performing Organization Address City/[facility]/[place] [address] CERNER MILLENNIUM Phosphorus (02/01/2014 3:29 AM EDT) athologist Signature Phosphorus 4.5 2.5 - 4.5 CERNER mg/dL MILLENNIUM Specimen Anatomical Collection Method Collection Time Receive d Time (Source) Location / / Volume Laterality Blood specimen 02/01/2014 3:29 AM 014 3:33 (specimen) EDT AM EDT Resulting Agency Comment Spec In Lab Deepthi Alexander MD CHEMISTRY ORDERABLES Performing Organization Address City/[facility]/[place] [address] CERNER MILLENNIUM Magnesium (02/01/2014 3:29 AM EDT) athologist Signature Magnesium 0.96 0.69 - 1.07 CERNER mmol/L MILLENNIUM Specimen Anatomical Collection Method Collection Time Receive d Time (Source) Location / / Volume Laterality Blood specimen 02/01/2014 3:29 AM 014 3:33 (specimen) EDT AM EDT Resulting Agency Comment Spec In Lab Deepthi Alexander MD CHEMISTRY ORDERABLES Performing Organization Address City/[facility]/ZIP [facility] [place] [address] CERNER MILLENNIUM (ABNORMAL) Basic Metabolic Panel (non-fasting) (02/01/2014 3:29 AM EDT) P athologist Signature Glucose Lvl 98 60 - 199 CERNER mg/dL MILLENNIUM Comment: Diabetes: >=200 mg/dL plus symp toms BUN 12 8 - 18 mg/dL CERNER MILLENNIUM Creatinine 0.62 (L) 0.70 - 1.20 mg/dL CERNER MILL ENNIUM Comment: Please note that the pediatric reference intervals supplied above were not validated at [facility]. Results from pediatri c patients should be [...] 31 mmol/L CERNER MILLENNI UM Anion Gap 12 5 - 15 mmol/L CERNER MILLENNIU M [...] the following links into your internet browser. http://www.nkdep.nih.gov/lab-evaluation. shtml http://www.kidney.org/professionals/ Specimen Anatomical Collection Method Collection Time Receive d Time (Source) Location / / Volume Laterality Blood specimen 02/01/2014 3:29 AM 014 3:33 (specimen) EDT AM EDT Resulting Agency Comment Spec In Lab Janene Garcia MD CHEMISTRY ORDERABLES Performing Organization Address City/State/Z[place] [address] CERNER MILLENNIUM (ABNORMAL) Differential, Automated (01/31/2014 4:09 AM EDT) [facility] Method Time Signature Neutrophils % 67.7 34.0 - CERNER 71.0 % MILLENNIUM Neutr Abs (ANC) 7.48 (H) 1.50 - CERNER 6.30 MILLENNIUM x10(3)/mc L Lymphocytes % 22.5 19.0 - CERNER 53.0 % MILLENNIUM Lymphocytes Abs 2.5 1.0 - 3.6 CERNER x10(3)/mc MILLENNIUM L Monocytes % 8.5 4.0 - CERNER 13.0 % MILLENNIUM Monocyte Abs 0.9 0.2 - 1.0 CERNER x10(3)/mc MILLENNIUM L Eosinophils % 0.1 0.0 - 7.0 CERNER % MILLENNIUM Eosinophils Abs 0.0 0.0 - 0.5 CERNER x10(3)/mc MILLENNIUM L Basophils % 0.1 0.0 - 2.0 CERNER % MILLENNIUM Basophils Abs 0.0 0.0 - 0.2 CERNER x10(3)/mc MILLENNIUM L Immature Gran % 1.10 (H) 0.00 - CERNER 0.66 % MILLENNIUM Comment: Immature granulocytes(IG's)percentage an d absolute count will include metamyelocytes, myelocytes, and promyelo cytes. Blood smears from CBCs yielding IG's will be scanned manually for concor dance. If this scan disagrees with the automated IG or if promyelocytes are not ed, a manual differential will be performed. Helen Gran Abs 0.12 (H) 0.00 - 0.05 x10(3)/mcL CER NER MILLENNIUM Specimen Anatomical Collection Method Collection Time Receive d Time (Source) Location / / Volume Laterality Blood specimen 01/31/2014 4:09 AM 014 4:29 (specimen) EDT AM EDT Resulting Agency Comment Spec In Lab Janene Garcia MD HEMATOLOGY ORDERABLES Performing Organization Address City/State/ZIP [place] [address] CERNER MILLENNIUM (ABNORMAL) Hemogram (01/31/2014 4:09 AM EDT) P athologist Signature WBC 11.0 (H) 4.0 - 10.0 CERNER x10(3)/mcL MILLENNIUM RBC 3.92 (L) 3.93 - CERNER 5.22 MILLENNIUM x10(6)/mcL Hemoglobin 10.3 (L) 11.2 - CERNER 15.7 gm/dL MILLENNIUM Hematocrit 32.7 (L) 34.0 - CERNER 45.0 % MILLENNIUM MCV 83.4 79.0 - CERNER 94.0 fL MILLENNIUM MCH 26.3 (L) 26.6 - CERNER 32.2 pg MILLENNIUM MCHC 31.5 (L) 32.0 - CERNER 36.5 gm/dL MILLENNIUM Platelets 157 145 - 370 CERNER x10(3)/mcL MILLENNIUM RDWSD 47.2 (H) 35.0 - CERNER 46.0 fL MILLENNIUM RDWCV 16.0 (H) 10.9 - CERNER 14.4 % MILLENNIUM MPV 9.5 9.0 - 12.0 CERNER fL MILLENNIUM Specimen Anatomical Collection Method Collection Time Receive d Time (Source) Location / / Volume Laterality Blood specimen 01/31/2014 4:09 AM 014 4:29 (specimen) EDT AM EDT Resulting Agency Comment Spec In Lab Janene Garcia MD HEMATOLOGY ORDERABLES Performing Organization Address City/State/ZIP Code Phon e Number [address] CERNER MILLENNIUM Phosphorus (01/31/2014 4:09 AM EDT) P athologist Signature Phosphorus 3.4 2.5 - 4.5 CERNER mg/dL [facility] Specimen Anatomical Collection Method Collection Time Receive d Time (Source) Location / / Volume Laterality Blood specimen 01/31/2014 4:09 AM 014 4:29 (specimen) EDT AM EDT Resulting Agency Comment Spec In Lab Deepthi Alexander MD CHEMISTRY ORDERABLES Performing Organization Address City/State/ZIP Code Phon e Number [address] CERNER MILLENNIUM Magnesium (01/31/2014 4:09 AM EDT) P athologist Signature Magnesium 0.98 0.69 - 1.07 CERNER mmol/L MILLENNIUM Specimen Anatomical Collection Method Collection Time Receive d Time (Source) Location / / Volume Laterality Blood specimen 01/31/2014 4:09 AM 014 4:29 (specimen) EDT AM EDT Resulting Agency Comment Spec In Lab Deepthi Alexander MD CHEMISTRY ORDERABLES Performing Organization Address City/State/[place] [address] CERNER MILLENNIUM (ABNORMAL) Basic Metabolic Panel (non-fasting) (01/31/2014 4:09 AM EDT) athologist Signature Glucose Lvl 92 60 - 199 CERNER mg/dL MILLENNIUM Comment: Diabetes: >=200 mg/dL plus symp toms BUN 18 8 - 18 mg/dL CERNER MILLENNIUM Creatinine 0.64 (L) 0.70 - 1.20 mg/dL CERNER MILL ENNIUM Comment: Please note that the pediatric reference intervals supplied above were not validated at [facility]. Results from pediatri c patients should be interpreted in conjunction to the patient's age, height and muscle mass. Sodium 136 135 - 145 mmol/L CERNER ARIS NIUM Potassium 3.8 3.5 - 5.0 mmol/L CERNER ARIS NIUM Comment: Please note: ??Patients with WBC >100,00 0 may have falsely elevated Potassium levels. ??For accurate Potassium quantif ication in these patients send serum separator tube (gold top) for subsequent determinations. ??Contact the Clinical Chemistry Laboratory if there are any qu estions. Chloride 98 98 - 107 mmol/L CERNER MILLENN IUM CO2 31 22 - 31 mmol/L CERNER MILLENNI UM Anion Gap 7 5 - 15 mmol/L CERNER MILLENNIU M [...] the following links into your internet browser. http://www.nkdep.nih.gov/lab-evaluation. shtml http://www.kidney.org/professionals/ Specimen Anatomical Collection Method Collection Time Receive d Time (Source) Location / / Volume Laterality Blood specimen 01/31/2014 4:09 AM 014 4:29 (specimen) EDT AM EDT Resulting Agency Comment Spec In Lab Janene Garcia MD CHEMISTRY ORDERABLES Performing Organization Address [facility] e Number [address] CERNER MILLENNIUM Vancomycin, trough (01/30/2014 8:25 AM EDT) P athologist Signature Vanc Trough 9.6 mg/L CERNER MILLENNIUM Comment: Therapeutic range for complicated infect ions such as bacteremia, endocarditis, osteomyelitis, meningitis, and hospital- acquired pneumonia caused by S. aureus: 15-20 mg/L Therapeutic range for other indications: 10-15 mg/L Toxic: >25 mg/L Reference: Vancomycin Therapeutic Monitoring: José Luis yen and Recommendations from the ASHP, IDSA and SIDP Task Force. ??Am J Health- Syst Pharm. 2009; 66:82-98 Specimen Anatomical Collection Method Collection Time Receive d Time (Source) Location / / Volume Laterality Blood specimen 01/30/2014 8:25 AM 014 8:30 (specimen) EDT AM EDT Resulting Agency Comment Spec In Lab Janene Garcia MD CHEMISTRY ORDERABLES Performing Organization Address [facility] e Number [address] CERNER MILLENNIUM Nucleated Red Blood Cells (01/30/2014 3:50 AM EDT) P athologist Signature nRBC % Auto 0.0 0.0 - 0.2 CERNER % MILLENNIUM nRBC Abs Auto 0.000 0.000 - CERNER 0.012 MILLENNIUM x10(3)/mcL Specimen Anatomical Collection Method Collection Time Receive d Time (Source) Location / / Volume Laterality Blood specimen 01/30/2014 3:50 AM 014 4:00 (specimen) EDT AM EDT Resulting Agency Comment Spec In Lab Janene Garcia MD HEMATOLOGY ORDERABLES Performing Organization Address City/State/ZIP Code Phon e Number [place] [id number] CERNER MILLENNIUM (ABNORMAL) Differential, Automated (01/30/2014 3:50 AM EDT) [facility] Method Time Signature Neutrophils % 86.7 (H) 34.0 - CERNER 71.0 % MILLENNIUM Neutr Abs (ANC) 13.81 (H) 1.50 - CERNER 6.30 MILLENNIUM x10(3)/mc L Lymphocytes % 7.5 (L) 19.0 - CERNER 53.0 % MILLENNIUM Lymphocytes Abs 1.2 1.0 - 3.6 CERNER x10(3)/mc MILLENNIUM L Monocytes % 4.9 4.0 - CERNER 13.0 % MILLENNIUM Monocyte Abs 0.8 0.2 - 1.0 CERNER x10(3)/mc MILLENNIUM L Eosinophils % 0.0 0.0 - 7.0 CERNER % MILLENNIUM Eosinophils Abs 0.0 0.0 - 0.5 CERNER x10(3)/mc MILLENNIUM L Basophils % 0.1 0.0 - 2.0 CERNER % MILLENNIUM Basophils Abs 0.0 0.0 - 0.2 CERNER x10(3)/mc MILLENNIUM L Immature Gran % 0.80 (H) 0.00 - CERNER 0.66 % MILLENNIUM Comment: Immature granulocytes(IG's)percentage an d absolute count will include metamyelocytes, myelocytes, and promyelo cytes. Blood smears from CBCs yielding IG's will be scanned manually for concor dance. If this scan disagrees with the automated IG or if promyelocytes are not ed, a manual differential will be performed. Helen Gran Abs 0.13 (H) 0.00 - 0.05 x10(3)/mcL CER NER MILLENNIUM Specimen Anatomical Collection Method Collection Time Receive d Time (Source) Location / / Volume Laterality Blood specimen 01/30/2014 3:50 AM 014 4:00 (specimen) EDT AM EDT Resulting Agency Comment Spec In Lab Janene Garcia MD HEMATOLOGY ORDERABLES Performing Organization Address City/State/Z[place] [address] CERNER MILLENNIUM (ABNORMAL) Hemogram (01/30/2014 3:50 AM EDT) P athologist Signature WBC 15.9 (H) 4.0 - 10.0 CERNER x10(3)/mcL MILLENNIUM RBC 4.47 3.93 - CERNER 5.22 MILLENNIUM x10(6)/mcL Hemoglobin 11.9 11.2 - CERNER 15.7 gm/dL MILLENNIUM Hematocrit 36.8 34.0 - CERNER 45.0 % MILLENNIUM MCV 82.3 79.0 - CERNER 94.0 fL MILLENNIUM MCH 26.6 26.6 - CERNER 32.2 pg MILLENNIUM MCHC 32.3 32.0 - CERNER 36.5 gm/dL MILLENNIUM Platelets 210 145 - 370 CERNER x10(3)/mcL MILLENNIUM RDWSD 46.6 (H) 35.0 - CERNER 46.0 fL MILLENNIUM RDWCV 16.0 (H) 10.9 - CERNER 14.4 % MILLENNIUM MPV 9.6 9.0 - 12.0 CERNER fL MILLENNIUM Specimen Anatomical Collection Method Collection Time Receive d Time (Source) Location / / Volume Laterality Blood specimen 01/30/2014 3:50 AM 014 4:00 (specimen) EDT AM EDT Resulting Agency Comment Spec In Lab Janene Garcia MD HEMATOLOGY ORDERABLES Performing Organization Address City/State/Z[place] [address] CERNER MILLENNIUM Phosphorus (01/30/2014 3:50 AM EDT) P athologist Signature Phosphorus 3.5 2.5 - 4.5 CERNER mg/dL MILLENNIUM Specimen Anatomical Collection Method Collection Time Receive d Time (Source) Location / / Volume Laterality Blood specimen 01/30/2014 3:50 AM 014 4:00 (specimen) EDT AM EDT Resulting Agency Comment Spec In Lab Deepthi Alexander MD CHEMISTRY ORDERABLES Performing Organization Address City/State/ZIP Code Phon e Number [address] CERNER MILLENNIUM Magnesium (01/30/2014 3:50 AM EDT) athologist Signature Magnesium 0.90 0.69 - 1.07 CERNER mmol/L MILLENNIUM Specimen Anatomical Collection Method Collection Time Receive d Time (Source) Location / / Volume Laterality Blood specimen 01/30/2014 3:50 AM 014 4:00 (specimen) EDT AM EDT Resulting Agency Comment Spec In Lab Deepthi Alexander MD CHEMISTRY ORDERABLES Performing Organization Address City/[facility]/ZIP Code Phon e Number [address] CERNER MILLENNIUM (ABNORMAL) Basic Metabolic Panel (non-fasting) (01/30/2014 3:50 AM EDT) athologist Signature Glucose Lvl 128 60 - 199 CERNER mg/dL MILLENNIUM Comment: Diabetes: >=200 mg/dL plus symp toms BUN 12 8 - 18 mg/dL CERNER MILLENNIUM Creatinine 0.68 (L) 0.70 - 1.20 mg/dL CERNER MILL ENNIUM Comment: Please note that the pediatric reference intervals supplied above were not validated at [facility]. Results from pediatri c patients should be interpreted in conjunction to the patient's age, height and muscle mass. Sodium 138 135 - 145 mmol/L CERNER ARIS NIUM Potassium 4.2 3.5 - 5.0 mmol/L CERNER ARIS NIUM Comment: Please note: ??Patients with WBC >100,00 0 may have falsely elevated Potassium levels. ??For accurate Potassium quantif ication in these patients send serum separator tube (gold top) for subsequent determinations. ??Contact the Clinical Chemistry Laboratory if there are any qu estions. Chloride 99 98 - 107 mmol/L CERNER MILLENN IUM CO2 25 22 - 31 mmol/L CERNER MILLENNI UM [...] the following links into your internet browser. http://www.nkdep.nih.gov/lab-evaluation. shtml http://www.kidney.org/professionals/ Specimen Anatomical Collection Method Collection Time Receive d Time (Source) Location / / Volume Laterality Blood specimen 01/30/2014 3:50 AM 014 4:00 (specimen) EDT AM EDT Resulting Agency Comment Spec In Lab Janene Garcia MD CHEMISTRY ORDERABLES Performing Organization Address City/[facility]/ZIP Code Phon e Number [address] CERNER SADIQENNIUM (ABNORMAL) Lactate, whole blood, send to lab (01/30/2014 3:50 AM EDT) P athologist Signature Lactate WB 3.3 (H) 0.5 - 2.2 CERNER mmol/L MILLENNIUM Specimen Anatomical Collection Method Collection Time Receive d Time (Source) Location / / Volume Laterality Blood specimen 01/30/2014 3:50 AM 014 4:00 (specimen) EDT AM EDT Resulting Agency Comment Spec In Lab Janene Garcia MD CHEMISTRY ORDERABLES Performing Organization Address City/[facility] Phon e Number [address] CERNER MILLENNIUM (ABNORMAL) Lactate, whole blood, send to lab (01/29/2014 2:35 AM EDT) P athologist Signature Lactate WB 3.9 (H) 0.5 - 2.2 CERNER mmol/L MILLENNIUM Specimen Anatomical Collection Method Collection Time Receive d Time (Source) Location / / Volume Laterality Blood specimen 01/29/2014 2:35 AM 014 2:40 (specimen) EDT AM EDT Resulting Agency Comment Spec In Lab Deepthi Alexander MD CHEMISTRY ORDERABLES Performing Organization Address City/State/ZIP [place] [address] [facility] Surgical Pathology Report (01/29/2014 12:01 AM EDT) Component Value Ref Test Analysis Performed At [facility] gist Range Method Time Signature Surgical [facility] Pathology ? [facility] Report ? Provider: ?? DEEPTHI ALEXANDER ?Pt. Name: ?? SHAHEED CARTERMONIQUE Ag ? Acc #: ?[id number] ?Pt. MRN: ?[id number] ? Col Date: ?? 4 ? /Sex: ?1975,(38 years),Female ? Rec Date: ?? 01/29/2014 ? LOC: ?3WST ? SURGICAL PATHOLOGY ? ---Pathologic Diagnosis--- ? Right colon, resection: ?Right colon with pneumatosis coli. ?Appendix negative for diagnostic abnormality. ? CR-0 ? 02/05/14 ? [facility] ? 02/08/14 Verified by: ? Jim Anderson MD ? Pathologist ? (Electronic Si gnature) ? The attending pathologist whose signature appears o n this report has ? reviewed all diagnostic slides and has edited the hai ss and/or ? microscopic portion of the report in rendering the fi nal pathologic ? diagnosis. ? ---Gross Description--- ? abeled/Fixative: Right colon, fresh. ? SPECIMEN DESCRIPTION ? Resection Specimen: Right hemicolectomy to include te rminal ileum, ? appendix, cecum and ascending colon. ? Overall Size: 25 x 9 x 8cm. ? Length/Diameter: 25 cm in length x 9 cm in average colonic diameter. ? External Architecture: Preserved. ? Serosa: Mendiola-pink, smooth and glistening. ? Mucosa: Mendiola and pink with a normal folding architecture. There is a single ? 0.3 cm polyp in the ascending col on. ??No other lesions are identified. ? Wall Thickness: 0.1 cm. ? Margins: Uninvolved. ? Appendix: 5.0 x 0.6 c m, the serosal surface has injected vasculature but is ? otherwise mendiola-pink, s mooth and glistening. ??The wall averages 0.1 cm in ? diameter. ??The lumen contains fecalith. ? Sections/Processing: (A1) margins; (A2) polyp in ascending colon; (A3-A4) ? insurance healthcare representative sectio ns; (A5) ileocecal valve; (A6) appendix. (R6) ??iwm ? ---Clinical Information--- ? Specimen Submitted: ? A - Right colon ? Clinical History: ? Pneumatosis ? [facility] ? Provider: ?? DEEPTHI ALEXANDER ?Pt. Name: ?? MONIQUE BARTON ? Acc #: ?[id number] ?Pt. MRN: ?[id number] ? Col Date: ?? 4 ? /Sex: ?1975,(38 years),Female ? Rec Date: ?? 01/29/2014 ? LOC: ?3WST ? SURGICAL PATHOLOGY ? Clinical Diagnosis: ? Same Specimen (Source) Anatomical Collection Method Collection Time Re ceived Time Location / / Volume Laterality 01/29/2014 12:01 AM EDT Deepthi Alexander MD PATHOLOGY/CYTOLOGY ORDERABLE S Performing Organization Address [facility]/[place] [address] CERNER MILLENNIUM Specimen to Pathology (surgical or derm) (01/29/2014 12:00 AM EDT) Specimen (Source) Anatomical Collection Method Collection Time Re ceived Time Location / / Volume Laterality AP Specimen 01/29/2014 01/29/2014 12:0 0 AM EDT Narrative CERNER MILLENNIUM - 01/29/2014 12:00 AM EDT Specimen requisition ordered. ??Separate Pathology report to follow Deepthi Alexander MD PATHOLOGY/CYTOLOGY ORDERABLE S Performing Organization Address City/[facility] [place] [address] CERNER MILLENNIUM Blood culture (01/28/2014 8:40 PM EDT) [facility] gist Method Time Signature Blood Culture CERNER ? Patient Name: MONIQUE MELGAR ?Ordered By: JANENE GARCIA MILLENNIUM ? MR#: [id number] ?LOC: ??3WST ? /Sex: ??1975 (38 years), ? Female ? PROCEDURE: Blood Culture ?SOURCE: Blood ? COLLECTED: 01/28/2014 20:40 ? STARTED: 01/28/2014 21:01 ? FINAL REPORT ? Final Report ? Verified:02/02/2014 23:01 ? No growth at 5 days. ? PRELIMINARY REPORT ? Preliminary Report ? Verified:02/01/2014 23:01 ? No growth at 4 days. ? Specimen Anatomical Collection Method Collection Time Receive d Time (Source) Location / / Volume Laterality Blood specimen 01/28/2014 8:40 PM 014 9:01 (specimen) EDT PM EDT Resulting Agency Comment Spec In Lab Janene Garcia MD MICROBIOLOGY - BLOOD ORDERAB LES Performing Organization Address City/[facility]/ZIP Code Phon e Number [address] [facility] Blue Tube HOLD (01/28/2014 7:05 PM EDT) athologist Signature Blue Hold Sample in [facility] lab. [facility] Specimen Anatomical Collection Method Collection Time Receive d Time (Source) Location / / Volume Laterality Blood specimen 01/28/2014 7:05 PM 014 7:20 (specimen) EDT PM EDT Janene Garcia MD HEMATOLOGY ORDERABLES Performing Organization Address City/[facility]/[place] [address] [facility] MILLENNIUM Antibody screen (01/28/2014 7:05 PM EDT) Analysis Performed At Patho logist Time Signature Ab Screen Negative [facility] Expires at [id number] [facility] 235 on: [facility] Specimen Anatomical Collection Method Collection Time Receive d Time (Source) Location / / Volume Laterality Blood specimen 01/28/2014 7:05 PM 014 7:20 (specimen) EDT PM EDT Resulting Agency Comment Spec In Lab Janene Garcia MD BLOOD BANK ORDERABLES Performing Organization Address City/State/ZIP Code Phon e Number [address] CERNER MILLENNIUM ABO/Rh Typing (01/28/2014 7:05 PM EDT) P athologist Signature ABORh Type O Pos CERNER MILLENNIUM Specimen Anatomical Collection Method Collection Time Receive d Time (Source) Location / / Volume Laterality Blood specimen 01/28/2014 7:05 PM 014 7:20 (specimen) EDT PM EDT Resulting Agency Comment Spec In Lab Janene Garcia MD BLOOD BANK ORDERABLES Performing Organization Address City/[facility]/ZIP Code Phon e Number [address] CERNER MILLENNIUM (ABNORMAL) Differential, Automated (01/28/2014 7:05 PM EDT) Patholo gist Method Time Signature Neutrophils % 85.4 (H) 34.0 - CERNER 71.0 % MILLENNIUM Neutr Abs (ANC) 12.91 (H) 1.50 - CERNER 6.30 MILLENNIUM x10(3)/mc L Lymphocytes % 10.0 (L) 19.0 - CERNER 53.0 % MILLENNIUM Lymphocytes Abs 1.5 1.0 - 3.6 CERNER x10(3)/mc MILLENNIUM L Monocytes % 3.5 (L) 4.0 - CERNER 13.0 % MILLENNIUM Monocyte Abs 0.5 0.2 - 1.0 CERNER x10(3)/mc MILLENNIUM L Eosinophils % 0.1 0.0 - 7.0 CERNER % MILLENNIUM Eosinophils Abs 0.0 0.0 - 0.5 CERNER x10(3)/mc MILLENNIUM L Basophils % 0.1 0.0 - 2.0 CERNER % MILLENNIUM Basophils Abs 0.0 0.0 - 0.2 CERNER x10(3)/mc MILLENNIUM L Immature Gran % 0.90 (H) 0.00 - CERNER 0.66 % MILLENNIUM Comment: Immature granulocytes(IG's)percentage an d absolute count will include metamyelocytes, myelocytes, and promyelo cytes. Blood smears from CBCs yielding IG's will be scanned manually for concor dance. If this scan disagrees with the automated IG or if promyelocytes are not ed, a manual differential will be performed. Helen Gran Abs 0.13 (H) 0.00 - 0.05 x10(3)/mcL CER NER MILLENNIUM Specimen Anatomical Collection Method Collection Time Receive d Time (Source) Location / / Volume Laterality Blood specimen 01/28/2014 7:05 PM 014 7:20 (specimen) EDT PM EDT Resulting Agency Comment Spec In Lab Janene Garcia MD HEMATOLOGY ORDERABLES Performing Organization Address City/[facility] Code Phon e Number JESUS MANUEL Sean [place] [id number] CERNER MILLENNIUM (ABNORMAL) Hemogram (01/28/2014 7:05 PM EDT) P athologist Signature WBC 15.1 (H) 4.0 - 10.0 CERNER x10(3)/mcL MILLENNIUM RBC 5.25 (H) 3.93 - CERNER 5.22 MILLENNIUM x10(6)/mcL Hemoglobin 14.0 11.2 - CERNER 15.7 gm/dL MILLENNIUM Hematocrit 42.8 34.0 - CERNER 45.0 % MILLENNIUM MCV 81.5 79.0 - CERNER 94.0 fL MILLENNIUM MCH 26.7 26.6 - CERNER 32.2 pg MILLENNIUM MCHC 32.7 32.0 - CERNER 36.5 gm/dL MILLENNIUM Platelets 218 145 - 370 CERNER x10(3)/mcL MILLENNIUM RDWSD 45.1 35.0 - CERNER 46.0 fL MILLENNIUM RDWCV 15.7 (H) 10.9 - CERNER 14.4 % MILLENNIUM MPV 9.5 9.0 - 12.0 CERNER fL MILLENNIUM Specimen Anatomical Collection Method Collection Time Receive d Time (Source) Location / / Volume Laterality Blood specimen 01/28/2014 7:05 PM 014 7:20 (specimen) EDT PM EDT Resulting Agency Comment Spec In Lab Janene Garcia MD HEMATOLOGY ORDERABLES Performing Organization Address City/State/ZIP Code Phon e Number JESUS MANUEL [facility] [place] [address] MICHELLE ESCALANTE Blood culture (01/28/2014 7:05 PM EDT) [facility] Method Time Signature Blood Culture [facility] ? Patient Name: MONIQUE MELGAR ?Ordered By: JANENE GARCIA ? MR#: [id number] ?LOC: ??[id number] ? /Sex: ??1975 (38 years), ? Female ? PROCEDURE: Blood Culture ?SOURCE: Blood ? COLLECTED: 01/28/2014 19:05 ?FREE TEXT SOURCE: R ac ? STARTED: 01/28/2014 19:31 ? FINAL REPORT ? Final Report ? Verified:02/02/2014 23:01 ? No growth at 5 days. ? PRELIMINARY REPORT ? Preliminary Report ? Verified:02/01/2014 23:01 ? No growth at 4 days. ? Specimen Anatomical Collection Method Collection Time Receive d Time (Source) Location / / Volume Laterality Blood specimen 01/28/2014 7:05 PM 014 7:31 (specimen) EDT PM EDT Comment: R AC Resulting Agency Comment Spec In Lab Janene Garcia MD MICROBIOLOGY - BLOOD ORDERAB LES Performing Organization Address City/State/[place] [address] CERNER MILLENNIUM CK (01/28/2014 7:05 PM EDT) athologist Signature CK, Total 29 0 - 160 CERNER unit/L MILLENNIUM Specimen Anatomical Collection Method Collection Time Receive d Time (Source) Location / / Volume Laterality Blood specimen 01/28/2014 7:05 PM 014 7:20 (specimen) EDT PM EDT Resulting Agency Comment Spec In Lab Janene Garcia MD CHEMISTRY ORDERABLES Performing Organization Address City/[facility]/ZIP Code Phon e Number [address] CERNER MILLENNIUM (ABNORMAL) Hepatic Function Panel (01/28/2014 7:05 PM EDT) athologist Signature Total Protein 7.7 6.4 - 8.3 CERNER gm/dL MILLENNIUM Albumin 4.4 3.2 - 5.2 CERNER gm/dL MILLENNIUM AST 16 0 - 30 CERNER unit/L MILLENNIUM ALT 21 0 - 30 CERNER unit/L MILLENNIUM Alk Phos 124 (H) 40 - 104 CERNER unit/L MILLENNIUM Total 0.3 0.2 - 1.3 CERNER Bilirubin mg/dL MILLENNIUM Bili, Direct 0.1 0.0 - 0.3 CERNER mg/dL MILLENNIUM Specimen Anatomical Collection Method Collection Time Receive d Time (Source) Location / / Volume Laterality Blood specimen 01/28/2014 7:05 PM 014 7:20 (specimen) EDT PM EDT Resulting Agency Comment Spec In Lab Janene Garcia MD CHEMISTRY ORDERABLES Performing Organization Address City/[facility]/[place] [address] CERNER MILLENNIUM Glucose, random (01/28/2014 7:05 PM EDT) athologist Signature Glucose Lvl 125 60 - 199 CERNER mg/dL MILLENNIUM Comment: Diabetes: >=200 mg/dL plus symp toms Specimen Anatomical Collection Method Collection Time Receive d Time (Source) Location / / Volume Laterality Blood specimen 01/28/2014 7:05 PM 014 7:20 (specimen) EDT PM EDT Resulting Agency Comment Spec In Lab Janene Garcia MD CHEMISTRY ORDERABLES Performing Organization Address City/[facility]/[place] [address] CERNER MILLENNIUM Creatinine (01/28/2014 7:05 PM EDT) athologist Signature Creatinine 0.87 0.70 - 1.20 CERNER mg/dL MILLENNIUM Comment: Please note that the pediatric reference intervals supplied above were not validated at [facility]. Results from pediatri c patients should be interpreted in conjunction to the patient's age, height and muscle mass. Estimated GFR >60 >=60 CERNER SADIQENNIU M Comment: This estimated GFR (eGFR) value [...] the following links into your internet browser. http://www.nkdep.nih.gov/lab-evaluation. shtml http://www.kidney.org/professionals/ Specimen Anatomical Collection Method Collection Time Receive d Time (Source) Location / / Volume Laterality Blood specimen 01/28/2014 7:05 PM 014 7:20 (specimen) EDT PM EDT Resulting Agency Comment Spec In Lab Janene Garcia MD CHEMISTRY ORDERABLES Performing Organization Address City/[facility]/ZIP Code Phon e Number [address] CERNER MILLENNIUM BUN (01/28/2014 7:05 PM EDT) athologist Signature BUN 17 8 - 18 CERNER mg/dL MILLENNIUM Specimen Anatomical Collection Method Collection Time Receive d Time (Source) Location / / Volume Laterality Blood specimen 01/28/2014 7:05 PM 014 7:20 (specimen) EDT PM EDT Resulting Agency Comment Spec In Lab Janene Garcia MD CHEMISTRY ORDERABLES Performing Organization Address City/[facility]/[place] [address] CERNER MILLENNIUM Electrolytes panel (01/28/2014 7:05 PM EDT) P athologist Signature Sodium 137 135 - 145 CERNER mmol/L MILLENNIUM Potassium 4.0 3.5 - 5.0 CERNER mmol/L MILLENNIUM Comment: [...] Location / / Volume Laterality Blood specimen 01/28/2014 7:05 PM 014 7:20 (specimen) EDT PM EDT Resulting Agency Comment Spec In Lab Janene Garcia MD CHEMISTRY ORDERABLES Performing Organization Address [facility] [place] [address] CERNER MILLENNIUM (ABNORMAL) Lactate, whole blood, send to lab (01/28/2014 6:54 PM EDT) P athologist Signature Lactate WB 4.0 0.5 - 2.2 CERNER (Critical) mmol/L MILLENNIUM Comment: Result rechecked. Called by: Becca SOLORIO ba ck by: Star Maguire, Date/Time:01/28/14 19:54. Specimen Anatomical Collection Method Collection Time Receive d Time (Source) Location / / Volume Laterality Blood specimen 01/28/2014 6:54 PM 014 7:30 (specimen) EDT PM EDT Resulting Agency Comment Spec In Lab Janene Garcia MD CHEMISTRY ORDERABLES Performing Organization Address City/State/ZIP Code Phon e Number [place] [id number] [facility] documented in this encounter Visit Diagnoses Diagnosis Abdominal pain, unspecified site Pneumatosis coli Other specified disorder of intestines documented in this encounter Administered Medications Inactive Administered Medications - up to 3 most recent administrations Medication Order MAR Action Action Date Dose Rate Site acetaminophen (OFIRMEV) Given 01/30/2014 9:30 AM 1,000 mg 400 mL/hr injection 1,000 mg EDT 1,000 mg, Intravenous, at 400 mL/hr, EVERY 6 HOURS, 4 doses, First dose (after last reorder) on Sat01/29/14 at 1400, Last dose on Sat01/30/14 at 1000, Maximum dose of acetaminophen is 4000 mg from all sources in 24 hours., Routine, Is the indication for perioperative pain? Yes, Are alternative routes (po or pr) not appropriate in this patient? Yes Given 01/30/2014 3:53 AM EDT 1,000 mg 400 mL/hr Given 01/29/2014 8:17 PM EDT 1,000 mg 400 mL/hr acetaminophen (TYLENOL) tablet 1,000 mg Given 02/03/2014 12:44 PM EDT 1,000 mg 1,000 mg, Oral, 4 TIMES DAILY, First dose on Sat02/01/14 at 1715, Until Discontinued, Maximum dose of acetaminophen is 4000 mg from all sources in 24 hours., Routine Given 02/03/2014 8:32 AM EDT 1,000 mg Given 02/02/2014 9:19 PM EDT 1,000 mg dextrose 5% and sodium chloride New Bag 02/01/2014 9:57 PM EDT 50 mL/hr 50 mL/hr 0.45% with potassium chloride 20 mEq infusion 50 mL/hr, Intravenous, CONTINUOUS, Starting on Sat01/30/14 at 0845, Until Sat02/02/14 at 1356 New Bag 02/01/2014 1:07 AM EDT 50 mL/hr 50 mL/hr New Bag 01/31/2014 4:26 AM EDT 50 mL/hr 50 mL/hr esomeprazole (NEXIUM) capsule 40 mg Given 02/03/2014 8:32 AM EDT 40 mg 40 mg, Oral, DAILY, First dose on Sat01/29/14 at 1200, Until Discontinued, Routine Given 02/02/2014 8:22 AM EDT 40 mg Given 01/31/2014 9:11 AM EDT 40 mg esomeprazole (NEXIUM) injection 40 mg Given 02/01/2014 8:54 AM EDT 40 mg 40 mg, Intravenous, DAILY, First dose on Sat01/29/14 at 1200, Until Discontinued Given 01/30/2014 9:10 AM EDT 40 mg Given 01/29/2014 12:53 PM EDT 40 mg fentaNYL 50mcg/mL injection Given 01/29/2014 2:35 AM EDT 50 mcg 25-50 mcg, Intravenous, EVERY 5 MIN PRN, Starting on Sat01/29/14 at 0118, Until Sat01/29/14 at 0251, Pain, for breakthrough pain, Hold for respiratory rate less than 10 per minute. Maximum dose: 250 mcg over one hour., PACU Recovery, Routine Given 01/29/2014 2:24 AM EDT 50 mcg heparin (porcine) subcutaneous injection Given 014 6:30 AM EDT 5,000 Units 5,000 Units 5,000 Units, Subcutaneous, EVERY 8 HOURS SCHEDULED, First dose on Sat01/29/14 at 0600, Until Discontinued, Routine Given 02/02/2014 9:19 PM EDT 5,000 Units Given 02/02/2014 1:17 PM EDT 5,000 Units HYDROmorphone (DILAUDID) 1 mg/mL [employer] 30 Rate/Dose Verify 014 1:45 AM EDT mL Intravenous, [employer] ONLY, Starting on Sat01/29/14 at 0145, Until Sat01/30/14 at 1219, Recovery (Recovery-Hospital Unit) New Syringe/Cartridge 01/29/2014 1:30 AM EDT HYDROmorphone (DILAUDID) 1 New Syringe/Cartridge 01/31/2014 11:02 PM 30 mg mg/mL [employer] 30 mL EDT Intravenous, [employer] ONLY, Starting on Sat01/30/14 at 1245, Until Tu02/02/14 at 1356, Recovery (Recovery-Hospital Unit) New Syringe/Cartridge 01/30/2014 3:00 PM EDT 30 mg Rate/Dose Change 01/30/2014 12:45 PM EDT 30 mg HYDROmorphone (DILAUDID) 30 mg/30 mL inf usion 1 dose, Starting on Sat01/29/14 at 0124, Until Sat01/29/14 at 0130, EMIGDIO CINTRON: raz bautista HYDROmorphone (DILAUDID) injection 0.2-0 .4 mg Given 01/29/2014 2:08 AM EDT 0.4 mg 0.2-0.4 mg, Intravenous, EVERY 5 MIN PRN, Starting on Sat01/29/14 at 0118, Until Sat01/29/14 at 0251, Pain, For moderate pain give: 0.2 mg every 5 minute prn For severe pain give: 0.4 mg every 5 minutes prn Maximum dose: 4 mg per hour Hold for respiratory rate less than 10 per minute., PACU Recovery, Routine Given 01/29/2014 2:03 AM EDT 0.4 mg Given 01/29/2014 1:58 AM EDT 0.4 mg HYDROmorphone (DILAUDID) injection 0.5 m g Given 01/28/2014 7:10 PM EDT 0.5 mg 0.5 mg, Intravenous, ONCE, 1 dose, On Sat01/28/14 at 1915, Routine HYDROmorphone (DILAUDID) injection 0.5 m g Given 01/28/2014 7:50 PM EDT 0.5 mg 0.5 mg, Intravenous, ONCE, 1 dose, On Sat01/28/14 at 2015, STAT HYDROmorphone (DILAUDID) injection 0.5 m g Given 01/28/2014 8:33 PM EDT 0.5 mg 0.5 mg, Intravenous, ONCE, 1 dose, On Sat01/28/14 at 2100, Routine HYDROmorphone (DILAUDID) injection 0.5 m g Given 01/28/2014 10:10 PM EDT 0.5 mg 0.5 mg, Intravenous, EVERY 1 HOUR PRN, Starting on Sat01/28/14 at 2141, Until Sat01/29/14 at 0438, Pain, severe pain, Routine lactated ringers infusion 1,000 New Bag 01/29/2014 9:15 PM EDT 1,000 mLs 100 mL/hr mL 1,000 mL, at 100 mL/hr, Intravenous, CONTINUOUS, Starting on Sat01/29/14 at 0115, Until 01/30/14 at 0817, Recovery (Recovery-Hospital Unit) New Bag 01/29/2014 1:15 AM EDT 1,000 mLs 100 mL/hr lactated ringers infusion New Bag 01/29/2014 6:52 AM EDT 125 mL/hr 125 mL/hr 125 mL/hr, Intravenous, CONTINUOUS, Starting on Sat01/29/14 at 0500, Until Sat01/29/14 at 0727 methylPREDNISolone (MEDROL) tablet 12 mg Given 02/03/2014 8:32 AM EDT 12 mg 12 mg, Oral, DAILY, First dose on 01/30/14 at 1345, Until Discontinued, Routine Given 02/02/2014 8:22 AM EDT 12 mg Given 02/01/2014 2:55 PM EDT 12 mg methylPREDNISolone sodium succinate (PF) New Bag 01/30/2014 6:06 A M EDT 50 mg (SOLU-MEDROL) 40 mg/mL injection 50 mg 50 mg, Intravenous, EVERY 8 HOURS, First dose on Sat01/29/14 at 0500, Until Discontinued New Bag 01/29/2014 9:17 PM EDT 50 mg New Bag 01/29/2014 1:00 PM EDT 50 mg ondansetron (ZOFRAN) injection 4 mg Given 01/28/2014 7:10 PM EDT 4 mg 4 mg, Intravenous, ONCE, 1 dose, On Aditi 01/28/14 at 1915, STAT ondansetron (ZOFRAN) injection 4 mg Given 01/29/2014 1:25 AM EDT 4 mg 4 mg, Intravenous, EVERY 30 MIN PRN, Starting on Sat01/29/14 at 0118, Until Sat01/29/14 at 0251, Nausea, May repeat 4 mg once in 30 minutes. Consider prochlorperazine if ineffective., PACU Recovery ondansetron (ZOFRAN) injection 4 mg Given 02/01/2014 6:59 AM EDT 4 mg 4 mg, Intravenous, EVERY 8 HOURS PRN, Starting on Sat01/29/14 at 0438, Until Sat02/03/14 at 1531, Nausea Given 01/29/2014 8:17 PM EDT 4 mg Given 01/29/2014 10:12 AM EDT 4 mg oxyCODONE (ROXICODONE) immediate release Given 02/02/2014 10:35 PM EDT 10 mg tablet 5-10 mg 5-10 mg, Oral, EVERY 4 HOURS PRN, Starting on Sat02/02/14 at 1357, Until Sat02/03/14 at 0207, Pain, Routine Given 02/02/2014 7:04 PM EDT 10 mg Given 02/02/2014 3:07 PM EDT 10 mg oxyCODONE (ROXICODONE) immediate release Given 02/03/2014 12:44 PM EDT 15 mg tablet 5-15 mg 5-15 mg, Oral, EVERY 3 HOURS PRN, Starting on Sat02/03/14 at 0215, Until Sat02/03/14 at 1531, Pain, Routine Given 02/03/2014 10:05 AM EDT 15 mg Given 02/03/2014 6:31 AM EDT 15 mg piperacillin-tazobactam (ZOSYN) New Bag 01/29/2014 9:16 PM 3.375 g 12.5 mL/hr 3.375 g in dextrose 5% 50 mL EDT 3.375 g, Intravenous, EVERY 8 HOURS, 3 doses, First dose on Sat01/29/14 at 0600, Last dose on Sat01/29/14 at 2200, Administer over 4 Hours, Indication for (Active or Suspected): GI/Intra-abdominal New Bag 01/29/2014 3:42 PM EDT 3.375 g 12.5 mL/hr New Bag 01/29/2014 6:51 AM EDT 3.375 g 12.5 mL/hr piperacillin-tazobactam (ZOSYN) IV New Bag 01/28/2014 8:45 PM EDT 4.5 g 200 mL/hr (Alternative Adult) infusion 4.5 g, Intravenous, ONCE, 1 dose, On Aditi 01/28/14 at 2100, Administer over 30 Minutes, Indication for (Active or Suspected): GI/Intra-abdominal potassium chloride (K-DUR/KLOR-CON) extended Given 10:05 AM EDT 40 mEq release tablet 40 mEq 40 mEq, Oral, EVERY 4 HOURS, 2 doses, First dose on Sat02/03/14 at 0600, Last dose on Sat02/03/14 at 1000, 20 mEq tablet may be dissolved in water for administration, Routine Given 02/03/2014 6:30 AM EDT 40 mEq prochlorperazine (COMPAZINE) injection 1 0 mg Given 01/28/2014 9:17 PM EDT 10 mg 10 mg, Intravenous, EVERY 6 HOURS PRN, Starting on Aditi 01/28/14 at 2106, Until Sat02/03/14 at 1531, Nausea, Nausea/Vomiting, If multiple antiemetics are ordered, use ondansetron first. If ondansetron ineffective use prochlorperazine. , Routine prochlorperazine (COMPAZINE) injection 5 mg Given 02/01/2014 6:37 AM EDT 5 mg 5 mg, Intravenous, EVERY 30 MIN PRN, 2 doses, Starting on Sat01/29/14 at 0125, Until Sat02/01/14 at 0637, Nausea, May repeat in 30 minutes if no relief from previous dose. HOLD if patient is sedated. Maximum dose is 40 mg in 24 hours., Recovery (Recovery-Hospital Unit), Routine Given 01/29/2014 1:56 AM EDT 5 mg promethazine (PHENERGAN) injection 6.25 mg Given 02/01/2014 9:10 AM EDT 6.25 mg 6.25 mg, Intravenous, EVERY 6 HOURS PRN, Starting on Sat02/01/14 at 0853, Until Sat02/03/14 at 1531, Nausea, Avoid extravasation, Routine sodium chloride 0.9 % flush 5 mL Given 02/03/2014 8:33 AM EDT 5 mLs 5 mL, Intravenous, 2 TIMES DAILY, First dose on Sat01/29/14 at 0900, Until Discontinued, Recovery (Recovery-Hospital Unit), Routine Given 02/02/2014 9:19 PM EDT 5 mLs Given 02/01/2014 9:13 PM EDT 5 mLs sodium chloride 0.9% 2,000 mL IV bolus Given 01/28/2014 8:35 PM EDT Intravenous, ONCE, 1 dose, On Aditi 01/28/14 at 2015 Given 01/28/2014 8:00 PM EDT vancomycin 1 g in dextrose 5% 200 mL Given 01/28/2014 9:25 PM EDT 1,000 mg 1,000 mg (1 g), Intravenous, ONCE, On Aditi 01/28/14 at 2100, 1 dose, Indication for (Active or Suspected): GI/Intra-abdominal vancomycin 1.25 g sodium in New Bag 01/30/2014 1:33 AM EDT 1,250 m g 125 mL/hr chloride 0.9% 250 mL 1,250 mg (1.25 g), Intravenous, EVERY 12 HOURS, 2 doses, First dose (after last reorder) on Sat01/29/14 at 1100, Last dose on Sat01/29/14 at 2300, Administer over 120 Minutes, This medication may have an associated drug lab level. Please check for lab orders, Indication for (Active or Suspected): GI/Intra-abdominal New Bag 01/29/2014 12:00 PM EDT 1,250 mg 125 mL/hr documented in this encounter Active and Recently Administered Medications Times are shown in EDT. Scheduled Medication Order 02/01/2014 02/02/2014 02/03/2014 acetaminophen (TYLENOL) tablet 1,000 mg (CANCELED) 171 7 (Given - Provider: Luci Al RN)2113 (Given - Provider: Jose Joyner RN) 0822 (Given - Provider: Luci Al RN)1317 (Given - Provider: Luci Al RN)1725 (Given - Provider: Luci Al RN)2119 (Given - Provider: Denisa Centeno RN) 0832 (Given - Provider: Luci caldwell RN)1244 (Given - Provider: Luci Al RN) 1,000 mg, Oral, 4 TIMES DAILY, First dos e on Sat02/01/14 at 1715, Until Discontinued, Maximum dose of acetaminophen is 4000 mg from all sources in 24 hours., Routine esomeprazole (NEXIUM) capsule 40 mg (CANCELED) 0854 (S ee Alternative - Provider: Gabe Sanchez RN) 0822 (Given - Provider: Luci Al RN) 0832 (Given - Provider: Luci Al RN) 40 mg, Oral, DAILY, First dose on Sat at 1200, Until Discontinued, Routine esomeprazole (NEXIUM) injection 40 mg (CANCELED) 0854 (Given - Provider: Gabe Sanchez RN) 0822 (See Alternative - Provider: Luci Al RN) 0832 (See Alternative - Provider: Luci Al RN) 40 mg, Intravenous, DAILY, First dose on Sat01/29/14 at 1200, Until Discontinued, Routine heparin (porcine) subcutaneous injection 5,000 Units ( CANCELED) 0600 (Not Given - Provider: Gabe Sanchez RN - Reason: Patient/family refused)1453 (Given - Provider: Gabe Sanchez RN)2112 (Given - Provider: Jose Joyner RN) 0628 (Given - Provider: Jose Joyner RN)1317 (Given - Provider: Luci Al RN)2118 (Given - Provider: Denisa Centeno RN) 0630 (Given - Provider: Denisa Centeno RN) 5,000 Units, Subcutaneous, EVERY 8 HOURS SCHEDULED, First dose on Sat01/29/14 at 0600, Until Discontinued, Routine methylPREDNISolone (MEDROL) tablet 12 mg (CANCELED) 14 55 (Given - Provider: Gabe Sanchez RN) 0822 (Given - Provider: Luci Al RN) 0832 (Given - Provider: Luci Al RN) 12 mg, Oral, DAILY, First dose on Sat at 1345, Until Discontinued, Routine potassium chloride (K-DUR/KLOR-CON) extended release tablet 40 mEq (COMPLETED) 0630 (Given - Provider: Denisa de luna RN)1005 (Given - Provider: Luci Al RN) 40 mEq, Oral, EVERY 4 HOURS, 2 doses, Fi rst dose on Sat02/03/14 at 0600, Last dose on Sat02/03/14 at 1000, 20 mEq tablet may be dissolved in water for administration, Routine sodium chloride 0.9 % flush 5 mL (CANCELED) 0858 (Give n - Provider: Gabe Sanchez RN)2112 (Given - Provider: Jose Joyner, MICHELLE) 0900 (Not Given - Provider: Luci Al RN - Reason: See comment - Comment: IV infusing)2118 (Given - Provider: Denisa Centeno RN) 0833 (Given - Provider: Luci Al RN) 5 mL, Intravenous, 2 TIMES DAILY, First dose on Sat01/29/14 at 0900, Until Discontinued, Recovery (Recovery-Hospital Unit), Routine Continuous Medication Order 02/01/2014 02/02/2014 02/03/2014 dextrose 5% and sodium chloride 0.45% wi th potassium chloride 20 mEq infusion (CANCELED) 0107 (New Bag - Provider: Jose nolan, MICHELLE)2157 (New Bag - Provider: Jose Joyner, MICHELLE) 1729 (Stopped - Provider: Luci Al, MICHELLE) 50 mL/hr, at 50 mL/hr, Intravenous, CONT INUOUS, Starting 01/30/14 at 0845, Until Sat02/02/14 at 1356 PRN Medication Order 02/01/2014 02/02/2014 02/03/2014 ondansetron (ZOFRAN) injection 4 mg (CANCELED) 0659 (G iven - Provider: Jose Joyner RN) 4 mg, Intravenous, EVERY 8 HOURS PRN, St arting Sat01/29/14 at 0438, Until Sat02/03/14 at 1531, Nausea, Routine oxyCODONE (ROXICODONE) immediate release tablet 5-10 mg (CAN CELED) 1507 (Given - Provider: Luci Al RN)1904 (Given - Provider: Luci Al RN)2235 (Given - Provider: Denisa Centeno, MICHELLE) 5-10 mg, Oral, EVERY 4 HOURS PRN, Starti ng Sat02/02/14 at 1357, Until Sat02/03/14 at 0207, Pain, Routine oxyCODONE (ROXICODONE) immediate release tablet 5-15 mg 0217 (Given - Provider: Denisa Centeno, MICHELLE)0631 (Given - Provider: Denisa Centeno, MICHELLE)1005 (Given - Provider: Luci Al, MICHELLE)1244 (Given - Provider: Luci Al RN) 5-15 mg, Oral, EVERY 3 HOURS PRN, Starti ng Sat02/03/14 at 0215, Until Sat02/03/14 at 1531, Pain, Routine prochlorperazine (COMPAZINE) injection 5 mg (CANCELED) 0637 (Given - Provider: Jose Joyner, RN) 5 mg, Intravenous, EVERY 30 MIN PRN, 2 d oses, Starting Sat01/29/14 at 0125, Until Sat02/01/14 at 0637, Nausea, May repeat in 30 minutes if no relief from previous dose. HOLD if patient is sedated. Maxim um dose is 40 mg in 24 hours., Recovery (Recovery-Hospital Unit) , Routine promethazine (PHENERGAN) injection 6.25 mg (CANCELED) 0910 (Given - Provider: Gabe Sanchez, MICHELLE) 6.25 mg, Intravenous, EVERY 6 HOURS PRN, Starting Sat02/01/14 at 0853, Until Sat02/03/14 at 1531, Nausea, Avoid extravasation, Routine documented in this encounter Care Teams Sloop Captain Relationship Specialty Start Date End Date Fadia Bautista MD PCP - General 12/04/13 10/30/[id number] [place] [address] documented as of this encounter
--- OUTSIDE RECORDS SUMMARY | 2022-08-04 16:26 | XMS_ITS | Encounter Summary ---
:1975 Author Organization [place] [address] Care Team Providers Name Role Phone Adrián Reynolds MD Primary Care Provider [phone] Encounter Details Date Type Department Care Team Description 03/18/2014 Follow-Up Rheumatology at [facility] Katy Valerio [facility] Ag Reeder DO arthritis(714.0) [place] [address] [facility] (Primary Dx) [phone] RHEUMATOLOGY [place], [place] [address] Social History Tobacco Use Types Packs/Day Years Used Date Smoking Tobacco: Former Cigarettes Comments: quit 2 years ago Alcohol Use Standard Drinks/Week Comments No 0 (1 standard drink = 0.6 oz pure alcoho l) Sex Assigned at Date Recorded Not on file documented as of this encounter Progress Notes Rebeca Valerio DO - 03/18/2014 10:01 AM EDT Outpatient Rheumatology Followup HPI: 37 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 The patient was diagnosed with seropositive RA in 2006 and was seen here once by Dr. Bello. Was following with a entry level web developer at [facility]. Her RA control before was good on HCQ, MTX,and enbrel. She had very few flares on this combo. Prior xrays per patient showed no erosions. Unfortunately also got on this combination (her OCP was recalled b/c it was packaged improperly) and her prior entry level web developer suggested aborting the . The patient opted not to do that and has been following her with DISTRICT COMMERCIAL SUPERINTENDENT and her is advancing normally. She stopped [...] in January 2012. Interim History: Last seen 1 month ago. Has been trying to wean medrol down. Got down to 8 mg and had a terrible flare. Is back up to 12 mg daily. Her hands are stiff and swollen. She describes full body flare. can't move or do anything. Has been taking 12 mg of medrol since Saturday which seems to help. She is taking 10 mg of MTX and weekly humira - 4 injections thus far. She is tolerating her current dose of MTX, although it is low. PMH: seropositive ra dX in 2006, PTSD, fibromyalgia, 3 c-sections, cholecystectomy, kidney stones, migraines, pneumatosis coli s/p right hemicolectomy. 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 Stoma is intact and draining Mouth: MMM, no oral ulcers Eyes: normal sclera Joints: she cannot straighten out her hands completely. Her MCPs are swollen and tender.she can not grasp. B/l wrists are swollen and tender. Assessment and Plan: 1. RF+, CCP+ RA 2. PTSD, depression and anxiety 3. 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 Increase MTX to 20 mg weekly, split the dose on the day she takes it and continue humira 40 mg weekly. Increase medrol to 16 mg daily for 2 weeks, then try to decrease to 12 mg. If humira does not work, would start Rituxan. I am reluctant to try actemra or xeljanz due to her bowel issues. RTC in 2 months for 60 minute appointment. documented in this encounter Miscellaneous Notes Addendum Note - Loreto Moreno - 03/18/2014 10:44 AM EDT Addended by: LORETO MORENO on: 03/18/2014 10:44 AM Modules accepted: Orders documented in this encounter Plan of Treatment Not on filedocumented as of this encounter Procedures Procedure Name Priority Date/Time Associated Comments Diagnosis HEMOGRAM Routine 03/18/2014 10:25 Rheumatoid Results for this AM EDT arthritis(714.0) procedure a re in the results section. DIFFERENTIAL, Routine 03/18/2014 10:25 Rheumatoid Results fo r this AUTOMATED AM EDT arthritis(714.0) procedure a re in the results section. CBC (WITH DIFF) Routine 03/18/2014 10:25 Rheumatoid AM EDT arthritis(714.0) CRP, CARDIAC RISK (HS Routine 03/18/2014 10:25 Rheumatoid Re sults for this CRP) AM EDT arthritis(714.0) procedure a re in the results section. COMPREHENSIVE Routine 03/18/2014 10:25 Rheumatoid Results fo r this METABOLIC PANEL AM EDT arthritis(714.0) procedur e are in (NON-FASTING) the results section. documented in this encounter Results (ABNORMAL) Differential, Automated (03/18/2014 10:25 AM EDT) [facility] gist Method Time Signature Neutrophils % 67.8 34.0 - CERNER 71.0 % MILLENNIUM Neutr Abs (ANC) 9.93 (H) 1.50 - CERNER 6.30 MILLENNIUM x10(3)/mc L Lymphocytes % 24.7 19.0 - CERNER 53.0 % MILLENNIUM Lymphocytes Abs 3.6 1.0 - 3.6 CERNER x10(3)/mc MILLENNIUM L Monocytes % 5.4 4.0 - CERNER 13.0 % MILLENNIUM Monocyte Abs 0.8 0.2 - 1.0 CERNER x10(3)/mc MILLENNIUM L Eosinophils % 0.9 0.0 - 7.0 CERNER % MILLENNIUM Eosinophils Abs 0.1 0.0 - 0.5 CERNER x10(3)/mc MILLENNIUM L Basophils % 0.2 0.0 - 2.0 CERNER % MILLENNIUM Basophils Abs 0.0 0.0 - 0.2 CERNER x10(3)/mc MILLENNIUM L Immature Gran % 1.00 (H) 0.00 - CERNER 0.66 % MILLENNIUM [...] Location / / Volume Laterality Blood specimen 03/18/2014 10:25 4 (specimen) AM EDT 10:29 AM EDT Resulting Agency Comment Spec In Lab Rebeca Valerio DO HEMATOLOGY ORDERABLES Performing Organization Address City/State/ZIP Code Phon e Number [place] [phone] CERNER MILLENNIUM (ABNORMAL) Hemogram (03/18/2014 10:25 AM EDT) P athologist Signature WBC 14.6 (H) 4.0 - 10.0 CERNER x10(3)/mcL MILLENNIUM RBC 4.56 3.93 - CERNER 5.22 MILLENNIUM x10(6)/mcL Hemoglobin 12.9 11.2 - CERNER 15.7 gm/dL MILLENNIUM Hematocrit 39.1 34.0 - CERNER 45.0 % MILLENNIUM MCV 85.7 79.0 - CERNER 94.0 fL MILLENNIUM MCH 28.3 26.6 - CERNER 32.2 pg MILLENNIUM MCHC 33.0 32.0 - CERNER 36.5 gm/dL MILLENNIUM Platelets 231 145 - 370 CERNER x10(3)/mcL MILLENNIUM RDWSD 49.3 (H) 35.0 - CERNER 46.0 fL MILLENNIUM RDWCV 15.9 (H) 10.9 - CERNER 14.4 % MILLENNIUM MPV 9.4 9.0 - 12.0 CERNER fL MILLENNIUM Specimen Anatomical Collection Method Collection Time Receive d Time (Source) Location / / Volume Laterality Blood specimen 03/18/2014 10: 4 (specimen) AM EDT 10:29 AM EDT Resulting Agency Comment Spec In Lab Rebeca Valerio DO HEMATOLOGY ORDERABLES Performing Organization Address City/State/ZIP Code Phon e Number [place] [phone] CERNER MILLENNIUM High Sensitivity CRP (03/18/2014 10:25 AM EDT) athologist Signature CRP High Sens 43.7 mg/L CERNER MILLENNIUM Comment: result rechecked, blr Interpretations: 1) For accurate cardiac risk assessment, [...] Cardiovascular Disease. ??Circulatio n 2003; 107:499-511 2. Nedra PM. ??Clinical applications of C-reactive protein for cardiovascular disease detection and prevention. ??Circ ulation 2003; 107:363-369 Specimen Anatomical Collection Method Collection Time Receive d Time (Source) Location / / Volume Laterality Blood specimen 03/18/2014 10:25 4 (specimen) AM EDT 10:29 AM EDT Resulting Agency Comment Spec In Lab Rebeca Valerio DO CHEMISTRY ORDERABLES Performing Organization Address City/State/ZIP Code Michael e Number JESUS MANUEL [place] [phone] CERNER MILLENNIUM Comprehensive metabolic panel (non-fasting) (03/18/2014 10:25 AM EDT) athologist Signature Glucose Lvl 89 60 - 199 CERNER mg/dL MILLENNIUM Comment: Diabetes: >=200 mg/dL plus symp toms BUN 15 8 - 18 mg/dL CERNER MILLENNIUM Creatinine 0.77 0.70 - 1.20 mg/dL CERNER MILL ENNIUM Comment: Please note that the pediatric reference intervals supplied above were not validated at [facility]. Results from pediatri c patients should be [...] - 107 mmol/L CERNER MILLENN IUM CO2 28 22 - 31 mmol/L CERNER MILLENNI UM Anion Gap 9 5 - 15 mmol/L CERNER MILLENNIU M Calcium 9.9 8.5 - 10.5 mg/dL CERNER ARIS NIUM Total Protein 7.3 6.4 - 8.3 gm/dL CERNER MIL LENNIUM Albumin 3.9 3.2 - 5.2 gm/dL CERNER MILLENN IUM AST 13 0 - 30 unit/L CERNER MILLENNIU M ALT 15 0 - 30 unit/L CERNER MILLENNIU M Alk Phos 91 40 - 104 unit/L CERNER MILLENN IUM Total Bilirubin 0.3 0.2 - 1.3 mg/dL CERNER M ILLENNIUM Bili, Direct 0.1 0.0 - 0.3 mg/dL CERNER MILL ENNIUM Estimated GFR >60 >=60 MICHELLE Reeder Comment: [...] the following links into your internet browser. [email or web address] Specimen Anatomical Collection Method Collection Time Receive d Time (Source) Location / / Volume Laterality Blood specimen 03/18/2014 10:25 4 (specimen) AM EDT 10:29 AM EDT Resulting Agency Comment Spec In Lab Rebeca Valerio DO CHEMISTRY ORDERABLES Performing Organization Address City/State/[place] [address] MICHELLE ROJASIUM documented in this encounter Visit Diagnoses Diagnosis Rheumatoid arthritis(714.0) - Primary Rheumatoid arthritis documented in this encounter Care Teams Purchasing Associate Relationship Specialty Start Date End Date Adrián Reynolds MD PCP - General 12/04/13 10/30/[id number] [place] [address] documented as of this encounter
--- OUTSIDE RECORDS SUMMARY | 2022-08-04 16:26 | XMS_ITS | Encounter Summary ---
:1975 Author Organization [facility] [place] [address] Care Team Providers Name Role Phone Adrián Reynolds MD Primary Care Provider [phone] Reason for Visit Reason Comments Follow-up ostomy check Encounter Details Date Type Department Care Team Description 03/11/2014 Office Visit General Surgery at [facility] DR SCOTT kirby present [facility] (Primary Dx) [place] [address] Social History Tobacco Use Types Packs/Day Years Used Date Smoking Tobacco: Former Cigarettes Comments: quit 2 years ago Alcohol Use Standard Drinks/Week Comments No 0 (1 standard drink = 0.6 oz pure alcoho l) Sex Assigned at Date Recorded Not on file documented as of this encounter Progress Notes Ana Kingsley RN - 03/11/2014 6:02 PM EDT Pt RTC for f/u assessment of her peristomal skin and pouching problems. SHe is s/p exp lap, right colectomy with end ileostomy with Dr. Alexander on 01/28/14. She is doing much better from when I saw her last. The convex pouches are working better, though she still changes about every 2 days. The [place] 1 convex lasted the longest at 4 days, but she had difficulty with the velcro closure on this pouch due to her RA, which is flaring. Her peristomal skin is much improved. She has a very thin rim of irritation, which is slightly raised, likely from chronic exposure to stool. Her stoma is slightly smaller than 1, but I Think 7/8 would be too small. I will order the Coloplast 1 convex #[id number], no sting skin prep, Fany Slims ([id number]) and Osto EZ vent from [facility] for her. SHe said her effluent continues to be watery and I again suggested Metamucil BID to help thicken. She is trying some other dietary measures to thicken as well. She is voiding a lot she said and it is light yellow. I explained that I think she maybe could increase her wear time if her effluent is thicker and less likely to cause leakage and irritation. I encouraged her to call if continued problems or concerns. We did not schedule a f/u today, but she will be in touch. documented in this encounter Plan of Treatment Not on filedocumented as of this encounter Visit Diagnoses Diagnosis Ileostomy present - Primary Ileostomy status documented in this encounter Care Teams Councilperson Relationship Specialty Start Date End Date Adrián Reynolds MD PCP - General 12/04/13 10/30/[address] [place] [address] documented as of this encounter
--- OUTSIDE RECORDS SUMMARY | 2022-08-04 16:26 | XMS_ITS | Encounter Summary ---
:1975 Author Organization [facility] [place] [address] Care Team Providers Name Role Phone Adrián Reynolds MD Primary Care Provider [phone] Encounter Details Date Type Department Care Team Description 02/05/2014 Orders Only General Surgery at [facility] Atte ntion to ileostomy [facility] (Primary Dx) [place] [address] Social History Tobacco Use Types Packs/Day Years Used Date Smoking Tobacco: Former Cigarettes Comments: quit 2 years ago Alcohol Use Standard Drinks/Week Comments No 0 (1 standard drink = 0.6 oz pure alcoho l) Sex Assigned at Date Recorded Not on file documented as of this encounter Plan of Treatment Not on filedocumented as of this encounter Visit Diagnoses Diagnosis Attention to ileostomy - Primary documented in this encounter Care Teams Clinical Appeals Auditor Relationship Specialty Start Date End Date Adrián Reynolds MD PCP - General 12/04/13 10/30/15 [address] [place], [place] [id number] documented as of this encounter
--- OUTSIDE RECORDS SUMMARY | 2022-08-04 16:26 | XMS_ITS | Encounter Summary ---
:1975 Author Organization [facility] [place] [address] Care Team Providers Name Role Phone Adrián Reynolds MD Primary Care Provider [phone] Encounter Details Date Type Department Care Team Description 02/15/2014 Follow-Up Rheumatology at [facility] Iman, Rheumatoid arthritis(714.0) (Primary Dx); [facility] Rebeca Reeder DO S/P [place] [address] RHEUMATOLOGY [place], [place] [address] Social History Tobacco Use Types Packs/Day Years Used Date Smoking Tobacco: Former Cigarettes Comments: quit 2 years ago Alcohol Use Standard Drinks/Week Comments No 0 (1 standard drink = 0.6 oz pure alcoho l) Sex Assigned at Date Recorded Not on file documented as of this encounter Last Filed Vital Signs Vital Sign Reading Time Taken Comments Blood Pressure 124/77 02/15/2014 10:31 AM EDT Pulse 85 02/15/2014 10:31 AM EDT Temperature 36.6 ??C (97.8 ??F) 02/15/2014 10:31 AM EDT Respiratory Rate - - Oxygen Saturation 100% 02/15/2014 10:31 AM EDT Inhaled Oxygen Concentration - - Weight 88.3 kg (194 lb 9.6 oz) 02/15/2014 10:31 AM EDT Height 154.9 cm (5' 1) 02/15/2014 10:31 AM EDT Body Mass Index 36.77 02/15/2014 10:31 AM EDT documented in this encounter Progress Notes Rebeca Valerio, - 02/15/2014 10:37 AM EDT Outpatient Rheumatology Followup HPI: 37 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 The patient was diagnosed with seropositive RA in 2006 and was seen here once by Dr. Bello. Was following with a automotive heavy mechanic at [facility]. Her RA control before was good on HCQ, MTX,and enbrel. She had very few flares on this combo. Prior xrays per patient showed no erosions. Unfortunately also got on this combination (her OCP was recalled b/c it was packaged improperly) and her prior automotive heavy mechanic suggested aborting the . The patient opted not to do that and has been following her with MATTRESS STRIPPER and her is advancing normally. She stopped [...] January 2012. Interim History: Last seen in December. Just after that we did a CT scan of her abdomen due to recurrent abdominal pain. She had pneumatosis coli and ended up having a right hemicolectomy with ileostomy on 01/29/14. Humira and MTX held and she is taking medrol. Tried alternating 12/8mg. Yesterday she bumped it up to 16 mg daily due to pain and swelling in her hands and knees. They are better today. Her appetite is good. She is still getting used to stoma care. Is out of work on FMLA and I also filled out LTD paperwork. Her FMLA runs out on March 16. PMH: seropositive ra dX in 2006, PTSD, fibromyalgia, 3 c-sections, cholecystectomy, kidney stones, migraines, pneumatosis coli s/p right hemicolectomy. 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 Stoma is intact and draining Mouth: MMM, no oral ulcers Eyes: normal sclera Joints: knees are cool with no effusions and they move well. Her 2-5 MCPs and PIPs 2-5 b/l are swollen and tender. Wrists are not swollen or tender. Assessment and Plan: 1. RF+, CCP+ RA 2. PTSD, depression and anxiety 3. 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 I spent 45 minutes with the patient and her and 30 minutes were spent in discussion and counseling regarding her RA, her surgery and her meds: Restart MTX 10 mg weekly and humira 40 mg weekly. In 1 week, try decreasing medrol to 12 mg. She will continue trying to taper down as she continues MTX and humira. It took 3-4 doses of humira in the past before she started to feel an effect. No labs needed today. Followup in 1 month documented in this encounter Plan of Treatment Not on filedocumented as of this encounter Visit Diagnoses Diagnosis Rheumatoid arthritis(714.0) - Primary Rheumatoid arthritis S/P right hemicolectomy Other postprocedural status documented in this encounter Care Teams Foam Fabricator Relationship Specialty Start Date End Date Adrián Reynolds MD PCP - General 12/04/13 10/30/[address] [place] [address] documented as of this encounter
--- OUTSIDE RECORDS SUMMARY | 2022-08-04 16:26 | XMS_ITS | Encounter Summary ---
:1975 [place] [address] Care Team Providers Name Role Phone Adrián Reynolds MD Primary Care Provider [phone] Encounter Details Date Type Department Care Team Description 02/10/2014 Clinical Support General Surgery at [facility] NURSE, [facility] [place] [address] Social History Tobacco Use Types Packs/Day [...] on filedocumented in this encounter Care Teams Distributor Sales Manager Relationship Specialty Start Date End Date Adrián Reynolds MD PCP - General 12/04/13 10/30/15 [address] [place] [address] documented as of this encounter
--- OUTSIDE RECORDS SUMMARY | 2022-08-04 16:26 | XMS_ITS | Encounter Summary ---
:1975 Author Organization [facility] [place] [address] Care Team Providers Name Role Phone Adrián Reynolds MD Primary Care Provider [phone] Reason for Visit Reason Onset Date Comments Prior Authorization 02/03/2014 HUMIRA-APPROVED Encounter Details Date Type Department Care Team Description 02/03/2014 Telephone Rheumatology at [facility] Jarvis Wallace Prior Authorization [facility] [place] [address] Social History Tobacco Use Types Packs/Day Years Used Date Smoking Tobacco: Former Cigarettes Comments: quit 2 years ago Alcohol Use Standard Drinks/Week Comments No 0 (1 standard drink = 0.6 oz pure alcoho l) Sex Assigned at Date Recorded Not on file documented as of this encounter Miscellaneous Notes Telephone Encounter - [facility] - 02/03/2014 4:40 PM EDT Medication Prior Authorization RHEUMATOLOGY DR. ALAS Medication name/dose/directions: HUMIRA 40MG INJECT SQ Q ONCE A WEEK Rationale for request: RA Health plan: [employer] ID# [id number] Authorizing leasing representative name: APPROVAL FAXED TO OFFICE Faxed to health plan on: 01/19/14 Health plan decision: Approved Quantity approved: 01/04 Authorization number: [id number] Start date: 01/19/14 End date: 01/19/15 Patient notified? no Pharmacy notified? no documented in this encounter Plan of Treatment Not on filedocumented as of this encounter Visit Diagnoses Not on filedocumented in this encounter Care Teams Bank Examiner Relationship Specialty Start Date End Date Adrián Reynolds MD PCP - General 12/04/13 10/30/[address] [place] [address] documented as of this encounter
--- OUTSIDE RECORDS SUMMARY | 2022-08-04 16:26 | XMS_ITS | Encounter Summary ---
:1975 Author Organization [facility] [place] [address] Care Team Providers Name Role Phone Adrián Reynolds MD Primary Care Provider [phone] Reason for Visit Reason Comments Follow-up Encounter Details Date Type Department Care Team Description 05/24/2014 Follow-Up General Surgery at Mele Alexander MD Ileostomy in place [facility] (Primary Dx) [facility] [address] [place] [address] [place] [address] [phone] (Wo rk) Social History Tobacco Use Types Packs/Day Years Used Date Smoking Tobacco: Former Cigarettes Smokeless Tobacco: Never Comments: Quit in 2008 Alcohol Use Standard Drinks/Week Comments No 0 (1 standard drink = 0.6 oz pure alcoho l) Sex Assigned at Date Recorded Not on file documented as of this encounter Last Filed Vital Signs Vital Sign Reading Time Taken Comments Blood Pressure 153/98 05/24/2014 9:37 AM EDT Pulse 86 05/24/2014 9:37 AM EDT Temperature - - Respiratory Rate 16 05/24/2014 9:37 AM EDT Oxygen Saturation 99% 05/24/2014 9:37 AM EDT Inhaled Oxygen Concentration - - Weight 93.9 kg (207 lb) 05/24/2014 9:37 AM EDT Height - - Body Mass Index 39.13 05/20/2014 1:00 PM EDT documented in this encounter Progress Notes Mele Alexander MD - 05/25/2014 8:47 AM EDT Ms. Zamora presents to clinic today to [...] summer and her energy has been good. Exam: Gen: smiling and pleasant, in no distress CV: regular rate and rhythm Resp: clear bilateral Abd: obese, soft, non tender, non distended. Midline incision well healed and no evidence of hernia although difficult to tell given her body habitus Ext: trace bilateral lower extremity edema A/P: 38 year old woman recovering well nearly four months after surgery. Her RA has been well controlled and she is weaning from her Medrol. We discussed the plan for surgery which would be through herprevious incision and would involve connecting her small intestine back with her colon. The risk of anastomotic leak, abdominal infection and hernia were all discussed, and I mentioned that given her obesity and immunosuppression her risk of hernia was higher. I explained that despite her you age thata pre-op colonoscopy is important to rule out any tumor or obstruction prior to surgery and this hasbeen scheduled. We will need to hold some of her medications around the time of surgery to help reduce her risk of infection and to allow for wound healing. I will discuss this with her Oncologist. Maxine Hare RN - 05/24/2014 4:05 PM EDT I reviewed the following prep for the colonoscopy with the patient. Clear liquids only the day before the colonoscopy and up until 1 hour before the time you are to arrive for the colonoscopy. No RED OR PURPLE liquids please. The morning of the colonoscopy, do 1 fleet enema [place]. Pt verbalizes her understanding of the instructions. The nurses card was given to the pt for any questions. documented in this encounter Plan of Treatment Not on filedocumented as of this encounter Visit Diagnoses Diagnosis Ileostomy in place - Primary Ileostomy status documented in this encounter Care Teams Mill Turner Relationship Specialty Start Date End Date Adrián Reynolds MD PCP - General 12/04/13 10/30/[address] [place] [address] documented as of this encounter
--- OUTSIDE RECORDS SUMMARY | 2022-08-04 16:26 | XMS_ITS | Encounter Summary ---
:1975 Author Organization [facility] [place] [address] Care Team Providers Name Role Phone Adrián Reynolds MD Primary Care Provider [phone] Reason for Visit Reason Onset Date Comments Medication Refill 04/08/2014 Encounter Details Date Type Department Care Team Description 04/08/2014 Refill Rheumatology at [place] [facility]bec[facility] [place] [address] RHEUMATOLOGY DEPT. [phone] [place], [place] [address] (Wo rk) Social History Tobacco Use Types Packs/Day Years Used Date Smoking Tobacco: Former Cigarettes Comments: quit 2 years ago Alcohol Use Standard Drinks/Week Comments No 0 (1 standard drink = 0.6 oz pure alcoho l) Sex Assigned at Date Recorded Not on file documented as of this encounter Miscellaneous Notes Telephone Encounter - Deja Ibanez RN - 04/08/2014 1:15 PM EDT Humira Rx resent to [employer]. documented in this encounter Plan of Treatment Not on filedocumented as of this encounter Visit Diagnoses Not on filedocumented in this encounter Care Teams Counselor Supervisor Relationship Specialty Start Date End Date Adrián Reynolds MD PCP - General 12/04/13 10/30/[address] [place] [address] documented as of this encounter
--- OUTSIDE RECORDS SUMMARY | 2022-08-04 16:26 | XMS_ITS | Encounter Summary ---
:1975 [place] [address] Care Team Providers Name Role Phone Adrián Reynolds MD Primary Care Provider [phone] Encounter Details Date Type Department Care Team Description 01/28/2014 Anesthesia Event Main Operating Room Maxine Santo MD [facility] [place] [address] [facility] [place] [address] [place] [address] Anesthesia Record Procedure Summary Procedure Name Responsible Anesthesia Start Anesthesia Stop Time Anesthesiologist Time @EXPLORATORY Maxine Mcpherson MD 01/28/1401/29 0117 LAPAROTOMY, WITH/WITHOUT BIOPSY(S) (WRVU 12.54) (Abdomen) Events Date Time Event Comment 01/28/20142232 Start 2234 AN Verify 2234 An Start Data 2238 An Induction 224 An Intubation 224 224 Anesthesia Ready 230 Procedure Start 01/29/2014 0108 Extubation/LMA Out 0111 Transport Pt transported t o PACU on 10 l/min FM with uninterrupted Et CO2 evident by continuous misting on FM with expir ation. SpO2 upon arrival in PACU 100%. 0111 an stop data 0116 Handoff The patient's ch art was reviewed. The current anestetic course as well as the anesthetic plans were also review ed. 0117 Stop Name Total Midazolam 2 mg fentaNYL 100 mcg IV Lidocaine 20 mg Propofol 200 mg Rocuronium 50 mg Ondansetron 8 mg Neostigmine 3 mg Glycopyrrolate 0.4 mg Succinylcholine 120 mg hydrocortisone 100 mg HYDROmorphone 0.8 mg meTOPROLOL (LOPRESSOR) injection 2 mg Lactated Ringers 0 mL Agents Name O2 Air N2O Sevoflurane (et) Blood No blood administrations on file. Lines, Drains, and Airways Type Details Placement Removal (RETIRED By SPR20) 12/08/11; 0333; 07/18/16 12/08/11 0333 by 05/25 0000 by Incision Ese March RN Scott, Mar k W Incision 01/28/14; abdomen; 01/28/14 0000 by 07/18/16 000 0 by 07/18/16 Antonio Brewer RN Scott, Mark W PIV 01/28/14; 1900; median 01/28/14 1900 by 01/29/14 0639 by cubital vein Star Mckeon RN Jacobi, Lee Ann, MICHELLE (antecubital fossa), right; xaak-geo-uupjdi catheter system; 18 gauge; star mckeon; tolerated well, appears comfortable; 0; removed per policy/procedure (leaking at site); 01/29/14; 0639 NG/OG Tube 01/28/14; 2246; 01/28/14 2246 by 01/31/14 0000 b y orogastric; 18 Fr; Chepe Coe MD Cherniaw ski, Stefan mouth; Removed by other; MICHELLE Orantes 01/31/14 Urethral Catheter 01/28/14; 2250; 01/28/14 2250 by 01/31/14 0000 by indwelling double lumen Antonio Brewer RN Cherniaw ski, Stefan catheter; 100% silicone; MICHELLE Orantes 16; inserted at this facility; 1; 5; 10; none; removed by other; 01/31/14 ETT Mask Ventilation: Not 01/28/14 2254 by 01/29/14 0108 by Attempted (0); ETT Type: Chepe Coe, Cuffed; ETT Size: 7 mm; Mac Blade: 3; Notes: Asleep, Stylette, Pre-O2, RSI, Cricoid Pressure; Attempts: 1; Laryngoscopy Grade: 1; ETT Placement Verified By: Auscultation, Capnometry, Visual; Secured at Teeth: 22 cm; Inserted by: dk angeles crna Ileostomy 01/29/14; ileostomy; 01/29/14 0000 by 07/17/16 0 000 by 07/17/16 Antonio Brewer, RN Abram Molina documented in this encounter Social History Tobacco Use Types Packs/Day Years Used Date Smoking Tobacco: Former Cigarettes Comments: quit 2 years ago Alcohol Use Standard Drinks/Week Comments No 0 (1 standard drink = 0.6 oz pure alcoho l) Sex Assigned at Date Recorded Not on file documented as of this encounter OR Notes Anesthesia Postprocedure Evaluation - Chepe Coe MD - 01/29/2014 5:09 AM EDT Patient: Monique Zamora Procedure(s) Performed: Procedure(s): @EXPLORATORY LAPAROTOMY, WITH/WITHOUT BIOPSY(S) HEMICOLECTOMY, WITH ILEOSTOMY Actual Anesthetic: general Patient location: PACU Post-op pain: Adequate analgesia Post-op nausea: no nausea or vomiting Last Vitals: Filed Vitals: 01/29/14 0300 BP: 159/76 Pulse: 79 Temp: 36.7 ??C (98.1 ??F) Resp: 20 Post-op cardiovascular and respiratory status: is stable Level of consciousness: awake, alert and oriented Complications: no apparent complications and tolerated the procedure well Fluid Status: normal Anesthesia Preprocedure Evaluation - Maxine Mcpherson MD - 01/28/2014 10:20 PM EDT Pre-Anesthesia Evaluation for: Monique Zamora a 38 y.o. female. Procedure(s): @EXPLORATORY LAPAROTOMY, WITH/WITHOUT BIOPSY(S) Patient Active Problem List Diagnosis ??? Obesity ??? AMA (advanced maternal age) multigravida 35+ ??? Rheumatoid arthritis ??? Anxiety ??? Depression Past Medical History Diagnosis Date ??? Rheumatoid arthritis(714.0) ??? Depression ??? Anxiety ??? Fibromyalgia Past Surgical History Procedure Date ??? section 2000 ??? section 2003 ??? section 2011 History Substance Use Topics ??? Smoking status: Former Smoker Types: Cigarettes ??? Smokeless tobacco: Not on file Comment: quit 2 years ago ??? Alcohol Use: No History Drug Use No Allergies Allergen Reactions ??? Sulfa (Sulfonamide Antibiotics) CIS - Anaphylaxis ??? Tape, Permeable Adhesive Medications: MAR and/or home medications have been reviewed. Physical Exam: There were no vitals filed for this visit. There is no height or weight on file to calculate BMI. Airway Assessment: Mallampati: II TM distance: >3 FB Neck ROM: full Cardiovascular Assessment: cardiovascular exam normal Pulmonary Assessment: pulmonary exam normal Dental Assessment: [facility] [place]: IV access: Peripheral line Anesthesia Plan: ASA 3 emergent general, with a(n) intravenous induction 38 yo F, hx of RA, and pneumatosis. Plan for ex-lap. Emergent. Plan RSI. Not appropriately NPO; last PO at 5pm (leah) Discussed R/B/A. Questions sought and answered. Consent obtained and placed in chart. Plan stress dose steroids. Region - Other Informed Consent: Anesthetic plan and risks discussed with patient. Plan discussed with attending and resident. [facility]. Assessment: documented in this encounter Plan of Treatment Not on filedocumented as of this encounter Visit Diagnoses Not on filedocumented in this encounter Administered Medications Inactive Administered Medications - up to 3 most recent administrations Medication Order MAR Action Action Date Dose Rate Site fentaNYL 50mcg/mL injection Given 01/28/2014 10:40 PM EDT 100 mcg PRN, Starting on Aditi 01/28/14 at 2240, Until Sat01/29/14 at 0117, Pain, Anesthesia Intra-op, Routine glycopyrrolate (ROBINUL) injection Given 01/29/2014 12:47 AM EDT 0.4 mg PRN, Starting on Sat01/29/14 at 0047, Until Sat01/29/14 at 0117, Anesthesia Intra-op, Routine hydrocortisone sodium succinate (PF) Given 01/28/2014 11:03 PM E DT 100 mg (SOLU-CORTEF) injection PRN, Starting on Sat01/28/14 at 2303, Until Sat01/29/14 at 0117, Anesthesia Intra-op, Routine HYDROmorphone (DILAUDID) injection Given 01/28/2014 11:14 PM EDT 0.4 mg PRN, Starting on Sat01/28/14 at 2302, Until Sat01/29/14 at 0117, Pain, Anesthesia Intra-op, Routine Given 01/28/2014 11:02 PM EDT 0.4 mg lactated ringers infusion New Bag 01/28/2014 10:33 PM EDT mL CONTINUOUS PRN, Starting on Sat01/28/14 at 2233, Until Sat01/29/14 at 0117, Anesthesia Intra-op lidocaine (PF) (XYLOCAINE) 100 mg/5 mL (2 %) Given 10:40 PM EDT 20 mg injection PRN, Starting on Sat01/28/14 at 2240, Until Sat01/29/14 at 0117, Anesthesia Intra-op, Routine metoprolol (LOPRESSOR) injection Given 01/28/2014 11:19 PM EDT 2 mg PRN, Starting on Sat01/28/14 at 2319, Until Sat01/29/14 at 0117, High Blood Pressure, Anesthesia Intra-op, Routine midazolam (PF) (VERSED) 1 mg/mL injectio n Given 01/28/2014 10:33 PM EDT 2 mg PRN, Starting on Sat01/28/14 at 2233, Until Sat01/29/14 at 0117, Sleep, Anesthesia Intra-op, Routine neostigmine (PROSTIGMINE) injection Given 01/29/2014 12:48 AM EDT 3 mg PRN, Starting on Sat01/29/14 at 0048, Until Sat01/29/14 at 0117, Anesthesia Intra-op, Routine ondansetron (ZOFRAN) injection Given 01/29/2014 12:46 AM EDT 8 mg PRN, Starting on Sat01/29/14 at 0046, Until 5/23/14 at 0117, Nausea, Anesthesia Intra-op, Routine propofol (DIPRIVAN) 10 mg/mL bolus injection Given 10:40 PM EDT 200 mg (Anesthesia) PRN, Starting on Aditi 01/28/14 at 2240, Until Sat01/29/14 at 0117, Anesthesia Intra-op rocuronium (ZEMURON) injection Given 01/28/2014 10:58 PM EDT 50 mg PRN, Starting on Aditi 01/28/14 at 2258, Until Sat01/29/14 at 0117, Anesthesia Intra-op, Routine succinylcholine (ANECTINE) injection Given 01/28/2014 10:39 PM EDT 120 mg PRN, Starting on Aditi 01/28/14 at 2239, Until Sat01/29/14 at 0117, Anesthesia Intra-op, Routine documented in this encounter Care Teams Emergency Nurse Relationship Specialty Start Date End Date Adrián Reynolds MD PCP - General 12/04/13 10/30/[address] [place] [address] documented as of this encounter
--- OUTSIDE RECORDS SUMMARY | 2022-08-04 16:26 | XMS_ITS | Encounter Summary ---
:[address] [place] [address] Care Team Providers Name Role Phone Adrián Reynolds MD Primary Care Provider [phone] Reason for Visit Reason Onset Date Comments Medication Refill 04/07/2014 Encounter Details Date Type Department Care Team Description 04/07/2014 Refill [place] [facility] [place] [place] [address] RHEUMATOLOGY DEPT. [phone] [place], [place] [address] (Wo rk) Social History Tobacco [...] filedocumented in this encounter Care Teams Manager Forensic Relationship Specialty Start Date End Date Adrián Reynolds MD PCP - General 12/04/13 10/30/15 [address] [place] [address] documented as of this encounter
--- OUTSIDE RECORDS SUMMARY | 2022-08-04 16:26 | XMS_ITS | Encounter Summary ---
:1975 Author Organization [facility] [place] [address] Care Team Providers Name Role Phone Adrián Reynolds MD Primary Care Provider Reason for Visit Reason Onset Date Comments Other 05/25/2014 stoma concerns Encounter Details Date Type Department Care Team Description 05/25/2014 Telephone General Surgery at [facility] Rocio Lorenz, Other (stoma concerns) [facility] [place] [address] Social History Tobacco Use Types Packs/Day Years Used Date Smoking Tobacco: Former Cigarettes Smokeless Tobacco: Never Comments: Quit in 2008 Alcohol Use Standard Drinks/Week Comments No 0 (1 standard drink = 0.6 oz pure alcoho l) Sex Assigned at Date Recorded Not on file documented as of this encounter Miscellaneous Notes Telephone Encounter - Rocio Lorenz, RN - 05/25/2014 4:34 PM EDT Monique called the clinic today with concerns about her stoma. She has had some high liquid output recently which has led to some skin irritation. She reports an area of edema around her stoma which has a white raised appearance and is itchy. It is about 1/2 inch thick and 4.5 inches long. She has been taking the appropriate measures to thicken her output but is concerned about this area. Spoke to Claudette [place] and she suggested she try calling Kimberly Keys an ostomy nurse in the [facility]. Monique will try contacting Kimberly. If she needs further assistance she will call us back. documented in this encounter Plan of Treatment Not on filedocumented as of this encounter Visit Diagnoses Not on filedocumented in this encounter Care Teams Transition Lead Relationship Specialty Start Date End Date Adrián Reynolds MD PCP - General 12/04/13 10/30/[address] [place] [address] documented as of this encounter
--- OUTSIDE RECORDS SUMMARY | 2022-08-04 16:26 | XMS_ITS | Encounter Summary ---
:1975 Author Organization [facility] [place] [address] Care Team Providers Name Role Phone Adrián Reynolds MD Primary Care Provider [phone] Reason for Visit Reason Comments Follow Up Surgery Encounter Details Date Type Department Care Team Description 02/10/2014 Office Visit General Surgery at [facility] Attention to ileostomy [facility] Ag luke (Primary Dx) [place] [address] Social History Tobacco Use Types Packs/Day Years Used Date Smoking Tobacco: Former Cigarettes Comments: quit 2 years ago Alcohol Use Standard Drinks/Week Comments No 0 (1 standard drink = 0.6 oz pure alcoho l) Sex Assigned at Date Recorded Not on file documented as of this encounter Progress Notes Claudette [place] - 02/10/2014 3:35 PM EDT Post op Clinic Visit Diagnosis: Hospital Problems as of 02/10/2014 None Problem List as of 02/10/2014 AMA (advanced maternal age) multigravida 35+ Anxiety Depression Rheumatoid arthritis Obesity Pneumatosis coli Surgery/Date: 01/29/14 exp lap, right mary colectomy with 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 Ostomy Supplies: wearing [employer] cut to fit flat pouch, #[id number] with paste. Supplies Ordered/Vendor:ordered via [employer] but they refused because of pt's Insurance. [facility] Ordered: pt ordered samples from [employer] Patient Teaching/Follow-up:Pt looks well but has had a few leaks in the pouch over the weekend. Since 02/07 the pouch has been intact. She has learned to change her own pouch out of necessity. I removed her pouch and her stoma is flush to the skin about 3 cm below a deep crease at her umbilicus. Her output has become quite thick mush with diet alone, per pt. Her totals have been less than 1000 cc/d andher u/o has been well over 1000 cc/d. Her stoma is red and viable and stoma and skin are still well approximated with sutures intact. She does have some excoriated skin along the superior aspect of herstoma, likely from stool exposure. I treated Stomahesive powder and Nosting skin prep. I then applied a new Coloplast cut to fit pouch with paste as this had worked. I did cut out a Coloplast cut to fit convex for her to trial but she did not want to test today as she has long trip home (#[id number]). I sent two of these pouches home with her to trial. I told her she could stop measuring her output. She is adjusting well to her ostomy and is not teary at all today. Her good friend is waiting for her in the waiting area. We will f/u in a couple of weeks and she will call if leaks continue. I did tell herabout Melba cobb if her skin should become sore and more weepy. Jessica Smith MD - 02/10/2014 2:38 PM EDT Images from the original note were not included. General Surgery Outpatient Progress Note Monique is s/p R hemicolectomy and end ileostomy on 01/28. She came to clinic today for wound check and staple removal. Patient has noticed a rash around her incision over the past few days. She denies fevers/chills, but does say she feels colder than usual. No abdominal pain, nausea, or vomiting. On examination, her incision is well healed, with some reactive erythema extending about 1.5cm circumferentially around the upper part of her incision. Her umbilicus is wet with a small ulcerated area from pressure. Inferior to her incision there is a wider area of superficial erythema which blanches. There is a very small area of fluctuance to the L of her incision which is tender to deep palpation, but I cannot express drainage from that area. There is no communication from the fluctuance to the incision. The incision is completely closed, and the patient says she did have a little bit of yellow drainage there for a few days but this resolved. She has otherwise been doing well, weaned off narcotics, good activity and appetite, keeping up with her ostomy output. Patient may have postoperative seroma which should resolve on its own. Her erythema and rash are more superficial and may be reactive to her ezekiel and prior dressings. Do not feel that she needs abx at this time, since she hasn't had fevers/chills at home. Patient has an appointment next week with Rheumatology and will be back at [facility]. Until then, instructed patient to keep an eye on her incision and to call us if it worsens, or if she develops fevers >101.5, chills, abdominal pain, or nausea. Patient expressed understanding and is comfortable with the plan. Patient seen & examined with Dr. Patiño and d/w Dr. Robison and Dr. Graham. documented in this encounter Plan of Treatment Not on filedocumented as of this encounter Visit Diagnoses Diagnosis Attention to ileostomy - Primary documented in this encounter Care Teams Java Web Developer Relationship Specialty Start Date End Date Adrián Reynolds MD PCP - General 12/04/13 10/30/[id number] [place] [address] documented as of this encounter
--- OUTSIDE RECORDS SUMMARY | 2022-08-04 16:26 | XMS_ITS | Encounter Summary ---
:1975 Author Organization [place] [address] Care Team Providers Name Role Phone Fadia Bautista MD Primary Care Provider [phone] Reason for Visit Reason Comments Abdominal Pain Encounter Details Date Type Department Care Team Description 01/28/2014 - Surgery Main Operating Room Deepthi Alexander MD @EXPLORATORY 01/29/2014 [facility] LAPAROT [facility] WITH/WITHOUT BIOPSY(S) [facility] GENERAL SURGE RY (WRVU 12.54) [address] [phone] (Work) [phone] Social History Tobacco Use Types Packs/Day Years [...] in this encounter Discharge Instructions Patient InstructionsHeide Ospina MD - 01/29/2014 5:42 PM EDT Call your doctor if: Please call if you notice worsening redness or drainage from incision(s) lasting longer than 5 days after your surgery, any foul- smelling drainage from the incision, pain not controlled by pain medications, persistent nausea and vomiting, or for any fevers greater than 101.3 F. The number for questions is [phone] before 5 PM weekdays and [phone] after 5 PM and weekends. Activity level: [...] will be mailed to you. Please call [phone] (clinic number for appointments) to confirm date and time of your appointment if you do not receive your apointment in a timely fashion. DIVISION OF COLON AND RECTAL SURGERY High Ileostomy Output Patient Instructions: This content was designed for use in [facility] Division of Colon & Rectal Surgery Patients [...] body) but with coconut water, Pedialyte, or chbb-yqn-rqhdcuu Oral Rehydration Solutions(ORS) available from the pharmacy. 4. If you are having thin watery/loose stool then it needs to be thickened with diet ?? eat stool thickening foods such as the BRAT diet (soft Bananas, white Rice, Applesauce, Ellicott) aswell as cheese, creamy peanut butter, pasta, [...] still >1.5L per 24 hours then start zwhl-uru-ganvzun Imodiumto slow your stool down ?? Start [...] Intake and Output for New Ileostomy Patients [facility] Division of Colon & Rectal Surgery Name: [...] every 7 days ondansetron (ZOFRAN-ODT) 4 0 201 4 07/19/2014 mg oral disintegrating tablet folic [...] mouth daily. clonAZEpam (KLONOPIN) 1 mg 0 200 7 07/19/2014 tablet documented as of this [...] I packed her 4 more ofthis pouch, #[id number], and paperwork. We will f/u on 02/10 [...] with friend. Report called to [facility]. Claudette Johnson - 02/03/2014 12:57 PM EDT Intake and Output for New Ileostomy Patients [facility] Division of Colon & Rectal Surgery Name: [...] CWOCN or Ana Kingsley RN CWOCN at [phone]. Equipment: Company/Order Numbers Wet and dry soft cloth (paper towels) Plastic bag Pen, Scissors, stoma pattern One-piece Pouch Coloplast #[id number] Protective powder Convate #: [id number] Stomahesive Paste Convate #[id number] Non-allergic tape (4 strips) [employer] paper tape if necessary Liquid Deodorant Nelson M9 #17 Other Supplies (if any) Procedure: 1. Using [...] apply a dusting of Stomahesive protective powder. Grambling off excess powder, or wafer will not [...] or into thespital. Pharmacy or Medical Supply: [facility] DIVISION OF COLON AND RECTAL SURGERY High Ileostomy Output Patient Instructions: This content was designed for use in [facility] Division of Colon & Rectal Surgery Patients [...] body) but with coconut water, Pedialyte, or hehd-tca-qrajiqw Oral Rehydration Solutions(ORS) available from the pharmacy. 4. If you are having thin watery/loose stool then it needs to be thickened with diet ?? eat stool thickening foods such as the BRAT diet (soft Bananas, white Rice, Applesauce, Ellicott) aswell as cheese, creamy peanut butter, pasta, [...] still >1.5L per 24 hours then start qesm-cee-wkbrtlz Imodiumto slow your stool down ?? Start [...] a liquid deodorizer into your pouch--such as [place] M9 drops. Odor offenders in the food [...] Some of these offenders are popcorn, nuts, icelandic vegetables, coconut, whole kernel corn, seeds, orange [...] Pt with Ileostomy/Colostomy When to call your software developer/ MD Change in Color: The stoma should [...] disposable pouch should be applied. Notify your script writer or MD. Prolapse: The term implies that [...] give your Ostomy Nurse a call. Juma Chawla, LEANNE - 02/03/2014 11:44 AM EDT Physical Therapy Treatment Note Visit #: 3 Patient Dx: Pt. is a 38 y.o. female admitted on 01/28/[address] Alexander, Deepthi Luong MD for 6 weeks of RLQ abdominal [...] Total timed interventions: 25 minutes TE-F Pager: [phone] JUMA CHAWLA, [facility] Physical Therapy Rehabilitation Department Melanie Meredith RN - 02/03/2014 10:38 AM EDT Care Management/ CRC pager# [phone]/ Discharge note S: I do feel ready to head home today. I had a visit with the ostomy nurse yesterday and then I met with Haydee yesterday. That was a help. Having home visits through [facility] will be a good plan. O: Met with patient this morning. Patient is POD# 6 exp lap, right colectomy with end colostomy. Referral in place to [facility] for home RN visits and ET RN Kimberly Keys visit. A/P: creative technologist to call report to SYD and Discharge Summary to be faxed. Heide Ospina MD - 02/03/2014 6:42 AM EDT General Surgery Resident Inpatient Progress Note DOA: 01/28/2014 6 Diet: Fiber/Residue Restricted Code: Full Code Room: [facility] ID: Monique Melgar is a 38 y.o. [...] ostomy nurse consult. Perioperative vancomycin/zosynto stop today. Lim out if ambulating HD#3/POD#1: MIVF decreased, Lim removed, NGT to gravity and possibly pulled, [...] ??? [DISCONTINUED] HYDROmorphone Stopped (02/02/141728) ??? [DISCONTINUED] WIRE WEAVER HELPER bishop oxyCODONE, [DISCONTINUED] oxyCODONE, promethazine, Vancomycin Level - MAR Order Reminder, ondansetron, [DISCONTINUED] diphenhydrAMINE, [DISCONTINUED] nalOXone, [DISCONTINUED] WIRE WEAVER HELPER bishop, prochlorperazine,prochlorperazine O: Last value Range last [...] four extremities spontaneously Labs: Recent Labs Basename 02/03/1432502/02/1441502/01/14328 WBC 12.2* 12.8* 12.4* HGB 10.9* 12.4 12.7 HCT 33.5* 37.9 38.4 PLATELET 225 230 184 No results found for this basename: PT,PTT,INR in the last 168 hours Recent Labs Basename 02/03/1432502/02/1441502/01/14 032 NA 136 136 137 K 3.3* 4.3 3.7 CL 100 101 98 CO2 25 24 27 BUN 17 13 12 CREATININE 0.73 0.72 0.62* Recent Labs Basename 02/03/1432502/02/1441502/01/14 032 CALCIUM 9.0 9.2 9.2 MAGNESIUM 0.77 0.92 [...] Centeno RN - 02/03/2014 2:59 AM EDT WIRE WEAVER HELPER was taken down this afternoon, medicated with [...] week, unless consulted sooner. Beni Madera II, - 02/02/2014 12:57 PM EDT Rheumatology Fellow [...] also arrange for f/u with her primary fishing rod assembler Dr. Valerio within 1-2 weeks of discharge. [...] another patient of ours who works on [employer] who has offered to meetwith [employer]. SHe is very interested in this and I will check back with her to see if she would like me to set this up. She said she is very outgoing and would love to have someone she could ask questions to. We will continue to follow. Declan Graham MD - 02/02/2014 11:12 AM [...] and evaluated the patient. I reviewed Dr. Ospina[]'s note and agree with the findings andplans as documented. Heide Ospina MD - 02/02/2014 7:42 AM EDT General Surgery Resident Inpatient Progress Note DOA: 01/28/2014 5 Diet: Fiber/Residue Restricted Code: Full Code Room: 313/[facility] ID: Monique Melgar is a 38 y.o. [...] ostomy nurse consult. Perioperative vancomycin/zosynto stop today. Lim out if ambulating HD#3/POD#1: MIVF decreased, Lim removed, NGT to gravity and possibly pulled, [...] mEq 50 mL/hr (02/01/142156) ??? HYDROmorphone ??? WIRE WEAVER HELPER bishop promethazine, Vancomycin Level - MAR Order Reminder, ondansetron, diphenhydrAMINE, nalOXone, WIRE WEAVER HELPER bishop, prochlorperazine, prochlorperazine O: Last value Range last 24hrs Temperature Temp: 37 ??C (98.6 ??F) Temp: [36.4 ??C (97.5 ??F)-37.1 ??C (98.8 ??F)] Heart Rate Heart Rate: 81 Heart Rate: [64-104] Blood Pressure BP: 112/60 mmHg BP: (112-126)/(60-87) Respiratory Rate Resp: 16 Resp: [16-18] SpO2 SpO2: 100 % SpO2: [93 %-100 %] Date 02/02/14 0700 - 02/03/14 0659 Shift 7456-2401 9256-4220 9331-4507 24 Hour Total I N T A [...] four extremities spontaneously Labs: Recent Labs Basename 02/02/14 0416 02/01/1432801/31/14 0409 WBC 12.8* 12.4* 11.0* HGB 12.4 12.7 10.3* HCT 37.9 38.4 32.7* PLATELET 230 184 157 No results found for this basename: PT,PTT,INR in the last 168 hours Recent Labs Basename 02/02/14 0416 02/01/14 0329 01/31/14 0409 NA 136 137 136 K 4.3 3.7 3.8 CL 101 98 98 CO2 24 27 31 BUN 13 12 18 CREATININE 0.72 0.62* 0.64* Recent Labs Basename 02/02/14 0416 02/01/14 0329 01/31/14 0409 CALCIUM 9.2 9.2 8.9 MAGNESIUM 0.92 [...] NEURO: - Pain well controlled continue with WIRE WEAVER HELPER, IV Tylenol, transition to PO pain meds and DC WIRE WEAVER HELPER later ifpain controlled CV: - HD stable, [...] I assumed care of this pt from 4670-5532. Assessment remains unchanged from previous RN. Pt [...] ostomy nurse consult. Perioperative vancomycin/zosynto stop today. Lim out if ambulating HD#3/POD#1: MIVF decreased, Lim removed, NGT to gravity and possibly pulled, [...] [98 %-99 %] 01/31 0701 - 02/01 07 In: 1950 [P.O.:1320; I.V.:630] Out: 4750 [Urine:2450] Physical Exam: General: NAD, resting comfortably CVS: RRR Pulm: CTAB Abd: soft, appropriately tender. Midline dressing ezekiel in place c/d/i. Enteric output in ostomy, minimal flatus. : voiding w/o difficulty Skin: warm, dry Neuro: nonfocal,moving all four extremities spontaneously LABS: Recent Labs Basename 02/01/1432801/31/1440801/30/14 0350 WBC 12.4* 11.0* 15.9* HGB 12.7 10.3* 11.9 HCT 38.4 32.7* 36.8 PLATELET 184 157 210 PT -- -- -- INR -- -- -- PTT -- -- -- Recent Labs Basename 02/01/1432801/31/1440801/30/14 0350 NA 137 136 138 K 3.7 [...] NEURO: - Pain well controlled continue with WIRE WEAVER HELPER, IV Tylenol CV: - HD stable, no active issues PULM: - Encourage IS 10x/hr FEK/: - MIVF @ 50cc/hr - Discontinue Lim today GI: - Plan for NGT gravity [...] on 01/29/14. Precautions: Fall risk, back pain, WIRE WEAVER HELPER Staff communication/Mobility Recommendations: Ambulation with FWW for distances out of room close supervision, As tolerated. Interval History: d/c lim and increases Ind with ostomy S: I [...] get OOB, pt will practice. ?? Needed WIRE WEAVER HELPER pump at end of session. Ind in room without AD, Steady gait. Pain: 04/18 end of session Education: Pt/family education ongoing [...] Total timed interventions: 23 minutes TE-F/GT Pager: [phone] BARBARA TAO HORSE IDENTIFIER Physical Therapy Rehabilitation Department Edmond Patiño MD [...] ostomy nurse consult. Perioperative vancomycin/zosynto stop today. Lim out if ambulating HD#3/POD#1: MIVF decreased, Lim removed, NGT to gravity and possibly pulled, [...] NEURO: - Pain well controlled continue with WIRE WEAVER HELPER, IV Tylenol x 4 doses CV: - HD stable, no active issues PULM: - Encourage IS 10x/hr FEK/: - MIVF @ 50cc/hr - Discontinue Lim today GI: - Plan for NGT gravity [...] status, Full Code EDMOND PATIÑO MD Luis Mora - 01/30/2014 10:09 AM EDT General Surgery [...] ostomy nurse consult. Perioperative vancomycin/zosynto stop today. Lim out if ambulating HD#3/POD#1: MIVF decreased, Lim removed, NGT to gravity and possibly pulled, [...] serosang shadowing. Brown stool in ostomy. : Lim in place Skin: warm, dry Neuro: nonfocal,moving [...] NEURO: - Pain well controlled continue with WIRE WEAVER HELPER, IV Tylenol x 4 doses CV: - HD stable, no active issues PULM: - Encourage IS 10x/hr FEK/: - MIVF @ 50cc/hr - Discontinue Lim today GI: - Plan for NGT gravity [...] DISPO: - Floor status, Full Code LUIS MORA MD Claudette Johnson - 01/29/2014 1:00 PM EDT Inpatient post op note Diagnosis: pneumatosis Surgery/Date: Procedure(s) (LRB): @EXPLORATORY LAPAROTOMY, WITH/WITHOUT BIOPSY(S) (N/A) HEMICOLECTOMY, WITH ILEOSTOMY (Right) Appliance: Activelife with paste Changed: [x} Yes Stoma:red and viable, just about flush to abd, RLQ, small diameter, 1 1/8 Peristomal Skin:intact Teaching:Pt is less than 12 hrs post op but was anxious to see software developer and family was in as well. Given it is a 3 day weekend I decided to change her Ileostomy pouch as I wanted to assess her stoma and skin. Pt tolerated well though she did use her WIRE WEAVER HELPER during the change. She was sitting in [...] 11:26 AM EDT Care Management/ CRC Pager# [phone] assisting Giuliano Nixon RN/ Assessment and Initial discharge planning S: Coming back later would be fine so I can talk with my family. O: Met briefly this morning. Patient's Abdiel, daughter Madian and son Heide in visiting. Notes reviewed. Patient and family reside in [facility]. Patient has [employer]ieker[employer] POS insurance.No Advance Directives on file here at [facility]. Patient admitted through [facility] ED with abdominal pain, nausea. CT scan revealed pneumatosis. Patient is now POD # 1 exp lap, right colectomy with end ileostomy. Discussion with Enterostomal therapist Claudette Johnson RN. Patient is NPO except meds, NGT to LCWS. IVF at 100/hr. Hydromorphone WIRE WEAVER HELPER. Solumedrol 50mg IV q8hr. Zosyn IV q8hr q1vqgdx, Vancomycin IV q12hr k7athsw. Lim to gravity. Ileostomy pouch intact. PatientOOB with assistance. PT consult. 99% on 2.5liter oxygen via inpatient services rn. A: Patient progressing post-op. Supportive family. P: I will continue in CRC role, following patient's in-hospital course, offering support to patient/family, coordinating discharge planning when appropriate. Addendum at 1500: S: Getting a referral in to [facility] for home RN visits and Ostomy Specialist RN visitswould be great. Thanks for your help. O: Met with patent this afternoon. Message to Wood Casket Assembler for referral to [facility]. Care Management note for MD Discharge Summary (with VNA information) completed and pended by movie writer. A/P: Continue in CRC role. At time of patient's discharge, kennel staff member to call report to [facility]NA and MD [...] ostomy nurse consult. Perioperative vancomycin/zosynto stop today. Lim out if ambulating 24hr events: ?? As [...] serosang shadowing. Brown stool in ostomy. : lim Skin: warm, dry Neuro: nonfocal,moving all four [...] hemicolectomy with ileostomy on 01/29. PLAN: NEURO: -WIRE WEAVER HELPER, IV tylenol x 4 doses CV: -HD stable; lactate 4 on arrival, 3.9 post-op - follow UOP and bolus PRN PULM: -encourage IS 10x/hr FEK/: -LR @100cc/hr -lim out today if ambulatory GI: -NPO, awaiting ROBF HEME: -HD stable, trend hgb ID: -perioperative vanc/zosyn - to stop tonight ENDO: -normoglycemia RHEUM: -last took humira on 01/24; will create plan for restart of immunosuppressants though anastamosis leak risk is worrisome PPX: -SCDs, SQH, nexium DISPO: -floor [facility], DO Department of General Surgery Pager: [phone] Kathie Wan RN - 01/29/2014 3:00 AM [...] side of bed with assist. Using Dilaudid WIRE WEAVER HELPER. Stated pain level 5/10. Lim intact patent passing clear dark yellow urine. [...] Nausea is better, pt resting quietly, call prery in reach, clinical status unchanged. Dr Garcia aware of pt pain level. Janene Gacria MD - 01/28/2014 8:39 PM EDT Chief [...] CT done as an outpatient here at [facility] today. She has air in her bowel [...] 11:08 AM EDT Discharge Summary - Heide Ospina MD - 02/03/2014 12:08 PM EDT Inpatient [...] had a CT scan performed 01/04 at [facility] which was normal by report, without pneumatosis. [...] WITH/WITHOUT BIOPSY(S) HEMICOLECTOMY, WITH ILEOSTOMY Hospital Course: Monique Melgar admitted as above. Lactate 4. Discussed [...] ostomy nurse consult. Perioperative vancomycin/zosynto stop today. Lim out if ambulating HD#3/POD#1: MIVF decreased, Lim removed, NGT to gravity and possibly pulled, [...] nurse practitioner, clinical nurse specialist or physician's marketing communications assistant who is working directly with them, [...] changes will need to be obtained from [facility] General Surgery Nurse Line [phone] or from this patient's PCP: FADIA BAUTISTA MD [address] [place] [phone] All A agencies which cover the area of patient's residence have been reviewed, either verbally or in writing, and patient/family have chosen the indicated home health care agency for home services. [facility] PHONE: [phone] FAX: [phone] RN visits to begin on day after patient's discharge to home, if possible. RN visits 3-4times for post-operative assessment, checking for signs and symptoms of infection. Assess nutrition and hydration/abdomen/stooling via ileostomy. Reinforcement of teaching about ileostomy care. Referral to Kimberly Keys RN. Cardio-pulmonary assessment. Medication review. Question Response Notes Agency name and contact information [facility] Patient location post discharge home What services are requested Registered Nurse Start date 02/04/2014 Responsible MD post discharge contact info [facility] Dr. Deepthi Alexander or PCP Fadia Bautista [...] 101.3 F. The number for questions is [phone] before 5 PM weekdays and [phone] after 5 PM and weekends. Activity level: [...] will be mailed to you. Please call [phone] (clinic number for appointments) to confirm date and time of your appointment if you do not receive your apointment in a timely fashion. DIVISION OF COLON AND RECTAL SURGERY High Ileostomy Output Patient Instructions: This content was designed for use in [facility] Division of Colon & Rectal Surgery Patients [...] body) but with coconut water, Pedialyte, or mcrj-efl-loamadm Oral Rehydration Solutions(ORS) available from the pharmacy. 4. If you are having thin watery/loose stool then it needs to be thickened with diet ?? eat stool thickening foods such as the BRAT diet (soft Bananas, white Rice, Applesauce, [place]) aswell as cheese, creamy peanut butter, pasta, [...] still >1.5L per 24 hours then start fdxq-yhd-kndgyqd Imodiumto slow your stool down ?? Start [...] Intake and Output for New Ileostomy Patients [facility] Division of Colon & Rectal Surgery Name: [...] of Trauma and Acute Care Surgery - [phone] Signed: HEIDE OSPINA MD 02/03/2014 Plan of Care - Denisa [...] Obstetrics) Intervention: Pain Management Interventions Patient using WIRE WEAVER HELPER with dilaudid to control pain. Patient states [...] a 38 y.o. female who presented to [facility] on 01/28/14 for abdominal pain found to [...] keep po down (team thinking her pain meds-WIRE WEAVER HELPER pump- may be adding to this). 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 Rose Ricci MD pg [phone] Plan of Care - Jose Joyner RN [...] Intervention: Pain Management Interventions Patient still using WIRE WEAVER HELPER around the clock for pain control. Patient [...] with ezekiel intact. Ostomy appears to by [place] in color, and patient proficiently performs ostomy [...] Patient's ileostomy with thick, dark brown output. software developer came, changed ostomy bag and educated patient [...] continue to monitor. Initial Assessments - Shena Antonio Jere, PT - 01/29/2014 10:52 AM EDT Physical [...] BIOPSY(S) performed by Deepthi Alexander MD at [facility] MAIN OR ??? Intestine surg procedure unlisted 01/28/2014 HEMICOLECTOMY, WITH ILEOSTOMY performed by Deepthi Alexander MD at [facility] MAIN OR Social History: Patient lives with their family ( and 3 children) in [place], [place] in a 1 level home. Stairs: 3 with a rail to enter. Baseline Mobility: Indep prior to admission Equipment at home: None Precautions/Special Considerations: Fall risk, back pain, NG to suction, Lim, and WIRE WEAVER HELPER Subjective: ???The pain is more tolerable now. [...] tolerated today???s evaluation with 7/10 pain (used WIRE WEAVER HELPER), needed CGA for transfers and ambulation, and [...] EVALUATION Total timed interventions: 0 minutes SHENA ANTONIO PT 01/29/2014 Pager: [phone] Physical Therapy Rehabilitation Department Op Note - Deepthi Alexander MD - 01/29/2014 7:28 AM EDT [facility] Operative Note Patient Name: Monique Melgar : [id number] MR#: [id number] Case Date: 01/28/2014 - 01/29/2014 Surgeon: Surgeon(s) [...] Operative Note Patient Name: Monique Melgar : [id number] MR#: [id number] Case Date: 01/28/2014 - 01/29/2014 Surgeon: Surgeon(s) [...] Provider, Scanning - 01/28/2014 9:03 PM EDT Makicellaneous - Provider, Scanning - 01/28/2014 7:55 PM [...] had a CT scan performed 01/04 at [facility] which was normal by report, without pneumatosis. [...] but will d/w Rheum) Talk to her fishing rod assembler tomorrow Serial lactates and abdominal exams, close [...] patient 01/28/2014 at 6:57 PM HPI Monique Melgar is a 38 y.o. female [...] phone by Dr. Arguelles to return to [facility] to the ED due to abnormal CT [...] TO LAB EDT procedure are i n ([facility]) the results section. CBC (WITH DIFF) Routine [...] TO LAB EDT procedure are i n ([facility]) the results section. HEMICOLECTOMY, WITH Routine 01/29/2014 1:12 AM ILEOSTOMY EDT SURGICAL PATHOLOGY Routine 01/29/2014 12:01 Resul ts for this REPORT AM EDT procedure are i n the results section. SPECIMEN TO PATHOLOGY Routine 01/29/2014 12:00 Re sults for this AM EDT procedure are i n the results section. HEMICOLECTOMY, WITH 01/28/2014 10:22 pneumatosis ILEOSTOMY ([facility] PM EDT 15.61) @EXPLORATORY 01/28/2014 10:22 pneumatosis [...] TYPE AND SCREEN STAT 01/28/2014 7:05 PM ([facility]/CGP/NICOLE) EDT BUN STAT 01/28/2014 7:05 PM Results [...] TO LAB EDT procedure are i n ([facility]) the results section. documented in this encounter Results (ABNORMAL) Differential, Automated (02/03/2014 3:26 AM EDT) [facility] Method Time Signature Neutrophils % 56.6 34.0 [...] Organization Address City/State/ZIP [place] [address] CERNER MILLENNIUM (ABNORMAL) Hemogram (02/03/2014 3:26 AM EDT) P athologist Signature WBC 12.2 (H) 4.0 - 10.0 CERNER x10(3)/mcL MILLENNIUM RBC 4.04 3.93 - CERNER 5.22 MILLENNIUM x10(6)/mcL Hemoglobin 10.9 (L) 11.2 - CERNER 15.7 gm/dL MILLENNIUM Hematocrit 33.5 (L) 34.0 - CERNER 45.0 % MILLENNIUM MCV 82.9 79.0 - CERNER 94.0 fL MILLENNIUM MCH 27.0 26.6 - CERNER 32.2 pg MILLENNIUM MCHC 32.5 32.0 - CERNER 36.5 gm/dL MILLENNIUM Platelets 225 145 - 370 CERNER x10(3)/mcL MILLENNIUM RDWSD 47.8 (H) 35.0 - CERNER 46.0 fL [facility] RDWCV 16.2 (H) 10.9 - CERNER 14.4 % MILLENNIUM MPV 9.8 9.0 - 12.0 CERNER fL [facility] Specimen Anatomical Collection Method Collection Time Receive d Time (Source) Location / / Volume Laterality Blood specimen 02/03/2014 3:26 AM 014 3:58 (specimen) EDT AM EDT Resulting Agency Comment Spec In Lab Janene Garcia MD HEMATOLOGY ORDERABLES Performing Organization Address City/State/ZIP Code Phon e Number [address] [facility] Phosphorus (02/03/2014 3:26 AM EDT) athologist Signature Phosphorus 3.3 2.5 - 4.5 CERNER mg/dL [facility] Specimen Anatomical Collection Method Collection Time Receive d Time (Source) Location / / Volume Laterality Blood specimen 02/03/2014 3:26 AM 014 3:58 (specimen) EDT AM EDT Resulting Agency Comment Spec In Lab Deepthi Alexander MD CHEMISTRY ORDERABLES Performing Organization Address City/[facility]/ZIP Code Phon e Number [address] [facility] Magnesium (02/03/2014 3:26 AM EDT) athologist Signature Magnesium 0.77 0.69 - 1.07 CERNER mmol/L [facility] Specimen Anatomical Collection Method Collection Time Receive d Time (Source) Location / / Volume Laterality Blood specimen 02/03/2014 3:26 AM 014 3:58 (specimen) EDT AM EDT Resulting Agency Comment Spec In Lab Deepthi Alexander MD CHEMISTRY ORDERABLES Performing Organization Address City/[facility]/ZIP Code Phon e Number [address] [facility] (ABNORMAL) Basic Metabolic Panel (non-fasting) (02/03/2014 3:26 AM EDT) athologist Signature Glucose Lvl 85 60 - 199 CERNER mg/dL MILLENNIUM Comment: Diabetes: >=200 mg/dL plus symp toms BUN 17 8 - 18 mg/dL CERNER MILLENNIUM Creatinine 0.73 0.70 - 1.20 mg/dL CERNER MILL ENNIUM Comment: Please note that the pediatric reference intervals supplied above were not validated at [facility]. Results from pediatri c patients should be [...] Organization Address City/State/ZIP [place] [address] CERNER MILLENNIUM (ABNORMAL) Differential, Automated (02/02/2014 4:16 AM EDT) [facility] gist Method Time Signature Neutrophils % 71.9 (H) [...] Organization Address City/State/[place] [address] CERNER MILLENNIUM (ABNORMAL) Hemogram [...] Garcia MD HEMATOLOGY ORDERABLES Performing Organization Address City/[facility]/ZIP Code Phon e Number [address] CERNER MILLENNIUM (ABNORMAL) Phosphorus (02/02/2014 4:16 AM EDT) athologist Signature Phosphorus 4.6 (H) 2.5 - 4.5 CERNER mg/dL MILLENNIUM Specimen Anatomical Collection Method Collection Time Receive d Time (Source) Location / / Volume Laterality Blood specimen 02/02/2014 4:16 AM 014 4:32 (specimen) EDT AM EDT Resulting Agency Comment Spec In Lab Deepthi Alexander MD CHEMISTRY ORDERABLES Performing Organization Address City/State/ZIP Code Phon e Number [address] CERNER MILLENNIUM Magnesium (02/02/2014 [...] Organization Address City/State/ZIP [place] [address] CERNER MILLENNIUM Basic Metabolic Panel (non-fasting) (02/02/2014 4:16 AM EDT) athologist Signature Glucose Lvl 104 60 - 199 CERNER mg/dL MILLENNIUM Comment: Diabetes: >=200 mg/dL plus symp toms BUN 13 8 - 18 mg/dL CERNER MILLENNIUM Creatinine 0.72 0.70 - 1.20 mg/dL CERNER MILL ENNIUM Comment: Please note that the pediatric reference intervals supplied above were not validated at [facility]. Results from pediatri c patients should be [...] Organization Address City/State/ZIP Code Phon e Number [place] [phone] CERNER MILLENNIUM (ABNORMAL) Differential, Automated (02/01/2014 3:29 AM EDT) [facility] Method Time Signature Neutrophils % 65.8 34.0 [...] Garcia MD HEMATOLOGY ORDERABLES Performing Organization Address City/[facility]/ZIP Code Phon e Number [place] [phone] CERNER MILLENNIUM (ABNORMAL) Hemogram [...] Garcia MD HEMATOLOGY ORDERABLES Performing Organization Address City/[facility]/ZIP Code Phon e Number [address] CERNER MILLENNIUM Phosphorus (02/01/2014 3:29 AM EDT) athologist Signature Phosphorus 4.5 2.5 - 4.5 CERNER mg/dL MILLENNIUM Specimen Anatomical Collection Method Collection Time Receive d Time (Source) Location / / Volume Laterality Blood specimen 02/01/2014 3:29 AM 014 3:33 (specimen) EDT AM EDT Resulting Agency Comment Spec In Lab Deepthi Alexander MD CHEMISTRY ORDERABLES Performing Organization Address City/[facility]/ZIP Code Phon e Number [address] CERNER MILLENNIUM Magnesium (02/01/2014 3:29 AM EDT) athologist Signature Magnesium 0.96 0.69 - 1.07 CERNER mmol/L MILLENNIUM Specimen Anatomical Collection Method Collection Time Receive d Time (Source) Location / / Volume Laterality Blood specimen 02/01/2014 3:29 AM 014 3:33 (specimen) EDT AM EDT Resulting Agency Comment Spec In Lab Deepthi Alexander MD CHEMISTRY ORDERABLES Performing Organization Address City/[facility]/ZIP [facility] Phon e Number [address] CERNER MILLENNIUM (ABNORMAL) Basic Metabolic Panel (non-fasting) (02/01/2014 3:29 AM EDT) athologist Signature Glucose Lvl 98 60 - 199 CERNER mg/dL MILLENNIUM Comment: Diabetes: >=200 mg/dL plus symp toms BUN 12 8 - 18 mg/dL CERNER MILLENNIUM Creatinine 0.62 (L) 0.70 - 1.20 mg/dL CERNER MILL ENNIUM Comment: Please note that the pediatric reference intervals supplied above were not validated at [facility]. Results from pediatri c patients should be [...] Organization Address City/State/ZIP [place] [address] CERNER MILLENNIUM (ABNORMAL) Differential, Automated (01/31/2014 4:09 AM EDT) [facility] Method Time Signature Neutrophils % 67.7 34.0 [...] Organization Address City/State/ZIP Code Phon e Number [place] [phone] CERNER MILLENNIUM (ABNORMAL) Hemogram [...] Garcia MD HEMATOLOGY ORDERABLES Performing Organization Address City/[facility]/[place] [address] CERNER MILLENNIUM Phosphorus (01/31/2014 4:09 AM EDT) P athologist Signature Phosphorus 3.4 2.5 - 4.5 CERNER mg/dL MILLENNIUM Specimen Anatomical Collection Method Collection Time Receive d Time (Source) Location / / Volume Laterality Blood specimen 01/31/2014 4:09 AM 014 4:29 (specimen) EDT AM EDT Resulting Agency Comment Spec In Lab Deepthi Alexander MD CHEMISTRY ORDERABLES Performing Organization Address City/[facility]/Z[place] [address] CERNER MILLENNIUM Magnesium (01/31/2014 4:09 AM EDT) P athologist Signature Magnesium 0.98 0.69 - 1.07 CERNER mmol/L MILLENNIUM Specimen Anatomical Collection Method Collection Time Receive d Time (Source) Location / / Volume Laterality Blood specimen 01/31/2014 4:09 AM 014 4:29 (specimen) EDT AM EDT Resulting Agency Comment Spec In Lab Deepthi Alexander MD CHEMISTRY ORDERABLES Performing Organization Address City/[facility]/Z[place] [address] CERNER MILLENNIUM (ABNORMAL) Basic [...] intervals supplied above were not validated at [facility]. Results from pediatri c patients should be [...] Volume Laterality Blood specimen 01/31/2014 4:09 AM 05/25/2 014 4:29 (specimen) EDT AM EDT Resulting Agency Comment Spec In Lab Janene Garcia MD CHEMISTRY ORDERABLES Performing Organization Address City/[facility]/ZIP Code Phon e Number [address] CERNER MILLENNIUM Vancomycin, trough (01/30/2014 8:25 AM EDT) athologist Signature Vanc Trough 9.6 mg/L CERNER [...] Garcia MD CHEMISTRY ORDERABLES Performing Organization Address City/[facility]/ZIP Code Phon e Number [address] CERNER MILLENNIUM Nucleated Red Blood Cells (01/30/2014 3:50 AM EDT) athologist Signature nRBC % Auto 0.0 0.0 - 0.2 CERNER % MILLENNIUM nRBC Abs Auto 0.000 0.000 - CERNER 0.012 MILLENNIUM x10(3)/mcL Specimen Anatomical Collection Method Collection Time Receive d Time (Source) Location / / Volume Laterality Blood specimen 01/30/2014 3:50 AM 014 4:00 (specimen) EDT AM EDT Resulting Agency Comment Spec In Lab Janene Garcia MD HEMATOLOGY ORDERABLES Performing Organization Address City/[facility]/ZIP Code Phon e Number [address] CERNER MILLENNIUM (ABNORMAL) Differential, Automated (01/30/2014 3:50 AM EDT) Patholo gist Method Time Signature Neutrophils % 86.7 (H) [...] Organization Address City/State/ZIP [place] [address] CERNER MILLENNIUM (ABNORMAL) Hemogram [...] Garcia MD HEMATOLOGY ORDERABLES Performing Organization Address City/[facility]/ZIP Code Phon e Number [address] CERNER MILLENNIUM Phosphorus (01/30/2014 3:50 AM EDT) athologist Signature Phosphorus 3.5 2.5 - 4.5 CERNER mg/dL [facility] Specimen Anatomical Collection Method Collection Time Receive d Time (Source) Location / / Volume Laterality Blood specimen 01/30/2014 3:50 AM 014 4:00 (specimen) EDT AM EDT Resulting Agency Comment Spec In Lab Deepthi Alexander MD CHEMISTRY ORDERABLES Performing Organization Address City/[facility] Phon e Number [address] CERNER MILLENNIUM Magnesium (01/30/2014 [...] Organization Address City/State/ZIP Code Phon e Number [place] [phone] CERNER MILLENNIUM (ABNORMAL) Basic [...] intervals supplied above were not validated at [facility]. Results from pediatri c patients should be [...] Garcia MD CHEMISTRY ORDERABLES Performing Organization Address City/[facility]/ZIP [facility] Phon e Number [address] CERNER MILLENNIUM (ABNORMAL) Lactate, [...] Garcia MD CHEMISTRY ORDERABLES Performing Organization Address City/[facility]/ZIP Code Phon e Number [address] CERNER MILLENNIUM (ABNORMAL) Lactate, [...] Alexander MD CHEMISTRY ORDERABLES Performing Organization Address City/[facility]/[place] [address] CERNER MILLENNIUM Surgical Pathology Report (01/29/2014 12:01 AM EDT) Component Value Ref Test Analysis Performed At [facility] gist Range Method Time Signature Surgical CERNER Pathology ? [facility] Report ? Provider: ?? DEEPTHI ALEXANDER ?Pt. Name: ?? SHAHEED CARTER MONIQUE Ag ? Acc #: ?[id number] ?Pt. MRN: ?[id number] ? Col Date: ?? 4 ? /Sex: ?1975,(38 years),Female ? Rec Date: ?? 01/29/2014 ? LOC: ?3WST ? SURGICAL PATHOLOGY ? ---Pathologic Diagnosis--- ? Right colon, resection: ?Right colon with pneumatosis coli. ?Appendix negative for diagnostic abnormality. ? CR-0 ? 02/05/14 ? [facility] ? 02/08/14 Verified by: ? Jmi Anderson MD ? Pathologist ? (Electronic Si [...] diameter. ? External Architecture: Preserved. ? Serosa: Benton-pink, smooth and glistening. ? Mucosa: Benton and pink with a normal folding architecture. There is a single ? 0.3 cm polyp in the ascending col on. ??No other lesions are identified. ? Wall Thickness: 0.1 cm. ? Margins: Uninvolved. ? Appendix: 5.0 x 0.6 c m, the serosal surface has injected vasculature but is ? otherwise benton-pink, s mooth and glistening. ??The wall averages 0.1 cm in ? diameter. ??The lumen contains fecalith. ? Sections/Processing: (A1) margins; (A2) polyp in ascending colon; (A3-A4) ? client account representative sectio ns; (A5) ileocecal valve; (A6) appendix. (R6) ??iwm ? ---Clinical Information--- ? Specimen Submitted: ? A - Right colon ? Clinical History: ? Pneumatosis ? [facility] ? Provider: ?? DEEPTHI ALEXANDER ?Pt. Name: ?? MONIQUE BARTON ? Acc #: ?[id number] ?Pt. MRN: ?[id number] ? Col Date: ?? 4 ? /Sex: ?1975,(38 years),Female ? Rec Date: ?? 01/29/2014 ? LOC: ?3WST ? SURGICAL PATHOLOGY ? Clinical Diagnosis: ? Same Specimen (Source) Anatomical Collection Method Collection Time Re ceived Time Location / / Volume Laterality 01/29/2014 12:01 AM EDT Deepthi Alexander MD PATHOLOGY/CYTOLOGY ORDERABLE S Performing Organization Address [facility]/[place] [address] MICHELLE ESCALANTE Specimen to Pathology (surgical or derm) (01/29/2014 12:00 AM EDT) Specimen (Source) Anatomical Collection Method Collection Time Re ceived Time Location / / Volume Laterality AP Specimen 01/29/2014 01/29/2014 12:0 0 AM EDT Narrative MICHELLE ESCALANTE - 01/29/2014 12:00 AM EDT Specimen requisition ordered. ??Separate Pathology report to follow Deepthi Alexander MD PATHOLOGY/CYTOLOGY ORDERABLE S Performing Organization Address [facility]/ZIP Code Phon e Number [address] MICHELLE ESCALANTE Blood culture (01/28/2014 8:40 PM EDT) [facility] Method Time Signature Blood Culture CERNER ? Patient Name: MONIQUE MELGAR ?Ordered By: JANENE GARCIA MILLENNIUM ? MR#: [id number] ?LOC: ??3WST ? /Sex: ??1975 (38 years), [...] - BLOOD ORDERAB LES Performing Organization Address City/[facility]/ZIP Code Phon e Number [address] [facility] Blue Tube HOLD (01/28/2014 7:05 PM EDT) athologist Signature Blue Hold Sample in [facility] Specimen Anatomical Collection Method Collection Time Receive d Time (Source) Location / / Volume Laterality Blood specimen 01/28/2014 7:05 PM 014 7:20 (specimen) EDT PM EDT Janene Garcia MD HEMATOLOGY ORDERABLES Performing Organization Address City/[facility]/ZIP [place] [address] [facility] Antibody screen (01/28/2014 7:05 PM EDT) Analysis Performed At [facility] Time Signature Ab Screen Negative [facility] Ex[facility] at [id number] [facility] 2359 on: [facility] Specimen Anatomical Collection Method Collection Time Receive d Time (Source) Location / / Volume Laterality Blood specimen 01/28/2014 7:05 PM 014 7:20 (specimen) EDT PM EDT Resulting Agency Comment Spec In Lab Janene Garcia MD BLOOD BANK ORDERABLES Performing Organization Address City/[facility]/ZIP [place] [address] [facility] ABO/Rh Typing (01/28/2014 7:05 PM EDT) P athologist Signature ABORh Type O Pos CERNER MILLENNIUM Specimen Anatomical Collection Method Collection Time Receive d Time (Source) Location / / Volume Laterality Blood specimen 01/28/2014 7:05 PM 014 7:20 (specimen) EDT PM EDT Resulting Agency Comment Spec In Lab Janene Garcia MD BLOOD BANK ORDERABLES Performing Organization Address City/State/[place] [address] CERNER MILLENNIUM (ABNORMAL) Differential, [...] Garcia MD HEMATOLOGY ORDERABLES Performing Organization Address City/[facility]/ZIP [place] [address] CERNER MILLENNIUM (ABNORMAL) Hemogram [...] Garcia MD HEMATOLOGY ORDERABLES Performing Organization Address City/[facility]/[place] [address] CERNER MILLENNIUM Blood culture (01/28/2014 7:05 PM EDT) Patholo gist Method Time Signature Blood Culture CERNER ? Patient Name: MONIQUE MELGAR ?Ordered By: JANENE GARCIA ? MR#: [id number] ?LOC: ??3WST ? /Sex: ??1975 (38 years), [...] Organization Address City/State/ZIP Code Phon e [place] [facility] [place] [address] MICHELLE ESCALANTE CK (01/28/2014 7:05 PM EDT) P athologist Signature CK, Total 29 0 - 160 CERNER unit/L MILLENNIUM Specimen Anatomical Collection Method Collection Time Receive d Time (Source) Location / / Volume Laterality Blood specimen 01/28/2014 7:05 PM 014 7:20 (specimen) EDT PM EDT Resulting Agency Comment Spec In Lab Janene Garcia MD CHEMISTRY ORDERABLES Performing Organization Address City/[facility]/ZIP Code Phon e Number [address] CERNER MILLENNIUM (ABNORMAL) Hepatic Function Panel (01/28/2014 7:05 PM EDT) P athologist Signature Total Protein 7.7 6.4 - [...] Garcia MD CHEMISTRY ORDERABLES Performing Organization Address City/[facility]/Z[place] [address] CERNER MILLENNIUM Glucose, random (01/28/2014 7:05 PM EDT) P athologist Signature Glucose Lvl 125 60 - 199 CERNER mg/dL MILLENNIUM Comment: Diabetes: >=200 mg/dL plus symp toms Specimen Anatomical Collection Method Collection Time Receive d Time (Source) Location / / Volume Laterality Blood specimen 01/28/2014 7:05 PM 014 7:20 (specimen) EDT PM EDT Resulting Agency Comment Spec In Lab Janene Garcia MD CHEMISTRY ORDERABLES Performing Organization Address City/State/[place] [address] CERNER MILLENNIUM Creatinine (01/28/2014 7:05 PM EDT) athologist Signature Creatinine 0.87 0.70 - 1.20 CERNER mg/dL MILLENNIUM Comment: Please note that the pediatric reference intervals supplied above were not validated at [facility]. Results from pediatri c patients should be [...] Garcia MD CHEMISTRY ORDERABLES Performing Organization Address [facility]/ZIP Code Phon e Number [address] CERNER MILLENNIUM BUN (01/28/2014 7:05 PM EDT) athologist Signature BUN 17 8 - 18 CERNER mg/dL MILLENNIUM Specimen Anatomical Collection Method Collection Time Receive d Time (Source) Location / / Volume Laterality Blood specimen 01/28/2014 7:05 PM 014 7:20 (specimen) EDT PM EDT Resulting Agency Comment Spec In Lab Janene Garcia MD CHEMISTRY ORDERABLES Performing Organization Address [facility]/ZIP [place] [address] CERNER MILLENNIUM Electrolytes panel (01/28/2014 7:05 PM EDT) athologist Signature Sodium 137 135 - 145 [...] Organization Address City/State/ZIP Code Phon e Number [address] CERNER MILLENNIUM (ABNORMAL) Lactate, whole blood, send to lab (01/28/2014 6:54 PM EDT) athologist Signature Lactate WB 4.0 0.5 - [...] Organization Address City/State/[place] [address] CERNER MILLENNIUM documented in this encounter Visit Diagnoses Not on filedocumented in this encounter Active and Recently Administered Medications Times are shown in EDT. Scheduled Medication Order 02/01/2014 02/02/2014 02/03/2014 acetaminophen (TYLENOL) tablet 1,000 mg (CANCELED) 171 7 (Given - Provider: Luci Al RN)2113 (Given - Provider: Jose Joyner, MICHELLE) 0822 (Given - Provider: Luci Al RN)1317 (Given - Provider: Luci Al RN)172 (Given - Provider: Luci Al RN)211 (Given - Provider: Denisa Centeno, MICHELLE) 0832 (Given - Provider: Luci caldwell RN)1244 [...] Patient/family refused)1453 (Given - Provider: Gabe Sanchez RN)211 (Given - Provider: Jose Joyner, MICHELLE) 0628 (Given - Provider: Jose Joyner, MICHELLE)1317 (Given - Provider: Luci Al RN)211 (Given - Provider: Denisa Centeno, MICHELLE) 0630 (Given - Provider: Denisa Centeno RN) 5,000 Units, Subcutaneous, EVERY 8 HOURS SCHEDULED, First dose on Sat01/29/14 at 0600, Until Discontinued, Routine methylPREDNISolone (MEDROL) tablet 12 mg (CANCELED) 14 55 (Given - Provider: Gabe Sanchez RN) 0822 (Given - Provider: Luci Al, MICHELLE) 0832 (Given - Provider: Luci Al, MICHELLE) 12 mg, Oral, DAILY, First dose on [...] 0858 (Give n - Provider: Gabe Sanchez RN)211 (Given - Provider: Jose Joyner, MICHELLE) 0900 (Not Given - Provider: Luci Al RN - Reason: See comment - Comment: IV infusing)2118 (Given - Provider: Denisa Centeno RN) 0833 (Given - Provider: Luci Al, MICHELLE) 5 mL, Intravenous, 2 TIMES DAILY, First dose on Sat01/29/14 at 0900, Until Discontinued, Recovery (Recovery-Hospital Unit), Routine Continuous Medication Order 02/01/2014 02/02/2014 02/03/2014 dextrose 5% and sodium chloride 0.45% wi th potassium chloride 20 mEq infusion (CANCELED) 010 (New Bag - Provider: Jose nolan RN)2156 (New Bag - Provider: Jose Joyner, MICHELLE) 172 (Stopped - Provider: Luci Al, MICHELLE) 50 mL/hr, at 50 mL/hr, Intravenous, CONT INUOUS, Starting Sat01/30/14 at 0845, Until Sat02/02/14 at 1356 PRN Medication Order 02/01/2014 02/02/2014 02/03/2014 ondansetron (ZOFRAN) injection 4 mg (CANCELED) 0659 (G iven - Provider: Jose Joyner, MICHELLE) 4 mg, Intravenous, EVERY 8 HOURS PRN, St arting Sat01/29/14 at 0438, Until Sat02/03/14 at 1531, Nausea, Routine oxyCODONE (ROXICODONE) immediate release tablet 5-10 mg (CAN CELED) 1507 (Given - Provider: Luci Al, MICHELLE)1904 (Given - Provider: Luci Al, MICHELLE)2235 (Given - Provider: Denisa Centeno, MICHELLE) 5-10 mg, Oral, EVERY 4 HOURS PRN, Starti ng Sat02/02/14 at 1357, Until Sat02/03/14 at 0207, Pain, Routine oxyCODONE (ROXICODONE) immediate release tablet 5-15 mg 0217 (Given - Provider: Denisa Centeno RN)0631 (Given - Provider: Denisa Centeno, MICHELLE)1005 (Given - Provider: Luci Al, MICHELLE)1244 (Given - Provider: Luci Al, MICHELLE) 5-15 mg, Oral, EVERY 3 HOURS PRN, Starti ng Sat02/03/14 at 0215, Until Sat02/03/14 at 1531, Pain, Routine prochlorperazine (COMPAZINE) injection 5 mg (CANCELED) 0637 (Given - Provider: Jose Joyner, MICHELLE) 5 mg, Intravenous, EVERY 30 MIN PRN, 2 d oses, Starting Sat01/29/14 at 0125, Until Sat02/01/14 at 0637, Nausea, May repeat in 30 minutes if no relief from previous dose. HOLD if patient is sedated. Maxim um dose is 40 mg in 24 hours., Recovery (Recovery-Hospital Unit) , Routine promethazine (PHENERGAN) injection 6.25 mg (CANCELED) 0910 (Given - Provider: Gabe Sanchez RN) 6.25 mg, Intravenous, EVERY 6 HOURS PRN, Starting Sat02/01/14 at 0853, Until 02/03/14 at 1531, Nausea, Avoid extravasation, Routine documented in this encounter Care Teams Residential Leasing Manager Relationship Specialty Start Date End Date Fadia Bautista MD PCP - General 12/04/13 10/30/[address] [place] [address] documented as of this encounter
--- OUTSIDE RECORDS SUMMARY | 2022-08-04 16:27 | XMS_ITS | Encounter Summary ---
:1975 Author Organization [facility] [place] [address] Care Team Providers Name Role Phone Derrick Quesada DO Primary Care Provider Encounter Details Date Type Department Care Team Description 03/31/2012 Orders Only Rheumatology at [facility] Rebeca Valerio, [facility] [place] [address] [facility] [phone] RHEUMATOLOGY [place], [place] [address] (Wo rk) Social History Tobacco [...] on filedocumented in this encounter Care Teams Boxing Promoter Relationship Specialty Start Date End Date Derrick Quesada DO PCP - General 08/01/10 07/03/[address] [place], [place] [address] documented as of this encounter
--- OUTSIDE RECORDS SUMMARY | 2022-08-04 16:27 | XMS_ITS | Encounter Summary ---
:1975 Author Organization [place] [address] Care Team Providers Name Role Phone Derrick Quesada DO Primary Care Provider Encounter Details Date Type Department Care Team Description 07/20/2011 Hospital Encounter Laboratory Wesly Manzanares MD [facility] OBSTETRICS & [place] [address] AMA ([facility] Luci Del Valle MD [facility] OBSTETRICS & [place] [address] maternal age) [address] multigravida 35+ [place] [id number] Social History Tobacco Use Types Packs/Day Years Used Date Smoking Tobacco: Never Assessed Alcohol Use Standard Drinks/Week Comments No 0 (1 standard drink = 0.6 oz pure alcoho l) Sex Assigned at Date Recorded Not on file documented as of this encounter Medications at Time of Discharge Medication Sig Dispensed Refills Start Date End Date sertraline (ZOLOFT) 50 mg Take 100 mg by 0 10/31/2015 tablet mouth daily. vitamin 27 & Take 1 tablet by 0 06/20/2012 [id number] 60 mg mouth daily. iron-1 mg tablet CIS Free Text Med - Tri 0 11/01/2006 1 10/26/2010 Erica predniSONE (DELTASONE) 10 Taper/Titrate, PO 0 08/31/2011 mg tablet methotrexate 10 mg tablet 7.5MG = 3 0 11/01/2006 06/20/2012 Tablet(s), PO, QWEEK folic acid (FOLVITE) 1 mg 1MG = 1 Tablet(s), 0 01/14/2012 tablet PO, Twice daily etanercept (ENBREL) 50 50MG/1ML, SQ, QWEEK 0 10/1110/30/2011 mg/mL (0.98 mL) injection clonAZEpam (KLONOPIN) 1 mg 0 7 07/19/2014 tablet documented as of this encounter Plan of Treatment Not on filedocumented as of this encounter Procedures Procedure Name Priority Date/Time Associated Diagnosis Comme nts CF CARRIER Routine 07/20/2011 12:20 PM AMA (advanced materna l Results for this EST age) multigravida 35+ proced ure are in the results section. CF REPORT Routine 07/20/2011 12:11 PM Results for this EST procedure are i n the results section. documented in this encounter Results CF Carrier (07/20/2011 12:20 PM EST) P athologist Signature CF Carrier Complete [facility] Specimen Anatomical Collection Method Collection Time Receive d Time (Source) Location / / Volume Laterality Blood specimen 07/20/2011 12:20 1 2:38 (specimen) PM EST PM EST Luci Del Valle MD HEMATOLOGY ORDERABLES Performing Organization Address City/State/[place] [address] [facility] CF REPORT (07/20/2011 12:11 PM EST) Component Value Ref Test Analysis Performed At [facility] gist Range Method Time Signature Cystic CERNER Fibrosis ? Patient Name: AARON MELGAR ?Ordered By: LUCI DEL VALLE [facility] Report ? MR#: [id number] ?LOC: ??5L ? /Sex: ??1975 (36 years), ? Female ?Gen etics ? [id number] ? Final Report ?Accession Number: [id number] ? Cystic Fibrosis Mutation Analysis ? INDICATION FOR STUDY: Carrier testing; no family hist ory. ? Ethnicity: ? ANALYSIS: ??Examinati on of DNA extracted from peripheral blood leukocytes ? for 41 mutations in [facility] Cystic Fibrosis transmembrane conductance regulator ? (CFTR) gene. ? Results: Negative for the 41 mutations tested. ? Interpretation: It is our understanding that this individual has a negative ? personal and family h istory for cystic fibrosis (CF). Using the CFTR InPlex ? assay, this individua l is negative for the 41 mutations tested, including ? the 23 mutations recommended for screening by [facility] [employer]. The se results do not rule out the possibility that this ? individual could be a carrier of a mutation not detected by this test. This ? interpretation is based on the clinical information provided and the ? current understanding of this disease. While DNA testing is very accurate, ? rare diagnostic error s due to various pre- and post-analytical variables do ? occur. ? Comments: A negative test result significantly redu jennie, but does not ? eliminate, the risk o f being a carrier or having a child with CF. See table ? below. ? Ethnic Group ?--*1-- ?--2*- - ? Ashkenazi Anabaptist ?10/07 to ?95% ? 10/07 to ?90% ? to ?67% ? Moroccan ?? to ?76% ? Moroccan ? to ?61% ? * 1 = Carrier risk reduction with no family history, 2 = Detection Rate ? Methods: Genomic DNA was extracted from t he submitted peripheral blood ? specimen using the [employer] BioRobot. The DNA was enzymatically digested ? Patient: AARON MELGAR ? MR#: [id number] ? and analyzed for muta tion status by using signal amplification probes to ? test for the presence of the following mutations/polymorphisms to the CFTR ? gene using the CFTR I nPlex assay.([employer], [place], [place]):1717-1G>A, 1898+1G>A, ? 2184delA, 2789+5G>A, 3120+1G>A, 3659delC, 3849+10kbC>T, 621+1G>T, 711+1G>T, ? A455E, G542X, G551D, G85E, Y0867V, X5141X , R117H, R334W, R347P, R553X, ? R560T, S2180P, delta F508, deltaI 507, 1078delT, 2183delAA>G, 3849+4A>G, ? 3876delA, 3905insT,394delTT, H9952E, D127 0N, E60X, Q493X, R347H,S549N, ? S549RA>C, S549RT>G, V520F, A0838HB>A, W6742JG>G, and Y122X. ? Reflex testing: I148T, F508C, IVS8-5T, IVS8-7T, IVS8- 9T. ? This test was developed and its p erformance determined by the Molecular ? Pathology Laboratory at the [facility] [place] It has not been cleared or approved by ? the U.S. Food and Drug Administration. This jessica t is used for clinical ? purposes and should n ot be considered as investigational or for research ? purposes. The [facility] Pathology Laboratory is certified by the Clinical ? Laboratory Improvemen t Act of 1987 and as such is allowed to perform high ? complexity clinical testing. ? References: ? 1. ACOG/ACMG. Preconception and valentin r screening for cystic ? fibrosis. 2001, pp.1-31. ? 2. Faith GREGORIO et al., Genetics in Medicine 2002;4:37 9-391. ? Reviewed by: ?? Charisse Jasmine MD ? Manager Investigations, Molecular Patholog y Specimen (Source) Anatomical Collection Method Collection Time Re ceived Time Location / / Volume Laterality 07/20/2011 12:11 PM EST Luci Del Valle MD HEMATOLOGY ORDERABLES Performing Organization Address City/State/[place] [address] HOSPITAL LABORATORY [facility] documented in this encounter Visit Diagnoses Diagnosis AMA (advanced maternal age) multigravida 35+ Elderly multigravida with antepartum con dition or complication documented in this encounter Care Teams Mechanical Systems Control Engineer Relationship Specialty Start Date End Date Derrick Quesada DO PCP - General 08/01/10 07/03/[address] [place] [address] documented as of this encounter
--- OUTSIDE RECORDS SUMMARY | 2022-08-04 16:27 | XMS_ITS | Encounter Summary ---
:1975 Author Organization [facility] Address [address] [place] [address] Care Team Providers Name Role Phone Derrick Quesada DO Primary Care Provider Encounter Details Date Type Department Care Team Description 08/09/2011 Orders Only Obstetrics and Dominga Graham AMA (adv anced maternal Gynecology at [facility] [place] age) multigravida 35+ [facility] (Pr imary Dx) Drive [place], [place] OBSTETRICS & [id number] GYNECOLOGY [phone] [place], [place] [address] Social History Tobacco Use Types Packs/Day Years Used Date Smoking Tobacco: Never Assessed Alcohol Use Standard Drinks/Week Comments No 0 (1 standard drink = 0.6 oz pure alcoho l) Sex Assigned at Date Recorded Not on file documented as of this encounter Plan of Treatment Not on filedocumented as of this encounter Visit Diagnoses Diagnosis AMA (advanced maternal age) multigravida 35+ - Primary Elderly multigravida with antepartum con dition or complication documented in this encounter Care Teams Carrier Operator Relationship Specialty Start Date End Date Derrick Quesada DO PCP - General 08/01/10 07/03/[address] [place], [place] [address] documented as of this encounter
--- OUTSIDE RECORDS SUMMARY | 2022-08-04 16:27 | XMS_ITS | Encounter Summary ---
:1975 Author Organization [facility] [address] Care Team Providers Name Role Phone Derrick Quesada DO Primary Care Provider Encounter Details Date Type Department Care Team Description 08/15/2011 [facility] [place] [address] Social History Tobacco Use Types Packs/Day [...] & Take 1 tablet by 0 06/20/2012 [id number] 60 mg mouth daily. iron-1 mg tablet [...] Name Priority Date/Time Associated Comments Diagnosis US OB DETAILED Routine 08/15/2011 3:01 PM Results for this MORPHOLOGY EST procedure are i n the results section. documented in this encounter Results US OB TARGETED MORPHOLOGY (08/15/2011 3:01 PM EST) Anatomical Region Laterality Modality Pelvis, Abdomen Ultrasound Specimen (Source) Anatomical Collection Method Collection Time Re ceived Time Location / / Volume Laterality 08/15/2011 3:01 PM EST Narrative 08/15/2011 3:46 PM EST ?OBSTETRICS REPOR T ? (Signed Final 08/15/2011 03 :45 pm) Patient Info ID: ? [id number] ? : ??[birth year] (36 yrs) Name: ? AARON Ag MELGAR ?Visit Date: 08/15/2011 02:48 pm Performed By Performed By: ?? Kirsty Mayo [facility] Attending: ?Glenna DOSS, E ??Re manav Referred By: ?Nydia LARA MD Accession#: ? [id number] OB History : ??5 Living: ? 2 ? BMI: ?? 40.05 Service(s) Provided [facility] - Targeted Morphology - Genetics - ? [id number] Indications Morphology scan Advanced maternal age Evaluation Num Of Fetuses: ?1 Heart Rate: ??150 ?bpm Cardiac Activity: ??Observed, normal rh ythm Presentation: ?Breech Placenta: ?Anterior P. Cord ?Within Normal Limits Insertion: Amniotic Fluid SHAYY FV: ?Within normal limits -------- Biometry -------- BPD: ?37.2 ??mm ?G. Age: ?? 17w 3d OFD: ?49.7 ??mm HC: ?139.8 ??mm ?G. Age: ?? 17w 2d AC: ?130.9 ??mm ?G. Age: ?? 18w 4d FL: ? 22.9 ??mm ?G. Age: ?? 16w 6d HUM: ?21.7 ??mm ?G. Age: ?? 16w 4d CER: ?15.5 ??mm ?G. Age: ?? 15w 4d CI: ?74.8 ??% ? 70 - 86 FL/HC: ? 16.4 ??% ? 13.3 - 16.5 HC/AC: ? 1.07 ?1.05 - 1.39 FL/BPD: ?61.6 ??% FL/AC: ? 17.5 ??% ? - Est. FW: ? 207 ?? gm ? 0 lb 7 o z Gestational Age LMP: ? 16w 0d ?Date : ??04/25/11 ? ISIDRO: ?? 01/30/12 U/S Today: ? 17w 4d ?ISIDRO: ?? 01/19/12 Best: ?16w 0d ?? Det. By: ??LMP ??(04/25/11) ?ISIDRO: ?? 01/30/12 Targeted Anatomy Central Nervous System Calvarium: ?Within Norm al Limits Intracranial: ? Within Normal Limits Lat. Ventricles: ?Within Normal Limits Cerebellum: ? Within Shilpa l Limits Choroid Plexus: ? Within Normal Limits Cisterna Magna: ? Within Normal Limits Spine Cervical: ? Visualized Thoracic: ? Visualized Lumbar: ? Visualized Sacral: ? Visualized Head/Neck Face: ? Within No rmal Limits Lips: ? Limited V isualization Nuchal Fold: ?Within Shilpa l Limits Thorax Four Chamber: ? Within Normal Limits Cardiac Motion: ? Normal Rhythm R Outflow Tract: ?Visualized L Outflow Tract: ?Visualized Cardiac [place]: ? Visualized Diaphragm: ?Visualized Abdomen Ventral Wall: ? Visualized Stomach: ?Visualized Lt Kidney: ?Visualized Rt Kidney: ?Visualized Bladder: ?Visualized Extremities Lt Humerus: ? Visualized Rt Humerus: ? Visualized Lt Forearm: ? Visualized Rt Forearm: ? Visualized Lt Hand: ?Limited Vi ews Rt Hand: ?Limited Vi ews Lt Femur: ? Visualized Rt Femur: ? Visualized Lt Lower Leg: ? Visualized Rt Lower Leg: ? Visualized Lt Foot: ?Visualized Rt Foot: ?Visualized Other Umbilical Cord: ? 3 vessel cord Cord Insertion: ? WIthin Normal Limits Comment: ? Nasal Bone: Visualize d Cervix Uterus Adnexa Left Ovary: ?Not visualized Right Ovary: ?? Not visualized Impression 2nd Trimester - Targeted Morphology- Lee mmary Single intrauterine with a ge stational age of 16w 0d based on LMP. Composite age base d on the current ultrasound alone is 17w 4d. Cur rent growth parameters are consistent indicating no rmal growth. Amniotic fluid volume is within normal limits. Detailed anatomic evaluation was performed . ??Visualization is limited of the upper lip and hands d ue to gestational age and maternal body habitus. I ??view ed the images and agree with the above interpretation . Thank you for allowing us to participat e in the care of AARON MELGAR. Please do not hesitat e to call if you have any questions. ?Nita patterson MD Electronically Signed Final Report ?? 03:45 pm Procedure Note Nita Manzanares MD - 08/15/2011For matting of this note might be different from the original. OBSTETRICS REPORT (Signed Final 08/15/2011 03:45 pm) Patient Info ID: [id number] : [birth year] (36 yrs ) Name: AARON MELGAR Visit Date: 03/2011 02:48 pm Performed By Performed By: Kirsty Mayo [facility] Attending: Nita Manzanares MD Referred By: Nydia LARA MD OB History : 5 Livin BMI: 40.05 Service(s) Provided [facility] - Targeted Morphology - Genetics - [id number] Indications Morphology scan Advanced maternal age Evaluation Num Of Fetuses: 1 Heart Rate: 150 bpm Cardiac Activity: Observed, normal rhyt hm Presentation: Breech Placenta: Anterior P. Cord Within Normal Limits Insertion: Amniotic Fluid SHAYY FV: Within normal limits -------- Biometry -------- BPD: 37.2 mm G. Age: 17w 3d OFD: 49.7 mm HC: 139.8 mm G. Age: 17w 2d AC: 130.9 mm G. Age: 18w 4d FL: 22.9 mm G. Age: 16w 6d HUM: 21.7 mm G. Age: 16w 4d CER: 15.5 mm G. Age: 15w 4d CI: 74.8 % 70 - 86 FL/HC: 16.4 % 13.3 - 16.5 HC/AC: 1.07 1.05 - 1.39 FL/BPD: 61.6 % FL/AC: 17.5 % 20 - 24 Est. FW: 207 gm 0 lb 7 oz Gestational Age LMP: 16w 0d Date: 04/25/11 ISIDRO: 2 U/S Today: 17w 4d ISIDRO: 01/19/12 Best: 16w 0d Det. By: LMP (04/25/11) ED Targeted Anatomy Central Nervous System Calvarium: Within Normal Limits Intracranial: Within Normal Limits Lat. Ventricles: Within Normal Limits Cerebellum: Within Normal Limits Choroid Plexus: Within Normal Limits Cisterna Magna: Within Normal Limits Spine Cervical: Visualized Thoracic: Visualized Lumbar: Visualized Sacral: Visualized Head/Neck Face: Within Normal Limits Lips: Limited Visualization Nuchal Fold: Within Normal Limits Thorax Four Chamber: Within Normal Limits Cardiac Motion: Normal Rhythm R Outflow Tract: Visualized L Outflow Tract: Visualized Cardiac [place]: Visualized Diaphragm: Visualized Abdomen Ventral Wall: Visualized Stomach: Visualized Lt Kidney: Visualized Rt Kidney: Visualized Bladder: Visualized Extremities Lt Humerus: Visualized Rt Humerus: Visualized Lt Forearm: Visualized Rt Forearm: Visualized Lt Hand: Limited Views Rt Hand: Limited Views Lt Femur: Visualized Rt Femur: Visualized Lt Lower Leg: Visualized Rt Lower Leg: Visualized Lt Foot: Visualized Rt Foot: Visualized Other Umbilical Cord: 3 vessel cord Cord Insertion: WIthin Normal Limits Comment: Nasal Bone: Visualized Cervix Uterus Adnexa Left Ovary: Not visualized Right Ovary: Not visualized Impression 2nd Trimester - Targeted Morphology- Lee mmary Single intrauterine with a ge stational age of 16w 0d based on LMP. Composite age base d on the current ultrasound alone is 17w 4d. Cur rent growth parameters are consistent indicating no rmal growth. Amniotic fluid volume is within normal limits. Detailed anatomic evaluation was performed . Visualization is limited of the upper lip and hands d ue to gestational age and maternal body habitus. I viewed the images and agree with the above interpretation . Thank you for allowing us to participat e in the care of AARON MELGAR. Please do not hesitat e to call if you have any questions. Nita Manzanares MD Electronically Signed Final Report 08/15 03:45 pm Beni Espinal MD IMG US OB ORDERABLES documented in this encounter Visit Diagnoses Not on filedocumented in this encounter Care Teams Human Resources Records Clerk Relationship Specialty Start Date End Date Derrick Quesada DO PCP - General 08/01/10 07/03/[address] [place] [address] documented as of this encounter
--- OUTSIDE RECORDS SUMMARY | 2022-08-04 16:27 | XMS_ITS | Encounter Summary ---
:1975 Author Organization [facility] [place] [address] Care Team Providers Name Role Phone DipakDerrick Primary Care Provider Reason for Visit Reason Onset Date Comments Questions 09/28/2011 Encounter Details Date Type Department Care Team Description 09/28/2011 Telephone Rheumatology at [facility] Rebeca Valerio, Questions [facility] [place] [address] [facility] [phone] RHEUMATOLOGY DEP [place], [place] [address] (Wo rk) Social History Tobacco Use Types Packs/Day Years Used Date Smoking Tobacco: Never Alcohol Use Standard Drinks/Week Comments No 0 (1 standard drink = 0.6 oz pure alcoho l) Sex Assigned at Date Recorded Not on file documented as of this encounter Miscellaneous Notes Telephone Encounter - Rebeca Valerio DO - 09/28/2011 7:48 PM EST Spoke with the patient. She did well with 40 mg and then 30 mg of prednisone but when she dropped to20 mg her joints flared again - hands and shoulders as well as knees. Ended up in her local ED with sharp chest pain when she takes a deep breath and wa told he had bursitis in her shoulder. Increased her prednisone back to 30 mg 2 days ago and wondering what to do. I told her to continue 30 mg daily x 1 week, then try 25 mg x 1 week, then 20 mg. If she tolerates that, then he can decrease by 2.5 mg every 1-2 weeks until down to 10 mg. We discussed the fact that really no other drugs except plaquenil would be safe in . Discussed getting her back on mtx, plaquenil and enbrel as soon as possible after her . Will need to discuss with Kylie Mcconnell the timing of that. I am assuming he would like to see her incision healing before we start her back on anything. I am doubtful she will beable to taper off prednisone completely before delivery, but I would like to see her down to the lowest dose possible to keep her symptoms relatively controlled. documented in this encounter Plan of Treatment Not on filedocumented as of this encounter Visit Diagnoses Not on filedocumented in this encounter Care Teams Mitigation Supervisor Relationship Specialty Start Date End Date Derrick Quesada DO PCP - General 08/01/10 07/03/[address] [place] [address] documented as of this encounter
--- OUTSIDE RECORDS SUMMARY | 2022-08-04 16:27 | XMS_ITS | Encounter Summary ---
:1975 Author Organization [place] [address] Care Team Providers Name Role Phone DipakDerrick cottrell Primary Care Provider Reason for Visit Reason Onset Date Comments Questions 10/25/2011 Encounter Details Date Type Department Care Team Description 10/25/2011 Telephone Rheumatology at [facility] Rebeca Valerio, Questions [facility] [place] [address] [facility] [phone] RHEUMATOLOGY DEP [place], [place] [address] (Wo rk) Social History Tobacco Use Types Packs/Day Years Used Date Smoking Tobacco: Never Alcohol Use Standard Drinks/Week Comments No 0 (1 standard drink = 0.6 oz pure alcoho l) Sex Assigned at Date Recorded Not on file documented as of this encounter Miscellaneous Notes Telephone Encounter - Rebeca Valerio, - 10/25/2011 9:19 AM EST Message copied by REBECA VALERIO on SatOct 25, 2011 9:19 AM ------ Message from: MATT CHINCHILLA Created: SatOct 24, 2011 9:47 AM Regarding: PRED TAPER Having a lot of pain issues Requesting a call back [phone] I spoke with the patient. When she dropped down from 25 mg to 20 mg her arms started to hurt - everyjoint. Having a hard time sleeping b/c of shoulder pain. I told her to go back up to 25 mg prednisone. I will see her next Saturday to inject both shoulders. She is at 31 weeks gestation and i will research whether I can restart her enbrel at this point. documented in this encounter Plan of Treatment Not on filedocumented as of this encounter Visit Diagnoses Not on filedocumented in this encounter Care Teams Test Carrier Relationship Specialty Start Date End Date Derrick Quesada DO PCP - General 08/01/10 07/03/[address] [place] [address] documented as of this encounter
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
--- OUTSIDE RECORDS SUMMARY | 2022-08-04 16:27 | XMS_ITS | Encounter Summary ---
:1975 Author Organization [facility] [place] [address] Care Team Providers Name Role Phone Derrick Quesada DO Primary Care Provider Reason for Visit Reason Comments Care post transport from [facility] Encounter Details Date Type Department Care Team Description 12/08/2011 - Hospital Encounter Birthing JILLIAN Black (advanced 12/11/2011 Dora Orantes MD maternal age) [facility] multigravida 35+ [facility] [address] OBSTETRICS & [place], [place] GYNECOLOGY [id number] [place], [place] [phone] [facility] Social History Tobacco Use Types Packs/Day Years Used Date Smoking Tobacco: Former Cigarettes Tobacco Cessation: Counseling Given: No Comments: quit 2 years ago Alcohol Use Standard Drinks/Week Comments No 0 (1 standard drink = 0.6 oz pure alcoho l) Sex Assigned at Date Recorded Not on file documented as of this encounter Last Filed Vital Signs Vital Sign Reading Time Taken Comments Blood Pressure 115/67 12/11/2011 7:49 AM EDT Pulse 93 12/11/2011 7:49 AM EDT Temperature 37 ??C (98.6 ??F) 12/11/2011 7:49 AM EDT Respiratory Rate 18 12/11/2011 7:49 AM EDT Oxygen Saturation 99% 12/11/2011 5:26 AM EDT Inhaled Oxygen Concentration - - Weight 102.1 kg (225 lb) 12/08/2011 3:00 PM EDT Height 154.9 cm (5' 1) 12/08/2011 3:00 PM EDT 5 ft 1 i n Body Mass Index 42.51 12/08/2011 3:00 PM EDT documented in this encounter Discharge Instructions Discharge InstructionsEva Petersen RN - 12/11/2011 9:44 AM EDT Nursing Inpatient Progress C - Section Follow-up Maternal Discharge Instructions Rest: Although it may seem impossible to get enough rest, simple planning will help. Try to get at least one four hour block of uninterrupted sleep in 24 hours; then plan to rest, and/or sleep when your baby does. Limiting visitors also helps. Fathers and other family members can help by doing housework, caring for other children and/or helping limit visitors. Activity: After delivery, it is safe to climb stairs at home. Do not lift anything heavier than your baby for two weeks. Do not drive for two weeks or while taking pain medicine that contains a narcotic as your reaction time may be decreased. Nutrition: Your diet following the of your baby is as important as it was before the baby was born. Drink a minimum of 6-8 glasses a day. Do not attempt to lose weight during the first six weeks.Continue taking your vitamins until they are gone. Lochia: (Flow) Your flow should be no heavier than a normal period. It will be bright red for 2-3 days and then pinkish and finally colorless. If your flow becomes bright red again, decrease your activity. Do not use tampons until your care provider advises you it is OK. Incision: Wash the incision with soap and water and pat dry. It is normal to have clear or pinkish fluid seep from the incision. Gauze pads or sanitary napkins may help to keep the incision dry if it is located in a fold under your tummy. If the incision has more redness, yellow drainage, or becomes more painful, contact the obstetrics clinic. Breast Care for Formula feeding mothers: Wear a well fitting bra to support your breasts. Ice packs to your breasts and Tylenol or Ibuprofen may be used to relieve discomfort from engorgement. Avoid stimulating your breasts: Do not let warm water from the shower fall on them; avoid holding your baby near your breasts until your milk begins to decrease and engorgement is relieved. Breast feeding mothers: Practice careful positioning and frequent feeding as demonstrated in the hospital. The printed information in your packet covers this in detail. Call your doctor or case loader operator for: Fever more than 100.5 Heavy bleeding that saturates a pad an hour Clots larger than a plum Increased abdominal pain, nausea, shaking chills Increased redness or soreness over your incision Breast with hot, hard, tender areas on the breast plus flu-like symptom depression occurs in a large percentage of women. We encourage you to contact your provider or a member of the nursing staff if you are feeling so overwhelmed that you are unable to care for yourself or your baby. Keep your follow up appointment. You may call the [facility] at any time for guidance or for answers to questions that come up prior to you follow up appointment. Your [facility] Provider can be reached during office hours at [facility] Follow-up Clinic AFTER OFFICE HOURS for the cable weaver or case loader operator education administrative assistant Provider electronic signature confirms that discharge instructions were reviewed with the patient. Acopy was printed and given to the patient. Patient InstructionsAshley Caldera MD - 12/11/2011 11:43 AM EDT C - Section Follow-up Maternal Discharge Instructions Rest: Although it may seem impossible to get enough rest, simple planning will help. Try to get at least one four hour block of uninterrupted sleep in 24 hours; then plan to rest, and/or sleep when your baby does. Limiting visitors also helps. Fathers and other family members can help by doing housework, caring for other children and/or helping limit visitors. Activity: After delivery, it is safe to climb stairs at home. Do not lift anything heavier than your baby for two weeks. Do not drive for two weeks or while taking pain medicine that contains a narcotic as your reaction time may be decreased. Nutrition: Your diet following the of your baby is as important as it was before the baby was born. Drink a minimum of 6-8 glasses a day. Do not attempt to lose weight during the first six weeks.Continue taking your vitamins until they are gone. Lochia: (Flow) Your flow should be no heavier than a normal period. It will be bright red for 2-3 days and then pinkish and finally colorless. If your flow becomes bright red again, decrease your activity. Do not use tampons until your care provider advises you it is OK. Incision: Wash the incision with soap and water and pat dry. It is normal to have clear or pinkish fluid seep from the incision. Gauze pads or sanitary napkins may help to keep the incision dry if it is located in a fold under your tummy. If the incision has more redness, yellow drainage, or becomes more painful, contact the obstetrics clinic. Breast Care for Formula feeding mothers: Wear a well fitting bra to support your breasts. Ice packs to your breasts and Tylenol or Ibuprofen may be used to relieve discomfort from engorgement. Avoid stimulating your breasts: Do not let warm water from the shower fall on them; avoid holding your baby near your breasts until your milk begins to decrease and engorgement is relieved. Breast feeding mothers: Practice careful positioning and frequent feeding as demonstrated in the hospital. The printed information in your packet covers this in detail. Call your doctor or case loader operator for: Fever more than 100.5 Heavy bleeding that saturates a pad an hour Clots larger than a plum Increased abdominal pain, nausea, shaking chills Increased redness or soreness over your incision Breast with hot, hard, tender areas on the breast plus flu-like symptom depression occurs in a large percentage of women. We encourage you to contact your provider or a member of the nursing staff if you are feeling so overwhelmed that you are unable to care for yourself or your baby. Keep your follow up appointment. You may call the [facility] at any time for guidance or for answers to questions that come up prior to you follow up appointment. Your [facility] Provider can be reached during office hours at [facility] Follow-up Clinic AFTER OFFICE HOURS for the cable weaver or case loader operator education administrative assistant Provider electronic signature confirms that discharge instructions were reviewed with the patient. Acopy was printed and given to the patient. documented in this encounter Medications at Time of Discharge Medication Sig Dispensed Refills Start Date End Date docusate sodium Take 1 capsule by mouth 30 capsule 1 012 12/21/2011 (COLACE) 100 mg 2 times daily for 10 capsule days. cephALEXin (KEFLEX) Take 1 capsule by mouth 28 capsule 0 11/201112/18/2011 500 mg capsule 4 times daily for 7 days. ibuprofen Take 1 tablet by mouth 90 tablet 1 12/11/2011 (ADVIL;MOTRIN) 600 mg every 6 hours. tablet OXYcodone-acetaminoph Take 1-2 tablets by 40 tablet 0 12/1006/20/2012 en (PERCOCET) 5-325 mouth every 4 hours as mg per tablet needed for Pain. etanercept (ENBREL) Inject 1 mL 12 each 3 10/30/201101/07 50 mg/mL (0.98 mL) subcutaneously every 7 injectionIndications: days. Indications: rheumatoid arthritis Rheumatoid Arthritis predniSONE Take by mouth. As 100 tablet 3 08/31/2011 012 (DELTASONE) 10 mg directed tablet sertraline (ZOLOFT) Take 100 mg by mouth 0 10/31/2015 50 mg tablet daily. vitamin 27 & Take 1 tablet by mouth 0 06/20/2012 [id number] 60 mg daily. iron-1 mg tablet methotrexate 10 mg 7.5MG = 3 Tablet(s), 0 007 06/20/2012 tablet PO, QWEEK folic acid (FOLVITE) 1MG = 1 Tablet(s), PO, 0 01/14/2012 1 mg tablet Twice daily clonAZEpam (KLONOPIN) 0 11/01/200606/2014 1 mg tablet documented as of this encounter Progress Notes Ruddy Rosaels RN - 12/11/2011 10:53 AM EDT Pt refuses TDAP at this time Ashley Caldera MD - 12/11/2011 7:12 AM EDT Delivery Note Patient ID: Monique Zamora is a 36 y.o. woman who is POD#3 after an emergency repeat delivery and BTL in [place] for large abruption, PPROM, and transfusion of 1 unit of PRBCs at the time of section. transport to [facility] due to issues. The was also complicated by previous section, obesity, AMA and rheumatoid arthritis. Subjective: Ms. Zamora is feeling well this morning, with abdominal pain well controlled by po medication. She complains of occasional back spasms when ambulating which percocet does not seem to help. Reports some edema to abdomen, which she had after her prior delivery as well. She is voiding adequate urine, tolerating a regular diet and passing flatus. She is . General ROS: Review of Systems Abdomen: moderate pain, well controlled by percocet Back: occasional spasms in lower back, resolving without medication Lochia: minimal Physical Exam: Last Set of Vitals and range of vital over past 24 hours: BP 142/62 Pulse 96 Temp(Src) 37 ??C (98.6 ??F) (Oral) Resp 18 Ht 154.9 cm (5' 1) Wt 102.059 kg (225 lb) BMI 42.51 kg/m2 SpO2 99% LMP 04/25/2011 Physical Exam Gen: well appearing, sleepy, laying in bed in NAD CV: Regular rate and rhythm, no murmurs, rubs or gallops. Pulm: breath sounds heard in all manzo, clear to auscultation bilaterally. Abd: soft, obese, non-distended, non-tender to palpation, bowel sounds present, Pfannenstiel incision, well approximated with sutures, moist aron-pad removed from below pannus is moist with clear fluid, some edema noted to abdomen above incision, non-tender. Ext: 1+ PE to BL LE Significant Labs: None to report Relevant Immunizations: Immunization History Administered Date(s) Administered ??? Influenza Split 06/08/2011 ??? Influenza Whole 08/16/2006 ??? PPD Test 10/09/2006 ??? Pneumococcal Polyvalent 23 08/16/2006 Assessment: Monique Zamora is a 36 y.o. woman who is POD#3 after an emergency repeat delivery in [place] for large abruption, PPROM, and transfusion of 1 unit of PRBCs at the time of section. transport to [facility] due to issues. The was also complicated by previous section, obesity, AMA and rheumatoid arthritis. hemoglobin stable. Well controlled pain, will see how she does without medication for her back spasms this morning. Plan: - continue routine care - RA: continue home meds, received embril (weekly), prednisone 15mg q d - with no complications - contraception: bilateral tubal ligation - anticipate dc today - desires visit with Dr. Espinal , will call to schedule. This patient was seen and discussed on rounds. ASHLEY CALDERA MD 12/11/2011 Stephan Khan RN - 12/11/2011 5:23 AM EDT Called to room, pt appears to have shaking chills and breathing very fast. States started when she go up to BR. Room very cold. VSS. O2sat wnl. Pt instructed on breathing and easily calmed with shakes stopping. Report to [facility]. Shari Ashby RN - 12/11/2011 3:07 AM EDT Pt c/o sharp pain in her back when she took a deep breath. Points to left lower side. LCTA and no SOB. VSS. Gave hot pack and incentive spirometer to use while awake. Eva Choudhury RN - 12/10/2011 2:07 PM EDT Care Management Assessment Patient Information has been reviewed in multi-disciplinary rounds with OB and pediatric providers, in medical record, and through patient interview. Introduced self and CRC role to patient and services accepted. Living Situation: Monique is a 36 y.o. delivered at 33 1/7 wk gestation via C/Section with BTL at [facility] following a placental abruption with bleeding. Her was complicated by: Rheumatoid arthritis, anxiety, depression, fibromyalgia With Whom: Abdiel and their 2 older children ages 10 and 7. Where: [place], [place] Approx time in community: Years Social Resources: Intact couple with third child. Both employed. 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 They have [employer] insurance. [place] of [place]. Patient's mother and with her presently. Extended family in area for support: YES Cognitive Resources: Intact Childbirth Education: Yes/No Educational level: College Functional Status: Ambulatory, Independent, Without limitations. C/S recovery with limitations on lifting/driving x 2 weeks. Complications requiring follow-up: Financial Resources: Adequate Health Insurance Coverage: [employer] Physics Professor Chosen: Trinidad Angeles MD Baby's Name: Undecided at this time Anticipated Continuing Care Needs: Physical: Recovery from . Initiation of . Emotional: Adjustment to period Psychological: Hx of anxiety/depression. At risk for PPD. Referred to social sciences professor for assessment and support while inpatient. Seen by Janki RAMIREZ this afternoon. Educational: Parenting Continuing Care Plan Development: At home resources/Discharge supports suggested. Printed materials and suggested community resources provided to patient: Visiting Nurse visits: Offered services of [facility]NA post discharge. Patient accepted for upon discharge [facility] (n/a) 4th Trimester New mom support/[facility] (n/a) [facility]: [facility] DME ordered : None Breast Pump: Formula Feeding Other: Have car seat, own transportation, and adequate family support. No direct referrals made at this time. Seen by BELL NECK HAMMERER. Pt given information on [facility], boarding on , and parking of motor home on the grounds ( requested information). Discussed possibilities of return transport of infant to [place] (patient and asking about this). Discussed needing [employer] approval for return transport and for hospitalization coverage back at [place]. Referredto Jerod Vicente for this discussion. . CRC: Lauryn Choudhury RNC/ [place] [place]. Beeper [id number] Tarah Carr - 12/10/2011 2:00 PM EDT Hide Mill Worker Encounter Note Patient Name: Monique Zamora : [id number] MR#: [id number] Admit Date: 12/08/2011 1:05 PM Hospital Day 3 days Narrative: Initial visit with pt, as well as MGM and a family friend. Assessment: Visited with pt while she visited and held baby in the ICN. Mom reflected on baby's early arrival and how well he is doing in the ICN. Mom reflected briefly about her spirituality. She appreciated offer of a blessing for the baby. Intervention and Outcome: Intro to bank courier services. Spiritual assessment. Spiritual and emotional support, through situation review. Gathered with mom, MGM, and family friend around baby and said a blessing for him and for mom/family. Mom tearful and offered her appreciation for the prayer and support. Follow-up: [employer] Worker will offer follow-up visit for spiritual and emotional support of pt/family. Time in Direct Care: 10 minutes TARAH CARR 12/11/2011 Ashley Caldera MD - 12/10/2011 6:13 AM EDT Delivery Note Patient ID: Monique Zamora is a 36 y.o. woman who is POD#2 after an emergency repeat delivery and BTL in [place] for large abruption, PPROM, and transfusion of 1 unit of PRBCs at the time of section. transport to [facility] due to issues. The was also complicated by previous section, obesity, AMA and rheumatoid arthritis. Subjective: Ms. Zamora is feeling well this morning, still sleepy from 0200 Ambien. She denies pain.She is ambulating, voiding urine, tolerating a regular diet and passing flatus. Was started on her RA medications, Embril and prednisone 15mgqd. General ROS: Review of Systems Abdomen: moderate pain, well controlled by percocet Lochia: minimal Physical Exam: Last Set of Vitals and range of vital over past 24 hours: BP 144/73 Pulse 89 Temp(Src) 37 ??C (98.6 ??F) (Oral) Resp 18 Ht 154.9 cm (5' 1) Wt 102.059 kg (225 lb) BMI 42.51 kg/m2 SpO2 97% LMP 04/25/2011 Physical Exam Gen: well appearing, sleepy, laying in bed in NAD CV: Regular rate and rhythm, no murmurs, rubs or gallops. Pulm: breath sounds heard in all manzo, clear to auscultation bilaterally. Abd: soft, non-distended, non-tender to palpation, bowel sounds present, Pfannenstiel incision dry, well approximated with sutures. Ext: 2+ PE to BL LE Significant Labs: None to report Relevant Immunizations: Immunization History Administered Date(s) Administered ??? Influenza Split 06/08/2011 ??? Influenza Whole 08/16/2006 ??? PPD Test 10/09/2006 ??? Pneumococcal Polyvalent 23 08/16/2006 Assessment: Monique Zamora is a 36 y.o. woman who is POD#2 after an emergency repeat delivery in [place] for large abruption, PPROM, and transfusion of 1 unit of PRBCs at the time of section. transport to [facility] due to issues. The was also complicated by previous section, obesity, AMA and rheumatoid arthritis. hemoglobin stable yesterday. Plan: - continue routine care - RA: continue home meds, received embril (weekly), prednisone 15mg q d - with no complications - contraception: bilateral tubal ligation - anticipate dc on POD#3 This patient was seen and discussed on rounds. ASHLEY CALDERA MD 12/10/2011 Ese March RN - 12/09/2011 9:35 AM EDT Pt stated that she had difficulty falling asleep last pm but after medicated with diladid she received a good 6 hrs of rest and felt better this am Kimberly Benavides MD - 12/09/2011 6:50 AM EDT Delivery Note Delivery Date: 12/08/11 Delivery Type: Low transverse section Subjective: Complains of incision pain overnight, mainly on the left, controlled Toradol and po percocet/oxycodone and requiring 1 dose of IV dilaudid. Pain is now well controlled She is tolerating diet well, urinating and ambulating well. No other complaints. General ROS: Review of Systems Lochia: small Physical Exam: Last Set of Vitals and range of vital over past 24 hours: BP 134/70 Pulse 90 Temp(Src) 36.7 ??C (98.1 ??F) (Oral) Resp 20 Ht 154.9 cm (5' 1) Wt 102.059 kg (225 lb) BMI 42.51 kg/m2 SpO2 94% LMP 04/25/2011 Physical Exam Cardiovascular: Normal rate and regular rhythm. Pulmonary/Chest: Breath sounds normal. Abdominal: Soft. Uterine Fundus: firm Dressing: clean, dry and intact Lochia: appropriate Significant Labs: CBC Lab Results Component Value Date WBC 12.1* 12/09/2011 Hemoglobin 10.1* 12/09/2011 Hematocrit 29.7* 12/09/2011 Platelets 125* 12/09/2011 Recent Labs Basename 07/09/11 ??? ABORH O+* No components found with this basename: RUBELLA:* Relevant Immunizations: Immunization History Administered Date(s) Administered ??? Influenza Split 06/08/2011 ??? Influenza Whole 08/16/2006 ??? PPD Test 10/09/2006 ??? Pneumococcal Polyvalent 23 08/16/2006 Assessment: 36 y.o. female, POD#1, who underwent repeat delivery in [place] yesterday morning, complicated by large abruption, PPROM, and transfusion of 1 unit of PRBCs at the time of section. transport to [facility] due to issues. The was also complicated by previous section, obesity, AMA and rheumatoid arthritis. Hemoglobin is stable. Patient is doing well without problems, afebrile and having normal elimination. nutrition: breast Contraception: bilateral tubal ligation Plan: Continue routine care: ?? encourage ambulation ?? d/c IV when taking adequate PO ?? change dressing PPD # 2 ?? routine bowel orders ?? anticipated discharge PPD # 3 Additional Plans: consultation and 2 week visit for depression Rheumatoid arthritis Patient received her weekly Enbrel yesterday Continue steroid taper Rheumatology consult (Dr Valerio) tomorrow. Anxiety - Continue prn Klonopin Depression - Continue Zoloft This patient was seen and discussed on rounds. PETRA TRAN MD 12/09/2011 Addendum: Pt was not in room when Dr Rosario went to see her x 2. I have seen and examined this pt, and discussed exam, assessment and plan with Dr Tran; I agree with his note above. In summary, pt is POD1 from repeat C/S for large placental abruption and is doing well. Ambulating, voiding, joi PO well, adequate analgesia. Some dependent edema, abd NT and dressing clean. BTL for contraception, Likely discharge on POD 3. Continues current meds for RA, depression and anxiety. Consult with her usual plant control aide tomorrow. Kimberly Benavides MD Ese March RN - 12/08/2011 1:36 PM EDT Pt to BP 8 window via stretcher from [facility] for post transport, in ICN. Pttransfer from stretcher and ambulated to , lim cath D/C'd and pt instructed on aron care, Dr. Ogden into evaluate patient, pt to wheelchair and to ICN to visit with infant, will continue to assess, pt stated pain relief with morphine given on transfer and now pain down to 3/10 documented in this encounter H&P Notes Mel Ogden MD - 12/08/2011 2:19 PM EDT Obstetrical Transport Admission Note Referring Hospital: [facility] Provider: Dr Espinal HPI: Monique Zamora is a 36 y.o. year old female with an ISIDRO of 01/30/2012, admitted POD#0 at 34weeks gestation being admitted as post- transport s/p repeat section and salpingectomy (for sterilization) secondary to abruption and PPROM. She presented to [facility] with a history of spontaneous rupture of membranes with a large amount of fresh vaginal bleeding in the early hours of this morning. Diagnosis of abruption was made and emergent repeat delivery was performed. EBL was 700ml and the patient was transfused 1 unit of PRBCs at the time of surgery due to lowpre-op Hgb and concern for large amount of blood loss. Post-op Hgb at [place] at 0900 today was 10.8 g/dL Since the surgery she has felt well. Her was transported to here due to prematurity and post- transport for Monique was then arranged. This was an unplanned . She discontinued all of her Rheumatoid arthritis at the beginning of the but was restarted on her Enbrel, as well as a steroid taper around 4 weeks ago and her joint pain has been much improved in the past 7 days. General ROS Review of Systems All other systems reviewed and are negative. Active Problems There are no hospital problems to display for this patient. Active Non-Hospital Problems Diagnoses ??? Obesity ??? AMA (advanced maternal age) multigravida 35+ ??? Rheumatoid arthritis ??? Anxiety ??? Depression Past Medical History Past Medical History Diagnosis Date ??? Rheumatoid arthritis ??? Depression ??? Anxiety Past Surgical History Past Surgical History Procedure Date ??? section 2000 ??? section 2003 ??? section 2011 OB History OB History Grav Para Term Abortions TAB SAB Ect Mult Living 5 2 2 2 1 1 # Outc Date GA Lbr Adryan/2nd Wgt Sex Del Anes PTL Lv 1 TAB 1987 2 SAB 1990 3 TRM 01/07 3.969kg([id number]) M LTCS 4 TRM 10/13 3.799kg(8lb6oz) F LTCS 5 CUR Prior to Admission Medications Prescriptions prior to admission Medication Sig Dispense Refill ??? etanercept (ENBREL) 50 mg/mL (0.98 mL) injection Inject 1 mL subcutaneously every 7 days. Indications: Rheumatoid Arthritis 12 each 3 ??? predniSONE (DELTASONE) 10 mg tablet Take by mouth. As directed 100 tablet 3 ??? sertraline (ZOLOFT) 50 mg tablet Take 50 mg by mouth daily. ? ? vitamin 27 & [id number]-KP 60 mg iron-1 mg tablet Take 1 tablet by mouth daily. ??? OXYcodone (ROXICODONE) 15 mg immediate release tablet 15MG = 1 Tablet(s), PO, Three times daily ??? methotrexate 10 mg tablet 7.5MG = 3 Tablet(s), PO, QWEEK ??? folic acid (FOLVITE) 1 mg tablet 1MG = 1 Tablet(s), PO, Twice daily ??? lansoprazole (PREVACID) 30 mg capsule ??? clonAZEpam (KLONOPIN) 1 mg tablet ??? zolpidem (AMBIEN) 10 mg tablet Allergies Allergies Allergen Reactions ??? Sulfa (Sulfonamide Antibiotics) CIS - Anaphylaxis Family History Family History Problem Relation Age of Onset ??? Chronic Obstructive Pulmonary Disease Mother Social History Social History Occupational History ??? Not on file. Social History Main Topics ??? Smoking status: Former Smoker Types: Cigarettes ??? Smokeless tobacco: Not on file Comment: quit 2 years ago ??? Alcohol Use: No ??? Drug Use: No ??? Sexually Active: Yes -- Male partner(s) Relevant Immunizations Immunization History Administered Date(s) Administered ??? Influenza Whole 08/16/2006 ??? PPD Test 10/09/2006 ??? Pneumococcal Polyvalent 23 08/16/2006 Last Set of Vitals: BP 154/73 Pulse 92 Temp(Src) 36.9 ??C (98.4 ??F) (Oral) Resp 18 SpO2 98% LMP 04/25/2011 Physical Exam Constitutional: She is oriented to person, place, and time. No distress. Cardiovascular: Normal rate and regular rhythm. No murmur heard. Pulmonary/Chest: Effort normal and breath sounds normal. Abdominal: Soft. Bowel sounds are normal. Dressing c/d/i Neurological: She is alert and oriented to person, place, and time. Skin: Skin is warm and dry. Psychiatric: She has a normal mood and affect. Uterine Size: Appropriate Lab Review Recent Labs Basename 12/08/11 0915 10/19/11 07/09/11 ??? ABORH -- -- O+* ??? HEPBDNAQUANT -- -- -- ??? HCT 31.4* -- 37.7* ??? HGB 10.8* -- 12.7* ??? MCV -- -- 83.5* ??? RUBLIGG -- -- -- ??? URINECULTURE -- -- -- ??? HIV12 -- -- neg* ??? TSH -- -- -- ??? GCAMP -- -- -- ??? CHLMGENE -- -- -- ??? GLUCFASTING -- -- -- ??? FXFM1DP -- 107* -- ??? HA1C -- -- -- ??? [id number] -- -- -- ??? [id number] -- -- -- ??? AST -- -- -- ??? ALT -- -- -- ??? URICACID -- -- -- AFP - Screen negative CF - Negative for tested mutations Assessment 36 y.o. year old female with [facility] 01[facility]30/2012, [facility]p repeat section with tubal ligation for abruption and PPROM. ?? GBS: Unknown ABORh Type Date Value Range Status 07/09/2011 O+* - (no units) Final HIV 1/2 Ab Date Value Range Status 07/09/2011 neg* - (no units) Final ?? Additional medical and obstetrical issues: No record of GC/Chlamydia testing Plan: Admit for care Continue Toradol (2 further doses) followed by po Ibuprofen with po Percocet and breakthrough Oxycodone for pain Additional issues: ?? Contraception: s/p tubal ligation ?? H/o Depression - Continue Zoloft 100mg ?? Will need 2 week follow up screening visit. ?? Rheumatoid arthritis - Continue Enbrel as per patient's previous regimen (50mg weekly on Saturdays) and Prednisone taper (15mg daily currently) ?? Contact Rehumatology (Dr Valerio) on Saturday PETRA TRAN MD 12/08/2011 I saw and evaluated the patient with Dr. Tran. I have reviewed the resident's history and confirmedit with the pateint and I agree with the details as written. My physical examination confirms Chelsea's findings. The assessment and plan were formulated in discussion with me and I agree with them as documented. Monique Zamora is s/p c/s #3 and BLT today at the OSH for placental abruption at 34 weeks. Maternal transport due to requiring ICN admission. She was given 1 unit PRBC for a low pre-operative hemoglobin though we do not have those in transfer records. Post-operative hemoglobin is 10.8. Monique feels rather well. She is ambulating already and has just had her lim removed. She denies lightheadedness or dizziness. Her lochia is moderate. 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 documented in this encounter Miscellaneous Notes Discharge Summary - Vijay Jiménez - 12/12/2011 7:50 PM EDT Patient Name: Monique Zamora Patient Age: 36 y.o. Date of : 1975 Admit date: 12/08/2011 Discharge date and time: 12/11/2011 Attending Physician: Luci Rosario MD Discharge Summary Antepartum Referring Hospital: [facility] Provider: Dr Espinal Discharge Diagnoses: 1) care s/p transport at 34 weeks in setting of rpt and tubal ligation (indication abruption and PPROM). Patient Active Problem List Diagnoses ??? Obesity ??? AMA (advanced maternal age) multigravida 35+ ??? Rheumatoid arthritis ??? Anxiety ??? Depression Admission History (per admit note cut and paste): From Admission H&P: Monique Zamora is a 36 y.o. year old female with an ISIDRO of 01/30/2012, admitted POD#0 at 34 weeks gestation being admitted as post- transport s/p repeat section and salpingectomy (for sterilization) secondary to abruption and PPROM. [facility] with a history of spontaneous rupture of membranes with a large amount of fresh vaginal bleeding in the early hours of this morning. Diagnosis of abruption was made and emergent repeat delivery was performed. EBL was 700ml and the patient was transfused 1 unit of PRBCs at the time of surgery due to low pre-op Hgb and concern forlarge amount of blood loss. Post-op Hgb at [place] at 0900 today was 10.8 g/dL. Since the surgery she has felt well. Her infant was transported to here due to prematurity and post- transport for Monique was then arranged. This was an unplanned . She discontinued all of her Rheumatoid arthritis at the beginning of the but was restarted on her Enbrel, as well as a steroid taper around 4 weeks ago and her joint pain has been much improved in the past 7 days. Hospital Course: Ms. Zamora was admitted for her care. She was continued on her RA meds embril (weekly) and prednisone 15mg q d. She opted to not breastfeed due to desire to restart methotrexate . By PPD#2, she was ambulating and urinating without difficulty. Her incision remainedclean, dry, and intact. She was passing flatus. She was discharged home on PPD#3 in stable condition. Of note, she was given a 7 day course of Keflex due to breast discomfort and erythema, possible cellulitis. The patient opted for follow up with Dr. Espinal. Pertinent Labs: Random PP glucose: 107 Lab Results Component Value Date WBC 12.1* 12/09/2011 RBC 3.54* 12/09/2011 HGB 10.1* 12/09/2011 HCT 29.7* 12/09/2011 MCV 83.9 12/09/2011 MCH 28.5 12/09/2011 MCHC 34.0 12/09/2011 PLATELET 125* 12/09/2011 RDWCV 15.1* 12/09/2011 Allergies: Allergies Allergen Reactions ??? Sulfa (Sulfonamide Antibiotics) CIS - Anaphylaxis Med Rec report: Discharge Medication List as of 12/11/11 09:45 AM Continued medications, unchanged Details etanercept (ENBREL) 50 mg/mL (0.98 mL) injection Inject 1 mL subcutaneously every 7 days. Indications: Rheumatoid Arthritis, Subcutaneous, EVERY 7 DAYS Starting 10/30/2011, Until Discontinued, Disp-12 each, R-3, Normal predniSONE (DELTASONE) 10 mg tablet Take by mouth. As directed, Oral, Disp-100 tablet, R-3, Normal sertraline (ZOLOFT) 50 mg tablet Take 50 mg by mouth daily., Oral, DAILY, Until Discontinued, Historical Med vitamin 27 & [id number] 60 mg iron-1 mg tablet Take 1 tablet by mouth daily., Oral, DAILY, Until Discontinued, Historical Med folic acid (FOLVITE) 1 mg tablet 1MG = 1 Tablet(s), PO, Twice daily, Oral clonAZEpam (KLONOPIN) 1 mg tablet Oral methotrexate 10 mg tablet 7.5MG = 3 Tablet(s), PO, QWEEK, Oral Ordered for After Discharge: Follow-up Order Comments: - gestational diabetic counseling with line fixer at the time of the visit if there is a diagnosis of gestational diabetes. OB History: OB History Grav Para Term Abortions TAB SAB Ect Mult Living 5 2 2 2 1 1 Medical History: Past Medical History Diagnosis Date ??? Rheumatoid arthritis ??? Depression ??? Anxiety ??? Fibromyalgia Surgical History: Past Surgical History Procedure Date ??? section 2000 ??? section 2003 ??? section 2011 Family History: Family History Problem Relation Age of Onset ??? Chronic Obstructive Pulmonary Disease Mother Social History: History Social History ??? Marital Status: Spouse Name: N/A Number of Children: N/A ??? Years of Education: N/A Occupational History ??? Not on file. Social History Main Topics ??? Smoking status: Former Smoker Types: Cigarettes ??? Smokeless tobacco: Not on file Comment: quit 2 years ago ??? Alcohol Use: No ??? Drug Use: No ??? Sexually Active: Yes -- Male partner(s) Other Topics Concern ??? Not on file Social History Narrative ??? No narrative on file F/U (including additional evaluations): Patient desires visit with Dr. Espinal , will call to schedule. Future Appointments and Orders Future Orders Please Complete By Expires Follow-up [[id number] Custom] Process Instructions: Scheduling Instructions: Comments: - gestational diabetic counseling with line fixer at the time of the visit if there is a diagnosis of gestational diabetes. Questions: Responses: Glucose 1 Hour Post Prandial [[id number] Custom] Process Instructions: Scheduling Instructions: Comments: This order was created through External Result Entry Questions: Responses: Should this service/procedure be billed to the research sponsor? Hematocrit [[id number] Custom] Process Instructions: Scheduling Instructions: Comments: This order was created through External Result Entry Questions: Responses: Should this service/procedure be billed to the research sponsor? Hemoglobin [[id number] Custom] Process Instructions: Scheduling Instructions: Comments: This order was created through External Result Entry Questions: Responses: Should this service/procedure be billed to the research sponsor? Initial External Lab Panel [[id number] Custom] Process Instructions: Scheduling Instructions: Comments: This order was created through External Result Entry Questions: Responses: Should this service/procedure be billed to the research sponsor? VIJAY JIMÉNEZ MD 12/12/2011 Miscellaneous - Provider, Miguel - 12/09/2011 3:23 PM EDT Plan of Care - Ese March RN - 12/08/2011 5:41 PM EDT Problem: Following Section Delivery (Adult, Obstetric) Goal: Prevent/Manage Potential Problems Based on my scope of practice, I assessed for signs and symptoms of potential problems that could bepresent as documented. Outcome: Absent and monitoring Pt c/o of some abd cramping and gas pains, pt medicated with tordol as ordered, pt up ambulating to ICN pushing whellchair and family at side, pt teaching reinforced r/t breast care for non nursing mother, pt joi reg diet and voiding qs , will continue to assess documented in this encounter Plan of Treatment Not on filedocumented as of this encounter Procedures Procedure Name Priority Date/Time Associated Comments Diagnosis DIFFERENTIAL, Routine 12/09/2011 6:15 AM Results for this AUTOMATED EDT procedure are i n the results section. CBC (WITH DIFF) Routine 12/09/2011 6:15 AM Result s for this EDT procedure are i n the results section. HEMOGLOBIN Routine 12/08/2011 9:15 AM Results f or this EDT procedure are i n the results section. HEMATOCRIT Routine 12/08/2011 9:15 AM Results f or this EDT procedure are i n the results section. GLUCOSE 1 HOUR POST Routine 10/19/2011 Results for this PRANDIAL procedure are i n the results section. INITIAL Routine 07/09/2011 Results for this EXTERNAL RESULTS procedure a re in PANEL the results section. documented in this encounter Results (ABNORMAL) DIFFERENTIAL, AUTOMATED (12/09/2011 6:15 AM EDT) [facility] gist Method Time Signature Neutrophils % 67.2 34.0 - CERNER 71.0 % MILLENNIUM Neutr Abs (ANC) 8.16 (H) 1.50 - CERNER 6.30 MILLENNIUM x10(3)/mc L Lymphocytes % 23.6 19.0 - CERNER 53.0 % MILLENNIUM Lymphocytes Abs 2.9 1.0 - 3.6 CERNER x10(3)/mc MILLENNIUM L Monocytes % 8.0 4.0 - CERNER 13.0 % MILLENNIUM Monocyte Abs 1.0 0.2 - 1.0 CERNER x10(3)/mc MILLENNIUM L Eosinophils % 0.7 0.0 - 7.0 CERNER % MILLENNIUM Eosinophils Abs 0.1 0.0 - 0.5 CERNER x10(3)/mc MILLENNIUM L Basophils % 0.1 0.0 - 2.0 CERNER % MILLENNIUM Basophils Abs 0.0 0.0 - 0.2 CERNER x10(3)/mc MILLENNIUM L Immature Gran % 0.40 0.00 - CERNER 0.66 % MILLENNIUM Comment: [...] Location / / Volume Laterality Blood specimen 12/09/2011 6:15 AM 012 6:29 (specimen) EDT AM EDT Luci Rosario MD HEMATOLOGY ORDERABLES Performing Organization Address City/State/[place] [address] CERNER MILLENNIUM (ABNORMAL) CBC (with Diff) (12/09/2011 6:15 AM EDT) P athologist Signature WBC 12.1 (H) 4.0 - 10.0 CERNER x10(3)/mcL MILLENNIUM RBC 3.54 (L) 3.93 - CERNER 5.22 MILLENNIUM x10(6)/mcL Hemoglobin 10.1 (L) 11.2 - CERNER 15.7 gm/dL MILLENNIUM Hematocrit 29.7 (L) 34.0 - CERNER 45.0 % MILLENNIUM MCV 83.9 79.0 - CERNER 94.0 fL MILLENNIUM MCH 28.5 26.6 - CERNER 32.2 pg MILLENNIUM MCHC 34.0 32.0 - CERNER 36.5 gm/dL MILLENNIUM Platelets 125 (L) 145 - 370 CERNER x10(3)/mcL MILLENNIUM RDWSD 46.0 35.0 - CERNER 46.0 fL MILLENNIUM RDWCV 15.1 (H) 10.9 - C[facility] 14.4 % [facility] MPV 9.9 9.0 - 12.0 [facility] MILLENNIUM Specimen Anatomical Collection Method Collection Time Receive d Time (Source) Location / / Volume Laterality Blood specimen 12/09/2011 6:15 AM 012 6:29 (specimen) EDT AM EDT Resulting Agency Comment Spec In Lab Luci Rosario MD HEMATOLOGY ORDERABLES Performing Organization Address City/State/[place] [address] [facility] (ABNORMAL) Hemoglobin (12/08/2011 9:15 AM EDT) athologist Signature Hemoglobin 10.8 12.0 - (External 16.0 Lab) Specimen (Source) Anatomical Collection Method Collection Time Re ceived Time Location / / Volume Laterality Blood specimen 12/08/2011 9:15 AM (specimen) EDT Beni Espinal MD HEMATOLOGY ORDERABLES (ABNORMAL) Hematocrit (12/08/2011 9:15 AM EDT) athologist Signature Hematocrit 31.4 36.0 - EXTERNAL LAB (External 46.0 Lab) Specimen (Source) Anatomical Collection Method Collection Time Re ceived Time Location / / Volume Laterality Blood specimen 12/08/2011 9:15 AM (specimen) EDT Beni Espinal MD HEMATOLOGY ORDERABLES Performing Organization Address City/State/ZIP Code Phon e Number EXTERNAL FACILITY EXTERNAL LAB (ABNORMAL) Glucose 1 Hour Post Prandial (10/19/2011) Analysis Performed At Patho logist Time Signature Glucose, 1Hr 107 PP (External Lab) Specimen (Source) Anatomical Location Collection Method / Collectio n Time Received Time / Laterality Volume Blood specimen (specimen) Beni Espinal MD CHEMISTRY ORDERABLES (ABNORMAL) Initial External Lab Panel (07/09/2011) Patholo gist Method Time Signature ABORh Type O+ (External Lab) Ab Screen Interp Negative (External Lab) Hematocrit 37.7 36.0 - (External 46.0 Lab) Hemoglobin 12.7 12.0 - (External 16.0 Lab) MCV 83.5 82.0 - (External 108.0 Lab) Platelets Rubella IgG Syphilis IgG Negative (External Lab) HepB Surface Ag Negative (External Lab) HIV 1/2 Ab neg (External Lab) TSH Hemoglobin A1C Cystic Fibrosis neg Report (External Lab) U24 Prot Calc Creat Clearance Creatinine 0.5 - 1.1 AST 13 - 35 ALT 7 - 35 Uric Acid Urine Culture GC Gene Amp Chlamydia Gene Amp Cytopathology Final Report Narrative This result has an attachment that is no t available. Beni Espinal MD POINT OF CARE TEST ORDERABLE S documented in this encounter Visit Diagnoses Diagnosis AMA (advanced maternal age) multigravida 35+ Elderly multigravida with antepartum con dition or complication documented in this encounter Administered Medications Inactive Administered Medications - up to 3 most recent administrations Medication Order MAR Action Action Date Dose Rate Site clonAZEpam (KLONOPIN) tablet 0.5 Given 12/11/2011 8:00 AM EDT 0. 5 mg mg 0.5 mg, Oral, 2 TIMES DAILY PRN, Starting on Sat12/08/11 at 1542, Until Sat12/11/11 at 2231, Anxiety, Routine Given 12/10/2011 9:00 PM EDT 0.5 mg Given 12/09/2011 8:00 AM EDT 0.5 mg docusate sodium (COLACE) capsule 100 mg Given 12/11/2011 8:00 AM EDT 100 mg 100 mg, Oral, 2 TIMES DAILY, First dose on 12/08/11 at 2100, Until Discontinued, Routine Given 12/10/2011 9:00 PM EDT 100 mg Given 12/10/2011 8:14 AM EDT 100 mg etanercept (ENBREL) injection 50 mg Given 12/08/2011 6:00 PM EDT 50 mg 50 mg, Subcutaneous, EVERY 7 DAYS, First dose on 12/08/11 at 1600, Until Discontinued, Routine famotidine (PEPCID) tablet 20 mg Given 12/11/2011 8:00 AM EDT 20 mg 20 mg, Oral, 2 TIMES DAILY, First dose on 12/08/11 at 2100, Until Discontinued, Routine Given 12/10/2011 9:00 PM EDT 20 mg Given 12/10/2011 8:15 AM EDT 20 mg ferrous sulfate EC tablet 325 mg Given 12/11/2011 5:14 PM EDT 325 mg 325 mg, Oral, 2 TIMES DAILY WITH MEALS, First dose on 12/08/11 at 1700, Until Discontinued, Take with food or a glass of water, Routine HYDROmorphone (DILAUDID) 2 mg/mL injecti on 1 dose, Starting on 12/09/11 at 0111, Until Sun at 0115, [employer]: Cabinet Override HYDROmorphone (DILAUDID) injection 0.5 m g Given 12/09/2011 1:15 AM EDT 0.5 mg 0.5 mg, Intravenous, ONCE, 1 dose, On 12/09/11 at 0130, Routine ibuprofen (ADVIL;MOTRIN) tablet 600 mg Given 12/11/2011 5:15 PM EDT 600 mg 600 mg, Oral, EVERY 6 HOURS, First dose on 12/09/11 at 0600, Until Discontinued, Maximum dose of 3200 mg from all sources in 24 hours, Routine Given 12/11/2011 10:43 AM EDT 600 mg Given 12/11/2011 5:00 AM EDT 600 mg ketorolac (TORADOL) injection 15 mg Given 12/09/2011 12:00 AM EDT 15 mg 15 mg, Intravenous, EVERY 6 HOURS SCHEDULED, 2 doses, First dose on 12/08/11 at 1800, Last dose on Sat12/09/11 at 0000, Routine Given 12/08/2011 5:20 PM EDT 15 mg OXYcodone (ROXICODONE) 5 mg immediate re lease tablet 1 dose, Starting on 12/08/11 at 1548, Until 12/08/11 at 1549, ESE MARCH: Cabinet Override OXYcodone (ROXICODONE) immediate release tablet Given 12/10/2011 9:14 PM EDT 5 mg 5-10 mg 5-10 mg, Oral, EVERY 4 HOURS PRN, Starting on 12/08/11 at 1542, Until Tu12/11/11 at 2231, Pain, Routine Given 12/10/2011 5:30 PM EDT 10 mg Given 12/10/2011 1:32 PM EDT 10 mg OXYcodone-acetaminophen (PERCOCET) 5-325 Given 12/11/2011 6: 33 PM EDT 2 tablets mg per tablet 1-2 tablet 1-2 tablet, Oral, EVERY 4 HOURS PRN, Starting on 12/08/11 at 1540, Until Sat12/11/11 at 2231, Pain, Maximum dose of acetaminophen is 4000 mg from all sources in 24 hours., Routine Given 12/11/2011 2:45 PM EDT 2 tablets Given 12/11/2011 10:41 AM EDT 2 tablets polyethylene glycol (MIRALAX) packet 17 g Given 12/10/2011 9:00 AM EDT 17 g 17 g, Oral, DAILY, First dose on Sat12/09/11 at 2045, Until Discontinued, Routine Given 12/09/2011 8:45 PM EDT 17 g predniSONE (DELTASONE) tablet 15 mg Given 12/11/2011 8:00 AM EDT 15 mg 15 mg, Oral, DAILY, First dose on Sat12/09/11 at 0900, Until Discontinued, Routine Given 12/10/2011 8:15 AM EDT 15 mg Given 12/09/2011 9:00 AM EDT 15 mg vitamin 27 & [id number] 60 mg Given 11/2011 8:00 AM EDT 1 tablet iron-1 mg tablet Tab 1 tablet 1 tablet, Oral, DAILY, First dose on 12/08/11 at 1600, Until Discontinued, Routine Given 12/10/2011 9:00 AM EDT 1 tablet Given 12/09/2011 9:00 AM EDT 1 tablet sertraline (ZOLOFT) tablet 100 mg Given 12/09/2011 9:00 AM EDT 100 mg 100 mg, Oral, DAILY, First dose (after last modification) on 12/08/11 at 1600, Until Discontinued, Routine sertraline (ZOLOFT) tablet 100 mg Given 12/11/2011 8:00 AM EDT 100 mg 100 mg, Oral, 2 TIMES DAILY, First dose (after last modification) on 12/09/11 at 2100, Until Discontinued, Routine Given 12/10/2011 9:00 PM EDT 100 mg Given 12/10/2011 8:15 AM EDT 100 mg zolpidem (AMBIEN) tablet 10 mg Given 12/10/2011 2:07 AM EDT 10 mg 10 mg, Oral, NIGHTLY PRN, Starting on 12/08/11 at 1542, Until Sat12/11/11 at 2231, Sleep, Routine Given 12/08/2011 10:00 PM EDT 10 mg documented in this encounter Active and Recently Administered Medications Times are shown in EDT. Scheduled Medication Order 12/09/2011 12/10/2011 12/11/2011 docusate sodium (COLACE) capsule 100 mg 0900 (Given - Provider: Ese March, MICHELLE)2100 (Given - Provider: Marley Adame, RN) 0814 (Given - Provider: Ruddy Rosales RN)2100 (Given - Provider: Erica Gonzlaez RN) 0800 (Given - Provider: Eva Petersen, MICHELLE) 100 mg, Oral, 2 TIMES DAILY, First dose on 12/08/11 at 2100, Until Discontinued, Routine famotidine (PEPCID) tablet 20 mg (CANCELED) 0900 (Give n - Provider: Ese March RN)2100 (Given - Provider: Marley Adame RN) 0815 (Given - Provider: Ruddy Rosales RN)2100 (Given - Provider: Erica Gonzalez RN) 0800 (Given - Provider: Eva Petersen RN) 20 mg, Oral, 2 TIMES DAILY, First dose o n 12/08/11 at 2100, Until Discontinued, Routine ferrous sulfate EC tablet 325 mg (CANCELED) 0800 (Not Given - Provider: Ese March RN - Reason: Patient/family refused)1700 (Not Given - Provider: Ese March RN - Reason: Patient/family refused) 0800 (Not Given - Provider: Ruddy Rosales RN - Reason: Patient/family refused)1700 (Not Given - Provider: Ruddy Rosales RN - Reason: Patient/family refused) 0800 (Not Given - Provider: Eva Petersen RN - Reason: Patient/family refused)1714 (Given - Provider: Kaylan Calderon RN) 325 mg, Oral, 2 TIMES DAILY WITH MEALS, First dose on 12/08/11 at 1700, Until Discontinued, Take with food or a glass of water, Routine HYDROmorphone (DILAUDID) injection 0.5 mg (COMPLETED) 0115 (Given - Provider: Berta Sales RN) 0.5 mg, Intravenous, ONCE, 1 dose, 12/09/11 at 0130, Routine ibuprofen (ADVIL;MOTRIN) tablet 600 mg 0800 (Given - P rovider: Ese March, MICHELLE)1400 (Given - Provider: Ese March, RN)1999 (Given - Provider: Marley Adame RN) 0200 (Given - Provider: Marley Adame RN)0800 (Given - Provider: Ruddy Rosales, MICHELLE)1530 (Given - Provider: Ruddy Rosales RN - Comment: pt in ICN)2100 (Given - Provider: Erica Gonzalez, MICHELLE) 0500 (Given - Provider: Erica Gonzalez, MICHELLE)1043 (Given - Provider: Ruddy Rosales RN)1400 (Due - Provider: Johnny Allen, PharmD)1715 (Given - Provider: Kaylan Calderon RN)1999 (Due - Provider: Johnny Allen, PharmD) 600 mg, Oral, EVERY 6 HOURS, First dose on 12/09/11 at 0600, Until Discontinued, Maximum dose of 3200 mg from all sources in 24 hours, Routine ketorolac (TORADOL) injection 15 mg (COMPLETED) 0000 ( Given - Provider: Berta Sales RN) 15 mg, Intravenous, EVERY 6 HOURS SCHEDU LED, 2 doses, First dose on 12/08/11 at 1800, Last dose on 12/09/11 at 0000, Routine polyethylene glycol (MIRALAX) packet 17 g (CANCELED) 2 045 (Given - Provider: Marley Adame RN) 0900 (Given - Provider: Ruddy Rosales RN) 0900 ( Not Given - Provider: Eva Petersen RN - Reason: See comment - Comment: Pt had BM yesterday) 17 g, Oral, DAILY, First dose on Sun 12/08 at 2045, Until Discontinued, Routine predniSONE (DELTASONE) tablet 15 mg (CANCELED) 0900 (G iven - Provider: Ese March, MICHELLE) 0815 (Given - Provider: Ruddy Rosales, MICHELLE) 0800 ( Given - Provider: Eva Petersen RN) 15 mg, Oral, DAILY, First dose on 12/09/11 at 0900 vitamin 27 & [id number] 60 mg iron-1 mg tablet Tab 1 tablet (CANCELED) 0900 (Given - Provider: Ese March RN) 0900 (Gi priscilla - Provider: Ruddy Rosales RN) 0800 (Given - Provider: Eva Petersen, MICHELLE) 1 tablet, Oral, DAILY, First dose on 12/08/11 at 1600, Until Discontinued, Routine sertraline (ZOLOFT) tablet 100 mg (CANCELED) 0900 (Giv en - Provider: Ese March RN) 100 mg, Oral, DAILY, First dose on Sat at 1600, Until Discontinued, Routine sertraline (ZOLOFT) tablet 100 mg (CANCELED) 2100 (Giv en - Provider: Marley Adame RN) 0815 (Given - Provider: Ruddy franco RN)2100 (Given - Provider: Erica Gonzalez, MICHELLE) 0800 (Given - Provider: Eva Petersen RN) 100 mg, Oral, 2 TIMES DAILY, First dose on 12/09/11 at 2100, Until Discontinued, Routine PRN Medication Order 12/09/2011 12/10/2011 12/11/2011 clonAZEpam (KLONOPIN) tablet 0.5 mg (CANCELED) 0219 (G iven - Provider: Berta Sales RN)0800 (Given - Provider: Ese March, MICHELLE) 2100 (Given - Provider: Erica Gonzalez, MICHELLE) 0800 (Given - Provider: Eva Petersen, MICHELLE) 0.5 mg, Oral, 2 TIMES DAILY PRN, Startin g 12/08/11 at 1542, Until Tu12/11/11 at 2231, Anxiety, Routine OXYcodone (ROXICODONE) immediate release tablet 5-10 m g (CANCELED) 0002 (Given - Provider: Berta Sales RN)0401 (Given - Provider: Berta Sales, MICHELLE)0800 (Given - Provider: Ese March, MICHELLE)1400 (Given - Provider: Ese March, MICHELLE)1855 (Given - Provider: Ese M Joaquim, RN) 1332 (Given - Provider: Ruddy Rosales RN)1730 (Given - Provider: Ruddy Rosales RN)2114 (Given - Provider: Erica Gonzalez RN) 5-10 mg, Oral, EVERY 4 HOURS PRN, Starti ng Sat 12/08/11 at 1542, Until 12/11/11 at 2231, Pain, Routine 2300 (Given - Provider: Marley Adame, MICHELLE) OXYcodone-acetaminophen (PERCOCET) 5-325 mg per tablet 1-2 tablet 0216 (Given - Provider: Berta Sales RN)0600 (Given - Provider: Berta Sales, MICHELLE)1100 (Given - Provider: Ese March, MICHELLE)1520 (Given - Provider: Ese March, MICHELLE)2000 (Given - Provider: Marley Adame RN) 0007 (Given - Provider: Marley Adame RN)0815 (Given - Provider: Ruddy Rosales RN)1146 (Given - Provider: Ruddy Rosales RN)1530 (Given - Provider: Ruddy Rosales RN)1916 (Given - Provider: Ruddy Rosales RN) 0504 (Given - Provider: Erica Gonzalez RN)1041 (Given - Provider: Kaylan Calderon, MICHELLE)1445 (Given - Provider: Eva Petersen RN)1833 (Given - Provider: Kaylan Calderon, MICHELLE) 1-2 tablet, Oral, EVERY 4 HOURS PRN, Sta rting 12/08/11 at 1540, Until 12/11/11 at 2231, Pain, Maximum dose of acetaminophen is 4000 mg from all sources in 24 hours., Routine 2345 (Given - Provider: Shari moya RN) zolpidem (AMBIEN) tablet 10 mg (CANCELED) 0207 (Given - Provider: Marley Adame RN) 10 mg, Oral, NIGHTLY PRN, Starting Sat at 1542, Until 12/11/11 at 2231, Sleep, Routine documented in this encounter Care Teams Adjunct Faculty Instructor Relationship Specialty Start Date End Date Derrick Quesada DO PCP - General 08/01/10 07/03/[address] [place] [address] documented as of this encounter
--- OUTSIDE RECORDS SUMMARY | 2022-08-04 16:27 | XMS_ITS | Encounter Summary ---
:1975 Author Organization [facility] [place] [address] Care Team Providers Name Role Phone Adrián Reynolds MD Primary Care Provider [phone] Reason for Visit Reason Onset Date Comments Questions 12/29/2013 Encounter Details Date Type Department Care Team Description 12/29/2013 Telephone [place] [facility], Micki [facility] [place] [address] [facility] [phone] RHEUMATOLOGY DEP [place], [place] [address] (Wo rk) Social History Tobacco Use Types Packs/Day Years Used Date Smoking Tobacco: Former Cigarettes Comments: quit 2 years ago Alcohol Use Standard Drinks/Week Comments No 0 (1 standard drink = 0.6 oz pure alcoho l) Sex Assigned at Date Recorded Not on file documented as of this encounter Miscellaneous Notes Telephone Encounter - Rebeca Valerio DO - 12/29/2013 2:18 PM EDT I called and spoke with the patient after receiving the following email: Rebeca, I have spoken with the nurse today and she asked that I send a message to [employer] I did try to do this and went through the motions of setting up the account but it seems that I need an activation code so I am sending this to your email. I have been increasingly ill even after stopping the Leflumonide. I was using suppositories to help with the nausea, Phenadoz 25 MG 1 every 4-6 hours as needed for severe nausea. I have also been dealing with flares/extreme pain in my joints; specifically my right shoulder, both hands, both knees, andboth feet. Also am experiencing pain in my jaw and nasal/ear areas. After having a very painful and sick week and feeling worse on December 25 I called into [facility] and spoke to Sascha (loraine) who stated that there was a bug going around and to call in on Saturday if I did not improve and she would ask a fellow in the office what could be done. December 21, I went into work but was very sick with dizziness and nausea and pain in my joints. I got progressively worse and on Saturday my children started to get a stomach bug so I prepared to work on also having a stomach bug. I called into your office and spoke to Sascha (loraine) and was advised to start the Methylprednisolone taper from the beginning; 12 mg per day for 2 weeks; 8 mg per day fortwo and 4 mg per day for 2 weeks. I also was to take the next weekly dose of Humira on , which I did take. I began to treat for a stomach virus; BRAT diet, plenty of liquids, rest etc. While also handling the extreme RA pain. I had constant diarrhea, nausea with vomiting, cramping with horrible stomach pain. My anus prolapsed. I had a low grade fever hovering at just below 100 degrees so I assumed it was gertrude illness made worse by my sickness with the new medications and the joint pain. On December 24, I was feeling the same but at 10ish am when I had the normal excruciatinglypainful bowel movement with dry heaves that had been happening all week. My stool was filled with blood. So immediately I knew that this had turned serious. I could not drive because of my hands and shoulder pain so had to call the ambulance. Was taken to [facility] was given IV fluids for dehydration or rehydration, a anti-nausea medication through the iv and also the pain killer Deladin (loraine). After blood tests, stool sample (very bloody) and finally a urinalysis. There were high counts of white cells in my urine. The diagnosis used was Dysentery. The doctor also said I could possibly have a bladder infection and the treatment would treat both. I was given Odansetron - for nausea; Cirpoflaxcin - 500 mg twice per day 7 days; I was also given 14 tabs of 5 mg/325 mg codeine/tylenol 1 to 2 tabs every 6 hours for pain. I called into the office today and my call was returned by Sascha. I stated that I was treated at the hospital and the symptoms of the infection were subsiding but I am still experiencing the severe jointpain and am completely wiped out. Sascha stated that I should not take the Humira while I was on the antibiotic and to discontinue until I hear back from you/her. I have 5 more doses of the cipro and willfinish up on . In the meantime I have continued the taper which is currently at 12 mg of Methylprednisolone. As stated earlier, Sascha asked me to communicate this to you. She is also going to look into an earlier appointment with you. I said that I would like to discuss pain medication as I have been in pain and suffering for so long that when I was in the hospital and had the pain medication it was eye opening to how much pain I was experiencing. I have been really using meditation and breathing but it is overwhelming. While at home taking the codeine was not able to relieve me of the pain. I was able to get relief with the delaudin in the hospital. If we can discuss options to provide some relief. 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 It was not conducive to healing and with the increase in pain and sickness I was unable to continue. I have been out of work since the - days thus far. It is not feasible for me to work at a computer for any length of time while I am in this physical condition. I have been meditating and getting lots of rest. Not necessarily sleep but just resting my mind and body. Drinking as much as I can tolerate, since the hospital visit I have been able to take in my normal amounts of liquid. I have also been working on healthy diet focusing on whole foods, fruits and vegetables with minimum amounts of meat primarily chicken. I had really started to be faithful to healthy eating since the beginning of the medication change. I feel so much better when I do not eat processed foods and red meat among other things. That is about it and it is long especially typing with one finger. I am off to sleep now, hopefully.Sleep has been hard as I am not able to get to sleep or I wake up all through the night with pain. Manny hoping to talk to you tomorrow. Monique She is currently on medrol 12 mg daily. Currently having pain in hands, arms, wrists, shoulders, knees, toes. This is the worst her RA has ever been. Was sent home with vicodin which has not helped thepain at all but she only took 1 tablet at a time. Her diarrhea has resolved with cipro and this morning she had a normal bowel movement with no blood.She did have a stool sample sent but does not know the result. I suggested increasing medrol to 24 mg daily and tapering from there. I have called in a 4 day supply of vicodin to her pharmacy and asked her to take 2 at a time. I am seeing her next Saturday and her last cipro is this . If her diarrheal illness is completely gone then she can start humira weekly again. documented in this encounter Plan of Treatment Not on filedocumented as of this encounter Visit Diagnoses Not on filedocumented in this encounter Care Teams Polymer Materials Consultant Relationship Specialty Start Date End Date Adrián Reynolds MD PCP - General 12/04/13 10/30/[address] [place] [address] documented as of this encounter
--- OUTSIDE RECORDS SUMMARY | 2022-08-04 16:27 | XMS_ITS | Encounter Summary ---
:1975 Author Organization [facility] [address] Care Team Providers Name Role Phone Derrick Quesada DO Primary Care Provider Reason for Visit Reason Onset Date Comments Results 08/24/2011 Encounter Details Date Type Department Care Team Description 08/24/2011 Telephone Obstetrics and Gynecology at Dominga Kam MS Results [facility] Ag luke OBSTETRICS & [place] [address] [place] [address] [phone] (Wo rk) Social History Tobacco Use Types Packs/Day Years Used Date Smoking Tobacco: Never Assessed Alcohol Use Standard Drinks/Week Comments No 0 (1 standard drink = 0.6 oz pure alcoho l) Sex Assigned at Date Recorded Not on file documented as of this encounter Miscellaneous Notes Telephone Encounter - Dominga Graham MS - 08/24/2011 2:51 PM EST Monique has been informed of the following results: MS-AFP 1.33 MoM Risk for Neural Tube Defect <1:1500 No further recommendations were made. documented in this encounter Plan of Treatment Not on filedocumented as of this encounter Visit Diagnoses Not on filedocumented in this encounter Care Teams Warehouse Team Leader Relationship Specialty Start Date End Date Derrick Quesada DO PCP - General 08/01/10 07/03/[address] [place] [address] documented as of this encounter
--- OUTSIDE RECORDS SUMMARY | 2022-08-04 16:27 | XMS_ITS | Encounter Summary ---
:1975 Author Organization [place] [address] Care Team Providers Name Role Phone Adrián Reynolds MD Primary Care Provider [phone] Encounter Details Date Type Department Care Team Description 01/21/2014 Orders Only Rheumatology at [facility] [place] Rebeca Valerio, [place] [address] [facility] [phone] RHEUMATOLOGY [place], [place] [address] (Wo rk) Social History Tobacco [...] on filedocumented in this encounter Care Teams Chinese Instructor Relationship Specialty Start Date End Date Adrián Reynolds MD PCP - General 12/04/13 10/30/15 [address] [place], [place] [id number] documented as of this encounter
--- OUTSIDE RECORDS SUMMARY | 2022-08-04 16:27 | XMS_ITS | Encounter Summary ---
:1975 [place] [address] Care Team Providers Name Role Phone Derrick Quesada Primary Care Provider Encounter Details Date Type Department Care Team Description 07/20/2011 Orders Only Obstetrics and Dominga Graham AMA (adv anced maternal Gynecology at [facility] [place]) multigravida 35+ [facility] (Pr imary Dx) Drive [place], [place] OBSTETRICS & [phone] GYNECOLOGY [phone] [employer], [place] [address] Social History Tobacco Use Types Packs/Day Years Used Date Smoking Tobacco: Never Assessed Alcohol Use Standard Drinks/Week Comments No 0 (1 standard drink = 0.6 oz pure alcoho l) Sex Assigned at Date Recorded Not on file documented as of this encounter Plan of Treatment Not on filedocumented as of this encounter Results CF Carrier (07/20/2011 12:20 PM EST) P athologist Signature CF Carrier Complete [facility] Specimen Anatomical Collection Method Collection Time Receive d Time (Source) Location / / Volume Laterality Blood specimen 07/20/2011 12:20 1 2:38 (specimen) PM EST PM EST Luci Rosario MD HEMATOLOGY ORDERABLES Performing Organization Address City/State/ZIP [place] [address] [facility] documented in this encounter Visit Diagnoses Diagnosis AMA (advanced maternal age) multigravida 35+ - Primary Elderly multigravida with antepartum con dition or complication documented in this encounter Care Teams Hydraulic Elevator Constructor Relationship Specialty Start Date End Date Derrick Quesada DO PCP - General 08/01/10 07/03/12 [address] [place] [address] documented as of this encounter
--- OUTSIDE RECORDS SUMMARY | 2022-08-04 16:27 | XMS_ITS | Encounter Summary ---
:1975 Author Organization [place] [address] Care Team Providers Name Role Phone DipakDerrick Primary Care Provider Reason for Visit Reason Comments Rheumatoid Arthritis Encounter Details Date Type Department Care Team Description 08/31/2011 Office Visit [place] [facility] [place], Seropositive rheumatoid arth ritis (Primary Dx); [facility] DO JILLIAN Moore (advanced maternal age) multigravida [address] [place] [address] CENTER [phone] RHEUMATOLOGY DEPT. [place], [place] [address] Social History Tobacco Use Types Packs/Day Years Used Date Smoking Tobacco: Never Alcohol Use Standard Drinks/Week Comments No 0 (1 standard drink = 0.6 oz pure alcoho l) Sex Assigned at Date Recorded Not on file documented as of this encounter Last Filed Vital Signs Vital Sign Reading Time Taken Comments Blood Pressure 117/70 08/31/2011 8:25 AM EST Pulse 88 08/31/2011 8:25 AM EST Temperature 36.6 ??C (97.9 ??F) 08/31/2011 8:25 AM EST Respiratory Rate - - Oxygen Saturation 98% 08/31/2011 8:25 AM EST Inhaled Oxygen Concentration - - Weight 98.7 kg (217 lb 8 oz) 08/31/2011 8:25 AM EST Height 154.9 cm (5' 1) 08/31/2011 8:25 AM EST Body Mass Index 41.1 08/31/2011 8:25 AM EST documented in this encounter Progress Notes Rebeca Valerio, - 08/31/2011 9:02 AM EST Outpatient Rheumatology Consult HPI: 36 yo female who is 19 weeks gestation with RF+, CCP+ RA. Here to establish care. The patient was diagnosed with seropositive RA in 2006 and was seen here once by Dr. Bello. Was following with a certification officer at [facility]. Her RA control before was good on HCQ, MTX,and enbrel. She had very few flares on this combo. Prior xrays per patient showed no erosions. Unfortunately also got on this combination (her OCP was recalled b/c it was packaged improperly) and her prior certification officer suggested aborting the . The patient opted not to do that and has been following her with [facility]ORDS TECH and her is advancing normally. She stopped all RA meds ataround 6 weeks gestation which is when she found out she was . Her RA was OK during her 1st trimester but now during her 2nd trimester her pain is worse and she had to go to her local ED. They gave her 20 mg of prednisone and she has been taking that for 4 days. Currently her right hand, right foot, left knee and wrist and right shoulder are aching. The prednisone is helping a little. 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 [employer] Family Hx: maternal aunt with RA, does not her her father's side, 1 brother and 2 sisters with no autoimmune disease, has 2 children ages 10 and 8 Ros: Gen: no night sweats, fatigue or fevers Skin: no rashes, no hair loss Mouth: + dry mouth, no oral ulcers Eyes: no erythema or pain,+ occ dry eyes Lymph: no adenopathy Vascular: no Raynaud's, no digital ischemia Heart: no chest pain, palpitations Lungs: no dyspnea, cough, wheezing Abd: no pain, GERD, diarrhea, constipation : no dysuria, no flank pain Musculoskeletal: per HPI Gen: Patient is awake, alert and oriented x 3, in no distress Skin: warm and dry, no rheumatologic rashes Lymph: no cervical or submandibular adenopathy Thyroid: no nodules or thyromegaly Mouth: moist mucous membranes, no oral ulcers Eyes: normal sclerae Heart: regular rate, + murmur, no rubs or gallops Lungs: clear to auscultation b/l Joints: tenderness in the left wrist, right shoulder, left knee and both feet. Impingement signs in the right shoulder, I don't see any synovitis in any joint - she has some soft tissue prominence overher mcps. Left knee patellar tracks laterally and is causing some pain. Her knees are cool with no effusions. Assessment and Plan: 1. RF+, CCP+ RA 2. 19 weeks gestation 3. PTSD Discussed different options and decided that prednisone is likely the safest drug to treat her symptoms. Hopefully her RA will go into remission during the . She would like to wean off prednisone prior to and I agree with that. If not, we will try to get her to the lowest possible dose. Discussed the fact that she should probably not breast feed and get back on her meds right away.I suspect that she will have significant flare if she does not. For now, will increase her prednisone to 40 mg daily x 1 week, then 30 mg daily x 1 week then 20 mg daily x 1 week. I asked her to call me and we can decide on tapering instructions at that point. I also gave her my email. I will see her back in 2 months. Patient agrees with this plan. documented in this encounter Plan of Treatment Not on filedocumented as of this encounter Visit Diagnoses Diagnosis Seropositive rheumatoid arthritis - Prim yaneth Rheumatoid arthritis AMA (advanced maternal age) multigravida 35+ Elderly multigravida with antepartum con dition or complication documented in this encounter Care Teams Dry Mop Maker Relationship Specialty Start Date End Date Derrick Quesada DO PCP - General 08/01/10 07/03/[address] [place] [address] documented as of this encounter
--- OUTSIDE RECORDS SUMMARY | 2022-08-04 16:27 | XMS_ITS | Encounter Summary ---
:1975 Author Organization [facility] [place] [address] Care Team Providers Name Role Phone DipakDerrick cottrell Primary Care Provider Reason for Visit Reason Onset Date Comments Results 08/23/2011 Maternal serum AFP Encounter Details Date Type Department Care Team Description 08/23/2011 Telephone Obstetrics and Shaun Iverson, Results (Maternal serum Gynecology at [facility] [place] [facility] AFP) [facility] [place] [address] OBSTETRICS & [phone] GYNECOLOGY [place], [place] [address] (Wo rk) Social History Tobacco Use Types Packs/Day Years Used Date Smoking Tobacco: Never Assessed Alcohol Use Standard Drinks/Week Comments No 0 (1 standard drink = 0.6 oz pure alcoho l) Sex Assigned at Date Recorded Not on file documented as of this encounter Miscellaneous Notes Telephone Encounter - Shaun Iverson MS - 08/27/2011 4:32 PM EST I left a message for Kelly to call me regarding her maternal serum AFP results, which were normal, and her follow-up plan. documented in this encounter Plan of Treatment Not on filedocumented as of this encounter Visit Diagnoses Not on filedocumented in this encounter Care Teams Rn Clinical Coordinator Relationship Specialty Start Date End Date Derrick Quesada DO PCP - General 08/01/10 07/03/[address] [place] [address] documented as of this encounter
--- OUTSIDE RECORDS SUMMARY | 2022-08-04 16:27 | XMS_ITS | Encounter Summary ---
:1975 Author Organization [place] [place] [address] Care Team Providers Name Role Phone Adrián Reynolds MD Primary Care Provider [phone] Encounter Details Date Type Department Care Team Description 01/28/[address] Scan at [facility], DR CHAVEZ Abdominal pain, unspecified site; [facility] Rebeca Valerio, [facility] RHEUMATOLOGY DEPT. [place], [place] [id number] [place] [address] Social History Tobacco Use Types [...] Start Date End Date oxyCODONE (ROXICODONE) 5 Take 1-3 tablets by 100 tablet 0 02/15/2014 mg immediate release mouth every 3 hours tablet as needed for Pain. methylPREDNISolone 24 mg daily x 7 180 tablet 2 01/11/2014 1 10/03/2013 (MEDROL) 4 mg tablet days, then decrease by 4 mg every 7 days Adalimumab (HUMIRA PEN) Inject 0.8 mLs 4 kit 11 01/12/20 14 02/03/2014 40 mg/0.8 mL PnKt subcutaneously every 7 days. ondansetron (ZOFRAN-ODT) 0 12/24/2013 07/19/2014 4 mg oral disintegrating tablet PHENADOZ 25 mg 0 12/04/2013 02/03/2014 suppository folic acid (FOLVITE) 1 mg Take 1 tablet by 90 tablet 3 12/0905/10/2016 tablet mouth daily. hydroCODone-Acetaminophen Take 2 tablets by 32 tablet 0 02/03/2014 (VICODIN) 5-300 mg Tab mouth every 6 hours as needed. SUMAtriptan (IMITREX) 50 as needed. 0 09/16/2013 07/19/2014 mg tablet traMADol (ULTRAM) 50 mg Take 1-2 tablets by 240 tablet 3 03/18/2014 tablet mouth every 6 hours as needed for Pain. leflunomide (ARAVA) 20 mg Take 1 tablet by 90 tablet 3 11/0705/20/2014 tablet mouth daily. sertraline (ZOLOFT) 50 mg Take 100 mg by mouth 0 10/31/2015 tablet daily. clonAZEpam (KLONOPIN) 1 0 11/01/2006 1 09/18/2013 mg tablet documented as of this encounter Plan of Treatment Not on filedocumented as of this encounter Procedures Procedure Name Priority Date/Time Associated Diagnosis Comme nts CT ABDOMEN AND Routine 01/28/2014 4:33 PM Abdominal pain, Resu lts for this PELVIS W CONTRAST EDT unspecified si te procedure are in Diarrhea the results section. documented in this encounter Results CT abdomen & pelvis with contrast (01/28/2014 4:33 PM EDT) Anatomical Region Laterality Modality Abdomen, Pelvis Computed Tomography Specimen (Source) Anatomical Collection Method Collection Time Re ceived Time Location / / Volume Laterality 01/28/2014 4:33 PM EDT Narrative 01/29/2014 1:[address] Abdomen / Pelvis With Contrast Clinical History Rheumatoid arthritis/recurrent nausea/vo miting/diarrhea/abdominal pain Comparison None Technique Helical CT of the abdomen and pelvis acq uired after administration of intravenous and enteric contrast. IV contrast: ??Omnipaque 350, 110 mL. Findings Abdomen: ??Imaged portions of the lung b ases are unremarkable. ??The liver is normal in size and contour, without foca l hepatic lesion or biliary dilatation. ?? The gallbladder has been removed. ??The spleen is mildly enlarged, measuring up to 15.7 cm in length. ??The adrenal glan ds are atrophic, consistent with history of corticosteroid use. The pancreas and kidneys are normal. There is no free air. ??No dilated or abnormally thickene d loops of small bowel. ??No ascites, abdominal fluid collection, or abscess. ??No retroperitoneal or mesenteric adenopathy. There is extensive pneumatosis involving the cecum, ascending colon, and proximal transverse colon, without assoc iated wall thickening or adjacent stranding. ??The appendix is normal. ??N o small bowel pneumatosis is seen. ??The remainder of the colon is normal in appe arance, with ??moderate amount of formed stool seen from the transverse colon thr ough the rectum. The SMA and SMV appear patent, including the ileocolic and righ t colic branches of the SMA, within limits of this non arterial phase examin ation. ?? Pelvis: ??The uterus and adnexa are unre markable. ??The bladder is minimally filled but grossly normal in contour. ?? No free fluid, pelvic mass, or lymphadenopathy. Skeleton: ??No suspicious lytic or scler otic osseous lesion. ??The SI joints and hips are unremarkable. ??There is a mini mal levoconvex lumbar curvature, which may be positional. Impression ? 1. Pneumatosis involving the cecu m, ascending, and proximal transverse colon. ??While not associated with wall thickening or adjacent inflammatory changes and possibly related to corticos teroid use, this finding is concerning in the setting of recent onset of abdomi nal pain. CRITICAL FINDING. ? 2. No free air, small bowel pneum atosis, or evidence of vascular compromise. ? 3. Mild splenomegaly. Findings called to Dr. Valerio at 17 00 hr on 01/28/2014 Film and interpretation reviewed by the attending Procedure Note Lenny Cody MD - 01/29/2014Form atting of this note might be different from the original. Examination CT Abdomen / Pelvis With Contrast Clinical History Rheumatoid arthritis/recurrent nausea/vo miting/diarrhea/abdominal pain Comparison None Technique Helical CT of the abdomen and pelvis acq uired after administration of intravenous and enteric contrast. IV contrast: Omnipaque 350, 110 mL. Findings Abdomen: Imaged portions of the lung bas es are unremarkable. The liver is normal in size and contour, without foca l hepatic lesion or biliary dilatation. The gallbladder has been removed. The sp roberto carlos is mildly enlarged, measuring up to 15.7 [...] ascending colon, and proximal transverse colon, without assoc iated wall thickening or adjacent stranding. The appendix is normal. No sm all bowel pneumatosis is seen. The remainder of the colon is normal in appe arance, with moderate amount of formed stool seen from the transverse colon thr ough the rectum. The SMA and SMV appear patent, including the ileocolic and righ t colic branches of the SMA, within limits of this non arterial phase examin ation. Pelvis: The uterus and adnexa are unrema rkable. The bladder is minimally filled but grossly normal in contour. No free fluid, pelvic mass, or lymphadenopathy. Skeleton: No suspicious lytic or sclerot ic osseous lesion. The SI joints and hips are unremarkable. There is a minima l levoconvex lumbar curvature, which may be positional. Impression 1. Pneumatosis involving the cecum, asc ending, and proximal transverse colon. While not associated with wall th ickening or adjacent inflammatory changes and possibly related to corticos teroid use, this finding is concerning in the setting of recent onset of abdomi nal pain. CRITICAL FINDING. 2. No free air, small bowel pneumatosis , or evidence of vascular compromise. 3. Mild splenomegaly. Findings called to Dr. Valerio at 17 00 hr on 01/28/2014 Film and interpretation reviewed by the attending Rebeca Valerio DO [facility] [place] ORDERABLES documented in this encounter Visit Diagnoses Diagnosis Abdominal pain, unspecified site Diarrhea documented in this encounter Administered Medications Inactive Administered Medications - up to 3 most recent administrations Medication Order MAR Action Action Date Dose Rate Site iohexol (OMNIPAQUE) 350 mg Given 01/28/2014 2:00 PM EDT 17,500 m g iodine/mL injection 17,500 mg 17,500 mg (50 mL), Oral, ONCE PRN, 1 dose, Starting on Aditi 01/28/14 at 1624, Until Aditi 01/28/14 at 1400, Per Protocol, Routine iohexol (OMNIPAQUE) 350 mg Given by Other 01/28/2014 4:24 PM EDT 38,5 00 mg iodine/mL injection 38,500 mg 38,500 mg (110 mL), Intravenous, ONCE PRN, 1 dose, Starting on Aditi 01/28/14 at 1624, Until Aditi 01/28/14 at 1624, Per Protocol, Routine documented in this encounter Care Teams Straight Edger Relationship Specialty Start Date End Date Adrián Reynolds MD PCP - General 12/04/13 10/30/[address] [place] [address] documented as of this encounter
--- OUTSIDE RECORDS SUMMARY | 2022-08-04 16:27 | XMS_ITS | Encounter Summary ---
:1975 Author Organization [facility] [place] [address] Care Team Providers Name Role Phone Unknown Primary Care Provider Unavailable Reason for Visit Reason Onset Date Comments Medication Refill 08/04/2012 Encounter Details Date Type Department Care Team Description 08/04/2012 Refill Rheumatology at [facility] Rebeca Valerio, [facility] [place] [address] RHEUMATOLOGY DEPT. [phone] [place], [place] [address] (Wo rk) Social History Tobacco [...] on filedocumented in this encounter Care Teams Logistics Engineering Manager Relationship Specialty Start Date End Date Unknown PCP - General 07/04/12 11/27/12 None documented as of this encounter
--- OUTSIDE RECORDS SUMMARY | 2022-08-04 16:27 | XMS_ITS | Encounter Summary ---
:1975 Author Organization [facility] [place] [address] Care Team Providers Name Role Phone Adrián Reynolds MD Primary Care Provider Reason for Referral Consultation (Routine) - Closed by system - Referral Specialty Diagnoses / Procedures Referred By Contact Refer red To Contact Diagnoses Abdominal colic Diarrhea Vomiting Rebeca Valerio DO [facility] Ag Anderson [place] [address] Referral ID Status Reason Start Expiration Visits Visits Date Date Requested Authorized [id number] Closed by Consult, 01/18/2014 07/17/2014 1 1 system - Test & Referral Treat Encounter Details Date Type Department Care Team Description 01/18/2014 Orders Only [place] [facility] [place] [place]beca Valerio Abdominal colic; [facility] Ag Reeder DO Diarrhea; [place] [address] [facility] Vomiting [phone] RHEUMATOLOGY DEP T. [place], [place] [address] (Wo rk) Social History Tobacco [...] Order Schedule Diagnoses Referral to Outpatient Routine Abdominal colic Ordered: Gastroenterology Referral Diarrhea 01/18/2014 Vomiting documented as of this encounter Visit Diagnoses Diagnosis Abdominal colic Colic Diarrhea Vomiting Vomiting alone documented in this encounter Care Teams Credit Cashier Relationship Specialty Start Date End Date Adrián Reynolds MD PCP - General 12/04/13 10/30/[address] [place] [address] documented as of this encounter
--- OUTSIDE RECORDS SUMMARY | 2022-08-04 16:27 | XMS_ITS | Encounter Summary ---
:1975 Author Organization [facility] [address] Care Team Providers Name Role Phone Dipak, Derrick SEALS Primary Care Provider Reason for Visit Reason Comments Advanced Maternal Age Medication Exposure Encounter Details Date Type Department Care Team Description 07/20/2011 Office Visit Obstetrics and Dominga Graham AMA (adv anced maternal age) multigravida 35+ (Primary Dx); Gynecology at [facility] MS Medication exposure during first trimest er of [facility] [address] [place], [place] OBSTETRICS & [address] GYNECOLOGY [phone] [place], [place] [address] Social History Tobacco Use Types Packs/Day Years Used Date Smoking Tobacco: Never Assessed Alcohol Use Standard Drinks/Week Comments No 0 (1 standard drink = 0.6 oz pure alcoho l) Sex Assigned at Date Recorded Not on file documented as of this encounter Last Filed Vital Signs Vital Sign Reading Time Taken Comments Blood Pressure - - Pulse - - Temperature - - Respiratory Rate - - Oxygen Saturation - - Inhaled Oxygen Concentration - - Weight 96.2 kg (212 lb) 07/20/2011 2:14 PM EST Height 154.9 cm (5' 1) 07/20/2011 2:14 PM EST Body Mass Index 40.06 07/20/2011 2:14 PM EST documented in this encounter Progress Notes Dominga Graham MS - 07/20/2011 2:38 PM EST History: Monique is a Sab1 Tab1, LMP 04/25/2011. At the time of this visit, she was 12 weeks 2 days by LMP. Monique was seen for genetic counseling prior to her ultrasound. We discussed the followin. Advanced Maternal Age: We reviewed the association of maternal age and chromosomal aneuploidy. Wediscussed the options available to Monique, including anatomy ultrasound, first trimester screening, integrated screening, sequential screening, quad marker screening, chorionic villus sampling and amniocentesis, and each of their risks, benefits, and limitations. Monique and Giuliano were very clear that they wanted definitive information. They have opted for amniocentesis; we will schedule this appointment for them around 15-16 weeks. In the interim, they will proceed with first trimester screening so that they can have some information while waiting for amniocentesis. 2. Medication Exposure: Prior to finding out she was , Monique was taking multiple medications for her rheumatoid arthritis including: Enbrel, Hydroxychloroquine, Tramadol, and Methotrexate. Additionally, she was taking Sertraline and Clonazepam for her depression and anxiety. She was taking whitt pplemental folic acid. We discussed the bishop aspects of medication exposures including the timing of exposure and the dose of the medication. I also explained that data regarding the effects of medication on pregnancies is limited and that when multiple medications are taken, risks may be increased because of possible interactions between medications. Exposures during the period may affect the growth, maturation, and neurodevelopment of the fetus. Monique reported that she stopped taking all ofher medications except Sertraline and Clonazepam around 6 weeks gestation. We discussed that none of the medications except Methotrexate are thought to increase the risk for congenital anomalies above background risks. Selective serotonin-reuptake inhibitors have been associated with a transient withdrawal syndrome, as has prolonged Tramadol exposure. Methotrexate has been associated with an increased risk for defects. GENERAL PASSENGER AGENT abnormalities including spina bifidaand anencephaly have been reported, in addition to a characteristic clover-leaf skull anomaly. Limb anomalies and absent bone ossification have also been reported. In high doses, methotrexate is usedas an abortifacient in the setting of ectopic pregnancies. Some authors report a critical time period for exposure of 6-8 weeks post fertilization and a critical dose of 10 mg/week, however this is notuniversally accepted. We discussed the utility and limitations of ultrasound in identifying defects caused by medication exposures. 3. Cystic fibrosis: Monique opted for CF carrier testing and was consented. We will contact her directly with those results. documented in this encounter Plan of Treatment Not on filedocumented as of this encounter Visit Diagnoses Diagnosis AMA (advanced maternal age) multigravida 35+ - Primary Elderly multigravida with antepartum con dition or complication Medication exposure during first trimest er of Supervision of other high-risk documented in this encounter Care Teams Bryologist Relationship Specialty Start Date End Date Derrick Quesada DO PCP - General 08/01/10 07/03/[address] [place] [address] documented as of this encounter
--- OUTSIDE RECORDS SUMMARY | 2022-08-04 16:27 | XMS_ITS | Encounter Summary ---
:1975 Author Organization [facility] Address [address] [place] [address] Care Team Providers Name Role Phone Derrick Quesada Primary Care Provider Reason for Visit Reason Comments Advanced Maternal Age Medication Exposure Encounter Details Date Type Department Care Team Description 08/15/2011 Office Visit Obstetrics and Shaun Iverson AMA (ad vanced maternal age) multigravida 35+ (Primary Dx); Gynecology at [facility] Medication exposure during first trimest er of ; Replaced by [facility] eti counseling [address] [place], [place] OBSTETRICS & [address] GYNECOLOGY [phone] [place], [place] [address] Social History Tobacco Use Types Packs/Day Years Used Date Smoking Tobacco: Never Assessed Alcohol Use Standard Drinks/Week Comments No 0 (1 standard drink = 0.6 oz pure alcoho l) Sex Assigned at Date Recorded Not on file documented as of this encounter Progress Notes Shaun Iverson MS - 08/15/2011 4:01 PM EST Monique Zamora was referred to the Diagnosis Program by Beni Espinal MD due to advanced maternal age and medication exposures. She had a genetic counseling visit with Dominga Graham MS, on 07/20/2011. Please refer to her note for details. Monique returns today for amniocentesis. We met for a 45 minute genetic counseling visit prior to her ultrasound and maternal- medicine consultation. She was accompanied to the visit by her , Abdiel Zamora, and their two children. history Monique is a 36 y.o. female currently at 16w0d by menstrual dating (ISIDRO 01/30/2012). Her dating was confirmed by a 10 week ultrasound. According to Gladys's note, Prior to finding out she was , Monique was taking multiple medications for her rheumatoid arthritis including: Enbrel, Hydroxychloroquine, Tramadol, and Methotrexate. Additionally, she was taking Sertraline and Clonazepam for her depression and anxiety...Shaneareported that she stopped taking all of her medications except Sertraline and Clonazepam around 6 weeks gestation. Assessment Advanced maternal age First trimester exposure to methotrexate Discussion We reviewed the association of maternal age with aneuploidy. At Monique's last visit, she had decided to have an amniocentesis, but she also opted for first trimester screening for more information. Her first trimester screen results were screen negative for Down syndrome (risk 1:4600) and trisomy 18 (risk <1:64806). We reviewed the association of methotrexate with congenital malformations, including neural tube defects. About 90-95% of fetuses with an open neural tube defect are identified by a targeted morphologyultrasound. A normal amniotic fluid AFP rules out open spina bifida in approximately 96% of fetuses. We discussed the benefits, risks, and limitations of amniocentesis in detail. We spent much time considering the relatively greater risk of miscarriage from amniocentesis compared to the risk for aneuploidy; however, the increased detection rate of neural tube defects from amniocentesis is also important to Monique. She and Abdiel would consider termination for a congenital abnormality. At this time, Monique is reconsidering whether or not to have an amniocentesis. She will await the results of today's ultrasound before making a decision. We discussed the limitations of ultrasound at 16 weeks. Plan Monique is scheduled for a targeted morphology ultrasound following our visit today. She will make a decision regarding amniocentesis based on those results. documented in this encounter Miscellaneous Notes Miscellaneous - Mitchel Shannon - 09/24/2011 2:04 PM EST documented in this encounter Plan of Treatment Not on filedocumented as of this encounter Visit Diagnoses Diagnosis AMA (advanced maternal age) multigravida 35+ - Primary Elderly multigravida with antepartum con dition or complication Medication exposure during first trimest er of Supervision of other high-risk Genetic counseling documented in this encounter Care Teams Rfid Systems Engineer Relationship Specialty Start Date End Date Derrick Quesada DO PCP - General 08/01/10 07/03/[address] [place] [address] documented as of this encounter
--- OUTSIDE RECORDS SUMMARY | 2022-08-04 16:27 | XMS_ITS | Encounter Summary ---
:1975 Author Organization [facility] [address] Care Team Providers Name Role Phone Adrián Reynolds MD Primary Care Provider [phone] Encounter Details Date Type Department Care Team Description 01/05/2014 Follow-Up Rheumatology at [facility] Iman, Rheumatoid arthritis(714.0) (Primary Dx); [facility] Rebeca Reeder DO [place] [address] CENTER [phone] RHEUMATOLOGY DEPT. [place] [id number] Social History Tobacco Use Types Packs/Day Years Used Date Smoking Tobacco: Former Cigarettes Comments: quit 2 years ago Alcohol Use Standard Drinks/Week Comments No 0 (1 standard drink = 0.6 oz pure alcoho l) Sex Assigned at Date Recorded Not on file documented as of this encounter Last Filed Vital Signs Vital Sign Reading Time Taken Comments Blood Pressure 127/80 01/05/2014 11:18 AM EDT Pulse 78 01/05/2014 11:18 AM EDT Temperature 36.7 ??C (98 ??F) 01/05/2014 11:18 AM EDT Respiratory Rate - - Oxygen Saturation 99% 01/05/2014 11:18 AM EDT Inhaled Oxygen Concentration - - Weight 87.5 kg (193 lb) 01/05/2014 11:18 AM EDT Height 154.9 cm (5' 1) 01/05/2014 11:18 AM EDT Body Mass Index 36.47 01/05/2014 11:18 AM EDT documented in this encounter Progress Notes Rebeca Valerio DO - 01/05/2014 11:30 AM EDT Outpatient Rheumatology Followup HPI: 37 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 The patient was diagnosed with seropositive RA in 2006 and was seen here once by Dr. Bello. Was following with a auction assistant at [facility]. Her RA control before was good on HCQ, MTX,and enbrel. She had very few flares on this combo. Prior xrays per patient showed no erosions. Unfortunately also got on this combination (her OCP was recalled b/c it was packaged improperly) and her prior auction assistant suggested aborting the . The patient opted not to do that and has been following her with [facility] and her is advancing normally. She stopped [...] January 2012. Interim History: Last seen in mid-November.Decided to start arava and humira. Could not tolerate arava due to GI side effects. Developed an infectious GI illness and stopped arava and humira. Called last week with severe joint pain. Can not tolerate higher doses of steroids due to mood issues. I called in vicodin and asked her to take 2 at a time. Vicodin has never really worked for her joint pain so I also gave her a small prescription for oxycodone to try. This did help. She finished her cipro on Saturday. Then developed what looked like a viral gastroenteritis. She went a few days without medrol. Her hands were swollen and stiff. She took it this morning and her hands are better. She is currently on 24 mg of medrol x 2 days. 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 Family Hx: maternal aunt with RA, does not her her father's side, 1 brother and 2 sisters with no autoimmune disease, has 3 children Assessment and Plan: 1. RF+, CCP+ RA 2. PTSD, depression and anxiety 3. Recent blood diarrhea, resolved, followed by viral gastroenteritis I spent 25 minutes with the patient and all of that time was spent in discussion of the information below: All of her infectious issues seem resolved at this point. Take medrol 24 mg daily x 7 days then taper medrol by 1 tablets every 7 days. Restart humira 40 mg weekly Restart MTX 10 mg weekly. Folic acid 1 mg daily RTC in 6 weeks. If any problems before that she knows to contact me. I am also filling out [employer] paperwork and she is pursuing [employer]. documented in this encounter Miscellaneous Notes Miscellaneous - Provider, Scanning - 01/12/2014 7:33 AM EDT Miscellaneous - Provider, Scanning - 01/06/2014 10:15 AM EDT documented in this encounter Plan of Treatment Not on filedocumented as of this encounter Visit Diagnoses Diagnosis Rheumatoid arthritis(714.0) - Primary Rheumatoid arthritis Viral gastroenteritis Intestinal infection due to other organi sm, not elsewhere classified documented in this encounter Care Teams Law Instructor Relationship Specialty Start Date End Date Adrián Reynolds MD PCP - General 12/04/13 10/30/15 [address] [place] [address] documented as of this encounter
--- OUTSIDE RECORDS SUMMARY | 2022-08-04 16:27 | XMS_ITS | Encounter Summary ---
:1975 Author Organization [facility] [place] [address] Care Team Providers Name Role Phone Derrick Quesada Primary Care Provider Reason for Visit Reason Comments Advanced Maternal Age Rheumatoid Arthritis Encounter Details Date Type Department Care Team Description 08/15/2011 Office Visit Obstetrics and Wesly Manzanares (advanced maternal age) multigravida 35+; Gynecology at [facility] MD Taylor Medication exposure during first trimest er of [facility] [address] [place], [place] OBSTETRICS & [phone] GYNECOLOGY [phone] [place], [place] [address] Social History Tobacco Use Types Packs/Day Years Used Date Smoking Tobacco: Never Assessed Alcohol Use Standard Drinks/Week Comments No 0 (1 standard drink = 0.6 oz pure alcoho l) Sex Assigned at Date Recorded Not on file documented as of this encounter Progress Notes Wesly Manzanares MD - 08/25/2011 3:24 PM EST Diagnosis/Maternal Medicine Consult Note Monique Zamora is a 36 y.o. year old female with an ISIDRO of Not found. who is at 17w3d weeks gestation. She is referred at the request of Beni Espinal MD for evaluation of anatomy in thecontext of medication exposure and advanced maternal age. She was seen today for maternal- medicine consultation, ultrasound evaluation and genetic counseling with Dominga Graham MS. First trimester screen gave revised risk estimates as follows: risk of T21: 1:4600, risk of T18: <1:10,000. Review of Systems Constitutional:feels well Movement: normal Contractions: none Leaking: None Bleeding: none now Patient Active Problem List Diagnoses Date Noted ??? AMA (advanced maternal age) multigravida 35+ [659.63F] 08/25/2011 ??? Rheumatoid arthritis [714.0] ??? Anxiety [300.00E] ??? Depression [311L] Past Medical History Diagnosis Date ??? Rheumatoid arthritis ??? Depression ??? Anxiety History reviewed. No pertinent past surgical history. Family History Problem Relation Age of Onset ??? Chronic Obstructive Pulmonary Disease Mother Social History Occupational History ??? Not on file. Social History Main Topics ??? Smoking status: Not on file ??? Smokeless tobacco: Not on file ??? Alcohol Use: No ??? Drug Use: No ??? Sexually Active: Yes -- Male partner(s) OB History Grav Para Term Abortions TAB SAB Ect Mult Living 5 2 2 2 1 1 # Outc Date GA Lbr Adryan/2nd Wgt Sex Del Anes PTL Lv 1 TAB 1988 2 SAB 1990 3 TRM 01/07 3.969kg(7lv03he) M LTCS 4 TRM 10/13 3.799kg(8lb6oz) F LTCS 5 CUR Current outpatient prescriptions Medication Sig Dispense Refill ??? sertraline (ZOLOFT) 50 mg tablet Take 50 mg by mouth daily. ? ? vitamin 27 & [id number] 60 mg iron-1 mg tablet Take 1 tablet by mouth daily. ??? folic acid (FOLVITE) 1 mg tablet 1MG = 1 Tablet(s), PO, Twice daily ??? lansoprazole (PREVACID) 30 mg capsule ??? etanercept (ENBREL) 50 mg/mL (0.98 mL) injection 50MG/1ML, SQ, QWEEK ??? clonAZEpam (KLONOPIN) 1 mg tablet ??? predniSONE (DELTASONE) 10 mg tablet Taper/Titrate, PO ??? OXYcodone (ROXICODONE) 15 mg immediate release tablet 15MG = 1 Tablet(s), PO, Three times daily ??? methotrexate 10 mg tablet 7.5MG = 3 Tablet(s), PO, QWEEK ??? zolpidem (AMBIEN) 10 mg tablet ??? DISCONTD: CIS Free Text Med - Tri Erica Allergies Allergen Reactions ??? Sulfa (Sulfonamide Antibiotics) CIS - Anaphylaxis Ultrasound Date: 08/25/2011 Growth appropriate for gestational age Amniotic fluid volume normal Placenta anterior Presentation breech anatomy appears within normal limits Physical Exam General: alert, well appearing, in no apparent distress, oriented to person, place and time HEENT: normocephalic, atraumatic Abdomen: Soft, nontender Extremities: no edema Neurologic:alert, oriented, normal speech, no focal findings or movement disorder noted Psychiatric: Affect is Appropriate. Assessment and Recommendations: 36 y.o. year old female at 17w3d weeks gestation with normal appearing anatomy. The patient was counseled as to her risk of aneuploidy and the possibility of definitive diagnosis by amniocentesis. The limitations of serum screening and ultrasound in predicting aneuploidy, and risk of loss due to amniocentesis were also discussed. I reviewed the ultrasound findingswith the patient and her , and the usefulness of ultrasound as a genetic screening tool. I explained that amniocentesis only counts chromosomes and looks for large pieces that are missing or duplicated or rearranged. Amniocentesis will not diagnose cerebral palsy, autism, learning disabilities or single gene defects. After thoughtful consideration the patient and her partner declined amniocentesis with certainty. I appreciate the opportunity to be involved in this patients care, and am available if further questions should arise. Wesly MANZANARES MD 08/25/2011 Cc: Beni Espinal MD, with copy of ultrasound report documented in this encounter Plan of Treatment Not on filedocumented as of this encounter Procedures Procedure Name Priority Date/Time Associated Diagnosis Comme nts ALPHA FETOPROTEIN, Routine 08/15/2011 3:29 PM AMA (advanced Re sults for this MATERNAL EST maternal age) procedure are in multigravida 35+ the results Medication exposure section. during first trimester of documented in this encounter Results Alpha Fetoprotein, Maternal (08/15/2011 3:29 PM EST) [facility] gist Method Time Signature AFP Maternal Screen [facility] Serum Negative MILLENNIUM Comment: Please see scanned report in Chart Revie w under the Non-DH Laboratory Heading. Test performed by [facility] for Blood R GALEN [address], [place] [address] Specimen Anatomical Collection Method Collection Time Receive d Time (Source) Location / / Volume Laterality Blood specimen 08/15/2011 3:29 PM 011 8:47 (specimen) EST AM EST Narrative This result has an attachment that is no t available. E Taylor Manzanares MD CHEMISTRY ORDERABLES Performing Organization Address City/State/[place] [address] [facility] documented in this encounter Visit Diagnoses Diagnosis AMA (advanced maternal age) multigravida 35+ Elderly multigravida with antepartum con dition or complication Medication exposure during first trimest er of Supervision of other high-risk documented in this encounter Care Teams Chief Environmental Commitment Officer Relationship Specialty Start Date End Date Derrick Quesada DO PCP - General 08/01/10 07/03/[address] [place] [address] documented as of this encounter
--- OUTSIDE RECORDS SUMMARY | 2022-08-04 16:27 | XMS_ITS | Encounter Summary ---
:1975 Author Organization [place] [address] Care Team Providers Name Role Phone Unknown Primary Care Provider Unavailable Encounter Details Date Type Department Care Team Description 11/27/2012 Orders Only Rheumatology at [facility] Iman RA ([facility] Rebeca Reeder DO arthritis) (Primary [facility] [place]x) [place] [address] RHEUMATOLOGY DEP [place], [place] [address] Social History Tobacco Use Types [...] RA (rheumatoid arthritis) - Primary Rheumatoid arthritis documented in this encounter Care Teams Aeronautical Research Engineer Relationship Specialty Start Date End Date Unknown PCP - General 07/04/12 11/27/12 None documented as of this encounter
--- OUTSIDE RECORDS SUMMARY | 2022-08-04 16:27 | XMS_ITS | Encounter Summary ---
:1975 Author Organization [facility] [place] [address] Care Team Providers Name Role Phone Derrick Quesada Primary Care Provider Encounter Details Date Type Department Care Team Description 12/08/2011 Hospital Encounter Laboratory Noah Glasgow MD [address] [place] [address] PEDIATRICS/[place] [phone] [address] [place] [id number] (Wo rk) Social History Tobacco Use Types [...] Take 1 tablet by mouth 0 06/20/2012 [id number] 60 mg daily. iron-1 mg tablet methotrexate [...] Procedure Name Priority Date/Time Associated Diagnosis Comme [facility] SURGICAL PATHOLOGY Routine 12/08/2011 11:17 AM Sharon packer for this REPORT EDT procedure are i n the results section. documented in this encounter Results SURGICAL PATHOLOGY REPORT (12/08/2011 11:17 AM EDT) Component Value Ref Test Analysis Performed At [facility] Range Method Time Signature Surgical CERNER Pathology ? [facility] Report ? Provider: ?? MARGO AGUILA Pt. Name: ?? MONIQUE ZAMORA ?R ? Acc #: ?[id number] ?Pt. MRN: ?[id number] ? Col Date: ?? 2 ? /Sex: ?1975,(36 years),Female ? Rec Date: ?? 12/14/2011 ?LOC: ?OPW ? SURGICAL PATHOLOGY ? ---Pathologic Diagnosis--- ? Third trimester placenta, cord and membranes: ? Negative for chorioamnionitis or funisitis. ? Feto-maternal hemorrhage (1 ml) ? CR-0 ? 12/18/11 ? KO ? 12/18/11 Verified by: ? Brittney Hanson MD ? Pathologist ? (Electronic Si gnature) ? The attending pathologist whose signature appears o n this report has ? reviewed all diagnostic slides and has edited the hai ss and/or ? microscopic portion of the report in rendering the fi nal pathologic ? diagnosis. ? ---Microscopic Description--- ? Slides reviewed, microscopic description not recorded . ? ---Gross Description--- ? Labeled/Fixative: ? Placenta and umbilical cord, formalin. ? Qty/Size/Weight: ?Single, 19.0 x 18.0 x 3.0 cm , 576 g. ? Tissue Description: ?? Discoid tripathi placenta. ?Membranes: ? [place], semitransparent. ??100% marginal insertion. ?Cord: ?38.0 x 1.5 cm; three vessels; eccentric insertion. ? Surface: ? Purple and clear. ?Maternal Surface: ??Grossly intact without adh erent blood clot. ?Parenchyma: ?The specimen is serially sectioned at 0.5-cm to ? 1.0-cm intervals. ??Sections show a red, spongy ? parenchyma with a 1.0-cm, benton-red, laminated lesion. ?Other: ? Received detached is a 3.0-cm aggregate of dusky, ? brown, membranous material and segment of dusky brown ? edematous membrane differing from membranes that are ? attached. ? Sections/Processing: ??Sections are submitted as follows: ??(1) membrane ? roll; (2) proximal and distal cord; (3) surface ? with parenchyma; (4) maternal surface wit h parenchyma; (5) parenchymal ? lesion and dusky membranes; (6) edematous membr anes. ??(R6) ??aje/SNS ? ---Clinical Information--- ? Specimen Submitted: ? [facility] ? Provider: ?? MARGO AGUILA Pt. Name: ?? MONIQUE ZAMORA ?R ? Acc #: ?[id number] ?Pt. MRN: ?[id number] ? Col Date: ?? 2 ? /Sex: ?1975,(36 years),Female ? Rec Date: ?? 12/14/2011 ?LOC: ?OPW ? A - Placenta for exam ? SURGICAL PATHOLOGY ? Clinical History/Diagnosis: ? PROM and placenta abruption Specimen (Source) Anatomical Collection Method Collection Time Re ceived Time Location / / Volume Laterality 12/08/2011 11:17 AM EDT Margo Aguila APRN PATHOLOGY/CYTOLOGY ORDERABLE S Performing Organization Address City/State/[facility] [place] [address] [facility] documented in this encounter Visit Diagnoses Not on filedocumented in this encounter Care Teams Sample Mounter Relationship Specialty Start Date End Date Derrick Quesada DO PCP - General 08/01/10 07/03/[address] [place] [address] documented as of this encounter
--- OUTSIDE RECORDS SUMMARY | 2022-08-04 16:27 | XMS_ITS | Encounter Summary ---
:1975 Author Organization [facility] [place] [address] Care Team Providers Name Role Phone DipakDerrick Primary Care Provider Encounter Details Date Type Department Care Team Description 01/14/2012 Orders Only Rheumatology at [facility] Rebeca Valerio [facility] [place] [address] [facility] [phone] RHEUMATOLOGY [place], [place] [address] (Wo rk) Social History Tobacco Use Types Packs/Day Years Used Date Smoking Tobacco: Former Cigarettes Comments: quit 2 years ago Alcohol Use Standard Drinks/Week Comments No 0 (1 standard drink = 0.6 oz pure alcoho l) Sex Assigned at Date Recorded Not on file documented as of this encounter Progress Notes Rebeca Valerio DO - 01/14/2012 8:40 PM EDT I spoke with the patient today. She delivered her son, Milad, 7 weeks early after she had a placental abruption and emergency . He was in our NICU for awhile but now both of them are home. Has been taking enbrel 50 mg weekly and had weaned her prednisone down to 10 mg and now is on the worstflare she has ever experienced. Every joint except for her spine hurts. She is having a difficult time taking care of the baby. We discussed and agreed to the following plan: - increase prednisone to 30 mg daily and then email me with an update of how she is feeling - restart methotrexate 15 mg subcu weekly -restart folic acid 1 mg daily - we will determine how to taper her prednisone when she contacts me in 2 weeks and we will need to arrange a follow up appointment as well. documented in this encounter Plan of Treatment Not on filedocumented as of this encounter Visit Diagnoses Not on filedocumented in this encounter Care Teams Quality System Manager Relationship Specialty Start Date End Date Derrick Quesada DO PCP - General 08/01/10 07/03/[address] [place] [address] documented as of this encounter
--- OUTSIDE RECORDS SUMMARY | 2022-08-04 16:27 | XMS_ITS | Encounter Summary ---
:1975 Author Organization [facility] Address [address] [place] [address] Care Team Providers Name Role Phone Dipak, Derrick SEALS Primary Care Provider Encounter Details Date Type Department Care Team Description 06/20/2012 Hospital Encounter XRay at [facility] RA (rheumatoid [address] [place] [address] arthritis) [place] [address] Social History Tobacco Use Types Packs/Day Years Used Date Smoking Tobacco: Former Cigarettes Comments: quit 2 years ago Alcohol Use Standard Drinks/Week Comments No 0 (1 standard drink = 0.6 oz pure alcoho l) Sex Assigned at Date Recorded Not on file documented as of this encounter Medications at Time of Discharge Medication Sig Dispensed Refills Start Date End Date predniSONE Take 30 mg by mouth 0 11/27 (DELTASONE) 10 mg daily. Take three pills tablet a day. methotrexate 25 mg/mL Inject 1 mL 10 mL 11 06/20/2012 chemo injection subcutaneously once a week. Syringe with Needle, by [facility]Non-Drug; 12 Syringe 3 012 07/23/2013 Disp, 1 mL 25 x 5/8 Combo Route) route. For Syrg use with weekly methotrexate traMADol (ULTRAM) 50 Take 1-2 tablets by 240 tablet 3 201108/04/2012 mg tablet mouth every 6 hours as needed for Pain. predniSONE Take 3 tablets by mouth 270 tablet 3 01/14/2012 0 11/27/2012 (DELTASONE) 10 mg daily. As directed tablet folic acid (FOLVITE) Take 1 tablet by mouth 90 tablet 3 03/201203/05/2013 1 mg tablet daily. ibuprofen Take 1 tablet by mouth 90 tablet 1 12/11/2011 (ADVIL;MOTRIN) 600 mg every 6 hours. tablet etanercept (ENBREL) Inject 1 mL 12 each 3 10/30/201101/07 50 mg/mL (0.98 mL) subcutaneously every 7 injectionIndications: days. Indications: rheumatoid arthritis Rheumatoid Arthritis sertraline (ZOLOFT) Take 100 mg by mouth 0 10/31/2015 50 mg tablet daily. clonAZEpam (KLONOPIN) 0 11/01/200606/2014 1 mg tablet documented as of this encounter Plan of Treatment Not on filedocumented as of this encounter Procedures Procedure Name Priority Date/Time Associated Diagnosis Comme nts XR FOOT MIN 3 VIEWS Routine 06/20/2012 11:23 AM Rheumatoid art hritis Results for this BILAT EDT procedure are i n the results section. documented in this encounter Results XR FEET BILATERAL MINIMUM 3 VIEWS (06/20/2012 11:23 AM EDT) Anatomical Region Laterality Modality Foot Bilateral Radiographic Imaging Specimen (Source) Anatomical Collection Method Collection Time Re ceived Time Location / / Volume Laterality 06/20/2012 11:23 AM EDT Narrative 06/21/2012 10:53 PM EDT Examination BILATERAL FEET MINIMUM 3 VIEWS/BILAT Clinical History RA, new baseline Comparison None available. Technique 3 views of each foot. Findings The bony mineralization and alignment ar e normal. ??No osseous erosive or destructive changes are seen. ??The join t spaces are preserved. ??There is a small enthesophyte at the Achilles inser tion bilaterally with bilateral plantar calcaneal spurs. ??There are 2 indetermi antoine round radiodensities adjacent to the mid diaphysis of the 5th metatarsal. ??This may reflect calcification within the soft tissue were retained foreign ely dy. Impression 1. ??The joint spaces are preserved. ??N o osseous erosions. Film and interpretation reviewed by the attending Procedure Note Josué Pacheco MD - 06/21/2012Formatti ng of this note might be different from the original. Examination BILATERAL FEET MINIMUM 3 VIEWS/BILAT Clinical History RA, new baseline Comparison None available. Technique 3 views of each foot. Findings The bony mineralization and alignment ar e normal. No osseous erosive or destructive changes are seen. The joint spaces are preserved. There is a small enthesophyte at the Achilles inser tion bilaterally with bilateral plantar calcaneal spurs. There are 2 indetermina te round radiodensities adjacent to the mid diaphysis of the 5th metatarsal. This may reflect calcification within the soft tissue were retained foreign ely dy. Impression 1. The joint spaces are preserved. No os seous erosions. Film and interpretation reviewed by the attending Rebeca Valerio DO IMG DX ORDERABLES documented in this encounter Visit Diagnoses Diagnosis RA (rheumatoid arthritis) Rheumatoid arthritis documented in this encounter Care Teams Geology Faculty Member Relationship Specialty Start Date End Date Derrick Quesada DO PCP - General 08/01/10 07/03/[address] [place] [address] documented as of this encounter
--- OUTSIDE RECORDS SUMMARY | 2022-08-04 16:27 | XMS_ITS | Encounter Summary ---
:1975 Author Organization [facility] [place] [address] Care Team Providers Name Role Phone Sanjana Lujan APRN Primary Care Provider Reason for Visit Reason Onset Date Comments Prior Authorization 02/17/2013 ENBREL-APPROVED Encounter Details Date Type Department Care Team Description 02/17/2013 Telephone [place]ology at [facility] Jarvis Wallace Prior Authorization [facility] (ENBREL-A PPROVED) [place] [address] Social History Tobacco Use Types Packs/Day Years Used Date Smoking Tobacco: Former Cigarettes Comments: quit 2 years ago Alcohol Use Standard Drinks/Week Comments No 0 (1 standard drink = 0.6 oz pure alcoho l) Sex Assigned at Date Recorded Not on file documented as of this encounter Miscellaneous Notes Telephone Encounter - Jarvis House - 02/17/2013 8:43 AM EDT Medication Prior Authorization RHEUMATOLOGY [facility] Medication name/dose/directions: ENBREL 50MG INJECT SQ Q ONCE A WEEK Rationale for request: RA Health plan: [employer] ID# [id number] Authorizing petroleum products sales representative name: APPROVAL FAXED TO OFFICE Faxed to health plan on: 02/06/13 Health plan decision: Approved Quantity approved: 01/04 Authorization number: Start date: 02/06/13 End date: 02/06/14 Patient notified? yes Pharmacy notified? yes documented in this encounter Plan of Treatment Not on filedocumented as of this encounter Visit Diagnoses Not on filedocumented in this encounter Care Teams Outreach Consultant Relationship Specialty Start Date End Date Sanjana Lujan APRN PCP - General 11/28/12 03/05/13 [address] [place] [address] documented as of this encounter
--- OUTSIDE RECORDS SUMMARY | 2022-08-04 16:27 | XMS_ITS | Encounter Summary ---
:1975 Author Organization [facility] Address [address] [place] [address] Care Team Providers Name Role Phone DipakDerrick cottrell Primary Care Provider Reason for Visit Reason Onset Date Comments Arthritis 10/19/2013 Multiple Joints Encounter Details Date Type Department Care Team Description 10/19/2013 Telephone Rheumatology at [facility] Deja Ibanez, Arthritis ([facility] Ag luke RN Joints) [place] [address] Social History Tobacco Use Types Packs/Day Years Used Date Smoking Tobacco: Former Cigarettes Comments: quit 2 years ago Alcohol Use Standard Drinks/Week Comments No 0 (1 standard drink = 0.6 oz pure alcoho l) Sex Assigned at Date Recorded Not on file documented as of this encounter Miscellaneous Notes Telephone Encounter - Deja Ibanez RN - 10/19/2013 4:16 PM EST I have spoken with Moniqeu and she agrees with POC noted in last message. Telephone Encounter - Deja Ibanez RN - 10/19/2013 1:30 PM EST No, I will give her a call tomorrow. In the meantime, can you have her try the following prednisone taper? Prednisone 20 mg daily x 1 weeks, 15 mg daily x 1 week. 10 mg daily x 1 week and 5 mg daily x 1 week. thanks Message left for Monique to call me back. Rx sent to pharmacy for Prednisone. Telephone Encounter - Deja Ibanez RN - 10/19/2013 9:54 AM EST Monique calls today and states she is having a flare of her arthritis, she reports multiple areas ofswelling warmth and redness, to include her Left hand and fingers, knees,Left shoulder,Toes, and Right arm. She denies any fevers or rashes. She has taken 20 mg of prednisone with slight relief, she does not recall what she last had for a taper. She states that had mentioned starting another medication as well. I will check with for her recommendations for the immediate flare. documented in this encounter Plan of Treatment Not on filedocumented as of this encounter Visit Diagnoses Not on filedocumented in this encounter Care Teams Master Cook Relationship Specialty Start Date End Date Derrick Quesada DO PCP - General 04/03/13 12/03/13 [address] [place] [address] documented as of this encounter
--- OUTSIDE RECORDS SUMMARY | 2022-08-04 16:27 | XMS_ITS | Encounter Summary ---
:1975 Author Organization [facility] [place] [address] Care Team Providers Name Role Phone Sanjana Lujan APRN Primary Care Provider Reason for Visit Reason Onset Date Comments Medication Refill 01/22/2013 Encounter Details Date Type Department Care Team Description 01/22/2013 Refill Rheumatology at [facility] Aleena Jones APRN [facility] [place] [address] RHEUMATOLOGY DEPT. [phone] [place], [place] [address] (Wo rk) Social History Tobacco [...] on filedocumented in this encounter Care Teams Associate Chief Nurse Relationship Specialty Start Date End Date Sanjana Lujan APRN PCP - General 11/28/12 03/05/13 [address] [place] [address] documented as of this encounter
--- OUTSIDE RECORDS SUMMARY | 2022-08-04 16:27 | XMS_ITS | Encounter Summary ---
:1975 Author Organization [facility] Address [address] [place] [address] Care Team Providers Name Role Phone DipakDerrick cottrell Primary Care Provider Encounter Details Date Type Department Care Team Description 06/20/2012 Hospital Encounter XRay at [facility] DR SCOTT EMERSON ([address] Rebeca Belcher, [facility] [address] [place] [address] arthritis) [place] [id number] Social History Tobacco Use Types Packs/Day Years [...] once a week. Syringe with Needle, by [facility].(Non-Drug; 12 Syringe 3 012 07/23/2013 Disp, 1 [...] Priority Date/Time Associated Diagnosis Comme nts XR HANDS MIN 3 Routine 06/20/2012 11:26 AM RA (rheumatoid Resu lts for this VIEWS BILAT EDT arthritis) procedure are i n the results section. documented in this encounter Results XR hands bilateral (06/20/2012 11:26 AM EDT) Anatomical Region Laterality Modality Hand Bilateral Radiographic Imaging Specimen (Source) Anatomical Collection Method Collection Time Re ceived Time Location / / Volume Laterality 06/20/2012 11:26 AM EDT Narrative 06/21/2012 10:53 PM EDT Examination BILATERAL HANDS/BILAT Clinical History RA, new baseline Comparison None available. Technique 4 views of the bilateral hands. Findings The bony mineralization and alignment is normal. ??There is no appreciable soft tissue swelling. ??No osseous erosions a re identified. ??The joint spaces are preserved. Impression 1. ??Normal radiographs of the hands. ?? No osseous erosions or joint space loss identified Film and interpretation reviewed by the attending Procedure Note Josué Pacheco MD - 06/21/2012Formattjai ng of this note might be different from the original. Examination BILATERAL HANDS/BILAT Clinical History RA, new baseline Comparison None available. Technique 4 views of the bilateral hands. Findings The bony mineralization and alignment is normal. There is no appreciable soft tissue swelling. No osseous erosions are identified. The joint spaces are preserved. Impression 1. Normal radiographs of the hands. No o sseous erosions or joint space loss identified Film and interpretation reviewed by the attending Rebeca Valerio DO IMRyan DX ORDERABLES documented in this encounter Visit Diagnoses Diagnosis RA (rheumatoid arthritis) Rheumatoid arthritis documented in this encounter Care Teams Grinding Operator Relationship Specialty Start Date End Date Derrick Quesada DO PCP - General 08/01/10 07/03/[address] [place] [address] documented as of this encounter
--- OUTSIDE RECORDS SUMMARY | 2022-08-04 16:27 | XMS_ITS | Encounter Summary ---
:1975 Author Organization [facility] [address] Care Team Providers Name Role Phone DipakDerrick cottrell Primary Care Provider Encounter Details Date Type Department Care Team Description 07/20/2011 Hospital Encounter Laboratory Beni Espinal MD [facility] [address] [place] [address] [place] [address] [phone] Social History Tobacco Use Types Packs/Day Years [...] & Take 1 tablet by 0 06/20/2012 [id number] 60 mg mouth daily. iron-1 mg tablet [...] Name Priority Date/Time Associated Diagnosis Comme nts FIRST TRIMESTER Routine 07/20/2011 12:20 PM Resul ts for this SCREEN EST procedure are i n the results section. documented in this encounter Results FIRST TRIMESTER PROFILE (07/20/2011 12:20 PM EST) [facility] Method Time Signature Trimester 1 Screen CERNER Profile Negative MILLENNIUM Comment: Please see scanned report in Chart Revie w under the Non-DH Laboratory Heading. Test performed by [facility], [address], [place] [address] Specimen Anatomical Collection Method Collection Time Receive d Time (Source) Location / / Volume Laterality Blood specimen 07/20/2011 12:20 1 2:35 (specimen) PM EST PM EST Narrative This result has an attachment that is no t available. Beni Espinal MD CHEMISTRY ORDERABLES Performing Organization Address City/State/ZIP Code Phon e Number [place] [phone] [facility] documented in this encounter Visit Diagnoses Not on filedocumented in this encounter Care Teams Ell Tutor Relationship Specialty Start Date End Date Derrick Quesada DO PCP - General 08/01/10 07/03/[address] [place] [address] documented as of this encounter
--- OUTSIDE RECORDS SUMMARY | 2022-08-04 16:27 | XMS_ITS | Encounter Summary ---
:1975 Author Organization [facility] [place] [address] Care Team Providers Name Role Phone Adrián Reynolds MD Primary Care Provider [phone] Reason for Referral Consultation (Routine) - Complete-Ref Provider Notified Specialty Diagnoses / Procedures Referred By Contact Refer red To Contact Gastroenterology Diagnoses Diarrhea Abdominal colic Vomiting Rebeca Valerio, [facility] Gastro 4l DO [facility] [place] [address] [place] [address] Referral ID Status Reason Start Expiration Visits Visits Date Date Requested Authorized [id number] Complete-Ref Consult, 01/18/2014 07/17/2014 1 1 Provider Test & Notified Treat Encounter Details Date Type Department Care Team Description 01/18/2014 Orders Only Rheumatology at [facility] Rebeca Valerio Diarrhea; [facility] Ag Reeder DO Abdominal colic; [place] [address] [facility] Vomiting [phone] DR RHEUMATOLOGY DEP T. [place], [place] [address] (Wo rk) Social History Tobacco [...] Order Schedule Diagnoses Referral to Outpatient Routine Diarrhea Ordered: Gastroenterology Referral Abdominal colic 01/18/2014 Vomiting documented as of this encounter Visit Diagnoses Diagnosis Diarrhea Abdominal colic Colic Vomiting Vomiting alone documented in this encounter Care Teams Souvenir Assembler Relationship Specialty Start Date End Date Adrián Reynolds MD PCP - General 12/04/13 10/30/[address] [place] [address] documented as of this encounter
--- OUTSIDE RECORDS SUMMARY | 2022-08-04 16:27 | XMS_ITS | Encounter Summary ---
:1975 Author Organization [facility] [place] [address] Care Team Providers Name Role Phone Adrián Reynolds MD Primary Care Provider [phone] Reason for Visit Reason Onset Date Comments Arthritis 12/18/2013 Encounter Details Date Type Department Care Team Description 12/18/2013 Telephone Rheumatology at [facility] Deja [place] [address] Social History Tobacco Use Types Packs/Day Years Used Date Smoking Tobacco: Former Cigarettes Comments: quit 2 years ago Alcohol Use Standard Drinks/Week Comments No 0 (1 standard drink = 0.6 oz pure alcoho l) Sex Assigned at Date Recorded Not on file documented as of this encounter Miscellaneous Notes Telephone Encounter - Deja Ibanez RN - 12/21/2013 3:04 PM EDT What dose of medrol is she on? I would recommend that she go back up to the lowest but most effective dose that she has recently been on of the medrol, and stay at that dose x 5 days prior to tapering again. I have spoken with Monique and she is currently at 4 mg, she felt better at the 12 mg. She will restart at 12 mg and begin taper again after 5 days. She will call if not better by this time next week. She has refills on Medrol so no RX needed. Telephone Encounter - Deja Ibanez RN - 12/21/2013 2:47 PM EDT Monique calls again today and reports that she is not feeling any better than last week. Loose stools have stopped. She is still having pain in multiple joints, swelling of her hands, feet, legs, and shoulders. She reports a low grade fever of 99 degrees. She has been taking Tylenol and Medrol. Monique states she is unable to take usual Prednisone because it alters her mood severely. I will ask for her recommendations at this time. Telephone Encounter - Deja Ibanez RN - 12/18/2013 10:26 AM EDT I spoke with Monique today and she reports multiple joints aching, nausea and loose stools. She reports one of her children as having loose stools as well. Monique has recently had many medication changes and is currently taking Humira weekly, she has not been on that dose very long. She states she could have been exposed to a virus. She will call back Saturday if she is not feeling better. documented in this encounter Plan of Treatment Not on filedocumented as of this encounter Visit Diagnoses Not on filedocumented in this encounter Care Teams Sap Pi Architect Relationship Specialty Start Date End Date Adrián Reynolds MD PCP - General 12/04/13 10/30/15 [address] [place] [address] documented as of this encounter
--- OUTSIDE RECORDS SUMMARY | 2022-08-04 16:27 | XMS_ITS | Encounter Summary ---
:1975 Author Organization [facility] [place] [address] Care Team Providers Name Role Phone Unknown Primary Care Provider Unavailable Reason for Visit Reason Comments Rheumatoid Arthritis Encounter Details Date Type Department Care Team Description 11/27/2012 Follow-Up Rheumatology at [facility] RA Iman (rheumatoid arthritis) (P rimary Dx); [facility] Ag [place]eder, [place] [address] [facility] [phone] RHEUMATOLOGY [place], [place] [address] Social History Tobacco Use Types Packs/Day Years Used Date Smoking Tobacco: Former Cigarettes Comments: quit 2 years ago Alcohol Use Standard Drinks/Week Comments No 0 (1 standard drink = 0.6 oz pure alcoho l) Sex Assigned at Date Recorded Not on file documented as of this encounter Last Filed Vital Signs Vital Sign Reading Time Taken Comments Blood Pressure 130/82 11/27/2012 2:54 PM EDT Pulse 91 11/27/2012 2:54 PM EDT Temperature 36.7 ??C (98.1 ??F) 11/27/2012 2:54 PM EDT Respiratory Rate - - Oxygen Saturation 99% 11/27/2012 2:54 PM EDT Inhaled Oxygen Concentration - - Weight 95.5 kg (210 lb 9.6 oz) 11/27/2012 2:54 PM EDT Height 154.9 cm (5' 1) 11/27/2012 2:54 PM EDT Body Mass Index 39.79 11/27/2012 2:54 PM EDT documented in this encounter Progress Notes Rebeca Valerio, - 11/27/2012 3:13 PM EDT Outpatient Rheumatology Followup HPI: 37 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 The patient was diagnosed with seropositive RA in 2006 and was seen here once by Dr. Bello. Was following with a drywall metal stud worker at [facility]. Her RA control before was good on HCQ, MTX,and enbrel. She had very few flares on this combo. Prior xrays per patient showed no erosions. Unfortunately also got on this combination (her OCP was recalled b/c it was packaged improperly) and her prior drywall metal stud worker suggested aborting the . The patient opted not to do that and has been following her with [employer] and her is advancing normally. She stopped [...] with her in January 2012. Interim History: Is now off steroids and her weight is down. Has started participating in some wellness activities through her employer - has done yoga. Methotrexate is up to 25 mg weekly and that has helped but it has made her nauseated. Is taking folic acid but only an OTC preparation. Is still on enbrel and this combination seems to be OK. At last visit we had considered staring rituxan but for some reason it never got set up. Her son will turn 1 yo on Saturday. Her deacon is retiring and he has been understanding of her RA and has been flexible with her hours. She is worried about the next person not being as flexible. 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 RF+, CCP+ RA - continue methotrexate and enbrel - check labs today - I congratulated her regarding her weight loss efforts and getting off prednisone. -RTC in 3 months I spent 40 minutes with the patient today and 25 minutes was spent in counseling regarding her disease and its management and stress management documented in this encounter Plan of Treatment Not on filedocumented as of this encounter Procedures Procedure Name Priority Date/Time Associated Comments Diagnosis DIFFERENTIAL, Routine 11/27/2012 3:56 PM Results for this AUTOMATED EDT procedure are i n the results section. CBC (WITH DIFF) Routine 11/27/2012 3:56 PM RA (rheumatoid Resu lts for this EDT arthritis) procedure are i n the results section. CRP, CARDIAC RISK (HS Routine 11/27/2012 3:56 PM RA (rheumatoi d Results for this CRP) EDT arthritis) procedure are i n the results section. COMPREHENSIVE Routine 11/27/2012 3:56 PM RA (rheumatoid Result s for this METABOLIC PANEL EDT arthritis) procedure ar e in (NON-FASTING) the results section. documented in this encounter Results Differential, Automated (11/27/2012 3:56 PM EDT) P athologist Signature Neutrophils % 54.2 34.0 - CERNER 71.0 % MILLENNIUM Neutr Abs (ANC) 4.05 1.50 - CERNER 6.30 MILLENNIUM x10(3)/mcL Lymphocytes % 33.8 19.0 - CERNER 53.0 % MILLENNIUM Lymphocytes Abs 2.5 1.0 - 3.6 CERNER x10(3)/mcL MILLENNIUM Monocytes % 8.8 4.0 - 13.0 CERNER % MILLENNIUM Monocyte Abs 0.7 0.2 - 1.0 CERNER x10(3)/mcL MILLENNIUM Eosinophils % 2.8 0.0 - 7.0 CERNER % MILLENNIUM Eosinophils Abs 0.2 0.0 - 0.5 CERNER x10(3)/mcL MILLENNIUM Basophils % 0.3 0.0 - 2.0 CERNER % MILLENNIUM Basophils Abs 0.0 0.0 - 0.2 CERNER x10(3)/mcL MILLENNIUM Immature Gran % 0.10 0.00 - CERNER 0.66 % MILLENNIUM Comment: Immature granulocytes(IG's)percentage an d absolute count will include metamyelocytes, myelocytes, and promyelo cytes. Blood smears from CBCs yielding IG's will be scanned manually for concor dance. If this scan disagrees with the automated IG or if promyelocytes are not ed, a manual differential will be performed. Helen Gran Abs 0.01 0.00 - 0.05 x10(3)/mcL CER NER MILLENNIUM Specimen Anatomical Collection Method Collection Time Receive d Time (Source) Location / / Volume Laterality Blood specimen 11/27/2012 3:56 PM 013 4:01 (specimen) EDT PM EDT Rebeca Valerio DO HEMATOLOGY ORDERABLES Performing Organization Address City/State/[place] [address] CERNER MILLENNIUM High Sensitivity CRP (11/27/2012 3:56 PM EDT) P athologist Signature CRP High Sens 21.8 mg/L CERNER MILLENNIUM Comment: result rechecked NM Interpretations: 1) For cardiac risk assessment, two valu es (fasting or nonfasting sample acceptable) taken at least 2 weeks apart , should be averaged to provide a more reliable estimate of marker level. ??Thi s laboratory uses the recommendations from the AHA/CDC Scientific Statement fo r interpretations of future risks of cardiovascular events: ? <1.0 mg/L: low risk 1.0 - 3.0 mg/L: moderate risk >3.0 mg/L: high risk groups for future c ardiovascular events 2) The general reference range of appare ntly healthy individuals using this test is <5.0 mg/L (derived from the test package insert) A few words of caution: For cardiac asse ssment, when a value >10 mg/L is encountered, there should be a search fo r an acute inflammatory condition or infection (in patients with acute inflam mation, the concentration can increase to >500 mg/L). ??The >10 mg/L should be discarded if such a situation exists, since the risk for coronary heart diseas e cannot be provided, and a repeat specimen, taken at least two weeks after resolution of the acute inflammatory condition, may allow for appraisal of co ronary risk information. Please note that significantly decreased CRP values may be obtained from samples taken from patients who have bee n treated with carboxypenicillins. References: 1. Morgan YEE et. al. ??AHA/CDC Scientif ic Statement: Markers of Inflammation and Cardiovascular Disease. ??Circulatio n 2003; 107:499-511 2. Nedra PM. ??Clinical applications of C-reactive protein for cardiovascular disease detection and prevention. ??Circ ulation 2003; 107:363-369 Specimen Anatomical Collection Method Collection Time Receive d Time (Source) Location / / Volume Laterality Blood specimen 11/27/2012 3:56 PM 013 4:01 (specimen) EDT PM EDT Resulting Agency Comment Spec In Lab Rebeca Valerio DO CHEMISTRY ORDERABLES Performing Organization Address City/State/[place] [address] CERNER MILLENNIUM (ABNORMAL) Comprehensive metabolic panel (non-fasting) (11/27/2012 3:56 PM EDT) athologist Signature Glucose Lvl 88 60 - 199 CERNER mg/dL MILLENNIUM Comment: Diabetes: >=200 mg/dL plus symp toms BUN 12 8 - 18 mg/dL CERNER MILLENNIUM Creatinine 0.72 0.70 - 1.20 mg/dL CERNER MILL ENNIUM Comment: Please note that the pediatric reference intervals supplied above were not validated at [facility]. Results from pediatri c patients should be interpreted in conjunction to the patient's age, height and muscle mass. Sodium 143 135 - 145 mmol/L CERNER ARIS NIUM [...] - 15 mmol/L CERNER MILLENNIU M Calcium 9.6 8.5 - 10.5 mg/dL CERNER ARIS NIUM Total Protein 8.0 6.4 - 8.3 gm/dL CERNER MIL LENNIUM Albumin 4.2 3.2 - 5.2 gm/dL CERNER MILLENN IUM AST 24 0 - 30 unit/L CERNER MILLENNIU M ALT 23 0 - 30 unit/L CERNER MILLENNIU M Alk Phos 110 (H) 40 - 104 unit/L CERNER MILLENN IUM Total Bilirubin 0.4 0.2 - 1.3 mg/dL CERNER M ILLENNIUM Bili, Direct 0.1 0.0 - 0.3 mg/dL CERNER MILL ENNIUM Estimated GFR >60 >=60 CERNER MILLENNIU M Comment: The National Kidney Disease Education Pr ogram (NKDEP) has recommended all laboratories report estimated GFR (eGFR) along with plasma creatinine measurements to assist you with recognit ion of early kidney disease. Caveats: ??Plasma creatinine should be a t steady-state (unchanged within the past week). For patient s multiply eGFR by 1.2. The MDRD equation was developed using patients be tween the ages of 18 and 70 years. ?? The MDRD equation has not been validated for patients < 18 years of age and should not be used to assess renal function in the pediatric population. ??The MDRD eGFR equation will also overestimate the true GFR of patients above the age of 70. ??This overestimation is variable bu t increases with age. At present, NKDEP does NOT recommend usi ng the MDRD equation for drug dosing purposes and pharmacists should continue to use their current dosing methods. In addition, numerical eGFR values great er than 60 ml/min/1.73 square meters should be treated as > 60, and not an ex act number due to greater inaccuracies at these higher values. Per NKDEP, they classify normal renal function as any GFR >60ml/min/1.73 square meters; chronic kidney disease wh en GFR <60, and renal failure when GFR <15. ??This calculation may not be valid for patients with atypical muscle mass (very lean or obese), acute renal failur e, and in patients with diabetic kidney disease. References: http://nkdep.nih.gov/resources/NKDEP_Sug gestn4Labs_0606_508.pdf http://www.kidney.org/professionals/kls/ pdf/faq_gfr.pdf Yovany K, Lee NA, Meenu AK, Elkin TS, Vaughn AD, Malvin JACKY. Relative performance of the MDRD and CKD-EPI equa tions for estimating glomerular filtration rate among patients with vari ed clinical presentations. Clin J Am Soc Nephrol;6:1963-72. Specimen Anatomical Collection Method Collection Time Receive d Time (Source) Location / / Volume Laterality Blood specimen 11/27/2012 3:56 PM 013 4:01 (specimen) EDT PM EDT Resulting Agency Comment Spec In Lab Rebeca Valerio DO CHEMISTRY ORDERABLES Performing Organization Address City/State/[place] [address] CERNER MILLENNIUM (ABNORMAL) CBC (with Diff) (11/27/2012 3:56 PM EDT) P athologist Signature WBC 7.5 4.0 - 10.0 CERNER x10(3)/mcL MILLENNIUM RBC 4.61 3.93 - CERNER 5.22 MILLENNIUM x10(6)/mcL Hemoglobin 12.5 11.2 - CERNER 15.7 gm/dL MILLENNIUM Hematocrit 37.7 34.0 - CERNER 45.0 % MILLENNIUM MCV 81.8 79.0 - CERNER 94.0 fL MILLENNIUM MCH 27.1 26.6 - CERNER 32.2 pg MILLENNIUM MCHC 33.2 32.0 - CERNER 36.5 gm/dL MILLENNIUM Platelets 220 145 - 370 CERNER x10(3)/mcL MILLENNIUM RDWSD 43.1 35.0 - CERNER 46.0 fL MILLENNIUM RDWCV 14.6 (H) 10.9 - CERNER 14.4 % [facility] MPV 10.1 9.0 - 12.0 MICHELLE [facility] Specimen Anatomical Collection Method Collection Time Receive d Time (Source) Location / / Volume Laterality Blood specimen 11/27/2012 3:56 PM 013 4:01 (specimen) EDT PM EDT Resulting Agency Comment Spec In Lab Rebeca Valerio DO HEMATOLOGY ORDERABLES Performing Organization Address City/State/ZIP Code Phon e Number [place] [phone] [facility] documented in this encounter Visit Diagnoses Diagnosis RA (rheumatoid arthritis) - Primary Rheumatoid arthritis Obesity Obesity, unspecified documented in this encounter Care Teams Process Control Specialist Relationship Specialty Start Date End Date Unknown PCP - General 07/04/12 11/27/12 None documented as of this encounter
--- OUTSIDE RECORDS SUMMARY | 2022-08-04 16:27 | XMS_ITS | Encounter Summary ---
:1975 Author Organization [facility] [place] [address] Care Team Providers Name Role Phone Adrián Renyolds MD Primary Care Provider [phone] Encounter Details Date Type Department Care Team Description 01/11/2014 Orders Only Rheumatology at [facility] Rebeca Valerio, [place] [address] [facility] [phone] RHEUMATOLOGY [place], [place] [address] (Wo rk) Social History Tobacco [...] on filedocumented in this encounter Care Teams Tax Compliance Representative Relationship Specialty Start Date End Date Adrián Reynolds MD PCP - General 12/04/13 10/30/15 [address] [place], [place] [id number] documented as of this encounter
--- OUTSIDE RECORDS SUMMARY | 2022-08-04 16:27 | XMS_ITS | Encounter Summary ---
:1975 Author Organization [facility] [place] [address] Care Team Providers Name Role Phone Derrick Quesada DO Primary Care Provider Reason for Visit Reason Onset Date Comments Medication Refill 07/31/2013 Encounter Details Date Type Department Care Team Description 07/31/2013 Refill Rheumatology at [facility] Rebeca Valerio DO [facility] Ag [facility] [place] [address] RHEUMATOLOGY DEPT. [phone] [place], [place] [address] (Wo rk) Social History Tobacco [...] on filedocumented in this encounter Care Teams Riding Silks Custodian Relationship Specialty Start Date End Date Derrick Quesada DO PCP - General 04/03/13 12/03/[address] [place] [address] documented as of this encounter
--- OUTSIDE RECORDS SUMMARY | 2022-08-04 16:27 | XMS_ITS | Encounter Summary ---
:1975 Author Organization [facility] [place] [address] Care Team Providers Name Role Phone Adrián Reynolds MD Primary Care Provider [phone] Reason for Visit Reason Onset Date Comments Other 12/28/2013 follow up Encounter Details Date Type Department Care Team Description 12/28/2013 Telephone Rheumatology at [facility] Deja Ibanez RN Other (follow up) [place] [address] Social History Tobacco Use Types Packs/Day Years Used Date Smoking Tobacco: Former Cigarettes Comments: quit 2 years ago Alcohol Use Standard Drinks/Week Comments No 0 (1 standard drink = 0.6 oz pure alcoho l) Sex Assigned at Date Recorded Not on file documented as of this encounter Miscellaneous Notes Telephone Encounter - Deja Ibanez RN - 12/28/2013 3:12 PM EDT Monique states she was hospitalized last week for rectal bleeding. She was started on Cipro for Dysentary. She was asked to stop Humira until she feels better. Monique would like to speak with about the pain she is currently having everywhere in her body. She has an appointment next week but feels it cannot wait until next week. I have asked Monique to get onto [facility] and send me a message that describes what happened last week. Message to . documented in this encounter Plan of Treatment Not on filedocumented as of this encounter Visit Diagnoses Not on filedocumented in this encounter Care Teams Link Wire Fabric Machine Operator Relationship Specialty Start Date End Date Adrián Reynolds MD PCP - General 12/04/13 10/30/[address] [place] [address] documented as of this encounter
--- OUTSIDE RECORDS SUMMARY | 2022-08-04 16:27 | XMS_ITS | Encounter Summary ---
:1975 [place] [address] Care Team Providers Name Role Phone Derrick Quesada Primary Care Provider Reason for Visit Reason Onset Date Comments Follow-up 12/13/2011 mastitis Encounter Details Date Type Department Care Team Description 12/13/2011 Telephone Obstetrics and Jaron Newman RN Follow-up (mastitis) Gynecology at [place] [address] [place] [address] [phone] Social History Tobacco Use Types Packs/Day Years Used Date Smoking Tobacco: Former Cigarettes Comments: quit 2 years ago Alcohol Use Standard Drinks/Week Comments No 0 (1 standard drink = 0.6 oz pure alcoho l) Sex Assigned at Date Recorded Not on file documented as of this encounter Miscellaneous Notes Telephone Encounter - Jaron Newman RN - 12/13/2011 3:55 PM EDT Message copied by JARON NEWMAN on SatDec 13, 2011 3:55 PM ------ Message from: STEFANY RUIZ Created: SatDec 13, 2011 1:23 PM Please call she is visiting her baby in the [place] and she is having some breast problems ? Mastitis.She did not have her care here although it looks like she may have seen us for an ultrasound. Please call cell phone [phone] TELEPHONE NOTE Caller: Jaron Newman RN triage Reason for call: Sabine is here in our NICU with her baby. She had been given a rx for Cephalexin by one of the interns here [place] [facility] [place]. She is requesting to be seen in the clinic. Assessment: 5 days , breasts are engorged and very painful, one side is even more painful with a hot spot and lump. Patient has rheumatoid arthritis and is on Embrel, unable to breastfeed dueto this. Plan/Instructions: Appointment to be set up in the clinic, called the patient back but was not able to get an answer, message left on the cell voicemail. documented in this encounter Plan of Treatment Not on filedocumented as of this encounter Visit Diagnoses Not on filedocumented in this encounter Care Teams Coronary Care Unit Nurse Relationship Specialty Start Date End Date Derrick Quesada DO PCP - General 08/01/10 07/03/[address] [place] [address] documented as of this encounter
--- OUTSIDE RECORDS SUMMARY | 2022-08-04 16:27 | XMS_ITS | Encounter Summary ---
:1975 Author Organization [facility] [place] [address] Care Team Providers Name Role Phone Derrick Quesada DO Primary Care Provider Reason for Visit Reason Onset Date Comments Medication Refill 11/30/2013 Encounter Details Date Type Department Care Team Description 11/30/2013 Refill [place] [facility] Rebeca Valerio [facility] [place] [address] [place] [address] RHEUMATOLOGY DEPT. [phone] [place], [place] [address] (Wo rk) Social History Tobacco [...] on filedocumented in this encounter Care Teams Machinist Supervisor Outside Relationship Specialty Start Date End Date Derrick Quesada DO PCP - General 04/03/13 12/03/[address] [place] [address] documented as of this encounter
--- OUTSIDE RECORDS SUMMARY | 2022-08-04 16:27 | XMS_ITS | Encounter Summary ---
:1975 Author Organization [facility] [place] [address] Care Team Providers Name Role Phone Derrick Quesada Primary Care Provider Encounter Details Date Type Department Care Team Description 09/07/2011 Initial consult Obstetrics and Luci Rosario Medic ation exposure during first trimester of (Primary Dx); Gynecology at [facility] MD JILLIAN Orantes (advanced maternal age) multigravida [address] [facility] [address], [place] OBSTETRICS & [address] GYNECOLOGY [phone] [place], [place] [address] Social History Tobacco Use Types Packs/Day Years Used Date Smoking Tobacco: Never Alcohol Use Standard Drinks/Week Comments No 0 (1 standard drink = 0.6 oz pure alcoho l) Sex Assigned at Date Recorded Not on file documented as of this encounter Progress Notes Luci Rosario MD - 09/08/2011 1:27 PM EST Diagnosis/Maternal Medicine follow up note Monique Zamora is a 36 y.o. year old female with an ISIDRO 01/30/2012 who is at 19w2d weeks gestation. She is referred at the request of Beni Espinal MD for evaluation of anatomy in the context of medication exposure and advanced maternal age . She was seen previously for maternal- medicine consultation, ultrasound evaluation and genetic counseling with Dominga Graham, MS . First trimester screen gave revised risk estimates as follows: risk of T21: 1:4600, risk of T18: <1:10,000. She returns today due to inability to visualize lip and hands on prior ultrasound. Review of Systems Constitutional:feels well Movement: normal [...] 1988 2 SAB 1990 3 TRM 01/07 3.969kg(0ft15ep) M LTCS 4 TRM 10/13 3.799kg(8lb6oz) F LTCS 5 CUR Current outpatient prescriptions Medication Sig Dispense Refill ??? sertraline (ZOLOFT) 50 mg tablet Take 50 mg by mouth daily. ? ? vitamin 27 & [id number] 60 mg iron-1 mg tablet Take 1 [...] (Sulfonamide Antibiotics) CIS - Anaphylaxis Ultrasound Date: 09/07/2011 Amniotic fluid volume normal Placenta anterior Presentation breech anatomy appears within normal limits. Specifically the lips and hands appear unremarkable Physical Exam General: alert, well appearing, in no apparent distress, oriented to person, place and time HEENT: normocephalic, atraumatic Abdomen: Soft, nontender Extremities: no edema Neurologic:alert, oriented, normal speech, no focal findings or movement disorder noted Psychiatric: Affect is Appropriate. Assessment and Recommendations: 36 y.o. year old female at 19w3d weeks gestation with normal appearing anatomy. She remains quite anxious about the risk of trisomy 21 and her early Methotrexate exposure. I discussed that with a normal morphology ultrasound her risk is of trisomy 21 is ~ 1:9000. I also explained that ultrasound cannot detect all anomalies or neurodevelopmental problems. I appreciate the opportunity to be involved in this patients care, and am available if further questions should arise. documented in this encounter Plan of Treatment Not on filedocumented as of this encounter Visit Diagnoses Diagnosis Medication exposure during first trimest er of - Primary Supervision of other high-risk AMA (advanced maternal age) multigravida 35+ Elderly multigravida with antepartum con dition or complication documented in this encounter Care Teams Sheather Relationship Specialty Start Date End Date Derrick Quesada DO PCP - General 08/01/10 07/03/[address] [place] [address] documented as of this encounter
--- OUTSIDE RECORDS SUMMARY | 2022-08-04 16:27 | XMS_ITS | Encounter Summary ---
:1975 Author Organization [facility] [place] [address] Care Team Providers Name Role Phone Tai Sanjana Celestina DESOUZA Primary Care Provider Reason for Visit Reason Onset Date Comments Other 01/16/2013 Job issues Encounter Details Date Type Department Care Team Description 01/16/2013 Telephone [place] [facility] Deja Ibanez RN Other (Job issues) [place] [address] Social History Tobacco Use Types Packs/Day Years Used Date Smoking Tobacco: Former Cigarettes Comments: quit 2 years ago Alcohol Use Standard Drinks/Week Comments No 0 (1 standard drink = 0.6 oz pure alcoho l) Sex Assigned at Date Recorded Not on file documented as of this encounter Miscellaneous Notes Telephone Encounter - Deja Ibanez RN - 01/16/2013 10:[address] Valerio will help Monique with paperwork when she gets back from her leave. Monique will have paperwork faxed to me and she is ok with the wait from . Telephone Encounter - Deja Ibanez RN - 01/16/2013 9:44 AM EDT Monique calls here today crying and upset about her job and she states that she had talked with Dr. Valerio about filing for disabilty, and wants to have that paperwork started. I told her that I would give MD the message but generally we refer to PCP for this request and encouraged her to do so. She states she would like to talk with Dr. Valerio first. documented in this encounter Plan of Treatment Not on filedocumented as of this encounter Visit Diagnoses Not on filedocumented in this encounter Care Teams Pillow Cleaner Relationship Specialty Start Date End Date Sanjana Lujan APRN PCP - General 11/28/12 03/05/13 [address] [place] [address] documented as of this encounter
--- OUTSIDE RECORDS SUMMARY | 2022-08-04 16:27 | XMS_ITS | Encounter Summary ---
:1975 Author Organization [facility] [place] [address] Care Team Providers Name Role Phone Sanjana Lujan APRN Primary Care Provider Reason for Visit Reason Comments Rheumatoid Arthritis Encounter Details Date Type Department Care Team Description 03/05/2013 Follow-Up Rheumatology at [place] RA Iman (rheumatoid [facility] D marly Reeder DO arthritis) ([place] [address] [place] [address] Dx) [phone] RHEUMATOLOGY [place], [place] [address] Social History Tobacco Use Types Packs/Day Years Used Date Smoking Tobacco: Former Cigarettes Comments: quit 2 years ago Alcohol Use Standard Drinks/Week Comments No 0 (1 standard drink = 0.6 oz pure alcoho l) Sex Assigned at Date Recorded Not on file documented as of this encounter Last Filed Vital Signs Vital Sign Reading Time Taken Comments Blood Pressure 126/78 03/05/2013 12:58 PM EDT Pulse 84 03/05/2013 12:58 PM EDT Temperature 36.7 ??C (98 ??F) 03/05/2013 12:58 PM EDT Respiratory Rate - - Oxygen Saturation 100% 03/05/2013 12:58 PM EDT Inhaled Oxygen Concentration - - Weight 91.6 kg (202 lb) 03/05/2013 12:58 PM EDT Height 154.9 cm (5' 1) 03/05/2013 12:58 PM EDT Body Mass Index 38.17 03/05/2013 12:58 PM EDT documented in this encounter Progress Notes Rebeca Valerio DO - 03/05/2013 1:06 PM EDT Outpatient Rheumatology Followup HPI: 37 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 The patient was diagnosed with seropositive RA in 2006 and was seen here once by Dr. Bello. Was following with a vacation planner at [facility]. Her RA control before was good on HCQ, MTX,and enbrel. She had very few flares on this combo. Prior xrays per patient showed no erosions. Unfortunately also got on this combination (her OCP was recalled b/c it was packaged improperly) and her prior vacation planner suggested aborting the . The patient opted not to do that and has been following her with SEPARATOR [employer]PER[employer] and her is advancing normally. She stopped [...] January 2012. Interim History: Last seen in November. Was doing well on MTX and enbrel. Is doing really well right now. When she increased the dose of her mtx she got very nauseous, fatigued, hair falling out. Had to go to the ED x 2 b/c she could not keep anything down and got dehydrated. She had to stop her MTX completely. Feels better overall since stopping it. She is not having any big flares. If she does a lot of activity she will be a bit sore. Takes tramadol everyday in the morning and several times during the day. 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 Her children are all doing well. Recognizes that fibromyalgia pain is different from her RA pain. 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 Skin: warm and dry, no rheumatologic rashes Mouth: moist mucous membranes, no oral ulcers Eyes: normal sclerae Joints: some mild swelling in her 2nd and 3rd MCPs and they are tender Assessment and Plan: 1. RF+, CCP+ RA Continue enbrel No labs needed today She decided to stay working and see how the transition goes with a new deacon. RTC in 4 months. documented in this encounter Plan of Treatment Not on filedocumented as of this encounter Visit Diagnoses Diagnosis RA (rheumatoid arthritis) - Primary Rheumatoid arthritis documented in this encounter Care Teams Sign Wirer Relationship Specialty Start Date End Date Sanjana Lujan APRN PCP - General 11/28/12 03/05/13 [address] [place] [address] documented as of this encounter
--- OUTSIDE RECORDS SUMMARY | 2022-08-04 16:28 | XMS_ITS | Encounter Summary ---
:1975 Author Organization [facility] [place] [address] Care Team Providers Name Role Phone Derrick Quesada Primary Care Provider Encounter Details Date Type Department Care Team Description 07/20/2011 Hospital Encounter Ultrasound at [facility] Beni Espinal MD [address] [place] [address] [place] [address] Social History Tobacco Use Types Packs/Day [...] & Take 1 tablet by 0 06/20/2012 [id number] 60 mg mouth daily. iron-1 mg tablet [...] Priority Date/Time Associated Comments Diagnosis US OB NUCHAL Routine 07/20/2011 12:02 Results for this TRANSLUCENCY PM EST procedure are i n the results section. documented in this encounter Results US OB NUCHAL TRANSLUCENCY (07/20/2011 12:02 PM EST) Anatomical Region Laterality Modality Pelvis, Abdomen Ultrasound Specimen (Source) Anatomical Collection Method Collection Time Re ceived Time Location / / Volume Laterality 07/20/2011 12:02 PM EST Narrative 07/20/2011 12:04 PM EST ? OBSTETRICS REPORT ? (Signed Final 07/20/2011 11 :58 am) Patient Info ID: ?[id number] ?: ??[birth year] (36 yrs) Name: ?AARON MELGAR ? Visit Date: 07/20/2011 11:48 am Performed By Performed By: ?? Paris Morrison RDMS Attending: ?Raudel DOSS, Johnny Flores Referred By: ?Nydia LARA MD Accession#: ? [id number] OB History : ??5 Living: ? 2 ? BMI: ?? 40.05 Service(s) Provided UNT - Nuchal Translucency - First Trime ster ? [address]126 Screening - [id number] Indications First ??Trimester Screening - Check Nuc samira Translucency Evaluation Num Of Fetuses: ?1 Gest. Sac: ? Visualized Heart Rate: ??156 ? bpm Cardiac Activity: ??Observed, normal rh ythm Presentation: ?Variable Placenta: ?Too early to ev aluate Amniotic Fluid SHAYY FV: ?Too early to evaluate -------- Biometry -------- CRL: ?67.9 ??mm ?G. Age: ?? 13w 1d ?ISIDRO: ?? 01/24/12 Gestational Age LMP: ? 12w 2d ?Date : ??04/25/11 ? ISIDRO: ?? 01/30/12 Best: ?12w 2d ?? Det. By: ??LMP ??(04/25/11) ?ISIDRO: ?? 01/30/12 1st Trimester Genetic Sonogram Screening CRL: ?67.9 ??mm ?G. Age: ?? 13w 1d ? ISIDRO: ?? 01/24/12 Nuc Trans: ? 1.9 ??mm Cervix Uterus Adnexa Left Ovary: ?? Visualized Right Ovary: ??Visualized Impression 1st Trimester NT Summary Single living intrauterine wi th a gestational age of 12w 2d based on LMP. The crown rump length corresponds to a gestational age of 13w 1d. Nuchal translucency examination was per formed. ??NT = 1.9 mm. I ??viewed the images and agree with teddy moya above interpretation. Thank you for allowing us to participat e in the care of AARON MELGAR. Please do not hesitat e to call if you have any questions. ?Johnny layton MD Electronically Signed Final Report ?? 11:58 am Procedure Note Johnny Starks MD - 07/20/2011Formatt ing of this note might be different from the original. OBSTETRICS REPORT (Signed Final 07/20/2011 11:58 am) Patient Info ID: [id number] : [birth year] (36 yrs ) Name: AARON MELGAR Visit Date: 07/10 11:48 am Performed By Performed By: Paris Morrison RDMS Attending: Johnny Starks MD Referred By: Nydia LARA MD OB History : 5 Livin BMI: 40.05 Service(s) Provided UNT - Nuchal Translucency - First Trime ster [address] Screening - [id number] Indications First Trimester Screening - Check Nucha l Translucency Evaluation Num Of Fetuses: 1 Gest. Sac: Visualized Heart Rate: 156 bpm Cardiac Activity: Observed, normal rhyt hm Presentation: Variable Placenta: Too early to evaluate Amniotic Fluid SHAYY FV: Too early to evaluate -------- Biometry -------- CRL: 67.9 mm G. Age: 13w 1d ISIDRO: Gestational Age LMP: 12w 2d Date: 04/25/11 ISIDRO: 2 Best: 12w 2d Det. By: LMP (04/25/11) ED 1st Trimester Genetic Sonogram Screening CRL: 67.9 mm G. Age: 13w 1d ISIDRO: Nuc Trans: 1.9 mm Cervix Uterus Adnexa Left Ovary: Visualized Right Ovary: Visualized Impression 1st Trimester NT Summary Single living intrauterine wi th a gestational age of 12w 2d based on LMP. The crown rump length corresponds to a gestational age of 13w 1d. Nuchal translucency examination was per formed. NT = 1.9 mm. I viewed the images and agree with the above interpretation. Thank you for allowing us to participat e in the care of AARON MELGAR. Please do not hesitat e to call if you have any questions. Johnny Starks MD Electronically Signed Final Report 07/20 11:58 am Beni Espinal MD IMG OB ORDERABLES documented in this encounter Visit Diagnoses Not on filedocumented in this encounter Care Teams Compensation Associate Relationship Specialty Start Date End Date Derrick Quesada DO PCP - General 08/01/10 07/03/[address] [place] [address] documented as of this encounter
--- OUTSIDE RECORDS SUMMARY | 2022-08-04 16:30 | XMS_ITS | Encounter Summary ---
:1975 Author Organization [facility] Address [address] [place] [address] Care Team Providers Name Role Phone None, Provider Primary Care Provider Unavailable Rosa Elena Conway FLIGHT OPERATIONS MANAGER Primary Care Provider Encounter Details Date Type Department Care Team Description 11/01/2020 Lab Requisition [facility] Brittney Rodriguez Encounter for other Pathology & [address] general examination Laboratory Medicine [facility] [id number] [address] [facility] [phone] [place] [address] (Work) [phone] Social History Tobacco Use Types Packs/Day Years Used Date Smoking Tobacco: Never Assessed Sex Assigned at Date Recorded Not on file documented as of this encounter Plan of Treatment Not on filedocumented as of this encounter Procedures Procedure Name Priority Date/Time Associated Diagnosis Comme nts SURGICAL PATHOLOGY Today 11/01/2020 15:00 Encounter for othe r Results for this EST general examination procedur e are in the results section. documented in this encounter Results SURGICAL PATHOLOGY (11/01/2020 15:00 EST) Component Value Ref Test Analysis Performed At [facility] Range Method Time Signature Final A. ENDOMETRIUM, BIOPSY: 11/04/2020 [facility] Diagnosis - Fragments of benign endocervix. 9:08 E CENTER - Insufficient endometrium for evaluation. LABORATORY SERVICES Attestation There was 11/04/2020 [facility] MEDICAL Elect ronically significant 9:08 EST CENTER signed b y resident/fellow LABORATORY Olga Milian involvement in SERVICES MD Garcia on the diagnostic 2020 at evaluation of 0908 this case. By the signature below, the attending physician certifies that they have personally conducted a gross and/or microscopic examination of the described specimens and rendered or confirmed the above diagnosis. Clinical DUB 11/04/2020 [facility] MEDICAL History 9:08 [email or web address] LABORATORY SERVICES Gross A. 11/04/2020 [facility] MEDICAL Description Received in formalin bette d with proper patient identification (initials P, G) and endometrium is an aggregate of benton-brown mucinous soft tissue (1.1 x 0.9 x 0.2 cm). The specimen is submitted entirely in A1 9:08 [email or web address] C[facility] LABORATORY JONATHAN BRENNAN(ASCP) 11/02/2020 9:00 SERVICES Resident/Vic Griffin, 11/04/2020 [facility] MEDICAL w: MD Edd 9:08 [facility] LABORATORY SERVICES Performing Lab [facility] 11/04/2020 [facility] MEDIC AL LAB 9:08 [facility] LABORATORY SERVICES Scanned Images 11/04/2020 [facility] MEDICAL 9:08 [facility] LABORATORY SERVICES Specimen Anatomical Location Collection Method Collection Time Received Time (Source) / Laterality / Volume Tissue ENTIRE ENDOMETRIUM 11/01/2020 15:00 11/01 / Unknown EST 22:36 EST Brittney Rodriguez PATHOLOGY ORDERABLES Performing Organization Address City/State/ZIP Code Phon e Number [facility] [address] [place] [address] SERVICES documented in this encounter Visit Diagnoses Diagnosis Encounter for other general examination documented in this encounter Care Teams Pecan Gatherer Relationship Specialty Start Date End Date None, Provider PCP - General 02/15/15 11/01/20 Rosa Elena Conway NP PCP - General 11/02/20 documented as of this encounter
--- OUTSIDE RECORDS SUMMARY | 2022-08-04 16:30 | XMS_ITS | Encounter Summary ---
:1975 Author Organization [facility] Address [address] [place] [address] Care Team Providers Name Role Phone Rosa Elena Conway BINDERY SUPERVISOR Primary Care Provider Encounter Details Date Type Department Care Team Description 11/20/2021 Lab Requisition [facility] Outr Resulting Lab, Pathology & Laboratory Provider [facility] [address] [place] [address] Social History Tobacco Use Types Packs/Day Years Used Date Smoking Tobacco: Never Assessed Sex Assigned at Date Recorded Not on file documented as of this encounter Plan of Treatment Not on filedocumented as of this encounter Procedures Procedure Name Priority Date/Time Associated Diagnosis Comme nts LYME AB Routine 11/20/2021 13:10 EDT Results for this procedure are i n the results section . documented in this encounter Results LYME AB (11/20/2021 13:10 EDT) P athologist Signature Lyme Ab Negative Negative 11/21/2021 [facility] 11:46 EDT CENTER LABORAT[facility] SERVICES Specimen Anatomical Collection Method Collection Time Receive d Time (Source) Location / / Volume Laterality Blood VENOUS BLOOD / 11/20/2021 13:10 Unknown EDT 20:54 EDT Provider Outr Resulting Lab IMMUNOLOGY AND SEROLOGY OR DERABLES Performing Organization Address City/State/ZIP Code Phon e Number [facility] [address] [place] [address] SERVICES documented in this encounter Visit Diagnoses Not on filedocumented in this encounter Care Teams Offset Lithographic Press Operator Relationship Specialty Start Date End Date Rosa Elena Conway, BINDERY SUPERVISOR PCP - General 11/02/20 documented as of this encounter
--- OUTSIDE RECORDS SUMMARY | 2022-08-04 16:31 | XMS_ITS | Encounter Summary ---
:1975 Author Organization [facility] Address [address] [place] [address] Care Team Providers Name Role Phone None, Provider Primary Care Provider Unavailable Encounter Details Date Type Department Care Team Description 08/01/2015 Hospital Encounter [facility] Unknown, Provider, [facility] [address] [facility] [phone] [place] [address] (Work) [phone] Social History Tobacco Use Types Packs/Day Years Used Date Smoking Tobacco: Never Assessed Sex Assigned at Date Recorded Not on file documented as of this encounter Discharge Disposition Disposition Code Departure Means Destination Home or Self Correction documented in this encounter Plan of Treatment Not on filedocumented as of this encounter Visit Diagnoses Not on filedocumented in this encounter Care Teams Printed Circuit Boards Inspector Relationship Specialty Start Date End Date None, Provider PCP - General 02/15/15 11/01/20 documented as of this encounter
--- OUTSIDE RECORDS SUMMARY | 2022-08-04 16:31 | XMS_ITS | Encounter Summary ---
:1975 Author Organization [facility] Address [address] [place] [address] Care Team Providers Name Role Phone Unavailable Primary Care Provider Unavailable Encounter Details Date Type Department Care Team Description 06/01/2011 Results Only [facility] Carlos Alberto Espinal MD Laboratory Services - [address] [place] [address] [place] [address] [place] [address] [phone] Social History Tobacco Use Types Packs/Day Years Used Date Smoking Tobacco: Never Assessed Sex Assigned at Date Recorded Not on file documented as of this encounter Plan of Treatment Not on filedocumented as of this encounter Procedures Procedure Name Priority Date/Time Associated Diagnosis Comme nts PAP TEST- RESULT Routine 06/01/2011 0:00 EDT Resu lts for this ONLY procedure are i n the results section. documented in this encounter Results PAP TEST- RESULT ONLY (06/01/2011 0:00 EDT) Component Value Ref Test Analysis Performed At [facility] Method Time Signature Pathology CYTOPATHOLOGY REPORT ? ANGELINA Report: ? [facility] Reports generated via electr onic interface contain original data; ? however they are lacking the format of the original report. ? Caution should be taken when reading/interpreting unformatted reports. ? Name: ? MONIQUE MELGAR D ? Accession #: ? [id number] ? : ? 1975 (Age: 35) ??F ?Collect Date: ? 06/01/2011 ? Location: ? [facility] ? Receive Date: ? 06/05/2011 ? Provider: ?CARLOS ALBERTO P RAISA TER MD ? Copy to: ?LANE F BR ODERICK DO ? Specimen/Source: ? Pap Test, Vagina/Cervix/Endocervix, ThinPrep Imaging ? System with manual evaluatio n ? Last Menstrual Period: ? 08/16/11 ? Menstrual/ Status: ? SPECIMEN ADEQUACY ? Satisfactory for Eval uation ? - transformation zone compon ent absent ? GENERAL CATEGORIZATION ? Negative for Intraepi thelial Lesion or Malignancy ? Document reviewed and electr onically signed by: ? Johnny Stanford CT( CP) ? Report Date: ??10/03/ 2011 09:24 ? End of Report ? Specimen (Source) Anatomical Location Collection Method / Collectio n Time Received Time / Laterality Volume 06/01/2011 06/05/2011 Carlos Alberto Espinal MD PATHOLOGY ORDERABLES Performing Organization Address City/State/ZIP Code Phon e Number [facility] [address] [place] [address] SERVICES [facility] [address] [place] [address] documented in this encounter Visit Diagnoses Not on filedocumented in this encounter
--- OUTSIDE RECORDS SUMMARY | 2022-08-04 16:31 | XMS_ITS | Encounter Summary ---
:1975 Author Organization [facility] Address [address] [place] [address] Care Team Providers Name Role Phone DipakDerrick cottrell DO Primary Care Provider None, Provider Primary Care Provider Unavailable Rosa Elena Conway PROJECT MANAGEMENT IT SPECIALIST Primary Care Provider Encounter Details Date Type Department Care Team Description 11/20/2006 Hospital Encounter [facility] Lizette Dunne MD [place] [address] [facility] [address] [place], [place] [id number] [place] [address] [phone] (Wo rk) Social History Tobacco Use Types Packs/Day Years Used Date Smoking Tobacco: Never Assessed Sex Assigned at Date Recorded Not on file documented as of this encounter Plan of Treatment Not on filedocumented as of this encounter Procedures Procedure Name Priority Date/Time Associated Comments Diagnosis SSB ANTIBODIES BY Routine 11/20/2006 15:34 Result s for this AMADEO EDT procedure are i n the results section. SSA ANTIBODIES BY Routine 11/20/2006 15:34 Result s for this AMADEO EDT procedure are i n the results section. SM (CINTRON) ANTIBODY Routine 11/20/2006 15:34 Resu lts for this EDT procedure are i n the results section. CCP ANTIBODIES Routine 11/20/2006 15:34 Results f or this EDT procedure are i n the results section. URINE CULTURE IF Routine 11/20/2006 15:34 Results for this POSITIVE EDT procedure are i n the results section. DMARD PROFILE Routine 11/20/2006 15:34 Results fo r this EDT procedure are i n the results section. KETTLE GIRL ANTIBODIES BY Routine 11/20/2006 15:34 Result s for this AMADEO EDT procedure are i n the results section. ANTI DNA (DOUBLE Routine 11/20/2006 15:34 Results for this STRANDED) EDT procedure are i n the results section. URINE CHEMICAL (DIP) Routine 11/20/2006 15:34 Res ults for this & SEDIMENT (MICRO) EDT procedure are in WITHOUT REFLEX TO the result s CULTURE section. COMPLETE BLOOD COUNT Routine 11/20/2006 15:34 Res ults for this AND DIFFERENTIAL EDT procedure a re in the results section. BACTERIAL CULTURE, Routine 11/20/2006 15:34 Resul ts for this URINE EDT procedure are i n the results section. documented in this encounter Results BACTERIAL CULTURE, URINE (11/20/2006 15:34 EDT) Component Value Ref Test Analysis Performed At [facility] Range Method Time Signature Specimen Urine ALFARO Description [facility] Result Greater than 100,000 CFU/ml JANNETTE LOZANO LACTOBACILLUS SPECIES [facility] RAUSCH Report Status Final ANGELINA [id number] [facility] ROBERTS Specimen Anatomical Collection Method Collection Time Receive d Time (Source) Location / / Volume Laterality 11/20/2006 15:34 11/20/2006 EDT 17:09 EDT Lizette Dunne MD MICROBIOLOGY - GENERAL ORDER ANGELES Performing Organization Address City/State/ZIP Code Phon e Number [facility] [address] [place] [address] SERVICES [facility] [address] [place] [address] (ABNORMAL) UA WITH MICROSCOPIC (11/20/2006 15:34 EDT) [facility] Method Time Signature Color, UA Yellow [facility] Clarity, UA Clear [facility] Glucose, UA Norm NORM [facility] Bilirubin, UA Neg NEG [facility] Ketones, UA Neg NEG [facility] Specific 1.025 1.005 - ALF[place]O [place], 1.02 [facility] Urine Blood, UA Neg NEG [facility] pH, UA 6.0 5.0 - 9.0 [facility] Protein, UA Neg NEG [facility] Urobilinogen, Norm NORM ALFARO UA mg/dL [facility] Nitrite, UA Neg NEG [facility] Leuk Esterase Neg NEG [facility] WBC, UA less than 1 0 - 5 ALFARO /HPF [facility] RBC, UA less than 1 0 - 5 AL[facility]O /HPF [facility] Squam Frequent (A) NS /HPF [facility] Epithel, UA [facility] Renal None seen NS /HPF [facility] Epithel, UA [facility] Bacteria, UA None seen NS /HPF [facility] Crystals, UA None seen /HPF [facility] Hyaline None seen /LPF [facility] Casts, UA [facility] UA Comment Microscopic results ALFARO are unreliable on [facility] urines unrefrig >2hrs or refrig >8hrs. Mucus, UA Present ALFARO [facility] Specimen Anatomical Collection Method Collection Time Receive d Time (Source) Location / / Volume Laterality 11/20/2006 15:34 11/20/2006 EDT 15:45 EDT Lizette Dunne MD URINALYSIS ORDERABLES Performing Organization Address City/[facility] Phon e Number [facility] [address] [place] [address] SERVICES AN[facility] [address] [place] [address] CULTURE IF UA POSITIVE (11/20/2006 15:34 EDT) [facility] Method Time Signature Culture if Culture ALFARO Indicated indicated by [facility] urinalysis results. Specimen Anatomical Collection Method Collection Time Receive d Time (Source) Location / / Volume Laterality 11/20/2006 15:34 11/20/2006 EDT 15:45 EDT Lizette Dunne MD MICROBIOLOGY - GENERAL ORDER ANGELES Performing Organization Address City/[facility] Phon e Number [facility] [address] [place] [address] SERVICES [place]O [facility] [address] [place] [address] KETTLE GIRL ANTIBODY, IGG, SERUM (11/20/2006 15:34 EDT) [facility] Method Time Signature Auto Ab to <1.0Unit: U(Note) ANGELINA U1RNP,S -- EXPECTED VALUES -- ? [facility] (Ref Range) <25.0 ? Test Performed by: ? [facility] Dpt of Lab Med a nd Pathology ? [address], [place] [address] ? Emergency Manager: Rozina Lima III, M.D. ? Specimen Anatomical Collection Method Collection Time Receive d Time (Source) Location / / Volume Laterality 11/20/2006 15:34 11/20/2006 EDT 15:44 EDT Lizette Dunne MD IMMUNOLOGY AND SEROLOGY YAZ SHARMA Performing Organization Address City/State/ZIP Code Phon e Number [facility] [address] [place] [address] SERVICES [facility] [address] [place] [address] SS-B/LA ANTIBODY, IGG, SERUM (11/20/2006 15:34 EDT) Component Value Ref Test Analysis Performed At [facility] gist Range Method Time Signature Autoantibodies to 1.4Unit: U(Note) FLETC HER SS B/La -- EXPECTED VALUES -- ? PAT[facility] ROBERTS (Ref Range) <25.0 ? Test Performed by: ? [facility] Dpt of Lab Med a nd Pathology ? [address], [place] [address] ? Emergency Manager: Frankli n R. Cockerill, III, M.D. ? Specimen Anatomical Collection Method Collection Time Receive d Time (Source) Location / / Volume Laterality 11/20/2006 15:34 11/20/2006 EDT 15:44 EDT Lizette Dunne MD IMMUNOLOGY AND SEROLOGY YAZ SHARMA Performing Organization Address City/State/ZIP Code Phon e Number [facility] [address] [place] [address] SERVICES [facility] [address] [place] [address] SS-A/RO ANTIBODY, IGG, SERUM (11/20/2006 15:34 EDT) Component Value Ref Test Analysis Performed At [facility] gist Range Method Time Signature Autoantibodies to <1.0Unit: U(Note) SHILPI SHABAZZ SS A/Ro -- EXPECTED VALUES -- ? [facility] (Ref Range) <25.0 ? Test Performed by: ? [facility] Dpt of Lab Med a nd Pathology ? [address], [place] [address] ? Emergency Manager: Rozina Lima III, M.D. ? Specimen Anatomical Collection Method Collection Time Receive d Time (Source) Location / / Volume Laterality 11/20/2006 15:34 11/20/2006 EDT 15:44 EDT Lizette Dunne MD IMMUNOLOGY AND SEROLOGY YAZ SHARMA Performing Organization Address City/State/ZIP Code Phon e Number [facility] [address] [place] [address] SERVICES [facility] [address] [place] [address] SM ANTIBODIES, IGG, SERUM (11/20/2006 15:34 EDT) Component Value Ref Test Analysis Performed At [facility] gist Range Method Time Signature Autoantibodies to <1.0Unit: U(Note) SH[place] -- EXPECTED VALUES -- ? PAT[facility] RAUSCH (Ref Range) <25.0 ? Test Performed by: ? [facility] Dpt of Lab Med a nd Pathology ? [address], [place] [address] ? Emergency Manager: Rozina Lima III, M.D. ? Specimen Anatomical Collection Method Collection Time Receive d Time (Source) Location / / Volume Laterality 11/20/2006 15:34 11/20/2006 EDT 15:44 EDT Lizette Dunne MD IMMUNOLOGY AND SEROLOGY YAZ SHARMA Performing Organization Address City/State/ZIP Code Phon e Number [facility] [address] [place] [phone] SERVICES [facility] [address] [place] [address] DMARD PROFILE (11/20/2006 15:34 EDT) P athologist Signature Total Alkaline 77 38 - 126 [facility] Phosphatase U/L LAB AST 23 15 - 46 ANGELINA PAT[facility] U/L LAB ALT 32 9 - 52 U/L [facility] Albumin 4.8 3.4 - 4.9 [facility] g/dl LAB Creatinine 0.78 0.7 - 1.5 [facility] mg/dl LAB GFR, Calculated >60 ml/min/1.7 ANGELINA NEUMANN N 3m2 LAB Specimen Anatomical Collection Method Collection Time Receive d Time (Source) Location / / Volume Laterality 11/20/2006 15:34 11/20/2006 EDT 15:44 EDT Lizette Dunne MD CHEMISTRY & BLOOD GAS MESSI OHARA Performing Organization Address [facility] Phon e Number [facility] [address] [place] [phone] SERVICES AL[facility]O [facility] [address] [place] [phone] ANTI DNA (DOUBLE STRAND) (11/20/2006 15:34 EDT) athologist Signature Anti DNA (DS) Neg NEG Dils [facility] Specimen Anatomical Collection Method Collection Time Receive d Time (Source) Location / / Volume Laterality 11/20/2006 15:34 11/20/2006 EDT 15:44 EDT Lizette Dunne MD IMMUNOLOGY AND SEROLOGY YAZ SHARMA Performing Organization Address City/[facility]/ZIP Code Phon e Number [facility] [address] [place] [address] SERVICES [place]O [facility] [address] [place] [address] CCP ANTIBODIES (11/20/2006 15:34 EDT) [facility] Signature CCP Antibodies >100.0Unit: U/mL(Note) FL ETCHER -- EXPECTED VALUES -- ? [facility] (Ref Range) < or =5.0 ? Test Performed by: ? [facility] Dpt of Lab Med a nd Pathology ? [address], [place] [address] ? Emergency Manager: Rozina Lima III, MMarilynn ? Specimen Anatomical Collection Method Collection Time Receive d Time (Source) Location / / Volume Laterality 11/20/2006 15:34 11/20/2006 EDT 15:44 EDT Lizette Dunne MD IMMUNOLOGY AND SEROLOGY YAZ AMBARMAGO Performing Organization Address City/State/ZIP Code Phon e Number [facility] [address] [place] [address] SERVICES [place] [address] [place] [address] (ABNORMAL) HEMAGRAM AND DIFFERENTIAL (11/20/2006 15:34 EDT) Component Value Ref Test Analysis Performed At [facility] gist Range Method Time Signature WBC 16.18 (H) 4.0 - ALFARO 12.4 [facility] K/cmm RBC 5.04 3.86 - ALFARO 5.04 [facility] M/cmm Hemoglobin 14.7 11.6 - AL[facility]ARO 15.2 [facility] gm/dl HCT 43.1 34.9 - ALFARO 44.4 % [facility] MCV 86 81 - 98 [place] fl [facility] MCH 29.2 26.7 - AL[place]ARO 33.3 pg [facility] MCHC 34.1 32.1 - [place] 35.9 [facility] gm/dl PLT 344 (H) 141 - AL[place]ARO 320 [facility] K/cmm RDW-CV 16.7 (H) 11.7 - ALFARO 14.6 % [facility] Neutrophils 87.0 (H) 45.5 - ALFARO 79.7 % [facility] Lymphocytes 11.0 (L) 15.0 - ALFARO 46.8 % [facility] Monocytes 2.0 1.8 - AL[place] 12.0 % [facility] ABS Neutrophils 14.08 (H) 2.20 - AL[place]ARO 8.85 [facility] K/cmm ABS Lymphs 1.78 1.09 - ALFARO 3.30 [facility] K/cmm ABS Monocytes 0.32 0.1 - ALFARO 0.8 [facility] K/cmm RBC Morphology 1+ Anisocytosis ALFARO 1+ Microcytes [facility] Type of Diff: Manual AL[facility]ARO [facility] Specimen Anatomical Collection Method Collection Time Receive d Time (Source) Location / / Volume Laterality 11/20/2006 15:34 11/20/2006 EDT 15:44 EDT Lizette Dunne MD PACKAGES & DNA PROBE ORDERAB LES Performing Organization Address City/State/ZIP Code Phon e Number [facility] [address] [place] [address] SERVICES [place] [address] [place] [address] documented in this encounter Visit Diagnoses Not on filedocumented in this encounter Care Teams Manual Winder Relationship Specialty Start Date End Date Derrick Quesada DO PCP - General 12/12/11 02/14/15 [address] [facility] [place] [address] None, Provider PCP - General 02/15/15 11/01/20 Rosa Elena Conway, PROJECT MANAGEMENT IT SPECIALIST PCP - General 11/02/20 documented as of this encounter
--- OUTSIDE RECORDS SUMMARY | 2022-08-04 16:31 | XMS_ITS | Encounter Summary ---
:1975 Author Organization [facility] Address [address] [place] [address] Care Team Providers Name Role Phone Derrick Quesada Primary Care Provider Encounter Details Date Type Department Care Team Description 02/13/2012 Results Only [facility] Carlos Alberto Fagan MD Laboratory Services - [address] [place] [address] [place] [address] [place] [address] [phone] Social History Tobacco Use Types Packs/Day Years Used Date Smoking Tobacco: Never Assessed Sex Assigned at Date Recorded Not on file documented as of this encounter Plan of Treatment Not on filedocumented as of this encounter Procedures Procedure Name Priority Date/Time Associated Diagnosis Comme nts PAP TEST- RESULT Routine 02/13/2012 0:00 EDT Resu lts for this ONLY procedure are i n the results section. documented in this encounter Results PAP TEST- RESULT ONLY (02/13/2012 0:00 EDT) Component Value Ref Test Analysis Performed At [facility] Method Time Signature Pathology CYTOPATHOLOGY REPORT ANGELINA Report: [facility] Reports generated via electronic interface contain original data; however they are lacking the format of the original report. Caution should be taken when reading/interpreting unfkarol appiah reports. Name: ? MONIQUE MELGAR ? Accession #: ? [id number] : ? 1975 (Age: 36) ??F ?Collect Date: ? 02/13/2012 Location: ? [facility] ? Receive Date: ? 02/15/2012 Provider: ?CARLOS ALBERTO FAGAN MD Copy to: ? Specimen/Source: ? Pap Test, Vagina/Cervix/Endocervix, ThinPrep Imaging System with manual evaluation Last Menstrual Period: ? Menstrual/ Status: ? Post Previous Gynecologic Pathology: ? 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 Additional clinical information: on Methotrexate ? SPECIMEN ADEQUACY ? Satisfactory for Evaluation - transformation zone component present GENERAL CATEGORIZATION ? Negative for Intraepithelial Lesion or Malignancy ? Document reviewed and electronically signed by: ? CALOS Zelaya(ASCP) ? Report Date: ??02/20/2012 11:39 End of Report Specimen (Source) Anatomical Location Collection Method / Collectio n Time Received Time / Laterality Volume 02/13/2012 02/15/2012 Carlos Alberto Fagan MD PATHOLOGY ORDERABLES Performing Organization Address City/State/ZIP Code Phon e Number [facility] [address] [place] [address] SERVICES [facility] [address] [place] [address] documented in this encounter Visit Diagnoses Not on filedocumented in this encounter Care Teams Lone Lead Lineman Relationship Specialty Start Date End Date Derrick Quesada, PCP - General 12/12/11 02/14/15 [address] [place] [address] documented as of this encounter
--- OUTSIDE RECORDS SUMMARY | 2022-08-04 16:31 | XMS_ITS | Encounter Summary ---
:1975 Author Organization [facility] Address [address] [place] [address] Care Team Providers Name Role Phone DipakLane cottrell Primary Care Provider None, Provider Primary Care Provider Unavailable Rosa Elena Conway NP Primary Care Provider Encounter Details Date Type Department Care Team Description 01/22/2007 Hospital Encounter [facility] Lizette Dunne MD [place] [address] [facility] [place] [address] [place], [place] [id number] [place] [phone] (Wo rk) Social History Tobacco Use Types Packs/Day Years Used Date Smoking Tobacco: Never Assessed Sex Assigned at Date Recorded Not on file documented as of this encounter Plan of Treatment Not on filedocumented as of this encounter Procedures Procedure Name Priority Date/Time Associated Comments Diagnosis HPV DETECTION, HIGH Routine 07/15/2009 14:23 Resu lts for this RISK TYPES EST procedure are i n the results section. CYTOPATHOLOGY Routine 07/15/2009 0:00 Results for this EST procedure are i n the results section. SURGICAL PATHOLOGY Routine 06/30/2008 0:00 Result s for this EDT procedure are i n the results section. documented in this encounter Results HUMAN PAPILLOMA VIRUS DNA TEST (07/15/2009 14:23 EST) [facility] Method Time Signature Specimen Cervix, ALFARO Description ThinPrep [facility] vial Result Negative for ALFARO HPV types [facility] 16, 18, 31, 33, 35, 39, 45, 51, 52, 56, 58, 59, and 68. Report Status Final ALFARO 07/28/2009 [facility] Specimen Anatomical Collection Method Collection Time Receive d Time (Source) Location / / Volume Laterality 07/15/2009 14:23 07/26/2009 EST 14:[address] Quesada DO MICROBIOLOGY - GENERAL ORDER ANGELES Performing Organization Address City/State/ZIP Code Phon e Number [facility] [address] [place] [address] SERVICES [facility] [address] [place] [address] CYTOPATHOLOGY (07/15/2009 0:00 EST) Component Value Ref Test Analysis Performed At [facility] Range Method Time Signature Pathology CYTOPATHOLOGY REPORT ? ALFARO Report: ? [facility] Reports generated via TestSoup interface contain original data; ? however they are lacking the format of the original report. ? Caution should be taken when reading/interpreting unformatted reports. ? Name: ? AARON MELGAR ? Accession #: ? [id number] ? : ? 1975 (Age: 34) ??F ?Collect Date: ? 07/15/2009 ? Location: ? [facility] ? Receive Date: ? 07/18/2009 ? Provider: ?LANE F B LEANA DO ? Copy to: ? Specimen/Source: ? Pap Test, Cervix/Endocervix, ThinPrep Imaging System ? with manual evaluation ? Last Menstrual Period: ? 10/22/09 ? Hormonal/Contraceptive Statu s: ? Yes ? Previous Gynecologic Patholo gy: ? Yes: Abnormal pap 10-15 yrs ago ? Other: ? HPVDX - HPV testing requeste d regardless of diagnosis on current ThinPrep Pap ?? test. ? SPECIMEN ADEQUACY ? Satisfactory for Eval uation ? - transformation zone compon ent absent ? GENERAL CATEGORIZATION ? Negative for Intraepi thelial Lesion or Malignancy ? Document reviewed and electr onically signed by: ? Afua Cadet, CT( CP) ? Report Date: ??11/16/ 2009 11:55 ? End of Report ? Specimen (Source) Anatomical Location Collection Method / Collectio n Time Received Time / Laterality Volume 07/15/2009 07/18/2009 Lane Quesada DO PATHOLOGY ORDERABLES Performing Organization Address City/State/ZIP Code Phon e Number [facility] [address] [place] [address] SERVICES [facility] [address] [place] [address] SURGICAL PATHOLOGY (06/30/2008 0:00 EDT) Component Value Ref Test Analysis Performed At [facility] gist Range Method Time Signature Pathology SURGICAL PATHOLOGY REPORT ? EMILIO HER Report: Reports generated via electr onic interface contain original data; ? [facility] ROB[facility]S however they are lacking the format of the original report. ? Caution should be taken when reading/interpreting unformatted reports. ? Name: ? TALIA, PAULSHA D ? Accession #: ? [id number] ? : ? 1975 (Age: 33) ??F ? Collec t Date: ? 06/30/2008 ? Location: ? [facility] ? Re ceive Date: ? 07/01/2008 ? Provider: LORENA Davis DAMION MD ? Copy to: LANE F DIPAK DO ? RAJENDRA GARIBALDI MD ? Final Pathologic Diagnosis: ? Gallbladder, cholecys tectomy: ? 1. ?Chronic cho lecystitis. ? 2. ? Cholelithiasis (Mike ss diagnosis). ? 3. ? Reactive cystic dayanara t lymph node. ? Document reviewed and electr onically signed by: ? Vira Yun MD ? Report ??Date: 07/05/2008 16 :07 ? By the signature above, the attending physician certifies that he/she has ? personally conducted a gross and/or microscopic examination of the described ? specimens and rendered or co nfirmed the above diagnosis. ? Specimen(s) Received: ? Gallbladder ? Clinical History: ? Acute cholecystitis w /stones ? Gross Description: ? Received in formalin labelled Talia and gallbladder is the product of an intact cholecystectomy me asuring 8.5 cm in length by 2.8 cm in diameter. ??The serosa is benton-pink and glist ening. ??The mucosa is benton-jj and smooth to velvety with focal yellow streaking. ??The underlying wall averages 0.2 cm in thickness. The lumen contains a moderat e amount of green mucoid bile with four yellow-brown ovoid choleliths ranging fro m 1.0 to 1.8 cm in greatest dimension. ??The cystic ?? duct measures 0.3 cm in monika th, 0.2 cm in diameter, and is not grossly patent. ?? There is an ovoid, benton-pink and 1.5 cm in greatest dimension cystic duct node ?? identified. ??Four represent ative sections are submitted in one cassette which ?? includes the cystic duct mar gin, the cystic duct node, and two sections of ? gallbladder. ??(Sammi Root) /[facility] ? End of Report ? Specimen (Source) Anatomical Collection Method Collection Time Re ceived Time Location / / Volume Laterality 06/30/2008 07/01/2008 16:5 5 EDT Lorena Ireland MD PATHOLOGY ORDERABLES Performing Organization Address City/State/ZIP Code Phon e Number [facility] [address] [place] [address] SERVICES [facility] [address] [place] [address] documented in this encounter Visit Diagnoses Not on filedocumented in this encounter Care Teams Psychologist Counseling Relationship Specialty Start Date End Date Lane Quesada, PCP - General 12/12/11 02/14/15 [address] [place] [address] None, Provider PCP - General 02/15/15 11/01/20 Rosa Elena Conway, ANA PCP - General 11/02/20 documented as of this encounter
--- OUTSIDE RECORDS SUMMARY | 2022-08-04 16:31 | XMS_ITS | Encounter Summary ---
:1975 Author Organization [facility] Address [address] [place] [address] Care Team Providers Name Role Phone Unavailable Primary Care Provider Unavailable Encounter Details Date Type Department Care Team Description 01/22/2007 Before PRISM Converted [facility] - Lizette Dunne MD Visit (Maple) Maple conversion [address] 111 [facility] [address] [place], [place] [id number] [place] [phone] Social History Tobacco Use Types Packs/Day Years Used Date Smoking Tobacco: Never Assessed Sex Assigned at Date Recorded Not on file documented as of this encounter Progress Notes Shiva, Conv Adult Neuropsychologist - 07/16/2009 2331 EST DIVISION OF RHEUMATOLOGY PROGRESS/FOLLOWUP NOTE - 01/22/2007 WERO Zamora is a 31-year-old woman with seropositive rheumatoid arthritis who was seen in November 2006 for an initial consultation and is here today for a followup visit. She had a rheumatoid factor of 123 when last checked, and additional laboratories revealed CCP antibodies greater than 100 and frac tionated NANCY with all antibodies negative. When we last saw her, she was on prednisone 20 mg a day, methotrexate 20 mg weekly and Enbrel 50 mg subcutaneous weekly. The plan was to decreaseher prednisone dose and remain on the current dosing of methotrexate and Enbrel. She has been successful in tapering her prednisone and is currently on 3 mg a day. She says that her pain level is slightly increasingin her low back, ankles and hands, butshe has had no flares since we last saw her. She also says that she has been significantly more active. For instance, she did vegetable gardening all last weekend.Her energy level has also been improving. She complains of morning stiffness of about 30 minutes, mostly in her feet. She is tolerating the Enbrel and has some mild injection site reactions with some itchiness and redness only that lasts about 4 days. REVIEW OF SYSTEMS She denies fevers, chills, shortness of breath or chest pain, abdominal symptoms or dysuria, swollenor tender lymph nodes or increased thirst or urination. She complains of increased headaches and describes them in a helmet distribution about twice a week with migraine-like symptoms. She says she does not drink much fluid throughout the day and rarely urinates. She notes the increased headaches since being on the methotrexate. She does have a history of migraine. MEDICATIONS 1. Methotrexate 20 mg weekly. 2. Enbrel 50 mg subcutaneous weekly. 3. Prednisone 3 mg daily since 5 days ago. 4. TriNessa daily. 5. Folic acid 1 mg twice daily. 6. Celexa 20 mg daily. PHYSICAL EXAM The patient is in no acute distress. She rates pain a 3 out of 10 in her low back and hands. Weight 198 pounds, blood pressure 110/58, pulse 80, respirations 14. HEENT: Sclerae are anicteric with moistmucous membranes and no oral ulcers. Neck: No cervical or supraclavicular lymphadenopathy. Chest: Lungs are clear to auscultation bilaterally. Cardiovascular: Regular rate and rhythm without murmur. Joint exam: She has full, painless range of motion of the large joints of the upper and lower extremities. She is tender between the second and third MCPs of the left hand but has no soft tissue swelling. There is slight tenderness with slight fullness in the medial aspect of the ankles, and she has soft tissue swelling with tenderness at the third and fourth MTPs of the feet bilaterally. The remaining exam is unremarkable. LABS No new labs since November 20, 2006, and documented in her initial consultation. ASSESSMENT 1. Seropositive rheumatoid arthritis with improvement since we last saw her and with limited involvement at this time, mostly in the feet and mildly in the ankles. She has had improvement in her hands and wrists. She has been able to successfully taperher prednisone to low dose without having any flares. 2. Headaches, which could be secondary to the methotrexate; however, at this time, because she is significantly benefiting from the methotrexate, we would not want to stop it. She has mentioned that she drinks very little water or fluid throughout the day. It is important for her to significantly increase her fluid intake throughout the day, which would likely benefit her, not just with regard to decreasing the frequency of her headaches but also withregard her overall health. PLAN 1. Continue methotrexate and Enbrel at current doses. 2. Continue prednisone 3 mg per day for a total of 4 weeks and then taper by 1 mg every 4 weeks until she is off. 3. Increase her fluid intake daily to at least a liter and a half per day. We gave her an easy way to know that she is drinking enough, in that, her urine should be clear. 4. Labs are due and should be checked every 8 weeks while on the methotrexate. 5. We reminded her to please send us the x-rays of her hands and feet that were done at [facility] so thatwe can review them and have them for our records, but more importantly, to see when we should repeatthem to closely monitor her disease. 6. Follow up in April. I saw and examined the patient with Dr. Dunne. I agree with the HPI, exam findings and the plan of care as outlined above. I have documented any additions/changes in the body of the note. Signed by Matthew Townsend MD 01/30/2007 09:39 Reviewed by Lizette Dunne MD 01/28/2007 11:25 Argelia Smiley, Chadd Townsend MD Dictated by: Lizette Dunne MD Matthew Townsend MD - MD Vibha A - KELLI Job ID: [id number] Document ID: [id number] cc: Derrick Quesada DO documented in this encounter Plan of Treatment Not on filedocumented as of this encounter Visit Diagnoses Not on filedocumented in this encounter
--- OUTSIDE RECORDS SUMMARY | 2022-08-04 16:31 | XMS_ITS | Encounter Summary ---
:1975 Author Organization [facility] Address [address] [place] [address] Care Team Providers Name Role Phone Unavailable Primary Care Provider Unavailable Encounter Details Date Type Department Care Team Description 11/20/2006 Before PRISM Converted [facility] - Lizette Dunne MD Visit (Maple) Maple conversion [address] [facility] [address] [address] [place], [place] [id number] [place] [address] [id number] Social History Tobacco Use Types Packs/Day Years Used Date Smoking Tobacco: Never Assessed Sex Assigned at Date Recorded Not on file documented as of this encounter Consult Notes Shiva, Conv Right Of Way Appraiser - 07/15/2009 1632 EST DIVISION OF RHEUMATOLOGY CONSULTATION - 11/20/2006 HISTORY OF PRESENT ILLNESS: Monique Zamora is a 31-year-old white woman who was sent for consultation by Derrick Quesada DO, for management of her newly diagnosed rheumatoid arthritis. Patient says that she had been healthy and feeling well prior to early to mid June of 2006 when she woke up one morning and could not move a leg and an arm. She went to the emergency room at [facility] on June 19, 2006, and labs checked at that time showed antinuclear antibody with a titer of 1:80 with diffuse and speckled patterns, rheumatoid factor increased at 91, negative Lyme antibody and negative hepatitis C antibody. We do not have a record of the physical exam from that ER visit. The patient says that she then followed up on June 28, 2006, with her primary doctor, and rheumatoid factor checked on that day was 123 and Lyme antibody was negative. Patient says that she initially was put on prednisone andthen on July 26, 2006, began methotrexate at 7.5 mg daily. Patient says that she was having frequent flares of joint pain mostly affecting her knees, hips, shoulders, wrists and more recently her feet. She was followed at [facility] for a few months.Her methotrexate was eventually increased to 20 mg weekly at the end of September 2006. Some time in mid October she was started on Enbrel and will take her sixth dose at the end of this week. Patient is here today because she has had an increase in her prednisone to 20 mg daily and, according to the patient, she was not satisfied with the management of her rheumatoid arthritis at [facility]. Patient says that prior to starting the Enbrel, Dr. Quesada was trying to decrease her prednisone by 1 mg increments from 7.5 mgdaily and she was not tolerating it and experiencing flares in her symptoms. Since being on the Enbrel, patient says that her pain has gone from over a 10 out of 10 to a 2 to 3 out of 10, and her knees and hips bother her the most. Patient says she has had x-rays of her hands and feet done at [facility] but is not sure of the results. Patient says that since being on the higher doses of prednisone and stopping her antidepressant about three weeks ago she has been very emotional and tearful. 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 She says that she is motivated to taper the prednisone and does not like being on it. She also states that she wants to go back on her antidepressant because she feels that it helped hersignificantly. She also had been put on oxycodone and has been trying to taper off of that and says that she is afraid that because she has addictive behaviors it is important for her to get off of it. She also had smoked tobacco for a while and had quit totally while having her two children, ages 3 and 5, and started smoking again about eight months ago. She says she understands that tobacco and rheumatoid arthritis are a bad combination and also would like to eventually quit smoking as well. REVIEW OF SYSTEMS: A 13-point review was done with the patient and documented in her medical record.She complains of fatigue and weight gain since being on the prednisone, headaches, migraine in nature and more frequent since being off of her antidepressant, dry cough that she attributes to her smoking, nausea and occasional diarrhea over the last three to four weeks since being off of her antidepressant, chronic reflux for the past few years, and skin tightness on her hands and color changes of her hands and feet in the cold consistent with Raynaud's. Patient complains of morning stiffness for atleast an hour. Patient denies any fevers or chills, eye pain or dryness, nosebleeds, chest pain, dysu solo or gross hematuria, rash, photosensitivity or hair loss. She denies nonrestorative sleep. PAST MEDICAL HISTORY: 1. Depression and posttraumatic stress disorder. 2. Migraine headaches. 3. Presumed pneumonia at age 16. 4. Carpal tunnel release in 1994 or 1995 in the left wrist. 5. in 2000 and 2003. 6. Reportedly gallstones with intermittent right upper quadrant pain and no problems over the last several months. CURRENT MEDICATIONS: 1. Prednisone 20 mg daily. 2. Enbrel 50 mg subcu weekly. 3. Methotrexate 20 mg weekly. 4. Folic acid 2 mg daily. 5. Prevacid 30 mg daily. 6. Clonazepam 1 mg b.i.d. 7. Metoclopramide 10 mg every 6 hours as needed. 8. Ambien 10 mg at bedtime p.r.n. 9. Oxycodone 5 mg p.r.n. 10. TriNessa daily. ALLERGIES: SULFA CAUSES ANAPHYLAXIS AND RASH. SOCIAL HISTORY: Patient is and lives in [place], [place]. 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 She has a 3-year-old daughter and 5-year-old son. She smoked tobacco for a few years and quit around the births of her children and resumed tobacco, 3/4 ofa pack a day, about eight months ago. She does not drink alcohol. FAMILY HISTORY: Patient's aunt (mother's sister) has rheumatoid arthritis and was diagnosed at a similar age as the patient and is debilitated at this point because of the rheumatoid arthritis. Patienthas one brother and two sisters who are healthy. PHYSICAL EXAM: Patient appears in no acute distress. She denies any pain but says she has stiffness in her low back from driving. Blood pressure 110/74, pulse 68, respirations 14, weight 206 pounds andheight 61-1/2 inches. Patient was tearful at several points in taking the history but she appeared to have appropriate insight and judgment. HEENT: PERRL, EOMI. Sclerae are anicteric, moist mucous membranes, no oral ulcers and good dentition. Neck: No cervical or supraclavicular lymphadenopathy. Respiratory: Lungs are clear to auscultation bilaterally. Cardiovascular: Regular rate and rhythm without murmur. GI: Abdomen is obese, soft and nontender. Nohepatosplenomegaly. Skin: On the back of her upper arms she has erythema surrounding follicles with a few fine papules and pustules. There is no otherrash, nail pitting, cuticle overgrowth or dilated capillary loops in the nail beds. Neurologic: Symmetric deep tendon reflexes in the patellae, achilles, brachial radialis, triceps and biceps tendons; 5/5 strength throughout all large muscle groups. Sensation is intact to light touch of fingers and toes. Nonantalgic gait. Extremities: Mild soft tissue swelling and tenderness at the radial aspects of both wrists as well as between the second and third MCPs and over the second, third and fourth MTPs bilaterally. She has full painless range of motion of the large joints of the upper and lower extremities. Shehas full flexion and extension of the small joints of the hands and wrists. Her hips move well and she experiencesslight mild pain in the low back with externally rotating her left hip. She has mild crepitus in theknees with movement but no increased warmth or erythema. There is mild tenderness in the spine from about the lower thoracic spine to the lumbar spine as well as tenderness over both sacroiliac joints.She has good flexion of her back and does not experience any pain with the maneuver but does have pain with extension of her low back at the waist. She had some stiffness when she went up on her toes and pain in the heels but mostly from fissured, dry cracked skin on the heels. Labs from October 16, 2006, from [facility] show white count of 15.3, hemoglobin 14.2, hematocrit 42.2, platelets 269,000 with differential showing increased absolute neutrophils, lymphocytes and monocytes. Calcium was 8.9, glucose increased at 137, creatinine 0.9. Electrolytes within normal limits except for slightly decreased potassium of 3.2. Magnesium of 1.9. Labs from October 08, 2006, show sed rate of 17, C-reactive protein of 1.9, ALT 41, AST 13, creatinine 0.9 and CBC showing increased white countof 17.8 with hemoglobin of 14.8 and platelets of 347,000. ASSESSMENT: 1. Based on the patient's serologies with the positive rheumatoid factor on at least two occasions and increased CRP and findings on today's exam in her hands and feet, she likely has rheumatoid arthritis. Her history is not typical in that she seemed to experience an abrupt onset of sharp pain in thelarger joints including the shoulders and hips which is not typical for rheumatoid arthritis. Today she is on a fairly moderate dose of prednisone in addition to the high dose of methotrexate and Enbrel, and therefore we do not see any significant synovitis on exam. Because of some of the positives noted in the review of systems including the Raynaud's, reporting tightness of the skin of her hands, ongoing heartburn and the mouth dryness, we would want to fractionate the positive antinuclear antibody test to make sure that she does not have any other underlying autoimmune processes or connective-tissue disease such as scleroderma or lupus. We did not find anything on exam today to suggest that shehas these; however, because of the atypical presentation of her symptoms it would be worthwhile doing. 2. Patient was very tearful today during the exam and seemed to attribute that to being on the higher doses of prednisone as well as stopping her antidepressant. She did not indicate the reason for stopping her antidepressant other than saying that her primary doctor did not want her to be on it at this point. We are concerned about how tearful she was today during the visit, and it appeared that it would be beneficial to her to restart her antidepressant while she is waiting for followup with Dr. Quesada. We felt that this would be reasonable to do because it would help with her ability to taperoff of the oxycodone as well as down on her prednisone. PLAN: 1. Fractionate the NANCY and check SSA and SSB antibodies, double-stranded DNA, anti-Wu and anti-U1RNP. Will check cyclic-citrullinated peptide antibodies to know the titer for her rheumatoid arthritis to know the potential for her disease to be aggressive. 2. Check urinalysis for any protein or casts. 3. Check CBC with differential and DMARD profile to update her labs since being on the methotrexate. 4. She was given a standing order to check labs every eight weeks at [facility] and will have those sent to use as well as copies to Dr. Quesada. 5. Patient will continue to taper off the oxycodone as she is doing. 6. She was given a prescription for Celexa 20 mg daily with 30 tablets and no refills and we highly encouraged her to contact Dr. Quesada's office to see if she can follow up there sooner than December. 7. One of our nurses demonstrated the SureClick Enbrel pen that she will use for greater ease in administering her Enbrel and she was given prescription for a month's supply with refills. 8. Follow up in six weeks and we will be in touch with her in the meantime with the results of today's tests. Thank you very much for this consultation. Please do not hesitate to call us if you have any questions or concerns. I saw and examined the patient with Dr. Lizette Dunne. I agree with the HPI, exam findings and the plan of care as outlined above. I have documented any additions/changes in the body of the note. ADDENDUM: CCP antibodies > 100, WBC 16.2, HGB 14.7, PLT 344,000, DS-DNA negative, anti-Wu negative, anti-SSA and SSB negative, anti-U1RNP negative, AST 23, ALT 32, albumin 4.8, creatinine 0.78, alk phos 77, and urinalysis negative except for greater than 100,000 lactobacillus./TAF Signed by Matthew Townsend MD 11/25/2006 10:09 Reviewed by Lizette Dunne MD 11/25/2006 07:28 Argelia Smiley MDSheldon M Cooper, MD Dictated by: Lizette Dunne MD Matthew Townsend MD - Lizette Dunne MD P - KELLI Job ID: [id number] Document ID: [id number] cc: Derrick Quesada DO documented in this encounter Plan of Treatment Not on filedocumented as of this encounter Visit Diagnoses Not on filedocumented in this encounter
--- OUTSIDE RECORDS SUMMARY | 2022-08-04 16:31 | XMS_ITS | Encounter Summary ---
:1975 Author Organization [facility] Address [address] [place] [address] Care Team Providers Name Role Phone Unavailable Primary Care Provider Unavailable Encounter Details Date Type Department Care Team Description 12/08/2011 Results Only [facility] Carlos Alberto Fagan MD Laboratory Services - [address] [place] [id number] [place] [address] [place] [address] [phone] Social History Tobacco Use Types Packs/Day Years Used Date Smoking Tobacco: Never Assessed Sex Assigned at Date Recorded Not on file documented as of this encounter Plan of Treatment Not on filedocumented as of this encounter Procedures Procedure Name Priority Date/Time Associated Diagnosis [facility]me [facility] SURGICAL PATHOLOGY Routine 12/08/2011 0:00 EDT Re sults for this procedure are i n the results section. documented in this encounter Results SURGICAL PATHOLOGY (12/08/2011 0:00 EDT) Component Value Ref Test Analysis Performed At [facility] Method Time Signature Pathology SURGICAL PATHOLOGY REPORT SHILPI SHABAZZ Report: Reports generated via electronic interface contain rafael jon; PATO ROBERTS however they are lacking the format of the original report. Caution should be taken when reading/interpreting unformatte d reports. Name: ? MONIQUE MELGAR ? Accession #: ? [id number] ? : ? 1975 (Age: 36) ??F ? Collect Date: ? 12/08/2011 ? Location: ? [facility] ? Receive Date: ? 12/10/2011 ? Provider: CARLOS ALBERTO FAGAN MD Copy to: ? Final Pathologic Diagnosis: A. ?Fallopian tube, right, tubal ligation: 1. ?Full cross sections obtained, no pathologic features identified. B. ?Fallopian tube, left, tubal ligation: 1. ?Full cross sections obtained, no pathologic features identified. Document reviewed and electronically signed by: DENNIS POLK MD Report ??Date: 12/12/2011 15:10 By the signature above, the attending physician certifies th at he/she has personally conducted a gross and/or microscopic examin ation of the described specimens and rendered or confirmed the above diagnosis. Specimen(s) Received: A. ?Portion right fallopian tube B. ? Portion left fallopian tube Clinical History: ? Repeat , abruption; desire for sterilization ; LMP: 33 wks Gross Description: ? Received in formalin labelled Monique Melgar and right fallopian tube is a 2.5 cm in length by 0.7 cm in diameter tubular segment of tissue which has a generally smooth benton to focally benton-pale brown serosa. ??Two sales representative printing cross sections of the specimen are submitted as (A). Received in formalin labelled Nydia Melgar and left fallopian tube is a 2.1 cm in length by 0.7 cm in diameter tubular segment of tissue which has a generally smooth benton to foca lly benton-pale brown serosa. ??Two sales representative printing cross sections of the specimen are submitted as (B). ??([place])/[facility] End of Report Specimen (Source) Anatomical Collection Method Collection Time Re ceived Time Location / / Volume Laterality 12/08/2011 12/10/2011 16:1 9 EDT Carlos Alberto Fagan MD PATHOLOGY ORDERABLES Performing Organization Address City/State/ZIP Code Phon e Number [facility] [address] [place] [address] SERVICES [facility] [address] [place] [address] documented in this encounter Visit Diagnoses Not on filedocumented in this encounter
--- OUTSIDE RECORDS SUMMARY | 2022-08-04 16:31 | XMS_ITS | Encounter Summary ---
:1975 Author Organization [facility] Address [address] [place] [address] Care Team Providers Name Role Phone Derrick Quesada DO Primary Care Provider Encounter Details Date Type Department Care Team Description 02/10/2015 Hospital Encounter [facility] - S Unknown, Pro Nicole lopez MD [address] [employer] [phone] [place] [address] (Work) [phone] Social History Tobacco Use Types Packs/Day Years Used Date Smoking Tobacco: Never Assessed Sex Assigned at Date Recorded Not on file documented as of this encounter Discharge Disposition Disposition Code Departure Means Destination Home or Self [facility] documented in this encounter Plan of Treatment Not on filedocumented as of this encounter Visit Diagnoses Not on filedocumented in this encounter Care Teams Donkey Ride Operator Relationship Specialty Start Date End Date Derrick Quesada DO PCP - General 12/12/11 02/14/15 [address] [id number] documented as of this encounter
== END 2022-08-04 16:20 | disposition left against medical advice (07) ==
LOC: ER 16:21
PROVIDERS: PCP Nurse Practitioner
DX: Z53.21 Procedure and treatment not carried out due to patient leaving prior to being seen by health care provider (principal)